=== PATIENT | female | born 1960 ===

== ENCOUNTER 2016-10-19 20:01 | Emergency (ER) | payer MEDICAID, OTHER, SELFPAY ==
[2016-10-19 20:30] VITALS: O2SAT 100
[2016-10-19] MEDS ORDERED: Lactated Ringer's 1,000 ML IVB ONE (20:49)
[2016-10-19] MEDS ORDERED: Sodium Chloride 0.9% 1,000 ML ONE (21:08)
[2016-10-19 21:10] LABS: BASO % 0.6 % (0.0-2.0); EOS # 0.3 K/uL (0.0-0.7); EOS % 4.1 % (0.0-4.0); HEMOGLOBIN 12.7 g/dL (11.0-16.0); LYMPH # 2.4 K/uL (1.0-4.3); LYMPH % 33.2 % (20.0-40.0); MEAN CELL VOLUME 88.1 fL (81.0-99.0); MEAN CORPUSCULAR HEMOGLOBIN 29.6 pg (27.0-31.0); MEAN CORPUSCULAR HGB CONC 33.6 g/dL (33.0-37.0); MEAN PLATELET VOLUME 8.1 fL (7.2-11.7); MONO # 0.5 K/uL (0.0-0.8); MONO % 6.9 % (0.0-10.0); NEUT % 55.2 % (50.0-75.0); RBC 4.3 Mil/uL (3.80-5.20); RED CELL DISTRIBUTION WIDTH 13.2 % (11.5-14.5); WHITE BLOOD COUNT 7.3 K/uL (4.8-10.8)
[2016-10-19] MEDS ORDERED: Lactated Ringer's 1,000 ML ONE (21:14)
[2016-10-19 21:29] LABS: ALBUMIN 3.9 g/dL (3.5-5.0)
[2016-10-19 21:31] LABS: GFR AFRICAN-AMERICAN > 60; GFR NON-AFRICAN AMERICAN > 60
[2016-10-19 21:32] LABS: ALB/GLOB RATIO 1.1 (1.0-2.1); ALT/SGPT 27 U/L (9-52); AST/SGOT 36 U/L (14-36); BLOOD UREA NITROGEN 17 mg/dL (7-17); CALCIUM 9.1 mg/dl (8.6-10.4)
--- NOTE | 2016-10-19 22:19 | C.PDOC ---
History Of Present Illness Pt c/o diarrhea. Time Seen by Provider: 10/19/16 20:41 Chief Complaint (Nursing): GI Problem History Per: Patient Onset/Duration Of Symptoms: Days (2) Current Symptoms Are (Timing): Still Present Severity: Moderate Quality Of Discomfort: Unable To Describe Associated Symptoms: Diarrhea (watery) Alleviating Factors: None Last Bowel Movement: Today Recent travel outside of the [place]: No Additional History Per: Prior Records Past Medical History Reviewed: Historical Data, Nursing Documentation, Vital Signs Vital Signs: Last Vital Signs Temp 98.2 F 10/19/16 20:25 Pulse 84 10/19/16 20:25 Resp 20 10/19/16 20:25 BP 129/81 10/19/16 20:25 Pulse Ox 100 10/19/16 20:25 - Medical History PMH: Depression, Diabetes, HTN, Hypercholesterolemia, Hyperlipidemia, Schizophrenia Surgical History: - [facility] Procedures OTHER SKIN & SUBQ I D (07/30/13) Family History: States: Unknown Family Hx - Social History Hx Tobacco Use: No Hx Alcohol Use: No Hx Substance Use: No - Immunization History Hx Tetanus Toxoid Vaccination: No Hx Influenza Vaccination: Yes Hx Pneumococcal Vaccination: Yes Review Of Systems Except As Marked, All Systems Reviewed And Found Negative. Constitutional: Negative for: Fever, Weakness Cardiovascular: Negative for: Chest Pain Respiratory: Negative for: Shortness of Breath Gastrointestinal: Positive for: Diarrhea. Negative for: Vomiting, Abdominal Pain, Melena, Hematochezia, Hematemesis Musculoskeletal: Negative for: Neck Pain, Back Pain Skin: Negative for: Rash Neurological: Negative for: Weakness, Numbness, Headache, Dizziness Physical Exam - Physical Exam Appears: Non-toxic, No Acute Distress Skin: Normal Color, Warm, Dry, No Rash Head: Atraumatic, Normacephalic Eye(s): bilateral: Normal Inspection, PERRL, EOMI Oral Mucosa: Moist Neck: Normal ROM, Supple Cardiovascular: Rhythm Regular Respiratory: Normal Breath Sounds, No Accessory Muscle Use Gastrointestinal/Abdominal: Soft, No Tenderness, No Distention, No Guarding, No Rebound Back: No CVA Tenderness Extremity: Normal ROM Neurological/Psych: Oriented x3, Normal Motor, Normal Sensation ED Course And Treatment - Laboratory Results Result Diagrams: 10/19/16 21:06 10/19/16 21:06 Lab Interpretation: No Acute Changes O2 Sat by Pulse Oximetry: 100 Pulse Ox Interpretation: Normal Progress - Interventions Interventions:: Observation, Intravenous fluid - Data Reviewed Data Reviewed: Lab, Old records - Patient Status Patient status: Mostly improved - Continuity of Care Discussed patient case with:: Patient, ED Nurse - Patient Plan Patient Plan: Discharge, F/U with PCP, Continue present meds Disposition Counseled Patient/Family Regarding: Studies Performed, Diagnosis, Need For Followup, Rx Given - Disposition Referrals: [facility] [Outside] Disposition: HOME/ ROUTINE Disposition Time: 22:25 Condition: IMPROVED Additional Instructions: Drink plenty of fluids. Follow up in the clinic. Return to the ER if you develop fever, vomiting, abdominal pain, bloody stools, worsening of symptoms or if you have any other concerns. Prescriptions: Bismuth Subsalicylate [Pepto Bismol] 2 tab PO Q1 PRN #16 ctb PRN Reason: Diarrhea Instructions: Acute Diarrhea (ED) Print Language: HEBREW - Clinical Impression Clinical Impression: Acute diarrhea
[2016-10-19] MEDS ORDERED: Bismuth Subsalicylate 262 mg Chew Tab PO STA (22:28)
[2016-10-19 22:39] VITALS: BP 124/68; PULSE 76; RESP 18; TEMP 97.3
== END 2016-10-19 22:55 | disposition home or self-care (01) ==
LOC: C.ER 20:01
DX: R19.7 Diarrhea, unspecified (principal)
CPT/HCPCS: 80053; 85025; 99284; J7120

== ENCOUNTER 2016-11-15 21:10 | Emergency (ER) | payer OTHER ==
[2016-11-15 21:19] VITALS: BP 168/88; PULSE 88; RESP 16; TEMP 98; O2SAT 100
--- NOTE | 2016-11-15 21:50 | C.PDOC ---
History Of Present Illness Pt is here requesting a refill of her psych meds. 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 denies: Suicidal Thoughts, Suicidal Plan Additional History Per: Prior Records Past Medical History Reviewed: Historical Data, Nursing Documentation, Vital Signs Vital Signs: Last Vital Signs Temp 98 F 11/15/16 21:16 Pulse 88 11/15/16 21:16 Resp 16 11/15/16 21:16 BP 168/88 H 11/15/16 21:16 Pulse Ox 100 11/15/16 21:57 - Medical History PMH: Depression, Diabetes, HTN, Hypercholesterolemia, Hyperlipidemia, Schizophrenia Surgical History: - [facility] Procedures OTHER SKIN & SUBQ I D (07/30/13) Family History: States: Unknown Family Hx - Social History Hx Tobacco Use: No Hx Alcohol Use: No Hx Substance Use: No - Immunization History Hx Tetanus Toxoid Vaccination: No Hx Influenza Vaccination: Yes Hx Pneumococcal Vaccination: Yes Review Of Systems Except As Marked, All Systems Reviewed And Found Negative. Constitutional: Negative for: Fever, Weakness Cardiovascular: Negative for: Chest Pain Respiratory: Negative for: Shortness of Breath Gastrointestinal: Negative for: Vomiting, Abdominal Pain Musculoskeletal: Negative for: Neck Pain Skin: Negative for: Rash Neurological: Negative for: Weakness, Numbness Psych: Negative for: Psychosis Physical Exam - Physical Exam Appears: Non-toxic, No Acute Distress Skin: Normal Color, Warm, Dry, No Rash Head: Atraumatic, Normacephalic Eye(s): bilateral: Normal Inspection, PERRL, EOMI Neck: Normal ROM, Supple Cardiovascular: Rhythm Regular Respiratory: Normal Breath Sounds, No Accessory Muscle Use Gastrointestinal/Abdominal: Soft, No Tenderness Back: No CVA Tenderness Extremity: Normal ROM Neurological/Psych: Oriented x3, Normal Motor, Normal Sensation ED Course And Treatment O2 Sat by Pulse Oximetry: 100 Pulse Ox Interpretation: Normal Medical Decision Making Medical Decision Making: Pt's glucose is elevated, however she is asymptomatic and state that she forgot to take her Metformin today, but she has it. Disposition Counseled Patient/Family Regarding: Diagnosis, Need For Followup, Rx Given - Disposition Referrals: Samia Vaughn MD [Staff Provider] - Isis Roberson MD [Staff Provider] - Disposition: HOME/ ROUTINE Disposition Time: 21:50 Condition: STABLE Additional Instructions: Follow up with your primary doctor and your psychiatrist for further evaluation and treatment. Return to the ER if you develop suicidal or homicidal thoughts, worsening of symptoms or if you have any other concerns. Prescriptions: Divalproex [Depakote DR] 3 tab PO HS #30 tcp risperiDONE [RisperDAL Tab] 2 mg PO BID #30 tab Sertraline [Zoloft] 100 mg PO HS #30 tab Instructions: Medicine Refill (ED) Forms: [employer] (Occitan) Print Language: VATICAN CITIZEN - Clinical Impression Clinical Impression: Encounter for medication refill
== END 2016-11-15 22:14 | disposition home or self-care (01) ==
LOC: C.ER 21:10
DX: Z76.0 Encounter for issue of repeat prescription (principal); F20.9 Schizophrenia, unspecified

== ENCOUNTER 2017-06-20 15:07 | Emergency (ER) | payer OTHER ==
[2017-06-20 15:07] VITALS: BMI 28.8
[2017-06-20 15:22] VITALS: TEMP 98.1
--- NOTE | 2017-06-20 15:51 | C.PDOC ---
History Of Present Illness 57-year-old female, presents to the emergency department with multiple complaints. States she has a Hx of diabetes which is "always high" and she ran out of her medication. Last dose was this morning, and patient is requesting a prescription. Secondary complaint is pain in her right shoulder, ongoing intermittently for the past two months. Patient states she has a Hx of bipolar disorder (on Depakote), and feels very sad because her children moved away two weeks ago. Patient denies any changes in appetite, behavior, nausea/vomiting, SI /HI, chest pain, numbness/weakness, shortness of breath, dizziness, or any other associated symptoms. No other complaints at this time. Time Seen by Provider: 06/20/17 15:27 Chief Complaint (Nursing): High Blood Pressure History Per: Patient History/Exam Limitations: no limitations Onset/Duration Of Symptoms: Days Current Symptoms Are (Timing): Still Present Severity: Moderate Past Medical History Reviewed: Historical Data, Nursing Documentation, Vital Signs Vital Signs: Last Vital Signs Temp 98.1 F 06/20/17 15:17 Pulse 70 06/20/17 15:17 Resp 18 06/20/17 15:17 BP 147/85 06/20/17 15:17 Pulse Ox 100 06/20/17 18:13 - Medical History PMH: Depression, Diabetes, HTN, Hypercholesterolemia, Hyperlipidemia, Schizophrenia Denies: Diverticulitis, Chronic Kidney Disease Surgical History: - [facility] Procedures OTHER SKIN & SUBQ I D (07/30/13) Family History: States: No Known Family Hx - Social History Hx Tobacco Use: No Hx Alcohol Use: No Hx Substance Use: No - Immunization History Hx Tetanus Toxoid Vaccination: No Hx Influenza Vaccination: Yes Hx Pneumococcal Vaccination: Yes Review Of Systems Constitutional: Negative for: Fever Cardiovascular: Negative for: Chest Pain, Palpitations, Edema Respiratory: Negative for: Shortness of Breath Gastrointestinal: Negative for: Nausea, Vomiting Musculoskeletal: Negative for: Neck Pain, Back Pain Neurological: Negative for: Weakness, Numbness, Headache, Dizziness Physical Exam - Physical Exam Appears: Well, Non-toxic, No Acute Distress Skin: Normal Color, Warm, Dry, No Rash Head: Atraumatic, Normacephalic Eye(s): bilateral: PERRL Nose: Normal Oral Mucosa: Moist Lips: Normal Appearing Neck: Normal ROM Chest: Symmetrical Cardiovascular: Rhythm Regular, No Murmur Respiratory: Normal Breath Sounds, No Accessory Muscle Use Gastrointestinal/Abdominal: Soft, No Tenderness, No Guarding, No Rebound Extremity: Normal ROM, No Tenderness, No Deformity, No Swelling Neurological/Psych: Oriented x3, Normal Speech, Other (Calm, cooperative. No active psychosis. ) ED Course And Treatment - Laboratory Results Result Diagrams: 06/20/17 16:14 06/20/17 16:14 O2 Sat by Pulse Oximetry: 100 (RA) Pulse Ox Interpretation: Normal Progress - Re-Evaluation Re-evaluation Note: 06/20/17 15:51 D/W CRISIS WILL EVAL IN ER 06/20/17 16:22 SP EVAL CRISIS, CLEARED FOR OUTPT FU. - Data Reviewed Data Reviewed: Lab Disposition Counseled Patient/Family Regarding: Studies Performed, Diagnosis - Disposition Disposition Time: 19:00 Condition: STABLE Forms: [employer] (Nepali) - Clinical Impression Clinical Impression: Hyperglycemia due to type 2 diabetes mellitus, Schizophrenia, Bipolar 1 disorder - Scribe Statement The provider has reviewed the documentation as recorded by the Scribe (Joanne Palmer) All medical record entries made by the Scribe were at my direction and personally dictated by me. I have reviewed the chart and agree that the record accurately reflects my personal performance of the history, physical exam, medical decision making, and the department course for this patient. I have also personally directed, reviewed, and agree with the discharge instructions and disposition. Physician Patient Turnover Patient Signed Over To: Charlie Landaverde Handoff Comments: FU REPEAT LACTATE, FS, DISPO
[2017-06-20 16:20] LABS: EOS # 0.1 K/uL (0.0-0.7); EOS % 2.1 % (0.0-4.0); HEMOGLOBIN 13.3 g/dL (11.0-16.0); LYMPH # 1.2 K/uL (1.0-4.3); LYMPH % 22.8 % (20.0-40.0); MEAN CORPUSCULAR HEMOGLOBIN 30.2 pg (27.0-31.0); MEAN CORPUSCULAR HGB CONC 34.8 g/dL (33.0-37.0); MEAN PLATELET VOLUME 9.4 fL (7.2-11.7); MONO # 0.2 K/uL (0.0-0.8); MONO % 4.3 % (0.0-10.0); NEUT # 3.6 K/uL (1.8-7.0); NEUT % 69.8 % (50.0-75.0); RBC 4.41 Mil/uL (3.80-5.20); RED CELL DISTRIBUTION WIDTH 12.5 % (11.5-14.5); WHITE BLOOD COUNT 5.1 K/uL (4.8-10.8)
[2017-06-20 16:37] LABS: VENOUS BLOOD GAS BASE EXCESS -0.2 mmol/L (0.0-2.0); VENOUS BLOOD GAS PCO2 50 mmHg (40-60); VENOUS BLOOD GAS PO2 26 mm/Hg (30-55); VENOUS BLOOD PH 7.33 (7.32-7.43)
[2017-06-20 16:40] LABS: ALB/GLOB RATIO 1.1 (1.0-2.1); ALT/SGPT 20 U/L (9-52); AST/SGOT 19 U/L (14-36); BLOOD UREA NITROGEN 16 mg/dL (7-17); GFR AFRICAN-AMERICAN > 60; GFR NON-AFRICAN AMERICAN > 60
[2017-06-20] MEDS ORDERED: (Novolin R) Insulin Human Regular 100 units/ml vial IV STA (16:47)
[2017-06-20] MEDS ORDERED: Sodium Chloride 0.9% 1,000 ML IV ONE (16:47)
[2017-06-20] MEDS ORDERED: Sodium Chloride 0.9% 1,000 ML ONE (17:00)
[2017-06-20] MEDS ORDERED: (Novolin R) Insulin Human Regular 100 units/ml vial ONE (17:00)
[2017-06-20 19:05] LABS: VENOUS BLOOD GAS BASE EXCESS 2.7 mmol/L (0.0-2.0); VENOUS BLOOD GAS PCO2 50 mmHg (40-60); VENOUS BLOOD GAS PO2 30 mm/Hg (30-55); VENOUS BLOOD PH 7.37 (7.32-7.43)
[2017-06-20 19:36] VITALS: BP 139/82; PULSE 89; RESP 20; O2SAT 99
== END 2017-06-20 19:31 | disposition home or self-care (01) ==
LOC: C.ER 15:07
DX: E11.65 Type 2 diabetes mellitus with hyperglycemia (principal); F20.9 Schizophrenia, unspecified; F31.9 Bipolar disorder, unspecified; E78.00 Pure hypercholesterolemia, unspecified; I10 Essential (primary) hypertension
CPT/HCPCS: 80053; 80164; 82009; 82803; 82948; 85025; 96360; 99285; J7040

== ENCOUNTER 2017-09-08 11:02 | Inpatient (IN) | payer OTHER ==
[2017-09-08 11:17] VITALS: BMI 26.5
[2017-09-08] MEDS ORDERED: DiphenhydrAMINE 50 mg/ml Inj IVP STA (11:25)
[2017-09-08] MEDS ORDERED: Sodium Chloride 0.9% 1,000 ML IV ONE ×2 (11:25→12:17)
[2017-09-08] MEDS ORDERED: Sodium Chloride 0.9% 1,000 ML ONE (11:39)
[2017-09-08 11:42] LABS: BASO # 0.1 K/uL (0.0-0.2); BASO % 0.5 % (0.0-2.0); LYMPH # 0.8 K/uL (1.0-4.3); LYMPH % 6.3 % (20.0-40.0); MEAN CORPUSCULAR HGB CONC 33.7 g/dL (33.0-37.0); MEAN PLATELET VOLUME 8.6 fL (7.2-11.7); MONO # 0.6 K/uL (0.0-0.8); MONO % 4.9 % (0.0-10.0); NEUT # 11.1 K/uL (1.8-7.0); NEUT % 88.3 % (50.0-75.0); NRBC % 0.1 % (0.0-2.0); RBC 4.18 Mil/uL (3.80-5.20)
[2017-09-08 11:43] LABS: VENOUS BLOOD GAS BASE EXCESS -21.8 mmol/L (0.0-2.0); VENOUS BLOOD GAS PCO2 22 mmHg (40-60); VENOUS BLOOD GAS PO2 29 mm/Hg (30-55); VENOUS BLOOD PH 7.08 (7.32-7.43)
[2017-09-08] MEDS ORDERED: DiphenhydrAMINE 50 mg/ml Inj ONE (11:43)
[2017-09-08 11:47] LABS: WHITE BLOOD COUNT 12.6 K/uL (4.8-10.8)
[2017-09-08 11:48] LABS: PLATELET COUNT 314 K/uL (130-400)
--- NOTE | 2017-09-08 11:59 | C.PDOC ---
History Of Present Illness 57 y/o female with history of DM presents to ED with complaints of poor appetite associated with weakness, nausea and vomiting for 15 days. Patient also complaints of right shoulder pain and urinary frequency. Patietn denies diarrhea, fever, numbness or any other complaints at this time. Time Seen by Provider: 09/08/17 11:17 Chief Complaint (Nursing): Dizziness/Lightheaded History Per: Patient History/Exam Limitations: no limitations Onset/Duration Of Symptoms: Days Current Symptoms Are (Timing): Still Present Past Medical History Reviewed: Historical Data, Nursing Documentation, Vital Signs Vital Signs: Last Vital Signs Temp 97.4 F L 09/08/17 11:10 Pulse 110 H 09/08/17 11:34 Resp 20 09/08/17 11:34 BP 159/93 H 09/08/17 11:34 Pulse Ox 100 09/08/17 12:30 - Medical History PMH: Depression, Diabetes, HTN, Hypercholesterolemia, Hyperlipidemia, Schizophrenia Surgical History: - [facility] Procedures OTHER SKIN & SUBQ I D (07/30/13) Family History: States: No Known Family Hx - Social History Hx Tobacco Use: No Hx Alcohol Use: No Hx Substance Use: No - Immunization History Hx Tetanus Toxoid Vaccination: No Hx Influenza Vaccination: Yes Hx Pneumococcal Vaccination: Yes Review Of Systems Except As Marked, All Systems Reviewed And Found Negative. Gastrointestinal: Positive for: Nausea, Vomiting Genitourinary: Positive for: Frequency Musculoskeletal: Positive for: Shoulder Pain Physical Exam - Physical Exam Appears: Non-toxic, No Acute Distress Skin: Warm, Dry, No Rash Head: Atraumatic, Normacephalic Eye(s): bilateral: Normal Inspection Oral Mucosa: Moist Neck: Normal ROM, Supple Cardiovascular: Rhythm Regular, Other (Tachycardic) Respiratory: Normal Breath Sounds, No Rales, No Rhonchi, No Wheezing Gastrointestinal/Abdominal: Soft, No Tenderness, No Guarding, No Rebound Extremity: Tenderness (Right anterior shoulder), Capillary Refill (<2 seconds), No Deformity Extremity: Bilateral: Normal ROM Neurological/Psych: Oriented x3, Normal Speech, Normal Cognition ED Course And Treatment - Laboratory Results Result Diagrams: 09/08/17 11:37 09/08/17 11:37 ECG: Interpreted By Me, Viewed By Me ECG Rhythm: Sinus Tachycardia Rate From EC (BPM) O2 Sat by Pulse Oximetry: 100 (RA) Pulse Ox Interpretation: Normal Critical Care Time - Critical Care Note Total Time (in mins): 75 Documented critical care: time excludes all time spent performing seperately billable procedures. Medical Decision Making Medical Decision Making: Assessment: DKA Plan: Benadryl, Reglan, Iv fluids administered. Blood work, ECG, UA ordered Progress: 1229pm: Spoke to Hospitalist will admit patient for DKA 1234pm: Dr. Fred cope on consult for critical care Disposition Discussed With Dr.: Yossi Cope Doctor Will See Patient In The: ED Counseled Patient/Family Regarding: Studies Performed, Diagnosis - Disposition Disposition: HOSPITALIZED Disposition Time: 12:29 Condition: FAIR Forms: [facility] (Argentine) - Clinical Impression Clinical Impression: DKA (diabetic ketoacidoses)
[2017-09-08] MEDS ORDERED: Insulin Human Regular 100 UNIT in Sodium Chloride 0.9% 99 ML IV SCH ×2 (12:00→13:55)
[2017-09-08 12:18] LABS: BANDS 2 % (0-2); NEUTROPHIL 86 % (50-75); TOTAL CELLS COUNTED 100
[2017-09-08 12:19] LABS: LYMPHOCYTE 9 % (20-40); MONOCYTE 3 % (0-10); PLATELET ESTIMATE NORMAL (NORMAL)
[2017-09-08 12:29] LABS: ALB/GLOB RATIO 0.9 (1.0-2.1); ALBUMIN 4.1 g/dL (3.5-5.0); ALT/SGPT 13 U/L (9-52); AST/SGOT 14 U/L (14-36); BLOOD UREA NITROGEN 20 mg/dL (7-17); CALCIUM 9.7 mg/dl (8.6-10.4); GFR AFRICAN-AMERICAN 51; GFR NON-AFRICAN AMERICAN 42
[2017-09-08] MEDS ORDERED: Sodium Chloride 0.9% 1,000 ML IV SCH ×2 (12:30→16:56)
--- NOTE | 2017-09-08 12:31 | RAD ---
PROCEDURE: CHEST RADIOGRAPH, 1 VIEW HISTORY: SOB COMPARISON: 09/25/2015. FINDINGS: LUNGS: The lungs are well inflated and clear. PLEURA: No pneumothorax or pleural fluid seen. CARDIOVASCULAR: Normal. OSSEOUS STRUCTURES: No significant abnormalities. VISUALIZED UPPER ABDOMEN: Normal. OTHER FINDINGS: None. IMPRESSION: No active pulmonary disease.
--- NOTE | 2017-09-08 12:54 | CP.PCM.CON ---
History of Present Illness - History of Present Illness History of Present Illness: 57 y/o female with pmx of DM x 15 yrs presents to [facility] with c/o frequent urination, nausea/vomitting and abdominal pain. Patient denies any fevers, denies any chest pain, denies any dizziness. Patient takes metformin from her primary. Patient does not check her Blood glucose at home. ROS: n/v/abdominal pain all otherneg SH: denies any smoking denies any abdominal pain fh: parents with diabetes Review of Systems - Review of Systems Review of Systems: as per HPI Past Patient History - Infectious Disease Hx of Infectious Diseases: None - Past Medical History & Family History Past Medical History?: Yes - Past Social History Smoking Status: Never Smoked - CARDIAC Hx Hypercholesterolemia: Yes Hx Hypertension: Yes - PULMONARY Hx Respiratory Disorders: No - NEUROLOGICAL Hx Neurological Disorder: No - HEENT Hx HEENT Problems: No Other/Comment: to see far away uses glasse - RENAL Hx Chronic Kidney Disease: No - ENDOCRINE/METABOLIC Hx Endocrine Disorders: Yes Hx Diabetes Mellitus Type 2: Yes - HEMATOLOGICAL/ONCOLOGICAL Hx Blood Disorders: No - INTEGUMENTARY Hx Dermatological Problems: No - MUSCULOSKELETAL/RHEUMATOLOGICAL Hx Musculoskeletal Disorders: No Hx Falls: No - GASTROINTESTINAL Hx Diverticulitis: No - GENITOURINARY/GYNECOLOGICAL Hx Genitourinary Disorders: Yes Hx Urinary Tract Infection: Yes - PSYCHIATRIC Hx Depression: Yes Hx Schizophrenia: Yes Hx Substance Use: No - SURGICAL HISTORY Hx Surgeries: Yes Hx Tubal Ligation: Yes Other/Comment: ;fibroids removed - ANESTHESIA Hx Anesthesia: Yes Hx Anesthesia Reactions: No Meds Allergies/Adverse Reactions: Allergies Allergy/AdvReac Type Severity Reaction Status Date / Time No Known Allergies Allergy Verified 09/08/17 11:16 - Medications Medications: Current Medications Insulin Human Regular 100 unit (/ Sodium Chloride) 100 mls @ 6.46 mls/hr IV .[id number] JOSE LUIS; 0.1 UNIT/KG/HR PRN Reason: Protocol Last Admin: 09/08/17 12:44 Dose: 0.1 unit/kg/hr, 6.46 mls/hr Sodium Chloride (Sodium Chloride 0.9%) 1,000 mls @ 150 mls/hr IV .Q6H40M JOSE LUIS Sodium Chloride (Sodium Chloride 0.9%) 1,000 mls @ 1,000 mls/hr IV .Q1H ONE Stop: 09/08/17 13:16 Last Admin: 09/08/17 12:20 Dose: 1,000 mls/hr Physical Exam - Head Exam Head Exam: ATRAUMATIC, NORMAL INSPECTION, NORMOCEPHALIC - Eye Exam Eye Exam: EOMI, Normal appearance Pupil Exam: NORMAL ACCOMODATION - ENT Exam ENT Exam: Mucous Membranes Moist - Neck Exam Neck exam: Positive for: Normal Inspection - Respiratory Exam Respiratory Exam: Clear to Auscultation Bilateral, NORMAL BREATHING PATTERN - Cardiovascular Exam Cardiovascular Exam: Tachycardia, REGULAR RHYTHM, +S1, +S2 - GI/Abdominal Exam GI & Abdominal Exam: Normal Bowel Sounds, Soft. absent: Distended, Guarding - Extremities Exam Extremities exam: Positive for: normal inspection Results - Vital Signs Recent Vital Signs: Last Vital Signs Temp 97.4 F L 09/08/17 11:10 Pulse 110 H 09/08/17 11:34 Resp 20 09/08/17 11:34 BP 159/93 H 09/08/17 11:34 Pulse Ox 100 09/08/17 12:34 - Labs Result Diagrams: 09/08/17 11:37 09/08/17 11:37 Labs: Laboratory Results - last 24 hr 09/08/17 09/08/17 09/08/17 11:12 11:37 11:37 WBC 12.6 H D RBC 4.18 Hgb 13.0 Hct 38.5 MCV 92.0 D MCH 31.0 MCHC 33.7 RDW 13.0 Plt Count 314 D MPV 8.6 Neut % (Auto) 88.3 H Lymph % (Auto) 6.3 L Jenkins % (Auto) 4.9 Eos % (Auto) 0.0 Baso % (Auto) 0.5 Neut # (Auto) 11.1 H Lymph # (Auto) 0.8 L Jenkins # (Auto) 0.6 Eos # (Auto) 0.0 Baso # (Auto) 0.1 Neutrophils % (Manual) 86 H Band Neutrophils % 2 Lymphocytes % (Manual) 9 L Monocytes % (Manual) 3 Platelet Estimate Normal pO2 VBG pH VBG pCO2 VBG HCO3 VBG Total CO2 VBG O2 Sat (Calc) VBG Base Excess VBG Potassium Glucose Lactate Crit Value Called To Crit Value Called By Crit Value Read Back Blood Gas Notified Time Sodium 132 Potassium 5.0 Chloride 95 L Carbon Dioxide 6 L* D Anion Gap 37 H BUN 20 H Creatinine 1.3 H Est GFR ( Amer) 51 Est GFR (Non-Af Amer) 42 POC Glucose (mg/dL) > 500 H* Random Glucose 576 H* D Calcium 9.7 Magnesium 2.0 Total Bilirubin 1.0 AST 14 D ALT 13 Alkaline Phosphatase 187 H D Troponin I < 0.0120 Total Protein 8.7 H Albumin 4.1 Albumin/Globulin Ratio 0.9 L TSH 3rd Generation 2.11 Venous Blood Potassium 09/08/17 09/08/17 11:39 12:13 WBC RBC Hgb Hct MCV MCH MCHC RDW Plt Count MPV Neut % (Auto) Lymph % (Auto) Jenkins % (Auto) Eos % (Auto) Baso % (Auto) Neut # (Auto) Lymph # (Auto) Jenkins # (Auto) Eos # (Auto) Baso # (Auto) Neutrophils % (Manual) Band Neutrophils % Lymphocytes % (Manual) Monocytes % (Manual) Platelet Estimate pO2 29 L VBG pH 7.08 L* VBG pCO2 22 L VBG HCO3 6.1 VBG Total CO2 7.2 L VBG O2 Sat (Calc) 54.9 VBG Base Excess -21.8 L VBG Potassium 4.8 Glucose 569 H* D Lactate 2.0 Crit Value Called To Er, Crit Value Called By Rivas dasilva,magdy Crit Value Read Back Y Blood Gas Notified Time 1150 Sodium 130.0 L Potassium Chloride 90.0 L Carbon Dioxide Anion Gap BUN Creatinine Est GFR ( Amer) Est GFR (Non-Af Amer) POC Glucose (mg/dL) > 500 H* Random Glucose Calcium Magnesium Total Bilirubin AST ALT Alkaline Phosphatase Troponin I Total Protein Albumin Albumin/Globulin Ratio TSH 3rd Generation Venous Blood Potassium 4.8 Assessment & Plan - Assessment and Plan (Free Text) Assessment: Anion GAp metabolic acidosis 2nd DKA: start IVF ns at 150 ml/hr, start insuln at 0.1 units/kg/hr, BGM q1hrs -bgm/mag/phos/bhb q6hrs -change to d51/2NS when BGM <250 -dvt ppx lovenox -pud ppx not indicated -leukocytossis suspect stress related, hold abx unless, febrile, gore culture -Patient remains hemodynamically stable. -TRISTON: avoid nephrotix drugs, monitor urine output -at risk of cad: will benefit from asa + statin -dvt pp lovenox -pud ppx not indicated - Date & Time Date: 09/08/17 Time: 12:56
[2017-09-08 13:22] LABS: SQUAMOUS EPITHIAL 7 /hpf (0-5); URINE BILIRUBIN NEGATIVE (NEGATIVE); URINE BLOOD 2+ (NEGATIVE); URINE CLARITY Clear (Clear); URINE COLOR Straw (YELLOW); URINE GLUCOSE (UA) 3+ mg/dL (Normal); URINE LEUKOCYTE ESTERASE NEG Leu/uL (Negative); URINE PROTEIN 1+ mg/dL (NEGATIVE); URINE UROBILINOGEN NORMAL mg/dL (0.2-1.0)
--- NOTE | 2017-09-08 14:45 | CP.PCM.HP ---
<SilasRubia SGuy - Last Filed: 09/08/17 16:43> History of Present Illness - History of Present Illness History of Present Illness: Code status: DNR/DNI (discussed with patient on 09/08/17 at 14:00) Advanced directives: denies Healthcare proxy: - Ricardo Dallas ([phone]) CC: nausea/vomiting, dizziness, urinary frequency HPI: 57-year-old female with past medical history of DM, HTN, HLD, schizophrenia presents to the ED for evaluation of dizziness, cloudy vision, nausea and vomiting. She states she arrived to the ER via taxi. Patient states she has had a poor appetite for the past 15 days. She states she has been eating yogurt and fruits. She also reports urinary frequency and stress incontinence. She denies taking insulin and reports regularly taking Metformin 500mg BID. She reports improvement of nausea and blurry vision since arrival to hospital. She denies headache, chest pain, shortness of breath, palpitations, diarrhea, constipation or dysuria. She reports previous episodes of hyperglycemia which she had an ER visit in June 2017. She does not recall her last visit to her PMD. Per clinic chart her last visit to the [facility] for Diabetes was on 03/25/[address] Paulino who prescribed her Lantus 20 units BID however patient stated she does not take insulin at home. PMD: Dr. 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 absent: Chills, Fever, Headache - EENT Eyes: Blurred Vision - Cardiovascular Cardiovascular: absent: Chest Pain, Dyspnea, Leg Edema, Palpitations - Respiratory Respiratory: absent: Dyspnea - Gastrointestinal Gastrointestinal: Nausea, Vomiting. absent: Abdominal Pain - Genitourinary Genitourinary: Urinary Frequency, Urinary Urgency. absent: Dysuria, Hematuria - Neurological Neurological: Dizziness - Endocrine Endocrine: Polydipsia, Polyuria Past Patient History - Infectious Disease Hx of Infectious Diseases: None - Past Medical History & Family History Past Medical History?: Yes - Past Social History Smoking Status: Never Smoked - CARDIAC Hx Hypercholesterolemia: Yes Hx Hypertension: Yes - PULMONARY Hx Respiratory Disorders: No - NEUROLOGICAL Hx Neurological Disorder: No - HEENT Hx HEENT Problems: No Other/Comment: to see far away uses glasse - RENAL Hx Chronic Kidney Disease: No - ENDOCRINE/METABOLIC Hx Endocrine Disorders: Yes Hx Diabetes Mellitus Type 2: Yes - HEMATOLOGICAL/ONCOLOGICAL Hx Blood Disorders: No - INTEGUMENTARY Hx Dermatological Problems: No - MUSCULOSKELETAL/RHEUMATOLOGICAL Hx Musculoskeletal Disorders: No Hx Falls: No - GASTROINTESTINAL Hx Diverticulitis: No - GENITOURINARY/GYNECOLOGICAL Hx Genitourinary Disorders: Yes Hx Urinary Tract Infection: Yes - PSYCHIATRIC Hx Depression: Yes Hx Schizophrenia: Yes Hx Substance Use: No - SURGICAL HISTORY Hx Surgeries: Yes Hx Tubal Ligation: Yes Other/Comment: ;fibroids removed - ANESTHESIA Hx Anesthesia: Yes Hx Anesthesia Reactions: No Meds Allergies/Adverse Reactions: Allergies Allergy/AdvReac Type Severity Reaction Status Date / Time No Known Allergies Allergy Verified 09/08/17 11:16 Physical Exam - Constitutional Appears: No Acute Distress - Head Exam Head Exam: ATRAUMATIC, NORMAL INSPECTION - Eye Exam Eye Exam: EOMI, Normal appearance, PERRL. absent: Scleral icterus Pupil Exam: NORMAL ACCOMODATION - ENT Exam ENT Exam: Mucous Membranes Dry - Respiratory Exam Respiratory Exam: Clear to Auscultation Bilateral, NORMAL BREATHING PATTERN. absent: Rales, Rhonchi, Wheezes - Cardiovascular Exam Cardiovascular Exam: Tachycardia, REGULAR RHYTHM, +S1, +S2. absent: JVD - GI/Abdominal Exam GI & Abdominal Exam: Normal Bowel Sounds, Soft. absent: Tenderness - Extremities Exam Extremities exam: Positive for: normal capillary refill, normal inspection, pedal pulses present. Negative for: pedal edema, tenderness - Neurological Exam Neurological exam: Alert, CN II-XII Intact, Oriented x3 - Expanded Neurological Exam Expanded Patient oriented to: person, place, time Cranial nerves: EOM's Intact: Normal Sensory exam: Lower Extremity Light Touch: Normal, Upper Extremity Light Touch: Normal Neuro motor strength exam: Left Upper Extremity: 5, Right Upper Extremity: 5, Left Lower Extremity: 5, Right Lower Extremity: 5 Coma Scale Eye Opening: SPONTANEOUS Coma Scale Motor Response: OBEYS COMMANDS Coma Scale Verbal: Oriented Coma Scale Total: 15 - Psychiatric Exam Psychiatric exam: Depressed, Normal Affect - Skin Skin Exam: Normal Color Results - Vital Signs Recent Vital Signs: Last Vital Signs Temp 98.5 F 09/08/17 13:00 Pulse 111 H 09/08/17 14:10 Resp 27 H 09/08/17 14:10 BP 153/70 H 09/08/17 14:00 Pulse Ox 100 09/08/17 14:10 - Labs Result Diagrams: 09/08/17 11:37 09/08/17 11:37 Labs: Laboratory Results - last 24 hr 09/08/17 09/08/17 09/08/17 11:12 11:37 11:37 WBC 12.6 H D RBC 4.18 Hgb 13.0 Hct 38.5 MCV 92.0 D MCH 31.0 MCHC 33.7 RDW 13.0 Plt Count 314 D MPV 8.6 Neut % (Auto) 88.3 H Lymph % (Auto) 6.3 L Hernando % (Auto) 4.9 Eos % (Auto) 0.0 Baso % (Auto) 0.5 Neut # (Auto) 11.1 H Lymph # (Auto) 0.8 L Hernando # (Auto) 0.6 Eos # (Auto) 0.0 Baso # (Auto) 0.1 Neutrophils % (Manual) 86 H Band Neutrophils % 2 Lymphocytes % (Manual) 9 L Monocytes % (Manual) 3 Platelet Estimate Normal pO2 VBG pH VBG pCO2 VBG HCO3 VBG Total CO2 VBG O2 Sat (Calc) VBG Base Excess VBG Potassium Glucose Lactate Crit Value Called To Crit Value Called By Crit Value Read Back Blood Gas Notified Time Sodium 132 Potassium 5.0 Chloride 95 L Carbon Dioxide 6 L* D Anion Gap 37 H BUN 20 H Creatinine 1.3 H Est GFR ( Amer) 51 Est GFR (Non-Af Amer) 42 POC Glucose (mg/dL) > 500 H* Random Glucose 576 H* D Calcium 9.7 Phosphorus Magnesium 2.0 Total Bilirubin 1.0 AST 14 D ALT 13 Alkaline Phosphatase 187 H D Troponin I < 0.0120 Total Protein 8.7 H Albumin 4.1 Globulin 4.6 H Albumin/Globulin Ratio 0.9 L TSH 3rd Generation 2.11 Venous Blood Potassium Urine Color Urine Clarity Urine pH Ur Specific [place] Urine Protein Urine Glucose (UA) Urine Ketones Urine Blood Urine Nitrate Urine Bilirubin Urine Urobilinogen Ur Leukocyte Esterase Urine WBC (Auto) Urine RBC (Auto) Ur Squamous Epith Cells B-Hydroxybutyrate 09/08/17 09/08/17 09/08/17 11:39 12:13 12:18 WBC RBC Hgb Hct MCV MCH MCHC RDW Plt Count MPV Neut % (Auto) Lymph % (Auto) Hernando % (Auto) Eos % (Auto) Baso % (Auto) Neut # (Auto) Lymph # (Auto) Hernando # (Auto) Eos # (Auto) Baso # (Auto) Neutrophils % (Manual) Band Neutrophils % Lymphocytes % (Manual) Monocytes % (Manual) Platelet Estimate pO2 29 L VBG pH 7.08 L* VBG pCO2 22 L VBG HCO3 6.1 VBG Total CO2 7.2 L VBG O2 Sat (Calc) 54.9 VBG Base Excess -21.8 L VBG Potassium 4.8 Glucose 569 H* D Lactate 2.0 Crit Value Called To md Ron Crit Value Called By Rivas dasilva rrt Crit Value Read Back Y Blood Gas Notified Time 1150 Sodium 130.0 L Potassium Chloride 90.0 L Carbon Dioxide Anion Gap BUN Creatinine Est GFR ( Amer) Est GFR (Non-Af Amer) POC Glucose (mg/dL) > 500 H* Random Glucose Calcium Phosphorus 5.1 H Magnesium Total Bilirubin AST ALT Alkaline Phosphatase Troponin I Total Protein Albumin Globulin Albumin/Globulin Ratio TSH 3rd Generation Venous Blood Potassium 4.8 Urine Color Urine Clarity Urine pH Ur Specific [place] Urine Protein Urine Glucose (UA) Urine Ketones Urine Blood Urine Nitrate Urine Bilirubin Urine Urobilinogen Ur Leukocyte Esterase Urine WBC (Auto) Urine RBC (Auto) Ur Squamous Epith Cells B-Hydroxybutyrate 9.68 H 09/08/17 09/08/17 13:09 14:04 WBC RBC Hgb Hct MCV MCH MCHC RDW Plt Count MPV Neut % (Auto) Lymph % (Auto) Hernando % (Auto) Eos % (Auto) Baso % (Auto) Neut # (Auto) Lymph # (Auto) Hernando # (Auto) Eos # (Auto) Baso # (Auto) Neutrophils % (Manual) Band Neutrophils % Lymphocytes % (Manual) Monocytes % (Manual) Platelet Estimate pO2 VBG pH VBG pCO2 VBG HCO3 VBG Total CO2 VBG O2 Sat (Calc) VBG Base Excess VBG Potassium Glucose Lactate Crit Value Called To Crit Value Called By Crit Value Read Back Blood Gas Notified Time Sodium Potassium Chloride Carbon Dioxide Anion Gap BUN Creatinine Est GFR ( Amer) Est GFR (Non-Af Amer) POC Glucose (mg/dL) 497 H* Random Glucose Calcium Phosphorus Magnesium Total Bilirubin AST ALT Alkaline Phosphatase Troponin I Total Protein Albumin Globulin Albumin/Globulin Ratio TSH 3rd Generation Venous Blood Potassium Urine Color Straw Urine Clarity Clear Urine pH 5.0 Ur Specific [place] 1.011 Urine Protein 1+ H Urine Glucose (UA) 3+ H Urine Ketones 2+ H Urine Blood 2+ H Urine Nitrate Negative Urine Bilirubin Negative Urine Urobilinogen Normal Ur Leukocyte Esterase Neg Urine WBC (Auto) 1 Urine RBC (Auto) < 1 Ur Squamous Epith Cells 7 H B-Hydroxybutyrate Assessment & Plan - Assessment and Plan (Free Text) Assessment: DKA - Patient admitted to ICU - Type II Diabetes - Anion Gap 31 - Glucose on admission 446 --> 576 - B-Hydroxybutyrate: 9.68 - Chest Xray: No active pulmonary disease - EKG: NSR at 135bpm - UA: +glucose; ketones and blood - Medications: * Insulin Drip (will transition to SC insulin when anion gap is resolved and bicarb is >18) * Zofran 4mg IV q6 prn for nausea * NS @150cc/hr Metabolic Acidosis with Anion Gap - Secondary to DKA - Anion Gap 31 - VBG: pH 7.08; HCO3 6.1 Leukocytosis - Possibly secondary to Inflammatory Reaction due to DKA vs. Infection - WBC 12.6 with Left shift - UA Negative - f/u blood culture; urine culture History of Uncontrolled Diabetes Type II - Endocrinology consult: Dr. Gonzales --> help appreciated - hA1c (03/25/17): 13.9 - Please see DKA assessment - Per patient she was only taking Metformin 500mg bid at home - Patient is a [facility] patient and from her last visit for Diabetes on 03/25/17 Dr. Paulino prescribed her Lantus 20 units BID however patient stated she does not take insulin at home either due to aversion to insulin or due to monetary means. - After DKA resolves will start Novolog 70/30 - After DKA resolves will order a microalbumin urine/Creatinine ratio Microhematuria - UA: blood; RBC <1 - Will repeat UA after DKA resolves; if microhematuria persists will order a renal/bladder scan History of HTN - Restarted Home Medications: * Losartan Potassium 100mg daily - TSH (09/08/17): 2.11 - ECHO (09/26/15): EF 58%; normal biventricular function; insignificant trace of mitral and aortic regurgitation; no pericardial effusion History of HLD - Home Medication: Simvastatin 10mg HS * Replaced in house with Crestor 5mg HS - Lipid Panel (03/25/17): Triglycerices 314; Total Cholesterol 192; LDL 106; HDL 45 - f/u Lipid Panel History of Schizophrenia/questionable depression - Restarted Home Medications: * Depakote DR 500mg daily * Risperidone 1mg HS * Sertraline 100mg HS - f/u valproic acid level Prophylaxis - Lovenox 30mg SC Daily (DVT risk of 1) - SCDs - Protonix 40mg IV daily Case discussed with Dr. Yossi Rosen PGY-1 <Yossi Moore J - Last Filed: 09/09/17 17:30> Results - Vital Signs Recent Vital Signs: Last Vital Signs Temp 98.2 F 09/09/17 16:00 Pulse 97 H 09/09/17 17:00 Resp 15 09/09/17 17:00 BP 151/53 H 09/09/17 16:44 Pulse Ox 100 09/09/17 17:00 - Labs Result Diagrams: 09/09/17 06:23 09/09/17 14:27 Labs: Laboratory Results - last 24 hr 09/08/17 09/08/17 09/08/17 18:02 18:56 20:01 WBC RBC Hgb Hct MCV MCH MCHC RDW Plt Count MPV Neut % (Auto) Lymph % (Auto) Hernando % (Auto) Eos % (Auto) Baso % (Auto) Neut # (Auto) Lymph # (Auto) Hernando # (Auto) Eos # (Auto) Baso # (Auto) Puncture Site pCO2 pO2 HCO3 ABG pH ABG Total CO2 ABG O2 Saturation ABG Base Excess ABG Hemoglobin ABG Carboxyhemoglobin POC ABG HHb (Measured) ABG Methemoglobin Fredi Test VBG pH VBG pCO2 VBG HCO3 VBG Total CO2 VBG O2 Sat (Calc) VBG Base Excess VBG Potassium A-a O2 Difference Respiratory Index Hgb O2 Saturation Sodium Chloride Glucose Lactate FiO2 Potassium Carbon Dioxide Anion Gap BUN Creatinine Est GFR ( Amer) Est GFR (Non-Af Amer) POC Glucose (mg/dL) 325 H 277 H 231 H Random Glucose Calcium Phosphorus Magnesium Total Bilirubin AST ALT Alkaline Phosphatase Total Protein Albumin Globulin Albumin/Globulin Ratio Venous Blood Potassium Urine Opiates Screen Urine Methadone Screen Ur Barbiturates Screen Ur Phencyclidine Scrn Ur Amphetamines Screen U Benzodiazepines Scrn U Oth Cocaine Metabols U Cannabinoids Screen B-Hydroxybutyrate 09/08/17 09/08/17 09/08/17 21:07 22:00 22:14 WBC RBC Hgb Hct MCV MCH MCHC RDW Plt Count MPV Neut % (Auto) Lymph % (Auto) Hernando % (Auto) Eos % (Auto) Baso % (Auto) Neut # (Auto) Lymph # (Auto) Hernando # (Auto) Eos # (Auto) Baso # (Auto) Puncture Site pCO2 pO2 33 HCO3 ABG pH ABG Total CO2 ABG O2 Saturation ABG Base Excess ABG Hemoglobin ABG Carboxyhemoglobin POC ABG HHb (Measured) ABG Methemoglobin Fredi Test VBG pH 7.28 L VBG pCO2 33 L VBG HCO3 15.8 VBG Total CO2 16.5 L VBG O2 Sat (Calc) 70.3 H VBG Base Excess -10.2 L VBG Potassium 3.5 L A-a O2 Difference Respiratory Index Hgb O2 Saturation Sodium 138.0 Chloride 111.0 H Glucose 199 H Lactate 1.3 FiO2 Potassium Carbon Dioxide Anion Gap BUN Creatinine Est GFR ( Amer) Est GFR (Non-Af Amer) POC Glucose (mg/dL) 216 H 214 H Random Glucose Calcium Phosphorus Magnesium Total Bilirubin AST ALT Alkaline Phosphatase Total Protein Albumin Globulin Albumin/Globulin Ratio Venous Blood Potassium 3.5 L Urine Opiates Screen Urine Methadone Screen Ur Barbiturates Screen Ur Phencyclidine Scrn Ur Amphetamines Screen U Benzodiazepines Scrn U Oth Cocaine Metabols U Cannabinoids Screen B-Hydroxybutyrate 09/08/17 09/08/17 09/09/17 22:29 23:03 06:23 WBC RBC Hgb Hct MCV MCH MCHC RDW Plt Count MPV Neut % (Auto) Lymph % (Auto) Hernando % (Auto) Eos % (Auto) Baso % (Auto) Neut # (Auto) Lymph # (Auto) Hernando # (Auto) Eos # (Auto) Baso # (Auto) Puncture Site pCO2 pO2 HCO3 ABG pH ABG Total CO2 ABG O2 Saturation ABG Base Excess ABG Hemoglobin ABG Carboxyhemoglobin POC ABG HHb (Measured) ABG Methemoglobin Fredi Test VBG pH VBG pCO2 VBG HCO3 VBG Total CO2 VBG O2 Sat (Calc) VBG Base Excess VBG Potassium A-a O2 Difference Respiratory Index Hgb O2 Saturation Sodium 137 135 Chloride 110 H 109 H Glucose Lactate FiO2 Potassium 4.0 4.1 Carbon Dioxide 17 L 12 L Anion Gap 14 18 BUN 13 15 Creatinine 0.8 1.0 Est GFR ( Amer) > 60 > 60 Est GFR (Non-Af Amer) > 60 57 POC Glucose (mg/dL) 205 H Random Glucose 203 H 461 H* D Calcium 8.1 L 8.0 L Phosphorus 1.4 L 2.4 L Magnesium 1.7 1.8 Total Bilirubin 0.6 0.6 AST 27 18 ALT 16 19 Alkaline Phosphatase 139 H 138 H Total Protein 6.7 6.1 L Albumin 3.0 L 2.6 L Globulin 3.7 3.4 Albumin/Globulin Ratio 0.8 L 0.8 L Venous Blood Potassium Urine Opiates Screen Urine Methadone Screen Ur Barbiturates Screen Ur Phencyclidine Scrn Ur Amphetamines Screen U Benzodiazepines Scrn U Oth Cocaine Metabols U Cannabinoids Screen B-Hydroxybutyrate 3.17 H 09/09/17 09/09/17 09/09/17 06:23 06:30 08:04 WBC 5.0 D RBC 3.18 L Hgb 9.9 L D Hct 28.4 L MCV 89.4 D MCH 31.0 MCHC 34.7 RDW 12.8 Plt Count 171 D MPV 8.4 Neut % (Auto) 80.1 H Lymph % (Auto) 10.3 L Hernando % (Auto) 8.8 Eos % (Auto) 0.5 Baso % (Auto) 0.3 Neut # (Auto) 4.0 Lymph # (Auto) 0.5 L Hernando # (Auto) 0.4 Eos # (Auto) 0.0 Baso # (Auto) 0.0 Puncture Site pCO2 pO2 HCO3 ABG pH ABG Total CO2 ABG O2 Saturation ABG Base Excess ABG Hemoglobin ABG Carboxyhemoglobin POC ABG HHb (Measured) ABG Methemoglobin Fredi Test VBG pH VBG pCO2 VBG HCO3 VBG Total CO2 VBG O2 Sat (Calc) VBG Base Excess VBG Potassium A-a O2 Difference Respiratory Index Hgb O2 Saturation Sodium Chloride Glucose Lactate FiO2 Potassium Carbon Dioxide Anion Gap BUN Creatinine Est GFR ( Amer) Est GFR (Non-Af Amer) POC Glucose (mg/dL) 436 H* 417 H* Random Glucose Calcium Phosphorus Magnesium Total Bilirubin AST ALT Alkaline Phosphatase Total Protein Albumin Globulin Albumin/Globulin Ratio Venous Blood Potassium Urine Opiates Screen Urine Methadone Screen Ur Barbiturates Screen Ur Phencyclidine Scrn Ur Amphetamines Screen U Benzodiazepines Scrn U Oth Cocaine Metabols U Cannabinoids Screen B-Hydroxybutyrate 09/09/17 09/09/17 09/09/17 11:19 14:27 14:34 WBC RBC Hgb Hct MCV MCH MCHC RDW Plt Count MPV Neut % (Auto) Lymph % (Auto) Hernando % (Auto) Eos % (Auto) Baso % (Auto) Neut # (Auto) Lymph # (Auto) Hernando # (Auto) Eos # (Auto) Baso # (Auto) Puncture Site Rr pCO2 28 L pO2 91 HCO3 16.4 L ABG pH 7.31 L ABG Total CO2 15.0 L ABG O2 Saturation 99.0 H ABG Base Excess -10.9 L ABG Hemoglobin 9.7 L ABG Carboxyhemoglobin 2.0 H POC ABG HHb (Measured) 1.0 ABG Methemoglobin 1.5 Fredi Test Pos VBG pH VBG pCO2 VBG HCO3 VBG Total CO2 VBG O2 Sat (Calc) VBG Base Excess VBG Potassium A-a O2 Difference 24.0 Respiratory Index 0.3 Hgb O2 Saturation 95.5 Sodium 134 Chloride 109 H Glucose Lactate FiO2 21.0 Potassium 3.6 Carbon Dioxide 14 L Anion Gap 14 BUN 14 Creatinine 1.1 Est GFR ( Amer) > 60 Est GFR (Non-Af Amer) 51 POC Glucose (mg/dL) 448 H* Random Glucose 445 H* Calcium 8.2 L Phosphorus Magnesium Total Bilirubin AST ALT Alkaline Phosphatase Total Protein Albumin Globulin Albumin/Globulin Ratio Venous Blood Potassium Urine Opiates Screen Urine Methadone Screen Ur Barbiturates Screen Ur Phencyclidine Scrn Ur Amphetamines Screen U Benzodiazepines Scrn U Oth Cocaine Metabols U Cannabinoids Screen B-Hydroxybutyrate 09/09/17 09/09/17 14:44 16:16 WBC RBC Hgb Hct MCV MCH MCHC RDW Plt Count MPV Neut % (Auto) Lymph % (Auto) [place] % (Auto) Eos % (Auto) Baso % (Auto) Neut # (Auto) Lymph # (Auto) [place] # (Auto) Eos # (Auto) Baso # (Auto) Puncture Site pCO2 pO2 HCO3 ABG pH ABG Total CO2 ABG O2 Saturation ABG Base Excess ABG Hemoglobin ABG Carboxyhemoglobin POC ABG HHb (Measured) ABG Methemoglobin Fredi Test VBG pH VBG pCO2 VBG HCO3 VBG Total CO2 VBG O2 Sat (Calc) VBG Base Excess VBG Potassium A-a O2 Difference Respiratory Index Hgb O2 Saturation Sodium Chloride Glucose Lactate FiO2 Potassium Carbon Dioxide Anion Gap BUN Creatinine Est GFR ( Amer) Est GFR (Non-Af Amer) POC Glucose (mg/dL) 416 H* Random Glucose Calcium Phosphorus Magnesium Total Bilirubin AST ALT Alkaline Phosphatase Total Protein Albumin Globulin Albumin/Globulin Ratio Venous Blood Potassium Urine Opiates Screen Negative Urine Methadone Screen Negative Ur Barbiturates Screen Negative Ur Phencyclidine Scrn Negative Ur Amphetamines Screen Negative U Benzodiazepines Scrn Negative U Oth Cocaine Metabols Negative U Cannabinoids Screen Negative B-Hydroxybutyrate Attending/Attestation - Attestation I have personally seen and examined this patient.: Yes I have fully participated in the care of the patient.: Yes I have reviewed all pertinent clinical information: Yes Notes (Text): 09/09/17 17:29 Patient was seen and examined in the ICU on 09/08/[address] Rosen evaluated the patient. Yossi Moore D.O.
[2017-09-08 16:56] LABS: LDL CHOLESTEROL 86 mg/dL (0-129)
[2017-09-08 16:57] LABS: ALB/GLOB RATIO 0.8 (1.0-2.1); ALBUMIN 3.1 g/dL (3.5-5.0); ALT/SGPT 22 U/L (9-52); AST/SGOT 42 U/L (14-36); BLOOD UREA NITROGEN 15 mg/dL (7-17); CALCIUM 7.9 mg/dl (8.6-10.4); GFR AFRICAN-AMERICAN > 60; GFR NON-AFRICAN AMERICAN > 60; HDL CHOLESTEROL 24 mg/dL (30-70)
[2017-09-08 22:17] LABS: VENOUS BLOOD GAS BASE EXCESS -10.2 mmol/L (0.0-2.0); VENOUS BLOOD GAS PCO2 33 mmHg (40-60); VENOUS BLOOD GAS PO2 33 mm/Hg (30-55); VENOUS BLOOD PH 7.28 (7.32-7.43)
[2017-09-08 23:00] LABS: ALB/GLOB RATIO 0.8 (1.0-2.1); ALT/SGPT 16 U/L (9-52); AST/SGOT 27 U/L (14-36); BLOOD UREA NITROGEN 13 mg/dL (7-17); CALCIUM 8.1 mg/dl (8.6-10.4); GFR AFRICAN-AMERICAN > 60; GFR NON-AFRICAN AMERICAN > 60
[2017-09-08] MEDS: Dextrose 5%/0.9% NS 1,000 ML IV SCH (23:21)
[2017-09-08] MEDS ORDERED: (Lantus) Insulin Glargine, Recombinant SC STA (23:42)
--- NOTE | 2017-09-09 04:44 | CON ---
DATE: ENDOCRINOLOGY CONSULT LOCATION: Room 15, ICU HISTORY OF PRESENT ILLNESS: This is a 57-year-old female with known history of type 2 diabetes on oral hypoglycemic therapy, presenting here with generalized body weakness and supervening nausea, dyspnea, and vomiting for almost 2 weeks, in diabetic ketoacidosis and dehydration and is being referred now for diabetic management. PAST MEDICAL HISTORY: As mentioned above, history of chronic schizoaffective disorder and schizophrenia. Currently on psychotropic medications. History of type 2 diabetes, on oral hypoglycemic therapy, taking Januvia 25 mg daily and metformin at 1 gm b.i.d., history of hypertension and dyslipidemia. FAMILY HISTORY: Positive for diabetes, hypertension. SOCIAL HISTORY: The patient has a supportive family. No know substance use. REVIEW OF SYSTEMS: As per the family, she was seemed to have increasing generalized body weakness with hypersomnolence and lethargy and episodic bouts of dizziness and lightheadedness. No chest pains or palpitations or PNDs. Her oral intake has been variable with nausea, dyspepsia, intractable vomiting episodes; also admits to marked polyuria, nocturia, and polydipsia. PHYSICAL EXAMINATION: GENERAL: Average built female in no apparent distress. VITAL SIGNS: Blood pressure of 150/90, pulse of 100 beats per minute and regular, temperature 98, respirations 20. Height 5 and 1.5 inches, weight is 142 pounds. HEENT: Head is normocephalic. Eyes anicteric with pink conjunctivae. Funduscopy not possible at this time. Ears, nose, and throat, otherwise, normal. NECK: Supple. Thyroid gland is normal size. No carotid bruits or cervical adenopathy. CARDIOPULMONARY: Some adynamic precordium. S1 and S2 is rapid and regular. LUNGS: Clear to auscultation. ABDOMEN: Flat, soft with positive bowel sounds. EXTREMITIES: No peripheral edema. Pulses are +2 bilaterally. LABORATORY DATA: Chemistry showed BUN of 20, sodium 132, potassium 5, chloride 95, CO2 of 6. Glucose is 576 and creatinine 1.3. TSH is 2.11. ASSESSMENT: This is a 57-year-old female with uncontrolled and decompensated type 2 insulin requiring diabetes presenting here with marked hyperglycemic accelerations, supervening diabetic ketoacidosis, and dehydration with previous hyponatremia. PLAN OF MANAGEMENT: We will concur with the present initiation of intensive insulin drip infusion and would recommend the algorithm 1 for DKA protocol as ordered. We will initiate vigorous IV hydration and increase the normal saline to 200 mL per hour as ordered. We will obtain serial chemistries and supplement accordingly as needed. We will await for his CO2 to at least to be above 18 to discontinue the insulin drip and switch her over to basal and bolus insulin drug combination to optimize metabolic control. We will follow. Kaley Gonzales MD
[2017-09-09 06:34] LABS: BASO % 0.3 % (0.0-2.0); EOS % 0.5 % (0.0-4.0); LYMPH # 0.5 K/uL (1.0-4.3); LYMPH % 10.3 % (20.0-40.0); MEAN CELL VOLUME 89.4 fL (81.0-99.0); MEAN CORPUSCULAR HGB CONC 34.7 g/dL (33.0-37.0); MEAN PLATELET VOLUME 8.4 fL (7.2-11.7); MONO # 0.4 K/uL (0.0-0.8); MONO % 8.8 % (0.0-10.0); NEUT % 80.1 % (50.0-75.0); RBC 3.18 Mil/uL (3.80-5.20); RED CELL DISTRIBUTION WIDTH 12.8 % (11.5-14.5)
[2017-09-09] MEDS: (Novolog) Insulin Aspart, Recombinant 100 u/ml 10 ml vial SC SCH ×8 (06:35→21:29)
[2017-09-09 06:36] LABS: HEMOGLOBIN 9.9 g/dL (11.0-16.0)
[2017-09-09 06:52] LABS: ALB/GLOB RATIO 0.8 (1.0-2.1); ALBUMIN 2.6 g/dL (3.5-5.0); ALT/SGPT 19 U/L (9-52); AST/SGOT 18 U/L (14-36); BLOOD UREA NITROGEN 15 mg/dL (7-17); GFR AFRICAN-AMERICAN > 60; GFR NON-AFRICAN AMERICAN 57
[2017-09-09] MEDS: Dextrose 5%/0.9% NS 1,000 ML IV SCH (08:00)
[2017-09-09] MEDS ORDERED: Sodium Chloride 0.9% 1,000 ML IV SCH (08:45)
[2017-09-09] MEDS: Enoxaparin 30 mg Syringe SC SCH (09:21)
[2017-09-09] MEDS: Divalproex 500 mg DR Tab PO SCH (09:21)
[2017-09-09] MEDS: Cefepime IV 1 gm in Dextrose 1 GM/50 ML BAG IVPB SCH ×2 (10:15→21:29)
[2017-09-09] MEDS: Sodium Chloride 0.9% 1,000 ML IV SCH ×3 (12:17→18:11)
[2017-09-09 14:38] LABS: ABG ALLEN TEST POS; ARTERIAL BLOOD GAS HCO3 16.4 mmol/L (21-28); ARTERIAL BLOOD GAS HEMOGLOBIN 9.7 g/dL (11.7-17.4); ARTERIAL BLOOD GAS PCO2 28 mm/Hg (35-45); ARTERIAL BLOOD GAS PH 7.31 (7.35-7.45); ARTERIAL BLOOD GAS PO2 91 mm/Hg (80-100)
--- NOTE | 2017-09-09 14:45 | PN ---
DATE: ENDO FOLLOWUP NOTE LOCATION: [facility] in ICU room 15. SUBJECTIVE: This is a 57-year-old female with recent uncontrolled type 2 insulin-requiring diabetes, presenting here with diabetic ketoacidosis and dehydration and is now being followed closely for metabolic management. Hyperglycemic levels persist as noted with glucose values today still quite elevated and glucose levels ranging from 417 to 436 and 448 mg/dL. LABORATORY DATA: Her latest chemistry showed a BUN of 15, sodium 135, potassium 4.1, chloride 109, CO2 is 12, glucose is 461, and creatinine is 1. ASSESSMENT AND PLAN: So at this time, we will modify once again her basal and bolus insulin regimen and increase the Lantus to 40 units subcu at bedtime daily to start tonight. We will also increase her NovoLog to 12 units subcu t.i.d. before meals to start at lunch time today as ordered. We will titrate incrementally as indicated to optimize metabolic control. We will also increase the IV hydration to 150 mL/hour with normal saline infusion as given. We will obtain serial chemistries and supplement accordingly as needed. We will follow with you. Kaley Gonzales MD
[2017-09-09 14:47] LABS: BLOOD UREA NITROGEN 14 mg/dL (7-17); CALCIUM 8.2 mg/dl (8.6-10.4); GFR AFRICAN-AMERICAN > 60; GFR NON-AFRICAN AMERICAN 51
[2017-09-09 15:06] LABS: BARBITURATES, UR NEGATIVE (NEGATIVE); BENZODIAZEPINES, UR NEGATIVE (NEGATIVE); OPIATES, UR NEGATIVE (NEGATIVE); PHENCYCLIDINE, UR NEGATIVE (NEGATIVE)
--- NOTE | 2017-09-09 15:55 | CP.PCM.PN ---
Subjective - Date & Time of Evaluation Date of Evaluation: 09/09/17 Time of Evaluation: 15:00 - Subjective Subjective: Hospitalist Progress Note Patient was seen and examined at 3:00 PM ICU BED #15 57 year old female who was admitted to the ICU on 09/08/17 for treatment of DKA. Her Anion Gap resolved on the night of 09/08/17. She was transitioned to SC Insulin and was started on a diabetic diet. However it was noted that today 09/09/17 her Anion Gap was 14, Bicarbonate was 12 , and Blood Glucose > 400. Therefore there was a possibility that she may have gotten back into DKA. Repeat ABG did indicate a pH of 7.31 but her Anion Gap was normal at 11. Therefore her current managment was continued with Lantus increased to 40 units starting tonight. Blood culture indicated preliminary that there were Gram Negative Rods present and considering her prior history of E. coli UTI, she was therefore started on Cefepime. Upon FULL ROS NO dysphagia/odynopahgia NO soreness in throat NO cough NO sinus/nasal congestion NO fever/chills NO muscle aches/pains NO joint pain NO chest pain/palpations NO SOB NO abdominal pain NO n/v/d/c NO burning pain with urination NO SPARROW NO lightheadedness/dizziness NO paresthesias Exam: General: AAOX3, NAD HEENT: NCA, EOMI, PERRLA, NO cervical/supraclavicular/submandibular lymphadenopathy, NO pharyngeal erythema/exudate, Nasal Turbinates are nonerythematous/nonedematous, Oral Mucosa is moist Cardio: NS1 and NS2, NO M/R/G Resp: CTA B/L, NO R/R/W GI: BSx4, Soft, NT, NO HSM, NO guarding/rebound tenderness Ext: Pulses are strong and equal, Capillary Refill is 2 seconds, NO edema Neuro: CN II through XII are grossly intact 1). DKA Resolved 2). Metabolic Acidosis with Anion Gap Anion gap has resolved Continue NS@150ml/hr, Insulin Sliding Scale, Lantus, and Aspart ACMeals Treat the Gram Negative Bacteremia 3). Leukocytosis Likely Secondary to Gram Negative Bacteremia Blood culture 09/08/17 shows Gram Negative Rods: F/U sensitivities Cefepime 1 gm IV Q12H F/U Urine Culture Chest X Ray shows NO acute disease 4). Uncontrolled DM 2 HgBA1C 13.8 Current regimen is Aspart 12 Units AC Meals and Lantus 40 Units SC HS Will likely need to convert the Lantus to something more affordable for patient such as Novolog (70/30) On ARB: Cozaar On Statin: Crestor TSH normal LDL 86 F/U Urine Microalbumin and Cr ratio Endocrine Dr. Param Thompson 5). Microhematuria F/U repeat UA and if still present then obtain U/S Renal/Bladder 6). Hx HTN Cozaar 100 mg PO 1x/day 7). Hx HLD Crestor 5 mg PO HS 8). Hx Schizophrenia/Questionable Depression Depakote 500 mg PO 1x/day Risperidone 1 mg PO HS Sertraline 100 mg PO HS 9). Prophylaxis Lovenox 30 mg SC 1x/day B/L SCDs Zofran 4 mg IV Q8H PRN N/V Protonix 40 mg IV 1x/day Florastor 250 mg PO 2x/day NS @150 ml/hr Yossi Moore D.O. Objective - Vital Signs/Intake and Output Vital Signs (last 24 hours): Temp Pulse Resp BP Pulse Ox 98.1 F 83 15 158/70 H 99 09/08/17 16:00 09/09/17 15:20 09/09/17 15:20 09/09/17 15:20 09/09/17 15:20 Intake and Output: 09/09/17 09/09/17 06:59 18:59 Intake Total 2017 1450 Output Total 1300 200 Balance 718 1250 - Medications Medications: Current Medications Aspirin (Aspirin Chewable) 81 mg PO DAILY [facility] Last Admin: 09/09/17 09:21 Dose: 81 mg Divalproex Sodium (Depakote Dr) 500 mg PO DAILY [facility] Last Admin: 09/09/17 09:21 Dose: 500 mg Enoxaparin Sodium (Lovenox) 30 mg SC DAILY [facility] Last Admin: 09/09/17 09:21 Dose: 30 mg Cefepime HCl (Maxipime Iv 1 Gm Premix) 1 gm in 50 mls @ 100 mls/hr IVPB Q12H [facility] PRN Reason: Protocol Last Admin: 09/09/17 10:15 Dose: 100 mls/hr Sodium Chloride (Sodium Chloride 0.9%) 1,000 mls @ 150 mls/hr IV .Q6H40M [facility] Last Admin: 09/09/17 12:17 Dose: 150 mls/hr Insulin Aspart (Novolog) 0 unit SC ACHS [facility] Last Admin: 09/09/17 12:16 Dose: 5 unit Insulin Aspart (Novolog) 12 unit SC AC [facility] Last Admin: 09/09/17 12:16 Dose: 12 unit Insulin Glargine (Lantus) 40 unit SC HS [facility] Losartan Potassium (Cozaar) 100 mg PO DAILY [facility] Last Admin: 09/09/17 09:21 Dose: 100 mg Ondansetron HCl (Zofran Inj) 4 mg IVP Q6 PRN PRN Reason: Nausea/Vomiting Pantoprazole Sodium (Protonix Inj) 40 mg IVP DAILY [facility] Last Admin: 09/09/17 09:21 Dose: 40 mg Risperidone (Risperdal Tab) 1 mg PO [facility] Last Admin: 09/08/17 21:19 Dose: 1 mg Rosuvastatin Calcium (Crestor) 5 mg PO [facility] Last Admin: 09/08/17 21:19 Dose: 5 mg Sertraline HCl (Zoloft) 100 [address] [facility] Last Admin: 09/08/17 21:19 Dose: 100 mg - Labs Labs: 09/09/17 06:23 09/09/17 14:27
[2017-09-09] MEDS: Saccharomyces Boulardi 250 mg Cap PO SCH (18:02)
[2017-09-09] MEDS ORDERED: (Lantus) Insulin Glargine, Recombinant SC SCH ×2 (22:00)
[2017-09-10] MEDS: Sodium Chloride 0.9% 1,000 ML IV SCH ×5 (01:09→21:15)
--- NOTE | 2017-09-10 02:25 | CARD ---
APPROVED REPORT EKG Measurement Heart [id number] <Conclusion> Sinus tachycardia Otherwise normal ECG
[2017-09-10 07:09] LABS: SQUAMOUS EPITHIAL 2 /hpf (0-5); URINE BACTERIA RARE (<OCC); URINE BILIRUBIN NEGATIVE (NEGATIVE); URINE BLOOD 1+ (NEGATIVE); URINE CLARITY Hazy (Clear); URINE COLOR Straw (YELLOW); URINE GLUCOSE (UA) 3+ mg/dL (Normal); URINE LEUKOCYTE ESTERASE 2+ Leu/uL (Negative); URINE PROTEIN NEGATIVE (NEGATIVE); URINE UROBILINOGEN NORMAL mg/dL (0.2-1.0)
[2017-09-10 07:15] LABS: BASO % 0.3 % (0.0-2.0); EOS # 0.1 K/uL (0.0-0.7); EOS % 1.3 % (0.0-4.0); HEMOGLOBIN 9.2 g/dL (11.0-16.0); LYMPH # 0.6 K/uL (1.0-4.3); LYMPH % 14.9 % (20.0-40.0); MEAN CORPUSCULAR HEMOGLOBIN 30.9 pg (27.0-31.0); MEAN CORPUSCULAR HGB CONC 35.5 g/dL (33.0-37.0); MEAN PLATELET VOLUME 7.9 fL (7.2-11.7); MONO # 0.4 K/uL (0.0-0.8); MONO % 9.5 % (0.0-10.0); NEUT # 2.9 K/uL (1.8-7.0); NRBC % 0.1 % (0.0-2.0); RBC 2.97 Mil/uL (3.80-5.20); RED CELL DISTRIBUTION WIDTH 12.6 % (11.5-14.5); WHITE BLOOD COUNT 3.9 K/uL (4.8-10.8)
[2017-09-10 07:31] LABS: ALB/GLOB RATIO 0.7 (1.0-2.1); ALBUMIN 2.4 g/dL (3.5-5.0); ALT/SGPT 14 U/L (9-52); AST/SGOT 27 U/L (14-36); BLOOD UREA NITROGEN 10 mg/dL (7-17); CALCIUM 8.2 mg/dl (8.6-10.4); GFR AFRICAN-AMERICAN > 60; GFR NON-AFRICAN AMERICAN > 60
[2017-09-10] MEDS: (Novolog) Insulin Aspart, Recombinant 100 u/ml 10 ml vial SC SCH ×3 (07:52→11:57)
--- NOTE | 2017-09-10 08:05 | CP.PCM.PN ---
<Rubia Rosen - Last Filed: 09/10/17 13:52> Subjective - Date & Time of Evaluation Date of Evaluation: 09/10/17 Time of Evaluation: 07:00 - Subjective Subjective: Medicine Progress Note: Patient was seen and examined at bedside in the AM. No acute events overnight. Patient denies nausea, vomiting, chest pain, shortness of breath, abdominal pain, diarrhea or constipation. Patient states her last bowel movement was in the morning. Patient states she has never had a colonoscopy. Objective - Vital Signs/Intake and Output Vital Signs (last 24 hours): Temp Pulse Resp BP Pulse Ox 97.9 F 98 H 18 123/69 98 09/09/17 21:01 09/09/17 20:44 09/09/17 21:01 09/09/17 21:01 09/09/17 21:01 Intake and Output: 09/10/17 09/10/17 06:59 18:59 Intake Total 2590 Output Total 600 Balance 1989 - Medications Medications: Current Medications Aspirin (Aspirin Chewable) 81 mg PO DAILY [facility] Last Admin: 09/09/17 09:21 Dose: 81 mg Divalproex Sodium (Depakote Dr) 500 mg PO DAILY [facility] Last Admin: 09/09/17 09:21 Dose: 500 mg Enoxaparin Sodium (Lovenox) 30 mg SC DAILY [facility] Last Admin: 09/09/17 09:21 Dose: 30 mg Cefepime HCl (Maxipime Iv 1 Gm Premix) 1 gm in 50 mls @ 100 mls/hr IVPB Q12H [facility] PRN Reason: Protocol Last Admin: 09/09/17 21:29 Dose: 100 mls/hr Sodium Chloride (Sodium Chloride 0.9%) 1,000 mls @ 150 mls/hr IV .Q6H40M [facility] Last Admin: 09/10/17 07:58 Dose: 150 mls/hr Insulin Aspart (Novolog) 0 unit SC ACHS [facility] Last Admin: 09/10/17 07:52 Dose: Not Given Insulin Aspart (Novolog) 12 unit SC AC [facility] Last Admin: 09/10/17 07:57 Dose: 12 unit Insulin Glargine (Lantus) 40 unit SC HS [facility] Last Admin: 09/09/17 21:30 Dose: 40 units Losartan Potassium (Cozaar) 100 mg PO DAILY [facility] Last Admin: 09/09/17 09:21 Dose: 100 mg Ondansetron HCl (Zofran Inj) 4 mg IVP Q6 PRN PRN Reason: Nausea/Vomiting Pantoprazole Sodium (Protonix Inj) 40 mg IVP DAILY [facility] Last Admin: 09/09/17 09:21 Dose: 40 mg Potassium Chloride (K-Dur 20 Meq Er Tab) 20 meq PO ONCE ONE Stop: 09/10/17 08:03 Risperidone (Risperdal Tab) 1 mg PO [facility] Last Admin: 09/09/17 21:29 Dose: 1 mg Rosuvastatin Calcium (Crestor) 5 mg PO [facility] Last Admin: 09/09/17 21:29 Dose: 5 mg Saccharomyces Boulardii (Florastor) 250 mg PO BID [facility] Last Admin: 09/09/17 18:02 Dose: 250 mg Sertraline HCl (Zoloft) 100 mg PO [facility] Last Admin: 09/09/17 21:29 Dose: 100 mg - Labs Labs: 09/10/17 07:10 09/10/17 07:10 - Constitutional Appears: No Acute Distress - Head Exam Head Exam: ATRAUMATIC, NORMAL INSPECTION - Eye Exam Eye Exam: EOMI, Normal appearance - ENT Exam ENT Exam: Mucous Membranes Moist - Respiratory Exam Respiratory Exam: Clear to Ausculation Bilateral, NORMAL BREATHING PATTERN - GI/Abdominal Exam GI & Abdominal Exam: Soft, Normal Bowel Sounds. absent: Tenderness - Rectal Exam Rectal Exam: Hemorrhoids (likely internal hemorrhoids felt), NORMAL INSPECTION. absent: Black Stool, Bloody Stool Additional comments: hemacolt negative - Extremities Exam Extremities Exam: Normal Inspection. absent: Pedal Edema, Tenderness - Neurological Exam Neurological Exam: Alert, Awake, Oriented x3 - Skin Skin Exam: Normal Color Assessment and Plan - Assessment and Plan (Free Text) Assessment: History of Uncontrolled Diabetes Type II - Endocrinology consult: Dr. Gonzales --> help appreciated - hA1c (03/25/17): 13.9 - Per patient she was only taking Metformin 500mg bid at home - Patient is a [facility] patient and from her last visit for Diabetes on 03/25/17 Dr. Paulino prescribed her Lantus 20 units BID however patient stated she does not take insulin at home either due to aversion to insulin or due to monetary means. - NPH 12 units at bedtime; Novolin 30units before breakfast; Novolin 20 units before dinner - f/u microalbumin urine/Creatinine ratio DKA with anion gap - resolved - Patient was admitted to ICU - Anion Gap 31 --> 7 - Glucose on admission 446 --> 576 - B-Hydroxybutyrate: 9.68 --> 3.17 - Chest Xray: No active pulmonary disease - EKG: NSR at 135bpm - UA: +glucose; ketones and blood Metabolic Acidosis - Secondary to DKA - Anion Gap 31 --> 7 - VBG: pH 7.08; HCO3 6.1 Leukocytosis - Possibly secondary to Inflammatory Reaction due to DKA vs. Infection - WBC 12.6 with Left shift - UA Negative - f/u blood culture (preliminary): Gram Negative Kristopher - Cefepime 1gm q12h (started 09/09/17) - urine culture: Negative Anemia - secondary to dilution vs. medication side effect (Risperidone) - Hemacolt: negative - Continue to Monitor - Discussed with patient the importance to have a colonoscopy completed as an outpatient Microhematuria - secondary to DKA - UA: blood 2+; RBC <1 - UA: 1+ History of HTN - Restarted Home Medications: * Losartan Potassium 100mg daily - TSH (09/08/17): 2.11 - ECHO (09/26/15): EF 58%; normal biventricular function; insignificant trace of mitral and aortic regurgitation; no pericardial effusion History of HLD - Home Medication: Simvastatin 10mg HS * Replaced in house with Crestor 5mg HS - Lipid Panel (03/25/17): Triglycerides 314; Total Cholesterol 192; LDL 106; HDL 45 - Lipid Panel (09/08/17): Triglycerides 186; Total Cholesterol 156; LDL 86; HDL 24 History of Schizophrenia/questionable depression - Restarted Home Medications: * Depakote DR 500mg daily * Risperidone 1mg HS * Sertraline 100mg HS - Valproic acid level: 11.2 Prophylaxis - Lovenox 30mg SC Daily (DVT risk of 1) - SCDs - Florastor 250mg po bid - GI prophylaxis not indicated - PT eval and treat Case discussed with Dr. Yossi Rosen PGY-1 <Yossi Moore - Last Filed: 09/10/17 17:49> Objective - Vital Signs/Intake and Output Vital Signs (last 24 hours): Temp Pulse Resp BP Pulse Ox 97.9 F 86 20 145/74 100 09/10/17 15:00 09/10/17 15:00 09/10/17 15:00 09/10/17 15:00 09/10/17 15:00 Intake and Output: 09/10/17 09/10/17 06:59 18:59 Intake Total 2590 1380 Output Total 600 Balance 1990 1380 - Medications Medications: Current Medications Aspirin (Aspirin Chewable) 81 mg PO DAILY [facility] Last Admin: 09/10/17 09:00 Dose: 81 mg Divalproex Sodium (Depakote Dr) 500 mg PO DAILY [facility] Last Admin: 09/10/17 09:00 Dose: 500 mg Enoxaparin Sodium (Lovenox) 30 mg SC DAILY [facility] Last Admin: 09/10/17 09:00 Dose: 30 mg Cefepime HCl (Maxipime Iv 1 Gm Premix) 1 gm in 50 mls @ 100 mls/hr IVPB Q12H [facility] PRN Reason: Protocol Last Admin: 09/10/17 09:08 Dose: 100 mls/hr Sodium Chloride (Sodium Chloride 0.9%) 1,000 mls @ 150 mls/hr IV .Q6H40M [facility] Last Admin: 09/10/17 15:14 Dose: 150 mls/hr Insulin Human Isoph/Insulin Regular (Novolin 70/30 (70/30 Units/Ml) 10 Ml) 30 units SC ACB [facility] Insulin Human Isoph/Insulin Regular (Novolin 70/30 (70/30 Units/Ml) 10 Ml) 20 units SC ACD [facility] Last Admin: 09/10/17 17:20 Dose: 20 units Insulin Human NPH (Novolin N) 12 unit SC HS [facility] Losartan Potassium (Cozaar) 100 mg PO DAILY [facility] Last Admin: 09/10/17 09:00 Dose: 100 mg Ondansetron HCl (Zofran Inj) 4 mg IVP Q6 PRN PRN Reason: Nausea/Vomiting Risperidone (Risperdal Tab) 1 mg PO HS [facility] Last Admin: 09/09/17 21:29 Dose: 1 mg Rosuvastatin Calcium (Crestor) 5 mg PO HS [facility] Last Admin: 09/09/17 21:29 Dose: 5 mg Saccharomyces Boulardii (Florastor) 250 mg PO BID [facility] Last Admin: 09/10/17 17:38 Dose: 250 mg Sertraline HCl (Zoloft) 100 mg PO HS [facility] Last Admin: 09/09/17 21:29 Dose: 100 mg - Labs Labs: 09/10/17 07:10 09/10/17 07:10 Attending/Attestation - Attestation I have personally seen and examined this patient.: Yes I have fully participated in the care of the patient.: Yes I have reviewed all pertinent clinical information, including history, physical exam and plan: Yes Notes (Text): 09/10/17 17:47 Patient was seen and examined with resident Dr. Ciara Rosen at 11:15 AM. Exam, assessment and plan were gone over with the resident. Patient will have to be educated on Insulin administration and measurement by Diabetic Nurse on Tuesday09/12/17 prior to discharge. Yossi Moore D.O.
[2017-09-10] MEDS ORDERED: Potassium Chloride 20 mEq ER Tab PO ONE (08:15)
[2017-09-10] MEDS: Saccharomyces Boulardi 250 mg Cap PO SCH ×2 (09:00→17:38)
[2017-09-10] MEDS: Divalproex 500 mg DR Tab PO SCH (09:00)
[2017-09-10] MEDS: Enoxaparin 30 mg Syringe SC SCH (09:00)
[2017-09-10] MEDS: Cefepime IV 1 gm in Dextrose 1 GM/50 ML BAG IVPB SCH ×2 (09:08→21:15)
[2017-09-10] MEDS ORDERED: (Novolog) Insulin Aspart, Recombinant 100 u/ml 10 ml vial SC SCH (11:30)
--- NOTE | 2017-09-10 14:11 | PN ---
DATE: 09/10/2017 SUBJECTIVE: This is a 57-year-old female with recent uncontrolled type 2 insulin-requiring diabetes, presenting here with diabetic ketoacidosis and dehydration and has since then improved clinically and metabolically as noted thereof. Her glucose levels today have ranged from 261 to 312 mg/dL. Her latest chemistries shows a BUN of 10, sodium 139, potassium 3.5, chloride 114, CO2 18, glucose 262, and creatinine 0.9. So at this time, we will modify once again her basal and bolus insulin regimen and increase Lantus to 40 units subcu at bedtime daily as ordered. We will increase the NovoLog to 14 units subcu t.i.d. before meals as ordered. We will continue the IV hydration with normal saline because of resolving diabetic ketoacidosis as noted. We will obtain serum chemistries and supplement accordingly as needed. We will follow with you. Kaley Gonzales MD
[2017-09-10] MEDS ORDERED: (Novolin 70/30) NPH/Regular 70/30 Units/ml 10 ml vial SC SCH (16:30)
[2017-09-10] MEDS ORDERED: (Novolin N) Insulin Human Isophane (NPH) 100 u/ml 10 ml vial SC SCH ×2 (22:00→22:09)
[2017-09-10] MEDS: (Novolin R) Insulin Human Regular 100 units/ml vial SC SCH (22:38)
[2017-09-11] MEDS: Sodium Chloride 0.9% 1,000 ML IV SCH ×3 (02:45→10:22)
[2017-09-11] MEDS ORDERED: (Novolin 70/30) NPH/Regular 70/30 Units/ml 10 ml vial SC SCH (07:30)
[2017-09-11] MEDS: (Novolin R) Insulin Human Regular 100 units/ml vial SC SCH ×4 (07:43→21:51)
--- NOTE | 2017-09-11 07:45 | CP.PCM.PN ---
<Rubia Rosen - Last Filed: 09/11/17 13:35> Subjective - Date & Time of Evaluation Date of Evaluation: 09/11/17 Time of Evaluation: 07:00 - Subjective Subjective: Medicine Progress Note: Patient was seen and examined at bedside in the AM. No acute events overnight. Patient denies nausea, vomiting, chest pain, shortness of breath, abdominal pain , diarrhea or constipation. Objective - Vital Signs/Intake and Output Vital Signs (last 24 hours): Temp Pulse Resp BP Pulse Ox 97.3 F L 87 18 146/74 99 09/11/17 00:47 09/11/17 00:47 09/11/17 00:47 09/11/17 00:47 09/11/17 00:47 Intake and Output: 09/11/17 09/11/17 06:59 18:59 Intake Total 1300 1400 Balance 1300 1400 - Medications Medications: Current Medications Aspirin (Aspirin Chewable) 81 mg PO DAILY [facility] Last Admin: 09/10/17 09:00 Dose: 81 mg Divalproex Sodium (Depakote Dr) 500 mg PO DAILY [facility] Last Admin: 09/10/17 09:00 Dose: 500 mg Enoxaparin Sodium (Lovenox) 30 mg SC DAILY [facility] Last Admin: 09/10/17 09:00 Dose: 30 mg Cefepime HCl (Maxipime Iv 1 Gm Premix) 1 gm in 50 mls @ 100 mls/hr IVPB Q12H [facility] PRN Reason: Protocol Last Admin: 09/10/17 21:15 Dose: 100 mls/hr Sodium Chloride (Sodium Chloride 0.9%) 1,000 mls @ 150 mls/hr IV .Q6H40M [facility] Last Admin: 09/11/17 02:45 Dose: 150 mls/hr Insulin Human Isoph/Insulin Regular (Novolin 70/30 (70/30 Units/Ml) 10 Ml) 44 units SC ACB [facility] Insulin Human Isoph/Insulin Regular (Novolin 70/30 (70/30 Units/Ml) 10 Ml) 34 units SC ACD [facility] Insulin Human NPH (Novolin N) 20 unit SC HS [facility] Insulin Human Regular (Novolin R) 0 unit SC ACHS [facility] Last Admin: 09/10/17 22:38 Dose: 6 unit Losartan Potassium (Cozaar) 100 mg PO DAILY [facility] Last Admin: 09/10/17 09:00 Dose: 100 mg Ondansetron HCl (Zofran Inj) 4 mg IVP Q6 PRN PRN Reason: Nausea/Vomiting Risperidone (Risperdal Tab) 1 mg PO [facility] Last Admin: 09/10/17 21:16 Dose: 1 mg Rosuvastatin Calcium (Crestor) 5 mg PO [facility] Last Admin: 09/10/17 21:16 Dose: 5 mg Saccharomyces Boulardii (Florastor) 250 mg PO BID [facility] Last Admin: 09/10/17 17:38 Dose: 250 mg Sertraline HCl (Zoloft) 100 mg PO [facility] Last Admin: 09/10/17 21:16 Dose: 100 mg - Labs Labs: 09/10/17 07:10 09/10/17 07:10 - Constitutional Appears: No Acute Distress - Head Exam Head Exam: ATRAUMATIC, NORMAL INSPECTION - Eye Exam Eye Exam: EOMI, Normal appearance - ENT Exam ENT Exam: Mucous Membranes Moist - Respiratory Exam Respiratory Exam: Clear to Ausculation Bilateral, NORMAL BREATHING PATTERN - Cardiovascular Exam Cardiovascular Exam: REGULAR RHYTHM, +S1, +S2 - GI/Abdominal Exam GI & Abdominal Exam: Soft, Normal Bowel Sounds. absent: Tenderness - Extremities Exam Extremities Exam: Normal Inspection - Neurological Exam Neurological Exam: Alert, Awake, Oriented x3 - Psychiatric Exam Psychiatric exam: Normal Affect, Normal Mood - Skin Skin Exam: Normal Color Assessment and Plan - Assessment and Plan (Free Text) Assessment: History of Uncontrolled Diabetes Type II - Endocrinology consult: Dr. Gonzales --> help appreciated - hA1c (03/25/17): 13.9 - Per patient she was only taking Metformin 500mg bid at home - Patient is a [facility] patient and from her last visit for Diabetes on 03/25/17 Dr. Paulino prescribed her Lantus 20 units BID however patient stated she does not take insulin at home either due to aversion to insulin or due to monetary means. - NPH 12 units at bedtime; Novolin 30units before breakfast; Novolin 20 units before dinner - f/u microalbumin urine/Creatinine ratio DKA with anion gap - resolved - Patient was admitted to ICU - Anion Gap 31 --> 7 - Glucose on admission 446 --> 576 - B-Hydroxybutyrate: 9.68 --> 3.17 - Chest Xray: No active pulmonary disease - EKG: NSR at 135bpm - UA: +glucose; ketones and blood Metabolic Acidosis - Secondary to DKA - Anion Gap 31 --> 7 - VBG: pH 7.08; HCO3 6.1 Leukocytosis - Possibly secondary to Inflammatory Reaction due to DKA vs. Infection - WBC 12.6 with Left shift - UA Negative - urine culture: Negative - blood culture: E. Coli - Cefepime 1gm q12h (started 09/09/17) - repeat blood culture 09/12/17 if negative continue antibiotic for 7 more days Anemia - secondary to dilution vs. medication side effect (Risperidone) - Hemacolt: negative - Continue to Monitor - Discussed with patient the importance to have a colonoscopy completed as an outpatient Microhematuria - secondary to DKA - UA: blood 2+; RBC <1 - UA: 1+ History of HTN - Restarted Home Medications: * Losartan Potassium 100mg daily - TSH (09/08/17): 2.11 - ECHO (09/26/15): EF 58%; normal biventricular function; insignificant trace of mitral and aortic regurgitation; no pericardial effusion History of HLD - Home Medication: Simvastatin 10mg HS * Replaced in house with Crestor 5mg HS - Lipid Panel (03/25/17): Triglycerides 314; Total Cholesterol 192; LDL 106; HDL 45 - Lipid Panel (09/08/17): Triglycerides 186; Total Cholesterol 156; LDL 86; HDL 24 History of Schizophrenia/questionable depression - Restarted Home Medications: * Depakote DR 500mg daily * Risperidone 1mg HS * Sertraline 100mg HS - Valproic acid level: 11.2 Prophylaxis - Lovenox 30mg SC Daily (DVT risk of 1) - SCDs - Florastor 250mg po bid - GI prophylaxis not indicated - PT eval and treat Disposition: Possible discharge home tomorrow after patient meets with hospital educator due to patient's noncompliance. Case discussed with Dr. Yossi Rosen PGY-1 <Yossi Moore - Last Filed: 09/11/17 14:39> Objective - Vital Signs/Intake and Output Vital Signs (last 24 hours): Temp Pulse Resp BP Pulse Ox 98.3 F 93 H 20 147/78 97 09/11/17 08:13 09/11/17 08:13 09/11/17 08:13 09/11/17 08:13 09/11/17 08:13 Intake and Output: 09/11/17 09/11/17 06:59 18:59 Intake Total 1300 2450 Balance 1300 2450 - Medications Medications: Current Medications Aspirin (Aspirin Chewable) 81 mg PO DAILY [facility] Last Admin: 09/11/17 10:12 Dose: 81 mg Divalproex Sodium (Depakote Dr) 500 mg PO DAILY [facility] Last Admin: 09/11/17 10:12 Dose: 500 mg Enoxaparin Sodium (Lovenox) 30 mg SC DAILY [facility] Last Admin: 09/11/17 10:12 Dose: 30 mg Cefepime HCl (Maxipime Iv 1 Gm Premix) 1 gm in 50 mls @ 100 mls/hr IVPB Q12H [facility] PRN Reason: Protocol Last Admin: 09/11/17 10:12 Dose: 100 mls/hr Insulin Human Isoph/Insulin Regular (Novolin 70/30 (70/30 Units/Ml) 10 Ml) 44 units SC ACB [facility] Last Admin: 09/11/17 07:49 Dose: 44 units Insulin Human Isoph/Insulin Regular (Novolin 70/30 (70/30 Units/Ml) 10 Ml) 34 units SC ACD [facility] Insulin Human NPH (Novolin N) 20 unit SC HS [facility] Insulin Human Regular (Novolin R) 0 unit SC ACHS [facility] Last Admin: 09/11/17 11:45 Dose: Not Given Losartan Potassium (Cozaar) 100 mg PO DAILY [facility] Last Admin: 09/11/17 10:23 Dose: 100 mg Ondansetron HCl (Zofran Inj) 4 mg IVP Q6 PRN PRN Reason: Nausea/Vomiting Risperidone (Risperdal Tab) 1 mg PO HS [facility] Last Admin: 09/10/17 21:16 Dose: 1 mg Rosuvastatin Calcium (Crestor) 5 mg PO HS [facility] Last Admin: 09/10/17 21:16 Dose: 5 mg Saccharomyces Boulardii (Florastor) 250 mg PO BID [facility] Last Admin: 09/11/17 10:12 Dose: 250 mg Sertraline HCl (Zoloft) 100 mg PO HS [facility] Last Admin: 09/10/17 21:16 Dose: 100 mg - Labs Labs: 09/11/17 07:56 06/03/18 07:56 Attending/Attestation - Attestation I have personally seen and examined this patient.: Yes I have fully participated in the care of the patient.: Yes I have reviewed all pertinent clinical information, including history, physical exam and plan: Yes Notes (Text): 09/11/17 14:30 Patient was seen and examined with resident Dr. Param Rosen. Exam, assessment and plan were gone over with Dr. Rosen. Please also note that Assessment and Plan should also include the following: -E. coli Bactermia As per Blood Culture performed on 09/08/17 Cefepime 1 gm IV Q12H (09/09/17) Repeat Blood Culture ordered for 09/11/17 Plan would be to make sure of the following before discharging patient: 1). Repeat Blood Culture 09/11/17 is negative 2). Diabetic Nurse has seen patient and re-educated (she has already gone through this on prior admission but never got the insulin for home use) the patient on proper insulin use and blood glucose measurement. Yossi Moore D.O. 09/11/17 14:38
[2017-09-11] MEDS: (Novolin 70/30) NPH/Regular 70/30 Units/ml 10 ml vial SC SCH ×2 (07:49→17:44)
[2017-09-11 08:09] LABS: BASO % 0.5 % (0.0-2.0); EOS # 0.1 K/uL (0.0-0.7); EOS % 1.6 % (0.0-4.0); HEMOGLOBIN 10.4 g/dL (11.0-16.0); LYMPH # 0.8 K/uL (1.0-4.3); LYMPH % 17.4 % (20.0-40.0); MEAN CELL VOLUME 87.5 fL (81.0-99.0); MEAN CORPUSCULAR HEMOGLOBIN 31.3 pg (27.0-31.0); MEAN CORPUSCULAR HGB CONC 35.8 g/dL (33.0-37.0); MEAN PLATELET VOLUME 8.5 fL (7.2-11.7); MONO # 0.3 K/uL (0.0-0.8); MONO % 7.5 % (0.0-10.0); NEUT # 3.3 K/uL (1.8-7.0); NRBC % 0.1 % (0.0-2.0); RBC 3.31 Mil/uL (3.80-5.20); RED CELL DISTRIBUTION WIDTH 13.1 % (11.5-14.5); WHITE BLOOD COUNT 4.6 K/uL (4.8-10.8)
[2017-09-11 08:14] VITALS: RESP 20
[2017-09-11 08:40] LABS: ALB/GLOB RATIO 0.8 (1.0-2.1); ALBUMIN 2.8 g/dL (3.5-5.0); ALT/SGPT 28 U/L (9-52); AST/SGOT 58 U/L (14-36); BLOOD UREA NITROGEN 8 mg/dL (7-17); CALCIUM 8.7 mg/dl (8.6-10.4); GFR AFRICAN-AMERICAN > 60; GFR NON-AFRICAN AMERICAN > 60
[2017-09-11] MEDS: Cefepime IV 1 gm in Dextrose 1 GM/50 ML BAG IVPB SCH ×2 (10:12→22:11)
[2017-09-11] MEDS: Enoxaparin 30 mg Syringe SC SCH (10:12)
[2017-09-11] MEDS: Saccharomyces Boulardi 250 mg Cap PO SCH ×2 (10:12→17:43)
[2017-09-11] MEDS: Divalproex 500 mg DR Tab PO SCH (10:12)
--- NOTE | 2017-09-11 15:41 | PN ---
DATE: ENDO FOLLOWUP NOTE LOCATION: In room 371. SUBJECTIVE: This is a 57-year-old female with uncontrolled and decompensated type 2 insulin-requiring diabetes, now being followed closely for metabolic management. Her glucose levels have improved overnight and the glucose values have ranged from 157 to 201 mg/dL. It was still 412 to 429 at bedtime last night. LABORATORY DATA: Her chemistry showed a BUN of 8, sodium 144, potassium 3.6, chloride 114, CO2 is 20, glucose 143, and creatinine is 0.8. ASSESSMENT AND PLAN: So at this time, we will continue the same basal and premixed insulin regimen to allow for dose equilibration and keep her on the NPH given as 20 units at bedtime as ordered. We will continue the Novolin 70/30 given as 44 units before breakfast and 34 units before dinner as given. We will obtain serial chemistries and supplement accordingly as needed. We will also sign off from the diabetic care and we will continue the same regimen as ordered. Kaley Gonzales MD
[2017-09-12 07:22] LABS: BASO % 0.4 % (0.0-2.0); EOS # 0.1 K/uL (0.0-0.7); EOS % 1.6 % (0.0-4.0); HEMOGLOBIN 9.2 g/dL (11.0-16.0); LYMPH # 0.7 K/uL (1.0-4.3); LYMPH % 16.3 % (20.0-40.0); MEAN CELL VOLUME 87.1 fL (81.0-99.0); MEAN CORPUSCULAR HEMOGLOBIN 30.7 pg (27.0-31.0); MEAN CORPUSCULAR HGB CONC 35.3 g/dL (33.0-37.0); MEAN PLATELET VOLUME 8.3 fL (7.2-11.7); MONO # 0.3 K/uL (0.0-0.8); NEUT # 3.3 K/uL (1.8-7.0); NEUT % 74.7 % (50.0-75.0); RED CELL DISTRIBUTION WIDTH 12.9 % (11.5-14.5); WHITE BLOOD COUNT 4.4 K/uL (4.8-10.8)
[2017-09-12] MEDS: (Novolin R) Insulin Human Regular 100 units/ml vial SC SCH ×4 (07:41→21:13)
[2017-09-12 07:46] LABS: ALB/GLOB RATIO 0.7 (1.0-2.1); ALBUMIN 2.6 g/dL (3.5-5.0); ALT/SGPT 40 U/L (9-52); AST/SGOT 49 U/L (14-36); BLOOD UREA NITROGEN 5 mg/dL (7-17); CALCIUM 8.6 mg/dl (8.6-10.4); GFR AFRICAN-AMERICAN > 60; GFR NON-AFRICAN AMERICAN > 60
[2017-09-12] MEDS: (Novolin 70/30) NPH/Regular 70/30 Units/ml 10 ml vial SC SCH ×3 (08:11→16:58)
[2017-09-12] MEDS ORDERED: (Novolin N) Insulin Human Isophane (NPH) 100 u/ml 10 ml vial SC SCH (08:21)
--- NOTE | 2017-09-12 08:24 | CP.PCM.DIS ---
Provider - Provider Date of Admission: 09/08/17 12:28 Attending physician: Yossi Moore MD Hospital Course - Lab Results Lab Results: Micro Results 09/08/17 16:15 Blood-Venous Blood Culture - Preliminary NO GROWTH AFTER 3 DAYS 09/10/17 06:32 Naris MRSA Culture - Final MRSA NOT DETECTED 09/08/17 16:45 Blood-Venous Blood Culture - Final Escherichia Coli 09/08/17 16:45 Blood-Venous Gram Stain - Final 09/09/17 14:44 Urine,Clean Catch Urine Culture - Final No Growth (<1,000 CFU/ML) 09/08/17 14:54 Naris MRSA Culture (Admit) - Final MRSA NOT DETECTED Most Recent Lab Values WBC 4.4 K/uL (4.8-10.8) L 09/12/17 07:12 RBC 3.00 Mil/uL (3.80-5.20) L 09/12/17 07:12 Hgb 9.2 g/dL (11.0-16.0) L 09/12/17 07:12 Hct 26.1 % (34.0-47.0) L 09/12/17 07:12 MCV 87.1 fL (81.0-99.0) 09/12/17 07:12 MCH 30.7 pg (27.0-31.0) 09/12/17 07:12 MCHC 35.3 g/dL (33.0-37.0) 09/12/17 07:12 RDW 12.9 % (11.5-14.5) 09/12/17 07:12 Plt Count 194 K/uL (130-400) 09/12/17 07:12 MPV 8.3 fL (7.2-11.7) 09/12/17 07:12 Neut % (Auto) 74.7 % (50.0-75.0) 09/12/17 07:12 Lymph % (Auto) 16.3 % (20.0-40.0) L 09/12/17 07:12 Weston % (Auto) 7.0 % (0.0-10.0) 09/12/17 07:12 Eos % (Auto) 1.6 % (0.0-4.0) 09/12/17 07:12 Baso % (Auto) 0.4 % (0.0-2.0) 09/12/17 07:12 Neut # (Auto) 3.3 K/uL (1.8-7.0) 09/12/17 07:12 Lymph # (Auto) 0.7 K/uL (1.0-4.3) L 09/12/17 07:12 Weston # (Auto) 0.3 K/uL (0.0-0.8) 09/12/17 07:12 Eos # (Auto) 0.1 K/uL (0.0-0.7) 09/12/17 07:12 Baso # (Auto) 0.0 K/uL (0.0-0.2) 09/12/17 07:12 Neutrophils % (Manual) 86 % (50-75) H 09/08/17 11:37 Band Neutrophils % 2 % (0-2) 09/08/17 11:37 Lymphocytes % (Manual) 9 % (20-40) L 09/08/17 11:37 Monocytes % (Manual) 3 % (0-10) 09/08/17 11:37 Platelet Estimate Normal (NORMAL) 09/08/17 11:37 Puncture Site Rr 09/09/17 14:34 pCO2 28 mm/Hg (35-45) L 09/09/17 14:34 pO2 91 mm/Hg (80-100) 09/09/17 14:34 HCO3 16.4 mmol/L (21-28) L 09/09/17 14:34 ABG pH 7.31 (7.35-7.45) L 09/09/17 14:34 ABG Total CO2 15.0 mmol/L (22-28) L 09/09/17 14:34 ABG O2 Saturation 99.0 % (95-98) H 09/09/17 14:34 ABG Base Excess -10.9 mmol/L (-2.0-3.0) L 09/09/17 14:34 ABG Hemoglobin 9.7 g/dL (11.7-17.4) L 09/09/17 14:34 ABG Carboxyhemoglobin 2.0 % (0.5-1.5) H 09/09/17 14:34 POC ABG HHb (Measured) 1.0 % (0.0-5.0) 09/09/17 14:34 ABG Methemoglobin 1.5 % (0.0-3.0) 09/09/17 14:34 Fredi Test Pos 09/09/17 14:34 VBG pH 7.28 (7.32-7.43) L 09/08/17 22:14 VBG pCO2 33 mmHg (40-60) L 09/08/17 22:14 VBG HCO3 15.8 mmol/L 09/08/17 22:14 VBG Total CO2 16.5 mmol/L (22-28) L 09/08/17 22:14 VBG O2 Sat (Calc) 70.3 % (40-65) H 09/08/17 22:14 VBG Base Excess -10.2 mmol/L (0.0-2.0) L 09/08/17 22:14 VBG Potassium 3.5 mmol/L (3.6-5.2) L 09/08/17 22:14 A-a O2 Difference 24.0 mm/Hg 09/09/17 14:34 Respiratory Index 0.3 09/09/17 14:34 Hgb O2 Saturation 95.5 % (95.0-98.0) 09/09/17 14:34 Sodium 138.0 mmol/l (132-148) 09/08/17 22:14 Chloride 111.0 mmol/L (98-107) H 09/08/17 22:14 Glucose 199 mg/dl (65-105) H 09/08/17 22:14 Lactate 1.3 mmol/L (0.7-2.1) 09/08/17 22:14 FiO2 21.0 % 09/09/17 14:34 Crit Value Called To md Ron 09/08/17 11:39 Crit Value Called By Rivas dasilva rrt 09/08/17 11:39 Crit Value Read Back Y 09/08/17 11:39 Blood Gas Notified Time 1150 09/08/17 11:39 Sodium 144 mmol/L (132-148) 09/12/17 07:12 Potassium 3.1 mmol/L (3.6-5.2) L 09/12/17 07:12 Chloride 112 mmol/L (98-107) H 09/12/17 07:12 Carbon Dioxide 25 mmol/L (22-30) 09/12/17 07:12 Anion Gap 10 (10-20) 09/12/17 07:12 BUN 5 mg/dL (7-17) L 09/12/17 07:12 Creatinine 0.7 mg/dL (0.7-1.2) 09/12/17 07:12 Est GFR ( Amer) > 60 09/12/17 07:12 Est GFR (Non-Af Amer) > 60 09/12/17 07:12 POC Glucose (mg/dL) 74 mg/dL (65-110) 09/12/17 07:10 Random Glucose 79 mg/dL (65-105) 09/12/17 07:12 Hemoglobin A1c 13.8 % (4.2-6.5) H 09/08/17 16:23 Calcium 8.6 mg/dl (8.6-10.4) 09/12/17 07:12 Phosphorus 2.2 mg/dL (2.5-4.5) L 09/12/17 07:12 Magnesium 1.9 mg/dL (1.6-2.3) 09/12/17 07:12 Total Bilirubin 0.3 mg/dL (0.2-1.3) 09/12/17 07:12 AST 49 U/L (14-36) H 09/12/17 07:12 ALT 40 U/L (9-52) 09/12/17 07:12 Alkaline Phosphatase 224 U/L (38-126) H 09/12/17 07:12 Troponin I < 0.0120 ng/mL (0.00-0.120) 09/08/17 16:23 Total Protein 6.2 g/dL (6.3-8.3) L 09/12/17 07:12 Albumin 2.6 g/dL (3.5-5.0) L 09/12/17 07:12 Globulin 3.6 gm/dL (2.2-3.9) 09/12/17 07:12 Albumin/Globulin Ratio 0.7 (1.0-2.1) L 09/12/17 07:12 Triglycerides 186 mg/dL (0-149) H D 09/08/17 16:23 Cholesterol 156 mg/dL (0-199) 09/08/17 16:23 LDL Cholesterol Direct 86 mg/dL (0-129) 09/08/17 16:23 HDL Cholesterol 24 mg/dL (30-70) L 09/08/17 16:23 TSH 3rd Generation 2.11 mIU/L (0.46-4.68) 09/08/17 11:37 Venous Blood Potassium 3.5 mmol/L (3.6-5.2) L 09/08/17 22:14 Urine Color Straw (YELLOW) 09/10/17 06:31 Urine Clarity Hazy (Clear) 09/10/17 06:31 Urine pH 6.0 (5.0-8.0) 09/10/17 06:31 Ur Specific [place] 1.009 (1.003-1.030) 09/10/17 06:31 Urine Protein Negative mg/dL (NEGATIVE) 09/10/17 06:31 Urine Glucose (UA) 3+ mg/dL (Normal) H 09/10/17 06:31 Urine Ketones Trace mg/dL (NEGATIVE) 09/10/17 06:31 Urine Blood 1+ (NEGATIVE) H 09/10/17 06:31 Urine Nitrate Negative (NEGATIVE) 09/10/17 06:31 Urine Bilirubin Negative (NEGATIVE) 09/10/17 06:31 Urine Urobilinogen Normal mg/dL (0.2-1.0) 09/10/17 06:31 Ur Leukocyte Esterase 2+ Juan Jose/uL (Negative) H 09/10/17 06:31 Urine WBC (Auto) 28 /hpf (0-5) H 09/10/17 06:31 Urine RBC (Auto) 3 /hpf (0-3) 09/10/17 06:31 Ur Squamous Epith Cells 2 /hpf (0-5) 09/10/17 06:31 Urine Bacteria Rare (<OCC) 09/10/17 06:31 Urine Opiates Screen Negative (NEGATIVE) 09/09/17 14:44 Urine Methadone Screen Negative (NEGATIVE) 09/09/17 14:44 Ur Barbiturates Screen Negative (NEGATIVE) 09/09/17 14:44 Valproic Acid 11.2 ug/mL (50.0-100.0) L 09/08/17 16:23 Ur Phencyclidine Scrn Negative (NEGATIVE) 09/09/17 14:44 Ur Amphetamines Screen Negative (NEGATIVE) 09/09/17 14:44 U Benzodiazepines Scrn Negative (NEGATIVE) 09/09/17 14:44 U Oth Cocaine Metabols Negative (NEGATIVE) 09/09/17 14:44 U Cannabinoids Screen Negative (NEGATIVE) 09/09/17 14:44 B-Hydroxybutyrate 3.17 mM (0.02-0.27) H 09/09/17 06:23 Discharge Exam - Head Exam Head Exam: ATRAUMATIC, NORMAL INSPECTION Discharge Plan - Follow Up Plan Condition: FAIR Disposition: HOME/ ROUTINE
[2017-09-12] MEDS ORDERED: Potassium Chloride 20 mEq ER Tab PO ONE ×3 (09:00→10:45)
[2017-09-12] MEDS: Divalproex 500 mg DR Tab PO SCH (09:54)
[2017-09-12] MEDS: Saccharomyces Boulardi 250 mg Cap PO SCH ×2 (09:54→16:59)
[2017-09-12] MEDS: Enoxaparin 30 mg Syringe SC SCH (09:55)
[2017-09-12] MEDS: Cefepime IV 1 gm in Dextrose 1 GM/50 ML BAG IVPB SCH ×2 (10:00→21:41)
--- NOTE | 2017-09-12 11:22 | CP.PCM.PN ---
<Rubia Rosen - Last Filed: 09/12/17 11:19> Subjective - Date & Time of Evaluation Date of Evaluation: 09/12/17 Time of Evaluation: 07:00 - Subjective Subjective: Medicine Progress Note: Patient was seen and examined at bedside in the AM. No acute events overnight. Patient denies nausea, vomiting, chest pain, shortness of breath, abdominal pain , diarrhea or constipation. Objective - Vital Signs/Intake and Output Vital Signs (last 24 hours): Temp Pulse Resp BP Pulse Ox 98 F 70 20 116/77 96 09/12/17 08:00 09/12/17 08:00 09/12/17 08:00 09/12/17 08:00 09/12/17 08:00 Intake and Output: 09/12/17 09/12/17 06:59 18:59 Intake Total 300 200 Balance 300 200 - Medications Medications: Current Medications Aspirin (Aspirin Chewable) 81 mg PO DAILY [facility] Last Admin: 09/12/17 09:54 Dose: 81 mg Divalproex Sodium (Depakote Dr) 500 mg PO DAILY [facility] Last Admin: 09/12/17 09:54 Dose: 500 mg Enoxaparin Sodium (Lovenox) 30 mg SC DAILY [facility] Last Admin: 09/12/17 09:55 Dose: 30 mg Cefepime HCl (Maxipime Iv 1 Gm Premix) 1 gm in 50 mls @ 100 mls/hr IVPB Q12H [facility] PRN Reason: Protocol Last Admin: 09/12/17 10:00 Dose: 100 mls/hr Insulin Human Isoph/Insulin Regular (Novolin 70/30 (70/30 Units/Ml) 10 Ml) 44 units SC ACB [facility] Last Admin: 09/12/17 08:51 Dose: 44 units Insulin Human Isoph/Insulin Regular (Novolin 70/30 (70/30 Units/Ml) 10 Ml) 34 units SC ACD [facility] Last Admin: 09/11/17 17:44 Dose: 34 units Insulin Human NPH (Novolin N) 12 unit SC HS JOSE LUIS Insulin Human Regular (Novolin R) 0 unit SC ACHS [facility] Last Admin: 09/12/17 07:41 Dose: Not Given Losartan Potassium (Cozaar) 100 mg PO DAILY [facility] Last Admin: 09/12/17 09:58 Dose: 100 mg Ondansetron HCl (Zofran Inj) 4 mg IVP Q6 PRN PRN Reason: Nausea/Vomiting Risperidone (Risperdal Tab) 1 mg PO [facility] Last Admin: 09/11/17 22:13 Dose: 1 mg Rosuvastatin Calcium (Crestor) 5 mg PO [facility] Last Admin: 09/11/17 22:13 Dose: 5 mg Saccharomyces Boulardii (Florastor) 250 mg PO BID [facility] Last Admin: 09/12/17 09:54 Dose: 250 mg Sertraline HCl (Zoloft) 100 mg PO [facility] Last Admin: 09/11/17 22:12 Dose: 100 mg - Labs Labs: 09/12/17 07:12 09/12/17 07:12 - Constitutional Appears: No Acute Distress - Head Exam Head Exam: ATRAUMATIC, NORMAL INSPECTION - Eye Exam Eye Exam: EOMI, Normal appearance, PERRL Pupil Exam: NORMAL ACCOMODATION - ENT Exam ENT Exam: Mucous Membranes Moist - Respiratory Exam Respiratory Exam: Clear to Ausculation Bilateral, NORMAL BREATHING PATTERN - Cardiovascular Exam Cardiovascular Exam: REGULAR RHYTHM, +S1, +S2 - GI/Abdominal Exam GI & Abdominal Exam: Soft, Normal Bowel Sounds. absent: Tenderness - Extremities Exam Extremities Exam: Normal Inspection - Neurological Exam Neurological Exam: Alert, Awake, Oriented x3 - Psychiatric Exam Psychiatric exam: Normal Affect, Normal Mood - Skin Skin Exam: Dry, Intact, Normal Color Assessment and Plan - Assessment and Plan (Free Text) Assessment: History of Uncontrolled Diabetes Type II - Endocrinology consult: Dr. Gonzales --> help appreciated - hA1c (03/25/17): 13.9 - Per patient she was only taking Metformin 500mg bid at home - Patient is a [facility] patient and from her last visit for Diabetes on 03/25/17 Dr. Paulino prescribed her Lantus 20 units BID however patient stated she does not take insulin at home either due to aversion to insulin or due to monetary means. - NPH 12 units at bedtime; Novolin 30units before breakfast; Novolin 20 units before dinner - f/u microalbumin urine/Creatinine ratio DKA with anion gap - resolved - Patient was admitted to ICU - Anion Gap 31 --> 7 - Glucose on admission 446 --> 576 - B-Hydroxybutyrate: 9.68 --> 3.17 - Chest Xray: No active pulmonary disease - EKG: NSR at 135bpm - UA: +glucose; ketones and blood Metabolic Acidosis - Secondary to DKA - Anion Gap 31 --> 7 - VBG: pH 7.08; HCO3 6.1 Leukocytosis - Possibly secondary to Inflammatory Reaction due to DKA vs. Infection - WBC 12.6 with Left shift - UA Negative - urine culture: Negative - blood culture: E. Coli - Cefepime 1gm q12h (started 09/09/17) - repeat blood culture 09/12/17 if negative continue antibiotic for 7 more days - f/u ECHO Anemia - secondary to dilution vs. medication side effect (Risperidone) - Hemacolt: negative - Continue to Monitor - Discussed with patient the importance to have a colonoscopy completed as an outpatient Microhematuria - secondary to DKA - UA: blood 2+; RBC <1 - UA: 1+ Hypokalemia - K: 3.1 - Repleated History of HTN - Restarted Home Medications: * Losartan Potassium 100mg daily - TSH (09/08/17): 2.11 - ECHO (09/26/15): EF 58%; normal biventricular function; insignificant trace of mitral and aortic regurgitation; no pericardial effusion History of HLD - Home Medication: Simvastatin 10mg HS * Replaced in house with Crestor 5mg HS - Lipid Panel (03/25/17): Triglycerides 314; Total Cholesterol 192; LDL 106; HDL 45 - Lipid Panel (09/08/17): Triglycerides 186; Total Cholesterol 156; LDL 86; HDL 24 History of Schizophrenia/questionable depression - Restarted Home Medications: * Depakote DR 500mg daily * Risperidone 1mg HS * Sertraline 100mg HS - Valproic acid level: 11.2 Prophylaxis - Lovenox 30mg SC Daily (DVT risk of 1) - SCDs - Florastor 250mg po bid - GI prophylaxis not indicated - PT eval and treat - Refined Syrup Operator/French Tutor Case discussed with Dr. Ian Rosen PGY-1 <Abril Sosa V - Last Filed: 09/12/17 12:17> Objective - Vital Signs/Intake and Output Vital Signs (last 24 hours): Temp Pulse Resp BP Pulse Ox 98 F 70 20 116/77 96 09/12/17 08:00 09/12/17 08:00 09/12/17 08:00 09/12/17 08:00 09/12/17 08:00 Intake and Output: 09/12/17 09/12/17 06:59 18:59 Intake Total 300 200 Balance 300 200 - Medications Medications: Current Medications Aspirin (Aspirin Chewable) 81 mg PO DAILY [facility] Last Admin: 09/12/17 09:54 Dose: 81 mg Divalproex Sodium (Depakote Dr) 500 mg PO DAILY [facility] Last Admin: 09/12/17 09:54 Dose: 500 mg Enoxaparin Sodium (Lovenox) 30 mg SC DAILY [facility] Last Admin: 09/12/17 09:55 Dose: 30 mg Cefepime HCl (Maxipime Iv 1 Gm Premix) 1 gm in 50 mls @ 100 mls/hr IVPB Q12H [facility] PRN Reason: Protocol Last Admin: 09/12/17 10:00 Dose: 100 mls/hr Insulin Human Isoph/Insulin Regular (Novolin 70/30 (70/30 Units/Ml) 10 Ml) 44 units SC ACB [facility] Last Admin: 09/12/17 08:51 Dose: 44 units Insulin Human Isoph/Insulin Regular (Novolin 70/30 (70/30 Units/Ml) 10 Ml) 34 units SC ACD [facility] Last Admin: 09/11/17 17:44 Dose: 34 units Insulin Human NPH (Novolin N) 12 unit SC HS [facility] Insulin Human Regular (Novolin R) 0 unit SC ACHS [facility] Last Admin: 09/12/17 07:41 Dose: Not Given Losartan Potassium (Cozaar) 100 mg PO DAILY [facility] Last Admin: 09/12/17 09:58 Dose: 100 mg Ondansetron HCl (Zofran Inj) 4 mg IVP Q6 PRN PRN Reason: Nausea/Vomiting Risperidone (Risperdal Tab) 1 mg PO HS [facility] Last Admin: 09/11/17 22:13 Dose: 1 mg Rosuvastatin Calcium (Crestor) 5 mg PO HS [facility] Last Admin: 09/11/17 22:13 Dose: 5 mg Saccharomyces Boulardii (Florastor) 250 mg PO BID [facility] Last Admin: 09/12/17 09:54 Dose: 250 mg Sertraline HCl (Zoloft) 100 mg PO HS [facility] Last Admin: 09/11/17 22:12 Dose: 100 mg - Labs Labs: 09/12/17 07:12 09/12/17 07:12 Attending/Attestation - Attestation I have personally seen and examined this patient.: Yes I have fully participated in the care of the patient.: Yes I have reviewed all pertinent clinical information, including history, physical exam and plan: Yes Notes (Text): Patient seen, examined and case discussed with day-time resident. Patient seen this morning. Patient reports she is feeling good. Patient denies headache, denies chest pain, denies shortness of breathe, denies cough, denies abdominal pain, denies nausea, denies vomitting, and denies dysuria. Patient instructed by Belarusian speaking resident the importance of taking her insulin in light of her diabetes. Resident has spoken with Dr. Gonzales, adjustments made to her insulin this morning. We are awaiting the repeat blood cultures to be negative for at least 48 hours. We ordering echocardiogram to r/o vegetations. Patient does not appear clinically symptomatic of endocarditis nor spiking fevers. Patient to meet with staff development educator, amplifier mechanic to reinforce diabetes education, and discharge planning for Tuesday pending echo and repeat blood cultures. Resident note amended and updated in my note below: Assessment/Plan 1) DKA-->Stabilized History of Uncontrolled Diabetes Type II-->chronic * patient was admitted to ICU, stablized and transferred out from the unit * B-Hydroxybutyrate: 9.68 --> 3.17 * Chest Xray: No active pulmonary disease * EKG: NSR at 135bpm * UA: +glucose; ketones and blood * Endocrinology consult: Dr. Gonzales --> help appreciated * hA1c (09/08/17): 13.8 * Insulin regiment: * Increased to Novolin 70/30 44 units subqACB * Novolin 70/30 34 units ACD * Decreased to Novolin N 12 unit sub HS * Patient is a [facility] patient and from her last visit for Diabetes on 03/25/[address]ident PGY-2 Dr. Paulino prescribed her Lantus 20 units BID however patient stated she does not take insulin at home either due to aversion to insulin or due to monetary means. * Aspirin 81mg PO daily * Cozaar 100mg PO daily * Crestor 5mg POqHS 2) E. Coli Bacteremia Leukocytosis * Possibly secondary to Inflammatory Reaction due to DKA vs. Infection * On admission WBC 12.6 with Left shift-->normalized * UA Negative * Urine culture (09/09/17): Negative * Blood culture (09/08/17: E. Coli (one out for 2 bottles) * Blood culture (09/11/17): pending * c/w Cefepime 1gm q12h (started 09/09/17) * f/u ECHO 3) Anemia * secondary to dilution vs. medication side effect (Risperidone) * Hemacolt: negative * Continue to Monitor * Discussed with patient the importance to have a colonoscopy completed as an outpatient * Will order for reticulocyte count, iron studies, ferritin, b12, folate 4) Hypokalemia * Monitor and replete * insulin adjusted today 5) Hypertension * Losartan 100mg PO daily * TSH (09/08/17): 2.11 * ECHO (09/26/15): EF 58%; normal biventricular function; insignificant trace of mitral and aortic regurgitation; no pericardial effusion * repeat echocardiogram ordered in light of bacteremia 6) Lipid Disorder * Home Medication: Simvastatin 10mg HS (not available on hospital formulary switched to Crestor 5mg POqHS * Lipid Panel (03/25/17): Triglycerides 314; Total Cholesterol 192; LDL 106; HDL 45 * Lipid Panel (09/08/17): Triglycerides 186; Total Cholesterol 156; LDL 86; HDL 24 7) History of Schizophrenia/questionable depression * Restarted Home Medications: * Depakote DR 500mg daily * Risperidone 1mg HS * Sertraline 100mg HS * Valproic acid level: 11.2 8) Prophylaxis * Lovenox 30mg SC Daily (DVT risk of 1) * SCDs * Florastor 250mg po bid * GI prophylaxis not indicated * PT eval and treat * Refined Syrup Operator/French Tutor Disposition: pending repeat blood cultures from 09/11/17 to be negative for 48 hours; pending repeat echocardiogram
[2017-09-12 14:21] LABS: IRON 18 ug/dL (37-170)
[2017-09-12 14:31] LABS: % IRON SATURATION 8 (20-55); TOTAL IRON BINDING CAPACITY 219 ug/dL (250-450)
--- NOTE | 2017-09-12 22:11 | CARD ---
APPROVED REPORT EXAM: Two-dimensional and M-mode echocardiogram with Doppler and color Doppler. Other Information Quality : [employer] : INDICATION Infection:Rule out subacute bacterial endocarditis 2D DIMENSIONS IVSd1.3 (0.7-1.1cm)LVDd3.8 (3.9-5.9cm) PWd1.2 (0.7-1.1cm)LVDs2.6 (2.5-4.0cm) FS (%) 32.5 %LVEF (%)61.5 (>50%) M-Mode DIMENSIONS Left Atrium (MM)3.28 (2.5-4.0cm)Aortic Root2.86 (2.2-3.7cm) Aortic Cusp Exc.1.42 (1.5-2.0cm) Mitral Valve MV E Nhtkcaax70.9cm/sMV A Qjqwiikf450.3cm/sE/A ratio0.8 TDI E/Lateral E'0.0E/Medial E'0.0 Tricuspid Valve TR Peak [id number]/sTR Peak [id number] LEFT VENTRICLE The left ventricle is normal size. There is mild concentric left ventricular hypertrophy. Left ventricle systolic function is normal. The Ejection Fraction is 60-65%. There is normal LV segmental wall motion. Transmitral Doppler flow pattern is Grade I-abnormal relaxation pattern. There is no ventricular septal defect visualized. RIGHT VENTRICLE The right ventricle is normal size. The right ventricular systolic function is normal. ATRIA The left atrium is mildly dilated. The right atrium size is normal. AORTIC VALVE The aortic valve is mildly thickened. The aortic valve is tri-cuspid. There is trace aortic regurgitation. There is no aortic valvular stenosis. Cannot exclude aortic valvular vegetation. MITRAL VALVE The mitral valve leaflets are thickened. There is no evidence of mitral valve prolapse. There is no mitral valve regurgitation noted. TRICUSPID VALVE The tricuspid valve is not well visualized. There is trace tricuspid regurgitation. There is no pulmonary hypertension. PULMONIC VALVE The pulmonic valve is not well visualized. GREAT VESSELS The aortic root is normal in size. The ascending aorta is normal in size. The IVC is dilated. PERICARDIAL EFFUSION There is no pericardial effusion. <Conclusion> There is mild concentric left ventricular hypertrophy. Left ventricle systolic function is normal. The Ejection Fraction is 60-65%. Transmitral Doppler flow pattern is Grade I-abnormal relaxation pattern. There is trace aortic regurgitation. Cannot exclude aortic valvular vegetation. NAVARRO is more specific.
[2017-09-13 07:37] LABS: BASO % 0.2 % (0.0-2.0); EOS # 0.1 K/uL (0.0-0.7); LYMPH # 0.7 K/uL (1.0-4.3); LYMPH % 13.4 % (20.0-40.0); MEAN CELL VOLUME 87.2 fL (81.0-99.0); MEAN CORPUSCULAR HGB CONC 35.5 g/dL (33.0-37.0); MEAN PLATELET VOLUME 7.9 fL (7.2-11.7); MONO # 0.5 K/uL (0.0-0.8); MONO % 9.3 % (0.0-10.0); NEUT # 4.1 K/uL (1.8-7.0); NEUT % 76.1 % (50.0-75.0); RBC 2.91 Mil/uL (3.80-5.20); RED CELL DISTRIBUTION WIDTH 12.7 % (11.5-14.5); WHITE BLOOD COUNT 5.5 K/uL (4.8-10.8)
[2017-09-13 07:52] LABS: ALB/GLOB RATIO 0.8 (1.0-2.1); ALBUMIN 2.7 g/dL (3.5-5.0); ALT/SGPT 31 U/L (9-52); AST/SGOT 42 U/L (14-36); BLOOD UREA NITROGEN 4 mg/dL (7-17); CALCIUM 8.6 mg/dl (8.6-10.4); GFR AFRICAN-AMERICAN > 60; GFR NON-AFRICAN AMERICAN > 60
[2017-09-13 08:03] VITALS: TEMP 98.5; O2SAT 96
[2017-09-13] MEDS: (Novolin R) Insulin Human Regular 100 units/ml vial SC SCH ×2 (08:41→11:39)
[2017-09-13] MEDS: (Novolin 70/30) NPH/Regular 70/30 Units/ml 10 ml vial SC SCH ×2 (08:42→11:59)
[2017-09-13 09:18] LABS: FOLATE 10.5 ng/mL
[2017-09-13] MEDS: Enoxaparin 30 mg Syringe SC SCH (09:32)
[2017-09-13] MEDS: Saccharomyces Boulardi 250 mg Cap PO SCH (09:33)
[2017-09-13] MEDS: Divalproex 500 mg DR Tab PO SCH (09:34)
[2017-09-13] MEDS: Cefepime IV 1 gm in Dextrose 1 GM/50 ML BAG IVPB SCH (09:34)
--- NOTE | 2017-09-13 11:40 | CP.PCM.DIS ---
<Sawyer Rosenssshaheed Smart - Last Filed: 09/13/17 13:21> Provider - Provider Date of Admission: 09/08/17 12:28 Attending physician: Abril Sosa DO Time Spent in preparation of Discharge (in minutes): 40 Hospital Course - Lab Results Lab Results: Micro Results 09/11/17 20:30 Blood-Venous Blood Culture - Preliminary NO GROWTH AFTER 24 HOURS 09/11/17 19:00 Blood-Venous Blood Culture - Preliminary NO GROWTH AFTER 24 HOURS 09/08/17 16:15 Blood-Venous Blood Culture - Preliminary NO GROWTH AFTER 4 DAYS 09/10/17 06:32 Naris MRSA Culture - Final MRSA NOT DETECTED 09/08/17 16:45 Blood-Venous Blood Culture - Final Escherichia Coli 09/08/17 16:45 Blood-Venous Gram Stain - Final 09/09/17 14:44 Urine,Clean Catch Urine Culture - Final No Growth (<1,000 CFU/ML) 09/08/17 14:54 Naris MRSA Culture (Admit) - Final MRSA NOT DETECTED Most Recent Lab Values WBC 5.5 K/uL (4.8-10.8) 09/13/17 07:20 RBC 2.91 Mil/uL (3.80-5.20) L 09/13/17 07:20 Hgb 9.0 g/dL (11.0-16.0) L 09/13/17 07:20 Hct 25.4 % (34.0-47.0) L 09/13/17 07:20 MCV 87.2 fL (81.0-99.0) 09/13/17 07:20 MCH 31.0 pg (27.0-31.0) 09/13/17 07:20 MCHC 35.5 g/dL (33.0-37.0) 09/13/17 07:20 RDW 12.7 % (11.5-14.5) 09/13/17 07:20 Plt Count 210 K/uL (130-400) 09/13/17 07:20 MPV 7.9 fL (7.2-11.7) 09/13/17 07:20 Neut % (Auto) 76.1 % (50.0-75.0) H 09/13/17 07:20 Lymph % (Auto) 13.4 % (20.0-40.0) L 09/13/17 07:20 [place] % (Auto) 9.3 % (0.0-10.0) 09/13/17 07:20 Eos % (Auto) 1.0 % (0.0-4.0) 09/13/17 07:20 Baso % (Auto) 0.2 % (0.0-2.0) 09/13/17 07:20 Neut # (Auto) 4.1 K/uL (1.8-7.0) 09/13/17 07:20 Lymph # (Auto) 0.7 K/uL (1.0-4.3) L 09/13/17 07:20 [place] # (Auto) 0.5 K/uL (0.0-0.8) 09/13/17 07:20 Eos # (Auto) 0.1 K/uL (0.0-0.7) 09/13/17 07:20 Baso # (Auto) 0.0 K/uL (0.0-0.2) 09/13/17 07:20 Neutrophils % (Manual) 86 % (50-75) H 09/08/17 11:37 Band Neutrophils % 2 % (0-2) 09/08/17 11:37 Lymphocytes % (Manual) 9 % (20-40) L 09/08/17 11:37 Monocytes % (Manual) 3 % (0-10) 09/08/17 11:37 Platelet Estimate Normal (NORMAL) 09/08/17 11:37 Retic Count 2.5 % (0.5-1.5) H 09/13/17 07:20 Puncture Site Rr 09/09/17 14:34 pCO2 28 mm/Hg (35-45) L 09/09/17 14:34 pO2 91 mm/Hg (80-100) 09/09/17 14:34 HCO3 16.4 mmol/L (21-28) L 09/09/17 14:34 ABG pH 7.31 (7.35-7.45) L 09/09/17 14:34 ABG Total CO2 15.0 mmol/L (22-28) L 09/09/17 14:34 ABG O2 Saturation 99.0 % (95-98) H 09/09/17 14:34 ABG Base Excess -10.9 mmol/L (-2.0-3.0) L 09/09/17 14:34 ABG Hemoglobin 9.7 g/dL (11.7-17.4) L 09/09/17 14:34 ABG Carboxyhemoglobin 2.0 % (0.5-1.5) H 09/09/17 14:34 POC ABG HHb (Measured) 1.0 % (0.0-5.0) 09/09/17 14:34 ABG Methemoglobin 1.5 % (0.0-3.0) 09/09/17 14:34 Fredi Test Pos 09/09/17 14:34 VBG pH 7.28 (7.32-7.43) L 09/08/17 22:14 VBG pCO2 33 mmHg (40-60) L 09/08/17 22:14 VBG HCO3 15.8 mmol/L 09/08/17 22:14 VBG Total CO2 16.5 mmol/L (22-28) L 09/08/17 22:14 VBG O2 Sat (Calc) 70.3 % (40-65) H 09/08/17 22:14 VBG Base Excess -10.2 mmol/L (0.0-2.0) L 09/08/17 22:14 VBG Potassium 3.5 mmol/L (3.6-5.2) L 09/08/17 22:14 A-a O2 Difference 24.0 mm/Hg 09/09/17 14:34 Respiratory Index 0.3 09/09/17 14:34 Hgb O2 Saturation 95.5 % (95.0-98.0) 09/09/17 14:34 Sodium 138.0 mmol/l (132-148) 09/08/17 22:14 Chloride 111.0 mmol/L (98-107) H 09/08/17 22:14 Glucose 199 mg/dl (65-105) H 09/08/17 22:14 Lactate 1.3 mmol/L (0.7-2.1) 09/08/17 22:14 FiO2 21.0 % 09/09/17 14:34 Crit Value Called To md Ron 09/08/17 11:39 Crit Value Called By Rivas dasilva rrt 09/08/17 11:39 Crit Value Read Back Y 09/08/17 11:39 Blood Gas Notified Time 1150 09/08/17 11:39 Sodium 142 mmol/L (132-148) 09/13/17 07:20 Potassium 3.8 mmol/L (3.6-5.2) 09/13/17 07:20 Chloride 105 mmol/L (98-107) 09/13/17 07:20 Carbon Dioxide 28 mmol/L (22-30) 09/13/17 07:20 Anion Gap 13 (10-20) 09/13/17 07:20 BUN 4 mg/dL (7-17) L 09/13/17 07:20 Creatinine 0.8 mg/dL (0.7-1.2) 09/13/17 07:20 Est GFR ( Amer) > 60 09/13/17 07:20 Est GFR (Non-Af Amer) > 60 09/13/17 07:20 POC Glucose (mg/dL) 249 mg/dL (65-110) H 09/13/17 11:13 Random Glucose 104 mg/dL (65-105) 09/13/17 07:20 Hemoglobin A1c 13.8 % (4.2-6.5) H 09/08/17 16:23 Calcium 8.6 mg/dl (8.6-10.4) 09/13/17 07:20 Phosphorus 2.3 mg/dL (2.5-4.5) L 09/13/17 07:20 Magnesium 2.0 mg/dL (1.6-2.3) 09/13/17 07:20 Iron 18 ug/dL (37-170) L 09/12/17 13:56 TIBC 219 ug/dL (250-450) L 09/12/17 13:56 % Saturation 8 (20-55) L 09/13/17 07:20 Ferritin 237.0 ng/mL 09/13/17 07:20 Total Bilirubin < 0.1 mg/dL (0.2-1.3) L 09/13/17 07:20 AST 42 U/L (14-36) H 09/13/17 07:20 ALT 31 U/L (9-52) 09/13/17 07:20 Alkaline Phosphatase 249 U/L (38-126) H 09/13/17 07:20 Troponin I < 0.0120 ng/mL (0.00-0.120) 09/08/17 16:23 Total Protein 6.1 g/dL (6.3-8.3) L 09/13/17 07:20 Albumin 2.7 g/dL (3.5-5.0) L 09/13/17 07:20 Globulin 3.5 gm/dL (2.2-3.9) 09/13/17 07:20 Albumin/Globulin Ratio 0.8 (1.0-2.1) L 09/13/17 07:20 Triglycerides 186 mg/dL (0-149) H D 09/08/17 16:23 Cholesterol 156 mg/dL (0-199) 09/08/17 16:23 LDL Cholesterol Direct 86 mg/dL (0-129) 09/08/17 16:23 HDL Cholesterol 24 mg/dL (30-70) L 09/08/17 16:23 Vitamin B12 > 1000 pg/mL (239-931) H 09/13/17 07:20 Folate 10.5 ng/mL 09/13/17 07:20 TSH 3rd Generation 2.11 mIU/L (0.46-4.68) 09/08/17 11:37 Venous Blood Potassium 3.5 mmol/L (3.6-5.2) L 09/08/17 22:14 Urine Color Straw (YELLOW) 09/10/17 06:31 Urine Clarity Hazy (Clear) 09/10/17 06:31 Urine pH 6.0 (5.0-8.0) 09/10/17 06:31 Ur Specific [place] 1.009 (1.003-1.030) 09/10/17 06:31 Urine Protein Negative mg/dL (NEGATIVE) 09/10/17 06:31 Urine Glucose (UA) 3+ mg/dL (Normal) H 09/10/17 06:31 Urine Ketones Trace mg/dL (NEGATIVE) 09/10/17 06:31 Urine Blood 1+ (NEGATIVE) H 09/10/17 06:31 Urine Nitrate Negative (NEGATIVE) 09/10/17 06:31 Urine Bilirubin Negative (NEGATIVE) 09/10/17 06:31 Urine Urobilinogen Normal mg/dL (0.2-1.0) 09/10/17 06:31 Ur Leukocyte Esterase 2+ Juan Jose/uL (Negative) H 09/10/17 06:31 Urine WBC (Auto) 28 /hpf (0-5) H 09/10/17 06:31 Urine RBC (Auto) 3 /hpf (0-3) 09/10/17 06:31 Ur Squamous Epith Cells 2 /hpf (0-5) 09/10/17 06:31 Urine Bacteria Rare (<OCC) 09/10/17 06:31 Urine Opiates Screen Negative (NEGATIVE) 09/09/17 14:44 Urine Methadone Screen Negative (NEGATIVE) 09/09/17 14:44 Ur Barbiturates Screen Negative (NEGATIVE) 09/09/17 14:44 Valproic Acid 11.2 ug/mL (50.0-100.0) L 09/08/17 16:23 Ur Phencyclidine Scrn Negative (NEGATIVE) 09/09/17 14:44 Ur Amphetamines Screen Negative (NEGATIVE) 09/09/17 14:44 U Benzodiazepines Scrn Negative (NEGATIVE) 09/09/17 14:44 U Oth Cocaine Metabols Negative (NEGATIVE) 09/09/17 14:44 U Cannabinoids Screen Negative (NEGATIVE) 09/09/17 14:44 B-Hydroxybutyrate 3.17 mM (0.02-0.27) H 09/09/17 06:23 - Hospital Course Hospital Course: CC: nausea/vomiting, dizziness, urinary frequency HPI: 57-year-old female with past medical history of DM, HTN, HLD, schizophrenia presents to the ED for evaluation of dizziness, cloudy vision, nausea and vomiting. She states she arrived to the ER via taxi. Patient states she has had a poor appetite for the past 15 days. She states she has been eating yogurt and fruits. She also reports urinary frequency and stress incontinence. She denies taking insulin and reports regularly taking Metformin 500mg BID. She reports improvement of nausea and blurry vision since arrival to hospital. She denies headache, chest pain, shortness of breath, palpitations, diarrhea, constipation or dysuria. She reports previous episodes of hyperglycemia which she had an ER visit in June 2017. She does not recall her last visit to her PMD. Per clinic chart her last visit to the [facility] for Diabetes was on 03/25/[address] Paulino who prescribed her Lantus 20 units BID however patient stated she does not take insulin at home. PMD: Dr. 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 Patient is a [facility] patient and from her last visit for Diabetes on 03/25/17 Dr. Paulino prescribed her Lantus 20 units BID however patient stated she does not take insulin at home either due to aversion to insulin. Patient was started on an Insulin drip in the ICU and then placed on a SC insulin once her anion gap closed. After her anion gap closed patient was transferred to the telemetry floor. Endocrinolgist Dr. Gonzales was consulted and she placed the patient on Novolin 70/30 44 units with breakfast; Novolin 34 units with dinner and NPH 12 units at bedtime. Patient was also found to have leukocytosis on admission secondary to DKA and blood cultures positive to E.Coli. Patient was started on September 09 on cefepime 1g q12h and discharged with Augmentin for 5 more days. During hospitalization patient was found to have anemia which was found to be secondary to iron deficiency anemia. Patient was started on Ferrous Sulfate daily. Patient was also found to have asymptomatic microhematuria which was secondary to DKA and improved after DKA resolved. Home medications for prior history of hypertension, hyperlipidemia, Schizophrenia and questionable depression were restarted Patient was seen and examined at bedside. No acute events overnight. Patient denies nausea, vomiting, chest pain, shortness of breath, abdominal pain, diarrhea or constipation. Patient left against medical advice. Patient was advised to stay in the hospital for another night for IV antibiotics due to positive blood cultures. Patient stated she wanted to go home and did not want to wait. Patient was given the following medications listed below. Pharmacy was able to provide the patient with free insulin medications. Patient has a scheduled Clinic Appointment in [place] on September 29 at 10:30am and patient is aware and stated she will go. Prescriptions for the following medications were given to the patient and written out in Greek. 1.) Insulin 70/30: 44 unidades con desayuno 2.) Depakote 500mg lora tableta con desyauno 3.) Losartan 100mg lora tableta con desayuno 4.) Augmentin 875/125mg lora tableta con desyauno y con millicent por 5 mandel 5.) Insulin 70/30: 34 unidades con vessel traffic officer 6.) Simvastatin 10mg lora tableta con vessel traffic officer 7.) Insulin NPH: 12 unidades la hora de acostarse 8.) Risperidone 1mg la hora de acostarse 9.) Sertraline 100mg la hora de acostarse This is a summary of the patient's hospital course. Refer to full EMR for a complete record. Discharge Exam - Head Exam Head Exam: ATRAUMATIC, NORMAL INSPECTION - Eye Exam Eye Exam: EOMI, Normal appearance, PERRL. absent: Scleral icterus Pupil Exam: NORMAL ACCOMODATION - ENT Exam ENT Exam: Mucous Membranes Moist - Respiratory Exam Respiratory Exam: Clear to PA & Lateral, NORMAL BREATHING PATTERN - Cardiovascular Exam Cardiovascular Exam: REGULAR RHYTHM, +S1, +S2 - Extremities Exam Extremities exam: normal capillary refill, normal inspection, pedal pulses present - Neurological Exam Neurological exam: Alert, Oriented x3 - Psychiatric Exam Psychiatric exam: Normal Affect, Normal Mood - Skin Skin Exam: Normal Color Discharge Plan - Discharge Medications Prescriptions: Amoxicillin/Clavulanate [Augmentin 875 MG-125 MG] 1 tab PO BID #10 tab RX: Aspirin [Aspirin Chewable] 81 mg PO DAILY #30 chew RX: Divalproex [Depakote DR] 500 mg PO DAILY #30 tcp RX: Ferrous Sulfate [Feosol] 325 mg PO DAILY #30 tab RX: Insulin Human (NPH)/Regular [Novolin 70/30 (70/30 units/ml) 10 ml] 44 units SC ACB #30 unit RX: Insulin Human (NPH)/Regular [Novolin 70/30 (70/30 units/ml) 10 ml] 34 units SC ACD #30 unit RX: Insulin Human Isophane (NPH) [Novolin N] 12 unit SC HS #30 unit RX: Losartan [Cozaar] 100 mg PO DAILY #30 tab RX: risperiDONE [RisperDAL Tab] 1 mg PO HS #30 tab RX: Sertraline [Zoloft] 100 mg PO HS #30 tab RX: Simvastatin 10 mg PO HS #30 tablet - Follow Up Plan Condition: FAIR Disposition: AGAINST MEDICAL ADVICE <Abril Sosa V - Last Filed: 09/13/17 15:11> Provider - Provider Date of Admission: 09/08/17 12:28 Attending physician: Abril Sosa, Hospital Course - Lab Results Lab Results: Micro Results 09/11/17 20:30 Blood-Venous Blood Culture - Preliminary NO GROWTH AFTER 24 HOURS 09/11/17 19:00 Blood-Venous Blood Culture - Preliminary NO GROWTH AFTER 24 HOURS 09/08/17 16:15 Blood-Venous Blood Culture - Preliminary NO GROWTH AFTER 4 DAYS 09/10/17 06:32 Naris MRSA Culture - Final MRSA NOT DETECTED 09/08/17 16:45 Blood-Venous Blood Culture - Final Escherichia Coli 09/08/17 16:45 Blood-Venous Gram Stain - Final 09/09/17 14:44 Urine,Clean Catch Urine Culture - Final No Growth (<1,000 CFU/ML) 09/08/17 14:54 Naris MRSA Culture (Admit) - Final MRSA NOT DETECTED Most Recent Lab Values WBC 5.5 K/uL (4.8-10.8) 09/13/17 07:20 RBC 2.91 Mil/uL (3.80-5.20) L 09/13/17 07:20 Hgb 9.0 g/dL (11.0-16.0) L 09/13/17 07:20 Hct 25.4 % (34.0-47.0) L 09/13/17 07:20 MCV 87.2 fL (81.0-99.0) 09/13/17 07:20 MCH 31.0 pg (27.0-31.0) 09/13/17 07:20 MCHC 35.5 g/dL (33.0-37.0) 09/13/17 07:20 RDW 12.7 % (11.5-14.5) 09/13/17 07:20 Plt Count 210 K/uL (130-400) 09/13/17 07:20 MPV 7.9 fL (7.2-11.7) 09/13/17 07:20 Neut % (Auto) 76.1 % (50.0-75.0) H 09/13/17 07:20 Lymph % (Auto) 13.4 % (20.0-40.0) L 09/13/17 07:20 [place] % (Auto) 9.3 % (0.0-10.0) 09/13/17 07:20 Eos % (Auto) 1.0 % (0.0-4.0) 09/13/17 07:20 Baso % (Auto) 0.2 % (0.0-2.0) 09/13/17 07:20 Neut # (Auto) 4.1 K/uL (1.8-7.0) 09/13/17 07:20 Lymph # (Auto) 0.7 K/uL (1.0-4.3) L 09/13/17 07:20 [place] # (Auto) 0.5 K/uL (0.0-0.8) 09/13/17 07:20 Eos # (Auto) 0.1 K/uL (0.0-0.7) 09/13/17 07:20 Baso # (Auto) 0.0 K/uL (0.0-0.2) 09/13/17 07:20 Neutrophils % (Manual) 86 % (50-75) H 09/08/17 11:37 Band Neutrophils % 2 % (0-2) 09/08/17 11:37 Lymphocytes % (Manual) 9 % (20-40) L 09/08/17 11:37 Monocytes % (Manual) 3 % (0-10) 09/08/17 11:37 Platelet Estimate Normal (NORMAL) 09/08/17 11:37 Retic Count 2.5 % (0.5-1.5) H 09/13/17 07:20 Puncture Site Rr 09/09/17 14:34 pCO2 28 mm/Hg (35-45) L 09/09/17 14:34 pO2 91 mm/Hg (80-100) 09/09/17 14:34 HCO3 16.4 mmol/L (21-28) L 09/09/17 14:34 ABG pH 7.31 (7.35-7.45) L 09/09/17 14:34 ABG Total CO2 15.0 mmol/L (22-28) L 09/09/17 14:34 ABG O2 Saturation 99.0 % (95-98) H 09/09/17 14:34 ABG Base Excess -10.9 mmol/L (-2.0-3.0) L 09/09/17 14:34 ABG Hemoglobin 9.7 g/dL (11.7-17.4) L 09/09/17 14:34 ABG Carboxyhemoglobin 2.0 % (0.5-1.5) H 09/09/17 14:34 POC ABG HHb (Measured) 1.0 % (0.0-5.0) 09/09/17 14:34 ABG Methemoglobin 1.5 % (0.0-3.0) 09/09/17 14:34 Fredi Test Pos 09/09/17 14:34 VBG pH 7.28 (7.32-7.43) L 09/08/17 22:14 VBG pCO2 33 mmHg (40-60) L 09/08/17 22:14 VBG HCO3 15.8 mmol/L 09/08/17 22:14 VBG Total CO2 16.5 mmol/L (22-28) L 09/08/17 22:14 VBG O2 Sat (Calc) 70.3 % (40-65) H 09/08/17 22:14 VBG Base Excess -10.2 mmol/L (0.0-2.0) L 09/08/17 22:14 VBG Potassium 3.5 mmol/L (3.6-5.2) L 09/08/17 22:14 A-a O2 Difference 24.0 mm/Hg 09/09/17 14:34 Respiratory Index 0.3 09/09/17 14:34 Hgb O2 Saturation 95.5 % (95.0-98.0) 09/09/17 14:34 Sodium 138.0 mmol/l (132-148) 09/08/17 22:14 Chloride 111.0 mmol/L (98-107) H 09/08/17 22:14 Glucose 199 mg/dl (65-105) H 09/08/17 22:14 Lactate 1.3 mmol/L (0.7-2.1) 09/08/17 22:14 FiO2 21.0 % 09/09/17 14:34 Crit Value Called To md Ron 09/08/17 11:39 Crit Value Called By Rivas dasilva rrt 09/08/17 11:39 Crit Value Read Back Y 09/08/17 11:39 Blood Gas Notified Time 1150 09/08/17 11:39 Sodium 142 mmol/L (132-148) 09/13/17 07:20 Potassium 3.8 mmol/L (3.6-5.2) 09/13/17 07:20 Chloride 105 mmol/L (98-107) 09/13/17 07:20 Carbon Dioxide 28 mmol/L (22-30) 09/13/17 07:20 Anion Gap 13 (10-20) 09/13/17 07:20 BUN 4 mg/dL (7-17) L 09/13/17 07:20 Creatinine 0.8 mg/dL (0.7-1.2) 09/13/17 07:20 Est GFR ( Amer) > 60 09/13/17 07:20 Est GFR (Non-Af Amer) > 60 09/13/17 07:20 POC Glucose (mg/dL) 249 mg/dL (65-110) H 09/13/17 11:13 Random Glucose 104 mg/dL (65-105) 09/13/17 07:20 Hemoglobin A1c 13.8 % (4.2-6.5) H 09/08/17 16:23 Calcium 8.6 mg/dl (8.6-10.4) 09/13/17 07:20 Phosphorus 2.3 mg/dL (2.5-4.5) L 09/13/17 07:20 Magnesium 2.0 mg/dL (1.6-2.3) 09/13/17 07:20 Iron 18 ug/dL (37-170) L 09/12/17 13:56 TIBC 219 ug/dL (250-450) L 09/12/17 13:56 % Saturation 8 (20-55) L 09/13/17 07:20 Ferritin 237.0 ng/mL 09/13/17 07:20 Total Bilirubin < 0.1 mg/dL (0.2-1.3) L 09/13/17 07:20 AST 42 U/L (14-36) H 09/13/17 07:20 ALT 31 U/L (9-52) 09/13/17 07:20 Alkaline Phosphatase 249 U/L (38-126) H 09/13/17 07:20 Troponin I < 0.0120 ng/mL (0.00-0.120) 09/08/17 16:23 Total Protein 6.1 g/dL (6.3-8.3) L 09/13/17 07:20 Albumin 2.7 g/dL (3.5-5.0) L 09/13/17 07:20 Globulin 3.5 gm/dL (2.2-3.9) 09/13/17 07:20 Albumin/Globulin Ratio 0.8 (1.0-2.1) L 09/13/17 07:20 Triglycerides 186 mg/dL (0-149) H D 09/08/17 16:23 Cholesterol 156 mg/dL (0-199) 09/08/17 16:23 LDL Cholesterol Direct 86 mg/dL (0-129) 09/08/17 16:23 HDL Cholesterol 24 mg/dL (30-70) L 09/08/17 16:23 Vitamin B12 > 1000 pg/mL (239-931) H 09/13/17 07:20 Folate 10.5 ng/mL 09/13/17 07:20 TSH 3rd Generation 2.11 mIU/L (0.46-4.68) 09/08/17 11:37 Venous Blood Potassium 3.5 mmol/L (3.6-5.2) L 09/08/17 22:14 Urine Color Straw (YELLOW) 09/10/17 06:31 Urine Clarity Hazy (Clear) 09/10/17 06:31 Urine pH 6.0 (5.0-8.0) 09/10/17 06:31 Ur Specific [place] 1.009 (1.003-1.030) 09/10/17 06:31 Urine Protein Negative mg/dL (NEGATIVE) 09/10/17 06:31 Urine Glucose (UA) 3+ mg/dL (Normal) H 09/10/17 06:31 Urine Ketones Trace mg/dL (NEGATIVE) 09/10/17 06:31 Urine Blood 1+ (NEGATIVE) H 09/10/17 06:31 Urine Nitrate Negative (NEGATIVE) 09/10/17 06:31 Urine Bilirubin Negative (NEGATIVE) 09/10/17 06:31 Urine Urobilinogen Normal mg/dL (0.2-1.0) 09/10/17 06:31 Ur Leukocyte Esterase 2+ Juan Jose/uL (Negative) H 09/10/17 06:31 Urine WBC (Auto) 28 /hpf (0-5) H 09/10/17 06:31 Urine RBC (Auto) 3 /hpf (0-3) 09/10/17 06:31 Ur Squamous Epith Cells 2 /hpf (0-5) 09/10/17 06:31 Urine Bacteria Rare (<OCC) 09/10/17 06:31 Urine Opiates Screen Negative (NEGATIVE) 09/09/17 14:44 Urine Methadone Screen Negative (NEGATIVE) 09/09/17 14:44 Ur Barbiturates Screen Negative (NEGATIVE) 09/09/17 14:44 Valproic Acid 11.2 ug/mL (50.0-100.0) L 09/08/17 16:23 Ur Phencyclidine Scrn Negative (NEGATIVE) 09/09/17 14:44 Ur Amphetamines Screen Negative (NEGATIVE) 09/09/17 14:44 U Benzodiazepines Scrn Negative (NEGATIVE) 09/09/17 14:44 U Oth Cocaine Metabols Negative (NEGATIVE) 09/09/17 14:44 U Cannabinoids Screen Negative (NEGATIVE) 09/09/17 14:44 B-Hydroxybutyrate 3.17 mM (0.02-0.27) H 09/09/17 06:23 Attending/Attestation - Attestation I have personally seen and examined this patient.: Yes I have fully participated in the care of the patient.: Yes I have reviewed all pertinent clinical information, including history, physical exam and plan: Yes Notes (Text): Patient seen, examined and case discussed with day-time resident. Patient seen this morning. Patient reports she is feeling good. Patient denies headache, denies chest pain, denies shortness of breathe, denies cough, denies abdominal pain, denies nausea, denies vomitting, and denies dysuria. Patient reports she is very eager to go home. We have spoken to her at length explaining that we are waiting on the blood cultures since she is on IV abx. Patient does not want to wait to make sure her blood cultures are negative. Risks of leaving against medical advice was explained by both myself and my resident, Dr Rosen. We have provided patient her scripts for her insulin, antibiotic, and her home medications. Patient is aware she needs insulin given her diabetes. We attempted to try insulin foundation for her but will take time and she does not want to wait. Resident has made a clinic appointment at [facility] to follow-up. Patient has a scheduled Clinic Appointment in [place] on September 29 at 10:30am and patient is aware and stated she will go. Pharmacy was able to provide the patient with free insulin medications using the voucher form. We have worked with the case/social work to ensure that patient is provided her insulin in light of her diabetes. Prescriptions for the following medications were given to the patient and written out in Greek. 1.) Insulin 70/30: 44 units w breakfast 2.) Depakote 500mg one tab w breakfast 3.) Losartan 100mg one tab w breakfast 4.) Augmentin 875/125mg one tab w breakfast and with dinner for 5 days 5.) Insulin 70/30: 34 units at dinner 6.) Simvastatin 10mg at diner 7.) Insulin NPH: 12 units once a day 8.) Risperidone 1mg once a day 9.) Sertraline 100mg once a day This is a summary of patient's hospitalization. Please see EMR for further details. Assessment/Plan 1) Left Against Medical Advice * Resident Silas and myself have explained to the risks of leaving prematurely from hospitalization as she is recovering from bacteremia as we wait on repeat blood cultures as well as try to securing an affordable option for her insulin she will need for her diabetes. * Social and case management aware will work to see if we can get medications for patient in light of her diabetes. 2) DKA-->Stabilized History of Uncontrolled Diabetes Type II-->chronic * patient was admitted to ICU, stablized and transferred out from the unit * B-Hydroxybutyrate: 9.68 --> 3.17 * Chest Xray: No active pulmonary disease * EKG: NSR at 135bpm * UA: +glucose; ketones and blood * Endocrinology consult: Dr. Gonzales --> help appreciated * hA1c (09/08/17): 13.8 * Insulin regiment: * Increased to Novolin 70/30 44 units subqACB * Novolin 70/30 34 units ACD * Decreased to Novolin N 12 unit sub HS * Patient is a [facility] patient and from her last visit for Diabetes on 03/25/17 [address]ident PGY-2 Dr. Paulino prescribed her Lantus 20 units BID however patient stated she does not take insulin at home either due to aversion to insulin or due to monetary means. * Aspirin 81mg PO daily * Cozaar 100mg PO daily * Crestor 5mg POqHS 3) E. Coli Bacteremia Leukocytosis * Possibly secondary to Inflammatory Reaction due to DKA vs. Infection * On admission WBC 12.6 with Left shift-->normalized * UA Negative * Urine culture (09/09/17): Negative * Blood culture (09/08/17: E. Coli (one out for 2 bottles) * Blood culture (09/11/17): negative for 24 hours * c/w Cefepime 1gm q12h (started 09/09/17) * patient is resistant to Cipro; will try Augmentin (sensitive to Ampicillin) * Echo (09/13/17): mild concentric left ventricular hypertrophy. left ventricule systolic function is normal. ejection fraction is 60-65%. Trace aortic regurgitation. 4) Anemia * secondary to dilution vs. medication side effect (Risperidone) * Hemacolt: negative * Continue to Monitor * Discussed with patient the importance to have a colonoscopy completed as an outpatient * Will order for reticulocyte count, iron studies, ferritin, b12, folate 5) Hypokalemia * Monitor and replete * insulin adjusted today 6) Hypertension * Losartan 100mg PO daily * TSH (09/08/17): 2.11 * ECHO (09/26/15): EF 58%; normal biventricular function; insignificant trace of mitral and aortic regurgitation; no pericardial effusion * Echo (09/13/17): mild concentric left ventricular hypertrophy. left ventricule systolic function is normal. ejection fraction is 60-65%. Trace aortic regurgitation. 7) Lipid Disorder * Home Medication: Simvastatin 10mg HS (not available on hospital formulary switched to Crestor 5mg POqHS * Lipid Panel (03/25/17): Triglycerides 314; Total Cholesterol 192; LDL 106; HDL 45 * Lipid Panel (09/08/17): Triglycerides 186; Total Cholesterol 156; LDL 86; HDL 24 8) History of Schizophrenia/questionable depression * Restarted Home Medications: * Depakote DR 500mg daily * Risperidone 1mg HS * Sertraline 100mg HS * Valproic acid level: 11.2 9) Prophylaxis * Lovenox 30mg SC Daily (DVT risk of 1) * SCDs * Florastor 250mg po bid * GI prophylaxis not indicated * PT eval and treat * Lifter [employer]ist
[2017-09-13 11:42] VITALS: BP 164/90; PULSE 88
== END 2017-09-13 14:00 | disposition left against medical advice (07) | DRG 566 ==
LOC: C.ER 11:02 → C.9I 12:28 → C.3T 09-10 00:20
PROVIDERS: ADMIT Hospitalist; ATTEND Hospitalist
DX: E11.10 Type 2 diabetes mellitus with ketoacidosis without coma (principal); N17.9 Acute kidney failure, unspecified; R65.11 Systemic inflammatory response syndrome (SIRS) of non-infectious origin with acute organ dysfunction; R78.81 Bacteremia; F25.8 Other schizoaffective disorders; E86.0 Dehydration; E87.6 Hypokalemia; E87.2 Acidosis; Z79.4 Long term (current) use of insulin; I10 Essential (primary) hypertension; E78.5 Hyperlipidemia, unspecified; R31.29 Other microscopic hematuria; B96.20 Unspecified Escherichia coli [E. coli] as the cause of diseases classified elsewhere; Z66 Do not resuscitate; D50.9 Iron deficiency anemia, unspecified; F32.9 Major depressive disorder, single episode, unspecified

== ENCOUNTER 2017-10-07 18:08 | Inpatient (IN) | payer SELFPAY ==
[2017-10-07 18:08] VITALS: BMI 26.5
[2017-10-07] MEDS ORDERED: Sodium Chloride 0.9% 1,000 ML IV ONE ×2 (18:59→19:00)
--- NOTE | 2017-10-07 19:01 | C.PDOC ---
History Of Present Illness 57-year-old female, presents to the emergency department with complaints of abdominal pain x4-5 days. Pain is generalized but wore in lower quadrants. She notes associated diarrhea, intermittent fever and foul smelling urine. Patient denies any nausea/vomiting, back pain, or any other associated symptoms. No other complaints at this time. Chief Complaint (Nursing): Abdominal Pain History Per: Patient History/Exam Limitations: no limitations Current Symptoms Are (Timing): Still Present Severity: Moderate Location Of Pain/Discomfort: Diffuse Past Medical History Reviewed: Historical Data, Nursing Documentation, Vital Signs Vital Signs: Last Vital Signs Temp 99.6 F 10/07/17 18:24 Pulse 102 H 10/07/17 18:24 Resp 20 10/07/17 18:24 BP 143/82 10/07/17 18:24 Pulse Ox 98 10/07/17 23:56 - Medical History PMH: Arthritis (L SH), Depression, Diabetes, HTN, Hypercholesterolemia, Hyperlipidemia, Schizophrenia Surgical History: - [facility] Procedures OTHER SKIN & SUBQ I D (07/30/13) Family History: States: No Known Family Hx - Social History Hx Tobacco Use: No Hx Alcohol Use: No Hx Substance Use: No - Immunization History Hx Tetanus Toxoid Vaccination: Yes Hx Influenza Vaccination: Yes Hx Pneumococcal Vaccination: Yes Review Of Systems Constitutional: Positive for: Fever. Negative for: Chills Cardiovascular: Negative for: Chest Pain, Palpitations Respiratory: Negative for: Shortness of Breath Gastrointestinal: Positive for: Abdominal Pain, Diarrhea. Negative for: Nausea , Vomiting Genitourinary: Positive for: Other (foul smelling urine). Negative for: Dysuria , Vaginal Discharge, Vaginal Bleeding Musculoskeletal: Negative for: Back Pain Skin: Negative for: Rash Neurological: Negative for: Weakness Physical Exam - Physical Exam Appears: Non-toxic, No Acute Distress Skin: Normal Color, Warm, Dry Head: Atraumatic, Normacephalic Eye(s): bilateral: Normal Inspection, PERRL, EOMI Nose: Normal Oral Mucosa: Moist Lips: Normal Appearing Neck: Normal ROM Cardiovascular: Rhythm Regular, No Murmur Respiratory: Normal Breath Sounds, No Accessory Muscle Use Gastrointestinal/Abdominal: Soft, Tenderness (Diffuse, LLQ>RLQ), No Guarding, No Rebound Back: Normal Inspection Extremity: Normal ROM, No Deformity, No Swelling Neurological/Psych: Oriented x3, Normal Speech ED Course And Treatment - Laboratory Results Result Diagrams: 10/07/17 22:18 10/07/17 22:18 O2 Sat by Pulse Oximetry: 98 (RA) Pulse Ox Interpretation: Normal Disposition Discussed With DrGuy: Yossi Moore Doctor Will See Patient In The: Hospital Counseled Patient/Family Regarding: Diagnosis - Disposition Referrals: Cedrick Moore MD [Staff Provider] - Disposition: HOSPITALIZED Disposition Time: 00:22 Condition: STABLE Forms: [facility] (Slovenian) - POA Present On Arrival: None - Clinical Impression Clinical Impression: Pyelonephritis, Diabetic acetonemia, Uncontrolled diabetes mellitus - Scribe Statement The provider has reviewed the documentation as recorded by the Scribe (Joanne Robert) All medical record entries made by the Scribe were at my direction and personally dictated by me. I have reviewed the chart and agree that the record accurately reflects my personal performance of the history, physical exam, medical decision making, and the department course for this patient. I have also personally directed, reviewed, and agree with the discharge instructions and disposition.
--- NOTE | 2017-10-07 19:01 | C.PDOC ---
Chief Complaint (Nursing): Abdominal Pain Past Medical History Vital Signs: Last Vital Signs Temp 99.6 F 10/07/17 18:24 Pulse 102 H 10/07/17 18:24 Resp 20 10/07/17 18:24 BP 143/82 10/07/17 18:24 Pulse Ox 98 10/07/17 18:24 - Medical History PMH: Arthritis (L SH), Depression, Diabetes, HTN, Hypercholesterolemia, Hyperlipidemia, Schizophrenia Denies: Diverticulitis, Chronic Kidney Disease Surgical History: - [facility] Procedures OTHER SKIN & SUBQ I D (07/30/13) Family History: States: Unknown Family Hx - Social History Hx Tobacco Use: No Hx Alcohol Use: No Hx Substance Use: No - Immunization History Hx Tetanus Toxoid Vaccination: Yes Hx Influenza Vaccination: Yes Hx Pneumococcal Vaccination: Yes ED Course And Treatment O2 Sat by Pulse Oximetry: 98 Disposition - Disposition
[2017-10-07] MEDS ORDERED: Iohexol 240 (50 ml) PO ONE (19:02)
[2017-10-07 19:12] LABS: BASO % 0.3 % (0.0-2.0); EOS % 0.1 % (0.0-4.0); HEMOGLOBIN 10.1 g/dL (11.0-16.0); LYMPH # 0.5 K/uL (1.0-4.3); LYMPH % 3.1 % (20.0-40.0); MEAN CELL VOLUME 89.3 fL (81.0-99.0); MEAN CORPUSCULAR HEMOGLOBIN 28.9 pg (27.0-31.0); MEAN CORPUSCULAR HGB CONC 32.3 g/dL (33.0-37.0); MEAN PLATELET VOLUME 8.8 fL (7.2-11.7); MONO # 0.5 K/uL (0.0-0.8); NEUT # 16.3 K/uL (1.8-7.0); NEUT % 93.5 % (50.0-75.0); PLATELET COUNT 390 K/uL (130-400); RED CELL DISTRIBUTION WIDTH 14.2 % (11.5-14.5); WHITE BLOOD COUNT 17.4 K/uL (4.8-10.8)
[2017-10-07] MEDS ORDERED: Sodium Chloride 0.9% 2,000 ML ONE (19:13)
[2017-10-07] MEDS ORDERED: Iohexol 240 (50 ml) ONE (19:13)
[2017-10-07] MEDS ORDERED: (Novolin R) Insulin Human Regular 100 units/ml vial IV STA (19:18)
[2017-10-07 19:19] LABS: SQUAMOUS EPITHIAL 27 /hpf (0-5); URINE BACTERIA MOD (<OCC); URINE BILIRUBIN NEGATIVE (NEGATIVE); URINE BLOOD 2+ (NEGATIVE); URINE CLARITY Hazy (Clear); URINE COLOR Yellow (YELLOW); URINE GLUCOSE (UA) 3+ mg/dL (Normal); URINE LEUKOCYTE ESTERASE 3+ Leu/uL (Negative); URINE PROTEIN 1+ mg/dL (NEGATIVE)
[2017-10-07] MEDS ORDERED: (Novolin R) Insulin Human Regular 100 units/ml vial ONE ×2 (19:25→23:09)
[2017-10-07 19:32] LABS: ALB/GLOB RATIO 0.8 (1.0-2.1); ALBUMIN 3.8 g/dL (3.5-5.0); CALCIUM 9.2 mg/dl (8.6-10.4)
[2017-10-07] MEDS ORDERED: cefTRIAXone IV 1 gm in Dextros 50 ML IVPB ONE ×2 (19:58→20:08)
[2017-10-07 20:14] LABS: BANDS 4 % (0-2); LYMPHOCYTE 2 % (20-40); MONOCYTE 3 % (0-10); NEUTROPHIL 91 % (50-75); PLATELET ESTIMATE NORMAL (NORMAL); TOTAL CELLS COUNTED 100
[2017-10-07 20:15] LABS: HYPOCHROMIC SLIGHT; POLYCHROMIC SLIGHT
[2017-10-07 20:28] LABS: ABG ALLEN TEST POS; ARTERIAL BLOOD GAS HCO3 20.4 mmol/L (21-28); ARTERIAL BLOOD GAS PCO2 31 mm/Hg (35-45); ARTERIAL BLOOD GAS PH 7.38 (7.35-7.45); ARTERIAL BLOOD GAS PO2 69 mm/Hg (80-100); ARTERIAL BLOOD GAS TCO2 19.3 mmol/L (22-28)
[2017-10-07] MEDS ORDERED: Sodium Chloride 0.45% 500ml 1,000 ML IV ONE (20:29)
[2017-10-07 22:24] LABS: BASO % 0.2 % (0.0-2.0); EOS # 0.1 K/uL (0.0-0.7); EOS % 0.4 % (0.0-4.0); HEMOGLOBIN 8.7 g/dL (11.0-16.0); LYMPH # 0.5 K/uL (1.0-4.3); LYMPH % 3.1 % (20.0-40.0); MEAN CELL VOLUME 88.6 fL (81.0-99.0); MEAN CORPUSCULAR HEMOGLOBIN 28.5 pg (27.0-31.0); MEAN CORPUSCULAR HGB CONC 32.1 g/dL (33.0-37.0); MEAN PLATELET VOLUME 8.5 fL (7.2-11.7); MONO # 0.7 K/uL (0.0-0.8); MONO % 4.9 % (0.0-10.0); NEUT # 13.2 K/uL (1.8-7.0); NEUT % 91.4 % (50.0-75.0); RBC 3.05 Mil/uL (3.80-5.20); RED CELL DISTRIBUTION WIDTH 13.9 % (11.5-14.5); WHITE BLOOD COUNT 14.5 K/uL (4.8-10.8)
[2017-10-07 22:58] LABS: BLOOD UREA NITROGEN 23 mg/dL (7-17); CALCIUM 8.1 mg/dl (8.6-10.4); GFR AFRICAN-AMERICAN > 60; GFR NON-AFRICAN AMERICAN 57
[2017-10-07] MEDS: Insulin Human Regular 100 UNIT in Sodium Chloride 0.9% 99 ML IV SCH (23:13)
--- NOTE | 2017-10-08 00:16 | CP.PCM.CON ---
History of Present Illness - History of Present Illness History of Present Illness: 57 y/o female with pmx of DM presents to [facility] with c/o abdominal pain. Patient has history of UTI with kidney stone (+)subjective fevers, chills , polyuria, polydipsia denies any chest pain, denies any dizziness. Pmx: HTN, HLD, DM, schizophrenia Psurg hx: tubal ligation, colonoscopy Medications:patient does not remember Allergies: NKDA SH: denies illicit drug use Review of Systems - Review of Systems Review of Systems: as per HPI Past Patient History - Infectious Disease Hx of Infectious Diseases: None - Past Medical History & Family History Past Medical History?: Yes - Past Social History Smoking Status: Never Smoked - CARDIAC Hx Hypercholesterolemia: Yes Hx Hypertension: Yes - PULMONARY Hx Respiratory Disorders: No - NEUROLOGICAL Hx Neurological Disorder: No - HEENT Hx HEENT Problems: No - RENAL Hx Chronic Kidney Disease: No - ENDOCRINE/METABOLIC Hx Diabetes Mellitus Type 2: Yes - HEMATOLOGICAL/ONCOLOGICAL Hx Blood Disorders: No - INTEGUMENTARY Hx Dermatological Problems: No - MUSCULOSKELETAL/RHEUMATOLOGICAL Hx Arthritis: Yes (L SH) - GASTROINTESTINAL Hx Diverticulitis: No - GENITOURINARY/GYNECOLOGICAL Hx Genitourinary Disorders: Yes Hx Urinary Tract Infection: Yes - PSYCHIATRIC Hx Depression: Yes Hx Schizophrenia: Yes Hx Substance Use: No - SURGICAL HISTORY Hx Surgeries: Yes Hx Tubal Ligation: Yes Other/Comment: ;fibroids removed - ANESTHESIA Hx Anesthesia: Yes Hx Anesthesia Reactions: No Meds Allergies/Adverse Reactions: Allergies Allergy/AdvReac Type Severity Reaction Status Date / Time No Known Allergies Allergy Verified 10/07/17 18:29 - Medications Medications: Current Medications Sodium Chloride (Sodium Chloride 0.9%) 1,000 mls @ 100 mls/hr IV .Q10H ONE Stop: 10/08/17 04:59 Last Admin: 10/07/17 19:14 Dose: 100 mls/hr Insulin Human Regular 100 unit (/ Sodium Chloride) 100 mls @ 6 mls/hr IV .[id number] [facility] Last Admin: 10/07/17 23:13 Dose: Not Given Physical Exam - Head Exam Head Exam: ATRAUMATIC, NORMAL INSPECTION, NORMOCEPHALIC - Eye Exam Pupil Exam: PERRL - ENT Exam ENT Exam: Mucous Membranes Moist - Neck Exam Neck exam: Positive for: Normal Inspection - Respiratory Exam Respiratory Exam: NORMAL BREATHING PATTERN - Cardiovascular Exam Cardiovascular Exam: REGULAR RHYTHM, +S1, +S2 - GI/Abdominal Exam GI & Abdominal Exam: Normal Bowel Sounds, Soft, Tenderness Additional comments: left sided flank pain - Extremities Exam Extremities exam: Positive for: normal inspection - Back Exam Back exam: CVA tenderness (L) - Neurological Exam Neurological exam: Alert, Oriented x3 Results - Vital Signs Recent Vital Signs: Last Vital Signs Temp 99.6 F 10/07/17 18:24 Pulse 102 H 10/07/17 18:24 Resp 20 10/07/17 18:24 BP 143/82 10/07/17 18:24 Pulse Ox 98 10/07/17 23:56 - Labs Result Diagrams: 10/07/17 22:18 10/07/17 22:18 Labs: Laboratory Results - last 24 hr 10/07/17 10/07/17 10/07/17 19:08 19:08 19:08 WBC 17.4 H D RBC 3.50 L Hgb 10.1 L Hct 31.2 L MCV 89.3 D MCH 28.9 MCHC 32.3 L RDW 14.2 Plt Count 390 D MPV 8.8 Neut % (Auto) 93.5 H Lymph % (Auto) 3.1 L Sunflower % (Auto) 3.0 Eos % (Auto) 0.1 Baso % (Auto) 0.3 Neut # (Auto) 16.3 H Lymph # (Auto) 0.5 L Sunflower # (Auto) 0.5 Eos # (Auto) 0.0 Baso # (Auto) 0.0 Neutrophils % (Manual) 91 H Band Neutrophils % 4 H Lymphocytes % (Manual) 2 L Monocytes % (Manual) 3 Platelet Estimate Normal Polychromasia Slight Hypochromasia (manual) Slight Puncture Site pCO2 pO2 HCO3 ABG pH ABG Total CO2 ABG O2 Saturation ABG Base Excess ABG Hemoglobin ABG Carboxyhemoglobin POC ABG HHb (Measured) ABG Methemoglobin Fredi Test A-a O2 Difference Respiratory Index Hgb O2 Saturation FiO2 Sodium 123 L Potassium 5.3 H Chloride 84 L Carbon Dioxide 19 L Anion Gap 26 H BUN 26 H Creatinine 1.2 Est GFR ( Amer) 56 Est GFR (Non-Af Amer) 46 POC Glucose (mg/dL) > 500 H* Random Glucose 611 H* D Calcium 9.2 Total Bilirubin 1.4 H AST 30 ALT 15 Alkaline Phosphatase 377 H D Total Protein 8.6 H Albumin 3.8 Globulin 4.8 H Albumin/Globulin Ratio 0.8 L Lipase 736 H Urine Color Urine Clarity Urine pH Ur Specific [place] Urine Protein Urine Glucose (UA) Urine Ketones Urine Blood Urine Nitrate Urine Bilirubin Urine Urobilinogen Ur Leukocyte Esterase Urine WBC (Auto) Urine RBC (Auto) Ur Squamous Epith Cells Urine Bacteria B-Hydroxybutyrate 4.30 H 10/07/17 10/07/17 10/07/17 19:09 19:09 19:57 WBC RBC Hgb Hct MCV MCH MCHC RDW Plt Count MPV Neut % (Auto) Lymph % (Auto) Sunflower % (Auto) Eos % (Auto) Baso % (Auto) Neut # (Auto) Lymph # (Auto) Sunflower # (Auto) Eos # (Auto) Baso # (Auto) Neutrophils % (Manual) Band Neutrophils % Lymphocytes % (Manual) Monocytes % (Manual) Platelet Estimate Polychromasia Hypochromasia (manual) Puncture Site pCO2 pO2 HCO3 ABG pH ABG Total CO2 ABG O2 Saturation ABG Base Excess ABG Hemoglobin ABG Carboxyhemoglobin POC ABG HHb (Measured) ABG Methemoglobin Fredi Test A-a O2 Difference Respiratory Index Hgb O2 Saturation FiO2 Sodium Potassium Chloride Carbon Dioxide Anion Gap BUN Creatinine Est GFR ( Amer) Est GFR (Non-Af Amer) POC Glucose (mg/dL) > 500 H* 477 H* Random Glucose Calcium Total Bilirubin AST ALT Alkaline Phosphatase Total Protein Albumin Globulin Albumin/Globulin Ratio Lipase Urine Color Yellow Urine Clarity Hazy Urine pH 5.0 Ur Specific [place] 1.018 Urine Protein 1+ H Urine Glucose (UA) 3+ H Urine Ketones 1+ H Urine Blood 2+ H Urine Nitrate Negative Urine Bilirubin Negative Urine Urobilinogen 2.0 H Ur Leukocyte Esterase 3+ H Urine WBC (Auto) 456 H Urine RBC (Auto) 125 H Ur Squamous Epith Cells 27 H Urine Bacteria Mod H B-Hydroxybutyrate 10/07/17 10/07/17 10/07/17 19:59 20:22 22:18 WBC 14.5 H RBC 3.05 L Hgb 8.7 L Hct 27.0 L MCV 88.6 MCH 28.5 MCHC 32.1 L RDW 13.9 Plt Count 294 MPV 8.5 Neut % (Auto) 91.4 H Lymph % (Auto) 3.1 L Sunflower % (Auto) 4.9 Eos % (Auto) 0.4 Baso % (Auto) 0.2 Neut # (Auto) 13.2 H Lymph # (Auto) 0.5 L Sunflower # (Auto) 0.7 Eos # (Auto) 0.1 Baso # (Auto) 0.0 Neutrophils % (Manual) Band Neutrophils % Lymphocytes % (Manual) Monocytes % (Manual) Platelet Estimate Polychromasia Hypochromasia (manual) Puncture Site Lra pCO2 31 L pO2 69 L HCO3 20.4 L ABG pH 7.38 ABG Total CO2 19.3 L ABG O2 Saturation 96.0 ABG Base Excess -5.6 L ABG Hemoglobin 15.0 ABG Carboxyhemoglobin 2.5 H POC ABG HHb (Measured) 3.9 ABG Methemoglobin 1.2 Fredi Test Pos A-a O2 Difference 42.0 Respiratory Index 0.6 Hgb O2 Saturation 92.4 L FiO2 21.0 Sodium Potassium Chloride Carbon Dioxide Anion Gap BUN Creatinine Est GFR ( Amer) Est GFR (Non-Af Amer) POC Glucose (mg/dL) > 500 H* Random Glucose Calcium Total Bilirubin AST ALT Alkaline Phosphatase Total Protein Albumin Globulin Albumin/Globulin Ratio Lipase Urine Color Urine Clarity Urine pH Ur Specific [place] Urine Protein Urine Glucose (UA) Urine Ketones Urine Blood Urine Nitrate Urine Bilirubin Urine Urobilinogen Ur Leukocyte Esterase Urine WBC (Auto) Urine RBC (Auto) Ur Squamous Epith Cells Urine Bacteria B-Hydroxybutyrate 10/07/17 10/07/17 22:18 23:56 WBC RBC Hgb Hct MCV MCH MCHC RDW Plt Count MPV Neut % (Auto) Lymph % (Auto) Sunflower % (Auto) Eos % (Auto) Baso % (Auto) Neut # (Auto) Lymph # (Auto) Sunflower # (Auto) Eos # (Auto) Baso # (Auto) Neutrophils % (Manual) Band Neutrophils % Lymphocytes % (Manual) Monocytes % (Manual) Platelet Estimate Polychromasia Hypochromasia (manual) Puncture Site pCO2 pO2 HCO3 ABG pH ABG Total CO2 ABG O2 Saturation ABG Base Excess ABG Hemoglobin ABG Carboxyhemoglobin POC ABG HHb (Measured) ABG Methemoglobin Fredi Test A-a O2 Difference Respiratory Index Hgb O2 Saturation FiO2 Sodium 124 L Potassium 5.1 Chloride 90 L Carbon Dioxide 17 L Anion Gap 22 H BUN 23 H Creatinine 1.0 Est GFR ( Amer) > 60 Est GFR (Non-Af Amer) 57 POC Glucose (mg/dL) 472 H* Random Glucose 528 H* Calcium 8.1 L Total Bilirubin AST ALT Alkaline Phosphatase Total Protein Albumin Globulin Albumin/Globulin Ratio Lipase Urine Color Urine Clarity Urine pH Ur Specific [place] Urine Protein Urine Glucose (UA) Urine Ketones Urine Blood Urine Nitrate Urine Bilirubin Urine Urobilinogen Ur Leukocyte Esterase Urine WBC (Auto) Urine RBC (Auto) Ur Squamous Epith Cells Urine Bacteria B-Hydroxybutyrate Assessment & Plan - Assessment and Plan (Free Text) Assessment: DKA (2nd pylonephritis/complex UTI): continue IVF NS at 100 ml/hr with 0.1 units /kg/hr of insulin as per DKA protocol, cmp/mag/phos/BHB q6hrs, accuheck q1hrs, check ans replace all electrolytes, if BGM <250 switch from NS to 1/2NS+D5 at 100 ml/hr -pylopehiritis with kidney stone/sepsis: suspect GNR, continue IV zosyn, de- escalate as per culutres, oral flomax to hlep relieve kidney stone, serial lactic q4hrs -at riskof CAD: start asa/statin when no procedure anticipated -NPO -dvt ppx heparin SQ -PUd ppx pepcid -continue all other home medications Patient will benefit from ICu level care until DKA resolves. - Date & Time Date: 10/08/17 Time: 05:38
[2017-10-08] MEDS ORDERED: Sodium Chloride 0.9% 1,000 ML IV ONE (00:19)
[2017-10-08] MEDS ORDERED: Piperacillin/Tazobact 3.375 GM in Sodium Chloride 100 ML IVPB SCH (00:30)
[2017-10-08] MEDS: Insulin Human Regular 100 UNIT in Sodium Chloride 0.9% 99 ML IV SCH (00:55)
[2017-10-08] MEDS ORDERED: (Novolin R) Insulin Human Regular 100 units/ml vial IV STA (01:02)
[2017-10-08 01:12] LABS: B-TYPE NATRIURETIC PEPTIDE 59.9 pg/mL (0-900)
[2017-10-08 01:17] LABS: TOTAL IRON BINDING CAPACITY 391 ug/dL (250-450)
[2017-10-08 01:30] LABS: IRON 61 ug/dL (37-170)
[2017-10-08 01:38] LABS: FERRITIN 9.6 ng/mL
--- NOTE | 2017-10-08 01:56 | CP.PCM.HP ---
<Iliana Wilder E - Last Filed: 10/08/17 03:28> History of Present Illness - History of Present Illness History of Present Illness: CC: Abdominal Pain HPI: Patient is a 57 year old female with past medical history of HTN, HLD, DM, schizophrenia, who presents to the clinic with complaints of diffuse abdominal pain that started 2-3 days ago. Patient reports associated symptoms of diarrhea , nausea, subjective fever, chills, polydipsia, polyuria. Patient denies chest pain, palpitations, SOB, dizziness, headache, blurry vision, numbness and tingling. Patient's last admission was 09/08/17 for diabetic ketoacidosis and metabolic acidosis with an anion gap of 31 and was also found to be bacteremic. However, patient left against medical advice on day 5 of admission without finishing antibiotic course. Code Status: Full code Person of contact: Ricardo Dallas, PMD: Dr. Roberson Past medical history: HTN, HLD, DM, schizophrenia Past surgical history: tubal ligation, colonoscopy Medications: Depakote 250mg PO BID, Metformin 500mg BID; Sertraline 100mg HS; Risperidone 1mg HS; Losartan Potassium 100mg daily; Simvastatin 10mg HS, Ferrous sulfate 325mg PO daily, Glimepiride 4mg PO daily, Insulin 70/30 44 units SC daily with breakfast, Insulin 70/30 34 units SC daily with dinner Allergies: NKDA Family history: denies family history of cardiac disease; family history of DM ( sister, brother); history of cancer (father- "back", mother- colon, sister- breast) Social history: denies tobacco/alcohol/drug use; 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 absent: Headache, Increased Appetite - EENT Eyes: absent: Blurred Vision, Change in Vision Ears: absent: Dizziness Nose/Mouth/Throat: absent: Nasal Congestion - Cardiovascular Cardiovascular: absent: Chest Pain, Diaphoresis, Dyspnea, Lightheadedness, Palpitations - Respiratory Respiratory: absent: Dyspnea - Gastrointestinal Gastrointestinal: Abdominal Pain, Diarrhea, Nausea. absent: Constipation, Vomiting - Genitourinary Genitourinary: Urinary Frequency. absent: Dysuria, Hematuria, Urinary Incontinence - Musculoskeletal Musculoskeletal: absent: Back Pain, Joint Swelling, Limited Range of Motion - Neurological Neurological: absent: Abnormal Gait, Confusion, Dizziness, Headaches, Lack of Coordination, Paresthesias, Weakness - Endocrine Endocrine: Fatigue, Polydipsia, Polyuria. absent: Palpitations, Polyphagia Past Patient History - Infectious Disease Hx of Infectious Diseases: None - Past Medical History & Family History Past Medical History?: Yes - Past Social History Smoking Status: Never Smoked - CARDIAC Hx Hypercholesterolemia: Yes Hx Hypertension: Yes - PULMONARY Hx Respiratory Disorders: No - NEUROLOGICAL Hx Neurological Disorder: No - HEENT Hx HEENT Problems: No - RENAL Hx Chronic Kidney Disease: No - ENDOCRINE/METABOLIC Hx Diabetes Mellitus Type 2: Yes - HEMATOLOGICAL/ONCOLOGICAL Hx Blood Disorders: No - INTEGUMENTARY Hx Dermatological Problems: No - MUSCULOSKELETAL/RHEUMATOLOGICAL Hx Arthritis: Yes (L SH) - GASTROINTESTINAL Hx Diverticulitis: No - GENITOURINARY/GYNECOLOGICAL Hx Genitourinary Disorders: Yes Hx Urinary Tract Infection: Yes - PSYCHIATRIC Hx Depression: Yes Hx Schizophrenia: Yes Hx Substance Use: No - SURGICAL HISTORY Hx Surgeries: Yes Hx Tubal Ligation: Yes Other/Comment: ;fibroids removed - ANESTHESIA Hx Anesthesia: Yes Hx Anesthesia Reactions: No Meds Allergies/Adverse Reactions: Allergies Allergy/AdvReac Type Severity Reaction Status Date / Time No Known Allergies Allergy Verified 10/07/17 18:29 Physical Exam - Constitutional Appears: No Acute Distress - Head Exam Head Exam: ATRAUMATIC, NORMAL INSPECTION - Eye Exam Eye Exam: EOMI, Normal appearance - ENT Exam ENT Exam: Mucous Membranes Moist - Respiratory Exam Respiratory Exam: Clear to Auscultation Bilateral, NORMAL BREATHING PATTERN. absent: Prolonged Expiratory Phase, Rales, Rhonchi, Wheezes, Respiratory Distress - Cardiovascular Exam Cardiovascular Exam: REGULAR RHYTHM, +S1, +S2 - GI/Abdominal Exam GI & Abdominal Exam: Normal Bowel Sounds, Soft, Tenderness. absent: Bruit, Diminished Bowel Sounds, Distended, Firm, Guarding, Hernia - Extremities Exam Extremities exam: Positive for: normal inspection, pedal pulses present. Negative for: calf tenderness, pedal edema - Back Exam Back exam: CVA tenderness (L). absent: CVA tenderness (R) - Neurological Exam Neurological exam: Alert, Normal Gait, Oriented x3 - Psychiatric Exam Psychiatric exam: Normal Affect - Skin Skin Exam: Normal Color Results - Vital Signs Recent Vital Signs: Last Vital Signs Temp 99.1 F 10/08/17 01:20 Pulse 101 H 10/08/17 01:20 Resp 20 10/08/17 01:20 BP 163/78 H 10/08/17 01:20 Pulse Ox 97 10/08/17 01:20 - Labs Result Diagrams: 10/07/17 22:18 10/07/17 22:18 Labs: Laboratory Results - last 24 hr 10/07/17 10/07/17 10/07/17 19:08 19:08 19:08 WBC 17.4 H D RBC 3.50 L Hgb 10.1 L Hct 31.2 L MCV 89.3 D MCH 28.9 MCHC 32.3 L RDW 14.2 Plt Count 390 D MPV 8.8 Neut % (Auto) 93.5 H Lymph % (Auto) 3.1 L [place] % (Auto) 3.0 Eos % (Auto) 0.1 Baso % (Auto) 0.3 Neut # (Auto) 16.3 H Lymph # (Auto) 0.5 L [place] # (Auto) 0.5 Eos # (Auto) 0.0 Baso # (Auto) 0.0 Neutrophils % (Manual) 91 H Band Neutrophils % 4 H Lymphocytes % (Manual) 2 L Monocytes % (Manual) 3 Platelet Estimate Normal Polychromasia Slight Hypochromasia (manual) Slight Puncture Site pCO2 pO2 HCO3 ABG pH ABG Total CO2 ABG O2 Saturation ABG Base Excess ABG Hemoglobin ABG Carboxyhemoglobin POC ABG HHb (Measured) ABG Methemoglobin Fredi Test A-a O2 Difference Respiratory Index Hgb O2 Saturation FiO2 Sodium 123 L Potassium 5.3 H Chloride 84 L Carbon Dioxide 19 L Anion Gap 26 H BUN 26 H Creatinine 1.2 Est GFR ( Amer) 56 Est GFR (Non-Af Amer) 46 POC Glucose (mg/dL) > 500 H* Random Glucose 611 H* D Calcium 9.2 Iron TIBC Total Bilirubin 1.4 H AST 30 ALT 15 Alkaline Phosphatase 377 H D NT-Pro-B Natriuret Pep Total Protein 8.6 H Albumin 3.8 Globulin 4.8 H Albumin/Globulin Ratio 0.8 L Lipase 736 H Urine Color Urine Clarity Urine pH Ur Specific [place] Urine Protein Urine Glucose (UA) Urine Ketones Urine Blood Urine Nitrate Urine Bilirubin Urine Urobilinogen Ur Leukocyte Esterase Urine WBC (Auto) Urine RBC (Auto) Ur Squamous Epith Cells Urine Bacteria B-Hydroxybutyrate 4.30 H 10/07/17 10/07/17 10/07/17 19:09 19:09 19:57 WBC RBC Hgb Hct MCV MCH MCHC RDW Plt Count MPV Neut % (Auto) Lymph % (Auto) [place] % (Auto) Eos % (Auto) Baso % (Auto) Neut # (Auto) Lymph # (Auto) [place] # (Auto) Eos # (Auto) Baso # (Auto) Neutrophils % (Manual) Band Neutrophils % Lymphocytes % (Manual) Monocytes % (Manual) Platelet Estimate Polychromasia Hypochromasia (manual) Puncture Site pCO2 pO2 HCO3 ABG pH ABG Total CO2 ABG O2 Saturation ABG Base Excess ABG Hemoglobin ABG Carboxyhemoglobin POC ABG HHb (Measured) ABG Methemoglobin Fredi Test A-a O2 Difference Respiratory Index Hgb O2 Saturation FiO2 Sodium Potassium Chloride Carbon Dioxide Anion Gap BUN Creatinine Est GFR ( Amer) Est GFR (Non-Af Amer) POC Glucose (mg/dL) > 500 H* 477 H* Random Glucose Calcium Iron TIBC Total Bilirubin AST ALT Alkaline Phosphatase NT-Pro-B Natriuret Pep Total Protein Albumin Globulin Albumin/Globulin Ratio Lipase Urine Color Yellow Urine Clarity Hazy Urine pH 5.0 Ur Specific [place] 1.018 Urine Protein 1+ H Urine Glucose (UA) 3+ H Urine Ketones 1+ H Urine Blood 2+ H Urine Nitrate Negative Urine Bilirubin Negative Urine Urobilinogen 2.0 H Ur Leukocyte Esterase 3+ H Urine WBC (Auto) 456 H Urine RBC (Auto) 125 H Ur Squamous Epith Cells 27 H Urine Bacteria Mod H B-Hydroxybutyrate 10/07/17 10/07/17 10/07/17 19:59 20:22 22:18 WBC 14.5 H RBC 3.05 L Hgb 8.7 L Hct 27.0 L MCV 88.6 MCH 28.5 MCHC 32.1 L RDW 13.9 Plt Count 294 MPV 8.5 Neut % (Auto) 91.4 H Lymph % (Auto) 3.1 L [place] % (Auto) 4.9 Eos % (Auto) 0.4 Baso % (Auto) 0.2 Neut # (Auto) 13.2 H Lymph # (Auto) 0.5 L [place] # (Auto) 0.7 Eos # (Auto) 0.1 Baso # (Auto) 0.0 Neutrophils % (Manual) Band Neutrophils % Lymphocytes % (Manual) Monocytes % (Manual) Platelet Estimate Polychromasia Hypochromasia (manual) Puncture Site Lra pCO2 31 L pO2 69 L HCO3 20.4 L ABG pH 7.38 ABG Total CO2 19.3 L ABG O2 Saturation 96.0 ABG Base Excess -5.6 L ABG Hemoglobin 15.0 ABG Carboxyhemoglobin 2.5 H POC ABG HHb (Measured) 3.9 ABG Methemoglobin 1.2 Fredi Test Pos A-a O2 Difference 42.0 Respiratory Index 0.6 Hgb O2 Saturation 92.4 L FiO2 21.0 Sodium Potassium Chloride Carbon Dioxide Anion Gap BUN Creatinine Est GFR ( Amer) Est GFR (Non-Af Amer) POC Glucose (mg/dL) > 500 H* Random Glucose Calcium Iron TIBC Total Bilirubin AST ALT Alkaline Phosphatase NT-Pro-B Natriuret Pep Total Protein Albumin Globulin Albumin/Globulin Ratio Lipase Urine Color Urine Clarity Urine pH Ur Specific [place] Urine Protein Urine Glucose (UA) Urine Ketones Urine Blood Urine Nitrate Urine Bilirubin Urine Urobilinogen Ur Leukocyte Esterase Urine WBC (Auto) Urine RBC (Auto) Ur Squamous Epith Cells Urine Bacteria B-Hydroxybutyrate 10/07/17 10/07/17 10/08/17 22:18 23:56 00:44 WBC RBC Hgb Hct MCV MCH MCHC RDW Plt Count MPV Neut % (Auto) Lymph % (Auto) [place] % (Auto) Eos % (Auto) Baso % (Auto) Neut # (Auto) Lymph # (Auto) [place] # (Auto) Eos # (Auto) Baso # (Auto) Neutrophils % (Manual) Band Neutrophils % Lymphocytes % (Manual) Monocytes % (Manual) Platelet Estimate Polychromasia Hypochromasia (manual) Puncture Site pCO2 pO2 HCO3 ABG pH ABG Total CO2 ABG O2 Saturation ABG Base Excess ABG Hemoglobin ABG Carboxyhemoglobin POC ABG HHb (Measured) ABG Methemoglobin Fredi Test A-a O2 Difference Respiratory Index Hgb O2 Saturation FiO2 Sodium 124 L Potassium 5.1 Chloride 90 L Carbon Dioxide 17 L Anion Gap 22 H BUN 23 H Creatinine 1.0 Est GFR ( Amer) > 60 Est GFR (Non-Af Amer) 57 POC Glucose (mg/dL) 472 H* Random Glucose 528 H* Calcium 8.1 L Iron 61 TIBC 391 Total Bilirubin AST ALT Alkaline Phosphatase NT-Pro-B Natriuret Pep Total Protein Albumin Globulin Albumin/Globulin Ratio Lipase Urine Color Urine Clarity Urine pH Ur Specific [place] Urine Protein Urine Glucose (UA) Urine Ketones Urine Blood Urine Nitrate Urine Bilirubin Urine Urobilinogen Ur Leukocyte Esterase Urine WBC (Auto) Urine RBC (Auto) Ur Squamous Epith Cells Urine Bacteria B-Hydroxybutyrate 10/08/17 00:44 WBC RBC Hgb Hct MCV MCH MCHC RDW Plt Count MPV Neut % (Auto) Lymph % (Auto) [place] % (Auto) Eos % (Auto) Baso % (Auto) Neut # (Auto) Lymph # (Auto) [place] # (Auto) Eos # (Auto) Baso # (Auto) Neutrophils % (Manual) Band Neutrophils % Lymphocytes % (Manual) Monocytes % (Manual) Platelet Estimate Polychromasia Hypochromasia (manual) Puncture Site pCO2 pO2 HCO3 ABG pH ABG Total CO2 ABG O2 Saturation ABG Base Excess ABG Hemoglobin ABG Carboxyhemoglobin POC ABG HHb (Measured) ABG Methemoglobin Fredi Test A-a O2 Difference Respiratory Index Hgb O2 Saturation FiO2 Sodium Potassium Chloride Carbon Dioxide Anion Gap BUN Creatinine Est GFR ( Amer) Est GFR (Non-Af Amer) POC Glucose (mg/dL) Random Glucose Calcium Iron TIBC Total Bilirubin AST ALT Alkaline Phosphatase NT-Pro-B Natriuret Pep 59.9 Total Protein Albumin Globulin Albumin/Globulin Ratio Lipase Urine Color Urine Clarity Urine pH Ur Specific [place] Urine Protein Urine Glucose (UA) Urine Ketones Urine Blood Urine Nitrate Urine Bilirubin Urine Urobilinogen Ur Leukocyte Esterase Urine WBC (Auto) Urine RBC (Auto) Ur Squamous Epith Cells Urine Bacteria B-Hydroxybutyrate Assessment & Plan (1) DKA (diabetic ketoacidoses) Assessment and Plan: Secondary to uncontrolled diabetes ICU consult----> Help appreciated BS and B-Hydroxybutyrate on admission: >500 and 4:30, respectively HgbA1C (09/08/17): 13.8, F/U repeat HgbA1c Management: 4 liters of fluid in 8 hours * 2 liters bolus given in the ED * 1/2NS with 20meq @ 250mls/hr, will change to D51/2NS @ 200MLS/hr once BS is between 250-200 * Insulin drip * Accuchecks Q1H * Vital signs Q2H * BMP, Mg and Phosphorus Q8H Status: Acute (2) Uncontrolled diabetes mellitus Assessment and Plan: HgbA1C (09/08/17): 13.8, F/U repeat HgbA1c * Currently on insulin drip for DKA management * Accuchecks Q1H Status: Acute (3) Metabolic acidosis Assessment and Plan: Treat DKA Status: Acute (4) Leukocytosis Assessment and Plan: 2/2 L Pyleonephritis Consult, Dr. Tani Junior---> Help appreciated * Management as per recommendation Imaging: Abdomen/pelvis CT: Prelim report: Obstructing distal left ureteral stone measuring 6mm with mild proximal urinary tract dilation an edematous appearance of the left kidney. Recommend urology consultation. For complete report, please refer to the EMR Medication/Management: * F/u BC and UC * Flomax 0.4mg PO daily * Meropenem 1gm IV q8h ( Based on last admission culture and sensitivity) * Florastor 250mg PO BID Status: Acute (5) Elevated lipase Assessment and Plan: with elevate alkaline phos and T. Bilirubin * Likely 2/2 to DKA, No evidence of acute pancreatitis or cholecytitis noted on imaging Status: Acute (6) History of hypertension Assessment and Plan: Continue home medication: * Cozaar 100mg PO QD * Continue to monitor with vital signs Q2H Status: Acute (7) History of hyperlipidemia Assessment and Plan: Lipid Panel (09/08/17): * TGL: 186, Cholesterol: 156, LDL: 86 and HDL: 24 Crestor 2.5mg PO HS = Home dose of simavastatin 10mg PO HS Status: Acute (8) History of schizophrenia Status: Acute (9) History of psychiatric disorder Assessment and Plan: Schizophrenia and depression Continue home medications: * Risperidone 1mg PO HS * Depakote 500mg PO QD * Zoloft 100mg HS -Valporic acid level Status: Acute (10) History of anemia Assessment and Plan: H/H stable Continue home medication: * Ferrous sulfate 325mg PO QD Status: Acute (11) Prophylactic measure Assessment and Plan: GI: Protonix 20mg PO daily DVT: SCDs, score of 1 NPO except for meds All plans and management discussed with Stewart Moore Status: Acute <Yossi Moore - Last Filed: 10/08/17 06:40> Results - Vital Signs Recent Vital Signs: Last Vital Signs Temp 99 F 10/08/17 06:00 Pulse 98 H 10/08/17 06:27 Resp 19 10/08/17 06:27 BP 133/60 10/08/17 06:27 Pulse Ox 97 10/08/17 06:27 - Labs Result Diagrams: 10/07/17 22:18 10/07/17 22:18 Labs: Laboratory Results - last 24 hr 10/07/17 10/07/17 10/07/17 19:08 19:08 19:08 WBC 17.4 H D RBC 3.50 L Hgb 10.1 L Hct 31.2 L MCV 89.3 D MCH 28.9 MCHC 32.3 L RDW 14.2 Plt Count 390 D MPV 8.8 Neut % (Auto) 93.5 H Lymph % (Auto) 3.1 L [place] % (Auto) 3.0 Eos % (Auto) 0.1 Baso % (Auto) 0.3 Neut # (Auto) 16.3 H Lymph # (Auto) 0.5 L [place] # (Auto) 0.5 Eos # (Auto) 0.0 Baso # (Auto) 0.0 Neutrophils % (Manual) 91 H Band Neutrophils % 4 H Lymphocytes % (Manual) 2 L Monocytes % (Manual) 3 Platelet Estimate Normal Polychromasia Slight Hypochromasia (manual) Slight Puncture Site pCO2 pO2 HCO3 ABG pH ABG Total CO2 ABG O2 Saturation ABG Base Excess ABG Hemoglobin ABG Carboxyhemoglobin POC ABG HHb (Measured) ABG Methemoglobin Fredi Test A-a O2 Difference Respiratory Index Hgb O2 Saturation FiO2 Sodium 123 L Potassium 5.3 H Chloride 84 L Carbon Dioxide 19 L Anion Gap 26 H BUN 26 H Creatinine 1.2 Est GFR ( Amer) 56 Est GFR (Non-Af Amer) 46 POC Glucose (mg/dL) > 500 H* Random Glucose 611 H* D Lactic Acid Calcium 9.2 Iron TIBC Ferritin Total Bilirubin 1.4 H AST 30 ALT 15 Alkaline Phosphatase 377 H D NT-Pro-B Natriuret Pep Total Protein 8.6 H Albumin 3.8 Globulin 4.8 H Albumin/Globulin Ratio 0.8 L Lipase 736 H Urine Color Urine Clarity Urine pH Ur Specific [place] Urine Protein Urine Glucose (UA) Urine Ketones Urine Blood Urine Nitrate Urine Bilirubin Urine Urobilinogen Ur Leukocyte Esterase Urine WBC (Auto) Urine RBC (Auto) Ur Squamous Epith Cells Urine Bacteria Valproic Acid B-Hydroxybutyrate 4.30 H 10/07/17 10/07/17 10/07/17 19:09 19:09 19:57 WBC RBC Hgb Hct MCV MCH MCHC RDW Plt Count MPV Neut % (Auto) Lymph % (Auto) [place] % (Auto) Eos % (Auto) Baso % (Auto) Neut # (Auto) Lymph # (Auto) [place] # (Auto) Eos # (Auto) Baso # (Auto) Neutrophils % (Manual) Band Neutrophils % Lymphocytes % (Manual) Monocytes % (Manual) Platelet Estimate Polychromasia Hypochromasia (manual) Puncture Site pCO2 pO2 HCO3 ABG pH ABG Total CO2 ABG O2 Saturation ABG Base Excess ABG Hemoglobin ABG Carboxyhemoglobin POC ABG HHb (Measured) ABG Methemoglobin Fredi Test A-a O2 Difference Respiratory Index Hgb O2 Saturation FiO2 Sodium Potassium Chloride Carbon Dioxide Anion Gap BUN Creatinine Est GFR ( Amer) Est GFR (Non-Af Amer) POC Glucose (mg/dL) > 500 H* 477 H* Random Glucose Lactic Acid Calcium Iron TIBC Ferritin Total Bilirubin AST ALT Alkaline Phosphatase NT-Pro-B Natriuret Pep Total Protein Albumin Globulin Albumin/Globulin Ratio Lipase Urine Color Yellow Urine Clarity Hazy Urine pH 5.0 Ur Specific [place] 1.018 Urine Protein 1+ H Urine Glucose (UA) 3+ H Urine Ketones 1+ H Urine Blood 2+ H Urine Nitrate Negative Urine Bilirubin Negative Urine Urobilinogen 2.0 H Ur Leukocyte Esterase 3+ H Urine WBC (Auto) 456 H Urine RBC (Auto) 125 H Ur Squamous Epith Cells 27 H Urine Bacteria Mod H Valproic Acid B-Hydroxybutyrate 10/07/17 10/07/17 10/07/17 19:59 20:22 22:18 WBC 14.5 H RBC 3.05 L Hgb 8.7 L Hct 27.0 L MCV 88.6 MCH 28.5 MCHC 32.1 L RDW 13.9 Plt Count 294 MPV 8.5 Neut % (Auto) 91.4 H Lymph % (Auto) 3.1 L [place] % (Auto) 4.9 Eos % (Auto) 0.4 Baso % (Auto) 0.2 Neut # (Auto) 13.2 H Lymph # (Auto) 0.5 L [place] # (Auto) 0.7 Eos # (Auto) 0.1 Baso # (Auto) 0.0 Neutrophils % (Manual) Band Neutrophils % Lymphocytes % (Manual) Monocytes % (Manual) Platelet Estimate Polychromasia Hypochromasia (manual) Puncture Site Lra pCO2 31 L pO2 69 L HCO3 20.4 L ABG pH 7.38 ABG Total CO2 19.3 L ABG O2 Saturation 96.0 ABG Base Excess -5.6 L ABG Hemoglobin 15.0 ABG Carboxyhemoglobin 2.5 H POC ABG HHb (Measured) 3.9 ABG Methemoglobin 1.2 Fredi Test Pos A-a O2 Difference 42.0 Respiratory Index 0.6 Hgb O2 Saturation 92.4 L FiO2 21.0 Sodium Potassium Chloride Carbon Dioxide Anion Gap BUN Creatinine Est GFR ( Amer) Est GFR (Non-Af Amer) POC Glucose (mg/dL) > 500 H* Random Glucose Lactic Acid Calcium Iron TIBC Ferritin Total Bilirubin AST ALT Alkaline Phosphatase NT-Pro-B Natriuret Pep Total Protein Albumin Globulin Albumin/Globulin Ratio Lipase Urine Color Urine Clarity Urine pH Ur Specific [place] Urine Protein Urine Glucose (UA) Urine Ketones Urine Blood Urine Nitrate Urine Bilirubin Urine Urobilinogen Ur Leukocyte Esterase Urine WBC (Auto) Urine RBC (Auto) Ur Squamous Epith Cells Urine Bacteria Valproic Acid B-Hydroxybutyrate 10/07/17 10/07/17 10/08/17 22:18 23:56 00:44 WBC RBC Hgb Hct MCV MCH MCHC RDW Plt Count MPV Neut % (Auto) Lymph % (Auto) [place] % (Auto) Eos % (Auto) Baso % (Auto) Neut # (Auto) Lymph # (Auto) [place] # (Auto) Eos # (Auto) Baso # (Auto) Neutrophils % (Manual) Band Neutrophils % Lymphocytes % (Manual) Monocytes % (Manual) Platelet Estimate Polychromasia Hypochromasia (manual) Puncture Site pCO2 pO2 HCO3 ABG pH ABG Total CO2 ABG O2 Saturation ABG Base Excess ABG Hemoglobin ABG Carboxyhemoglobin POC ABG HHb (Measured) ABG Methemoglobin Fredi Test A-a O2 Difference Respiratory Index Hgb O2 Saturation FiO2 Sodium 124 L Potassium 5.1 Chloride 90 L Carbon Dioxide 17 L Anion Gap 22 H BUN 23 H Creatinine 1.0 Est GFR ( Amer) > 60 Est GFR (Non-Af Amer) 57 POC Glucose (mg/dL) 472 H* Random Glucose 528 H* Lactic Acid Calcium 8.1 L Iron 61 TIBC 391 Ferritin Total Bilirubin AST ALT Alkaline Phosphatase NT-Pro-B Natriuret Pep Total Protein Albumin Globulin Albumin/Globulin Ratio Lipase Urine Color Urine Clarity Urine pH Ur Specific [place] Urine Protein Urine Glucose (UA) Urine Ketones Urine Blood Urine Nitrate Urine Bilirubin Urine Urobilinogen Ur Leukocyte Esterase Urine WBC (Auto) Urine RBC (Auto) Ur Squamous Epith Cells Urine Bacteria Valproic Acid B-Hydroxybutyrate 10/08/17 10/08/17 10/08/17 00:44 01:49 03:09 WBC RBC Hgb Hct MCV MCH MCHC RDW Plt Count MPV Neut % (Auto) Lymph % (Auto) [place] % (Auto) Eos % (Auto) Baso % (Auto) Neut # (Auto) Lymph # (Auto) [place] # (Auto) Eos # (Auto) Baso # (Auto) Neutrophils % (Manual) Band Neutrophils % Lymphocytes % (Manual) Monocytes % (Manual) Platelet Estimate Polychromasia Hypochromasia (manual) Puncture Site pCO2 pO2 HCO3 ABG pH ABG Total CO2 ABG O2 Saturation ABG Base Excess ABG Hemoglobin ABG Carboxyhemoglobin POC ABG HHb (Measured) ABG Methemoglobin Fredi Test A-a O2 Difference Respiratory Index Hgb O2 Saturation FiO2 Sodium Potassium Chloride Carbon Dioxide Anion Gap BUN Creatinine Est GFR ( Amer) Est GFR (Non-Af Amer) POC Glucose (mg/dL) 442 H* 396 H Random Glucose Lactic Acid Calcium Iron TIBC Ferritin 9.6 Total Bilirubin AST ALT Alkaline Phosphatase NT-Pro-B Natriuret Pep 59.9 Total Protein Albumin Globulin Albumin/Globulin Ratio Lipase Urine Color Urine Clarity Urine pH Ur Specific [place] Urine Protein Urine Glucose (UA) Urine Ketones Urine Blood Urine Nitrate Urine Bilirubin Urine Urobilinogen Ur Leukocyte Esterase Urine WBC (Auto) Urine RBC (Auto) Ur Squamous Epith Cells Urine Bacteria Valproic Acid B-Hydroxybutyrate 10/08/17 10/08/17 10/08/17 04:29 04:31 04:31 WBC RBC Hgb Hct MCV MCH MCHC RDW Plt Count MPV Neut % (Auto) Lymph % (Auto) [place] % (Auto) Eos % (Auto) Baso % (Auto) Neut # (Auto) Lymph # (Auto) [place] # (Auto) Eos # (Auto) Baso # (Auto) Neutrophils % (Manual) Band Neutrophils % Lymphocytes % (Manual) Monocytes % (Manual) Platelet Estimate Polychromasia Hypochromasia (manual) Puncture Site pCO2 pO2 HCO3 ABG pH ABG Total CO2 ABG O2 Saturation ABG Base Excess ABG Hemoglobin ABG Carboxyhemoglobin POC ABG HHb (Measured) ABG Methemoglobin Fredi Test A-a O2 Difference Respiratory Index Hgb O2 Saturation FiO2 Sodium Potassium Chloride Carbon Dioxide Anion Gap BUN Creatinine Est GFR ( Amer) Est GFR (Non-Af Amer) POC Glucose (mg/dL) 398 H Random Glucose Lactic Acid 2.1 Calcium Iron TIBC Ferritin Total Bilirubin AST ALT Alkaline Phosphatase NT-Pro-B Natriuret Pep Total Protein Albumin Globulin Albumin/Globulin Ratio Lipase Urine Color Urine Clarity Urine pH Ur Specific [place] Urine Protein Urine Glucose (UA) Urine Ketones Urine Blood Urine Nitrate Urine Bilirubin Urine Urobilinogen Ur Leukocyte Esterase Urine WBC (Auto) Urine RBC (Auto) Ur Squamous Epith Cells Urine Bacteria Valproic Acid B-Hydroxybutyrate 1.19 H 10/08/17 10/08/17 10/08/17 04:31 05:22 06:24 WBC RBC Hgb Hct MCV MCH MCHC RDW Plt Count MPV Neut % (Auto) Lymph % (Auto) [place] % (Auto) Eos % (Auto) Baso % (Auto) Neut # (Auto) Lymph # (Auto) [place] # (Auto) Eos # (Auto) Baso # (Auto) Neutrophils % (Manual) Band Neutrophils % Lymphocytes % (Manual) Monocytes % (Manual) Platelet Estimate Polychromasia Hypochromasia (manual) Puncture Site pCO2 pO2 HCO3 ABG pH ABG Total CO2 ABG O2 Saturation ABG Base Excess ABG Hemoglobin ABG Carboxyhemoglobin POC ABG HHb (Measured) ABG Methemoglobin Frdei Test A-a O2 Difference Respiratory Index Hgb O2 Saturation FiO2 Sodium Potassium Chloride Carbon Dioxide Anion Gap BUN Creatinine Est GFR ( Amer) Est GFR (Non-Af Amer) POC Glucose (mg/dL) 320 H 286 H Random Glucose Lactic Acid Calcium Iron TIBC Ferritin Total Bilirubin AST ALT Alkaline Phosphatase NT-Pro-B Natriuret Pep Total Protein Albumin Globulin Albumin/Globulin Ratio Lipase Urine Color Urine Clarity Urine pH Ur Specific [place] Urine Protein Urine Glucose (UA) Urine Ketones Urine Blood Urine Nitrate Urine Bilirubin Urine Urobilinogen Ur Leukocyte Esterase Urine WBC (Auto) Urine RBC (Auto) Ur Squamous Epith Cells Urine Bacteria Valproic Acid < 10.0 L B-Hydroxybutyrate Attending/Attestation - Attestation I have personally seen and examined this patient.: Yes I have fully participated in the care of the patient.: Yes I have reviewed all pertinent clinical information: Yes Notes (Text): 10/08/17 06:39 Patient was see and examined in the ER with resident Dr. Wilder. History, Exam, Assessment and Plan were gone over with the resident. Yossi Moore D.O.
[2017-10-08] MEDS ORDERED: Potassium Chloride 20 MEQ in Sodium Chloride 0.45% 1,000 ML IV SCH (02:00)
[2017-10-08] MEDS: Sodium Chloride 0.9% 1,000 ML IV SCH ×3 (03:49→23:40)
[2017-10-08] MEDS ORDERED: Insulin Human Regular 100 UNIT in Sodium Chloride 0.9% 99 ML IV SCH (05:00)
[2017-10-08] MEDS ORDERED: Insulin Human Regular 100 UNIT in Sodium Chloride 0.9% 99 ML IV PRN ×2 (05:30→05:41)
--- NOTE | 2017-10-08 05:45 | PCM.SEPTIC ---
Sepsis Progress Note - Reassessment Type Reassessment Type: Non-invasive reassessment - Non Invasive Reassessment Were the most recent vital sign reviewed: Yes Vital Sign (Latest): Temp Pulse Resp BP Pulse Ox 99.1 F 91 H 24 178/80 H 99 10/08/17 03:50 10/08/17 04:00 10/08/17 04:00 10/08/17 03:27 10/08/17 04:00 Cardiovascular: Yes: Regular Rate, Rhythm Respiratory: Yes: Normal Breath Sounds Capillary Refill: Normal (Less than 2 sec) Skin: Normal Color - Invasive Reassessment (complete 2 of 4) Was a Central Venous Pressure Measurement obtained within 6 Hours after the presentation of septic shock: No Was a central venous oxygen measurement obtained within 6 hours after the presentation of septic shock: No Was a passive leg raise performed or was a fluid challenge performed within 6 hrs of the initial fluid bolus: No Fluid Challenge performed: Yes
[2017-10-08] MEDS ORDERED: Meropenem 1 GM in Sodium Chloride 0.9% 100 ML IVPB SCH (06:00)
[2017-10-08] MEDS: Piperacillin/Tazobact 3.375 GM in Sodium Chloride 100 ML IVPB SCH ×2 (06:26→13:53)
[2017-10-08 07:52] LABS: BLOOD UREA NITROGEN 21 mg/dL (7-17); CALCIUM 7.9 mg/dl (8.6-10.4); GFR AFRICAN-AMERICAN > 60; GFR NON-AFRICAN AMERICAN 57
[2017-10-08 07:53] LABS: ALB/GLOB RATIO 0.7 (1.0-2.1); ALBUMIN 2.9 g/dL (3.5-5.0); AST/SGOT 22 U/L (14-36)
[2017-10-08 07:54] LABS: ALT/SGPT 17 U/L (9-52)
--- NOTE | 2017-10-08 09:26 | CP.PCM.PN ---
Subjective - Date & Time of Evaluation Date of Evaluation: 10/08/17 Time of Evaluation: 09:26 - Subjective Subjective: seen and examined by me c/o thirsty,denies abdominal pain,denies back pain,c/p tired Objective - Vital Signs/Intake and Output Vital Signs (last 24 hours): Temp Pulse Resp BP Pulse Ox 99 F 92 H 19 135/64 97 10/08/17 06:00 10/08/17 07:27 10/08/17 07:27 10/08/17 07:27 10/08/17 07:27 Intake and Output: 10/08/17 10/08/17 06:59 18:59 Intake Total 319 106 Output Total 0 0 Balance 319 106 - Medications Medications: Current Medications Divalproex Sodium (Depakote Dr) 500 mg PO DAILY [facility] Famotidine (Pepcid) 20 mg PO DAILY [facility] Ferrous Sulfate (Feosol) 325 mg PO DAILY [facility] Sodium Chloride (Sodium Chloride 0.9%) 1,000 mls @ 100 mls/hr IV .Q10H [facility] Last Admin: 10/08/17 03:49 Dose: 100 mls/hr Insulin Human Regular 100 unit (/ Sodium Chloride) 100 mls @ 8 mls/hr IV .[id number] PRN; Protocol PRN Reason: DKA Last Admin: 10/08/17 06:25 Dose: 6 u/hr, 6 mls/hr Piperacillin Sod/Tazobactam (Sod 3.375 gm/ Sodium Chloride) 100 mls @ 200 mls/ hr IVPB Q6H [facility] PRN Reason: Protocol Last Admin: 10/08/17 06:26 Dose: 200 mls/hr Insulin Human Isoph/Insulin Regular (Novolin 70/30 (70/30 Units/Ml) 10 Ml) 44 units SC ACB [facility] Insulin Human Isoph/Insulin Regular (Novolin 70/30 (70/30 Units/Ml) 10 Ml) 34 units SC ACD [facility] Losartan Potassium (Cozaar) 100 mg PO DAILY [facility] Risperidone (Risperdal Tab) 1 mg PO HS [facility] Rosuvastatin Calcium (Crestor) 2.5 mg PO HS [facility] Saccharomyces Boulardii (Florastor) 250 mg PO Q12H [facility] Sertraline HCl (Zoloft) 100 mg PO HS [facility] Tamsulosin HCl (Flomax) 0.4 mg PO DAILY [facility] - Labs Labs: 10/07/17 22:18 10/08/17 04:31 - Constitutional Appears: Non-toxic - Head Exam Head Exam: NORMAL INSPECTION - Eye Exam Eye Exam: Normal appearance - ENT Exam ENT Exam: Mucous Membranes Moist - Neck Exam Neck Exam: Full ROM - Respiratory Exam Respiratory Exam: Clear to Ausculation Bilateral, NORMAL BREATHING PATTERN - Cardiovascular Exam Cardiovascular Exam: REGULAR RHYTHM - GI/Abdominal Exam GI & Abdominal Exam: Soft, Normal Bowel Sounds. absent: Distended, Guarding, Tenderness - Extremities Exam Extremities Exam: Full ROM - Back Exam Back Exam: NORMAL INSPECTION - Neurological Exam Neurological Exam: Awake, Oriented x3 - Psychiatric Exam Psychiatric exam: Normal Mood - Skin Skin Exam: Dry, Normal Color Assessment and Plan - Assessment and Plan (Free Text) Plan: 1. DKA-resolving Patient last cmp with normal anion gap Resume home insulin continue hydration,follow blood sugar and repeat electrolytes start diet 2.Uncontrolleed DM Last Ha1c 13 Discuss about diet,insulin,blood sugar monitor and clinic follow up 3.UTI CT abd pelvis preliminary report Abdomen/pelvis CT: Obstructing distal left ureteral stone measuring 6mm with mild proximal urinary tract dilation an edematous appearance of the left kidney. Recommend urology consultation. For complete report continue zosyn and follow cultures continue flomax and follow Dr España's recommendation 4.HTN-home meds 5.Schizophrenia-homew meds 6.DVT and GI prophylaxis Just got blood culture positive / gram negative rods. Change back to Merrem.ID consult Dr Wild continue fluids and monitor sugar. d/w RN tolerating diet
[2017-10-08] MEDS: Saccharomyces Boulardi 250 mg Cap PO SCH ×2 (10:11→20:18)
[2017-10-08] MEDS: Divalproex 500 mg DR Tab PO SCH (10:12)
[2017-10-08] MEDS: (Novolin 70/30) NPH/Regular 70/30 Units/ml 10 ml vial SC SCH ×2 (10:12→17:25)
--- NOTE | 2017-10-08 11:21 | RAD ---
HISTORY: DKA and RLL Rhonchi on exam COMPARISON: No prior. TECHNIQUE: Chest PA and lateral FINDINGS: LUNGS: Poor inspiration with low lung volumes, crowded bronchovascular markings and bibasilar atelectasis. Interstitial markings are also increased possibly due to low lung volumes as well. . PLEURA: Questionable tiny right-sided effusion. No pneumothorax apparent. CARDIOVASCULAR: Normal. OSSEOUS STRUCTURES: No significant abnormalities. VISUALIZED UPPER ABDOMEN: Normal. OTHER FINDINGS: None. IMPRESSION: Poor inspiration with low lung volumes, crowded bronchovascular markings and bibasilar atelectasis. Interstitial markings are also increased possibly due to low lung volumes as well. Questionable tiny right-sided effusion.
--- NOTE | 2017-10-08 11:26 | US ---
HISTORY: Right upper quadrant ultrasound COMPARISON: Comparison made with prior study 05/20/[address] scan of the abdomen and pelvis 10/07/2017. TECHNIQUE: Sonographic evaluation of the right upper quadrant of the abdomen. FINDINGS: LIVER: Liver is mildly enlarged measuring 18.1 cm in CC dimension. Liver demonstrates smooth contour though increased echotexture suggesting fatty infiltration ; other infiltrative hepatocellular disease process not excluded. No obvious hepatic mass collection or calcification seen on images presented. No intrahepatic bile duct dilatation. GALLBLADDER: No intraluminal calculi however intraluminal gallbladder sludge noted. No sonographic Dave sign reported. . There does appear to be a small amount of pericholecystic fluid COMMON BILE DUCT: Measures 3.5 mm. No stones. No dilatation. . PANCREAS: Unremarkable as visualized. No mass. No ductal dilatation. . RIGHT KIDNEY: Measures 10.2 x 4.4 x 4.4 cm in length. Normal echogenicity. No calculus, mass, or hydronephrosis. LEFT KIDNEY: Left kidney is enlarged measuring approximately 14.9 x 6.4 x 5.9 cm in length. Normal echogenicity. No calculus, mass, or hydronephrosis. AORTA: No aneurysmal dilatation. IVC: Unremarkable. OTHER FINDINGS: Minimal free fluid right upper quadrant of the abdomen -Morison's pouch. . IMPRESSION: Mild hepatomegaly. Liver exhibits increased echotexture likely secondary to fatty infiltration however other infiltrative hepatocellular disease process not excluded. . Intraluminal gallbladder sludge with suspected minimal pericholecystic fluid. Small amount of free fluid right upper quadrant of the abdomen -Morison's pouch. Enlarged left kidney.
[2017-10-08] MEDS: (Novolin R) Insulin Human Regular 100 units/ml vial SC SCH ×3 (11:53→22:43)
[2017-10-08 15:11] LABS: ALB/GLOB RATIO 0.7 (1.0-2.1); ALBUMIN 2.8 g/dL (3.5-5.0); ALT/SGPT 34 U/L (9-52); AST/SGOT 169 U/L (14-36); BLOOD UREA NITROGEN 18 mg/dL (7-17); CALCIUM 8.1 mg/dl (8.6-10.4); GFR AFRICAN-AMERICAN > 60; GFR NON-AFRICAN AMERICAN 57
--- NOTE | 2017-10-08 17:21 | CT ---
PROCEDURE: CT Abdomen and Pelvis with Oral contrast. HISTORY: Lower abd pain COMPARISON: Comparison made with CT scan abdomen pelvis 09/26/2015. TECHNIQUE: Contiguous helical/transaxial images of the abdomen and pelvis. Oral contrast was administered. No IV contrast given. Coronal and Sagittal reformats generated. This CT exam was performed using one or more of the following dose reduction techniques: Automated exposure control, adjustment of the mA and/or kV according to patient size, and/or use of iterative reconstruction technique. Total exam DLP = 466.26 mGy-cm. FINDINGS: LOWER THORAX: Heart size normal. Small pericardial effusion. Small hiatal hernia with wall thickening of distal esophagus likely due to protrusion of gastric mucosa. Esophagitis not excluded. Suspect minimal left basilar effusion and minimal atelectasis. Mild right basilar atelectasis with questionable trace right-sided effusion. LIVER: . Liver exhibits normal size and attenuation pattern. Trace amount of perihepatic fluid. GALLBLADDER AND BILE DUCTS: There appears to be layering sludge or gravel within the gallbladder lumen mild passive/dependent PANCREAS: Unremarkable. No mass. No ductal dilatation. SPLEEN: Spleen upper limits of normal in size measuring 12.6 cm. No splenic mass collection or calcification. ADRENALS: Mildly enlarged left adrenal gland. KIDNEYS AND URETERS: There is a small 3.5 mm obstructing calculus mid to lower left ureter with [id number] hydronephrosis. Perinephric fluid and infiltration changes. BLADDER: Urinary bladder is physiologically distended. Minimal wall thickening. Correlation with urinalysis recommended. REPRODUCTIVE: Uterus is lobulated and heterogeneous in appearance. Findings could consistent with uterine fibroids. Please refer to prior transvaginal ultrasound report dated 10/23/2013. APPENDIX: Unremarkable. BOWEL: Evaluation of the bowel is somewhat limited due to incomplete opacification. . There are several on mildly distended proximal loops of small bowel possibly representing an ileus. PERITONEUM: Unremarkable. No fluid collection. No free air. Trace perihepatic fluid and small amount of free fluid seen in the pelvis the sac as well LYMPH NODES: Unremarkable. No enlarged lymph nodes. VASCULATURE: Unremarkable. No aortic aneurysm. BONES: Mild multilevel degenerative spondylosis of the lower thoracic and lumbar spine. OTHER FINDINGS: None. IMPRESSION: Small pericardial effusion. Trace amount of perihepatic fluid. Small approximately 3.5 mm obstructing calculus mid distal left ureter. Borderline splenomegaly. Layering sludge or gravel within the gallbladder. Uterine fibroids. There is a small amount of free fluid in the cul de sac. Minimal wall thickening ; correlation with urinalysis to exclude cystitis.
[2017-10-08] MEDS: Meropenem 1 GM in Sodium Chloride 0.9% 100 ML IVPB SCH (22:02)
[2017-10-08] MEDS: Rosuvastatin Calcium 2.5 mg Tab PO SCH (22:03)
[2017-10-08] MEDS: (Novolin N) Insulin Human Isophane (NPH) 100 u/ml 10 ml vial SC SCH (22:04)
[2017-10-09] MEDS: Meropenem 1 GM in Sodium Chloride 0.9% 100 ML IVPB SCH ×3 (05:45→21:36)
[2017-10-09] MEDS: (Novolin 70/30) NPH/Regular 70/30 Units/ml 10 ml vial SC SCH ×2 (08:30→17:43)
[2017-10-09] MEDS: (Novolin R) Insulin Human Regular 100 units/ml vial SC SCH ×4 (08:32→22:50)
[2017-10-09] MEDS: Saccharomyces Boulardi 250 mg Cap PO SCH ×2 (08:33→21:34)
[2017-10-09] MEDS: Sodium Chloride 0.9% 1,000 ML IV SCH ×3 (08:33→21:37)
[2017-10-09 08:42] VITALS: RESP 20
[2017-10-09 08:43] LABS: ALB/GLOB RATIO 0.7 (1.0-2.1); ALT/SGPT 36 U/L (9-52); AST/SGOT 99 U/L (14-36); BLOOD UREA NITROGEN 14 mg/dL (7-17); CALCIUM 8.3 mg/dl (8.6-10.4); GFR AFRICAN-AMERICAN > 60; GFR NON-AFRICAN AMERICAN 51
[2017-10-09] MEDS: Divalproex 500 mg DR Tab PO SCH (09:55)
[2017-10-09 11:22] LABS: BASO % 0.2 % (0.0-2.0); EOS # 0.1 K/uL (0.0-0.7); EOS % 0.9 % (0.0-4.0); HEMOGLOBIN 8.2 g/dL (11.0-16.0); LYMPH # 0.8 K/uL (1.0-4.3); LYMPH % 6.4 % (20.0-40.0); MEAN CELL VOLUME 86.9 fL (81.0-99.0); MEAN CORPUSCULAR HEMOGLOBIN 28.9 pg (27.0-31.0); MEAN CORPUSCULAR HGB CONC 33.3 g/dL (33.0-37.0); MEAN PLATELET VOLUME 8.4 fL (7.2-11.7); MONO # 0.5 K/uL (0.0-0.8); NEUT # 10.4 K/uL (1.8-7.0); NEUT % 88.5 % (50.0-75.0); PLATELET COUNT 300 K/uL (130-400); RBC 2.84 Mil/uL (3.80-5.20); RED CELL DISTRIBUTION WIDTH 14.1 % (11.5-14.5); WHITE BLOOD COUNT 11.8 K/uL (4.8-10.8)
--- NOTE | 2017-10-09 11:55 | CP.PCM.PN ---
<Simona Kyle DO - Last Filed: 10/09/17 11:28> Subjective - Date & Time of Evaluation Date of Evaluation: 10/09/17 Time of Evaluation: 10:30 - Subjective Subjective: Medicine progress note for Dr. Sosa's service: Patient seen and examined. Patient resting in bed comfortably. Patient denies dysuria, fever, or chills. Patient noted to have Tmax 100.7 overnight but patient currently asymptomatic, currently afebrile. Per nursing, patient is not eating well. Patient denies nausea, vomiting, diarrhea, constipation. Objective - Vital Signs/Intake and Output Vital Signs (last 24 hours): Temp Pulse Resp BP Pulse Ox 99.3 F 95 H 20 161/75 H 96 10/09/17 08:00 10/09/17 08:00 10/09/17 08:00 10/09/17 08:00 10/09/17 08:00 Intake and Output: 10/09/17 10/09/17 06:59 18:59 Intake Total 2200 Balance 2200 - Medications Medications: Current Medications Acetaminophen (Tylenol 325mg Tab) 650 mg PO Q6H PRN PRN Reason: Fever >100.4 F Divalproex Sodium (Depakote Dr) 500 mg PO DAILY [facility] Last Admin: 10/09/17 09:55 Dose: 500 mg Famotidine (Pepcid) 20 mg PO DAILY [facility] Last Admin: 10/09/17 09:54 Dose: 20 mg Ferrous Sulfate (Feosol) 325 mg PO DAILY [facility] Last Admin: 10/09/17 09:52 Dose: 325 mg Heparin Sodium (Porcine) (Heparin) 5,000 units SC Q8 [facility] Last Admin: 10/09/17 05:32 Dose: 5,000 units Sodium Chloride (Sodium Chloride 0.9%) 1,000 mls @ 100 mls/hr IV .Q10H [facility] Last Admin: 10/09/17 09:23 Dose: Not Given Insulin Human Regular 100 unit (/ Sodium Chloride) 100 mls @ 8 mls/hr IV .[id number] PRN; Protocol PRN Reason: DKA Last Admin: 10/08/17 06:25 Dose: 6 u/hr, 6 mls/hr Meropenem 1 gm/ Sodium (Chloride) 100 mls @ 100 mls/hr IVPB Q8 [facility] PRN Reason: Protocol Last Admin: 10/09/17 05:45 Dose: 100 mls/hr Insulin Human Isoph/Insulin Regular (Novolin 70/30 (70/30 Units/Ml) 10 Ml) 44 units SC ACB [facility] Last Admin: 10/09/17 08:30 Dose: 44 units Insulin Human Isoph/Insulin Regular (Novolin 70/30 (70/30 Units/Ml) 10 Ml) 34 units SC ACD [facility] Last Admin: 10/08/17 17:25 Dose: 34 units Insulin Human NPH (Novolin N) 12 unit SC HS [facility] Last Admin: 10/08/17 22:04 Dose: 12 u Insulin Human Regular (Novolin R) 0 unit SC ACHS [facility] PRN Reason: Protocol Last Admin: 10/09/17 08:32 Dose: 2 u Losartan Potassium (Cozaar) 100 mg PO DAILY [facility] Last Admin: 10/09/17 09:52 Dose: 100 mg Risperidone (Risperdal Tab) 1 mg PO [facility] Last Admin: 10/08/17 23:48 Dose: 1 mg Rosuvastatin Calcium (Crestor) 2.5 mg PO [facility] Last Admin: 10/08/17 22:03 Dose: 2.5 mg Saccharomyces Boulardii (Florastor) 250 mg PO Q12H [facility] Last Admin: 10/09/17 08:33 Dose: 250 mg Sertraline HCl (Zoloft) 100 mg PO [facility] Last Admin: 10/08/17 23:55 Dose: 100 mg Tamsulosin HCl (Flomax) 0.4 mg PO DAILY [facility] Last Admin: 10/09/17 09:54 Dose: 0.4 mg - Labs Labs: 10/09/17 11:16 10/09/17 07:59 - Constitutional Appears: Non-toxic, No Acute Distress - Head Exam Head Exam: ATRAUMATIC, NORMOCEPHALIC - Eye Exam Eye Exam: EOMI - ENT Exam ENT Exam: Mucous Membranes Moist - Respiratory Exam Respiratory Exam: Clear to Ausculation Bilateral - Cardiovascular Exam Cardiovascular Exam: +S1, +S2 - GI/Abdominal Exam GI & Abdominal Exam: Soft, Normal Bowel Sounds. absent: Tenderness - Extremities Exam Extremities Exam: Normal Inspection. absent: Pedal Edema - Back Exam Back Exam: absent: CVA tenderness (L), CVA tenderness (R) - Neurological Exam Neurological Exam: Alert, Awake - Skin Skin Exam: Warm Assessment and Plan - Assessment and Plan (Free Text) Assessment: 1. Uncontrolled DM Patient admitted with DKA anion gap currently 13 (with consideration of lower albumin) Hba1c 13.8 09/08/17 Discuss about diet,insulin,blood sugar monitor and clinic follow up Insulin NPH 44 units SC ACB Insulin NPH 34 units SC ACD Novolin N 12 units SC HS ISS 2. Bacteremia Tmax 100.7 overnight, afebrile currently will continue to monitor blood culture with GNR, will follow for final report urine culture with E. coli sensitive to meropenem will repeat culture tomorrow 3.UTI change antibiotics to Meropenem on 10/08 Urine culture positive for E. coli (not ESBL) repeat urine culture tomorrow 4. Obstructing ureteral stone Abdomen/pelvis CT: Obstructing distal left ureteral stone measuring 6mm with mild proximal urinary tract dilation an edematous appearance of the left kidney. Recommend urology consultation. (see complete report) continue flomax 0.4mg PO daily Dr. Mode Junior consulted, help appreciated 5.HTN losartan 100mg PO daily 6. Anemia continue feosol 325mg PO daily 7.Schizophrenia depakote 500mg PO daily risperidone 1mg PO HS zoloft 100mg PO HS 8. Hyperlipidemia Lipid Panel (09/08/17): * TGL: 186, Cholesterol: 156, LDL: 86 and HDL: 24 Crestor 2.5mg PO HS = Home dose of simavastatin 10mg PO HS 9. Prophylactic measure sc heparin 5000u q8h pepcid 20mg PO daily <Abril Sosa V - Last Filed: 10/09/17 17:10> Objective - Vital Signs/Intake and Output Vital Signs (last 24 hours): Temp Pulse Resp BP Pulse Ox 99.0 F 90 20 161/77 H 98 10/09/17 16:00 10/09/17 16:00 10/09/17 16:00 10/09/17 16:00 10/09/17 16:00 Intake and Output: 10/09/17 10/09/17 06:59 18:59 Intake Total 2200 Balance 2200 - Medications Medications: Current Medications Acetaminophen (Tylenol 325mg Tab) 650 mg PO Q6H PRN PRN Reason: Fever >100.4 F Divalproex Sodium (Depakote Dr) 500 mg PO DAILY [facility] Last Admin: 10/09/17 09:55 Dose: 500 mg Famotidine (Pepcid) 20 mg PO DAILY [facility] Last Admin: 10/09/17 09:54 Dose: 20 mg Ferrous Sulfate (Feosol) 325 mg PO DAILY [facility] Last Admin: 10/09/17 09:52 Dose: 325 mg Heparin Sodium (Porcine) (Heparin) 5,000 units SC Q8 [facility] Last Admin: 10/09/17 13:58 Dose: 5,000 units Sodium Chloride (Sodium Chloride 0.9%) 1,000 mls @ 100 mls/hr IV .Q10H [facility] Last Admin: 10/09/17 09:23 Dose: Not Given Insulin Human Regular 100 unit (/ Sodium Chloride) 100 mls @ 8 mls/hr IV .[id number] PRN; Protocol PRN Reason: DKA Last Admin: 10/08/17 06:25 Dose: 6 u/hr, 6 mls/hr Meropenem 1 gm/ Sodium (Chloride) 100 mls @ 100 mls/hr IVPB Q8 [facility] PRN Reason: Protocol Last Admin: 10/09/17 13:57 Dose: 100 mls/hr Insulin Human Isoph/Insulin Regular (Novolin 70/30 (70/30 Units/Ml) 10 Ml) 44 units SC ACB [facility] Last Admin: 10/09/17 08:30 Dose: 44 units Insulin Human Isoph/Insulin Regular (Novolin 70/30 (70/30 Units/Ml) 10 Ml) 34 units SC ACD [facility] Last Admin: 10/08/17 17:25 Dose: 34 units Insulin Human NPH (Novolin N) 12 unit SC HS [facility] Last Admin: 10/08/17 22:04 Dose: 12 u Insulin Human Regular (Novolin R) 0 unit SC ACHS [facility] PRN Reason: Protocol Last Admin: 10/09/17 12:31 Dose: Not Given Losartan Potassium (Cozaar) 100 mg PO DAILY [facility] Last Admin: 10/09/17 09:52 Dose: 100 mg Risperidone (Risperdal Tab) 1 mg PO HS [facility] Last Admin: 10/08/17 23:48 Dose: 1 mg Rosuvastatin Calcium (Crestor) 2.5 mg PO HS [facility] Last Admin: 10/08/17 22:03 Dose: 2.5 mg Saccharomyces Boulardii (Florastor) 250 mg PO Q12H [facility] Last Admin: 10/09/17 08:33 Dose: 250 mg Sertraline HCl (Zoloft) 100 mg PO HS [facility] Last Admin: 10/08/17 23:55 Dose: 100 mg Tamsulosin HCl (Flomax) 0.4 mg PO DAILY [facility] Last Admin: 10/09/17 09:54 Dose: 0.4 mg - Labs Labs: 10/09/17 11:16 10/09/17 07:59 Attending/Attestation - Attestation I have personally seen and examined this patient.: Yes I have fully participated in the care of the patient.: Yes I have reviewed all pertinent clinical information, including history, physical exam and plan: Yes Notes (Text): Patient seen, examined and case discussed with nurses medical assistants phlebotomists. Patient is known to me from last hospitalization wherein she left against medical advice. Patient at time of AMA was discharged with insulin since she could not afford it. Patient admitted to the ICU, and transferred out on 10/08/17. Patient is on IV abx for UTI, bacteremia; will order echo r/o vegetations. We will need to f/u with urology given obstructing left renal calculi noted on CT scan in light of positive UTI. Will repeat cultures tomorrow given white count is improving. We will need case and social work assistance since patient is running low on insulin at home and was only able to receive it when she left AMA last visit. Assessment/plan (1) DKA (diabetic ketoacidoses) Uncontrolled diabetes type insulin dependent Assessment and Plan: * Admitted and stabilized from the ICU on 10/08/17 * Novolin 70/30 44 units subqACB * Novolin 70/30 34 units subqACD * Novolin N 12 unit subqHS * Regular insulin subq sliding scale * Accuchecks QAC and HS * Cozaar 100mg PO daily * Crestor 2.5mg PO qHS Status: Acute (2) Uncontrolled diabetes mellitus Assessment and Plan: * HgbA1C (09/08/17): 13.8-->will repeat a1c; unclear how accurate 10/08/17 value is * Accuchecks QAC and HS Status: Acute (3) Metabolic acidosis Assessment and Plan: * Resolved; see #1 Status: Acute (4) Pyleonephritis Bacteremia Obstructing Left Renal Calculi Assessment and Plan: * Infectious Disease (Dr. Wild) on case-->help appreciated * Urology (Dr. Lex Junior) on the case-->help appreciated * Pending evaluation * NS 100cc/hr * Flomax 0.4mg PO daily * Urine (10/07/17): E. coli * Blood cultures (10/08/17): gram negative yash X2 * Abdomen/pelvis CT (10/08/17): small pericardial effusion. Trace amount of perihepatic fluid. Small approximately 3.5mm obstructing calculus mid distal left ureter. Borderline splenomegaly. Layering sludge or gravel within the gallbladder. Uterine fibroids. Small amount of free fluid in cul de sac. Minimal wall thickening Obstructing distal left ureteral stone measuring 6mm with mild proximal urinary tract dilation an edematous appearance of the left kidney. * Abdominal/Bladder US (10/08/17): mild hepatomegaly. liver exhibits increased echotexture likely secondary to fatty infiltration and intraluminal gallbladder sludge with suspected minimal pericholecystic fluid. Small amount of free fluid right upper quadrant of the abdomen. Enlarged left kidney. Medication/Management: * Meropenem 1gm IV q8h (active since 10/08/17) * Florastor 250mg PO BID Status: Acute (5) History of hypertension Assessment and Plan: Continue home medication: * Cozaar 100mg PO QD Status: Acute (6) History of hyperlipidemia Assessment and Plan: Lipid Panel (09/08/17): * TGL: 186, Cholesterol: 156, LDL: 86 and HDL: 24 Crestor 2.5mg PO HS = Home dose of simavastatin 10mg PO HS Status: Acute (7) History of schizophrenia Status: Acute (8) History of psychiatric disorder Assessment and Plan: Schizophrenia and depression Continue home medications: * Risperidone 1mg PO HS * Depakote 500mg PO QD * Zoloft 100mg HS Status: Acute (9) History of anemia Assessment and Plan: * Downtrending; unclear if dilutional or not * Check iron studies, reti count, b12, folate, haptoglobin * Ferrous sulfate 325mg PO QD Status: Acute (10) Prophylactic measure Assessment and Plan: * GI: Protonix 20mg PO daily * DVT: SCDs, score of 1 * NS 100cc/hr
[2017-10-09 12:16] LABS: BANDS 4 % (0-2); EOSINOPHIL 1 % (0-4); LYMPHOCYTE 8 % (20-40); MONOCYTE 5 % (0-10); NEUTROPHIL 82 % (50-75); TOTAL CELLS COUNTED 100
[2017-10-09 12:17] LABS: PLATELET ESTIMATE NORMAL (NORMAL)
[2017-10-09 12:20] LABS: ANISOCYTOSIS SLIGHT
[2017-10-09 12:21] LABS: HYPOCHROMIC SLIGHT; LARGE PLATELETS PRESENT
[2017-10-09 12:22] LABS: POLYCHROMIC SLIGHT
--- NOTE | 2017-10-09 13:59 | CP.PCM.CON ---
History of Present Illness - History of Present Illness History of Present Illness: 57 year old female presents to the clinic with complaints of diffuse abdominal pain that started 2-3 days ago. Patient reports associated symptoms of diarrhea , nausea, subjective fever, chills, polydipsia, polyuria. Patient's last admission was 09/08/17 for diabetic ketoacidosis and metabolic acidosis with an anion gap of 31 and was also found to be bacteremic. However, patient left against medical advice on day 5 of admission without finishing antibiotic course. ID CONSULTED FOR ANTIBIOTIC MANAGEMENT Past medical history: HTN, HLD, DM, schizophrenia Past surgical history: tubal ligation, colonoscopy Medications: Depakote 250mg PO BID, Metformin 500mg BID; Sertraline 100mg HS; Risperidone 1mg HS; Losartan Potassium 100mg daily; Simvastatin 10mg HS, Ferrous sulfate 325mg PO daily, Glimepiride 4mg PO daily, Insulin 70/30 44 units SC daily with breakfast, Insulin 70/30 34 units SC daily with dinner Allergies: NKDA Family history: denies family history of cardiac disease; family history of DM ( sister, brother); history of cancer (father- "back", mother- colon, sister- breast) Social history: denies tobacco/alcohol/drug use; 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 absent: Headache, Increased Appetite - EENT Eyes: absent: Blurred Vision, Change in Vision Ears: absent: Dizziness Nose/Mouth/Throat: absent: Nasal Congestion - Cardiovascular Cardiovascular: absent: Chest Pain, Diaphoresis, Dyspnea, Lightheadedness, Palpitations - Respiratory Respiratory: absent: Dyspnea - Gastrointestinal Gastrointestinal: Abdominal Pain, Diarrhea, Nausea. absent: Constipation, Vomiting - Genitourinary Genitourinary: Urinary Frequency. absent: Dysuria, Hematuria, Urinary Incontinence - Musculoskeletal Musculoskeletal: absent: Back Pain, Joint Swelling, Limited Range of Motion - Neurological Neurological: absent: Abnormal Gait, Confusion, Dizziness, Headaches, Lack of Coordination, Paresthesias, Weakness - Endocrine Endocrine: Fatigue, Polydipsia, Polyuria. absent: Palpitations, Polyphagia Past Patient History - Infectious Disease Hx of Infectious Diseases: None - Past Medical History & Family History Past Medical History?: Yes - Past Social History Smoking Status: Never Smoked - CARDIAC Hx Hypercholesterolemia: Yes Hx Hypertension: Yes - PULMONARY Hx Respiratory Disorders: No - NEUROLOGICAL Hx Neurological Disorder: No - HEENT Hx HEENT Problems: No - RENAL Hx Chronic Kidney Disease: No - ENDOCRINE/METABOLIC Hx Diabetes Mellitus Type 2: Yes - HEMATOLOGICAL/ONCOLOGICAL Hx Blood Disorders: No - INTEGUMENTARY Hx Dermatological Problems: No - MUSCULOSKELETAL/RHEUMATOLOGICAL Hx Arthritis: Yes (L SH) - GASTROINTESTINAL Hx Diverticulitis: No - GENITOURINARY/GYNECOLOGICAL Hx Genitourinary Disorders: Yes Hx Urinary Tract Infection: Yes - PSYCHIATRIC Hx Depression: Yes Hx Schizophrenia: Yes Hx Substance Use: No - SURGICAL HISTORY Hx Surgeries: Yes Hx Tubal Ligation: Yes Other/Comment: ;fibroids removed - ANESTHESIA Hx Anesthesia: Yes Hx Anesthesia Reactions: No Meds Allergies/Adverse Reactions: Allergies Allergy/AdvReac Type Severity Reaction Status Date / Time No Known Allergies Allergy Verified 10/07/17 18:29 - Medications Medications: Current Medications Acetaminophen (Tylenol 325mg Tab) 650 mg PO Q6H PRN PRN Reason: Fever >100.4 F Divalproex Sodium (Depakote Dr) 500 mg PO DAILY [facility] Last Admin: 10/09/17 09:55 Dose: 500 mg Famotidine (Pepcid) 20 mg PO DAILY [facility] Last Admin: 10/09/17 09:54 Dose: 20 mg Ferrous Sulfate (Feosol) 325 mg PO DAILY [facility] Last Admin: 10/09/17 09:52 Dose: 325 mg Heparin Sodium (Porcine) (Heparin) 5,000 units SC Q8 [facility] Last Admin: 10/09/17 05:32 Dose: 5,000 units Sodium Chloride (Sodium Chloride 0.9%) 1,000 mls @ 100 mls/hr IV .Q10H [facility] Last Admin: 10/09/17 09:23 Dose: Not Given Insulin Human Regular 100 unit (/ Sodium Chloride) 100 mls @ 8 mls/hr IV .[id number] PRN; Protocol PRN Reason: DKA Last Admin: 10/08/17 06:25 Dose: 6 u/hr, 6 mls/hr Meropenem 1 gm/ Sodium (Chloride) 100 mls @ 100 mls/hr IVPB Q8 [facility] PRN Reason: Protocol Last Admin: 10/09/17 05:45 Dose: 100 mls/hr Insulin Human Isoph/Insulin Regular (Novolin 70/30 (70/30 Units/Ml) 10 Ml) 44 units SC ACB [facility] Last Admin: 10/09/17 08:30 Dose: 44 units Insulin Human Isoph/Insulin Regular (Novolin 70/30 (70/30 Units/Ml) 10 Ml) 34 units SC ACD [facility] Last Admin: 10/08/17 17:25 Dose: 34 units Insulin Human NPH (Novolin N) 12 unit SC HS [facility] Last Admin: 10/08/17 22:04 Dose: 12 u Insulin Human Regular (Novolin R) 0 unit SC ACHS [facility] PRN Reason: Protocol Last Admin: 10/09/17 12:31 Dose: Not Given Losartan Potassium (Cozaar) 100 mg PO DAILY [facility] Last Admin: 10/09/17 09:52 Dose: 100 mg Risperidone (Risperdal Tab) [address] [facility] Last Admin: 10/08/17 23:48 Dose: 1 mg Rosuvastatin Calcium (Crestor) 2.[address] [facility] Last Admin: 10/08/17 22:03 Dose: 2.5 mg Saccharomyces Boulardii (Florastor) 250 mg PO Q12H [facility] Last Admin: 10/09/17 08:33 Dose: 250 mg Sertraline HCl (Zoloft) [address] [facility] Last Admin: 10/08/17 23:55 Dose: 100 mg Tamsulosin HCl (Flomax) 0.4 mg PO DAILY [facility] Last Admin: 10/09/17 09:54 Dose: 0.4 mg Physical Exam - Constitutional Appears: No Acute Distress, Chronically Ill - Head Exam Head Exam: ATRAUMATIC, NORMOCEPHALIC - Eye Exam Eye Exam: absent: Scleral icterus - ENT Exam ENT Exam: Mucous Membranes Dry, Normal External Ear Exam - Neck Exam Neck exam: Negative for: Lymphadenopathy - Respiratory Exam Respiratory Exam: Decreased Breath Sounds, Clear to Auscultation Bilateral - Cardiovascular Exam Cardiovascular Exam: REGULAR RHYTHM, +S1, +S2 - GI/Abdominal Exam GI & Abdominal Exam: Diminished Bowel Sounds, Distended, Soft. absent: Guarding , Rebound, Rigid, Tenderness - Rectal Exam Rectal Exam: Deferred - Exam Exam: NORMAL INSPECTION - Extremities Exam Extremities exam: Positive for: pedal pulses present. Negative for: calf tenderness, pedal edema, tenderness - Back Exam Back exam: absent: CVA tenderness (L), CVA tenderness (R), paraspinal tenderness - Neurological Exam Neurological exam: Alert, CN II-XII Intact, Oriented x3, Reflexes Normal - Psychiatric Exam Psychiatric exam: Normal Mood - Skin Skin Exam: Dry, Intact Results - Vital Signs Recent Vital Signs: Last Vital Signs Temp 99.3 F 10/09/17 08:00 Pulse 95 H 10/09/17 08:00 Resp 20 10/09/17 08:00 BP 161/75 H 10/09/17 08:00 Pulse Ox 96 10/09/17 08:00 - Labs Result Diagrams: 10/09/17 11:16 10/09/17 07:59 Labs: Laboratory Results - last 24 hr 10/08/17 10/08/17 10/08/17 00:44 14:39 16:22 WBC RBC Hgb Hct MCV MCH MCHC RDW Plt Count MPV Neut % (Auto) Lymph % (Auto) [place] % (Auto) Eos % (Auto) Baso % (Auto) Neut # (Auto) Lymph # (Auto) [place] # (Auto) Eos # (Auto) Baso # (Auto) Neutrophils % (Manual) Band Neutrophils % Lymphocytes % (Manual) Monocytes % (Manual) Eosinophils % (Manual) Platelet Estimate Large Platelets Polychromasia Hypochromasia (manual) Anisocytosis (manual) Sodium 130 L Potassium 4.0 Chloride 98 Carbon Dioxide 22 Anion Gap 13 BUN 18 H Creatinine 1.0 Est GFR ( Amer) > 60 Est GFR (Non-Af Amer) 57 POC Glucose (mg/dL) 250 H Random Glucose 193 H Hemoglobin A1c 5.7 Calcium 8.1 L Phosphorus 1.7 L Magnesium 1.9 Iron Ferritin Total Bilirubin 0.8 AST 169 H D ALT 34 Alkaline Phosphatase 407 H D Total Protein 6.8 Albumin 2.8 L Globulin 4.0 H Albumin/Globulin Ratio 0.7 L 10/08/17 10/09/17 10/09/17 21:37 06:58 07:59 WBC RBC Hgb Hct MCV MCH MCHC RDW Plt Count MPV Neut % (Auto) Lymph % (Auto) [place] % (Auto) Eos % (Auto) Baso % (Auto) Neut # (Auto) Lymph # (Auto) [place] # (Auto) Eos # (Auto) Baso # (Auto) Neutrophils % (Manual) Band Neutrophils % Lymphocytes % (Manual) Monocytes % (Manual) Eosinophils % (Manual) Platelet Estimate Large Platelets Polychromasia Hypochromasia (manual) Anisocytosis (manual) Sodium 133 Potassium 4.2 Chloride 100 Carbon Dioxide 23 Anion Gap 15 BUN 14 Creatinine 1.1 Est GFR ( Amer) > 60 Est GFR (Non-Af Amer) 51 POC Glucose (mg/dL) 146 H 181 H Random Glucose 212 H Hemoglobin A1c Calcium 8.3 L Phosphorus Magnesium 2.1 Iron Ferritin 727.0 Total Bilirubin 1.0 AST 99 H D ALT 36 Alkaline Phosphatase 450 H Total Protein 7.3 Albumin 3.0 L Globulin 4.4 H Albumin/Globulin Ratio 0.7 L 10/09/17 10/09/17 10/09/17 07:59 11:16 11:34 WBC 11.8 H RBC 2.84 L Hgb 8.2 L Hct 24.7 L MCV 86.9 MCH 28.9 MCHC 33.3 RDW 14.1 Plt Count 300 MPV 8.4 Neut % (Auto) 88.5 H Lymph % (Auto) 6.4 L [place] % (Auto) 4.0 Eos % (Auto) 0.9 Baso % (Auto) 0.2 Neut # (Auto) 10.4 H Lymph # (Auto) 0.8 L [place] # (Auto) 0.5 Eos # (Auto) 0.1 Baso # (Auto) 0.0 Neutrophils % (Manual) 82 H Band Neutrophils % 4 H Lymphocytes % (Manual) 8 L Monocytes % (Manual) 5 Eosinophils % (Manual) 1 Platelet Estimate Normal Large Platelets Present Polychromasia Slight Hypochromasia (manual) Slight Anisocytosis (manual) Slight Sodium Potassium Chloride Carbon Dioxide Anion Gap BUN Creatinine Est GFR ( Amer) Est GFR (Non-Af Amer) POC Glucose (mg/dL) 199 H Random Glucose Hemoglobin A1c Calcium Phosphorus Magnesium Iron 18 L Ferritin Total Bilirubin AST ALT Alkaline Phosphatase Total Protein Albumin Globulin Albumin/Globulin Ratio Assessment & Plan (1) Diabetic acetonemia Status: Acute (2) History of schizophrenia Status: Acute (3) Leukocytosis Status: Acute (4) Metabolic acidosis Status: Acute (5) Pyelonephritis Status: Acute Priority: High (6) Uncontrolled diabetes mellitus Status: Acute - Assessment and Plan (Free Text) Assessment: CONT RX FOR PYELONEPHRITIS FOR MIN 14 DAYS CONSIDER SWITHCH TO ROCEPHIN 2 G IV DAILY NEEDS EVAL FOR STONE MANAGEMENT
[2017-10-09 20:28] LABS: IRON < 10 ug/dL (37-170)
[2017-10-09 20:39] LABS: TOTAL IRON BINDING CAPACITY 187 ug/dL (250-450)
[2017-10-09 20:52] LABS: % IRON SATURATION 5.3 (20-55)
[2017-10-09 21:30] LABS: FOLATE 8.8 ng/mL
[2017-10-09] MEDS: Rosuvastatin Calcium 2.5 mg Tab PO SCH (21:34)
[2017-10-09] MEDS: (Novolin N) Insulin Human Isophane (NPH) 100 u/ml 10 ml vial SC SCH (21:35)
[2017-10-10] MEDS: Sodium Chloride 0.9% 1,000 ML IV SCH ×2 (02:38→16:30)
[2017-10-10] MEDS: Meropenem 1 GM in Sodium Chloride 0.9% 100 ML IVPB SCH ×3 (05:20→21:18)
[2017-10-10] MEDS: (Novolin R) Insulin Human Regular 100 units/ml vial SC SCH ×4 (07:31→21:17)
[2017-10-10 08:07] LABS: BASO # 0.1 K/uL (0.0-0.2); BASO % 0.5 % (0.0-2.0); EOS # 0.1 K/uL (0.0-0.7); HEMOGLOBIN 7.9 g/dL (11.0-16.0); LYMPH # 0.7 K/uL (1.0-4.3); LYMPH % 7.5 % (20.0-40.0); MEAN CELL VOLUME 86.9 fL (81.0-99.0); MEAN CORPUSCULAR HGB CONC 34.5 g/dL (33.0-37.0); MEAN PLATELET VOLUME 8.5 fL (7.2-11.7); MONO # 0.4 K/uL (0.0-0.8); MONO % 4.2 % (0.0-10.0); NEUT % 86.8 % (50.0-75.0); PLATELET COUNT 296 K/uL (130-400); RBC 2.63 Mil/uL (3.80-5.20); RED CELL DISTRIBUTION WIDTH 14.4 % (11.5-14.5); WHITE BLOOD COUNT 9.2 K/uL (4.8-10.8)
[2017-10-10] MEDS: Saccharomyces Boulardi 250 mg Cap PO SCH ×2 (08:08→21:17)
[2017-10-10 08:21] LABS: ALB/GLOB RATIO 0.7 (1.0-2.1); ALBUMIN 2.7 g/dL (3.5-5.0); ALT/SGPT 29 U/L (9-52); AST/SGOT 40 U/L (14-36); BLOOD UREA NITROGEN 10 mg/dL (7-17); CALCIUM 7.9 mg/dl (8.6-10.4); GFR AFRICAN-AMERICAN > 60; GFR NON-AFRICAN AMERICAN > 60
[2017-10-10] MEDS: (Novolin 70/30) NPH/Regular 70/30 Units/ml 10 ml vial SC SCH ×2 (09:37→17:37)
[2017-10-10] MEDS: Divalproex 500 mg DR Tab PO SCH (10:01)
[2017-10-10 10:20] LABS: BANDS 8 % (0-2); BASOPHIL 1 % (0-2); EOSINOPHIL 1 % (0-4); LYMPHOCYTE 7 % (20-40); MONOCYTE 4 % (0-10); NEUTROPHIL 79 % (50-75); PLATELET ESTIMATE NORMAL (NORMAL); TOTAL CELLS COUNTED 100
[2017-10-10 10:21] LABS: HYPOCHROMIC SLIGHT
--- NOTE | 2017-10-10 11:50 | CP.PCM.PN ---
Subjective - Date & Time of Evaluation Date of Evaluation: 10/10/17 Time of Evaluation: 10:00 - Subjective Subjective: no fever or abd pain Objective - Vital Signs/Intake and Output Vital Signs (last 24 hours): Temp Pulse Resp BP Pulse Ox 98.6 F 87 20 166/83 H 97 10/10/17 08:00 10/10/17 11:32 10/10/17 11:32 10/10/17 11:32 10/10/17 11:32 Intake and Output: 10/10/17 10/10/17 06:59 18:59 Intake Total 1280 1050 Balance 1280 1050 - Medications Medications: Current Medications Acetaminophen (Tylenol 325mg Tab) 650 mg PO Q6H PRN PRN Reason: Fever >100.4 F Divalproex Sodium (Depakote Dr) 500 mg PO DAILY [facility] Last Admin: 10/10/17 10:01 Dose: 500 mg Famotidine (Pepcid) 20 mg PO DAILY [facility] Last Admin: 10/10/17 09:30 Dose: 20 mg Ferrous Sulfate (Feosol) 325 mg PO DAILY [facility] Last Admin: 10/10/17 09:30 Dose: 325 mg Heparin Sodium (Porcine) (Heparin) 5,000 units SC Q8 [facility] Last Admin: 10/10/17 05:32 Dose: 5,000 units Sodium Chloride (Sodium Chloride 0.9%) 1,000 mls @ 100 mls/hr IV .Q10H [facility] Last Admin: 10/10/17 02:38 Dose: 100 mls/hr Meropenem 1 gm/ Sodium (Chloride) 100 mls @ 100 mls/hr IVPB Q8 [facility] PRN Reason: Protocol Last Admin: 10/10/17 05:20 Dose: 100 mls/hr Insulin Human Isoph/Insulin Regular (Novolin 70/30 (70/30 Units/Ml) 10 Ml) 44 units SC ACB [facility] Last Admin: 10/10/17 09:37 Dose: Not Given Insulin Human Isoph/Insulin Regular (Novolin 70/30 (70/30 Units/Ml) 10 Ml) 34 units SC ACD [facility] Last Admin: 10/09/17 17:43 Dose: 34 units Insulin Human NPH (Novolin N) 12 unit SC HS [facility] Last Admin: 10/09/17 21:35 Dose: 12 u Insulin Human Regular (Novolin R) 0 unit SC ACHS [facility] PRN Reason: Protocol Last Admin: 10/10/17 07:31 Dose: 2 unit Losartan Potassium (Cozaar) 100 mg PO DAILY [facility] Last Admin: 10/10/17 08:50 Dose: 100 mg Risperidone (Risperdal Tab) 1 mg PO [facility] Last Admin: 10/09/17 21:34 Dose: 1 mg Rosuvastatin Calcium (Crestor) 2.5 mg PO HS [facility] Last Admin: 10/09/17 21:34 Dose: 2.5 mg Saccharomyces Boulardii (Florastor) 250 mg PO Q12H [facility] Last Admin: 10/10/17 08:08 Dose: 250 mg Sertraline HCl (Zoloft) 100 mg PO [facility] Last Admin: 10/09/17 21:34 Dose: 100 mg Tamsulosin HCl (Flomax) 0.4 mg PO DAILY [facility] Last Admin: 10/10/17 09:30 Dose: 0.4 mg - Labs Labs: 10/10/17 07:57 10/10/17 07:57 - Constitutional Appears: Non-toxic, Chronically Ill - Head Exam Head Exam: NORMOCEPHALIC - Eye Exam Eye Exam: PERRL - ENT Exam ENT Exam: Mucous Membranes Dry - Neck Exam Neck Exam: absent: Lymphadenopathy - Respiratory Exam Respiratory Exam: Decreased Breath Sounds - Cardiovascular Exam Cardiovascular Exam: REGULAR RHYTHM, +S1, +S2 - GI/Abdominal Exam GI & Abdominal Exam: Distended - Rectal Exam Rectal Exam: Deferred - Exam Exam: NORMAL INSPECTION - Extremities Exam Extremities Exam: absent: Pedal Edema - Back Exam Back Exam: absent: CVA tenderness (L), CVA tenderness (R) Assessment and Plan (1) Diabetic acetonemia Status: Acute (2) History of schizophrenia Status: Acute (3) Leukocytosis Status: Acute (4) Metabolic acidosis Status: Acute (5) Pyelonephritis Status: Acute (6) Uncontrolled diabetes mellitus Status: Acute - Assessment and Plan (Free Text) Assessment: cont iv then po antibiotics - consider IV rocephin 2 g daily may benefit from gu eval
--- NOTE | 2017-10-10 16:41 | PCM.URO ---
Urology Progress Note - Objective Lab Studies: Reviewed (please order a renal ultrasound and kub if pt still has hydronephrosis or a stone she needs a stent) Lab Results Last 24 Hours: Laboratory Results - last 24 hr 10/09/17 10/09/17 10/09/17 19:47 19:47 19:47 WBC RBC Hgb Hct MCV MCH MCHC RDW Plt Count MPV Neut % (Auto) Lymph % (Auto) [place] % (Auto) Eos % (Auto) Baso % (Auto) Neut # (Auto) Lymph # (Auto) [place] # (Auto) Eos # (Auto) Baso # (Auto) Neutrophils % (Manual) Band Neutrophils % Lymphocytes % (Manual) Monocytes % (Manual) Eosinophils % (Manual) Basophils % (Manual) Platelet Estimate Hypochromasia (manual) Retic Count 0.8 D Haptoglobin Sodium Potassium Chloride Carbon Dioxide Anion Gap BUN Creatinine Est GFR ( Amer) Est GFR (Non-Af Amer) POC Glucose (mg/dL) Random Glucose Calcium Phosphorus Magnesium Iron < 10 L TIBC 187 L % Saturation 5.3 L Ferritin 589.0 Total Bilirubin AST ALT Alkaline Phosphatase Total Protein Albumin Globulin Albumin/Globulin Ratio Vitamin B12 > 1000 H Folate 8.8 10/09/17 10/09/17 10/10/17 19:47 21:11 02:19 WBC RBC Hgb Hct MCV MCH MCHC RDW Plt Count MPV Neut % (Auto) Lymph % (Auto) [place] % (Auto) Eos % (Auto) Baso % (Auto) Neut # (Auto) Lymph # (Auto) [place] # (Auto) Eos # (Auto) Baso # (Auto) Neutrophils % (Manual) Band Neutrophils % Lymphocytes % (Manual) Monocytes % (Manual) Eosinophils % (Manual) Basophils % (Manual) Platelet Estimate Hypochromasia (manual) Retic Count Haptoglobin 476.2 H Sodium Potassium Chloride Carbon Dioxide Anion Gap BUN Creatinine Est GFR ( Amer) Est GFR (Non-Af Amer) POC Glucose (mg/dL) 132 H 120 H Random Glucose Calcium Phosphorus Magnesium Iron TIBC % Saturation Ferritin Total Bilirubin AST ALT Alkaline Phosphatase Total Protein Albumin Globulin Albumin/Globulin Ratio Vitamin B12 Folate 10/10/17 10/10/17 10/10/17 07:03 07:57 07:57 WBC 9.2 RBC 2.63 L Hgb 7.9 L Hct 22.9 L MCV 86.9 MCH 30.0 MCHC 34.5 RDW 14.4 Plt Count 296 MPV 8.5 Neut % (Auto) 86.8 H Lymph % (Auto) 7.5 L [place] % (Auto) 4.2 Eos % (Auto) 1.0 Baso % (Auto) 0.5 Neut # (Auto) 8.0 H Lymph # (Auto) 0.7 L [place] # (Auto) 0.4 Eos # (Auto) 0.1 Baso # (Auto) 0.1 Neutrophils % (Manual) 79 H Band Neutrophils % 8 H Lymphocytes % (Manual) 7 L Monocytes % (Manual) 4 Eosinophils % (Manual) 1 Basophils % (Manual) 1 Platelet Estimate Normal Hypochromasia (manual) Slight Retic Count Haptoglobin Sodium 132 Potassium 4.1 Chloride 102 Carbon Dioxide 23 Anion Gap 12 BUN 10 Creatinine 0.8 Est GFR ( Amer) > 60 Est GFR (Non-Af Amer) > 60 POC Glucose (mg/dL) 187 H Random Glucose 190 H Calcium 7.9 L Phosphorus 3.1 Magnesium 2.0 Iron TIBC % Saturation Ferritin Total Bilirubin 0.6 AST 40 H D ALT 29 Alkaline Phosphatase 401 H Total Protein 6.9 Albumin 2.7 L Globulin 4.2 H Albumin/Globulin Ratio 0.7 L Vitamin B12 Folate 10/10/17 10/10/17 07:57 11:03 WBC RBC Hgb Hct MCV MCH MCHC RDW Plt Count MPV Neut % (Auto) Lymph % (Auto) [place] % (Auto) Eos % (Auto) Baso % (Auto) Neut # (Auto) Lymph # (Auto) [place] # (Auto) Eos # (Auto) Baso # (Auto) Neutrophils % (Manual) Band Neutrophils % Lymphocytes % (Manual) Monocytes % (Manual) Eosinophils % (Manual) Basophils % (Manual) Platelet Estimate Hypochromasia (manual) Retic Count Haptoglobin Sodium Potassium Chloride Carbon Dioxide Anion Gap BUN Creatinine Est GFR ( Amer) Est GFR (Non-Af Amer) POC Glucose (mg/dL) 230 H Random Glucose Calcium Phosphorus Magnesium Iron TIBC % Saturation 9 L Ferritin Total Bilirubin AST ALT Alkaline Phosphatase Total Protein Albumin Globulin Albumin/Globulin Ratio Vitamin B12 Folate Intake & Output: Intake & Output 10/09/17 10/10/17 10/10/17 18:59 06:59 18:59 Intake Total 1280 2150 Balance 1280 2150 Intake: Intake, IV Amount 800 1600 Right Wrist 800 1600 Oral 480 550 Other: # Voids Urine, Voided 2 1 # Bowel Movements 0 Vital Signs: Vital Signs - 24 hr 10/10/17 10/10/17 10/10/17 00:00 08:00 11:32 Temperature 99.2 F 98.6 F Pulse Rate 93 H 89 87 Respiratory 20 20 20 Rate Blood Pressure 159/74 H 184/91 H 166/83 H O2 Sat by Pulse 94 L 97 97 Oximetry
--- NOTE | 2017-10-10 20:15 | CP.PCM.PN ---
<Jada Bauman P - Last Filed: 10/11/17 00:27> Subjective - Date & Time of Evaluation Date of Evaluation: 10/10/17 Time of Evaluation: 12:30 - Subjective Subjective: Pt seen and examined at bedside. Pt states she feels much better and has no complaints at this time. Denies fever, chills, abdominal pain, urinary frequency , hematuria, nausea, vomiting. Objective - Vital Signs/Intake and Output Vital Signs (last 24 hours): Temp Pulse Resp BP Pulse Ox 98.3 F 85 20 152/73 H 97 10/10/17 16:00 10/10/17 16:00 10/10/17 16:00 10/10/17 16:00 10/10/17 16:00 Intake and Output: 10/10/17 10/11/17 18:59 06:59 Intake Total 2150 Balance 2150 - Medications Medications: Current Medications Acetaminophen (Tylenol 325mg Tab) 650 mg PO Q6H PRN PRN Reason: Fever >100.4 F Divalproex Sodium (Depakote Dr) 500 mg PO DAILY [facility] Last Admin: 10/10/17 10:01 Dose: 500 mg Famotidine (Pepcid) 20 mg PO DAILY [facility] Last Admin: 10/10/17 09:30 Dose: 20 mg Ferrous Sulfate (Feosol) 325 mg PO BID [facility] Heparin Sodium (Porcine) (Heparin) 5,000 units SC Q8 [facility] Last Admin: 10/10/17 14:10 Dose: 5,000 units Meropenem 1 gm/ Sodium (Chloride) 100 mls @ 100 mls/hr IVPB Q8 [facility] PRN Reason: Protocol Last Admin: 10/10/17 14:10 Dose: 100 mls/hr Sodium Chloride (Sodium Chloride 0.9%) 1,000 mls @ 50 mls/hr IV .Q20H [facility] Last Admin: 10/10/17 16:30 Dose: 50 mls/hr Insulin Human Isoph/Insulin Regular (Novolin 70/30 (70/30 Units/Ml) 10 Ml) 44 units SC ACB [facility] Last Admin: 10/10/17 09:37 Dose: Not Given Insulin Human Isoph/Insulin Regular (Novolin 70/30 (70/30 Units/Ml) 10 Ml) 34 units SC ACD [facility] Last Admin: 10/10/17 17:37 Dose: 34 units Insulin Human NPH (Novolin N) 12 unit SC HS [facility] Last Admin: 10/09/17 21:35 Dose: 12 u Insulin Human Regular (Novolin R) 0 unit SC [facility] PRN Reason: Protocol Last Admin: 10/10/17 17:38 Dose: 3 unit Losartan Potassium (Cozaar) 100 mg PO DAILY [facility] Last Admin: 10/10/17 08:50 Dose: 100 mg Risperidone (Risperdal Tab) 1 mg PO [facility] Last Admin: 10/09/17 21:34 Dose: 1 mg Rosuvastatin Calcium (Crestor) 2.5 mg PO HS [facility] Last Admin: 10/09/17 21:34 Dose: 2.5 mg Saccharomyces Boulardii (Florastor) 250 mg PO Q12H [facility] Last Admin: 10/10/17 08:08 Dose: 250 mg Sertraline HCl (Zoloft) 100 mg PO [facility] Last Admin: 10/09/17 21:34 Dose: 100 mg Tamsulosin HCl (Flomax) 0.4 mg PO DAILY [facility] Last Admin: 10/10/17 09:30 Dose: 0.4 mg - Labs Labs: 10/10/17 07:57 10/10/17 07:57 - Constitutional Appears: No Acute Distress - Head Exam Head Exam: ATRAUMATIC, NORMOCEPHALIC - Respiratory Exam Respiratory Exam: Clear to Ausculation Bilateral - Cardiovascular Exam Cardiovascular Exam: RRR, +S1, +S2. absent: Murmur - GI/Abdominal Exam GI & Abdominal Exam: Soft, Normal Bowel Sounds. absent: Tenderness Additional comments: No CVA tenderness. - Extremities Exam Extremities Exam: absent: Pedal Edema Assessment and Plan - Assessment and Plan (Free Text) Assessment: 57 yo F with PMHx of HTN, HLD, Schizophrenia, DM, anemia and depression presents with abdominal pain, fever, chills and urinary frequency. Plan: 1. Uncontrolled DM Patient admitted with DKA anion gap currently 12 (with consideration of lower albumin) Hba1c 13.8 09/08/17 Discuss about diet,insulin,blood sugar monitor and clinic follow up Insulin NPH 44 units SC ACB Insulin NPH 34 units SC ACD Novolin N 12 units SC HS ISS 2. Bacteremia afebrile 10/10 will continue to monitor blood culture with GNR, will follow for final report urine culture with E. coli sensitive to meropenem will repeat culture tomorrow F/u echo to rule out vegetations causing bacteremia 3.UTI change antibiotics to Meropenem on 10/08 Urine culture positive for E. coli (not ESBL) repeat urine culture tomorrow 4. Obstructing ureteral stone Abdomen/pelvis CT: Obstructing distal left ureteral stone measuring 6mm with mild proximal urinary tract dilation an edematous appearance of the left kidney. Recommend urology consultation. (see complete report) continue flomax 0.4mg PO daily Dr. Mode Junior consulted, help appreciated -10/10: ordered renal U.S. and KUB, pt will need stent if studies show hydronephrosis. 5.HTN losartan 100mg PO daily 6. Anemia Down trending Hbg- 7.9 on 10/10 continue feosol increased to 325 mg BID 7.Schizophrenia depakote 500mg PO daily risperidone 1mg PO HS zoloft 100mg PO HS 8. Hyperlipidemia Lipid Panel (09/08/17): * TGL: 186, Cholesterol: 156, LDL: 86 and HDL: 24 Crestor 2.5mg PO HS = Home dose of simavastatin 10mg PO HS 9. Prophylactic measure sc heparin 5000u q8h pepcid 20mg PO daily <Abril Sosa V - Last Filed: 10/11/17 07:38> Objective - Vital Signs/Intake and Output Vital Signs (last 24 hours): Temp Pulse Resp BP Pulse Ox 98.8 F 91 H 20 157/78 H 98 10/10/17 23:57 10/10/17 23:57 10/10/17 23:57 10/10/17 23:57 10/10/17 23:57 Intake and Output: 10/11/17 10/11/17 06:59 18:59 Intake Total 1950 Balance 1950 - Medications Medications: Current Medications Acetaminophen (Tylenol 325mg Tab) 650 mg PO Q6H PRN PRN Reason: Fever >100.4 F Divalproex Sodium (Depakote Dr) 500 mg PO DAILY [facility] Last Admin: 10/10/17 10:01 Dose: 500 mg Famotidine (Pepcid) 20 mg PO DAILY [facility] Last Admin: 10/10/17 09:30 Dose: 20 mg Ferrous Sulfate (Feosol) 325 mg PO BID [facility] Heparin Sodium (Porcine) (Heparin) 5,000 units SC Q8 [facility] Last Admin: 10/11/17 05:20 Dose: 5,000 units Meropenem 1 gm/ Sodium (Chloride) 100 mls @ 100 mls/hr IVPB Q8 [facility] PRN Reason: Protocol Last Admin: 10/11/17 05:20 Dose: 100 mls/hr Sodium Chloride (Sodium Chloride 0.9%) 1,000 mls @ 50 mls/hr IV .Q20H [facility] Last Admin: 10/10/17 16:30 Dose: 50 mls/hr Insulin Human Isoph/Insulin Regular (Novolin 70/30 (70/30 Units/Ml) 10 Ml) 44 units SC ACB [facility] Last Admin: 10/10/17 09:37 Dose: Not Given Insulin Human Isoph/Insulin Regular (Novolin 70/30 (70/30 Units/Ml) 10 Ml) 34 units SC ACD [facility] Last Admin: 10/10/17 17:37 Dose: 34 units Insulin Human NPH (Novolin N) 12 unit SC HS [facility] Last Admin: 10/10/17 21:16 Dose: 12 u Insulin Human Regular (Novolin R) 0 unit SC ACHS [facility] PRN Reason: Protocol Last Admin: 10/10/17 21:17 Dose: Not Given Losartan Potassium (Cozaar) 100 mg PO DAILY [facility] Last Admin: 10/10/17 08:50 Dose: 100 mg Risperidone (Risperdal Tab) 1 mg PO [facility] Last Admin: 10/10/17 21:17 Dose: 1 mg Rosuvastatin Calcium (Crestor) 2.5 mg PO HS [facility] Last Admin: 10/10/17 21:17 Dose: 2.5 mg Saccharomyces Boulardii (Florastor) 250 mg PO Q12H [facility] Last Admin: 10/10/17 21:17 Dose: 250 mg Sertraline HCl (Zoloft) 100 mg PO HS [facility] Last Admin: 10/10/17 21:16 Dose: 100 mg Tamsulosin HCl (Flomax) 0.4 mg PO DAILY [facility] Last Admin: 10/10/17 09:30 Dose: 0.4 mg - Labs Labs: 10/10/17 07:57 10/10/17 07:57 Attending/Attestation - Attestation I have personally seen and examined this patient.: Yes I have fully participated in the care of the patient.: Yes I have reviewed all pertinent clinical information, including history, physical exam and plan: Yes Notes (Text): This is a late computer entry for 10/10/2017. Patient seen, examined, and case discussed with medical record librarians teacher. Patient seen this morning. Patient ate about 25% of her breakfast. Patient reports she just does not feel like eating and her food is cold. Patient reemphasize at bedside that she is a diabetic who comes her certain times to set this facility. Spoke with patient's nurse Elyssa morning dose of insulin was held given the patient did not eat sufficiently and I agree. Patient reports she is feeling better. We are awaiting repeat cultures to see if bacteremia and urinary tract infection are clearing. Patient is pending for an echocardiogram. Patient will continue IV antibiotic. In terms of physical exam there is no flank pain there is no abdominal pain she reports she is urinating. Case discussed with urology, recommends for KUB and renal ultrasound to see if hydronephrosis is persistent. Patient may need stent pending results. Patient's blood pressure was uncontrolled this morning we gave the dose of Cozaar. And we have ordered IV fluids 100 mL per hour to 50 mL per hour. We'll continue to monitor blood pressure and to see if she will need a second agent. Patient's anemia appears to be chronic we will increase iron supplementation to twice a day. Though likely anemia chronic disease at this standpoint because she is fighting off both bacteremia and urinary tract infection. Assessment/plan (1) DKA (diabetic ketoacidoses)-->stable Uncontrolled diabetes type insulin dependent Assessment and Plan: * Admitted and stabilized from the ICU on 10/08/17 * Novolin 70/30 44 units subqACB * Novolin 70/30 34 units subqACD * Novolin N 12 unit subqHS * Regular insulin subq sliding scale * Accuchecks QAC and HS * Cozaar 100mg PO daily * Crestor 2.5mg PO qHS Status: Acute (2) Uncontrolled diabetes mellitus Assessment and Plan: * HgbA1C (09/08/17): 13.8-->will repeat a1c; unclear how accurate 10/08/17 value is * Accuchecks QAC and HS Status: Acute (3) Metabolic acidosis Assessment and Plan: * Resolved; see #1 Status: Acute (4) Pyleonephritis Bacteremia Obstructing Left Renal Calculi Assessment and Plan: * Infectious Disease (Dr. Wild) on case-->help appreciated * Urology (Dr. Lex Junior) on the case-->help appreciated * Recommend for KUB and renal ultrasound to evaluate for further persistent hydronephrosis. * NS 50cc/hr * Flomax 0.4mg PO daily * Urine (10/07/17): E. coli * Blood cultures (10/08/17): Escherichia coli 2 * Awaiting repeat cultures * Abdomen/pelvis CT (10/08/17): small pericardial effusion. Trace amount of perihepatic fluid. Small approximately 3.5mm obstructing calculus mid distal left ureter. Borderline splenomegaly. Layering sludge or gravel within the gallbladder. Uterine fibroids. Small amount of free fluid in cul de sac. Minimal wall thickening Obstructing distal left ureteral stone measuring 6mm with mild proximal urinary tract dilation an edematous appearance of the left kidney. * Abdominal/Bladder US (10/08/17): mild hepatomegaly. liver exhibits increased echotexture likely secondary to fatty infiltration and intraluminal gallbladder sludge with suspected minimal pericholecystic fluid. Small amount of free fluid right upper quadrant of the abdomen. Enlarged left kidney. Medication/Management: * Meropenem 1gm IV q8h (active since 10/08/17) * Florastor 250mg PO BID Status: Acute (5) History of hypertension Assessment and Plan: Continue home medication: * Cozaar 100mg PO QD Status: Acute (6) History of hyperlipidemia Assessment and Plan: Lipid Panel (09/08/17): * TGL: 186, Cholesterol: 156, LDL: 86 and HDL: 24 Crestor 2.5mg PO HS = Home dose of simavastatin 10mg PO HS Status: Acute (7) History of schizophrenia Status: Acute (8) History of psychiatric disorder Assessment and Plan: Schizophrenia and depression Continue home medications: * Risperidone 1mg PO HS * Depakote 500mg PO QD * Zoloft 100mg HS Status: Acute (9) History of anemia Assessment and Plan: * Downtrending; unclear if dilutional or not * Ferrous sulfate 325mg PO QBID * Likely anemia chronic disease given the right now patient is ready of both bacteremia and pyelonephritis. * She'll likely need outpatient workup when she is without infection Status: Acute (10) Prophylactic measure Assessment and Plan: * GI: Protonix 20mg PO daily * DVT: SCDs, score of 1 * NS 50cc/hr * We'll start DVT prophylaxis.
[2017-10-10] MEDS: (Novolin N) Insulin Human Isophane (NPH) 100 u/ml 10 ml vial SC SCH (21:16)
[2017-10-10] MEDS: Rosuvastatin Calcium 2.5 mg Tab PO SCH (21:17)
--- NOTE | 2017-10-10 23:40 | CARD ---
APPROVED REPORT EKG Measurement Heart [id number] <Conclusion> Normal sinus rhythm Normal ECG
[2017-10-11] MEDS: Meropenem 1 GM in Sodium Chloride 0.9% 100 ML IVPB SCH ×3 (05:20→21:20)
--- NOTE | 2017-10-11 07:14 | CP.PCM.PN ---
<Abril Sosa V - Last Filed: 10/11/17 20:35> Objective - Vital Signs/Intake and Output Vital Signs (last 24 hours): Temp Pulse Resp BP Pulse Ox 98.7 F 78 20 155/79 H 99 10/11/17 17:43 10/11/17 17:43 10/11/17 17:43 10/11/17 17:43 10/11/17 17:43 Intake and Output: 10/11/17 10/12/17 18:59 06:59 Intake Total 600 Balance 600 - Medications Medications: Current Medications Acetaminophen (Tylenol 325mg Tab) 650 mg PO Q6H PRN PRN Reason: Fever >100.4 F Divalproex Sodium (Depakote Dr) 500 mg PO DAILY [facility] Last Admin: 10/11/17 09:59 Dose: 500 mg Famotidine (Pepcid) 20 mg PO DAILY [facility] Last Admin: 10/11/17 09:59 Dose: 20 mg Ferrous Sulfate (Feosol) 325 mg PO BID [facility] Last Admin: 10/11/17 17:30 Dose: 325 mg Heparin Sodium (Porcine) (Heparin) 5,000 units SC Q8 [facility] Last Admin: 10/11/17 14:02 Dose: 5,000 units Meropenem 1 gm/ Sodium (Chloride) 100 mls @ 100 mls/hr IVPB Q8 [facility] PRN Reason: Protocol Last Admin: 10/11/17 14:55 Dose: 100 mls/hr Sodium Chloride (Sodium Chloride 0.9%) 1,000 mls @ 50 mls/hr IV .Q20H [facility] Last Admin: 10/11/17 14:58 Dose: Not Given Insulin Human Isoph/Insulin Regular (Novolin 70/30 (70/30 Units/Ml) 10 Ml) 44 units SC ACB [facility] Last Admin: 10/11/17 08:09 Dose: Not Given Insulin Human Isoph/Insulin Regular (Novolin 70/30 (70/30 Units/Ml) 10 Ml) 34 units SC ACD [facility] Last Admin: 10/11/17 17:56 Dose: Not Given Insulin Human NPH (Novolin N) 12 unit SC HS [facility] Last Admin: 10/10/17 21:16 Dose: 12 u Insulin Human Regular (Novolin R) 0 unit SC ACHS [facility] PRN Reason: Protocol Last Admin: 10/11/17 17:57 Dose: Not Given Losartan Potassium (Cozaar) 100 mg PO DAILY [facility] Last Admin: 10/11/17 09:59 Dose: 100 mg Risperidone (Risperdal Tab) [address] [facility] Last Admin: 10/10/17 21:17 Dose: 1 mg Rosuvastatin Calcium (Crestor) 2.5 mg PO HS [facility] Last Admin: 10/10/17 21:17 Dose: 2.5 mg Saccharomyces Boulardii (Florastor) 250 mg PO Q12H [facility] Last Admin: 10/11/17 19:39 Dose: 250 mg Sertraline HCl (Zoloft) [address] [facility] Last Admin: 10/10/17 21:16 Dose: 100 mg Tamsulosin HCl (Flomax) 0.4 mg PO DAILY [facility] Last Admin: 10/11/17 09:59 Dose: 0.4 mg - Labs Labs: 10/11/17 10:45 10/11/17 10:45 Attending/Attestation - Attestation I have personally seen and examined this patient.: Yes I have fully participated in the care of the patient.: Yes I have reviewed all pertinent clinical information, including history, physical exam and plan: Yes Notes (Text): patient seen, examined, and case discussed with day-time resident. Patient seen this afternoon. Patient reports she is feeling better. Patient reports she ate small portion of her meals. Case discussed with urology, he spoke with the patient provided her his cell number, will f/u outpatient. Patient's renal US does not show hydronephrosis. Patient has small renal calcul noted on abdominal xray. patient has completed limited echo to r/o vegetations. ID recommends total of 14 days therapy we will f/u with him in regard what PO option. patient is for possible discharge tomorrow. Assessment/plan (1) DKA (diabetic ketoacidoses)-->stable Uncontrolled diabetes type insulin dependent Assessment and Plan: * Admitted and stabilized from the ICU on 10/08/17 * Novolin 70/30 44 units subqACB * Novolin 70/30 34 units subqACD * Novolin N 12 unit subqHS * Regular insulin subq sliding scale * Accuchecks QAC and HS * Cozaar 100mg PO daily * Crestor 2.5mg PO qHS Status: Acute (2) Uncontrolled diabetes mellitus Assessment and Plan: * HgbA1C (09/08/17): 13.8-->will repeat a1c; unclear how accurate 10/08/17 value is * Accuchecks QAC and HS Status: Acute (3) Metabolic acidosis Assessment and Plan: * Resolved; see #1 Status: Acute (4) Pyleonephritis Bacteremia Obstructing Left Renal Calculi Assessment and Plan: * Infectious Disease (Dr. Wild) on case-->help appreciated * 14 days total of therapy * Urology (Dr. Lex Junior) on the case-->help appreciated * Renal US (10/11/17): unremarkable * Abdominal Xray (10/11/17): 6mm calcification inferior to the left L4 transverse process. Possible ureteral calculus. No other significant abnormality. * Flomax 0.4mg PO daily * Urine (10/07/17): E. coli * Blood cultures (10/08/17): Escherichia coli 2 * Blood cultures (: no growth after 24hours X2 * Urine culture (10/10/17); no growth * Abdomen/pelvis CT (10/08/17): small pericardial effusion. Trace amount of perihepatic fluid. Small approximately 3.5mm obstructing calculus mid distal left ureter. Borderline splenomegaly. Layering sludge or gravel within the gallbladder. Uterine fibroids. Small amount of free fluid in cul de sac. Minimal wall thickening Obstructing distal left ureteral stone measuring 6mm with mild proximal urinary tract dilation an edematous appearance of the left kidney. * Abdominal/Bladder US (10/08/17): mild hepatomegaly. liver exhibits increased echotexture likely secondary to fatty infiltration and intraluminal gallbladder sludge with suspected minimal pericholecystic fluid. Small amount of free fluid right upper quadrant of the abdomen. Enlarged left kidney. Medication/Management: * Meropenem 1gm IV q8h (active since 10/08/17) * Florastor 250mg PO BID Status: Acute (5) History of hypertension Assessment and Plan: Continue home medication: * Cozaar 100mg PO QD * d/c iv fluids Status: Acute (6) History of hyperlipidemia Assessment and Plan: Lipid Panel (09/08/17): * TGL: 186, Cholesterol: 156, LDL: 86 and HDL: 24 Crestor 2.5mg PO HS = Home dose of simavastatin 10mg PO HS Status: Acute (7) History of schizophrenia Status: Chronic (8) History of psychiatric disorder Assessment and Plan: Schizophrenia and depression Continue home medications: * Risperidone 1mg PO HS * Depakote 500mg PO QD * Zoloft 100mg HS Status: Acute (9) History of anemia Assessment and Plan: * Downtrending; unclear if dilutional or not * Ferrous sulfate 325mg PO QBID * Likely anemia chronic disease given the right now patient is ready of both bacteremia and pyelonephritis. * She'll likely need outpatient workup when she is without infection Status: Acute (10) Prophylactic measure Assessment and Plan: * GI: Protonix 20mg PO daily * DVT: SCDs, score of 1 * Heparin 5000 units subq8H. <Jada Bauman - Last Filed: 10/12/17 00:53> Subjective - Date & Time of Evaluation Date of Evaluation: 10/11/17 Time of Evaluation: 06:15 - Subjective Subjective: PGY-[address] Sosa. Patient was seen and evaluated at bedside. Patient has no complaints at time time. Denies chest pain, abdominal pain, flank pain, dysuria, feve and chills. Patient encouraged to eat full meals. States she eats half and saves other half for later. Objective - Vital Signs/Intake and Output Vital Signs (last 24 hours): Temp Pulse Resp BP Pulse Ox 98.8 F 91 H 20 157/78 H 98 10/10/17 23:57 10/10/17 23:57 10/10/17 23:57 10/10/17 23:57 10/10/17 23:57 Intake and Output: 10/11/17 10/11/17 06:59 18:59 Intake Total 1950 Balance 1950 - Medications Medications: Current Medications Acetaminophen (Tylenol 325mg Tab) 650 mg PO Q6H PRN PRN Reason: Fever >100.4 F Divalproex Sodium (Depakote Dr) 500 mg PO DAILY [facility] Last Admin: 10/10/17 10:01 Dose: 500 mg Famotidine (Pepcid) 20 mg PO DAILY [facility] Last Admin: 10/10/17 09:30 Dose: 20 mg Ferrous Sulfate (Feosol) 325 mg PO BID [facility] Heparin Sodium (Porcine) (Heparin) 5,000 units SC Q8 [facility] Last Admin: 10/11/17 05:20 Dose: 5,000 units Meropenem 1 gm/ Sodium (Chloride) 100 mls @ 100 mls/hr IVPB Q8 [facility] PRN Reason: Protocol Last Admin: 10/11/17 05:20 Dose: 100 mls/hr Sodium Chloride (Sodium Chloride 0.9%) 1,000 mls @ 50 mls/hr IV .Q20H [facility] Last Admin: 10/10/17 16:30 Dose: 50 mls/hr Insulin Human Isoph/Insulin Regular (Novolin 70/30 (70/30 Units/Ml) 10 Ml) 44 units SC ACB [facility] Last Admin: 10/10/17 09:37 Dose: Not Given Insulin Human Isoph/Insulin Regular (Novolin 70/30 (70/30 Units/Ml) 10 Ml) 34 units SC ACD [facility] Last Admin: 10/10/17 17:37 Dose: 34 units Insulin Human NPH (Novolin N) 12 unit SC HS [facility] Last Admin: 10/10/17 21:16 Dose: 12 u Insulin Human Regular (Novolin R) 0 unit SC ACHS [facility] PRN Reason: Protocol Last Admin: 10/10/17 21:17 Dose: Not Given Losartan Potassium (Cozaar) 100 mg PO DAILY [facility] Last Admin: 10/10/17 08:50 Dose: 100 mg Risperidone (Risperdal Tab) [address] [facility] Last Admin: 10/10/17 21:17 Dose: 1 mg Rosuvastatin Calcium (Crestor) 2.5 mg PO HS [facility] Last Admin: 10/10/17 21:17 Dose: 2.5 mg Saccharomyces Boulardii (Florastor) 250 mg PO Q12H [facility] Last Admin: 10/10/17 21:17 Dose: 250 mg Sertraline HCl (Zoloft) 100 mg PO HS [facility] Last Admin: 10/10/17 21:16 Dose: 100 mg Tamsulosin HCl (Flomax) 0.4 mg PO DAILY [facility] Last Admin: 10/10/17 09:30 Dose: 0.4 mg - Labs Labs: 10/10/17 07:57 10/10/17 07:57 - Constitutional Appears: No Acute Distress - Head Exam Head Exam: ATRAUMATIC, NORMOCEPHALIC - Eye Exam Eye Exam: EOMI - ENT Exam ENT Exam: Mucous Membranes Moist - Respiratory Exam Respiratory Exam: Clear to Ausculation Bilateral. absent: Rales, Rhonchi, Wheezes - Cardiovascular Exam Cardiovascular Exam: REGULAR RHYTHM, +S1, +S2. absent: Murmur - GI/Abdominal Exam GI & Abdominal Exam: Soft, Normal Bowel Sounds. absent: Tenderness Additional comments: no CVA tenderness. - Extremities Exam Extremities Exam: absent: Pedal Edema - Neurological Exam Neurological Exam: Alert, Awake, Oriented x3 - Psychiatric Exam Psychiatric exam: Normal Mood - Skin Skin Exam: Dry, Intact, Warm Assessment and Plan - Assessment and Plan (Free Text) Assessment: 57 yo F with PMHx of HTN, HLD, Schizophrenia, DM, anemia and depression presents with abdominal pain, fever, chills and urinary frequency. Plan: 1. Uncontrolled DM Patient admitted with DKA anion gap currently 12 (with consideration of lower albumin) Hba1c 13.8 09/08/17 Discuss about diet,insulin,blood sugar monitor and clinic follow up Insulin NPH 44 units SC ACB Insulin NPH 34 units SC ACD Novolin N 12 units SC HS ISS 2. Bacteremia afebrile will continue to monitor blood culture with GNR, will follow for final report urine culture with E. coli sensitive to meropenem F/u 10/10 blood culture -preliminary: No growth 24 hours F/u echo to rule out vegetations causing bacteremia 3.UTI change antibiotics to Meropenem on 10/08 Urine culture positive for E. coli (not ESBL) F/u repeat urine culture -10/11 preliminary: no growth Dr. Wild, MITESH consulted, help appreciated -recommends patient on Keflex TID for 14 additional days following discharge (pending cultures) 4. Obstructing ureteral stone Abdomen/pelvis CT: Obstructing distal left ureteral stone measuring 6mm with mild proximal urinary tract dilation an edematous appearance of the left kidney. Recommend urology consultation. (see complete report) continue flomax 0.4mg PO daily Dr. Mode Junior consulted, help appreciated -10/10: recommends renal U.S. and KUB, pt will need stent if studies show hydronephrosis. 10/11 Renal US: No hydronephrosis 10/11 KUB: 6mm calcification inferior to L L4 transverse process. Possible ureteral calculus. 10/11 Dr. España recommends outpatient followup. 5.HTN losartan 100mg PO daily 6. Anemia Down trending Hbg- 7.9 on 10/10 feosol increased to 325 mg BID -10/11 Hb.3 7.Schizophrenia depakote 500mg PO daily risperidone 1mg PO HS zoloft 100mg PO HS 8. Hyperlipidemia Lipid Panel (09/08/17): * TGL: 186, Cholesterol: 156, LDL: 86 and HDL: 24 Crestor 2.5mg PO HS = Home dose of simavastatin 10mg PO HS 9. Prophylactic measure sc heparin 5000u q8h pepcid 20mg PO daily
[2017-10-11] MEDS: (Novolin 70/30) NPH/Regular 70/30 Units/ml 10 ml vial SC SCH ×2 (08:09→17:56)
[2017-10-11] MEDS: (Novolin R) Insulin Human Regular 100 units/ml vial SC SCH ×4 (08:09→22:21)
[2017-10-11] MEDS: Saccharomyces Boulardi 250 mg Cap PO SCH ×2 (08:15→19:39)
[2017-10-11] MEDS: Divalproex 500 mg DR Tab PO SCH (09:59)
--- NOTE | 2017-10-11 10:33 | US ---
PROCEDURE: Ultrasound of the Kidneys HISTORY: monitor for hydronephrosis COMPARISON: CT scan of the abdomen and pelvis dated 10/07/2017. TECHNIQUE: Sonogram of the kidneys. FINDINGS: RIGHT KIDNEY: Measures: 10.3 x 4.6 x 4.6 cm. Normal in size, contour and echogenicity. No stone, solid mass lesion or hydronephrosis visualized. LEFT KIDNEY: Measures: 14.2 x 6.2 x 5.7 cm. Normal in size, contour and echogenicity. No stone, solid mass lesion or hydronephrosis visualized. OTHER FINDINGS: Trace free fluid adjacent to the urinary bladder. IMPRESSION: Unremarkable renal sonogram.
[2017-10-11 10:55] LABS: BASO % 0.5 % (0.0-2.0); EOS # 0.2 K/uL (0.0-0.7); EOS % 2.2 % (0.0-4.0); HEMOGLOBIN 8.3 g/dL (11.0-16.0); LYMPH # 0.7 K/uL (1.0-4.3); LYMPH % 8.7 % (20.0-40.0); MEAN CELL VOLUME 87.3 fL (81.0-99.0); MEAN CORPUSCULAR HEMOGLOBIN 28.6 pg (27.0-31.0); MEAN CORPUSCULAR HGB CONC 32.8 g/dL (33.0-37.0); MONO # 0.5 K/uL (0.0-0.8); NEUT # 6.8 K/uL (1.8-7.0); NEUT % 82.6 % (50.0-75.0); PLATELET COUNT 365 K/uL (130-400); RED CELL DISTRIBUTION WIDTH 14.6 % (11.5-14.5); WHITE BLOOD COUNT 8.3 K/uL (4.8-10.8)
[2017-10-11 11:17] LABS: ALB/GLOB RATIO 0.7 (1.0-2.1); ALBUMIN 2.9 g/dL (3.5-5.0); ALT/SGPT 24 U/L (9-52); AST/SGOT 43 U/L (14-36); BLOOD UREA NITROGEN 7 mg/dL (7-17); GFR AFRICAN-AMERICAN > 60; GFR NON-AFRICAN AMERICAN > 60
--- NOTE | 2017-10-11 11:36 | RAD ---
HISTORY: check for urethral stone COMPARISON: No prior. FINDINGS: BOWEL: Next normal bowel gas pattern. Mild retained feces. There is a 6 mm rounded calcifications seen just inferior to the left L4 vertebral transverse process. This may be ureteral in location. Is not well visualized on the oblique views and this is uncertain. There is no other significant calcification identified concerning for a urinary tract calcification. BONES: Normal. OTHER FINDINGS: None. IMPRESSION: 6 mm calcification inferior to the left L4 transverse process. Possible ureteral calculus. No other significant abnormality.
[2017-10-11 12:07] LABS: BANDS 1 % (0-2); EOSINOPHIL 4 % (0-4); HYPOCHROMIC SLIGHT; LYMPHOCYTE 6 % (20-40); MONOCYTE 3 % (0-10); NEUTROPHIL 86 % (50-75); PLATELET ESTIMATE NORMAL (NORMAL); POLYCHROMIC SLIGHT; TOTAL CELLS COUNTED 100
--- NOTE | 2017-10-11 13:06 | CP.PCM.PN ---
Subjective - Date & Time of Evaluation Date of Evaluation: 10/11/17 Time of Evaluation: 08:00 - Subjective Subjective: seen by may need stent placement cont iv then po antibiotics min 14 days Objective - Vital Signs/Intake and Output Vital Signs (last 24 hours): Temp Pulse Resp BP Pulse Ox 98.0 F 93 H 20 129/75 97 10/11/17 07:00 10/11/17 07:00 10/11/17 07:00 10/11/17 07:00 10/11/17 07:00 Intake and Output: 10/11/17 10/11/17 06:59 18:59 Intake Total 1950 Balance 1950 - Medications Medications: Current Medications Acetaminophen (Tylenol 325mg Tab) 650 mg PO Q6H PRN PRN Reason: Fever >100.4 F Divalproex Sodium (Depakote Dr) 500 mg PO DAILY [facility] Last Admin: 10/11/17 09:59 Dose: 500 mg Famotidine (Pepcid) 20 mg PO DAILY [facility] Last Admin: 10/11/17 09:59 Dose: 20 mg Ferrous Sulfate (Feosol) 325 mg PO BID [facility] Last Admin: 10/11/17 10:00 Dose: 325 mg Heparin Sodium (Porcine) (Heparin) 5,000 units SC Q8 [facility] Last Admin: 10/11/17 05:20 Dose: 5,000 units Meropenem 1 gm/ Sodium (Chloride) 100 mls @ 100 mls/hr IVPB Q8 [facility] PRN Reason: Protocol Last Admin: 10/11/17 05:20 Dose: 100 mls/hr Sodium Chloride (Sodium Chloride 0.9%) 1,000 mls @ 50 mls/hr IV .Q20H [facility] Last Admin: 10/10/17 16:30 Dose: 50 mls/hr Insulin Human Isoph/Insulin Regular (Novolin 70/30 (70/30 Units/Ml) 10 Ml) 44 units SC ACB [facility] Last Admin: 10/11/17 08:09 Dose: Not Given Insulin Human Isoph/Insulin Regular (Novolin 70/30 (70/30 Units/Ml) 10 Ml) 34 units SC ACD [facility] Last Admin: 10/10/17 17:37 Dose: 34 units Insulin Human NPH (Novolin N) 12 unit SC HS [facility] Last Admin: 10/10/17 21:16 Dose: 12 u Insulin Human Regular (Novolin R) 0 unit SC [facility] PRN Reason: Protocol Last Admin: 10/11/17 12:05 Dose: 2 unit Losartan Potassium (Cozaar) 100 mg PO DAILY [facility] Last Admin: 10/11/17 09:59 Dose: 100 mg Risperidone (Risperdal Tab) 1 mg PO [facility] Last Admin: 10/10/17 21:17 Dose: 1 mg Rosuvastatin Calcium (Crestor) 2.5 mg PO [facility] Last Admin: 10/10/17 21:17 Dose: 2.5 mg Saccharomyces Boulardii (Florastor) 250 mg PO Q12H [facility] Last Admin: 10/11/17 08:15 Dose: 250 mg Sertraline HCl (Zoloft) 100 mg PO [facility] Last Admin: 10/10/17 21:16 Dose: 100 mg Tamsulosin HCl (Flomax) 0.4 mg PO DAILY [facility] Last Admin: 10/11/17 09:59 Dose: 0.4 mg - Labs Labs: 10/11/17 10:45 10/11/17 10:45 - Constitutional Appears: Well - Head Exam Head Exam: ATRAUMATIC, NORMAL INSPECTION, NORMOCEPHALIC - Eye Exam Eye Exam: EOMI, Normal appearance, PERRL Pupil Exam: NORMAL ACCOMODATION, PERRL - ENT Exam ENT Exam: Mucous Membranes Moist, Normal Exam - Neck Exam Neck Exam: Full ROM, Normal Inspection. absent: Lymphadenopathy - Respiratory Exam Respiratory Exam: Clear to Ausculation Bilateral, NORMAL BREATHING PATTERN - Cardiovascular Exam Cardiovascular Exam: REGULAR RHYTHM, +S1, +S2. absent: Murmur - GI/Abdominal Exam GI & Abdominal Exam: Soft, Normal Bowel Sounds. absent: Tenderness - Rectal Exam Rectal Exam: NORMAL INSPECTION - Exam Exam: NORMAL INSPECTION - Extremities Exam Extremities Exam: Full ROM, Normal Capillary Refill, Normal Inspection. absent : Joint Swelling, Pedal Edema - Back Exam Back Exam: NORMAL INSPECTION - Neurological Exam Neurological Exam: Alert, Awake, CN II-XII Intact, Normal Gait, Oriented x3 - Psychiatric Exam Psychiatric exam: Normal Affect, Normal Mood - Skin Skin Exam: Dry, Intact, Normal Color, Warm Assessment and Plan (1) Diabetic acetonemia Status: Acute (2) History of schizophrenia Status: Acute (3) Leukocytosis Status: Acute (4) Metabolic acidosis Status: Acute (5) Pyelonephritis Status: Acute (6) Uncontrolled diabetes mellitus Status: Acute - Assessment and Plan (Free Text) Assessment: seen by may need stent placement cont iv then po antibiotics min 14 days
[2017-10-11] MEDS: Sodium Chloride 0.9% 1,000 ML IV SCH (14:58)
[2017-10-11] MEDS: Rosuvastatin Calcium 2.5 mg Tab PO SCH (21:21)
[2017-10-11] MEDS: (Novolin N) Insulin Human Isophane (NPH) 100 u/ml 10 ml vial SC SCH (22:20)
[2017-10-12] MEDS: Meropenem 1 GM in Sodium Chloride 0.9% 100 ML IVPB SCH ×2 (05:33→14:35)
[2017-10-12] MEDS: (Novolin R) Insulin Human Regular 100 units/ml vial SC SCH ×3 (07:55→16:53)
[2017-10-12] MEDS: (Novolin 70/30) NPH/Regular 70/30 Units/ml 10 ml vial SC SCH ×4 (08:30→16:53)
[2017-10-12] MEDS: Saccharomyces Boulardi 250 mg Cap PO SCH (08:46)
--- NOTE | 2017-10-12 09:05 | CP.PCM.DIS ---
Provider - Provider Date of Admission: 10/08/17 00:24 Attending physician: Abril Sosa DO Time Spent in preparation of Discharge (in minutes): 60 Diagnosis - Discharge Diagnosis (1) Renal calculus, left Status: Acute Hospital Course - Lab Results Lab Results: Micro Results 10/10/17 07:57 Blood-Venous Blood Culture - Preliminary NO GROWTH AFTER 48 HOURS 10/10/17 22:11 Urine Urine Culture - Preliminary No growth. 10/10/17 12:10 Blood-Venous Blood Culture - Preliminary NO GROWTH AFTER 24 HOURS 10/08/17 08:03 Blood Blood Culture - Final Escherichia Coli 10/08/17 08:03 Blood Gram Stain - Final 10/08/17 08:03 Blood Blood Culture - Final Escherichia Coli 10/08/17 08:03 Blood Gram Stain - Final 10/08/17 06:00 Nose MRSA Culture - Final MRSA NOT DETECTED 10/08/17 06:37 Nose MRSA Culture (Admit) - Final MRSA NOT DETECTED 10/07/17 19:09 Urine Urine Culture - Final Escherichia Coli Most Recent Lab Values WBC 8.3 K/uL (4.8-10.8) 10/11/17 10:45 RBC 2.90 Mil/uL (3.80-5.20) L 10/11/17 10:45 Hgb 8.3 g/dL (11.0-16.0) L 10/11/17 10:45 Hct 25.3 % (34.0-47.0) L 10/11/17 10:45 MCV 87.3 fL (81.0-99.0) 10/11/17 10:45 MCH 28.6 pg (27.0-31.0) 10/11/17 10:45 MCHC 32.8 g/dL (33.0-37.0) L 10/11/17 10:45 RDW 14.6 % (11.5-14.5) H 10/11/17 10:45 Plt Count 365 K/uL (130-400) 10/11/17 10:45 MPV 8.0 fL (7.2-11.7) 10/11/17 10:45 Neut % (Auto) 82.6 % (50.0-75.0) H 10/11/17 10:45 Lymph % (Auto) 8.7 % (20.0-40.0) L 10/11/17 10:45 [place] % (Auto) 6.0 % (0.0-10.0) 10/11/17 10:45 Eos % (Auto) 2.2 % (0.0-4.0) 10/11/17 10:45 Baso % (Auto) 0.5 % (0.0-2.0) 10/11/17 10:45 Neut # (Auto) 6.8 K/uL (1.8-7.0) 10/11/17 10:45 Lymph # (Auto) 0.7 K/uL (1.0-4.3) L 10/11/17 10:45 [place] # (Auto) 0.5 K/uL (0.0-0.8) 10/11/17 10:45 Eos # (Auto) 0.2 K/uL (0.0-0.7) 10/11/17 10:45 Baso # (Auto) 0.0 K/uL (0.0-0.2) 10/11/17 10:45 Neutrophils % (Manual) 86 % (50-75) H 10/11/17 10:45 Band Neutrophils % 1 % (0-2) 10/11/17 10:45 Lymphocytes % (Manual) 6 % (20-40) L 10/11/17 10:45 Monocytes % (Manual) 3 % (0-10) 10/11/17 10:45 Eosinophils % (Manual) 4 % (0-4) 10/11/17 10:45 Basophils % (Manual) 1 % (0-2) 10/10/17 07:57 Platelet Estimate Normal (NORMAL) 10/11/17 10:45 Large Platelets Present 10/09/17 11:16 Polychromasia Slight 10/11/17 10:45 Hypochromasia (manual) Slight 10/11/17 10:45 Anisocytosis (manual) Slight 10/09/17 11:16 Retic Count 0.8 % (0.5-1.5) D 10/09/17 19:47 Haptoglobin 476.2 mg/dL (30.0-200.0) H 10/09/17 19:47 Puncture Site Lra 10/07/17 20:22 pCO2 31 mm/Hg (35-45) L 10/07/17 20:22 pO2 69 mm/Hg (80-100) L 10/07/17 20:22 HCO3 20.4 mmol/L (21-28) L 10/07/17 20:22 ABG pH 7.38 (7.35-7.45) 10/07/17 20:22 ABG Total CO2 19.3 mmol/L (22-28) L 10/07/17 20:22 ABG O2 Saturation 96.0 % (95-98) 10/07/17 20:22 ABG Base Excess -5.6 mmol/L (-2.0-3.0) L 10/07/17 20:22 ABG Hemoglobin 15.0 g/dL (11.7-17.4) 10/07/17 20: ABG Carboxyhemoglobin 2.5 % (0.5-1.5) H 10/07/17 20:22 POC ABG HHb (Measured) 3.9 % (0.0-5.0) 10/07/17 20: ABG Methemoglobin 1.2 % (0.0-3.0) 10/07/17 20:22 Fredi Test Pos 10/07/17 20:22 A-a O2 Difference 42.0 mm/Hg 10/07/17 20:22 Respiratory Index 0.6 10/07/17 20:22 Hgb O2 Saturation 92.4 % (95.0-98.0) L 10/07/17 20: FiO2 21.0 % 10/07/17 20:22 Sodium 134 mmol/L (132-148) 10/11/17 10:45 Potassium 4.1 mmol/L (3.6-5.2) 10/11/17 10:45 Chloride 100 mmol/L (98-107) 10/11/17 10:45 Carbon Dioxide 26 mmol/L (22-30) 10/11/17 10:45 Anion Gap 12 (10-20) 10/11/17 10:45 BUN 7 mg/dL (7-17) 10/11/17 10:45 Creatinine 0.9 mg/dL (0.7-1.2) 10/11/17 10:45 Est GFR ( Amer) > 60 10/11/17 10:45 Est GFR (Non-Af Amer) > 60 10/11/17 10:45 POC Glucose (mg/dL) 285 mg/dL (65-110) H 10/12/17 06:55 Random Glucose 162 mg/dL (65-105) H 10/11/17 10:45 Hemoglobin A1c 5.7 % (4.2-6.5) 10/08/17 00:44 Lactic Acid 2.1 mmol/L (0.7-2.1) 10/08/17 04:31 Calcium 8.0 mg/dl (8.6-10.4) L 10/11/17 10:45 Phosphorus 3.2 mg/dL (2.5-4.5) 10/11/17 10:45 Magnesium 1.9 mg/dL (1.6-2.3) 10/11/17 10:45 Iron < 10 ug/dL (37-170) L 10/09/17 19:47 TIBC 187 ug/dL (250-450) L 10/09/17 19:47 % Saturation 9 (20-55) L 10/10/17 07:57 Ferritin 589.0 ng/mL 10/09/17 19:47 Total Bilirubin 0.6 mg/dL (0.2-1.3) 10/11/17 10:45 AST 43 U/L (14-36) H 10/11/17 10:45 ALT 24 U/L (9-52) 10/11/17 10:45 Alkaline Phosphatase 430 U/L (38-126) H 10/11/17 10:45 NT-Pro-B Natriuret Pep 59.9 pg/mL (0-900) 10/08/17 00:44 Total Protein 7.1 g/dL (6.3-8.3) 10/11/17 10:45 Albumin 2.9 g/dL (3.5-5.0) L 10/11/17 10:45 Globulin 4.3 gm/dL (2.2-3.9) H 10/11/17 10:45 Albumin/Globulin Ratio 0.7 (1.0-2.1) L 10/11/17 10:45 Lipase 736 U/L (23-300) H 10/07/17 19:08 Vitamin B12 > 1000 pg/mL (239-931) H 10/09/17 19:47 Folate 8.8 ng/mL 10/09/17 19:47 Urine Color Yellow (YELLOW) 10/07/17 19:09 Urine Clarity Hazy (Clear) 10/07/17 19:09 Urine pH 5.0 (5.0-8.0) 10/07/17 19:09 Ur Specific [place] 1.018 (1.003-1.030) 10/07/17 19:09 Urine Protein 1+ mg/dL (NEGATIVE) H 10/07/17 19:09 Urine Glucose (UA) 3+ mg/dL (Normal) H 10/07/17 19:09 Urine Ketones 1+ mg/dL (NEGATIVE) H 10/07/17 19:09 Urine Blood 2+ (NEGATIVE) H 10/07/17 19:09 Urine Nitrate Negative (NEGATIVE) 10/07/17 19:09 Urine Bilirubin Negative (NEGATIVE) 10/07/17 19:09 Urine Urobilinogen 2.0 mg/dL (0.2-1.0) H 10/07/17 19:09 Ur Leukocyte Esterase 3+ [place]/uL (Negative) H 10/07/17 19:09 Urine WBC (Auto) 456 /hpf (0-5) H 10/07/17 19:09 Urine RBC (Auto) 125 /hpf (0-3) H 10/07/17 19:09 Ur Squamous Epith Cells 27 /hpf (0-5) H 10/07/17 19:09 Urine Bacteria Mod (<OCC) H 10/07/17 19:09 Valproic Acid < 10.0 ug/mL (50.0-100.0) L 10/08/17 04:31 B-Hydroxybutyrate 1.19 mM (0.02-0.27) H 10/08/17 03:51 - Hospital Course Hospital Course: Patient is a 57 year old female with past medical history of HTN, HLD, DM, schizophrenia, who presents to the clinic with complaints of diffuse abdominal pain that started 2-3 days ago. Patient reports associated symptoms of diarrhea , nausea, subjective fever, chills, polydipsia, polyuria. Patient denies chest pain, palpitations, SOB, dizziness, headache, blurry vision, numbness and tingling. Patient's last admission was 09/08/17 for diabetic ketoacidosis and metabolic acidosis with an anion gap of 31 and was also found to be bacteremic. However, patient left against medical advice on day 5 of admission without finishing antibiotic course. Patient came to the hospital complaining of abdominal pain. Abdominal and Pelvic CT showed a small pericardial effusion, trace amounts of perihepatic fluid, and a small obstructing kidney stone in the mid distal left ureter. There was also borderline splenomegaly, uterine fibroids with free fluid surrounding, and minimal wall thickening of the bladder. Abdominal and Bladder US showed mild hepatomegaly and an enlarged left kidney. The pyelonephritis was treated with Meropenem, fluids, and Florastor until being changed to Keflex upon discharge. Patient was also found to be in DKA and was stabilized in the ICU before being transferred to med/surg. Hb A1c is 12.1 on 10/12, indicating very poor hyperglycemic control. Patient was encouraged to eat regular meals and drink lots of fluids. Her history of HTN, HLD, schizophrenia, depression, and anemia to monitored and treated by continuing her home medications. Her anemia is downtrending, likely anemia chronic disease given the current infections. Patient is stable for discharge home as per Drs. Sosa and Torri. Patient should resume all home medications, except amoxicillin/clavulanate. A new antibiotic has been prescribed for the current issue. Patient should take the medication below as prescribed. Norvasc 5mg by mouth daily Cephalexin 500mg by mouth 3 times a day Bacid 1 cap by mouth daily Tamsulosin 0.4mg by mouth daily Patient [facility] within the next week. Patient should return to ED immediately if symptoms return of worsen. Instructions discussed with patient who understood and agreed. This is a summary of the hospital course. Please refer to the EMR for a more detailed account. - Date & Time of H&P Date of H&P: 10/12/17 Time of H&P: 16:46 Discharge Exam - Head Exam Head Exam: ATRAUMATIC, NORMOCEPHALIC - Eye Exam Eye Exam: EOMI, Normal appearance, PERRL - ENT Exam ENT Exam: Mucous Membranes Moist, Normal Exam - Respiratory Exam Respiratory Exam: Clear to PA & Lateral, NORMAL BREATHING PATTERN. absent: Rales, Rhonchi, Wheezes, Respiratory Distress, Stridor - Cardiovascular Exam Cardiovascular Exam: REGULAR RHYTHM, +S1, +S2. absent: Gallop, Rubs - GI/Abdominal Exam GI & Abdominal Exam: Normal Bowel Sounds, Soft. absent: Guarding, Tenderness - Exam Exam: absent: Uretheral Discharge External exam: NORMAL EXTERNAL EXAM Bimanual exam: absent: Uterine Tenderness Additional comments: no tenderness to palpation in suprapubic region - Extremities Exam Extremities exam: normal capillary refill, normal inspection, pedal pulses present - Neurological Exam Neurological exam: Alert, CN II-XII Intact, Normal Gait, Oriented x3, Reflexes Normal - Psychiatric Exam Psychiatric exam: Normal Affect, Normal Mood - Skin Skin Exam: Dry, Intact, Normal Color, Warm Discharge Plan - Discharge Medications Prescriptions: amLODIPine [Norvasc] 5 mg PO DAILY #30 tab Cephalexin [cephalexin] 500 mg PO TID #42 cap Lactobacillus Acidophilus [Bacid Acidophilus] 1 cap PO DAILY #30 cap Tamsulosin [Flomax] 0.4 mg PO DAILY #30 cap - Follow Up Plan Condition: STABLE Disposition: HOME/ ROUTINE Instructions: Diabetic Ketoacidosis (DC), Diabetic Ketoacidosis (GEN) Additional Instructions: Patient is stable for discharge home as per Dr. Sosa. Patient should resume all home medications, except amoxicillin/clavulanate. A new antibiotic has been prescribed for the current issue. Patient should take the medication below as prescribed. Norvasc 5mg by mouth daily Cephalexin 500mg by mouth 3 times a day Bacid 1 cap by mouth daily Tamsulosin 0.4mg by mouth daily Patient [facility] within the next week. Patient should return to ED immediately if symptoms return of worsen. Instructions discussed with patient who understood and agreed. Referrals: Cedrick Moore MD [Staff Provider] -
[2017-10-12 09:13] LABS: BASO % 0.4 % (0.0-2.0); EOS # 0.1 K/uL (0.0-0.7); EOS % 1.3 % (0.0-4.0); HEMOGLOBIN 8.5 g/dL (11.0-16.0); LYMPH # 0.7 K/uL (1.0-4.3); LYMPH % 9.7 % (20.0-40.0); MEAN CELL VOLUME 87.8 fL (81.0-99.0); MEAN CORPUSCULAR HEMOGLOBIN 29.9 pg (27.0-31.0); MEAN PLATELET VOLUME 8.1 fL (7.2-11.7); MONO # 0.4 K/uL (0.0-0.8); MONO % 5.6 % (0.0-10.0); PLATELET COUNT 385 K/uL (130-400); RBC 2.84 Mil/uL (3.80-5.20); RED CELL DISTRIBUTION WIDTH 14.4 % (11.5-14.5); WHITE BLOOD COUNT 7.2 K/uL (4.8-10.8)
[2017-10-12 09:31] LABS: ALB/GLOB RATIO 0.7 (1.0-2.1); ALBUMIN 2.7 g/dL (3.5-5.0); ALT/SGPT 26 U/L (9-52); AST/SGOT 21 U/L (14-36); BLOOD UREA NITROGEN 7 mg/dL (7-17); GFR AFRICAN-AMERICAN > 60; GFR NON-AFRICAN AMERICAN > 60
[2017-10-12] MEDS: Divalproex 500 mg DR Tab PO SCH (10:03)
[2017-10-12 11:08] LABS: ANISOCYTOSIS SLIGHT; BANDS 2 % (0-2); EOSINOPHIL 3 % (0-4); LYMPHOCYTE 6 % (20-40); MONOCYTE 4 % (0-10); NEUTROPHIL 85 % (50-75); PLATELET ESTIMATE NORMAL (NORMAL); TOTAL CELLS COUNTED 100
[2017-10-12 11:09] LABS: HYPOCHROMIC SLIGHT; POLYCHROMIC SLIGHT; TOXIC GRANULATION PRESENT
[2017-10-12 16:08] VITALS: BP 126/76; PULSE 81; TEMP 99.3; O2SAT 96
--- NOTE | 2017-10-12 18:15 | CARD ---
APPROVED REPORT EXAM: LIMITED Two-dimensional and M-mode echocardiogram with Doppler and color Doppler. Other Information Quality : GoodRhythm : INDICATION Infection:Rule out subacute bacterial endocarditis Mitral Valve E/A ratio0.0 TDI E/Lateral E'0.0E/Medial E'0.0 LEFT VENTRICLE The left ventricle is normal size. Proximal septal thickening is noted. Left ventricle systolic function is normal. The Ejection Fraction is 60-65%. There is normal LV segmental wall motion. RIGHT VENTRICLE The right ventricle is normal size. There is normal right ventricular wall thickness. The right ventricular systolic function is normal. ATRIA The left atrium is mildly dilated. The right atrium size is normal. The interatrial septum is intact with no evidence for an atrial septal defect. AORTIC VALVE The aortic valve is mildly thickened. The aortic valve is mildly calcified. No aortic regurgitation is present. There is no aortic valvular stenosis. Cannot exclude aortic valvular vegetation. MITRAL VALVE The mitral valve is normal in structure. There is no evidence of mitral valve prolapse. There is no mitral valve stenosis. Mitral regurgitation is mild. TRICUSPID VALVE The tricuspid valve is normal in structure. There is mild tricuspid regurgitation. PULMONIC VALVE The pulmonic valve is not well visualized. There is trace pulmonic valvular regurgitation. GREAT VESSELS The aortic root is normal in size. PERICARDIAL EFFUSION There is no significant pericardial effusion. <Conclusion> Left ventricle systolic function is normal. The Ejection Fraction is 60-65%. No aortic regurgitation is present. The aortic valve is mildly thickened. Cannot exclude aortic valvular vegetation. Mitral regurgitation is mild. There is mild tricuspid regurgitation. There is trace pulmonic valvular regurgitation.
== END 2017-10-12 18:32 | disposition home or self-care (01) | DRG 566 ==
LOC: C.ER 18:08 → C.9E 10-08 00:24 → C.9I 10-08 03:05 → C.3T 10-08 14:45
PROVIDERS: ADMIT Hospitalist; ATTEND Hospitalist
DX: E11.10 Type 2 diabetes mellitus with ketoacidosis without coma (principal); R78.81 Bacteremia; N13.6 Pyonephrosis; F20.9 Schizophrenia, unspecified; N20.2 Calculus of kidney with calculus of ureter; I10 Essential (primary) hypertension; B96.20 Unspecified Escherichia coli [E. coli] as the cause of diseases classified elsewhere; K76.0 Fatty (change of) liver, not elsewhere classified; E78.00 Pure hypercholesterolemia, unspecified; D63.8 Anemia in other chronic diseases classified elsewhere; D25.9 Leiomyoma of uterus, unspecified; F32.9 Major depressive disorder, single episode, unspecified; E78.5 Hyperlipidemia, unspecified; M19.90 Unspecified osteoarthritis, unspecified site; Z79.4 Long term (current) use of insulin; Z98.51 Tubal ligation status

== ENCOUNTER 2017-11-18 20:45 | Emergency (ER) | payer SELFPAY ==
[2017-11-18 20:45] VITALS: BMI 26.5
[2017-11-18 21:32] VITALS: O2SAT 100
--- NOTE | 2017-11-18 23:18 | C.PDOC ---
History Of Present Illness 57 year old female presents to the emergency department with complaints of a fever, right arm pain, and abdominal pain for one week. Patient states that she is not feeling well overall. She states that she is able to tolerate food and drink PO, but denies taking any OTC medications for her symptoms. Time Seen by Provider: 11/18/17 23:17 Chief Complaint (Nursing): Fever History Per: Patient History/Exam Limitations: no limitations Onset/Duration Of Symptoms: Other (one week) Current Symptoms Are (Timing): Still Present Severity: Moderate Pain Scale Rating Of: 4 Location: Right Arm, Abdomen Quality: Pain Past Medical History Reviewed: Historical Data, Nursing Documentation, Vital Signs Vital Signs: Last Vital Signs Temp 98.4 F 11/19/17 03:11 Pulse 86 11/19/17 03:11 Resp 16 11/19/17 03:11 BP 152/70 H 11/19/17 03:11 Pulse Ox 100 11/19/17 03:11 - Medical History PMH: Arthritis (L SH), Depression, Diabetes, HTN, Hypercholesterolemia, Hyperlipidemia, Schizophrenia Denies: Diverticulitis, Chronic Kidney Disease Surgical History: - [facility] Procedures OTHER SKIN & SUBQ I D (07/30/13) Family History: States: No Known Family Hx - Social History Hx Tobacco Use: No Hx Alcohol Use: No Hx Substance Use: No - Immunization History Hx Tetanus Toxoid Vaccination: Yes Hx Influenza Vaccination: Yes Hx Pneumococcal Vaccination: Yes Review Of Systems Constitutional: Positive for: Fever Gastrointestinal: Positive for: Abdominal Pain Musculoskeletal: Positive for: Arm Pain (right arm) Physical Exam - Physical Exam Appears: Non-toxic, No Acute Distress Skin: Warm, Dry Head: Normacephalic Eye(s): bilateral: Normal Inspection Ear(s): Bilateral: Normal Oral Mucosa: Moist Throat: No Erythema, No Exudate, Other (oropharynx clear) Neck: Trachea Midline, Supple Chest: Symmetrical, No Tenderness Cardiovascular: Rhythm Regular, No Murmur Respiratory: No Rales, No Rhonchi, No Wheezing Gastrointestinal/Abdominal: Soft, No Tenderness, No Distention, No Guarding, No Rebound Neurological/Psych: Oriented x3 ED Course And Treatment - Laboratory Results Result Diagrams: 11/19/17 00:18 11/19/17 00:18 O2 Sat by Pulse Oximetry: 100 (RA) Pulse Ox Interpretation: Normal - Radiology CXR: Interpreted by Me, Viewed By Me CXR Interpretation: No: Infiltrates, Fracture, Pnemothorax Progress Note: Plan: Venous Blood Gas. CMP. CBC. CXR Two Views. Urinalysis Reevaluation Time: 03:24 Reassessment Condition: Improved Medical Decision Making Medical Decision Making: Upon provider reevaluation patient is feeling better, is medically stable, and requires no further treatment in the ED at this time. Patient will be discharged home with Rx for macrobid. Counseling was provided and all questions were answered regarding diagnosis and need for follow up with the referred clinic. There is agreement to discharge plan. Return if symptoms persist or worsen. Disposition Counseled Patient/Family Regarding: Studies Performed, Diagnosis, Need For Followup, Rx Given - Disposition Referrals: [facility] [Outside] [facility] [Outside] Disposition: HOME/ ROUTINE Disposition Time: 23:18 Condition: FAIR Additional Instructions: Please return if symptoms recur Prescriptions: Nitrofurantoin Macrocrystals [Macrobid] 1 cap PO BID #14 cap Instructions: Urinary Tract Infection, Adult (DC) Forms: [facility] (Djiboutian) - Clinical Impression Clinical Impression: UTI (urinary tract infection) - Scribe Statement The provider has reviewed the documentation as recorded by the Scribe (Deandre Han) Provider Attestation: All medical record entries made by the Scribe were at my direction and personally dictated by me. I have reviewed the chart and agree that the record accurately reflects my personal performance of the history, physical exam, medical decision making, and the department course for this patient. I have also personally directed, reviewed, and agree with the discharge instructions and disposition.
[2017-11-19 00:22] LABS: BASO % 0.7 % (0.0-2.0); EOS # 0.2 K/uL (0.0-0.7); HEMOGLOBIN 8.9 g/dL (11.0-16.0); LYMPH # 1.4 K/uL (1.0-4.3); LYMPH % 24.2 % (20.0-40.0); MEAN CELL VOLUME 80.5 fL (81.0-99.0); MEAN CORPUSCULAR HEMOGLOBIN 27.9 pg (27.0-31.0); MEAN CORPUSCULAR HGB CONC 34.6 g/dL (33.0-37.0); MONO # 0.4 K/uL (0.0-0.8); MONO % 6.2 % (0.0-10.0); NEUT # 3.9 K/uL (1.8-7.0); NEUT % 65.9 % (50.0-75.0); RBC 3.2 Mil/uL (3.80-5.20); RED CELL DISTRIBUTION WIDTH 14.3 % (11.5-14.5); WHITE BLOOD COUNT 5.9 K/uL (4.8-10.8)
[2017-11-19 00:25] LABS: VENOUS BLOOD GAS BASE EXCESS -0.4 mmol/L (0.0-2.0); VENOUS BLOOD GAS PCO2 45 mmHg (40-60); VENOUS BLOOD GAS PO2 18 mm/Hg (30-55); VENOUS BLOOD PH 7.36 (7.32-7.43)
[2017-11-19 00:49] LABS: ALB/GLOB RATIO 0.7 (1.0-2.1); ALBUMIN 3.8 g/dL (3.5-5.0); CALCIUM 9.2 mg/dl (8.6-10.4)
[2017-11-19] MEDS ORDERED: Sodium Chloride 0.9% 1,000 ML IV ONE (01:33)
[2017-11-19 03:05] LABS: SQUAMOUS EPITHIAL 1 /hpf (0-5); URINE BACTERIA RARE (<OCC); URINE BILIRUBIN NEGATIVE (NEGATIVE); URINE CLARITY Hazy (Clear); URINE COLOR Yellow (YELLOW); URINE GLUCOSE (UA) 2+ mg/dL (Normal); URINE LEUKOCYTE ESTERASE 3+ Leu/uL (Negative); URINE PROTEIN 1+ mg/dL (NEGATIVE); URINE UROBILINOGEN NORMAL mg/dL (0.2-1.0)
[2017-11-19 03:21] LABS: URINE BLOOD TRACE (NEGATIVE)
[2017-11-19] MEDS ORDERED: cefTRIAXone IV 1 gm in Dextros 50 ML IVPB ONE (03:23)
[2017-11-19 04:57] VITALS: BP 169/81; PULSE 87; RESP 20; TEMP 98.3
--- NOTE | 2017-11-19 21:10 | RAD ---
Date of service: 11/19/2017 HISTORY: SOB COMPARISON: Comparison is made with 10/08/2017 TECHNIQUE: Chest PA and lateral FINDINGS: LUNGS: No active pulmonary disease. PLEURA: No significant pleural effusion identified. No pneumothorax apparent. CARDIOVASCULAR: Normal. OSSEOUS STRUCTURES: No significant abnormalities. VISUALIZED UPPER ABDOMEN: Normal. OTHER FINDINGS: None. IMPRESSION: No active disease.
== END 2017-11-19 04:58 | disposition home or self-care (01) ==
LOC: C.ER 20:45
DX: N39.0 Urinary tract infection, site not specified (principal); I10 Essential (primary) hypertension; F20.9 Schizophrenia, unspecified; E11.9 Type 2 diabetes mellitus without complications; E78.00 Pure hypercholesterolemia, unspecified; E78.5 Hyperlipidemia, unspecified
CPT/HCPCS: 71046; 80053; 81001; 82803; 85025; 96361; 96374; 99285; J0696; J7030

== ENCOUNTER 2018-04-13 03:17 | Inpatient (IN) | payer MEDICAID, SELFPAY ==
[2018-03-28 11:27] VITALS: BMI 26.5
[2018-04-13] MEDS ORDERED: Sodium Chloride 0.9% 1,000 ML IV ONE (04:02)
--- NOTE | 2018-04-13 04:03 | C.PDOC ---
History Of Present Illness 58 year old female presents to the ER with a complaint of upper quadrant abdominal pain for the past 4 days associated with vomiting. Denies diarrhea or dysuria. Chief Complaint (Nursing): Abdominal Pain History Per: Patient History/Exam Limitations: no limitations Onset/Duration Of Symptoms: Days (4) Current Symptoms Are (Timing): Still Present Location Of Pain/Discomfort: Other (Upper quadrants) Radiation Of Pain To:: None Quality Of Discomfort: Unable To Describe Associated Symptoms: Vomiting. denies: Diarrhea, Other (Dysuria) Exacerbating Factors: None Alleviating Factors: None Recent travel outside of the [place]: No Abnormal Vaginal Bleeding: No Past Medical History Reviewed: Historical Data, Nursing Documentation, Vital Signs Vital Signs: Last Vital Signs Temp 98.5 F 04/13/18 03:37 Pulse 100 H 04/13/18 03:37 Resp 20 04/13/18 03:37 BP 193/93 H 04/13/18 03:37 Pulse Ox 99 04/13/18 03:37 - Medical History PMH: Arthritis (L SH), Depression, Diabetes, HTN, Hypercholesterolemia, Hyperlipidemia, Schizophrenia Denies: Diverticulitis, Chronic Kidney Disease Surgical History: - [facility] Procedures OTHER SKIN & SUBQ I D (07/30/13) Family History: States: Unknown Family Hx - Social History Hx Tobacco Use: No Hx Alcohol Use: No Hx Substance Use: No - Immunization History Hx Tetanus Toxoid Vaccination: Yes Hx Influenza Vaccination: Yes Hx Pneumococcal Vaccination: Yes Review Of Systems Constitutional: Negative for: Fever, Chills Cardiovascular: Negative for: Chest Pain, Palpitations Respiratory: Negative for: Cough, Shortness of Breath Gastrointestinal: Positive for: Vomiting, Abdominal Pain. Negative for: Diarrhea Genitourinary: Negative for: Dysuria Neurological: Negative for: Weakness, Numbness Physical Exam - Physical Exam Appears: Non-toxic, No Acute Distress Skin: Normal Color, Warm, Dry Head: Atraumatic, Normacephalic Eye(s): bilateral: Normal Inspection Oral Mucosa: Moist Neck: Normal, Supple Chest: Symmetrical, No Tenderness Cardiovascular: Rhythm Regular Respiratory: Normal Breath Sounds, No Rales, No Rhonchi, No Wheezing Gastrointestinal/Abdominal: Soft, Tenderness (Epigastric, Bilateral upper quadrants), No Guarding, No Rebound Back: No CVA Tenderness Neurological/Psych: Oriented x3, Normal Speech ED Course And Treatment - Laboratory Results Result Diagrams: 04/13/18 04:48 04/13/18 04:48 ECG: Interpreted By Me, Viewed By Me ECG Rhythm: Sinus Rhythm ECG Interpretation: Normal, No Acute Changes Interpretation Of ECG: NSR, normal trcings. Rate From EC O2 Sat by Pulse Oximetry: 99 (Room air) Pulse Ox Interpretation: Normal Progress Note: CT abd/pel, blood work, and urinalysis ordered. IV fluids and zofran administered. Disposition Discussed With Dr.: Quentin Tong Doctor Will See Patient In The: Hospital Counseled Patient/Family Regarding: Diagnosis - Disposition Disposition: HOSPITALIZED Disposition Time: 06:47 Condition: STABLE Forms: [facility] (Bulgarian) - POA Present On Arrival: None - Clinical Impression Clinical Impression: Abdominal pain, Pleural effusion, Pulmonary edema, Abdominal pain, Renal insufficiency - Scribe Statement The provider has reviewed the documentation as recorded by the Scribe Vin Delacruz All medical record entries made by the Scribe were at my direction and personally dictated by me. I have reviewed the chart and agree that the record accurately reflects my personal performance of the history, physical exam, medical decision making, and the department course for this patient. I have also personally directed, reviewed, and agree with the discharge instructions and disposition.
[2018-04-13 04:20] LABS: SQUAMOUS EPITHIAL < 1 /hpf (0-5); URINE BACTERIA OCC (<OCC); URINE BILIRUBIN NEGATIVE (NEGATIVE); URINE BLOOD 1+ (NEGATIVE); URINE CLARITY Clear (Clear); URINE COLOR Straw (YELLOW); URINE GLUCOSE (UA) NORMAL (Normal); URINE LEUKOCYTE ESTERASE 2+ Leu/uL (Negative); URINE PROTEIN 2+ mg/dL (NEGATIVE); URINE UROBILINOGEN NORMAL mg/dL (0.2-1.0)
[2018-04-13] MEDS ORDERED: Sodium Chloride 0.9% 1,000 ML ONE (04:35)
[2018-04-13 04:53] LABS: EOS # 0.2 K/uL (0.0-0.7); NRBC % 0.1 % (0.0-2.0); WHITE BLOOD COUNT 6.4 K/uL (4.8-10.8)
[2018-04-13 05:03] LABS: ALB/GLOB RATIO 0.9 (1.0-2.1); ALBUMIN 4.5 g/dL (3.5-5.0)
[2018-04-13 05:07] LABS: BASO % 0.5 % (0.0-2.0); EOS % 3.7 % (0.0-4.0); HEMOGLOBIN 10.2 g/dL (11.0-16.0); LYMPH # 1.1 K/uL (1.0-4.3); LYMPH % 17.6 % (20.0-40.0); MEAN CELL VOLUME 86.6 fL (81.0-99.0); MEAN CORPUSCULAR HEMOGLOBIN 28.8 pg (27.0-31.0); MEAN CORPUSCULAR HGB CONC 33.2 g/dL (33.0-37.0); MEAN PLATELET VOLUME 7.4 fL (7.2-11.7); MONO # 0.4 K/uL (0.0-0.8); MONO % 6.3 % (0.0-10.0); NEUT # 4.6 K/uL (1.8-7.0); NEUT % 71.9 % (50.0-75.0); RBC 3.53 Mil/uL (3.80-5.20); RED CELL DISTRIBUTION WIDTH 15.7 % (11.5-14.5)
[2018-04-13] MEDS ORDERED: Labetalol 25mg/5ml Syringe IVP STA (06:32)
[2018-04-13] MEDS ORDERED: Labetalol 5mg/ml (4ml) ONE (06:35)
[2018-04-13] MEDS ORDERED: Glucagon Recombinant 1 mg Inj IM PRN (07:26)
[2018-04-13] MEDS ORDERED: Dextrose 50% SYRINGE Inj (50 ml) IVP PRN (07:26)
[2018-04-13 09:42] LABS: INR 1.2; PROTHROMBIN TIME 13.3 SECONDS (9.7-12.2)
--- NOTE | 2018-04-13 09:43 | CP.PCM.HP ---
<Amandeep Barajas - Last Filed: 04/13/18 17:20> History of Present Illness - History of Present Illness History of Present Illness: PGY-[address] Sosa Service cc: abdominal pain HPI: Patient is a 58 year old female with pmhx of IDDMII, HTN, HLD, Arthritis, nephrolithiasis, schizophrenia, depression, that came to ED today for epigastric pain that started 4 days ago. Patient states the epigastric pain feels like a burning pain, non radiating, associated with 3 episodes of yellow vomit and black diarrhea that happened in the last 4 days. Diarrhea and vomit happened at the same time period. Patient admits to have taking pepto bismuth and lemon for the abdominal pain, but it did not help. Patient admits to associated headaches, dizziness, as well as mucus tainted with blood, but no active bleeding from nose. Patient states she has not eaten since her symptoms started. Admits to mild wheezing at night times, and to chills, but no subjective fevers. denies NSAID use, recent illnesses or sick contacts. had recent travel to [place] to visit grandchildren. Denies diaphoresis, chest pain, cough, sore throat, skin changes, leg pain, urinary symptoms like burning, painful urination or blood in the urine. denies bright red blood in the stool. PMD: clinic All: NKDA Pmhx: IDDMII, HTN, HLD, Arthritis, nephrolithiasis, schizophrenia, depression Shx: C section, tubal ligation (25 years ago) Meds: risperidone 1mg PO HS, Simvastatin 10mg Po HS, Zoloft 100 mg PO QD, losartan 100 mg PO QD, Novolin 15 U-20 U Qdaily, Depakote 250 mg PO BID ASA 81 mg PO Daily Fmhx: CA liver (mother) CA in back (father), breast CA (sister), DM ( 2 brothers) Schx: denies smoking, alcohol or illicit drug use, patient is unemployed and lives with a domestic partner Present on Admission - Present on Admission Any Indicators Present on Admission: No Review of Systems - Review of Systems All systems: reviewed and no additional remarkable complaints except Review of Systems: as stated in HPI Past Patient History - Infectious Disease Hx of Infectious Diseases: None - Past Medical History & Family History Past Medical History?: Yes - Past Social History Smoking Status: Never Smoked - CARDIAC Hx Hypercholesterolemia: Yes Hx Hypertension: Yes - PULMONARY Hx Respiratory Disorders: No - NEUROLOGICAL Hx Neurological Disorder: Yes Other/Comment: schizophrenia - HEENT Hx HEENT Problems: No - RENAL Hx Chronic Kidney Disease: No - ENDOCRINE/METABOLIC Hx Diabetes Mellitus Type 2: Yes - HEMATOLOGICAL/ONCOLOGICAL Hx Blood Disorders: No - INTEGUMENTARY Hx Dermatological Problems: No - MUSCULOSKELETAL/RHEUMATOLOGICAL Hx Falls: No - GASTROINTESTINAL Hx Diverticulitis: No - GENITOURINARY/GYNECOLOGICAL Hx Genitourinary Disorders: Yes Hx Urinary Tract Infection: Yes - PSYCHIATRIC Hx Depression: Yes Hx Schizophrenia: Yes Hx Substance Use: No - SURGICAL HISTORY Hx Surgeries: Yes Hx Tubal Ligation: Yes Other/Comment: ;fibroids removed - ANESTHESIA Hx Anesthesia: Yes Hx Anesthesia Reactions: No Meds Allergies/Adverse Reactions: Allergies Allergy/AdvReac Type Severity Reaction Status Date / Time No Known Allergies Allergy Verified 10/07/17 18:29 Physical Exam - Constitutional Appears: Non-toxic, No Acute Distress - Head Exam Head Exam: ATRAUMATIC, NORMAL INSPECTION, NORMOCEPHALIC - Eye Exam Eye Exam: EOMI, Normal appearance Pupil Exam: PERRL - ENT Exam ENT Exam: Mucous Membranes Moist, Normal Exam - Neck Exam Neck exam: Positive for: Normal Inspection - Respiratory Exam Respiratory Exam: Decreased Breath Sounds, Clear to Auscultation Bilateral, NORMAL BREATHING PATTERN. absent: Accessory Muscle Use, Rales, Rhonchi, Wheezes, Respiratory Distress Additional comments: lower lobe/lung bases decreased breath sounds b/l - Cardiovascular Exam Cardiovascular Exam: REGULAR RHYTHM, +S1, +S2 - GI/Abdominal Exam GI & Abdominal Exam: Normal Bowel Sounds, Soft, Tenderness. absent: Distended, Guarding, Rebound, Rigid Additional comments: epigastric area tenderness on deep palpation negative oviedo sign - Rectal Exam Rectal Exam: NORMAL INSPECTION. absent: Bloody Stool, Hemorrhoids, Fecal Impaction - Extremities Exam Extremities exam: Positive for: normal inspection, pedal pulses present. Negative for: full ROM, pedal edema, tenderness - Back Exam Back exam: FULL ROM, NORMAL INSPECTION. absent: CVA tenderness (L), CVA tenderness (R), paraspinal tenderness, rash noted, tenderness, vertebral tenderness - Neurological Exam Neurological exam: Alert, CN II-XII Intact, Oriented x3 - Psychiatric Exam Psychiatric exam: Normal Affect, Normal Mood - Skin Skin Exam: Dry, Intact, Normal Color, Warm Results - Vital Signs Recent Vital Signs: Last Vital Signs Temp 98.9 F 04/13/18 08:00 Pulse 83 04/13/18 08:00 Resp 20 04/13/18 08:00 BP 171/75 H 04/13/18 08:00 Pulse Ox 98 04/13/18 08:00 - Labs Result Diagrams: 04/13/18 04:48 04/13/18 10:03 Labs: Laboratory Results - last 24 hr 04/13/18 04/13/18 04/13/18 04:11 04:48 04:48 WBC 6.4 RBC 3.53 L Hgb 10.2 L Hct 30.6 L MCV 86.6 MCH 28.8 MCHC 33.2 RDW 15.7 H Plt Count 254 MPV 7.4 Neut % (Auto) 71.9 Lymph % (Auto) 17.6 L [place] % (Auto) 6.3 Eos % (Auto) 3.7 Baso % (Auto) 0.5 Neut # (Auto) 4.6 Lymph # (Auto) 1.1 [place] # (Auto) 0.4 Eos # (Auto) 0.2 Baso # (Auto) 0.0 PT INR Sodium 134 Potassium 5.3 H Chloride 103 Carbon Dioxide 20 L Anion Gap 16 BUN 37 H Creatinine 2.2 H Est GFR ( Amer) 28 Est GFR (Non-Af Amer) 23 POC Glucose (mg/dL) Random Glucose 135 H D Calcium 9.0 Total Bilirubin 0.6 AST 26 ALT 21 Alkaline Phosphatase 122 Total Protein 9.5 H Albumin 4.5 Globulin 4.9 H Albumin/Globulin Ratio 0.9 L Lipase 152 Urine Color Straw Urine Clarity Clear Urine pH 7.0 Ur Specific [place] 1.008 Urine Protein 2+ H Urine Glucose (UA) Normal Urine Ketones Negative Urine Blood 1+ H Urine Nitrate Negative Urine Bilirubin Negative Urine Urobilinogen Normal Ur Leukocyte Esterase 2+ H Urine WBC (Auto) 54 H Urine RBC (Auto) 14 H Ur Squamous Epith Cells < 1 Urine Bacteria Occ H 04/13/18 04/13/18 08:15 09:24 WBC RBC Hgb Hct MCV MCH MCHC RDW Plt Count MPV Neut % (Auto) Lymph % (Auto) [place] % (Auto) Eos % (Auto) Baso % (Auto) Neut # (Auto) Lymph # (Auto) [place] # (Auto) Eos # (Auto) Baso # (Auto) PT 13.3 H INR 1.2 Sodium Potassium Chloride Carbon Dioxide Anion Gap BUN Creatinine Est GFR ( Amer) Est GFR (Non-Af Amer) POC Glucose (mg/dL) 117 H Random Glucose Calcium Total Bilirubin AST ALT Alkaline Phosphatase Total Protein Albumin Globulin Albumin/Globulin Ratio Lipase Urine Color Urine Clarity Urine pH Ur Specific [place] Urine Protein Urine Glucose (UA) Urine Ketones Urine Blood Urine Nitrate Urine Bilirubin Urine Urobilinogen Ur Leukocyte Esterase Urine WBC (Auto) Urine RBC (Auto) Ur Squamous Epith Cells Urine Bacteria Assessment & Plan - Assessment and Plan (Free Text) Assessment: Patient is a 58 year old Female with pmhx DMII, HTN, arthritis, nephrolithiasis, HLD, schizophrenia admitted for evaluation of epigastric pain associated with vomiting/diarrhea, with dark stool, admits to taking Pepto bismuth, CT shows bilateral pleural effusion, pending CT abd/pelvis w/o contrast. Hypertensive emergency in ER, labetalol and lasix, blood pressure downtrending at this time. Plan: Epigastric pain - burning pain as per patient - Lipase normal - CT abd/pelvbvis without IV or PO contrast - diverticulosis noted, pending official results - STAT CT abd/pelvis WITH PO CONTRAST - F/U - zofran 4mg IV Q6H PRN nausea - Protonix 40 mg IV Qdaily - GI consult - DR Bryant - recnikita is appreciated - eval for epigastric pain and diarrhea Diarrhea - dark stools reported - pt has taken Pepto bismuth before dark stools. - Occult blood x 2 - f/u results - Stool ova and parasite, stool culture, fecal leukocytes - CT abdomen/pelvis with PO contrast Pleural effusion - Prior echo (September 2017) - mild LVH, systolic function is normal - repeat echo - f/u - check pro BNP - Pulmonology consult - Dr Mcmahon - help is appreciated Hypertensive urgency - worsened by nausea/vomiting/diarrhea - labetalol IV at ER , lasix 20mg PO x 1 dose at ED - improved bp - re-start norvasc 5mg PO Qd - was taking in the past, but does not take at home currently Anemia - ret count - Iron panel - iron serum, TIBC, ferritin, B12, folate - occult blood Acute on chronic renal insufficiency - etiology - diarrhea, nausea, hx of nephrolithiasis ( no stone on current CT test, previous 3.5 mm obstructing mid distal left ureter) - renal and bladder U/S Hyperkalemia - 5.3 on admission - hold coozar due to s/e of hyperkalemia - repeat BMP hx of Nephrolithiasis - Flomax 0.4 mg PO x 1 daily - U/A: pyruira, hematuria - patient did not follow with urologist for nephrolithiasis in last CT scan - current CT no stone - Urology consult - help is appeciated hx of insulin dependent DMII - HbA1C, lipid panel f/u - accuchecks Q6h - clear diabetic diet - resume Insulin regimen - novolin R 15 U ACB - patient took insulin this morning psych hx - schizophrenia - risperidone 1mg PO HS - Depakote 500mg PO Daily - Zoloft 100mg PO qHS Prophylactic measure - SCDs B/L - protonix 40mg IV Q daily - hold anticoagulation due to "black stools" reported by patient - no fluids at this time - follow up am labs - clear diet - diabetic moderated CHO Plan discussed with Dr Ian Barajas, PGY-1 - Date & Time Date: 04/13/18 Time: 07:15 <Abril Sosa V - Last Filed: 04/15/18 18:00> Results - Vital Signs Recent Vital Signs: Last Vital Signs Temp 98.1 F 04/15/18 15:48 Pulse 85 04/15/18 15:48 Resp 20 04/15/18 15:48 BP 132/74 04/15/18 15:48 Pulse Ox 96 04/15/18 15:48 - Labs Result Diagrams: 04/15/18 11:09 04/15/18 07:02 Labs: Laboratory Results - last 24 hr 04/14/18 04/15/18 04/15/18 21:31 06:35 07:02 WBC 4.4 L RBC 2.63 L Hgb 7.7 L Hct 23.0 L MCV 87.4 MCH 29.4 MCHC 33.7 RDW 15.4 H Plt Count 182 MPV 7.4 Neut % (Auto) 58.9 Lymph % (Auto) 26.3 [place] % (Auto) 9.0 Eos % (Auto) 5.1 H Baso % (Auto) 0.7 Neut # (Auto) 2.6 Lymph # (Auto) 1.2 [place] # (Auto) 0.4 Eos # (Auto) 0.2 Baso # (Auto) 0.0 Sodium Potassium Chloride Carbon Dioxide Anion Gap BUN Creatinine Est GFR ( Amer) Est GFR (Non-Af Amer) POC Glucose (mg/dL) 215 H 168 H Random Glucose Calcium Phosphorus Magnesium Total Bilirubin AST ALT Alkaline Phosphatase Total Protein Albumin Globulin Albumin/Globulin Ratio Urine Color Urine Clarity Urine pH Ur Specific [place] Urine Protein Urine Glucose (UA) Urine Ketones Urine Blood Urine Nitrate Urine Bilirubin Urine Urobilinogen Ur Leukocyte Esterase Urine WBC (Auto) Urine RBC (Auto) Ur Squamous Epith Cells Stool Leukocytes, Qual 04/15/18 04/15/18 04/15/18 07:02 11:09 11:13 WBC 4.6 L RBC 3.00 L Hgb 8.9 L Hct 26.4 L MCV 88.0 MCH 29.7 MCHC 33.8 RDW 15.1 H Plt Count 217 MPV 7.4 Neut % (Auto) Lymph % (Auto) [place] % (Auto) Eos % (Auto) Baso % (Auto) Neut # (Auto) Lymph # (Auto) [place] # (Auto) Eos # (Auto) Baso # (Auto) Sodium 136 Potassium 5.1 Chloride 107 Carbon Dioxide 20 L Anion Gap 14 BUN 32 H Creatinine 2.3 H Est GFR ( Amer) 26 Est GFR (Non-Af Amer) 22 POC Glucose (mg/dL) 98 Random Glucose 161 H D Calcium 8.2 L Phosphorus 5.1 H Magnesium 1.9 Total Bilirubin 0.2 AST 28 ALT 22 Alkaline Phosphatase 91 Total Protein 7.2 Albumin 3.4 L Globulin 3.8 Albumin/Globulin Ratio 0.9 L Urine Color Urine Clarity Urine pH Ur Specific [place] Urine Protein Urine Glucose (UA) Urine Ketones Urine Blood Urine Nitrate Urine Bilirubin Urine Urobilinogen Ur Leukocyte Esterase Urine WBC (Auto) Urine RBC (Auto) Ur Squamous Epith Cells Stool Leukocytes, Qual 04/15/18 04/15/18 11:40 13:41 WBC RBC Hgb Hct MCV MCH MCHC RDW Plt Count MPV Neut % (Auto) Lymph % (Auto) [place] % (Auto) Eos % (Auto) Baso % (Auto) Neut # (Auto) Lymph # (Auto) [place] # (Auto) Eos # (Auto) Baso # (Auto) Sodium Potassium Chloride Carbon Dioxide Anion Gap BUN Creatinine Est GFR ( Amer) Est GFR (Non-Af Amer) POC Glucose (mg/dL) Random Glucose Calcium Phosphorus Magnesium Total Bilirubin AST ALT Alkaline Phosphatase Total Protein Albumin Globulin Albumin/Globulin Ratio Urine Color Straw Urine Clarity Clear Urine pH 6.0 Ur Specific [place] 1.005 Urine Protein 2+ H Urine Glucose (UA) Normal Urine Ketones Negative Urine Blood 1+ H Urine Nitrate Negative Urine Bilirubin Negative Urine Urobilinogen Normal Ur Leukocyte Esterase 2+ H Urine WBC (Auto) 21 H Urine RBC (Auto) 10 H Ur Squamous Epith Cells 1 Stool Leukocytes, Qual Negative
[2018-04-13 10:14] LABS: CALCIUM 9.2 mg/dl (8.6-10.4)
[2018-04-13 10:21] LABS: IRON 40 ug/dL (37-170)
[2018-04-13 10:33] LABS: % IRON SATURATION 13 (20-55); TOTAL IRON BINDING CAPACITY 319 ug/dL (250-450)
--- NOTE | 2018-04-13 10:55 | CP.PCM.CON ---
History of Present Illness - History of Present Illness History of Present Illness: HPI: Patient is a 57 year old female with past medical history of HTN, HLD, DM, schizophrenia, who presents to the clinic with complaints of diffuse abdominal pain that started 2-3 days ago. Patient reports associated symptoms of diarrhea, nausea, subjective fever. Patient denies chest pain, palpitations, SOB, dizziness, headache, blurry vision, numbness and tingling. Noted to have normal renal function 10/26; worsened in 11/26; now rising. PMD: Dr. Roberson Past medical history: HTN, HLD, DM, schizophrenia Past surgical history: tubal ligation, colonoscopy Medications: Depakote 250mg PO BID, Metformin 500mg BID; Sertraline 100mg HS; Risperidone 1mg HS; Losartan Potassium 100mg daily; Simvastatin 10mg HS, Ferrous sulfate 325mg PO daily, Glimepiride 4mg PO daily, Insulin 70/30 44 units SC daily with breakfast, Insulin 70/30 34 units SC daily with dinner Allergies: NKDA Family history: denies family history of cardiac disease; family history of DM (sister, brother); history of cancer (father- "back", mother- colon, sister- breast); CKD - negative Social history: denies tobacco/alcohol/drug use; 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 absent: Fever - EENT Ears: absent: As Per HPI, Decreased Hearing, Ear Discharge, Ear Pain, Tinnitus, Abnormal Hearing, Disequilibrium, Dizziness, Other Nose/Mouth/Throat: absent: As Per HPI, Epistaxis, Nasal Congestion, Nasal Discharge, Nasal Obstruction, Nasal Trauma, Nose Pain, Post Nasal Drip, Sinus Pain, Sinus Pressure, Bleeding Gums, Change in Voice, Dental Pain, Dry Mouth, Dysphagia, Halitosis, Hoarsness, Lip Swelling, Mouth Lesions, Mouth Pain, Odynophagia, Sore Throat, Throat Swelling, Tongue Swelling, Facial Pain, Neck Pain, Neck Mass, Other - Cardiovascular Cardiovascular: absent: As Per HPI, Acrocyanosis, Chest Pain, Chest Pain at Rest, Chest Pain with Activity, Claudication, Diaphoresis, Dyspnea, Dyspnea on Exertion, Edema, Irregular Heart Rhythm, Pain Radiating to Arm/Neck/Jaw, Leg Edema, Leg Ulcers, Lightheadedness, Orthopnea, Palpitations, Paroxysmal Nocturnal Dyspnea, Pedal Edema, Radiating Pain, Rapid Heart Rate, Slow Heart Rate, Syncope, Other - Respiratory Respiratory: absent: As Per HPI, Cough, Dyspnea, Hemoptysis, Dyspnea on Exertion, Wheezing, Snoring, Stridor, Pain on Inspiration, Chest Congestion, Excessive Mucous Production, Change in Mucous Color, Pain with Coughing, Other - Genitourinary Genitourinary: Voiding Freq/Small Amts - Musculoskeletal Musculoskeletal: Muscle Cramps, Muscle Weakness, Myalgias Past Patient History - Infectious Disease Hx of Infectious Diseases: None - Past Medical History & Family History Past Medical History?: Yes Past Family History: Reviewed and not pertinent - Past Social History Smoking Status: Never Smoked Chewing Tobacco Use: No Cigar Use: No Alcohol: None Drugs: Denies Home Situation {Lives}: With Family - CARDIAC Hx Hypercholesterolemia: Yes Hx Hypertension: Yes - PULMONARY Hx Respiratory Disorders: No - NEUROLOGICAL Hx Neurological Disorder: Yes Other/Comment: schizophrenia - HEENT Hx HEENT Problems: No - RENAL Hx Chronic Kidney Disease: No - ENDOCRINE/METABOLIC Hx Diabetes Mellitus Type 2: Yes - HEMATOLOGICAL/ONCOLOGICAL Hx Blood Disorders: No - INTEGUMENTARY Hx Dermatological Problems: No - MUSCULOSKELETAL/RHEUMATOLOGICAL Hx Falls: No - GASTROINTESTINAL Hx Diverticulitis: No - GENITOURINARY/GYNECOLOGICAL Hx Genitourinary Disorders: Yes Hx Urinary Tract Infection: Yes - PSYCHIATRIC Hx Depression: Yes Hx Schizophrenia: Yes Hx Substance Use: No - SURGICAL HISTORY Hx Surgeries: Yes Hx Tubal Ligation: Yes Other/Comment: ;fibroids removed - ANESTHESIA Hx Anesthesia: Yes Hx Anesthesia Reactions: No Meds Allergies/Adverse Reactions: Allergies Allergy/AdvReac Type Severity Reaction Status Date / Time No Known Allergies Allergy Verified 10/07/17 18:29 - Medications Medications: Current Medications Amlodipine Besylate (Norvasc) 5 mg PO DAILY JOSE LUIS Dextrose (Dextrose 50% Inj) 0 ml IVP .STAT PRN; Protocol PRN Reason: Hypoglycemia Protocol Dextrose (Glutose 15) 0 gm PO .ONCE PRN; Protocol PRN Reason: Hypoglycemia Protocol Divalproex Sodium (Depakote Dr) 500 mg PO DAILY JOSE LUIS Glucagon (Glucagen Diagnostic Kit) 0 mg IM .STAT PRN; Protocol PRN Reason: Hypoglycemia Protocol Dextrose (Dextrose 5% In Water 1000 Ml) 1,000 mls @ 0 mls/hr IV .Q0M PRN; Protocol PRN Reason: Hypoglycemia Protocol Insulin Human Regular (Novolin R) 15 unit SC ACB JOSE LUIS Ondansetron HCl (Zofran Inj) 4 mg IVP Q6 PRN PRN Reason: Nausea/Vomiting Pantoprazole Sodium (Protonix Inj) 40 mg IVP Q24H JOSE LUIS Risperidone (Risperdal Tab) 1 mg PO HS JOSE LUIS Rosuvastatin Calcium (Crestor) 2.5 mg PO HS JOSE LUIS Sertraline HCl (Zoloft) 100 mg PO HS JOSE LUIS Tamsulosin HCl (Flomax) 0.4 mg PO DAILY JOSE LUIS Physical Exam - Constitutional Appears: No Acute Distress, Chronically Ill - Head Exam Head Exam: ATRAUMATIC, NORMAL INSPECTION - Eye Exam Eye Exam: EOMI, Normal appearance - Neck Exam Neck exam: Positive for: Normal Inspection. Negative for: Tenderness - Respiratory Exam Respiratory Exam: Clear to Auscultation Bilateral, NORMAL BREATHING PATTERN - Cardiovascular Exam Cardiovascular Exam: REGULAR RHYTHM, +S1 - GI/Abdominal Exam GI & Abdominal Exam: Soft. absent: Tenderness - Extremities Exam Extremities exam: Positive for: normal inspection. Negative for: tenderness - Neurological Exam Neurological exam: Alert, CN II-XII Intact - Skin Skin Exam: Dry, Warm Results - Vital Signs Recent Vital Signs: Last Vital Signs Temp 98.9 F 04/13/18 08:00 Pulse 83 04/13/18 08:00 Resp 20 04/13/18 08:00 BP 171/75 H 04/13/18 08:00 Pulse Ox 98 04/13/18 08:00 - Labs Result Diagrams: 04/13/18 04:48 04/13/18 10:03 Labs: Laboratory Results - last 24 hr 04/13/18 04/13/18 04/13/18 04:11 04:48 04:48 WBC 6.4 RBC 3.53 L Hgb 10.2 L Hct 30.6 L MCV 86.6 MCH 28.8 MCHC 33.2 RDW 15.7 H Plt Count 254 MPV 7.4 Neut % (Auto) 71.9 Lymph % (Auto) 17.6 L [place] % (Auto) 6.3 Eos % (Auto) 3.7 Baso % (Auto) 0.5 Neut # (Auto) 4.6 Lymph # (Auto) 1.1 [place] # (Auto) 0.4 Eos # (Auto) 0.2 Baso # (Auto) 0.0 Retic Count PT INR Sodium 134 Potassium 5.3 H Chloride 103 Carbon Dioxide 20 L Anion Gap 16 BUN 37 H Creatinine 2.2 H Est GFR ( Amer) 28 Est GFR (Non-Af Amer) 23 POC Glucose (mg/dL) Random Glucose 135 H D Calcium 9.0 Iron TIBC % Saturation Ferritin Total Bilirubin 0.6 AST 26 ALT 21 Alkaline Phosphatase 122 Total Protein 9.5 H Albumin 4.5 Globulin 4.9 H Albumin/Globulin Ratio 0.9 L Lipase 152 Urine Color Straw Urine Clarity Clear Urine pH 7.0 Ur Specific [place] 1.008 Urine Protein 2+ H Urine Glucose (UA) Normal Urine Ketones Negative Urine Blood 1+ H Urine Nitrate Negative Urine Bilirubin Negative Urine Urobilinogen Normal Ur Leukocyte Esterase 2+ H Urine WBC (Auto) 54 H Urine RBC (Auto) 14 H Ur Squamous Epith Cells < 1 Urine Bacteria Occ H 04/13/18 04/13/18 04/13/18 08:15 09:24 10:03 WBC RBC Hgb Hct MCV MCH MCHC RDW Plt Count MPV Neut % (Auto) Lymph % (Auto) [place] % (Auto) Eos % (Auto) Baso % (Auto) Neut # (Auto) Lymph # (Auto) [place] # (Auto) Eos # (Auto) Baso # (Auto) Retic Count PT 13.3 H INR 1.2 Sodium 133 Potassium 5.3 H Chloride 103 Carbon Dioxide 18 L Anion Gap 17 BUN 38 H Creatinine 2.3 H Est GFR ( Amer) 26 Est GFR (Non-Af Amer) 22 POC Glucose (mg/dL) 117 H Random Glucose 133 H Calcium 9.2 Iron TIBC % Saturation Ferritin 162.0 Total Bilirubin AST ALT Alkaline Phosphatase Total Protein Albumin Globulin Albumin/Globulin Ratio Lipase Urine Color Urine Clarity Urine pH Ur Specific [place] Urine Protein Urine Glucose (UA) Urine Ketones Urine Blood Urine Nitrate Urine Bilirubin Urine Urobilinogen Ur Leukocyte Esterase Urine WBC (Auto) Urine RBC (Auto) Ur Squamous Epith Cells Urine Bacteria 04/13/18 04/13/18 04/13/18 10:03 10:03 10:03 WBC RBC Hgb Hct MCV MCH MCHC RDW Plt Count MPV Neut % (Auto) Lymph % (Auto) [place] % (Auto) Eos % (Auto) Baso % (Auto) Neut # (Auto) Lymph # (Auto) [place] # (Auto) Eos # (Auto) Baso # (Auto) Retic Count 2.4 H D PT INR Sodium Potassium Chloride Carbon Dioxide Anion Gap BUN Creatinine Est GFR ( Amer) Est GFR (Non-Af Amer) POC Glucose (mg/dL) Random Glucose Calcium Iron 40 TIBC 319 % Saturation 13 L 13 L Ferritin Total Bilirubin AST ALT Alkaline Phosphatase Total Protein Albumin Globulin Albumin/Globulin Ratio Lipase Urine Color Urine Clarity Urine pH Ur Specific [place] Urine Protein Urine Glucose (UA) Urine Ketones Urine Blood Urine Nitrate Urine Bilirubin Urine Urobilinogen Ur Leukocyte Esterase Urine WBC (Auto) Urine RBC (Auto) Ur Squamous Epith Cells Urine Bacteria Assessment & Plan (1) TRISTON (acute kidney injury) Status: Acute (2) Gastroparesis Status: Acute (3) Proteinuria Status: Acute (4) Hyperlipidemia Status: Acute (5) Hyperlipidemia Status: Chronic - Assessment and Plan (Free Text) Plan: Stop ARB- likely exacerbated TRISTON IV fluids protein excretion rate renal US
--- NOTE | 2018-04-13 12:08 | CT ---
Date of service: 04/13/2018 CT chest without IV contrast Indication: pleural effusion Technique: Contiguous axial images were obtained through the chest without intravenous contrast enhancement. Sagittal and coronal reconstructions were generated and reviewed. This CT exam was performed using 1 or more of the following dose reduction techniques: Automated exposure control, adjustment of the MAA and/or kV according to patient size, and/or use of iterative reconstruction technique. Radiation dose (DLP): 447.81 MGy-cm. Comparison: Chest x-ray performed 11/19/17 Findings: Visualized portions of the inferior thyroid gland appear unremarkable. The unenhanced mediastinal and hilar vascular structures appear grossly unremarkable. Subcentimeter mediastinal lymph nodes, nonspecific. Cardiomegaly. Small pericardial effusion. Atherosclerotic calcifications. Moderate bilateral pleural effusions and associated consolidations. Mild pulmonary venous congestion. Limited visualization of the noncontrast upper abdomen: 13 mm left retro peritoneal lymph node. Degenerative changes of the spine. Impression: Cardiomegaly. Small pericardial effusion. Mild pulmonary venous congestion. Moderate bilateral pleural effusions and associated consolidations. Additional findings as above. Preliminary impression was provided by [employer].
[2018-04-13] MEDS: Divalproex 500 mg DR Tab PO SCH (12:24)
[2018-04-13 12:34] VITALS: RESP 20
[2018-04-13] MEDS: Sodium Chloride 0.9% 1,000 ML IV SCH (12:47)
--- NOTE | 2018-04-13 13:37 | CP.PCM.CON ---
<Roosevelt Le - Last Filed: 04/13/18 13:30> History of Present Illness - History of Present Illness History of Present Illness: GI Fellow PGY4, consult note Florencia Wiggins is a 58F presenting with abdominal pain, vomiting, diarrhea. She has history of DM, HTN, schizophrenia, kidney stones. The abdominal pain and vomiting start 3 days ago. The abdominal pain was epigastric, non-radiating, moderate in severity, and burning. There were no exacerbating or alleviating factors despite pepto-bismol. On admission, her labs were unremarkable except likely TRISTON. CT showed pleural effusion, possible b/l pyelonephritis otherwise no acute findings. Today, she is feeling much better. No Nausea. She is hungry and has no abdominal pain. PMHx - as above PSHx - none FmHx - Denies GI related cancers. SocHx - Denies smoking or alcohol use. 12pt ROS completed and negative except for above. Past Patient History - Infectious Disease Hx of Infectious Diseases: None - Past Medical History & Family History Past Medical History?: Yes - Past Social History Smoking Status: Never Smoked - CARDIAC Hx Hypercholesterolemia: Yes Hx Hypertension: Yes - PULMONARY Hx Respiratory Disorders: No - NEUROLOGICAL Hx Neurological Disorder: Yes Other/Comment: schizophrenia - HEENT Hx HEENT Problems: No - RENAL Hx Chronic Kidney Disease: No - ENDOCRINE/METABOLIC Hx Diabetes Mellitus Type 2: Yes - HEMATOLOGICAL/ONCOLOGICAL Hx Blood Disorders: No - INTEGUMENTARY Hx Dermatological Problems: No - MUSCULOSKELETAL/RHEUMATOLOGICAL Hx Falls: No - GASTROINTESTINAL Hx Diverticulitis: No - GENITOURINARY/GYNECOLOGICAL Hx Genitourinary Disorders: Yes Hx Urinary Tract Infection: Yes - PSYCHIATRIC Hx Depression: Yes Hx Schizophrenia: Yes Hx Substance Use: No - SURGICAL HISTORY Hx Surgeries: Yes Hx Tubal Ligation: Yes Other/Comment: ;fibroids removed - ANESTHESIA Hx Anesthesia: Yes Hx Anesthesia Reactions: No Meds Allergies/Adverse Reactions: Allergies Allergy/AdvReac Type Severity Reaction Status Date / Time No Known Allergies Allergy Verified 10/07/17 18:29 - Medications Medications: Current Medications Amlodipine Besylate (Norvasc) 5 mg PO DAILY [facility] Last Admin: 04/13/18 12:24 Dose: 5 mg Dextrose (Dextrose 50% Inj) 0 ml IVP .STAT PRN; Protocol PRN Reason: Hypoglycemia Protocol Dextrose (Glutose 15) 0 gm PO .ONCE PRN; Protocol PRN Reason: Hypoglycemia Protocol Divalproex Sodium (Depakote Dr) 500 mg PO DAILY [facility] Last Admin: 04/13/18 12:24 Dose: 500 mg Glucagon (Glucagen Diagnostic Kit) 0 mg IM .STAT PRN; Protocol PRN Reason: Hypoglycemia Protocol Dextrose (Dextrose 5% In Water 1000 Ml) 1,000 mls @ 0 mls/hr IV .Q0M PRN; Protocol PRN Reason: Hypoglycemia Protocol Sodium Chloride (Sodium Chloride 0.9%) 1,000 mls @ 100 mls/hr IV .Q10H [facility] Last Admin: 04/13/18 12:47 Dose: 100 mls/hr Insulin Human Regular (Novolin R) 15 unit SC ACB [facility] Ondansetron HCl (Zofran Inj) 4 mg IVP Q6 PRN PRN Reason: Nausea/Vomiting Pantoprazole Sodium (Protonix Inj) 40 mg IVP Q24H [facility] Last Admin: 04/13/18 12:25 Dose: 40 mg Risperidone (Risperdal Tab) 1 mg PO HS [facility] Rosuvastatin Calcium (Crestor) 2.5 mg PO HS [facility] Sertraline HCl (Zoloft) 100 mg PO HS [facility] Tamsulosin HCl (Flomax) 0.4 mg PO DAILY [facility] Last Admin: 04/13/18 12:24 Dose: 0.4 mg Physical Exam - Constitutional Appears: Well, Non-toxic - Head Exam Head Exam: ATRAUMATIC, NORMAL INSPECTION - Eye Exam Eye Exam: EOMI, Normal appearance - ENT Exam ENT Exam: Mucous Membranes Moist, Normal Exam - Respiratory Exam Respiratory Exam: Clear to Auscultation Bilateral, NORMAL BREATHING PATTERN - Cardiovascular Exam Cardiovascular Exam: REGULAR RHYTHM, +S1, +S2 - GI/Abdominal Exam GI & Abdominal Exam: Normal Bowel Sounds, Soft. absent: Organomegaly, Tenderness - Extremities Exam Extremities exam: Positive for: normal inspection. Negative for: tenderness - Neurological Exam Neurological exam: Alert, CN II-XII Intact, Oriented x3 - Psychiatric Exam Psychiatric exam: Normal Affect, Normal Mood - Skin Skin Exam: Normal Color, Warm Results - Vital Signs Recent Vital Signs: Last Vital Signs Temp 98.9 F 04/13/18 08:00 Pulse 83 04/13/18 08:00 Resp 20 04/13/18 08:00 BP 171/75 H 04/13/18 08:00 Pulse Ox 98 04/13/18 08:00 - Labs Result Diagrams: 04/13/18 04:48 04/13/18 10:03 Labs: Laboratory Results - last 24 hr 04/13/18 04/13/18 04/13/18 04:11 04:48 04:48 WBC 6.4 RBC 3.53 L Hgb 10.2 L Hct 30.6 L MCV 86.6 MCH 28.8 MCHC 33.2 RDW 15.7 H Plt Count 254 MPV 7.4 Neut % (Auto) 71.9 Lymph % (Auto) 17.6 L Dickens % (Auto) 6.3 Eos % (Auto) 3.7 Baso % (Auto) 0.5 Neut # (Auto) 4.6 Lymph # (Auto) 1.1 Dickens # (Auto) 0.4 Eos # (Auto) 0.2 Baso # (Auto) 0.0 Retic Count PT INR Sodium 134 Potassium 5.3 H Chloride 103 Carbon Dioxide 20 L Anion Gap 16 BUN 37 H Creatinine 2.2 H Est GFR ( Amer) 28 Est GFR (Non-Af Amer) 23 POC Glucose (mg/dL) Random Glucose 135 H D Hemoglobin A1c Calcium 9.0 Iron TIBC % Saturation Ferritin Total Bilirubin 0.6 AST 26 ALT 21 Alkaline Phosphatase 122 Total Protein 9.5 H Albumin 4.5 Globulin 4.9 H Albumin/Globulin Ratio 0.9 L Lipase 152 Procalcitonin Urine Color Straw Urine Clarity Clear Urine pH 7.0 Ur Specific [place] 1.008 Urine Protein 2+ H Urine Glucose (UA) Normal Urine Ketones Negative Urine Blood 1+ H Urine Nitrate Negative Urine Bilirubin Negative Urine Urobilinogen Normal Ur Leukocyte Esterase 2+ H Urine WBC (Auto) 54 H Urine RBC (Auto) 14 H Ur Squamous Epith Cells < 1 Urine Bacteria Occ H Stool Occult Blood Stool Occult Blood #2 04/13/18 04/13/18 04/13/18 08:15 09:24 09:24 WBC RBC Hgb Hct MCV MCH MCHC RDW Plt Count MPV Neut % (Auto) Lymph % (Auto) Dickens % (Auto) Eos % (Auto) Baso % (Auto) Neut # (Auto) Lymph # (Auto) Dickens # (Auto) Eos # (Auto) Baso # (Auto) Retic Count PT 13.3 H INR 1.2 Sodium Potassium Chloride Carbon Dioxide Anion Gap BUN Creatinine Est GFR ( Amer) Est GFR (Non-Af Amer) POC Glucose (mg/dL) 117 H Random Glucose Hemoglobin A1c Calcium Iron TIBC % Saturation Ferritin Total Bilirubin AST ALT Alkaline Phosphatase Total Protein Albumin Globulin Albumin/Globulin Ratio Lipase Procalcitonin < 0.05 L Urine Color Urine Clarity Urine pH Ur Specific [place] Urine Protein Urine Glucose (UA) Urine Ketones Urine Blood Urine Nitrate Urine Bilirubin Urine Urobilinogen Ur Leukocyte Esterase Urine WBC (Auto) Urine RBC (Auto) Ur Squamous Epith Cells Urine Bacteria Stool Occult Blood Stool Occult Blood #2 04/13/18 04/13/18 04/13/18 10:03 10:03 10:03 WBC RBC Hgb Hct MCV MCH MCHC RDW Plt Count MPV Neut % (Auto) Lymph % (Auto) Dickens % (Auto) Eos % (Auto) Baso % (Auto) Neut # (Auto) Lymph # (Auto) Dickens # (Auto) Eos # (Auto) Baso # (Auto) Retic Count PT INR Sodium 133 Potassium 5.3 H Chloride 103 Carbon Dioxide 18 L Anion Gap 17 BUN 38 H Creatinine 2.3 H Est GFR ( Amer) 26 Est GFR (Non-Af Amer) 22 POC Glucose (mg/dL) Random Glucose 133 H Hemoglobin A1c 5.2 Calcium 9.2 Iron 40 TIBC 319 % Saturation 13 L Ferritin 162.0 Total Bilirubin AST ALT Alkaline Phosphatase Total Protein Albumin Globulin Albumin/Globulin Ratio Lipase Procalcitonin Urine Color Urine Clarity Urine pH Ur Specific [place] Urine Protein Urine Glucose (UA) Urine Ketones Urine Blood Urine Nitrate Urine Bilirubin Urine Urobilinogen Ur Leukocyte Esterase Urine WBC (Auto) Urine RBC (Auto) Ur Squamous Epith Cells Urine Bacteria Stool Occult Blood Stool Occult Blood #2 04/13/18 04/13/18 04/13/18 10:03 10:03 12:12 WBC RBC Hgb Hct MCV MCH MCHC RDW Plt Count MPV Neut % (Auto) Lymph % (Auto) Dickens % (Auto) Eos % (Auto) Baso % (Auto) Neut # (Auto) Lymph # (Auto) Dickens # (Auto) Eos # (Auto) Baso # (Auto) Retic Count 2.4 H D PT INR Sodium Potassium Chloride Carbon Dioxide Anion Gap BUN Creatinine Est GFR ( Amer) Est GFR (Non-Af Amer) POC Glucose (mg/dL) Random Glucose Hemoglobin A1c Calcium Iron TIBC % Saturation 13 L Ferritin Total Bilirubin AST ALT Alkaline Phosphatase Total Protein Albumin Globulin Albumin/Globulin Ratio Lipase Procalcitonin Urine Color Urine Clarity Urine pH Ur Specific [place] Urine Protein Urine Glucose (UA) Urine Ketones Urine Blood Urine Nitrate Urine Bilirubin Urine Urobilinogen Ur Leukocyte Esterase Urine WBC (Auto) Urine RBC (Auto) Ur Squamous Epith Cells Urine Bacteria Stool Occult Blood Negative Stool Occult Blood #2 Negative Assessment & Plan - Assessment and Plan (Free Text) Assessment: #Abdominal pain #Vomiting #DM #TRISTON #Schizophrenia #Chronic anemia PLAN: -CT reviewed, ?pyelonephritis, pleaural effusions, otherwise no acute findings. -Symptoms are improving with zofran, iv fluids, PPI -Follow up nephrology recommendations -Advance to full liquid diet, monitor. Advance as tolerated. -No endoscopic procedures planned. -Routine screening colonoscopy as an outpatient advised. Discussed with Dr. Bryant, see attestation. - Date & Time Date: 04/13/18 Time: 13:39 <Rhett Bryant Y - Last Filed: 04/13/18 14:25> Meds - Medications Medications: Current Medications Amlodipine Besylate (Norvasc) 5 mg PO DAILY [facility] Last Admin: 04/13/18 12:24 Dose: 5 mg Dextrose (Dextrose 50% Inj) 0 ml IVP .STAT PRN; Protocol PRN Reason: Hypoglycemia Protocol Dextrose (Glutose 15) 0 gm PO .ONCE PRN; Protocol PRN Reason: Hypoglycemia Protocol Divalproex Sodium (Depakote Dr) 500 mg PO DAILY [facility] Last Admin: 04/13/18 12:24 Dose: 500 mg Glucagon (Glucagen Diagnostic Kit) 0 mg IM .STAT PRN; Protocol PRN Reason: Hypoglycemia Protocol Dextrose (Dextrose 5% In Water 1000 Ml) 1,000 mls @ 0 mls/hr IV .Q0M PRN; Protocol PRN Reason: Hypoglycemia Protocol Sodium Chloride (Sodium Chloride 0.9%) 1,000 mls @ 100 mls/hr IV .Q10H [facility] Last Admin: 04/13/18 12:47 Dose: 100 mls/hr Insulin Human Regular (Novolin R) 15 unit SC ACB [facility] Ondansetron HCl (Zofran Inj) 4 mg IVP Q6 PRN PRN Reason: Nausea/Vomiting Pantoprazole Sodium (Protonix Inj) 40 mg IVP Q24H [facility] Last Admin: 04/13/18 12:25 Dose: 40 mg Risperidone (Risperdal Tab) 1 mg PO HS [facility] Rosuvastatin Calcium (Crestor) 2.5 mg PO HS [facility] Sertraline HCl (Zoloft) 100 mg PO HS [facility] Tamsulosin HCl (Flomax) 0.4 mg PO DAILY [facility] Last Admin: 04/13/18 12:24 Dose: 0.4 mg Results - Vital Signs Recent Vital Signs: Last Vital Signs Temp 98.9 F 04/13/18 08:00 Pulse 83 04/13/18 08:00 Resp 20 04/13/18 08:00 BP 171/75 H 04/13/18 08:00 Pulse Ox 98 04/13/18 08:00 - Labs Result Diagrams: 04/13/18 04:48 04/13/18 10:03 Labs: Laboratory Results - last 24 hr 04/13/18 04/13/18 04/13/18 04:11 04:48 04:48 WBC 6.4 RBC 3.53 L Hgb 10.2 L Hct 30.6 L MCV 86.6 MCH 28.8 MCHC 33.2 RDW 15.7 H Plt Count 254 MPV 7.4 Neut % (Auto) 71.9 Lymph % (Auto) 17.6 L Dickens % (Auto) 6.3 Eos % (Auto) 3.7 Baso % (Auto) 0.5 Neut # (Auto) 4.6 Lymph # (Auto) 1.1 Dickens # (Auto) 0.4 Eos # (Auto) 0.2 Baso # (Auto) 0.0 Retic Count PT INR Sodium 134 Potassium 5.3 H Chloride 103 Carbon Dioxide 20 L Anion Gap 16 BUN 37 H Creatinine 2.2 H Est GFR ( Amer) 28 Est GFR (Non-Af Amer) 23 POC Glucose (mg/dL) Random Glucose 135 H D Hemoglobin A1c Calcium 9.0 Iron TIBC % Saturation Ferritin Total Bilirubin 0.6 AST 26 ALT 21 Alkaline Phosphatase 122 Total Protein 9.5 H Albumin 4.5 Globulin 4.9 H Albumin/Globulin Ratio 0.9 L Lipase 152 Procalcitonin Urine Color Straw Urine Clarity Clear Urine pH 7.0 Ur Specific [place] 1.008 Urine Protein 2+ H Urine Glucose (UA) Normal Urine Ketones Negative Urine Blood 1+ H Urine Nitrate Negative Urine Bilirubin Negative Urine Urobilinogen Normal Ur Leukocyte Esterase 2+ H Urine WBC (Auto) 54 H Urine RBC (Auto) 14 H Ur Squamous Epith Cells < 1 Urine Bacteria Occ H Stool Occult Blood Stool Occult Blood #2 04/13/18 04/13/18 04/13/18 08:15 09:24 09:24 WBC RBC Hgb Hct MCV MCH MCHC RDW Plt Count MPV Neut % (Auto) Lymph % (Auto) Dickens % (Auto) Eos % (Auto) Baso % (Auto) Neut # (Auto) Lymph # (Auto) Dickens # (Auto) Eos # (Auto) Baso # (Auto) Retic Count PT 13.3 H INR 1.2 Sodium Potassium Chloride Carbon Dioxide Anion Gap BUN Creatinine Est GFR ( Amer) Est GFR (Non-Af Amer) POC Glucose (mg/dL) 117 H Random Glucose Hemoglobin A1c Calcium Iron TIBC % Saturation Ferritin Total Bilirubin AST ALT Alkaline Phosphatase Total Protein Albumin Globulin Albumin/Globulin Ratio Lipase Procalcitonin < 0.05 L Urine Color Urine Clarity Urine pH Ur Specific [place] Urine Protein Urine Glucose (UA) Urine Ketones Urine Blood Urine Nitrate Urine Bilirubin Urine Urobilinogen Ur Leukocyte Esterase Urine WBC (Auto) Urine RBC (Auto) Ur Squamous Epith Cells Urine Bacteria Stool Occult Blood Stool Occult Blood #2 04/13/18 04/13/18 04/13/18 10:03 10:03 10:03 WBC RBC Hgb Hct MCV MCH MCHC RDW Plt Count MPV Neut % (Auto) Lymph % (Auto) Dickens % (Auto) Eos % (Auto) Baso % (Auto) Neut # (Auto) Lymph # (Auto) Dickens # (Auto) Eos # (Auto) Baso # (Auto) Retic Count PT INR Sodium 133 Potassium 5.3 H Chloride 103 Carbon Dioxide 18 L Anion Gap 17 BUN 38 H Creatinine 2.3 H Est GFR ( Amer) 26 Est GFR (Non-Af Amer) 22 POC Glucose (mg/dL) Random Glucose 133 H Hemoglobin A1c 5.2 Calcium 9.2 Iron 40 TIBC 319 % Saturation 13 L Ferritin 162.0 Total Bilirubin AST ALT Alkaline Phosphatase Total Protein Albumin Globulin Albumin/Globulin Ratio Lipase Procalcitonin Urine Color Urine Clarity Urine pH Ur Specific [place] Urine Protein Urine Glucose (UA) Urine Ketones Urine Blood Urine Nitrate Urine Bilirubin Urine Urobilinogen Ur Leukocyte Esterase Urine WBC (Auto) Urine RBC (Auto) Ur Squamous Epith Cells Urine Bacteria Stool Occult Blood Stool Occult Blood #2 04/13/18 04/13/18 04/13/18 10:03 10:03 12:12 WBC RBC Hgb Hct MCV MCH MCHC RDW Plt Count MPV Neut % (Auto) Lymph % (Auto) Dickens % (Auto) Eos % (Auto) Baso % (Auto) Neut # (Auto) Lymph # (Auto) Dickens # (Auto) Eos # (Auto) Baso # (Auto) Retic Count 2.4 H D PT INR Sodium Potassium Chloride Carbon Dioxide Anion Gap BUN Creatinine Est GFR ( Amer) Est GFR (Non-Af Amer) POC Glucose (mg/dL) Random Glucose Hemoglobin A1c Calcium Iron TIBC % Saturation 13 L Ferritin Total Bilirubin AST ALT Alkaline Phosphatase Total Protein Albumin Globulin Albumin/Globulin Ratio Lipase Procalcitonin Urine Color Urine Clarity Urine pH Ur Specific [place] Urine Protein Urine Glucose (UA) Urine Ketones Urine Blood Urine Nitrate Urine Bilirubin Urine Urobilinogen Ur Leukocyte Esterase Urine WBC (Auto) Urine RBC (Auto) Ur Squamous Epith Cells Urine Bacteria Stool Occult Blood Negative Stool Occult Blood #2 Negative Attending/Attestation - Attestation I have personally seen and examined this patient.: Yes I have fully participated in the care of the patient.: Yes I have reviewed all pertinent clinical information: Yes Notes (Text): 04/13/18 14:20 I have seen and examined patient with GI fellow. Agree with above documentation with the following additions. In brief, this is a 58 year old female with history of DM, HTN, schizophrenia who presents to hospital with complaint of abdominal pain, nausea, vomiting. She describes symptom onset 3 days ago with epigastric burning sensation and episodes of non-bloody emesis yesterday. She took pepto bismol without adequate relief. She denies recent travel, sick contacts, antibiotic use, or unusual food consumption. Currently she is being treated for pyelonephritis and acute renal insufficiency. During time of examination her abdominal pain and vomiting had resolved, she is asking for her diet to be advanced. DM / HTN Schizophrenia Abdominal pain, vomiting - resolved Acute renal insufficiency, ?pyelonephritis - Advance diet slowly as tolerated - Continue with IVF hydration, supportive care - Anti-emetic therapy PRN - Follow up renal recommendations - Continue with PPI therapy - No planned GI intervention at this time, will sign off case. Please reconsult as necessary, thank you.
[2018-04-13] MEDS ORDERED: Iohexol 240 (50 ml) PO ONE (14:00)
--- NOTE | 2018-04-13 14:22 | CT ---
Date of service: 04/13/2018 PROCEDURE: CT Abdomen and Pelvis without intravenous contrast HISTORY: upper abd pain COMPARISON: Abdomen pelvis CT without contrast 10/07/2017. TECHNIQUE: Helical CT of the abdomen and pelvis was performed without oral or intravenous contrast as per referring physician request. Coronal and sagittal reformats were generated. Contrast dose: None Radiation dose: Total exam DLP = 685.41 mGy-cm. This CT exam was performed using one or more of the following dose reduction techniques: Automated exposure control, adjustment of the mA and/or kV according to patient size, and/or use of iterative reconstruction technique. FINDINGS: LOWER THORAX: Images through the lung bases reveal interseptal thickening throughout the below bilateral lung bases as well as mild pleural effusions bilaterally as well. Further, engorgement of the pulmonary veins are identified well larger than they were accompanying airways compatible with pulmonary edema. The cardiac size is upper limits normal. Mild pericardial effusion identified. Limited compression atelectasis is seen at the left greater than right lower lobes. LIVER: Unremarkable. No gross lesion or ductal dilatation. GALLBLADDER AND BILE DUCTS: Unremarkable. PANCREAS: Unremarkable. No gross lesion or ductal dilatation. SPLEEN: Unremarkable. ADRENALS: Unremarkable. No mass. KIDNEYS AND URETERS: Perinephric margins at the left kidney are poorly defined with trace para renal reaction once again. The left ureter does not appear dilated but there is mild left hydronephrosis which is either recurrent or chronic. No right hydronephrosis. No radiodense urolithiasis bilaterally. Small calcifications seen lateral to the mid to distal left ureter overlying the psoas muscle and there is a phlebolith posterior to the urinary bladder well lateral to the left ureterovesical junction. Consider possible distal left ureteral limited stricture or lucent calculus potentially. Consider follow-up ultrasonography for added characterization or contrast CT. VASCULATURE: Nonaneurysmal abdominal aortic calcific atherosclerotic changes are identified. BOWEL: Bowel is not appear obstructed. There is moderate fecal loading in the proximal to mid large-bowel and minimal residual throughout the remainder. Multiple segments of the left hemicolon are collapsed and poorly evaluated as result. Limited mural thickening is difficult to exclude at the splenic flexure as well as distal transverse and proximal descending colon. No pericolic reaction is appreciated to define colitis further but clinical correlation is nevertheless recommended. Lack oral contrast limits evaluation. Rare diverticular seen at the left hemicolon including the sigmoid segment. APPENDIX: No CT pattern of appendicitis. PERITONEUM: Unremarkable. No free fluid. No free air. LYMPH NODES: Unremarkable. No enlarged lymph nodes. BLADDER: Unremarkable. REPRODUCTIVE: Lobular changes related to the uterus likely reflect underlying uterine fibroids once again. BONES: No acute fracture. OTHER FINDINGS: Prior subcutaneous gas at the left infraumbilical subcutaneous fat has resolved. IMPRESSION: 1. Recurrent or chronic limited left hydronephrosis without hydroureter. Consider potential proximal left ureter stricture or lucent calculus. Consider follow-up ultrasound or contrast abdomen and pelvis CT. 2. Questionable mild left sided colitis without abscess, local pericolic reaction or free air. This is a subtle finding and could be a function of collapsed colon. Clinically correlate further. 3. Incidental note is made of pulmonary edema. Please see discussion above at beginning of report. Discrepant with [facility] preliminary discussion 04/13/2018 6:18 a.m. including etiology of left eva nephric reaction, the presence of right perinephric reaction in the lack of mention of pulmonary edema.
--- NOTE | 2018-04-13 14:49 | CARD ---
APPROVED REPORT Date of service: 04/13/2018 EKG Measurement Heart [id number] <Conclusion> Normal sinus rhythm Normal ECG
[2018-04-13 14:54] LABS: FOLATE 15.2 ng/mL
--- NOTE | 2018-04-13 16:55 | US ---
Date of service: 04/13/2018 PROCEDURE: Ultrasound of the Kidneys HISTORY: acute on renal insuffiency COMPARISON: None available. TECHNIQUE: Sonogram of the kidneys. FINDINGS: RIGHT KIDNEY: Measures: 9.9 x 4.2 x 4.5 cm. Normal in size, contour and with generalized increased echogenicity perceived.. No stone, solid mass lesion or hydronephrosis visualized. LEFT KIDNEY: Measures: 11.8 x 4.7 x 5.0 cm. Normal in size, contour and with generalized increased echogenicity perceived. No stone, solid mass lesion or hydronephrosis visualized. OTHER FINDINGS: Bladder prevoid urine volume 173 mL. No postvoid residual seen. Right and left ureteral jets noted. Bladder wall thickening is bleed present at approximately 4 to 5 mm this appears diffuse. Within the lower uterine segment a linear like calcification is also seen. This may be calcification within uterine fibroid. IMPRESSION: Bilateral diffuse renal increased cortical echogenicity medical renal disease is a consideration. No hydronephrosis or gross renal mass seen. Diffuse mild bladder wall thickening suggested. No intraluminal masses. A nonspecific inflammatory or hyperplastic process is a consideration. Mild diffuse bladder infection is not excluded. Correlate clinically. No postvoid residual urine volume. Bilateral ureteral jets noted as above. Incidentally noted is heterogeneity in the lower uterine segment calcified uterine fibroids probable.
--- NOTE | 2018-04-13 17:19 | CT ---
PROCEDURE: CT Abdomen and Pelvis without IV contrast. HISTORY: epigastric tenderness, diarrhea, r/o bowel pathology COMPARISON: CT abdomen and pelvis without oral or IV contrast performed 04/13/18 TECHNIQUE: Contiguous axial images of the abdomen and pelvis. Oral contrast was administered. No IV contrast given. Coronal and Sagittal reformats generated and reviewed. Radiation dose: Total exam DLP = 403.66 mGy-cm. This CT exam was performed using one or more of the following dose reduction techniques: Automated exposure control, adjustment of the mA and/or kV according to patient size, and/or use of iterative reconstruction technique. FINDINGS: There is limited evaluation of the solid organs without the administration of IV contrast. LOWER THORAX: Moderate bilateral pleural effusions and bibasilar atelectasis/infiltrates. No visible pneumothorax. Trace pericardial effusion. Partially imaged cardiomegaly. LIVER: Unremarkable unenhanced appearance. GALLBLADDER AND BILE DUCTS: Unremarkable unenhanced appearance. PANCREAS: Unremarkable unenhanced appearance. SPLEEN: Unremarkable unenhanced appearance. ADRENALS: Unremarkable unenhanced appearance. KIDNEYS AND URETERS: Mild fullness of the left renal collecting system and proximal left ureter. No obstructing calculus identified. No right-sided hydronephrosis. BLADDER: Urinary bladder wall thickening; recommend correlation with urinalysis. REPRODUCTIVE: Lobulated uterus including probable fundal fibroid. APPENDIX: The appendix appears within normal limits of caliber. No secondary signs of acute appendicitis. BOWEL: The stomach is nondistended. The bowel loops appear within normal limits of caliber without evidence of intestinal obstruction. Moderate constipation. Diverticulosis without CT evidence of acute diverticulitis. PERITONEUM: No significant free fluid. No definite free air. LYMPH NODES: No bulky lymphadenopathy identified. VASCULATURE: No aortic aneurysm. Atherosclerotic calcifications of the aorta. BONES: Degenerative changes. OTHER FINDINGS: Tiny fat containing umbilical hernia. IMPRESSION: Moderate bilateral pleural effusions and bibasilar atelectasis/infiltrates. No visible pneumothorax. Trace pericardial effusion. Partially imaged cardiomegaly. Mild fullness of the left renal collecting system and proximal left ureter. No obstructing calculus identified. No right-sided hydronephrosis. Diverticulosis without CT evidence of acute diverticulitis. Evidence of fibroid uterus. Mildly thick-walled urinary bladder. Recommend correlation with urinalysis. Additional incidental findings as above.
[2018-04-13 18:06] LABS: CALCIUM 8.8 mg/dl (8.6-10.4)
[2018-04-13] MEDS: Rosuvastatin Calcium 2.5 mg Tab PO SCH (22:01)
--- NOTE | 2018-04-13 22:24 | CARD ---
APPROVED REPORT Date of service: 04/13/2018 EXAM: Two-dimensional and M-mode echocardiogram with Doppler and color Doppler. Other Information Quality : GoodRhythm : INDICATION Pleural Effusion 2D DIMENSIONS IVSd1.1 (0.7-1.1cm)LVDd4.7 (3.9-5.9cm) LVOT Diameter1.9 (1.8-2.4cm)PWd1.3 (0.7-1.1cm) LA Rncuuk24 (18-58mL)LVDs3.3 (2.5-4.0cm) FS (%) 28.5 %LVEF (%)55.0 (>50%) LVEF (Diggs's)48.08 %IVC0.00 cm M-Mode DIMENSIONS RVDd1.27 (2.1-3.2cm)Left Atrium (MM)4.15 (2.5-4.0cm) IVSd1.20 (0.7-1.1cm)Aortic Root2.51 (2.2-3.7cm) LVDd5.14 (4.0-5.6cm)Aortic Cusp Exc.1.66 (1.5-2.0cm) PWd1.17 (0.7-1.1cm)FS (%) 26 % LVDs3.81 (2.0-3.8cm)LVEF (%)51 (>50%) Aortic Valve AoV Peak Gzqfnoxa181.8cm/Estela Peak GR.14mmHgAI P 1/2 [id number] Mitral Valve MV E Niuanzsk118.8cm/sMV A Fkcqdaef091.9cm/sE/A ratio1.1 LKMZ726.89 cm/s TDI Lateral E' Peak V8.16cm/sMedial E' Peak V5.13cm/sE/Lateral E'17.9 E/Medial E'28.4 Tricuspid Valve TR Peak Inuphovy908gc/sTR Peak Gr.81zsReISKZ84tmNb LEFT VENTRICLE The left ventricle is normal size. There is mild concentric left ventricular hypertrophy. Left ventricle systolic function is normal. The Ejection Fraction is 55-60%. There is normal LV segmental wall motion. Transmitral Doppler flow pattern is Grade I-abnormal relaxation pattern. There is no ventricular septal defect visualized. RIGHT VENTRICLE The right ventricle is normal size. The right ventricular systolic function is normal. ATRIA The left atrium is mildly dilated. The right atrium size is normal. AORTIC VALVE The aortic valve is moderately sclerotic. The aortic valve is tri-cuspid. There is mild to moderate aortic regurgitation. There is no aortic valvular stenosis. MITRAL VALVE Mitral annular calcification is mild. There is no evidence of mitral valve prolapse. Mitral regurgitation is moderate to severe.MR radius 0.8 cm TRICUSPID VALVE The tricuspid valve is normal in structure. There is mild to moderate tricuspid regurgitation. Right ventricular systolic pressure is estimated at 30-40 mmHg. There is mild pulmonary hypertension. PULMONIC VALVE The pulmonic valve is not well visualized. There is trace pulmonic valvular regurgitation. GREAT VESSELS The aortic root is normal in size. The ascending aorta is normal in size. The IVC is normal in size and collapses >50% with inspiration. PERICARDIAL EFFUSION There is a small circumferential pericardial effusion. There is moderate left pleural effusion. <Conclusion> There is mild concentric left ventricular hypertrophy. Left ventricle systolic function is normal. The Ejection Fraction is 55-60%. Transmitral Doppler flow pattern is Grade I-abnormal relaxation pattern. There is mild to moderate aortic regurgitation. Mitral regurgitation is moderate to severe.MR radius 0.8 cm There is mild pulmonary hypertension. There is a small circumferential pericardial effusion. There is moderate left pleural effusion.
[2018-04-14] MEDS: Sodium Chloride 0.9% 1,000 ML IV SCH ×3 (01:12→13:36)
[2018-04-14 07:17] LABS: BASO % 0.8 % (0.0-2.0); EOS # 0.2 K/uL (0.0-0.7); EOS % 3.9 % (0.0-4.0); LYMPH # 0.7 K/uL (1.0-4.3); MEAN CORPUSCULAR HGB CONC 34.3 g/dL (33.0-37.0); MONO # 0.3 K/uL (0.0-0.8)
[2018-04-14 07:22] LABS: LYMPH % 16.8 % (20.0-40.0); MEAN CELL VOLUME 87.2 fL (81.0-99.0); MEAN CORPUSCULAR HEMOGLOBIN 29.9 pg (27.0-31.0); MEAN PLATELET VOLUME 7.4 fL (7.2-11.7); MONO % 6.9 % (0.0-10.0); NEUT # 3.1 K/uL (1.8-7.0); NEUT % 71.6 % (50.0-75.0); RBC 2.59 Mil/uL (3.80-5.20); RED CELL DISTRIBUTION WIDTH 14.8 % (11.5-14.5); WHITE BLOOD COUNT 4.3 K/uL (4.8-10.8)
[2018-04-14 07:31] LABS: HEMOGLOBIN 7.8 g/dL (11.0-16.0)
[2018-04-14 07:47] LABS: ALB/GLOB RATIO 0.9 (1.0-2.1); ALBUMIN 3.4 g/dL (3.5-5.0); CALCIUM 8.2 mg/dl (8.6-10.4)
[2018-04-14] MEDS: (Novolin R) Insulin Human Regular 100 units/ml vial SC SCH (09:05)
[2018-04-14] MEDS: Divalproex 500 mg DR Tab PO SCH (10:16)
[2018-04-14 12:01] LABS: BASO % 0.6 % (0.0-2.0); EOS # 0.1 K/uL (0.0-0.7); EOS % 3.2 % (0.0-4.0); HEMOGLOBIN 8.5 g/dL (11.0-16.0); LYMPH % 21.3 % (20.0-40.0); MEAN CELL VOLUME 86.8 fL (81.0-99.0); MEAN CORPUSCULAR HGB CONC 34.6 g/dL (33.0-37.0); MEAN PLATELET VOLUME 7.4 fL (7.2-11.7); MONO # 0.4 K/uL (0.0-0.8); MONO % 9.2 % (0.0-10.0); NEUT # 3.1 K/uL (1.8-7.0); NEUT % 65.7 % (50.0-75.0); RBC 2.85 Mil/uL (3.80-5.20); RED CELL DISTRIBUTION WIDTH 15.5 % (11.5-14.5); WHITE BLOOD COUNT 4.6 K/uL (4.8-10.8)
[2018-04-14] MEDS: cefTRIAXone IV 1 gm in Dextros 50 ML IVPB SCH (13:38)
--- NOTE | 2018-04-14 15:22 | CP.PCM.PN ---
Subjective - Date & Time of Evaluation Date of Evaluation: 04/14/18 Time of Evaluation: 15:19 - Subjective Subjective: feels better no more n, v, diarrhea No dyspnea, CPs HTN increased Creat sl better at 2.3 Urine protein 1860mg Objective - Vital Signs/Intake and Output Vital Signs (last 24 hours): Temp Pulse Resp BP Pulse Ox 98.7 F 93 H 20 176/81 H 97 04/14/18 07:43 04/14/18 10:14 04/14/18 07:43 04/14/18 10:14 04/14/18 07:43 Intake and Output: 04/14/18 04/14/18 06:59 18:59 Intake Total 920 Balance 920 - Medications Medications: Current Medications Amlodipine Besylate (Norvasc) 10 mg PO DAILY [facility] Last Admin: 04/14/18 10:16 Dose: 10 mg Dextrose (Dextrose 50% Inj) 0 ml IVP .STAT PRN; Protocol PRN Reason: Hypoglycemia Protocol Dextrose (Glutose 15) 0 gm PO .ONCE PRN; Protocol PRN Reason: Hypoglycemia Protocol Divalproex Sodium (Depakote Dr) 500 mg PO DAILY [facility] Last Admin: 04/14/18 10:16 Dose: 500 mg Glucagon (Glucagen Diagnostic Kit) 0 mg IM .STAT PRN; Protocol PRN Reason: Hypoglycemia Protocol Dextrose (Dextrose 5% In Water 1000 Ml) 1,000 mls @ 0 mls/hr IV .Q0M PRN; Protocol PRN Reason: Hypoglycemia Protocol Sodium Chloride (Sodium Chloride 0.9%) 1,000 mls @ 100 mls/hr IV .Q10H [facility] Last Admin: 04/14/18 13:36 Dose: 100 mls/hr Ceftriaxone Sodium (Rocephin Iv 1 Gm Duplex) 50 mls @ 50 mls/30 min IVPB Q24H [facility]; Protocol Last Admin: 04/14/18 13:38 Dose: 50 mls/30 min Insulin Human Regular (Novolin R) 15 unit SC ACB [facility] Last Admin: 04/14/18 09:05 Dose: 15 unit Ondansetron HCl (Zofran Inj) 4 mg IVP Q6 PRN PRN Reason: Nausea/Vomiting Last Admin: 04/13/18 19:49 Dose: 4 mg Pantoprazole Sodium (Protonix Inj) 40 mg IVP Q24H [facility] Last Admin: 04/14/18 10:16 Dose: 40 mg Risperidone (Risperdal Tab) 1 mg PO [facility] Last Admin: 04/13/18 22:01 Dose: 1 mg Rosuvastatin Calcium (Crestor) 2.5 mg PO [facility] Last Admin: 04/13/18 22:01 Dose: 2.5 mg Sertraline HCl (Zoloft) 100 mg PO [facility] Last Admin: 04/13/18 22:01 Dose: 100 mg Tamsulosin HCl (Flomax) 0.4 mg PO DAILY [facility] Last Admin: 04/14/18 10:16 Dose: 0.4 mg - Labs Labs: 04/14/18 11:53 04/14/18 07:07 PT 13.3 SECONDS (9.7-12.2) H 04/13/18 09:24 INR 1.2 04/13/18 09:24 - Constitutional Appears: No Acute Distress, Chronically Ill - Head Exam Head Exam: ATRAUMATIC, NORMAL INSPECTION - Eye Exam Eye Exam: EOMI, Normal appearance - Neck Exam Neck Exam: Normal Inspection. absent: Tenderness - Respiratory Exam Respiratory Exam: Clear to Ausculation Bilateral, NORMAL BREATHING PATTERN - Cardiovascular Exam Cardiovascular Exam: REGULAR RHYTHM, +S1 - GI/Abdominal Exam GI & Abdominal Exam: Soft. absent: Tenderness - Extremities Exam Extremities Exam: Normal Inspection. absent: Tenderness - Neurological Exam Neurological Exam: Awake, CN II-XII Intact - Skin Skin Exam: Dry, Warm Assessment and Plan (1) TRISTON (acute kidney injury) Status: Acute (2) Gastroparesis Status: Acute (3) Proteinuria Status: Acute (4) Hyperlipidemia Status: Chronic - Assessment and Plan (Free Text) Plan: Continue IV fluids Repeat chemistries Adjust BP meds Eventually resume ERENDIRA I when renal function stabilizes
--- NOTE | 2018-04-14 16:28 | CP.PCM.PN ---
Subjective - Date & Time of Evaluation Date of Evaluation: 04/14/18 Time of Evaluation: 09:00 - Subjective Subjective: PGY-[address] Sosa Service Patient is seen and examined at bedside. Patient states feeling well today, reports no abdominal pain this morning, denies nausea, vomiting, diarrhea. Patient has not had a bowel movement since day of admission. Patient is tolerating clear liquid diet and is ambulating, denies any urinary symptoms such as burning, pain urinating or blood in urine. Patient denies any bleeding. no fever, chills, dizziness, weakness, lightheadedness, chest pain shortness of breath, lower extremity swelling or pain, or back pain. Objective - Vital Signs/Intake and Output Vital Signs (last 24 hours): Temp Pulse Resp BP Pulse Ox 97.8 F 87 20 158/78 H 99 04/14/18 15:52 04/14/18 15:52 04/14/18 15:52 04/14/18 15:52 04/14/18 15:52 Intake and Output: 04/14/18 04/14/18 06:59 18:59 Intake Total 920 700 Balance 920 700 - Medications Medications: Current Medications Amlodipine Besylate (Norvasc) 10 mg PO DAILY [facility] Last Admin: 04/14/18 10:16 Dose: 10 mg Carvedilol (Coreg) 3.125 mg PO BID [facility] Dextrose (Dextrose 50% Inj) 0 ml IVP .STAT PRN; Protocol PRN Reason: Hypoglycemia Protocol Dextrose (Glutose 15) 0 gm PO .ONCE PRN; Protocol PRN Reason: Hypoglycemia Protocol Divalproex Sodium (Fortino Ding) 500 mg PO DAILY [facility] Last Admin: 04/14/18 10:16 Dose: 500 mg Glucagon (Glucagen Diagnostic Kit) 0 mg IM .STAT PRN; Protocol PRN Reason: Hypoglycemia Protocol Dextrose (Dextrose 5% In Water 1000 Ml) 1,000 mls @ 0 mls/hr IV .Q0M PRN; Protocol PRN Reason: Hypoglycemia Protocol Sodium Chloride (Sodium Chloride 0.9%) 1,000 mls @ 100 mls/hr IV .Q10H [facility] Last Admin: 04/14/18 13:36 Dose: 100 mls/hr Ceftriaxone Sodium (Rocephin Iv 1 Gm Duplex) 50 mls @ 50 mls/30 min IVPB Q24H [facility]; Protocol Last Admin: 04/14/18 13:38 Dose: 50 mls/30 min Insulin Human Regular (Novolin R) 15 unit SC ACB [facility] Last Admin: 04/14/18 09:05 Dose: 15 unit Ondansetron HCl (Zofran Inj) 4 mg IVP Q6 PRN PRN Reason: Nausea/Vomiting Last Admin: 04/13/18 19:49 Dose: 4 mg Pantoprazole Sodium (Protonix Inj) 40 mg IVP Q24H [facility] Last Admin: 04/14/18 10:16 Dose: 40 mg Risperidone (Risperdal Tab) 1 mg PO [facility] Last Admin: 04/13/18 22:01 Dose: 1 mg Rosuvastatin Calcium (Crestor) 2.5 mg PO [facility] Last Admin: 04/13/18 22:01 Dose: 2.5 mg Sertraline HCl (Zoloft) 100 mg PO [facility] Last Admin: 04/13/18 22:01 Dose: 100 mg Tamsulosin HCl (Flomax) 0.4 mg PO DAILY [facility] Last Admin: 04/14/18 10:16 Dose: 0.4 mg - Labs Labs: 04/14/18 11:53 04/14/18 07:07 PT 13.3 SECONDS (9.7-12.2) H 04/13/18 09:24 INR 1.2 04/13/18 09:24 - Constitutional Appears: Well, Non-toxic, No Acute Distress - Head Exam Head Exam: ATRAUMATIC, NORMAL INSPECTION, NORMOCEPHALIC - Eye Exam Eye Exam: EOMI, Normal appearance - ENT Exam ENT Exam: Mucous Membranes Moist, Normal Exam - Neck Exam Neck Exam: Full ROM, Normal Inspection - Respiratory Exam Respiratory Exam: Clear to Ausculation Bilateral, NORMAL BREATHING PATTERN. absent: Rales, Rhonchi, Wheezes - Cardiovascular Exam Cardiovascular Exam: REGULAR RHYTHM, +S1, +S2 - GI/Abdominal Exam GI & Abdominal Exam: Soft, Normal Bowel Sounds. absent: Distended, Tenderness - Extremities Exam Extremities Exam: Full ROM, Normal Inspection. absent: Pedal Edema, Tenderness - Back Exam Back Exam: NORMAL INSPECTION. absent: rash noted, tenderness - Neurological Exam Neurological Exam: Alert, Awake, CN II-XII Intact, Normal Gait, Oriented x3 - Psychiatric Exam Psychiatric exam: Normal Affect, Normal Mood - Skin Skin Exam: Dry, Intact, Normal Color, Warm Assessment and Plan - Assessment and Plan (Free Text) Assessment: Patient is a 58 year old Female with pmhx DMII, HTN, arthritis, nephrolithiasis, HLD, schizophrenia admitted for evaluation of epigastric pain associated with vomiting/diarrhea, improving symptoms. CT shows b/l pleural effusions bibasilar atelectatic inflitrates, bladder u/s showing diffuse mild bladder wall thickening, b/l diffuse renal increased cortical echogenecity. U rine culture + for gram negative rods, asymptomatic/no urinary symptoms. Plan: Epigastric pain - resolved pain today - Lipase normal - CT abd/pelvbvis without IV or PO contrast - diverticulosis noted, pending official results - STAT CT abd/pelvis WITH PO CONTRAST - no diverticulitis noted - zofran 4mg IV Q6H PRN nausea - Protonix 40 mg IV Qdaily - GI consult - DR Manny gill is appreciated - Advance diet slowly as tolerated Continue with IVF hydration, supportive care Anti-emetic therapy PRN Follow up renal recommendations Continue with PPI therapy No planned GI intervention at this time, will sign off case. Please reconsult as necessary, thank you. - Advance diet as tolerated - now HHD - continue monitoring UTI - urine cx gram - rods - f/u sensitivity - patient started on rocephin 1gm PO QD - asymptomatic at this time Hypertensive urgency, improving - this morning bp 145/68, elevated at 160s SBP last night - improved bp - cont norvasc 5mg PO Qd - Added by Nephro Dr Bey -Coreg 3.125 PO BID - will continue to monitor vitals Anemia - Hb dropped from 10.3 yesterday to 7.8 - side reaction from fluid administration - blood work taken from same arm as IV fluid administration is given - repeat CBC in the pm - Hb now is 8.5 - will continue to follow - Iron panel - iron serum, TIBC, ferritin, B12, folate - 40/319/162/519/15 - occult blood - negative x 2 Diarrhea - no new episodes reported - Occult blood x 2 - negative - Stool ova and parasite, stool culture, fecal leukocytes - f/u - CT abdomen/pelvis with PO contrast - divericulosis without diverticulitis, no other significant findings Pleural effusion - CT abdomen and pelvis -Modified b/l pleural effusion bibasilar atelectasis inflitrates. - Prior echo (September 2017) - mild LVH, systolic function is normal - Repeat echo 04/13 - mild concentric left bentricular hypertrophy, left ventricular systolic function normal , EF 55-60%, mild to moderate aortic regurgitation. mild pulm hypertension, small circumferential pericardial effusion, moderate left pleural effusion. - check pro BNP - Pulmonology consult - Dr Mcmahon - patient does not need thoracentesis. will continue to follow Dr Mcmahon's recs Acute on chronic renal insufficiency - etiology - diarrhea, nausea, hx of nephrolithiasis ( no stone on current CT test, previous 3.5 mm obstructing mid distal left ureter) - renal and bladder U/S - b/l diffuse renal increased cortical echogenicity, possible medical renal disease, diffuse mild bladder wall thickening - BUN/Cr - slightly improving - Nephro Dr Bey - will continue recs Continue IV fluids Repeat chemistries Adjust BP meds Eventually resume ERENDIRA I when renal function stabilizes Hyperkalemia - resolved now - 4.6 - hold coozar due to s/e of hyperkalemia - continue to monitor hx of Nephrolithiasis - Flomax 0.4 mg PO daily - U/A: pyruira, hematuria - patient did not follow with urologist for nephrolithiasis in last CT scan - current CT no stone - U/S - no stones or hydronephrosis noted - Urology consult - Dr Price - continue to follow up hx of insulin dependent DMII - HbA1C, lipid panel f/u - accuchecks Q6h - clear diabetic diet - resume Insulin regimen - novolin R 15 U ACB - patient took insulin this morning psych hx - schizophrenia - risperidone 1mg PO HS - Depakote 500mg PO Daily - Zoloft 100mg PO qHS Prophylactic measure - SCDs B/L - protonix 40mg IV Q daily - hold anticoagulation due to "black stools" reported by patient - Ns @ 100 cc/hr - follow up am labs - Heart healthy diet - monitor for tolerance DISPO: official Urine culture report and Sensitivity report pending. Adjust abx as per sensitivity report. continue to monitor BP for am, as well as Hb levels. Monitor toleration of diet, now on HHD. if patient stable and am labs within normal limits as well as pending lab results, patient can potentially be discharge home tomorrow 04/15 with PO antibiotics. Plan discussed with Dr Ian Barajas, PGY-1
[2018-04-14] MEDS ORDERED: cefTRIAXone IV 1 gm in Dextros 1 GM in Dextrose 5% In Water 50 ML IVPB SCH (21:16)
[2018-04-14] MEDS: Rosuvastatin Calcium 2.5 mg Tab PO SCH (21:44)
[2018-04-15] MEDS: Sodium Chloride 0.9% 1,000 ML IV SCH ×3 (01:25→14:00)
[2018-04-15 07:11] LABS: BASO % 0.7 % (0.0-2.0); EOS # 0.2 K/uL (0.0-0.7); EOS % 5.1 % (0.0-4.0); HEMOGLOBIN 7.7 g/dL (11.0-16.0); LYMPH # 1.2 K/uL (1.0-4.3); LYMPH % 26.3 % (20.0-40.0); MEAN CELL VOLUME 87.4 fL (81.0-99.0); MEAN CORPUSCULAR HEMOGLOBIN 29.4 pg (27.0-31.0); MEAN CORPUSCULAR HGB CONC 33.7 g/dL (33.0-37.0); MEAN PLATELET VOLUME 7.4 fL (7.2-11.7); MONO # 0.4 K/uL (0.0-0.8); NEUT # 2.6 K/uL (1.8-7.0); NEUT % 58.9 % (50.0-75.0); RBC 2.63 Mil/uL (3.80-5.20); RED CELL DISTRIBUTION WIDTH 15.4 % (11.5-14.5); WHITE BLOOD COUNT 4.4 K/uL (4.8-10.8)
[2018-04-15 07:43] LABS: ALB/GLOB RATIO 0.9 (1.0-2.1); ALBUMIN 3.4 g/dL (3.5-5.0); CALCIUM 8.2 mg/dl (8.6-10.4)
[2018-04-15 08:03] VITALS: O2SAT 96
[2018-04-15] MEDS: (Novolin R) Insulin Human Regular 100 units/ml vial SC SCH (08:49)
--- NOTE | 2018-04-15 09:25 | CP.PCM.PN ---
Subjective - Date & Time of Evaluation Date of Evaluation: 04/15/18 Time of Evaluation: 09:23 - Subjective Subjective: Notes reviewed Patient comfortable, sitting up i n bed Eating breakfast No n/v/d or abdominal pain overnight Feels well, reports no complaints at this time No cp or palp No urinary complaints No shaikh or vision changes 10 point ros negative other than stated above Objective - Vital Signs/Intake and Output Vital Signs (last 24 hours): Temp Pulse Resp BP Pulse Ox 97.9 F 69 20 155/89 H 96 04/15/18 08:00 04/15/18 08:00 04/15/18 08:00 04/15/18 08:00 04/15/18 08:00 Intake and Output: 04/15/18 04/15/18 06:59 18:59 Intake Total 920 Balance 920 - Medications Medications: Current Medications Amlodipine Besylate (Norvasc) 10 mg PO DAILY [facility] Last Admin: 04/14/18 10:16 Dose: 10 mg Carvedilol (Coreg) 3.125 mg PO BID [facility] Last Admin: 04/14/18 17:25 Dose: 3.125 mg Dextrose (Dextrose 50% Inj) 0 ml IVP .STAT PRN; Protocol PRN Reason: Hypoglycemia Protocol Dextrose (Glutose 15) 0 gm PO .ONCE PRN; Protocol PRN Reason: Hypoglycemia Protocol Divalproex Sodium (Depakote Dr) 500 mg PO DAILY [facility] Last Admin: 04/14/18 10:16 Dose: 500 mg Glucagon (Glucagen Diagnostic Kit) 0 mg IM .STAT PRN; Protocol PRN Reason: Hypoglycemia Protocol Dextrose (Dextrose 5% In Water 1000 Ml) 1,000 mls @ 0 mls/hr IV .Q0M PRN; Protocol PRN Reason: Hypoglycemia Protocol Sodium Chloride (Sodium Chloride 0.9%) 1,000 mls @ 100 mls/hr IV .Q10H [facility] Last Admin: 04/15/18 01:25 Dose: 100 mls/hr Ceftriaxone Sodium (Rocephin Iv 1 Gm Duplex) 50 mls @ 50 mls/30 min IVPB Q24H [facility]; Protocol Last Admin: 04/14/18 13:38 Dose: 50 mls/30 min Insulin Human Regular (Novolin R) 15 unit SC ACB [facility] Last Admin: 04/15/18 08:49 Dose: 15 unit Ondansetron HCl (Zofran Inj) 4 mg IVP Q6 PRN PRN Reason: Nausea/Vomiting Last Admin: 04/13/18 19:49 Dose: 4 mg Pantoprazole Sodium (Protonix Inj) 40 mg IVP Q24H [facility] Last Admin: 04/14/18 10:16 Dose: 40 mg Risperidone (Risperdal Tab) 1 mg PO HS [facility] Last Admin: 04/14/18 21:23 Dose: 1 mg Rosuvastatin Calcium (Crestor) 2.5 mg PO HS [facility] Last Admin: 04/14/18 21:44 Dose: Not Given Sertraline HCl (Zoloft) 100 mg PO HS [facility] Last Admin: 04/14/18 21:23 Dose: 100 mg Tamsulosin HCl (Flomax) 0.4 mg PO DAILY [facility] Last Admin: 04/14/18 10:16 Dose: 0.4 mg - Labs Labs: 04/15/18 07:02 04/15/18 07:02 PT 13.3 SECONDS (9.7-12.2) H 04/13/18 09:24 INR 1.2 04/13/18 09:24 - Constitutional Appears: Well, Non-toxic - Head Exam Head Exam: ATRAUMATIC, NORMOCEPHALIC - Eye Exam Eye Exam: EOMI, Normal appearance - ENT Exam ENT Exam: Mucous Membranes Moist, Normal Oropharynx - Respiratory Exam Respiratory Exam: Clear to Ausculation Bilateral, NORMAL BREATHING PATTERN. absent: Rales, Rhonchi, Wheezes - Cardiovascular Exam Cardiovascular Exam: +S1, +S2. absent: JVD, Murmur - GI/Abdominal Exam GI & Abdominal Exam: Soft, Normal Bowel Sounds - Extremities Exam Extremities Exam: absent: Pedal Edema, Tenderness - Neurological Exam Neurological Exam: Alert, Awake - Skin Skin Exam: Dry, Intact Assessment and Plan (1) CKD (chronic kidney disease) Status: Acute (2) TRISTON (acute kidney injury) Status: Acute (3) Proteinuria Status: Acute (4) Diabetes mellitus Status: Chronic (5) HTN (hypertension) Status: Chronic (6) Schizophrenia Status: Chronic - Assessment and Plan (Free Text) Assessment: TRISTON on CKD stable Hypertension uncontrolled, coreg added Consider adding vasodilator to control bp as hr low this am Electrolytes acceptable Continue to hold acei/arb at this point Continue current care
[2018-04-15] MEDS: Divalproex 500 mg DR Tab PO SCH (10:08)
[2018-04-15 11:17] LABS: HEMOGLOBIN 8.9 g/dL (11.0-16.0); MEAN CORPUSCULAR HEMOGLOBIN 29.7 pg (27.0-31.0); MEAN CORPUSCULAR HGB CONC 33.8 g/dL (33.0-37.0); MEAN PLATELET VOLUME 7.4 fL (7.2-11.7); RED CELL DISTRIBUTION WIDTH 15.1 % (11.5-14.5); WHITE BLOOD COUNT 4.6 K/uL (4.8-10.8)
[2018-04-15 12:03] LABS: SQUAMOUS EPITHIAL 1 /hpf (0-5); URINE BILIRUBIN NEGATIVE (NEGATIVE); URINE BLOOD 1+ (NEGATIVE); URINE CLARITY Clear (Clear); URINE COLOR Straw (YELLOW); URINE GLUCOSE (UA) NORMAL (Normal); URINE LEUKOCYTE ESTERASE 2+ Leu/uL (Negative); URINE PROTEIN 2+ mg/dL (NEGATIVE); URINE UROBILINOGEN NORMAL mg/dL (0.2-1.0)
--- NOTE | 2018-04-15 14:04 | CP.PCM.DIS ---
<MeraAbril olivier V - Last Filed: 04/15/18 17:45> Provider - Provider Date of Admission: 04/13/18 06:49 Attending physician: Quentin Tong MD Consults: 04/13/18 09:40 Nephrology Consult Routine Comment: Consulting Provider: Odette Luna Consulting Physician: Odette Luna Reason for Consult: acute on chronic renal insuffiency, hx of dm/htn 04/13/18 10:00 Pulmonology Consult Routine Comment: Consulting Provider: Dennys Mcmahon Consulting Physician: Dennys Mcmahon Reason for Consult: pleural effusion Hospital Course - Lab Results Lab Results: Micro Results 04/13/18 11:51 Blood Blood Culture - Preliminary NO GROWTH AFTER 48 HOURS 04/13/18 09:24 Blood Blood Culture - Preliminary NO GROWTH AFTER 48 HOURS 04/13/18 05:01 Urine,Clean Catch Urine Culture - Final Escherichia Coli Most Recent Lab Values WBC 4.6 K/uL (4.8-10.8) L 04/15/18 11:09 RBC 3.00 Mil/uL (3.80-5.20) L 04/15/18 11:09 Hgb 8.9 g/dL (11.0-16.0) L 04/15/18 11:09 Hct 26.4 % (34.0-47.0) L 04/15/18 11:09 MCV 88.0 fL (81.0-99.0) 04/15/18 11:09 MCH 29.7 pg (27.0-31.0) 04/15/18 11:09 MCHC 33.8 g/dL (33.0-37.0) 04/15/18 11:09 RDW 15.1 % (11.5-14.5) H 04/15/18 11:09 Plt Count 217 K/uL (130-400) 04/15/18 11:09 MPV 7.4 fL (7.2-11.7) 04/15/18 11:09 Neut % (Auto) 58.9 % (50.0-75.0) 04/15/18 07:02 Lymph % (Auto) 26.3 % (20.0-40.0) 04/15/18 07:02 Long % (Auto) 9.0 % (0.0-10.0) 04/15/18 07:02 Eos % (Auto) 5.1 % (0.0-4.0) H 04/15/18 07:02 Baso % (Auto) 0.7 % (0.0-2.0) 04/15/18 07:02 Neut # (Auto) 2.6 K/uL (1.8-7.0) 04/15/18 07:02 Lymph # (Auto) 1.2 K/uL (1.0-4.3) 04/15/18 07:02 Long # (Auto) 0.4 K/uL (0.0-0.8) 04/15/18 07:02 Eos # (Auto) 0.2 K/uL (0.0-0.7) 04/15/18 07:02 Baso # (Auto) 0.0 K/uL (0.0-0.2) 04/15/18 07:02 Retic Count 2.4 % (0.5-1.5) H D 04/13/18 10:03 Haptoglobin 136.3 mg/dL (30.0-200.0) 04/14/18 08:15 PT 13.3 SECONDS (9.7-12.2) H 04/13/18 09:24 INR 1.2 04/13/18 09:24 Sodium 136 mmol/L (132-148) 04/15/18 07:02 Potassium 5.1 mmol/L (3.6-5.2) 04/15/18 07:02 Chloride 107 mmol/L (98-107) 04/15/18 07:02 Carbon Dioxide 20 mmol/L (22-30) L 04/15/18 07:02 Anion Gap 14 (10-20) 04/15/18 07:02 BUN 32 mg/dL (7-17) H 04/15/18 07:02 Creatinine 2.3 mg/dL (0.7-1.2) H 04/15/18 07:02 Est GFR ( Amer) 26 04/15/18 07:02 Est GFR (Non-Af Amer) 22 04/15/18 07:02 POC Glucose (mg/dL) 98 mg/dL (65-110) 04/15/18 11:13 Random Glucose 161 mg/dL (65-105) H D 04/15/18 07:02 Hemoglobin A1c 5.2 % (4.2-6.5) 04/13/18 10:03 Calcium 8.2 mg/dl (8.6-10.4) L 04/15/18 07:02 Phosphorus 5.1 mg/dL (2.5-4.5) H 04/15/18 07:02 Magnesium 1.9 mg/dL (1.6-2.3) 04/15/18 07:02 Iron 40 ug/dL (37-170) 04/13/18 10:03 TIBC 319 ug/dL (250-450) 04/13/18 10:03 % Saturation 13 (20-55) L 04/13/18 10:03 Ferritin 162.0 ng/mL 04/13/18 10:03 Total Bilirubin 0.2 mg/dL (0.2-1.3) 04/15/18 07:02 AST 28 U/L (14-36) 04/15/18 07:02 ALT 22 U/L (9-52) 04/15/18 07:02 Alkaline Phosphatase 91 U/L (38-126) 04/15/18 07:02 Lactate Dehydrogenase 339 U/L (313-618) 04/14/18 07:07 Total Protein 7.2 g/dL (6.3-8.3) 04/15/18 07:02 Albumin 3.4 g/dL (3.5-5.0) L 04/15/18 07:02 Globulin 3.8 gm/dL (2.2-3.9) 04/15/18 07:02 Albumin/Globulin Ratio 0.9 (1.0-2.1) L 04/15/18 07:02 Triglycerides 86 mg/dL (0-149) 04/14/18 07:07 Cholesterol 130 mg/dL (0-199) 04/14/18 07:07 LDL Cholesterol Direct 67 mg/dL (0-129) 04/14/18 07:07 HDL Cholesterol 40 mg/dL (30-70) 04/14/18 07:07 Lipase 152 U/L (23-300) 04/13/18 04:48 Vitamin B12 519 pg/mL (239-931) 04/13/18 04:48 Folate 15.2 ng/mL 04/13/18 04:48 Procalcitonin < 0.05 NG/ML (0.19-0.49) L 04/13/18 09:24 Urine Color Straw (YELLOW) 04/15/18 11:40 Urine Clarity Clear (Clear) 04/15/18 11:40 Urine pH 6.0 (5.0-8.0) 04/15/18 11:40 Ur Specific Flushing 1.005 (1.003-1.030) 04/15/18 11:40 Urine Protein 2+ mg/dL (NEGATIVE) H 04/15/18 11:40 Urine Glucose (UA) Normal mg/dL (Normal) 04/15/18 11:40 Urine Ketones Negative mg/dL (NEGATIVE) 04/15/18 11:40 Urine Blood 1+ (NEGATIVE) H 04/15/18 11:40 Urine Nitrate Negative (NEGATIVE) 04/15/18 11:40 Urine Bilirubin Negative (NEGATIVE) 04/15/18 11:40 Urine Urobilinogen Normal mg/dL (0.2-1.0) 04/15/18 11:40 Ur Leukocyte Esterase 2+ Juan Jose/uL (Negative) H 04/15/18 11:40 Urine WBC (Auto) 21 /hpf (0-5) H 04/15/18 11:40 Urine RBC (Auto) 10 /hpf (0-3) H 04/15/18 11:40 Ur Squamous Epith Cells 1 /hpf (0-5) 04/15/18 11:40 Urine Bacteria Occ (<OCC) H 04/13/18 04:11 Urine Collection Time 24 HRS 04/14/18 14:28 Urine Total Volume 2000 mL 04/14/18 14:28 Ur Protein 24 Hr Calc 1860.0 mg/24hr (42-225) H 04/14/18 14:28 Stool Occult Blood Negative (NEGATIVE) 04/13/18 12:12 Stool Occult Blood #2 Negative (NEGATIVE) 04/13/18 12:12 Stool Leukocytes, Qual Negative (NEGATIVE) 04/15/18 13:41 Blood Type A POSITIVE 04/14/18 09:10 Antibody Screen Negative 04/14/18 09:10 Discharge Plan - Discharge Medications Prescriptions: amLODIPine [Norvasc] 10 mg PO DAILY #30 tab Carvedilol [Coreg] 3.125 mg PO BID #60 tab Sulfamethoxazole/Trimethoprim [Bactrim DS 800 mg-160 mg] 1 tab PO BID #8 tab - Follow Up Plan Condition: STABLE Disposition: HOME/ ROUTINE Instructions: Urinary Tract Infection, Adult (DC), Acute Kidney Failure (DC), Pleural Effusion (DC), Amlodipine, Carvedilol, Sulfamethoxazole and Trimethoprim Additional Instructions: Follow up on April [address] [facility], appointment is already set for the clinic. Follow up appointment for blood pressure check up on new medication: refill on medication and to check BMP on discharge. Recommending to receive referral to nephrology when you follow up in the clinic for further monitoring of your kidney function. Cozaar on hold given your renal function. Do not eat bananas, kiwi, guava to prevent high potassium. Make a blood pressure diary and bring it on your appointment on the . Jefry un seguimiento el 15 de enero en la [facility], la ronda ya est establecida para la clnica. Ronda de seguimiento para el chequeo de la presin arterial en un nuevo medicamento: rellene el medicamento y verifique el BMP al momento del meño Recomienda recibir lora derivacin a nefrologa cuando realice un seguimiento en la clnica para realizar un seguimiento adicional de la funcin renal. Cozaar en espera aarti monroe funcin renal. No coma pltanos, kiwi, guayaba para evitar el alto potasio. Jefry un diario de presin arterial y llvelo a monroe ronda el da 15. Referrals: [facility] at [facility] [place] [Outside] Odette Luna MD [Staff Provider] - Attending/Attestation - Attestation I have personally seen and examined this patient.: Yes I have fully participated in the care of the patient.: Yes I have reviewed all pertinent clinical information, including history, physical exam and plan: Yes <Jada Bauman - Last Filed: 04/15/18 22:39> Provider - Provider Date of Admission: 04/13/18 06:49 Attending physician: Quentin Tong MD Consults: 04/13/18 09:40 Nephrology Consult Routine Comment: Consulting Provider: Odette Luna Consulting Physician: Odette Luna Reason for Consult: acute on chronic renal insuffiency, hx of dm/htn 04/13/18 10:00 Pulmonology Consult Routine Comment: Consulting Provider: Denyns Mcmahon Consulting Physician: Dennys Mcmahon Reason for Consult: pleural effusion Time Spent in preparation of Discharge (in minutes): 35 Hospital Course - Lab Results Lab Results: Micro Results 04/13/18 11:51 Blood Blood Culture - Preliminary NO GROWTH AFTER 48 HOURS 04/13/18 09:24 Blood Blood Culture - Preliminary NO GROWTH AFTER 48 HOURS 04/13/18 05:01 Urine,Clean Catch Urine Culture - Final Escherichia Coli Most Recent Lab Values WBC 4.6 K/uL (4.8-10.8) L 04/15/18 11:09 RBC 3.00 Mil/uL (3.80-5.20) L 04/15/18 11:09 Hgb 8.9 g/dL (11.0-16.0) L 04/15/18 11:09 Hct 26.4 % (34.0-47.0) L 04/15/18 11:09 MCV 88.0 fL (81.0-99.0) 04/15/18 11:09 MCH 29.7 pg (27.0-31.0) 04/15/18 11:09 MCHC 33.8 g/dL (33.0-37.0) 04/15/18 11:09 RDW 15.1 % (11.5-14.5) H 04/15/18 11:09 Plt Count 217 K/uL (130-400) 04/15/18 11:09 MPV 7.4 fL (7.2-11.7) 04/15/18 11:09 Neut % (Auto) 58.9 % (50.0-75.0) 04/15/18 07:02 Lymph % (Auto) 26.3 % (20.0-40.0) 04/15/18 07:02 Long % (Auto) 9.0 % (0.0-10.0) 04/15/18 07:02 Eos % (Auto) 5.1 % (0.0-4.0) H 04/15/18 07:02 Baso % (Auto) 0.7 % (0.0-2.0) 04/15/18 07:02 Neut # (Auto) 2.6 K/uL (1.8-7.0) 04/15/18 07:02 Lymph # (Auto) 1.2 K/uL (1.0-4.3) 04/15/18 07:02 Long # (Auto) 0.4 K/uL (0.0-0.8) 04/15/18 07:02 Eos # (Auto) 0.2 K/uL (0.0-0.7) 04/15/18 07:02 Baso # (Auto) 0.0 K/uL (0.0-0.2) 04/15/18 07:02 Retic Count 2.4 % (0.5-1.5) H D 04/13/18 10:03 Haptoglobin 136.3 mg/dL (30.0-200.0) 04/14/18 08:15 PT 13.3 SECONDS (9.7-12.2) H 04/13/18 09:24 INR 1.2 04/13/18 09:24 Sodium 136 mmol/L (132-148) 04/15/18 07:02 Potassium 5.1 mmol/L (3.6-5.2) 04/15/18 07:02 Chloride 107 mmol/L (98-107) 04/15/18 07:02 Carbon Dioxide 20 mmol/L (22-30) L 04/15/18 07:02 Anion Gap 14 (10-20) 04/15/18 07:02 BUN 32 mg/dL (7-17) H 04/15/18 07:02 Creatinine 2.3 mg/dL (0.7-1.2) H 04/15/18 07:02 Est GFR ( Amer) 26 04/15/18 07:02 Est GFR (Non-Af Amer) 04/15/18 07:02 POC Glucose (mg/dL) 98 mg/dL (65-110) 04/15/18 11:13 Random Glucose 161 mg/dL (65-105) H D 04/15/18 07:02 Hemoglobin A1c 5.2 % (4.2-6.5) 04/13/18 10:03 Calcium 8.2 mg/dl (8.6-10.4) L 04/15/18 07:02 Phosphorus 5.1 mg/dL (2.5-4.5) H 04/15/18 07:02 Magnesium 1.9 mg/dL (1.6-2.3) 04/15/18 07:02 Iron 40 ug/dL (37-170) 04/13/18 10:03 TIBC 319 ug/dL (250-450) 04/13/18 10:03 % Saturation 13 (20-55) L 04/13/18 10:03 Ferritin 162.0 ng/mL 04/13/18 10:03 Total Bilirubin 0.2 mg/dL (0.2-1.3) 04/15/18 07:02 AST 28 U/L (14-36) 04/15/18 07:02 ALT 22 U/L (9-52) 04/15/18 07:02 Alkaline Phosphatase 91 U/L (38-126) 04/15/18 07:02 Lactate Dehydrogenase 339 U/L (313-618) 04/14/18 07:07 Total Protein 7.2 g/dL (6.3-8.3) 04/15/18 07:02 Albumin 3.4 g/dL (3.5-5.0) L 04/15/18 07:02 Globulin 3.8 gm/dL (2.2-3.9) 04/15/18 07:02 Albumin/Globulin Ratio 0.9 (1.0-2.1) L 04/15/18 07:02 Triglycerides 86 mg/dL (0-149) 04/14/18 07:07 Cholesterol 130 mg/dL (0-199) 04/14/18 07:07 LDL Cholesterol Direct 67 mg/dL (0-129) 04/14/18 07:07 HDL Cholesterol 40 mg/dL (30-70) 04/14/18 07:07 Lipase 152 U/L (23-300) 04/13/18 04:48 Vitamin B12 519 pg/mL (239-931) 04/13/18 04:48 Folate 15.2 ng/mL 04/13/18 04:48 Procalcitonin < 0.05 NG/ML (0.19-0.49) L 04/13/18 09:24 Urine Color Straw (YELLOW) 04/15/18 11:40 Urine Clarity Clear (Clear) 04/15/18 11:40 Urine pH 6.0 (5.0-8.0) 04/15/18 11:40 Ur Specific Flushing 1.005 (1.003-1.030) 04/15/18 11:40 Urine Protein 2+ mg/dL (NEGATIVE) H 04/15/18 11:40 Urine Glucose (UA) Normal mg/dL (Normal) 04/15/18 11:40 Urine Ketones Negative mg/dL (NEGATIVE) 04/15/18 11:40 Urine Blood 1+ (NEGATIVE) H 04/15/18 11:40 Urine Nitrate Negative (NEGATIVE) 04/15/18 11:40 Urine Bilirubin Negative (NEGATIVE) 04/15/18 11:40 Urine Urobilinogen Normal mg/dL (0.2-1.0) 04/15/18 11:40 Ur Leukocyte Esterase 2+ Juan Jose/uL (Negative) H 04/15/18 11:40 Urine WBC (Auto) 21 /hpf (0-5) H 04/15/18 11:40 Urine RBC (Auto) 10 /hpf (0-3) H 04/15/18 11:40 Ur Squamous Epith Cells 1 /hpf (0-5) 04/15/18 11:40 Urine Bacteria Occ (<OCC) H 04/13/18 04:11 Urine Collection Time 24 HRS 04/14/18 14:28 Urine Total Volume 2000 mL 04/14/18 14:28 Ur Protein 24 Hr Calc 1860.0 mg/24hr (42-225) H 04/14/18 14:28 Stool Occult Blood Negative (NEGATIVE) 04/13/18 12:12 Stool Occult Blood #2 Negative (NEGATIVE) 04/13/18 12:12 Blood Type A POSITIVE 04/14/18 09:10 Antibody Screen Negative 04/14/18 09:10 - Hospital Course Hospital Course: On admission: Patient is a 58 year old female with pmhx of IDDMII, HTN, HLD, Arthritis, nephrolithiasis, schizophrenia, depression, that came to ED today for epigastric pain that started 4 days ago. Patient states the epigastric pain feels like a burning pain, non radiating, associated with 3 episodes of yellow vomit and black diarrhea that happened in the last 4 days. Diarrhea and vomit happened at the same time period. Patient admits to have taking pepto bismuth and lemon for the abdominal pain, but it did not help. Patient admits to associated headaches, dizziness, as well as mucus tainted with blood, but no active bleeding from nose. Patient states she has not eaten since her symptoms started. Admits to mild wheezing at night times, and to chills, but no subjective fevers. denies NSAID use, recent illnesses or sick contacts. had recent travel to [place] to visit grandchildren. Denies diaphoresis, chest pain, cough, sore throat, skin changes, leg pain, urinary symptoms like burning, painful urination or blood in the urine. denies bright red blood in the stool. Hospital Course: Patient was evaluated for epigastric pain. CT abd/pelvbvis without contrast showed diverticulosis without diverticulitis. Lipase was normal. GI, Dr. Bryant was consulted and was determined that no immediate intervention was needed. CT also showed bladder wall thickening. Urine culture grew gram neg rods and patient was treated with Rocepin. Sensitives returned and patient was sent home with PO Bactrim. Patient was found to be in hypertensive urgency and treated with Norvasc and later Coreg was added to regimen. CT abdomen and pelvis also demonstrated modified b/l pleural effusion bibasilar atelectasis inflitrates. Prior echo (September 2017) showed mild LVH, systolic function is normal. An echo e was repeated on 04/13: mild concentric left bentricular hypertrophy, left ventricular systolic function normal , EF 55-60%, mild to moderate aortic regurgitation. mild pulm hypertension, small circumferential pericardial effusion, moderate left pleural effusion. Pulmonology, Dr Mcmahon, was consulted and it was determined that patient did not need thoracentesis. Patient was also evaluated for acute on chronic renal insufficiency. Patient had a renal and bladder U/S which showed b/l diffuse renal increased cortical echogenicity, possible medical renal disease, diffuse mild bladder wall thickening. Nephrology, Dr. Bey, was consulted and followed patient throughout stay. Patient's cozar was held due to hyperkalemia. Patient's chronic conditions of DM2 and schizophrenia were also managed. Patient improved throughout hospital stay and is stable for discharge home. Discharge instructions: patient is medically stable for discharge. Patient has a follow-up appointment at the [facility] on April 25. Patient's home medication: cozaar to be discontinued on discharge. Patient will receive 3 new prescriptions: 1) Norvasc 10mg tab once a day 2) Coreg 3.125mg tab twice a day 3) Bactrim 1 tab tab twice a day for four days to start tomorrow 04/16/18. Patient has an appointment on 04/25/18. Make sure to follow up on blood pressure check on new medication; refill on medications and to check BMP on discharge. patient recommended to receive referral to nephrology when she followups in the clinic for further monitoring of her kidney function. Patient's cozaar on hold given her renal function. Patient advised to not eat bananas, kiwi, guava to prevent high potassium. patient advised to make blood pressure diary and to bring to her appointment on the . Discharge Exam - Additional Findings Additional findings: - Constitutional Appears: Well, Non-toxic, No Acute Distress - Head Exam Head Exam: ATRAUMATIC, NORMAL INSPECTION, NORMOCEPHALIC - Eye Exam Eye Exam: EOMI, Normal appearance - ENT Exam ENT Exam: Mucous Membranes Moist, Normal Exam - Neck Exam Neck Exam: Full ROM, Normal Inspection - Respiratory Exam Respiratory Exam: Clear to Ausculation Bilateral, NORMAL BREATHING PATTERN. absent: Rales, Rhonchi, Wheezes - Cardiovascular Exam Cardiovascular Exam: REGULAR RHYTHM, +S1, +S2 - GI/Abdominal Exam GI & Abdominal Exam: Soft, Normal Bowel Sounds. absent: Distended, Tenderness - Extremities Exam Extremities Exam: Full ROM, Normal Inspection. absent: Pedal Edema, Tenderness - Neurological Exam Neurological Exam: Alert, Awake, Oriented x3 - Psychiatric Exam Psychiatric exam: Normal Affect, Normal Mood - Skin Skin Exam: Dry, Intact, Normal Color, Warm
[2018-04-15] MEDS: cefTRIAXone IV 1 gm in Dextros 50 ML IVPB SCH (14:29)
[2018-04-15 15:49] VITALS: BP 132/74; PULSE 85; TEMP 98.1
== END 2018-04-15 16:19 | disposition home or self-care (01) | DRG 469 ==
LOC: C.ER 03:17 → C.9E 06:49 → C.5S 07:17
PROVIDERS: ADMIT Family Medicine; ATTEND Family Medicine
DX: N17.9 Acute kidney failure, unspecified (principal); N12 Tubulo-interstitial nephritis, not specified as acute or chronic; J90 Pleural effusion, not elsewhere classified; K31.84 Gastroparesis; I31.3 Pericardial effusion (noninflammatory); E11.43 Type 2 diabetes mellitus with diabetic autonomic (poly)neuropathy; E11.22 Type 2 diabetes mellitus with diabetic chronic kidney disease; B96.20 Unspecified Escherichia coli [E. coli] as the cause of diseases classified elsewhere; N18.9 Chronic kidney disease, unspecified; E87.5 Hyperkalemia; J81.1 Chronic pulmonary edema; I16.1 Hypertensive emergency; I12.9 Hypertensive chronic kidney disease with stage 1 through stage 4 chronic kidney disease, or unspecified chronic kidney disease; I27.20 Pulmonary hypertension, unspecified; D64.9 Anemia, unspecified; J98.11 Atelectasis; F20.9 Schizophrenia, unspecified; I35.1 Nonrheumatic aortic (valve) insufficiency; K57.90 Diverticulosis of intestine, part unspecified, without perforation or abscess without bleeding; E78.5 Hyperlipidemia, unspecified; E78.00 Pure hypercholesterolemia, unspecified; Z79.4 Long term (current) use of insulin; Z87.442 Personal history of urinary calculi; Z87.440 Personal history of urinary (tract) infections; Z98.51 Tubal ligation status; Z80.3 Family history of malignant neoplasm of breast; Z83.3 Family history of diabetes mellitus

== ENCOUNTER 2018-04-18 06:45 | Observation (INO) | payer MEDICAID, SELFPAY ==
[2018-04-18 06:46] VITALS: BMI 26.5
--- NOTE | 2018-04-18 07:38 | C.PDOC ---
History Of Present Illness 58 y/o female presents to the ER complaining of shortness of breath and pleuritic chest pain which has been present for the past 3 days. Patient states that she also has non productive cough and runny nose for the past 3 days. Patient reports that she was recently admitted for pleural effusions in [facility] and she was discharged on 04/15/18. Denies having fever, chills, nausea, vomiting, abdominal pain,and diarrhea. PMhx: IDDM, HTN, hyperlipidemia, schizophrenia Time Seen by Provider: 04/18/18 07:04 Chief Complaint (Nursing): Chest Pain History Per: Patient History/Exam Limitations: no limitations Onset/Duration Of Symptoms: Days Current Symptoms Are (Timing): Still Present Severity: Moderate Past Medical History Reviewed: Historical Data, Nursing Documentation, Vital Signs Vital Signs: Last Vital Signs Temp 98.6 F 04/18/18 06:56 Pulse 100 H 04/18/18 06:56 Resp 20 04/18/18 06:56 BP 130/85 04/18/18 06:56 Pulse Ox 96 04/18/18 06:56 - Medical History PMH: Arthritis (L SH), Depression, Diabetes, HTN, Hypercholesterolemia, Hyperlipidemia, Schizophrenia Denies: Diverticulitis, Chronic Kidney Disease Surgical History: - [facility] Procedures OTHER SKIN & SUBQ I D (07/30/13) Family History: States: No Known Family Hx - Social History Hx Tobacco Use: No Hx Alcohol Use: No Hx Substance Use: No - Immunization History Hx Tetanus Toxoid Vaccination: Yes Hx Influenza Vaccination: Yes Hx Pneumococcal Vaccination: Yes Review Of Systems Except As Marked, All Systems Reviewed And Found Negative. Constitutional: Negative for: Fever, Chills ENT: Positive for: Nose Discharge Cardiovascular: Positive for: Chest Pain Respiratory: Positive for: Cough, Shortness of Breath Gastrointestinal: Negative for: Nausea, Vomiting, Abdominal Pain, Diarrhea Physical Exam - Physical Exam Appears: Non-toxic, No Acute Distress, Other (speaking in full sentences) Skin: Normal Color, Warm, Dry Head: Atraumatic, Normacephalic Eye(s): bilateral: Normal Inspection Nose: Normal Oral Mucosa: Moist Throat: Normal, No Erythema, No Exudate Neck: Supple Chest: Symmetrical Cardiovascular: Rhythm Regular Respiratory: Rales (rales at bases bilaterally), No Rhonchi, No Wheezing Gastrointestinal/Abdominal: Soft, No Tenderness, No Guarding, No Rebound Extremity: Normal ROM, Other (+2 pitting edema to bilateral lower extremities) Neurological/Psych: Oriented x3, Normal Speech ED Course And Treatment - Laboratory Results Result Diagrams: 04/18/18 07:34 04/18/18 07:34 ECG: Interpreted By Me, Viewed By Me ECG Rhythm: Sinus Rhythm ECG Interpretation: Normal Interpretation Of ECG: NSR with normal axises and no acute ST/ T wave changes Rate From EC O2 Sat by Pulse Oximetry: 96 (RA) Pulse Ox Interpretation: Normal - Other Rad CXR X-Ray: Viewed By Me, Read By Radiologist Interpretation: Date of service: 04/18/2018. PROCEDURE: CHEST RADIOGRAPH, 1 VIEW. HISTORY: SOB. COMPARISON: 11/19/2017. FINDINGS: LUNGS: Pulmonary vascular congestion. PLEURA: Bilateral pleural effusions left larger than right. CARDIOVASCULAR: No aortic atherosclerotic calcification present. OSSEOUS STRUCTURES: No significant abnormalities. VISUALIZED UPPER ABDOMEN: Normal. OTHER FINDINGS: None. IMPRESSION: Pulmonary vascular congestion/acute CHF. - CT Scan/US CT-Chest Other Rad Studies (CT/US): Read By Radiologist, Radiology Report Reviewed CT/US Interpretation: Date of service: 04/18/2018. CT chest without IV contrast. Indication: pleural effusion. Technique: Contiguous axial images were obtained through the chest without intravenous contrast enhancement. Sagittal and coronal reconstructions were generated and reviewed. This CT exam was performed using 1 or more of the following dose reduction techniques: Automated exposure control, adjustment of the MAA and/or kV according to patient size, and/or use of iterative reconstruction technique. . Radiation dose (DLP): 342.66 MGy-cm. Comparison: Chest x-ray performed 04/18/18, CT chest without contrast performed 04/13/18. Findings: Visualized portions of the inferior thyroid gland appear unremarkable. The unenhanced mediastinal and hilar vascular structures appear grossly unremarkable. Cardiomegaly. Trace pericardial effusion. Moderate to large bilateral pleural effusions associated consolidations. Pulmonary venous congestion. No pneumothorax. Limited visualization of the noncontrast upper abdomen appears grossly unremarkable. . Degenerative changes of the spine. Impression: Moderate to large bilateral pleural effusions and associated consolidations. Pulmonary venous congestion. Cardiomegaly. Trace pericardial effusion. Progress Note: Labs,EKG, and CXR ordered. Disposition - Disposition - Scribe Statement The provider has reviewed the documentation as recorded by the Scribe Yohan Cr Provider Attestation: All medical record entries made by the Scribe were at my direction and personally dictated by me. I have reviewed the chart and agree that the record accurately reflects my personal performance of the history, physical exam, medical decision making, and the department course for this patient. I have also personally directed, reviewed, and agree with the discharge instructions and disposition.
[2018-04-18 07:40] LABS: BASO % 0.9 % (0.0-2.0); EOS # 0.2 K/uL (0.0-0.7); EOS % 4.4 % (0.0-4.0); HEMOGLOBIN 8.6 g/dL (11.0-16.0); LYMPH % 22.6 % (20.0-40.0); MEAN CELL VOLUME 87.3 fL (81.0-99.0); MEAN CORPUSCULAR HGB CONC 34.3 g/dL (33.0-37.0); MEAN PLATELET VOLUME 7.2 fL (7.2-11.7); MONO # 0.3 K/uL (0.0-0.8); NEUT # 3.1 K/uL (1.8-7.0); NEUT % 66.1 % (50.0-75.0); RBC 2.88 Mil/uL (3.80-5.20); RED CELL DISTRIBUTION WIDTH 15.2 % (11.5-14.5); WHITE BLOOD COUNT 4.6 K/uL (4.8-10.8)
[2018-04-18 08:00] LABS: INR 1.3; PROTHROMBIN TIME 13.7 SECONDS (9.7-12.2)
[2018-04-18 08:06] LABS: B-TYPE NATRIURETIC PEPTIDE 2260 pg/mL (0-900); CK-MB 1.14 ng/mL (0.0-3.38)
[2018-04-18 08:12] LABS: ALBUMIN 4.1 g/dL (3.5-5.0); ALT/SGPT 21 U/L (9-52); AST/SGOT 29 U/L (14-36); BLOOD UREA NITROGEN 33 mg/dL (7-17); CALCIUM 8.5 mg/dl (8.6-10.4); GFR NON-AFRICAN AMERICAN 18
--- NOTE | 2018-04-18 11:45 | CP.PCM.HP ---
History of Present Illness - History of Present Illness History of Present Illness: Ervin Boyd PGY1 H&P for Dr. Moraes Pt is a 58yo F with PMH DM, HTN, HLD, schizophrenia, depression who presents to ED with shortness of breath and chest pain. Pt reports chest pain associated with shortness of breath for the past week, describing it as intermittent, pressure-like, and rating it 4/10. She says it is worse with deep breaths, coughing, and walking. Pt denies previous history of this symptom. She reports associated palpitations and dry cough. She also complains of some swelling in the legs which is new to her. She denies dizziness, radiation of the pain, sweating, or nausea. Pt has been drinking tea at home with mild relief. Of note, pt was recently admitted to [facility] (04/2018) for diverticulosis. Pt denies any weight loss, fever, chills, abdominal pain, nausea, vomiting, diarrhea, dysuria. SxH: tubal ligation 25 years ago FamH: liver CA (mother), back CA (father), breast CA (sister), DM (2 brothers) SocH: denies smoking, alcohol or illicit drug use, patient is unemployed and lives at home with daughter Allergies: NKDA Meds: risperidone 2mg PO HS, Simvastatin 10mg Po HS, Zoloft 100 mg PO QD, coreg 3.125mg PO BID, norvasc 5mg PO daily, Novolin 15 U ACB, Depakote 250 mg PO BID, metformin 500mg BID, feosol 325 BID, ASA 81 mg PO Daily PMD: clinic Present on Admission - Present on Admission Any Indicators Present on Admission: No Review of Systems - Constitutional Constitutional: absent: As Per HPI, Anorexia, Chills, Daytime Sleepiness, Excess fiona Sweating, Fatigue, Fever, Frequent Falls, Headache, Increased Appetite, Lethargy, Malaise, Night Sweats, Snoring, Sleep Apnea, Weight Gain, Weight Loss, Weakness, Other - Cardiovascular Cardiovascular: Chest Pain, Dyspnea, Dyspnea on Exertion, Palpitations, Pedal Edema. absent: Diaphoresis - Respiratory Respiratory: Cough, Dyspnea, Pain with Coughing. absent: Wheezing - Gastrointestinal Gastrointestinal: absent: Abdominal Pain, Diarrhea, Nausea, Vomiting - Genitourinary Genitourinary: absent: Dysuria - Integumentary Integumentary: Swelling - Neurological Neurological: absent: Dizziness - Endocrine Endocrine: Palpitations Past Patient History - Infectious Disease Hx of Infectious Diseases: None - Past Medical History & Family History Past Medical History?: Yes - Past Social History Smoking Status: Never Smoked - CARDIAC Hx Hypercholesterolemia: Yes Hx Hypertension: Yes - PULMONARY Hx Respiratory Disorders: No - NEUROLOGICAL Hx Neurological Disorder: Yes Other/Comment: schizophrenia - HEENT Hx HEENT Problems: No - RENAL Hx Chronic Kidney Disease: No - ENDOCRINE/METABOLIC Hx Diabetes Mellitus Type 2: Yes - HEMATOLOGICAL/ONCOLOGICAL Hx Blood Disorders: No - INTEGUMENTARY Hx Dermatological Problems: No - MUSCULOSKELETAL/RHEUMATOLOGICAL Hx Arthritis: Yes (L SH) - GASTROINTESTINAL Hx Diverticulitis: No - GENITOURINARY/GYNECOLOGICAL Hx Genitourinary Disorders: Yes Hx Urinary Tract Infection: Yes - PSYCHIATRIC Hx Depression: Yes Hx Schizophrenia: Yes Hx Substance Use: No - SURGICAL HISTORY Hx Surgeries: Yes Hx Tubal Ligation: Yes Other/Comment: ;fibroids removed - ANESTHESIA Hx Anesthesia: Yes Hx Anesthesia Reactions: No Meds Allergies/Adverse Reactions: Allergies Allergy/AdvReac Type Severity Reaction Status Date / Time No Known Allergies Allergy Verified 04/18/18 08:27 Physical Exam - Constitutional Appears: Well, No Acute Distress - Head Exam Head Exam: ATRAUMATIC, NORMOCEPHALIC - Eye Exam Eye Exam: EOMI, PERRL Pupil Exam: NORMAL ACCOMODATION - ENT Exam ENT Exam: Mucous Membranes Moist - Neck Exam Neck exam: Positive for: Full Rom. Negative for: Lymphadenopathy, Tenderness - Respiratory Exam Respiratory Exam: Rales. absent: Rhonchi, Wheezes, Respiratory Distress Additional comments: rales in b/l lower lung finley - Cardiovascular Exam Cardiovascular Exam: REGULAR RHYTHM, +S1, +S2. absent: Gallop, Rubs, Systolic Murmur - GI/Abdominal Exam GI & Abdominal Exam: Normal Bowel Sounds, Soft. absent: Distended, Firm, Tenderness - Extremities Exam Extremities exam: Positive for: pedal edema - Neurological Exam Neurological exam: Alert, CN II-XII Intact, Oriented x3 - Psychiatric Exam Psychiatric exam: Normal Affect, Normal Mood - Skin Skin Exam: Normal Color Results - Vital Signs Recent Vital Signs: Last Vital Signs Temp 98.6 F 04/18/18 06:56 Pulse 94 H 04/18/18 09:31 Resp 19 04/18/18 09:31 BP 176/84 H 04/18/18 09:31 Pulse Ox 96 04/18/18 09:34 - Labs Result Diagrams: 04/18/18 07:34 04/18/18 07:34 Labs: Laboratory Results - last 24 hr 04/18/18 04/18/18 04/18/18 07:34 07:34 07:34 WBC 4.6 L RBC 2.88 L Hgb 8.6 L Hct 25.1 L MCV 87.3 MCH 30.0 MCHC 34.3 RDW 15.2 H Plt Count 209 MPV 7.2 Neut % (Auto) 66.1 Lymph % (Auto) 22.6 Josephine % (Auto) 6.0 Eos % (Auto) 4.4 H Baso % (Auto) 0.9 Neut # (Auto) 3.1 Lymph # (Auto) 1.0 Josephine # (Auto) 0.3 Eos # (Auto) 0.2 Baso # (Auto) 0.0 PT 13.7 H INR 1.3 APTT 31 Sodium 134 Potassium 5.0 Chloride 105 Carbon Dioxide 19 L Anion Gap 15 BUN 33 H Creatinine 2.7 H Est GFR ( Amer) 22 Est GFR (Non-Af Amer) 18 Random Glucose 96 D Calcium 8.5 L Total Bilirubin 0.3 AST 29 ALT 21 Alkaline Phosphatase 113 Total Creatine Kinase 21 L CK-MB (Mass) 1.14 Troponin I < 0.0120 NT-Pro-B Natriuret Pep 2260 H Total Protein 8.2 Albumin 4.1 Globulin 4.1 H Albumin/Globulin Ratio 1.0 Influenza Typ A,B (EIA) 04/18/18 07:41 WBC RBC Hgb Hct MCV MCH MCHC RDW Plt Count MPV Neut % (Auto) Lymph % (Auto) Josephine % (Auto) Eos % (Auto) Baso % (Auto) Neut # (Auto) Lymph # (Auto) Josephine # (Auto) Eos # (Auto) Baso # (Auto) PT INR APTT Sodium Potassium Chloride Carbon Dioxide Anion Gap BUN Creatinine Est GFR ( Amer) Est GFR (Non-Af Amer) Random Glucose Calcium Total Bilirubin AST ALT Alkaline Phosphatase Total Creatine Kinase CK-MB (Mass) Troponin I NT-Pro-B Natriuret Pep Total Protein Albumin Globulin Albumin/Globulin Ratio Influenza Typ A,B (EIA) Negative for flu a/b Assessment & Plan - Assessment and Plan (Free Text) Assessment: 58yo F with PMH DM, HTN, HLD, schizophrenia, depression who presents to ED with shortness of breath and chest pain, admitted for further evaluation and treatment of b/l pleural effusions. Plan: Chest Pain - likely secondary to pleural effusions - r/o ACS - troponin negative, f/u remaining - CKMB negative - EKG: NSR - f/u remaining EKGs - ASA 325mg given - continue home ASA 81mg PO daily - crestor 2.5mg PO HS - ECHO (04/29): LVH, EF 55-60%, mild AR, mild pulm HTN, small pericardial effusion, moderate L pleural effusion - Cardiology consulted, Dr. Fraser - f/u recs Pleural Effusions - CT chest: cardiomegaly. trace pericardial effusion. moderate to large b/l pleural effusions. consolidations. pulmonary venous congestion. - CXR: pulmonary vascular congestion. - pt with shortness of breath - BNP 2260, likely elevated from renal failure - given lasix 40 in ED, reports improvement - ECHO (04/29): LVH, EF 55-60%, mild AR, mild pulm HTN, small pericardial effusion, moderate L pleural effusion - lasix 40mg IVP daily - Pulm Consulted, Dr. Mmcahon - f/u recs - IR consulted, Dr. Negron - f/u recs for thoracentesis CAP - CT chest: cardiomegaly. trace pericardial effusion. moderate to large b/l pleural effusions. consolidations - afebrile, no leukocytosis - Azithromycin 500mg IV daily - Ceftriaxone 1g IV daily - f/u BCx x2 r/o PE - pt with shortness of breath - f/u V/Q scan - f/u LE doppler Acute on Chronic Renal Failure - BUN/Cr 33/2.7 - pt taking bactrim from d/c on prior admission - pt with peripheral edema - avoid nephrotoxic agents - Nephrology consulted, Dr. Bey Anemia - H/H 8.6/25.1 - Fe studies on previous admission showing low %sat - continue home feosol 325mg PO BID DM2 - HbA1c 5.2 - sliding scale - novolin 15u ACB - hypoglycemia protocol - accuchecks ACHS HTN - continue home norvasc 5mg PO daily - continue home coreg 3.125mg PO BID HLD - Crestor 2.5mg PO HS - lipid panel wnl on prior admission Depression, Schizophrenia - continue home meds: zoloft 100mg PO HS risperdal 2mg PO HS Depakote 250mg PO BID PPX GI: Pepcid 20 DVT: Heparin 5000u sc q8h Diabetic Diet Case reviewed with Dr. Moraes
--- NOTE | 2018-04-18 11:48 | RAD ---
Date of service: 04/18/2018 PROCEDURE: CHEST RADIOGRAPH, 1 VIEW HISTORY: SOB COMPARISON: 11/19/2017 FINDINGS: LUNGS: Pulmonary vascular congestion. PLEURA: Bilateral pleural effusions left larger than right. CARDIOVASCULAR: No aortic atherosclerotic calcification present. OSSEOUS STRUCTURES: No significant abnormalities. VISUALIZED UPPER ABDOMEN: Normal. OTHER FINDINGS: None. IMPRESSION: Pulmonary vascular congestion/acute CHF.
--- NOTE | 2018-04-18 12:12 | CT ---
Date of service: 04/18/2018 CT chest without IV contrast Indication: pleural effusion Technique: Contiguous axial images were obtained through the chest without intravenous contrast enhancement. Sagittal and coronal reconstructions were generated and reviewed. This CT exam was performed using 1 or more of the following dose reduction techniques: Automated exposure control, adjustment of the MAA and/or kV according to patient size, and/or use of iterative reconstruction technique. Radiation dose (DLP): 342.66 MGy-cm. Comparison: Chest x-ray performed 04/18/18, CT chest without contrast performed 04/13/18 Findings: Visualized portions of the inferior thyroid gland appear unremarkable. The unenhanced mediastinal and hilar vascular structures appear grossly unremarkable. Cardiomegaly. Trace pericardial effusion. Moderate to large bilateral pleural effusions associated consolidations. Pulmonary venous congestion. No pneumothorax. Limited visualization of the noncontrast upper abdomen appears grossly unremarkable. Degenerative changes of the spine. Impression: Moderate to large bilateral pleural effusions and associated consolidations. Pulmonary venous congestion. Cardiomegaly. Trace pericardial effusion.
--- NOTE | 2018-04-18 15:18 | NM ---
Date of service: 04/18/2018 COMPARISON: April 18, 2018 TECHNIQUE: 6.9 mCi technetium 99-m Xe-133 Gas. 3.4 mCI technetium 99-m MAA administered intravenously. FINDINGS: VENTILATION COMPONENT: Heterogeneous ventilation. Findings consistent with chest x-ray. PERFUSION COMPONENT: Heterogeneous distribution of radionuclide. No geographic, segmental, lobar abnormalities apparent on the present examination. IMPRESSION: Low probability ventilation perfusion scan for pulmonary embolism.
--- NOTE | 2018-04-18 15:39 | CP.PCM.CON ---
History of Present Illness - History of Present Illness History of Present Illness: Consultation for evaluation of chest pain and new onset CHF HPI: 58-year-old female with past medical history significant for hypertension diabetes hyperlipidemia schizophrenia depression who was recently admitted to [facility] for an episode of shortness of breath was subsequently discharged home on the and now is presenting with a similar episode of pleuritic chest pain accompanied with shortness of breath ongoing for 2 weeks prior to presentation symptoms started with URI runny nose and subsequently progressively gotten worse. Of note patient was admitted on April for diverticulosis. Denies any associated cough palpitations does complain of some heaviness in her legs. Past medical history as stated above significant for schizophrenia dyslipidemia hypertension diabetes mellitus past surgical history significant for tubal ligation 25 years ago family history significant for mother had hepatocellular CA father had a back cancer sustainable C and 2 brothers have diabetes mellitus only social history denies history of smoking alcohol or illicit drug use allergies no known drug allergies Home medications include risperidone simvastatin as well as Coreg Narvox Novolin insulin Depakote Metformin and Feosol. Review of Systems - Review of Systems Systems not reviewed;Unavailable: Acuity of Condition - Constitutional Constitutional: As Per HPI - EENT Eyes: As Per HPI Ears: As Per HPI Nose/Mouth/Throat: As Per HPI - Breasts Breasts: As Per HPI - Cardiovascular Cardiovascular: As Per HPI - Respiratory Respiratory: As Per HPI - Gastrointestinal Gastrointestinal: As Per HPI - Genitourinary Genitourinary: As Per HPI - Reproductive: Female Reproductive:Female: As Per HPI - Menstruation Menstruation: As Per HPI - Musculoskeletal Musculoskeletal: As Per HPI - Integumentary Integumentary: As Per HPI - Neurological Neurological: As Per HPI - Psychiatric Psychiatric: As Per HPI - Endocrine Endocrine: As Per HPI - Hematologic/Lymphatic Hematologic: As Per HPI Past Patient History - Infectious Disease Hx of Infectious Diseases: None - Past Medical History & Family History Past Medical History?: Yes - Past Social History Smoking Status: Never Smoked - CARDIAC Hx Hypercholesterolemia: Yes Hx Hypertension: Yes - PULMONARY Hx Respiratory Disorders: No - NEUROLOGICAL Hx Neurological Disorder: Yes Other/Comment: schizophrenia - HEENT Hx HEENT Problems: No - RENAL Hx Chronic Kidney Disease: No - ENDOCRINE/METABOLIC Hx Diabetes Mellitus Type 2: Yes - HEMATOLOGICAL/ONCOLOGICAL Hx Blood Disorders: No - INTEGUMENTARY Hx Dermatological Problems: No - MUSCULOSKELETAL/RHEUMATOLOGICAL Hx Arthritis: Yes (L SH) - GASTROINTESTINAL Hx Diverticulitis: No - GENITOURINARY/GYNECOLOGICAL Hx Genitourinary Disorders: Yes Hx Urinary Tract Infection: Yes - PSYCHIATRIC Hx Depression: Yes Hx Schizophrenia: Yes Hx Substance Use: No - SURGICAL HISTORY Hx Surgeries: Yes Hx Tubal Ligation: Yes Other/Comment: ;fibroids removed - ANESTHESIA Hx Anesthesia: Yes Hx Anesthesia Reactions: No Meds Allergies/Adverse Reactions: Allergies Allergy/AdvReac Type Severity Reaction Status Date / Time No Known Allergies Allergy Verified 04/18/18 08:27 - Medications Medications: Current Medications Amlodipine Besylate (Norvasc) 5 mg PO DAILY [facility] Last Admin: 04/18/18 15:10 Dose: 5 mg Aspirin (Aspirin Chewable) 81 mg PO DAILY [facility] Divalproex Sodium (Depakote Dr) 250 mg PO BID [facility] Famotidine (Pepcid) 20 mg PO DAILY [facility] Last Admin: 04/18/18 12:55 Dose: 20 mg Ferrous Sulfate (Feosol) 325 mg PO BID [facility] Furosemide (Lasix) 40 mg IVP DAILY [facility] Heparin Sodium (Porcine) (Heparin) 5,000 units SC Q8 [facility] Last Admin: 04/18/18 15:11 Dose: 5,000 units Azithromycin 500 mg/ Sodium (Chloride) 250 mls @ 250 mls/hr IVPB DAILY@1500 [facility] LUIS; Protocol Ceftriaxone Sodium 1 gm/ (Sodium Chloride) 100 mls @ 100 mls/hr IVPB DAILY [facility]; Protocol Last Admin: 04/18/18 15:10 Dose: 100 mls/hr Insulin Human Regular (Novolin R) 15 unit SC ACB [facility] Insulin Human Regular (Novolin R) 0 unit SC ACHS [facility]; Protocol Risperidone (Risperdal Tab) 2 mg PO HS [facility] Rosuvastatin Calcium (Crestor) 2.5 mg PO HS [facility] Sertraline HCl (Zoloft) 100 mg PO HS [facility] Physical Exam - Constitutional Appears: Well - Head Exam Head Exam: ATRAUMATIC, NORMAL INSPECTION, NORMOCEPHALIC - Eye Exam Eye Exam: EOMI, Normal appearance, PERRL Pupil Exam: NORMAL ACCOMODATION, PERRL - ENT Exam ENT Exam: Mucous Membranes Moist, Normal Exam - Neck Exam Neck exam: Positive for: Normal Inspection - Respiratory Exam Respiratory Exam: Clear to Auscultation Bilateral, NORMAL BREATHING PATTERN - Cardiovascular Exam Cardiovascular Exam: REGULAR RHYTHM - GI/Abdominal Exam GI & Abdominal Exam: Normal Bowel Sounds, Soft. absent: Tenderness - Extremities Exam Extremities exam: Positive for: normal inspection - Back Exam Back exam: NORMAL INSPECTION - Neurological Exam Neurological exam: Alert, CN II-XII Intact, Normal Gait, Oriented x3, Reflexes Normal - Psychiatric Exam Psychiatric exam: Normal Affect, Normal Mood - Skin Skin Exam: Dry, Intact, Normal Color, Warm Results - Vital Signs Recent Vital Signs: Last Vital Signs Temp 98.6 F 04/18/18 06:56 Pulse 112 H 04/18/18 15:11 Resp 24 04/18/18 15:11 BP 197/95 H 04/18/18 15:11 Pulse Ox 99 04/18/18 15:11 - Labs Result Diagrams: 04/18/18 07:34 04/18/18 07:34 Labs: Laboratory Results - last 24 hr 04/18/18 04/18/18 04/18/18 07:34 07:34 07:34 WBC 4.6 L RBC 2.88 L Hgb 8.6 L Hct 25.1 L MCV 87.3 MCH 30.0 MCHC 34.3 RDW 15.2 H Plt Count 209 MPV 7.2 Neut % (Auto) 66.1 Lymph % (Auto) 22.6 Lee % (Auto) 6.0 Eos % (Auto) 4.4 H Baso % (Auto) 0.9 Neut # (Auto) 3.1 Lymph # (Auto) 1.0 Lee # (Auto) 0.3 Eos # (Auto) 0.2 Baso # (Auto) 0.0 PT 13.7 H INR 1.3 APTT 31 Sodium 134 Potassium 5.0 Chloride 105 Carbon Dioxide 19 L Anion Gap 15 BUN 33 H Creatinine 2.7 H Est GFR ( Amer) 22 Est GFR (Non-Af Amer) 18 Random Glucose 96 D Calcium 8.5 L Total Bilirubin 0.3 AST 29 ALT 21 Alkaline Phosphatase 113 Total Creatine Kinase 21 L CK-MB (Mass) 1.14 Troponin I < 0.0120 NT-Pro-B Natriuret Pep 2260 H Total Protein 8.2 Albumin 4.1 Globulin 4.1 H Albumin/Globulin Ratio 1.0 Influenza Typ A,B (EIA) 04/18/18 07:41 WBC RBC Hgb Hct MCV MCH MCHC RDW Plt Count MPV Neut % (Auto) Lymph % (Auto) Lee % (Auto) Eos % (Auto) Baso % (Auto) Neut # (Auto) Lymph # (Auto) Lee # (Auto) Eos # (Auto) Baso # (Auto) PT INR APTT Sodium Potassium Chloride Carbon Dioxide Anion Gap BUN Creatinine Est GFR ( Amer) Est GFR (Non-Af Amer) Random Glucose Calcium Total Bilirubin AST ALT Alkaline Phosphatase Total Creatine Kinase CK-MB (Mass) Troponin I NT-Pro-B Natriuret Pep Total Protein Albumin Globulin Albumin/Globulin Ratio Influenza Typ A,B (EIA) Negative for flu a/b Assessment & Plan (1) CHF (congestive heart failure) Assessment and Plan: diastolic 2' to renal insufficiency echo reviewed shows severe MR ? immune mediated pleural inflammation / small vessel vasculiits check esr/crp may need NAVARRO for further characterization of her MR Status: Acute (2) Chest pain Assessment and Plan: pleuritic check CRP/ESR Status: Acute (3) History of hypertension Assessment and Plan: on norvasc, lasix no acei 2' to renal insufficiency Status: Acute (4) Hyperlipidemia Status: Acute (5) Pleural effusion Status: Acute (6) Renal insufficiency Assessment and Plan: etiology ? vascuitis will need renal biopsy ? steroids immune workup Status: Acute
[2018-04-18] MEDS: (Novolin R) Insulin Human Regular 100 units/ml vial SC SCH (17:00)
[2018-04-18] MEDS ORDERED: (Novolin R) Insulin Human Regular 100 units/ml vial ONE (18:05)
[2018-04-18] MEDS ORDERED: Divalproex 250 mg DR Tab PO ONE (18:13)
[2018-04-18] MEDS: Divalproex 250 mg DR Tab PO SCH (18:28)
[2018-04-18] MEDS ORDERED: Azithromycin 500mg/250ML NS 500 MG/250 ML BAG IVPB ONE (18:38)
[2018-04-18] MEDS: Azithromycin 500 MG in Sodium Chloride 0.9% 250 ML IVPB SCH (18:53)
[2018-04-18] MEDS ORDERED: Rosuvastatin Calcium 2.5 mg Tab PO SCH (22:00)
[2018-04-19 01:29] VITALS: RESP 20
[2018-04-19 07:35] LABS: ALBUMIN 3.8 g/dL (3.5-5.0); BASO % 0.9 % (0.0-2.0); CALCIUM 8.6 mg/dl (8.6-10.4); EOS # 0.2 K/uL (0.0-0.7); EOS % 6.4 % (0.0-4.0); HEMOGLOBIN 8.4 g/dL (11.0-16.0); LYMPH # 0.9 K/uL (1.0-4.3); LYMPH % 22.5 % (20.0-40.0); MEAN CORPUSCULAR HEMOGLOBIN 29.7 pg (27.0-31.0); MEAN CORPUSCULAR HGB CONC 34.1 g/dL (33.0-37.0); MEAN PLATELET VOLUME 7.3 fL (7.2-11.7); MONO # 0.3 K/uL (0.0-0.8); MONO % 7.1 % (0.0-10.0); NEUT # 2.4 K/uL (1.8-7.0); NEUT % 63.1 % (50.0-75.0); RBC 2.84 Mil/uL (3.80-5.20); RED CELL DISTRIBUTION WIDTH 15.5 % (11.5-14.5); WHITE BLOOD COUNT 3.9 K/uL (4.8-10.8)
[2018-04-19] MEDS: (Novolin R) Insulin Human Regular 100 units/ml vial SC SCH ×6 (08:03→22:13)
[2018-04-19] MEDS: Divalproex 250 mg DR Tab PO SCH ×2 (09:47→18:59)
[2018-04-19] MEDS: Azithromycin 500 MG in Sodium Chloride 0.9% 250 ML IVPB SCH (14:15)
--- NOTE | 2018-04-19 14:55 | CP.PCM.CON ---
History of Present Illness - History of Present Illness History of Present Illness: HPI: Patient is a 57 year old female with past medical history of HTN, HLD, DM, schizophrenia, who presents to the clinic with complaints of diffuse abdominal pain that started 2-3 days ago. Patient reports associated symptoms of diarrhea, nausea, subjective fever. Patient denies chest pain, palpitations, SOB, dizziness, headache, blurry vision, numbness and tingling. Noted to have normal renal function 10/26; worsened in 11/26; now rising. Was recently discharged but then presents with CPs and dyspnea Recent renal US reveals echogenic kidneys PMD: Dr. Roberson Past medical history: HTN, HLD, DM, schizophrenia Past surgical history: tubal ligation, colonoscopy Medications: Depakote 250mg PO BID, Metformin 500mg BID; Sertraline 100mg HS; Risperidone 1mg HS; Losartan Potassium 100mg daily; Simvastatin 10mg HS, Ferrous sulfate 325mg PO daily, Glimepiride 4mg PO daily, Insulin 70/30 44 units SC daily with breakfast, Insulin 70/30 34 units SC daily with dinner Allergies: NKDA Family history: denies family history of cardiac disease; family history of DM (sister, brother); history of cancer (father- "back", mother- colon, sister- breast); CKD - denies Social history: denies tobacco/alcohol/drug use; 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; lives with Review of Systems - Constitutional Constitutional: Fatigue, Weakness - EENT Eyes: absent: As Per HPI, Blind Spots, Blurred Vision, Change in Vision, Decreased Night Vision, Diplopia, Discharge, Dry Eye, Exophthalmos, Floaters, Irritation, Itchy Eyes, Loss of Peripheral Vision, Pain, Photophobia, Requires Corrective Lenses, Sees Flashes, Spots in Vision, Tunnel Vision, Other Visual Disturbances, Loss of Vision, Other Ears: absent: As Per HPI, Decreased Hearing, Ear Discharge, Ear Pain, Tinnitus, Abnormal Hearing, Disequilibrium, Dizziness, Other Nose/Mouth/Throat: absent: As Per HPI, Epistaxis, Nasal Congestion, Nasal Discharge, Nasal Obstruction, Nasal Trauma, Nose Pain, Post Nasal Drip, Sinus Pain, Sinus Pressure, Bleeding Gums, Change in Voice, Dental Pain, Dry Mouth, Dysphagia, Halitosis, Hoarsness, Lip Swelling, Mouth Lesions, Mouth Pain, Odynophagia, Sore Throat, Throat Swelling, Tongue Swelling, Facial Pain, Neck Pain, Neck Mass, Other - Cardiovascular Cardiovascular: Dyspnea on Exertion, Orthopnea - Respiratory Respiratory: Cough, Dyspnea on Exertion - Gastrointestinal Gastrointestinal: absent: As Per HPI, Abdominal Pain, Belching, Bloating, Change in Bowel Habits, Change in Stool Character, Coffee Ground Emesis, Constipation, Cramping, Diarrhea, Dyspepsia, Dysphagia, Early Satiety, Excessive Flatus, Fecal Incontinence, Heartburn, Hematemesis, Hematochezia, Loose Stools, Melena, Nausea, Odynophagia, Temesmus, Vomiting, Other - Genitourinary Genitourinary: As Per HPI - Musculoskeletal Musculoskeletal: Muscle Weakness, Myalgias - Neurological Neurological: Weakness Past Patient History - Infectious Disease Hx of Infectious Diseases: None - Past Medical History & Family History Past Medical History?: Yes Past Family History: Reviewed and not pertinent - Past Social History Smoking Status: Never Smoked Chewing Tobacco Use: No Cigar Use: No Alcohol: None Drugs: Denies Home Situation {Lives}: With Family - CARDIAC Hx Hypercholesterolemia: Yes Hx Hypertension: Yes - PULMONARY Hx Respiratory Disorders: No - NEUROLOGICAL Hx Neurological Disorder: Yes Other/Comment: schizophrenia - HEENT Hx HEENT Problems: No - RENAL Hx Chronic Kidney Disease: No - ENDOCRINE/METABOLIC Hx Diabetes Mellitus Type 2: Yes - HEMATOLOGICAL/ONCOLOGICAL Hx Blood Disorders: No - INTEGUMENTARY Hx Dermatological Problems: No - MUSCULOSKELETAL/RHEUMATOLOGICAL Hx Arthritis: Yes (L SH) - GASTROINTESTINAL Hx Diverticulitis: No - GENITOURINARY/GYNECOLOGICAL Hx Genitourinary Disorders: Yes Hx Urinary Tract Infection: Yes - PSYCHIATRIC Hx Depression: Yes Hx Schizophrenia: Yes Hx Substance Use: No - SURGICAL HISTORY Hx Surgeries: Yes Hx Tubal Ligation: Yes Other/Comment: ;fibroids removed - ANESTHESIA Hx Anesthesia: Yes Hx Anesthesia Reactions: No Meds Allergies/Adverse Reactions: Allergies Allergy/AdvReac Type Severity Reaction Status Date / Time No Known Allergies Allergy Verified 04/18/18 08:27 - Medications Medications: Current Medications Amlodipine Besylate (Norvasc) 5 mg PO DAILY [facility] Last Admin: 04/19/18 09:47 Dose: 5 mg Aspirin (Aspirin Chewable) 81 mg PO DAILY [facility] Last Admin: 04/19/18 09:47 Dose: 81 mg Divalproex Sodium (Depakote Dr) 250 mg PO BID [facility] Last Admin: 04/19/18 09:47 Dose: 250 mg Famotidine (Pepcid) 20 mg PO DAILY [facility] Last Admin: 04/19/18 09:47 Dose: 20 mg Ferrous Sulfate (Feosol) 325 mg PO BID [facility] Last Admin: 04/19/18 11:00 Dose: 325 mg Furosemide (Lasix) 40 mg IVP DAILY [facility] Last Admin: 04/19/18 09:47 Dose: 40 mg Heparin Sodium (Porcine) (Heparin) 5,000 units SC Q8 [facility] Last Admin: 04/19/18 14:16 Dose: 5,000 units Hydralazine HCl (Apresoline) 25 mg PO QID [facility] Last Admin: 04/19/18 14:16 Dose: 25 mg Azithromycin 500 mg/ Sodium (Chloride) 250 mls @ 250 mls/hr IVPB DAILY@1500 [facility]; Protocol Last Admin: 04/19/18 14:15 Dose: 250 mls/hr Ceftriaxone Sodium 1 gm/ (Sodium Chloride) 100 mls @ 100 mls/hr IVPB DAILY [facility]; Protocol Last Admin: 04/19/18 09:46 Dose: 100 mls/hr Insulin Human Regular (Novolin R) 15 unit SC ACB [facility] Last Admin: 04/19/18 08:03 Dose: Not Given Insulin Human Regular (Novolin R) 0 unit SC ACHS [facility]; Protocol Last Admin: 04/19/18 12:32 Dose: 1 unit Risperidone (Risperdal Tab) 2 mg PO HS [facility] Rosuvastatin Calcium (Crestor) 2.5 mg PO HS JO[facility] LUIS Sertraline HCl (Zoloft) 100 mg PO HS [facility] Physical Exam - Constitutional Appears: No Acute Distress, Chronically Ill - Head Exam Head Exam: ATRAUMATIC, NORMAL INSPECTION - Eye Exam Eye Exam: EOMI, Normal appearance - Neck Exam Neck exam: Positive for: Normal Inspection. Negative for: Tenderness - Respiratory Exam Respiratory Exam: Clear to Auscultation Bilateral, NORMAL BREATHING PATTERN - Cardiovascular Exam Cardiovascular Exam: REGULAR RHYTHM, +S1 - GI/Abdominal Exam GI & Abdominal Exam: Soft. absent: Tenderness - Extremities Exam Extremities exam: Positive for: normal inspection. Negative for: tenderness - Neurological Exam Neurological exam: Alert, CN II-XII Intact - Skin Skin Exam: Dry, Warm Results - Vital Signs Recent Vital Signs: Last Vital Signs Temp 98.5 F 04/19/18 08:26 Pulse 97 H 04/19/18 13:11 Resp 20 04/19/18 08:26 BP 150/72 04/19/18 09:47 Pulse Ox 95 04/19/18 12:00 - Labs Result Diagrams: 04/19/18 07:09 04/19/18 07:09 Labs: Laboratory Results - last 24 hr 04/18/18 04/18/18 04/18/18 17:56 19:21 21:26 WBC RBC Hgb Hct MCV MCH MCHC RDW Plt Count MPV Neut % (Auto) Lymph % (Auto) [place] % (Auto) Eos % (Auto) Baso % (Auto) Neut # (Auto) Lymph # (Auto) [place] # (Auto) Eos # (Auto) Baso # (Auto) Sodium Potassium Chloride Carbon Dioxide Anion Gap BUN Creatinine Est GFR ( Amer) Est GFR (Non-Af Amer) POC Glucose (mg/dL) 229 H 163 H Random Glucose Calcium Total Bilirubin AST ALT Alkaline Phosphatase Troponin I < 0.0120 Total Protein Albumin Globulin Albumin/Globulin Ratio 04/19/18 04/19/18 04/19/18 06:35 07:09 07:09 WBC 3.9 L RBC 2.84 L Hgb 8.4 L Hct 24.7 L MCV 87.0 MCH 29.7 MCHC 34.1 RDW 15.5 H Plt Count 230 MPV 7.3 Neut % (Auto) 63.1 Lymph % (Auto) 22.5 [place] % (Auto) 7.1 Eos % (Auto) 6.4 H Baso % (Auto) 0.9 Neut # (Auto) 2.4 Lymph # (Auto) 0.9 L [place] # (Auto) 0.3 Eos # (Auto) 0.2 Baso # (Auto) 0.0 Sodium 134 Potassium 5.4 H Chloride 104 Carbon Dioxide 22 Anion Gap 14 BUN 32 H Creatinine 3.0 H Est GFR ( Amer) 19 Est GFR (Non-Af Amer) 16 POC Glucose (mg/dL) 103 Random Glucose 110 H Calcium 8.6 Total Bilirubin 0.3 AST 20 ALT 25 Alkaline Phosphatase 107 Troponin I Total Protein 7.8 Albumin 3.8 Globulin 4.0 H Albumin/Globulin Ratio 1.0 04/19/18 11:55 WBC RBC Hgb Hct MCV MCH MCHC RDW Plt Count MPV Neut % (Auto) Lymph % (Auto) [place] % (Auto) Eos % (Auto) Baso % (Auto) Neut # (Auto) Lymph # (Auto) [place] # (Auto) Eos # (Auto) Baso # (Auto) Sodium Potassium Chloride Carbon Dioxide Anion Gap BUN Creatinine Est GFR ( Amer) Est GFR (Non-Af Amer) POC Glucose (mg/dL) 185 H Random Glucose Calcium Total Bilirubin AST ALT Alkaline Phosphatase Troponin I Total Protein Albumin Globulin Albumin/Globulin Ratio Assessment & Plan (1) Cardiorenal syndrome Status: Acute (2) CKD stage 4 due to type 2 diabetes mellitus Status: Acute (3) CHF (congestive heart failure) Status: Acute (4) History of schizophrenia Status: Acute - Assessment and Plan (Free Text) Plan: iv lasix repeat protein excretion rate serial chemistries
[2018-04-19] MEDS ORDERED: oxyCODONE 5 mg Immediate Release Tab PO PRN (15:32)
--- NOTE | 2018-04-19 16:13 | CP.PCM.PN ---
Subjective - Date & Time of Evaluation Date of Evaluation: 04/19/18 Time of Evaluation: 16:13 - Subjective Subjective: PGY-[address] Soto Patient seen and examined at bedside. No acute events overnight. Patient not complaining of any chest pain or shortness of breath at this time, stating her symptoms have resolved. Patient denies palpitations, dizziness, dyspnea, headache, n/v/d. Objective - Vital Signs/Intake and Output Vital Signs (last 24 hours): Temp Pulse Resp BP Pulse Ox 98.7 F 105 H 20 130/74 97 04/19/18 15:27 04/19/18 15:27 04/19/18 15:27 04/19/18 15:27 04/19/18 15:27 Intake and Output: 04/19/18 04/19/18 06:59 18:59 Intake Total 650 Balance 650 - Medications Medications: Current Medications Acetaminophen (Tylenol 325mg Tab) 650 mg PO Q6 PRN PRN Reason: Pain, Mild (1-3) Amlodipine Besylate (Norvasc) 5 mg PO DAILY [facility] Last Admin: 04/19/18 09:47 Dose: 5 mg Aspirin (Aspirin Chewable) 81 mg PO DAILY [facility] Last Admin: 04/19/18 09:47 Dose: 81 mg Divalproex Sodium (Depakote Dr) 250 mg PO BID [facility] Last Admin: 04/19/18 09:47 Dose: 250 mg Famotidine (Pepcid) 20 mg PO DAILY [facility] Last Admin: 04/19/18 09:47 Dose: 20 mg Ferrous Sulfate (Feosol) 325 mg PO BID [facility] Last Admin: 04/19/18 11:00 Dose: 325 mg Furosemide (Lasix) 40 mg IVP BID [facility] Heparin Sodium (Porcine) (Heparin) 5,000 units SC Q8 [facility] Last Admin: 04/19/18 14:16 Dose: 5,000 units Hydralazine HCl (Apresoline) 25 mg PO QID [facility] Last Admin: 04/19/18 14:16 Dose: 25 mg Azithromycin 500 mg/ Sodium (Chloride) 250 mls @ 250 mls/hr IVPB DAILY@1500 [facility]; Protocol Last Admin: 04/19/18 14:15 Dose: 250 mls/hr Ceftriaxone Sodium 1 gm/ (Sodium Chloride) 100 mls @ 100 mls/hr IVPB DAILY [facility]; Protocol Last Admin: 04/19/18 09:46 Dose: 100 mls/hr Insulin Human Regular (Novolin R) 15 unit SC ACB [facility] Last Admin: 04/19/18 08:03 Dose: Not Given Insulin Human Regular (Novolin R) 0 unit SC ACHS [facility]; Protocol Last Admin: 04/19/18 12:32 Dose: 1 unit Risperidone (Risperdal Tab) 2 mg PO HS [facility] Rosuvastatin Calcium (Crestor) 2.5 mg PO HS [facility] Sertraline HCl (Zoloft) 100 mg PO HS JOSE LUIS - Labs Labs: 04/19/18 07:09 04/19/18 07:09 PT 13.7 SECONDS (9.7-12.2) H 04/18/18 07:34 INR 1.3 04/18/18 07:34 APTT 31 SECONDS (21-34) 04/18/18 07:34 - Constitutional Appears: Non-toxic, No Acute Distress - Head Exam Head Exam: ATRAUMATIC, NORMOCEPHALIC - Eye Exam Eye Exam: EOMI - ENT Exam ENT Exam: Mucous Membranes Moist - Respiratory Exam Respiratory Exam: Clear to Ausculation Bilateral, NORMAL BREATHING PATTERN. absent: Rhonchi, Wheezes - Cardiovascular Exam Cardiovascular Exam: REGULAR RHYTHM, +S1, +S2 - GI/Abdominal Exam GI & Abdominal Exam: Soft, Normal Bowel Sounds. absent: Tenderness - Extremities Exam Extremities Exam: Normal Inspection. absent: Pedal Edema, Tenderness - Neurological Exam Neurological Exam: Alert, Awake, Oriented x3 - Psychiatric Exam Psychiatric exam: Normal Affect, Normal Mood - Skin Skin Exam: Dry, Intact Assessment and Plan - Assessment and Plan (Free Text) Assessment: 58yo F with PMH DM, HTN, HLD, schizophrenia, depression who presents to ED with shortness of breath and chest pain, admitted for further evaluation and treatment of b/l pleural effusions. Plan: Chest Pain - likely secondary to pleural effusions - CKMB negative, trops negative - EKG: NSR - V/Q - Low change of PE - continue home ASA 81mg PO daily - crestor 2.5mg PO HS - ECHO (04/29): LVH, EF 55-60%, mild AR, mild pulm HTN, small pericardial effusion, moderate L pleural effusion - Cardiology consulted, Dr. Fraser - --Severe MR on echo, suspect possible autoimmune etiology of patient symptoms. F/u ESR/CRP. Pleural Effusions - CT chest: cardiomegaly. trace pericardial effusion. moderate to large b/l pleural effusions. consolidations. pulmonary venous congestion. - CXR: pulmonary vascular congestion. - pt with shortness of breath - BNP 2260, likely elevated from renal failure - given lasix 40 in ED, reports improvement - ECHO (04/29): LVH, EF 55-60%, mild AR, mild pulm HTN, small pericardial effusion, moderate L pleural effusion - lasix 40mg IVP daily - Pulm Consulted, Dr. Mcmahon - f/u recs - IR consulted, Dr. Negron - f/u recs for thoracentesis CAP - CT chest: cardiomegaly. trace pericardial effusion. moderate to large b/l pleural effusions. consolidations - afebrile, no leukocytosis - Azithromycin 500mg IV daily - Ceftriaxone 1g IV daily - f/u BCx x2 - f/u Hyperkalemia - K 5.4 - Kayexalate given once Acute on Chronic Renal Failure - BUN/Cr 33/2.7 - pt taking bactrim from d/c on prior admission - pt with peripheral edema - avoid nephrotoxic agents - Nephrology consulted, Dr. Bey Anemia - H/H 8.6/25.1 - Fe studies on previous admission showing low %sat - continue home feosol 325mg PO BID DM2 - HbA1c 5.2 - sliding scale - novolin 15u ACB - hypoglycemia protocol - accuchecks ACHS HTN - continue home norvasc 5mg PO daily - continue home coreg 3.125mg PO BID HLD - Crestor 2.5mg PO HS - lipid panel wnl on prior admission Depression, Schizophrenia - continue home meds: zoloft 100mg PO HS risperdal 2mg PO HS Depakote 250mg PO BID PPX GI: Pepcid 20 DVT: Heparin 5000u sc q8h Diabetic Diet Case reviewed with Dr. Aleisha Denney, PGY-1
--- NOTE | 2018-04-19 18:28 | CP.PCM.CON ---
<Dennys Mcmahon - Last Filed: 04/19/18 18:41> Meds Allergies/Adverse Reactions: Allergies Allergy/AdvReac Type Severity Reaction Status Date / Time No Known Allergies Allergy Verified 04/18/18 08:27 - Medications Medications: Current Medications Acetaminophen (Tylenol 325mg Tab) 650 mg PO Q6 PRN PRN Reason: Pain, Mild (1-3) Amlodipine Besylate (Norvasc) 5 mg PO DAILY [facility] Last Admin: 04/19/18 09:47 Dose: 5 mg Aspirin (Aspirin Chewable) 81 mg PO DAILY [facility] Last Admin: 04/19/18 09:47 Dose: 81 mg Divalproex Sodium (Depakote Dr) 250 mg PO BID [facility] Last Admin: 04/19/18 09:47 Dose: 250 mg Famotidine (Pepcid) 20 mg PO DAILY [facility] Last Admin: 04/19/18 09:47 Dose: 20 mg Ferrous Sulfate (Feosol) 325 mg PO BID [facility] Last Admin: 04/19/18 11:00 Dose: 325 mg Furosemide (Lasix) 40 mg IVP BID [facility] Heparin Sodium (Porcine) (Heparin) 5,000 units SC Q8 [facility] Last Admin: 04/19/18 14:16 Dose: 5,000 units Hydralazine HCl (Apresoline) 25 mg PO QID [facility] Last Admin: 04/19/18 14:16 Dose: 25 mg Azithromycin 500 mg/ Sodium (Chloride) 250 mls @ 250 mls/hr IVPB DAILY@1500 [facility]; Protocol Last Admin: 04/19/18 14:15 Dose: 250 mls/hr Ceftriaxone Sodium 1 gm/ (Sodium Chloride) 100 mls @ 100 mls/hr IVPB DAILY [facility]; Protocol Last Admin: 04/19/18 09:46 Dose: 100 mls/hr Insulin Human Regular (Novolin R) 15 unit SC ACB [facility] Last Admin: 04/19/18 08:03 Dose: Not Given Insulin Human Regular (Novolin R) 0 unit SC ACHS [facility]; Protocol Last Admin: 04/19/18 12:32 Dose: 1 unit Risperidone (Risperdal Tab) 2 mg PO HS [facility] Rosuvastatin Calcium (Crestor) 2.5 mg PO HS [facility] Sertraline HCl (Zoloft) 100 mg PO HS [facility] Results - Vital Signs Recent Vital Signs: Last Vital Signs Temp 98.7 F 01/09/19 15:27 Pulse 103 H 04/19/18 16:00 Resp 20 04/19/18 15:27 BP 130/74 04/19/18 15:27 Pulse Ox 96 04/19/18 16:00 - Labs Result Diagrams: 04/19/18 07:09 04/19/18 07:09 Labs: Laboratory Results - last 24 hr 04/18/18 04/18/18 04/19/18 19:21 21:26 06:35 WBC RBC Hgb Hct MCV MCH MCHC RDW Plt Count MPV Neut % (Auto) Lymph % (Auto) Cache % (Auto) Eos % (Auto) Baso % (Auto) Neut # (Auto) Lymph # (Auto) Cache # (Auto) Eos # (Auto) Baso # (Auto) Sodium Potassium Chloride Carbon Dioxide Anion Gap BUN Creatinine Est GFR ( Amer) Est GFR (Non-Af Amer) POC Glucose (mg/dL) 163 H 103 Random Glucose Calcium Total Bilirubin AST ALT Alkaline Phosphatase Troponin I < 0.0120 Total Protein Albumin Globulin Albumin/Globulin Ratio 04/19/18 04/19/18 04/19/18 07:09 07:09 11:55 WBC 3.9 L RBC 2.84 L Hgb 8.4 L Hct 24.7 L MCV 87.0 MCH 29.7 MCHC 34.1 RDW 15.5 H Plt Count 230 MPV 7.3 Neut % (Auto) 63.1 Lymph % (Auto) 22.5 Cache % (Auto) 7.1 Eos % (Auto) 6.4 H Baso % (Auto) 0.9 Neut # (Auto) 2.4 Lymph # (Auto) 0.9 L Cache # (Auto) 0.3 Eos # (Auto) 0.2 Baso # (Auto) 0.0 Sodium 134 Potassium 5.4 H Chloride 104 Carbon Dioxide 22 Anion Gap 14 BUN 32 H Creatinine 3.0 H Est GFR ( Amer) 19 Est GFR (Non-Af Amer) 16 POC Glucose (mg/dL) 185 H Random Glucose 110 H Calcium 8.6 Total Bilirubin 0.3 AST 20 ALT 25 Alkaline Phosphatase 107 Troponin I Total Protein 7.8 Albumin 3.8 Globulin 4.0 H Albumin/Globulin Ratio 1.0 04/19/18 16:47 WBC RBC Hgb Hct MCV MCH MCHC RDW Plt Count MPV Neut % (Auto) Lymph % (Auto) Cache % (Auto) Eos % (Auto) Baso % (Auto) Neut # (Auto) Lymph # (Auto) Cache # (Auto) Eos # (Auto) Baso # (Auto) Sodium Potassium Chloride Carbon Dioxide Anion Gap BUN Creatinine Est GFR ( Amer) Est GFR (Non-Af Amer) POC Glucose (mg/dL) 187 H Random Glucose Calcium Total Bilirubin AST ALT Alkaline Phosphatase Troponin I Total Protein Albumin Globulin Albumin/Globulin Ratio Attending/Attestation - Attestation I have personally seen and examined this patient.: Yes I have fully participated in the care of the patient.: Yes I have reviewed all pertinent clinical information: Yes Notes (Text): 04/19/18 18:40 Patient seen and examined Continue present treatment Thoracentesis by IR Bilateral pleural effusion secondary to renal insufficiency <Jam Castro - Last Filed: 04/19/18 19:03> History of Present Illness - History of Present Illness History of Present Illness: Pulmonary Consult Note for Dr. Mcmahon Reason for Donsult - Pleural effusion, known to physician Patient is a 58 year old female with a past medical history of HTN, HLD, chronic renal failure, IDDM, schizophrenia, depression, and recent hospital admission with pleural effusion presented to ED yesterday with SOB and CP. Pain was pleuritic, 4/10, and occured for last 3 days. SOB, cough, and rhinorrhea also occurred for the last 3 days. Patient also states that she has had some swelling in her legs for the past 2 weeks. Patient was afebrile, hypertensive (197/95), tachypnic (18-24), and tachycardic (112) in the ED. At time of exam patient denied fever, chills, SOB, cough, hemoptysis, CP, rhinorrhea, abdominal pain, nausea, and vomiting, and stated her leg swelling had greatly improved. No orthopnea, no dyspnea on exertion. Denied difficulty with stairs or walking multiple blocks. PMH -HTN, HLD, chronic renal failure, IDDM, schizophrenia, depression and known pleural effusion PSH - c/sec and tubal ligation 25 years ago Medications- ASA 81mg, amlodipine 10mg, losartan 100mg, simvastatin 10mg, metformin 500mg BID, zoloft, risperdone Allergies- NKDA Social - Denied smoking, drinking, and drug history. No home O2. Review of Systems - Review of Systems All systems: reviewed and no additional remarkable complaints except (as per HPI) Past Patient History - Infectious Disease Hx of Infectious Diseases: None - Past Medical History & Family History Past Medical History?: Yes Past Family History: Reviewed and not pertinent - Past Social History Smoking Status: Never Smoked Chewing Tobacco Use: No Cigar Use: No Alcohol: None Drugs: Denies Home Situation {Lives}: With Family - CARDIAC Hx Hypercholesterolemia: Yes Hx Hypertension: Yes - PULMONARY Hx Respiratory Disorders: No - NEUROLOGICAL Hx Neurological Disorder: Yes Other/Comment: schizophrenia - HEENT Hx HEENT Problems: No - RENAL Hx Chronic Kidney Disease: No - ENDOCRINE/METABOLIC Hx Diabetes Mellitus Type 2: Yes - HEMATOLOGICAL/ONCOLOGICAL Hx Blood Disorders: No - INTEGUMENTARY Hx Dermatological Problems: No - MUSCULOSKELETAL/RHEUMATOLOGICAL Hx Arthritis: Yes (L SH) - GASTROINTESTINAL Hx Diverticulitis: No - GENITOURINARY/GYNECOLOGICAL Hx Genitourinary Disorders: Yes Hx Urinary Tract Infection: Yes - PSYCHIATRIC Hx Depression: Yes Hx Schizophrenia: Yes Hx Substance Use: No - SURGICAL HISTORY Hx Surgeries: Yes Hx Tubal Ligation: Yes Other/Comment: ;fibroids removed - ANESTHESIA Hx Anesthesia: Yes Hx Anesthesia Reactions: No Meds - Medications Medications: Current Medications Acetaminophen (Tylenol 325mg Tab) 650 mg PO Q6 PRN PRN Reason: Pain, Mild (1-3) Amlodipine Besylate (Norvasc) 5 mg PO DAILY [facility] Last Admin: 04/19/18 09:47 Dose: 5 mg Aspirin (Aspirin Chewable) 81 mg PO DAILY [facility] Last Admin: 04/19/18 09:47 Dose: 81 mg Divalproex Sodium (Depakote Dr) 250 mg PO BID [facility] Last Admin: 04/19/18 09:47 Dose: 250 mg Famotidine (Pepcid) 20 mg PO DAILY [facility] Last Admin: 04/19/18 09:47 Dose: 20 mg Ferrous Sulfate (Feosol) 325 mg PO BID [facility] Last Admin: 04/19/18 11:00 Dose: 325 mg Furosemide (Lasix) 40 mg IVP BID [facility] Heparin Sodium (Porcine) (Heparin) 5,000 units SC Q8 [facility] Last Admin: 04/19/18 14:16 Dose: 5,000 units Hydralazine HCl (Apresoline) 25 mg PO QID [facility] Last Admin: 04/19/18 14:16 Dose: 25 mg Azithromycin 500 mg/ Sodium (Chloride) 250 mls @ 250 mls/hr IVPB DAILY@1500 [facility]; Protocol Last Admin: 04/19/18 14:15 Dose: 250 mls/hr Ceftriaxone Sodium 1 gm/ (Sodium Chloride) 100 mls @ 100 mls/hr IVPB DAILY [facility]; Protocol Last Admin: 04/19/18 09:46 Dose: 100 mls/hr Insulin Human Regular (Novolin R) 15 unit SC ACB [facility] Last Admin: 04/19/18 08:03 Dose: Not Given Insulin Human Regular (Novolin R) 0 unit SC ACHS [facility]; Protocol Last Admin: 04/19/18 12:32 Dose: 1 unit Risperidone (Risperdal Tab) 2 mg PO HS [facility] Rosuvastatin Calcium (Crestor) 2.5 mg PO HS [facility] Sertraline HCl (Zoloft) 100 mg PO HS [facility] Physical Exam - Constitutional Appears: Non-toxic, No Acute Distress - Head Exam Head Exam: ATRAUMATIC, NORMOCEPHALIC - Eye Exam Eye Exam: Normal appearance - ENT Exam ENT Exam: Mucous Membranes Moist - Respiratory Exam Respiratory Exam: Decreased Breath Sounds, Rales (b/l bases), NORMAL BREATHING PATTERN. absent: Accessory Muscle Use, Rhonchi, Wheezes, Respiratory Distress - Cardiovascular Exam Cardiovascular Exam: REGULAR RHYTHM, +S1, +S2 - GI/Abdominal Exam GI & Abdominal Exam: Soft. absent: Distended, Firm, Guarding, Rigid, Tenderness - Extremities Exam Extremities exam: Negative for: calf tenderness, pedal edema - Neurological Exam Neurological exam: Alert, Oriented x3 - Psychiatric Exam Psychiatric exam: Normal Affect, Normal Mood - Skin Skin Exam: Dry, Warm Results - Vital Signs Recent Vital Signs: Last Vital Signs Temp 98.7 F 04/19/18 15:27 Pulse 103 H 04/19/18 16:00 Resp 20 04/19/18 15:27 BP 130/74 04/19/18 15:27 Pulse Ox 96 04/19/18 16:00 - Labs Result Diagrams: 04/19/18 07:09 04/19/18 07:09 Labs: Laboratory Results - last 24 hr 04/18/18 04/18/18 04/19/18 19:21 21:26 06:35 WBC RBC Hgb Hct MCV MCH MCHC RDW Plt Count MPV Neut % (Auto) Lymph % (Auto) Cache % (Auto) Eos % (Auto) Baso % (Auto) Neut # (Auto) Lymph # (Auto) Cache # (Auto) Eos # (Auto) Baso # (Auto) Sodium Potassium Chloride Carbon Dioxide Anion Gap BUN Creatinine Est GFR ( Amer) Est GFR (Non-Af Amer) POC Glucose (mg/dL) 163 H 103 Random Glucose Calcium Total Bilirubin AST ALT Alkaline Phosphatase Troponin I < 0.0120 Total Protein Albumin Globulin Albumin/Globulin Ratio 04/19/18 04/19/18 04/19/18 07:09 07:09 11:55 WBC 3.9 L RBC 2.84 L Hgb 8.4 L Hct 24.7 L MCV 87.0 MCH 29.7 MCHC 34.1 RDW 15.5 H Plt Count 230 MPV 7.3 Neut % (Auto) 63.1 Lymph % (Auto) 22.5 Cache % (Auto) 7.1 Eos % (Auto) 6.4 H Baso % (Auto) 0.9 Neut # (Auto) 2.4 Lymph # (Auto) 0.9 L Cache # (Auto) 0.3 Eos # (Auto) 0.2 Baso # (Auto) 0.0 Sodium 134 Potassium 5.4 H Chloride 104 Carbon Dioxide 22 Anion Gap 14 BUN 32 H Creatinine 3.0 H Est GFR ( Amer) 19 Est GFR (Non-Af Amer) 16 POC Glucose (mg/dL) 185 H Random Glucose 110 H Calcium 8.6 Total Bilirubin 0.3 AST 20 ALT 25 Alkaline Phosphatase 107 Troponin I Total Protein 7.8 Albumin 3.8 Globulin 4.0 H Albumin/Globulin Ratio 1.0 04/19/18 16:47 WBC RBC Hgb Hct MCV MCH MCHC RDW Plt Count MPV Neut % (Auto) Lymph % (Auto) Cache % (Auto) Eos % (Auto) Baso % (Auto) Neut # (Auto) Lymph # (Auto) Cache # (Auto) Eos # (Auto) Baso # (Auto) Sodium Potassium Chloride Carbon Dioxide Anion Gap BUN Creatinine Est GFR ( Amer) Est GFR (Non-Af Amer) POC Glucose (mg/dL) 187 H Random Glucose Calcium Total Bilirubin AST ALT Alkaline Phosphatase Troponin I Total Protein Albumin Globulin Albumin/Globulin Ratio Assessment & Plan (1) Pleural effusion Assessment and Plan: b/l pleural effusion from previous admission Thoracentesis by IR Bilateral pleural effusion secondary to renal insufficiency Status: Acute (2) CHF (congestive heart failure) Status: Acute (3) CKD stage 4 due to type 2 diabetes mellitus Status: Acute
--- NOTE | 2018-04-19 19:28 | CP.PCM.PN ---
Subjective - Date & Time of Evaluation Date of Evaluation: 04/19/18 Time of Evaluation: 19:27 - Subjective Subjective: sob improving Objective - Vital Signs/Intake and Output Vital Signs (last 24 hours): Temp Pulse Resp BP Pulse Ox 98.7 F 103 H 20 134/76 96 04/19/18 15:27 04/19/18 16:00 04/19/18 15:27 04/19/18 18:59 04/19/18 16:00 Intake and Output: 04/19/18 04/20/18 18:59 06:59 Intake Total 650 Balance 650 - Medications Medications: Current Medications Acetaminophen (Tylenol 325mg Tab) 650 mg PO Q6 PRN PRN Reason: Pain, Mild (1-3) Amlodipine Besylate (Norvasc) 5 mg PO DAILY [facility] Last Admin: 04/19/18 09:47 Dose: 5 mg Aspirin (Aspirin Chewable) 81 mg PO DAILY [facility] Last Admin: 04/19/18 09:47 Dose: 81 mg Divalproex Sodium (Depakote Dr) 250 mg PO BID [facility] Last Admin: 04/19/18 18:59 Dose: 250 mg Famotidine (Pepcid) 20 mg PO DAILY [facility] Last Admin: 04/19/18 09:47 Dose: 20 mg Ferrous Sulfate (Feosol) 325 mg PO BID [facility] Last Admin: 04/19/18 18:59 Dose: 325 mg Furosemide (Lasix) 40 mg IVP BID [facility] Last Admin: 04/19/18 18:59 Dose: 40 mg Heparin Sodium (Porcine) (Heparin) 5,000 units SC Q8 [facility] Last Admin: 04/19/18 14:16 Dose: 5,000 units Hydralazine HCl (Apresoline) 25 mg PO QID [facility] Last Admin: 04/19/18 18:59 Dose: 25 mg Azithromycin 500 mg/ Sodium (Chloride) 250 mls @ 250 mls/hr IVPB DAILY@1500 [facility]; Protocol Last Admin: 04/19/18 14:15 Dose: 250 mls/hr Ceftriaxone Sodium 1 gm/ (Sodium Chloride) 100 mls @ 100 mls/hr IVPB DAILY [facility]; Protocol Last Admin: 04/19/18 09:46 Dose: 100 mls/hr Insulin Human Regular (Novolin R) 15 unit SC ACB [facility] Last Admin: 04/19/18 08:03 Dose: Not Given Insulin Human Regular (Novolin R) 0 unit SC ACHS [facility]; Protocol Last Admin: 04/19/18 17:08 Dose: 1 unit Risperidone (Risperdal Tab) 2 mg PO HS [facility] Rosuvastatin Calcium (Crestor) 2.5 mg PO HS [facility] Sertraline HCl (Zoloft) 100 mg PO HS [facility] - Labs Labs: 04/19/18 07:09 04/19/18 07:09 PT 13.7 SECONDS (9.7-12.2) H 04/18/18 07:34 INR 1.3 04/18/18 07:34 APTT 31 SECONDS (21-34) 04/18/18 07:34 - Constitutional Appears: Well - Head Exam Head Exam: ATRAUMATIC, NORMAL INSPECTION, NORMOCEPHALIC - Eye Exam Eye Exam: EOMI, Normal appearance, PERRL Pupil Exam: NORMAL ACCOMODATION, PERRL - ENT Exam ENT Exam: Mucous Membranes Moist, Normal Exam - Neck Exam Neck Exam: Full ROM, Normal Inspection. absent: Lymphadenopathy - Respiratory Exam Respiratory Exam: Clear to Ausculation Bilateral, Rales, NORMAL BREATHING PATTERN - Cardiovascular Exam Cardiovascular Exam: REGULAR RHYTHM, +S1, +S2, Murmur - GI/Abdominal Exam GI & Abdominal Exam: Soft, Normal Bowel Sounds. absent: Tenderness - Extremities Exam Extremities Exam: Full ROM, Normal Capillary Refill, Normal Inspection. absent: Joint Swelling, Pedal Edema - Back Exam Back Exam: NORMAL INSPECTION - Neurological Exam Neurological Exam: Alert, Awake, CN II-XII Intact, Normal Gait, Oriented x3 - Psychiatric Exam Psychiatric exam: Normal Affect, Normal Mood - Skin Skin Exam: Dry, Intact, Normal Color, Warm Assessment and Plan (1) CHF (congestive heart failure) Status: Acute (2) Chest pain Status: Acute (3) History of hypertension Status: Acute (4) Hyperlipidemia Status: Acute (5) Pleural effusion Status: Acute (6) Renal insufficiency Status: Acute
--- NOTE | 2018-04-20 07:19 | CP.PCM.PN ---
Objective - Vital Signs/Intake and Output Vital Signs (last 24 hours): Temp Pulse Resp BP Pulse Ox 98.3 F 85 20 154/88 H 96 04/19/18 23:30 04/20/18 03:49 04/19/18 23:30 04/19/18 23:30 04/19/18 23:30 - Medications Medications: Current Medications Acetaminophen (Tylenol 325mg Tab) 650 mg PO Q6 PRN PRN Reason: Pain, Mild (1-3) Amlodipine Besylate (Norvasc) 5 mg PO DAILY [facility] Last Admin: 04/19/18 09:47 Dose: 5 mg Aspirin (Aspirin Chewable) 81 mg PO DAILY [facility] Last Admin: 04/19/18 09:47 Dose: 81 mg Divalproex Sodium (Depakote Dr) 250 mg PO BID [facility] Last Admin: 04/19/18 18:59 Dose: 250 mg Famotidine (Pepcid) 20 mg PO DAILY [facility] Last Admin: 04/19/18 09:47 Dose: 20 mg Ferrous Sulfate (Feosol) 325 mg PO BID [facility] Last Admin: 04/19/18 18:59 Dose: 325 mg Furosemide (Lasix) 40 mg IVP BID [facility] Last Admin: 04/19/18 18:59 Dose: 40 mg Heparin Sodium (Porcine) (Heparin) 5,000 units SC Q8 [facility] Last Admin: 04/20/18 05:50 Dose: 5,000 units Hydralazine HCl (Apresoline) 25 mg PO QID [facility] Last Admin: 04/19/18 22:49 Dose: 25 mg Azithromycin 500 mg/ Sodium (Chloride) 250 mls @ 250 mls/hr IVPB DAILY@1500 [facility]; Protocol Last Admin: 04/19/18 14:15 Dose: 250 mls/hr Ceftriaxone Sodium 1 gm/ (Sodium Chloride) 100 mls @ 100 mls/hr IVPB DAILY [facility]; Protocol Last Admin: 04/19/18 09:46 Dose: 100 mls/hr Insulin Human Regular (Novolin R) 15 unit SC ACB [facility] Last Admin: 04/19/18 08:03 Dose: Not Given Insulin Human Regular (Novolin R) 0 unit SC ACHS [facility]; Protocol Last Admin: 04/19/18 22:13 Dose: Not Given Risperidone (Risperdal Tab) 2 mg PO HS [facility] Last Admin: 04/19/18 22:49 Dose: 2 mg Rosuvastatin Calcium (Crestor) 2.5 mg PO HS [facility] Last Admin: 04/19/18 22:49 Dose: 2.5 mg Sertraline HCl (Zoloft) 100 mg PO HS [facility] Last Admin: 04/19/18 22:49 Dose: 100 mg - Labs Labs: 04/19/18 07:09 04/19/18 07:09 PT 13.7 SECONDS (9.7-12.2) H 04/18/18 07:34 INR 1.3 04/18/18 07:34 APTT 31 SECONDS (21-34) 04/18/18 07:34 Assessment and Plan - Assessment and Plan (Free Text) Assessment: Diastolic CHF 2/2 Acute on Chronic Renal Failure, with Pleural Effusion Severe Mitral Regurgitation
[2018-04-20] MEDS: (Novolin R) Insulin Human Regular 100 units/ml vial SC SCH ×3 (07:23→14:01)
[2018-04-20 07:45] LABS: HEMOGLOBIN 8.3 g/dL (11.0-16.0); MEAN CELL VOLUME 86.6 fL (81.0-99.0); MEAN CORPUSCULAR HEMOGLOBIN 29.5 pg (27.0-31.0); MEAN CORPUSCULAR HGB CONC 34.1 g/dL (33.0-37.0); MEAN PLATELET VOLUME 7.4 fL (7.2-11.7); RBC 2.8 Mil/uL (3.80-5.20); RED CELL DISTRIBUTION WIDTH 14.9 % (11.5-14.5); WHITE BLOOD COUNT 3.4 K/uL (4.8-10.8)
[2018-04-20 08:32] LABS: ALB/GLOB RATIO 0.9 (1.0-2.1); ALBUMIN 3.8 g/dL (3.5-5.0); CALCIUM 8.6 mg/dl (8.6-10.4)
[2018-04-20] MEDS: Divalproex 250 mg DR Tab PO SCH (10:08)
--- NOTE | 2018-04-20 10:08 | CP.PCM.PN ---
Subjective - Date & Time of Evaluation Date of Evaluation: 04/20/18 Time of Evaluation: 10:06 - Subjective Subjective: feels same creat increased again protein excretion rate being done has normal size, echogenic kidneys Still anemic, Fe stores low Objective - Vital Signs/Intake and Output Vital Signs (last 24 hours): Temp Pulse Resp BP Pulse Ox 98.2 F 89 20 159/82 H 98 04/20/18 07:00 04/20/18 07:23 04/20/18 07:00 04/20/18 07:00 04/20/18 07:00 - Medications Medications: Current Medications Acetaminophen (Tylenol 325mg Tab) 650 mg PO Q6 PRN PRN Reason: Pain, Mild (1-3) Amlodipine Besylate (Norvasc) 5 mg PO DAILY [facility] Last Admin: 04/19/18 09:47 Dose: 5 mg Aspirin (Aspirin Chewable) 81 mg PO DAILY [facility] Last Admin: 04/19/18 09:47 Dose: 81 mg Divalproex Sodium (Depakote Dr) 250 mg PO BID [facility] Last Admin: 04/19/18 18:59 Dose: 250 mg Famotidine (Pepcid) 20 mg PO DAILY [facility] Last Admin: 04/19/18 09:47 Dose: 20 mg Ferrous Sulfate (Feosol) 325 mg PO BID [facility] Last Admin: 04/19/18 18:59 Dose: 325 mg Furosemide (Lasix) 40 mg IVP BID [facility] Last Admin: 04/19/18 18:59 Dose: 40 mg Heparin Sodium (Porcine) (Heparin) 5,000 units SC Q8 [facility] Last Admin: 04/20/18 05:50 Dose: 5,000 units Hydralazine HCl (Apresoline) 25 mg PO QID [facility] Last Admin: 04/19/18 22:49 Dose: 25 mg Azithromycin 500 mg/ Sodium (Chloride) 250 mls @ 250 mls/hr IVPB DAILY@1500 [facility]; Protocol Last Admin: 04/19/18 14:15 Dose: 250 mls/hr Ceftriaxone Sodium 1 gm/ (Sodium Chloride) 100 mls @ 100 mls/hr IVPB DAILY [facility]; Protocol Last Admin: 04/19/18 09:46 Dose: 100 mls/hr Insulin Human Regular (Novolin R) 15 unit SC ACB [facility] Last Admin: 04/20/18 07:23 Dose: Not Given Insulin Human Regular (Novolin R) 0 unit SC ACHS [facility]; Protocol Last Admin: 04/20/18 07:23 Dose: Not Given Risperidone (Risperdal Tab) 2 mg PO [facility] Last Admin: 04/19/18 22:49 Dose: 2 mg Rosuvastatin Calcium (Crestor) 2.5 mg PO [facility] Last Admin: 04/19/18 22:49 Dose: 2.5 mg Sertraline HCl (Zoloft) 100 mg PO [facility] Last Admin: 04/19/18 22:49 Dose: 100 mg - Labs Labs: 04/20/18 07:21 04/20/18 07:21 PT 13.7 SECONDS (9.7-12.2) H 04/18/18 07:34 INR 1.3 04/18/18 07:34 APTT 31 SECONDS (21-34) 04/18/18 07:34 - Constitutional Appears: No Acute Distress, Chronically Ill - Head Exam Head Exam: ATRAUMATIC, NORMAL INSPECTION - Eye Exam Eye Exam: EOMI, Normal appearance - Neck Exam Neck Exam: Normal Inspection. absent: Tenderness - Respiratory Exam Respiratory Exam: Clear to Ausculation Bilateral, NORMAL BREATHING PATTERN - Cardiovascular Exam Cardiovascular Exam: REGULAR RHYTHM, +S1 - GI/Abdominal Exam GI & Abdominal Exam: Soft. absent: Tenderness - Extremities Exam Extremities Exam: Normal Inspection. absent: Tenderness - Neurological Exam Neurological Exam: Alert, CN II-XII Intact - Psychiatric Exam Psychiatric exam: Normal Affect - Skin Skin Exam: Dry, Warm Assessment and Plan (1) Cardiorenal syndrome Status: Acute (2) CKD stage 4 due to type 2 diabetes mellitus Status: Acute (3) CHF (congestive heart failure) Status: Acute (4) History of schizophrenia Status: Acute - Assessment and Plan (Free Text) Plan: tx CHF repeat chemistries check proteinuria can consider renal bx if renal function worse
[2018-04-20] MEDS ORDERED: Ferric Sodium Gluconat Complex 62.5 mg/5 ml Vial IVPB SCH (10:15)
[2018-04-20] MEDS ORDERED: Ferric Sodium Gluconat Complex 125 MG in Sodium Chloride 0.9% 100 ML IVPB SCH (11:00)
[2018-04-20] MEDS ORDERED: Lidocaine Hydrochloride 10 ML INJ ONE (11:51)
--- NOTE | 2018-04-20 12:06 | PCM.SURG1 ---
Surgeon's Initial Post Op Note - Surgeon's Notes Surgeon: Nawaf Negron MD [employer] Chief: NONE Type of Anesthesia: Local Pre-Operative Diagnosis: Bilateral pleural effusion Operative Findings: US showed small left and small right effusion; left > right Post-Operative Diagnosis: Bilateral pleural effusion Operation Performed: US guided left thoracentesis Specimen/Specimens Removed: 500 cc of straw colored fluid Estimated Blood Loss: EBL {In ML}: 0 Blood Products Given: N/A Drains Used: No Drains Post-Op Condition: Fair Date of Surgery/Procedure: 04/20/18 Time of Surgery/Procedure: 12:00
--- NOTE | 2018-04-20 13:28 | VASCLAB ---
Date of service: 04/18/2018 PROCEDURE: Lower Extremity Venous Duplex Exam. HISTORY: pt with shortness of breath PRIORS: None. TECHNIQUE: Bilateral common femoral, femoral, popliteal and posterior tibial, peroneal and great saphenous veins were evaluated. Flow was assessed with color Doppler, compressibility, assessment of phasic flow and augmentation response. Report prepared by Vin Garrett, HETAL, RVT FINDINGS: RIGHT: 1. Common Femoral Vein: 1.1. Compressibility - Fully compressible: Thrombus - None : Flow - Phasic: Augmentation -Normal: Reflux - None. 2. Femoral Vein: 2.1. Compressibility - Fully compressible: Thrombus - None : Flow - Phasic: Augmentation -Normal: Reflux - None. 3. Popliteal Vein: 3.1. Compressibility - Fully compressible: Thrombus - None : Flow - Phasic: Augmentation -Normal: Reflux - None. 4. Posterior Tibial Vein: 4.1. Compressibility - Fully compressible: Thrombus - None: Flow - Phasic: Augmentation -Normal: Reflux - None. 5. Peroneal Vein: 5.1. Compressibility - Fully compressible: Thrombus - None: Flow - Phasic: Augmentation -Normal: Reflux - None. 6. Great Saphenous Vein: 6.1. Compressibility - Fully compressible: Thrombus - None: Flow - Phasic: Augmentation - Normal: Reflux - None. LEFT: 1. Common Femoral Vein: 1.1. Compressibility - Fully compressible: Thrombus - None: Flow - Phasic: Augmentation -Normal: Reflux - None. 2. Femoral Vein: 2.1. Compressibility - Fully compressible: Thrombus - None: Flow - Phasic: Augmentation -Normal: Reflux - None. 3. Popliteal Vein: 3.1. Compressibility - Fully compressible: Thrombus - None : Flow - Phasic: Augmentation -Normal: Reflux - None. 4. Posterior Tibial Vein: 4.1. Compressibility - Fully compressible: Thrombus - None: Flow - Phasic: Augmentation -Normal: Reflux - None. 5. Peroneal Vein: 5.1. Compressibility - Fully compressible: Thrombus - None: Flow - Phasic: Augmentation -Normal: Reflux - None. 6. Great Saphenous Vein: 6.1. Compressibility - Fully compressible: Thrombus - None: Flow - Phasic: Augmentation - Normal: Reflux - None. OTHER FINDINGS: Right: None significant. Left: None significant. IMPRESSION: Right: No evidence of deep or superficial vein thrombosis of the right lower extremity. Normal valve function noted of the right side. Left: No evidence of deep or superficial vein thrombosis of the left lower extremity. Normal valve function noted of the left side.
--- NOTE | 2018-04-20 14:09 | US ---
PROCEDURE: Date of procedure: 04/20/2018 Procedure: 1. Ultrasound-guided left thoracentesis, CPT 23058 Medications: 6cc 1% Lidocaine HISTORY: Left pleural effusion, shortness of breath TECHNIQUE: Following informed consent ,the Patients' left chest was marked. Procedure time-out was called, and the patient was placed in the sitting position and limited ultrasound showed a small left effusion. The patient's left back was prepped and draped in the usual sterile fashion. After the skin was anesthetized with lidocaine, a drainage catheter was advanced under ultrasound guidance into the pleural space. Ultrasound-guided thoracentesis was performed. A total of 500 cubic centimeters of straw-colored fluid removed without complication. A Xeroform dressing was applied. US also showed a small right pleural effusion. IMPRESSION: Ultrasound guided left thoracentesis. There were no immediate complications.
[2018-04-20] MEDS: Azithromycin 500 MG in Sodium Chloride 0.9% 250 ML IVPB SCH (14:32)
[2018-04-20 14:55] LABS: BODY FLUID TYPE PLEURAL/THORACENTESI
--- NOTE | 2018-04-20 15:01 | CP.PCM.DIS ---
Provider - Provider Date of Admission: 04/18/18 10:03 Attending physician: Kenny Soto MD Consults: 04/18/18 13:33 Nephrology Consult Routine Comment: Consulting Provider: Evan Bey Consulting Physician: Evan Bey Reason for Consult: pt with renal failure, known to you Physician Consult Routine Comment: Consulting Provider: Nawaf Negron Consulting Physician: Nawaf Negron Reason for Consult: pt with b/l pleural effusions please eval for t horacentesis Pulmonology Consult Routine Comment: Consulting Provider: Dennys Mcmahon Consulting Physician: Dennys Mcmahon Reason for Consult: pt with b/l pleural effusions, known to you 04/18/18 13:37 Cardiology Consult Routine Comment: Consulting Provider: Julian Fraser Consulting Physician: Julian Fraser Reason for Consult: pt with chest pain, CT w/ pericardial effusion Time Spent in preparation of Discharge (in minutes): 45 Diagnosis - Discharge Diagnosis (1) Pleural effusion Status: Acute (2) TRISTON (acute kidney injury) Status: Acute (3) Congestive heart failure Status: Acute (4) Mitral regurgitation Status: Acute Hospital Course - Lab Results Lab Results: Most Recent Lab Values WBC 3.4 K/uL (4.8-10.8) L 04/20/18 07:21 RBC 2.80 Mil/uL (3.80-5.20) L 04/20/18 07:21 Hgb 8.3 g/dL (11.0-16.0) L 04/20/18 07:21 Hct 24.3 % (34.0-47.0) L 04/20/18 07:21 MCV 86.6 fL (81.0-99.0) 04/20/18 07:21 MCH 29.5 pg (27.0-31.0) 04/20/18 07:21 MCHC 34.1 g/dL (33.0-37.0) 04/20/18 07:21 RDW 14.9 % (11.5-14.5) H 04/20/18 07:21 Plt Count 214 K/uL (130-400) 04/20/18 07:21 MPV 7.4 fL (7.2-11.7) 04/20/18 07:21 Neut % (Auto) 63.1 % (50.0-75.0) 04/19/18 07:09 Lymph % (Auto) 22.5 % (20.0-40.0) 04/19/18 07:09 [place] % (Auto) 7.1 % (0.0-10.0) 04/19/18 07:09 Eos % (Auto) 6.4 % (0.0-4.0) H 04/19/18 07:09 Baso % (Auto) 0.9 % (0.0-2.0) 04/19/18 07:09 Neut # (Auto) 2.4 K/uL (1.8-7.0) 04/19/18 07:09 Lymph # (Auto) 0.9 K/uL (1.0-4.3) L 04/19/18 07:09 [place] # (Auto) 0.3 K/uL (0.0-0.8) 04/19/18 07:09 Eos # (Auto) 0.2 K/uL (0.0-0.7) 04/19/18 07:09 Baso # (Auto) 0.0 K/uL (0.0-0.2) 04/19/18 07:09 ESR 128 mm/hr (0-20) H 04/20/18 07:21 PT 13.7 SECONDS (9.7-12.2) H 04/18/18 07:34 INR 1.3 04/18/18 07:34 APTT 31 SECONDS (21-34) 04/18/18 07:34 Sodium 134 mmol/L (132-148) 04/20/18 07:21 Potassium 4.9 mmol/L (3.6-5.2) 04/20/18 07:21 Chloride 100 mmol/L (98-107) 04/20/18 07:21 Carbon Dioxide 27 mmol/L (22-30) 04/20/18 07:21 Anion Gap 12 (10-20) 04/20/18 07:21 BUN 39 mg/dL (7-17) H 04/20/18 07:21 Creatinine 3.3 mg/dL (0.7-1.2) H 04/20/18 07:21 Est GFR ( Amer) 17 04/20/18 07:21 Est GFR (Non-Af Amer) 14 04/20/18 07:21 POC Glucose (mg/dL) 105 mg/dL (65-110) 04/20/18 06:35 Random Glucose 114 mg/dL (65-105) H 04/20/18 07:21 Calcium 8.6 mg/dl (8.6-10.4) 04/20/18 07:21 Phosphorus 6.2 mg/dL (2.5-4.5) H 04/20/18 07:21 Magnesium 2.1 mg/dL (1.6-2.3) 04/20/18 07:21 % Saturation 15 (20-55) L 04/20/18 07:21 Ferritin 123.0 ng/mL 04/20/18 07:21 Total Bilirubin 0.4 mg/dL (0.2-1.3) 04/20/18 07:21 AST 21 U/L (14-36) 04/20/18 07:21 ALT 20 U/L (9-52) 04/20/18 07:21 Alkaline Phosphatase 98 U/L (38-126) 04/20/18 07:21 Total Creatine Kinase 21 U/L (30-135) L 04/18/18 07:34 CK-MB (Mass) 1.14 ng/mL (0.0-3.38) 04/18/18 07:34 Troponin I < 0.0120 ng/mL (0.00-0.120) 04/18/18 19:21 C-Reactive Protein 7.80 mg/L (0.0-9.9) 04/20/18 07:21 NT-Pro-B Natriuret Pep 2260 pg/mL (0-900) H 04/18/18 07:34 Total Protein 7.8 g/dL (6.3-8.3) 04/20/18 07:21 Albumin 3.8 g/dL (3.5-5.0) 04/20/18 07:21 Globulin 4.0 gm/dL (2.2-3.9) H 04/20/18 07:21 Albumin/Globulin Ratio 0.9 (1.0-2.1) L 04/20/18 07:21 Fluid Source Pleural/thoracentesi 04/20/18 14:51 Influenza Typ A,B (EIA) Negative for flu a/b (NEGATIVE) 04/18/18 07:41 - Hospital Course Hospital Course: HPI: Pt is a 58yo F with PMH DM, HTN, HLD, schizophrenia, depression who presents to ED with shortness of breath and chest pain. Pt reports chest pain associated with shortness of breath for the past week, describing it as intermittent, pressure-like, and rating it 4/10. She says it is worse with deep breaths, coughing, and walking. Pt denies previous history of this symptom. She reports associated palpitations and dry cough. She also complains of some swelling in the legs which is new to her. She denies dizziness, radiation of the pain, sweating, or nausea. Pt has been drinking tea at home with mild relief. Of note, pt was recently admitted to [facility] (04/2018) for diverticulosis. Pt denies any weight loss, fever, chills, abdominal pain, nausea, vomiting, diarrhea, dysuria. Hospitalization: Patient was hospitalized with chest pain, which was suspected due to pleural effusions after EKG/trops negative, VQ negative, and patient found to be in acute on chronic renal failure. Cardio, pulm, nephro were consulted. Patient was diuresed with lasix and given breathing treatments. Shortness of breath improved over course of hospitalization. Regarding consult recommendations, per cardio, Dr. Fraser suggested to order ESR/CRP for potential autoimmune cause. He recommended possible NAVARRO for evaluation of severe MR. IR was consulted and performed thoracentesis of pleural fluid, pleural fluid studies pending. Nephrology saw patient and per nephro, patient may require HD in the future, and will need to follow up. Upon discharge, shortness of breath and chest pain had improved and patient was not complaining of any symptoms Imaging: - ECHO (04/29): LVH, EF 55-60%, mild AR, mild pulm HTN, small pericardial effusion, moderate L pleural effusion - CT chest 04/18: cardiomegaly. trace pericardial effusion. moderate to large b/l pleural effusions. consolidations. pulmonary venous congestion. - CXR 04/18: pulmonary vascular congestion. -V/Q Scan 04/18 - Low suspicion for PE Discharge Exam - Head Exam Head Exam: ATRAUMATIC, NORMAL INSPECTION - Eye Exam Eye Exam: EOMI, Normal appearance - Respiratory Exam Respiratory Exam: Clear to PA & Lateral, UNREMARKABLE. absent: Rhonchi, Wheezes - Cardiovascular Exam Cardiovascular Exam: REGULAR RHYTHM, +S1, +S2 - GI/Abdominal Exam GI & Abdominal Exam: Normal Bowel Sounds, Soft. absent: Tenderness - Extremities Exam Extremities exam: normal inspection - Neurological Exam Neurological exam: Alert, CN II-XII Intact, Oriented x3 - Psychiatric Exam Psychiatric exam: Normal Affect, Normal Mood - Skin Skin Exam: Dry, Intact Discharge Plan - Discharge Medications Prescriptions: amLODIPine [Norvasc] 5 mg PO DAILY #30 tab Carvedilol [Coreg] 3.125 mg PO DAILY #30 tab Divalproex Sodium 250 mg PO BID #60 tablet. Ferrous Sulfate [Feosol] 325 mg PO BID #60 tab Furosemide [Lasix] 40 mg PO DAILY #30 tab - Follow Up Plan Condition: GOOD Disposition: HOME/ ROUTINE Instructions: Heart Healthy Diet, Diabetes Exchange Diet, Heart Failure, Adult (DC), Diabetes Diet , Pleural Effusion (DC), Thoracentesis (DC) Additional Instructions: Patient is cleared for discharge per Dr. Soto Please continue to take all meds at prescribed. Prescriptions for some of your medications have been provided. Aspirin 81 mg one tab by mouth daily Depakote 500 mcg one tab by mouth daily Zoloft 100 mg one tab by mouth before bed Simvastatin 10 mg by mouth before bed Norvasc 5 mg one tab by mouth daily Metformin 500 mg one tab by mouth twice a day Losartan 100 mg one tab by mouth daily Risperdal 2mg one tab by mouth at bedtime Fesol 325 mg one tab by mouth twice a day Coreg 3.125 mg one tab by mouth daily Lasix 40 mg one tab by mouth daily Please follow up in the clinic within 7 days. Referals will be provided to see the following specialists. Please make sure to follow with your integrity manager, Dr. Fraser. Please make sure to follow up with Pulmonology, Dr. Mcmahon. Please make sure to follow with your integrity manager, Dr. Fraser. Please make sure to follow up with your psychiatrist who you follow with as outpatient. Please return to ER if symptoms recur or worsen. Referrals: [facility] at [facility] [Outside] Dennys Mcmahon MD [Staff Provider] - Julian Fraser MD [Staff Provider] -
[2018-04-20 15:49] VITALS: BP 137/78; TEMP 97.8; O2SAT 100
[2018-04-20 15:59] LABS: BF GROSS APPEARANCE SL CLOUDY (CLEAR)
[2018-04-20 16:01] LABS: BODY FLUID TOTAL COUNT 100 (0-0)
--- NOTE | 2018-04-20 18:00 | CP.PCM.PN ---
Subjective - Date & Time of Evaluation Date of Evaluation: 04/20/18 Time of Evaluation: 11:00 - Subjective Subjective: Patient was seen and examined at bedside today. She states she slept well overnight. She does not have any shortness of breath overnight. She denies chest pain, fevers, n/v. Physical Exam Gen: No acute Distress, AAOx3 Cardio: RRR, no rubs, murmurs, or gallops Pulm: CTA b/L, no wheezing, rales or rhonci A and P 1. Pleural Effusion - Continue to monitor Patients vitals Thoracentesis performed 04/20 - 500 cc of straw colored fluid removed 2. CHF 3. CKD Stage 4 due to Type 2 diabetes mellitus - continue lasiks - consult nephrology for CKD management Objective - Vital Signs/Intake and Output Vital Signs (last 24 hours): Temp Pulse Resp BP Pulse Ox 97.8 F 96 H 20 137/78 100 04/20/18 15:00 04/20/18 15:00 04/20/18 15:00 04/20/18 15:00 04/20/18 15:00 Intake and Output: 04/20/18 04/20/18 06:59 18:59 Intake Total 650 Balance 650 - Labs Labs: 04/20/18 07:21 04/20/18 07:21 PT 13.7 SECONDS (9.7-12.2) H 04/18/18 07:34 INR 1.3 04/18/18 07:34 APTT 31 SECONDS (21-34) 04/18/18 07:34
[2018-04-20 19:44] VITALS: PULSE 88
== END 2018-04-20 17:20 | disposition home or self-care (01) ==
LOC: C.ER 06:45 → C.9E 10:03 → C.6T 22:58
PROVIDERS: ADMIT Internal Medicine; ATTEND Internal Medicine
DX: J90 Pleural effusion, not elsewhere classified (principal); I13.0 Hypertensive heart and chronic kidney disease with heart failure and stage 1 through stage 4 chronic kidney disease, or unspecified chronic kidney disease; I27.20 Pulmonary hypertension, unspecified; I31.3 Pericardial effusion (noninflammatory); D64.9 Anemia, unspecified; E11.22 Type 2 diabetes mellitus with diabetic chronic kidney disease; N18.4 Chronic kidney disease, stage 4 (severe); E78.00 Pure hypercholesterolemia, unspecified; E78.5 Hyperlipidemia, unspecified; F20.9 Schizophrenia, unspecified; I34.0 Nonrheumatic mitral (valve) insufficiency; I50.9 Heart failure, unspecified; K57.90 Diverticulosis of intestine, part unspecified, without perforation or abscess without bleeding; N17.9 Acute kidney failure, unspecified; Z79.4 Long term (current) use of insulin; Z80.0 Family history of malignant neoplasm of digestive organs; Z80.3 Family history of malignant neoplasm of breast; Z83.3 Family history of diabetes mellitus; Z87.440 Personal history of urinary (tract) infections
CPT/HCPCS: 32555; 36415; 71045; 71250; 78582; 80053; 82550; 82553; 82728; 82945; 82948; 83615; 83735; 83880; 83970; 83986; 84100; 84156; 84157; 84484; 85025; 85027; 85610; 85651; 85730; 86140; 87070; 87075; 87101; 87804; 89051; 93005; 93970; 96365; 96372; 96374; 99285; A9540; A9558; G0378; J0456; J0696; J1644; J1940; J2916; J7050

== ENCOUNTER 2018-05-10 16:23 | Outpatient (CLI) | payer SELFPAY | END 2018-05-10 16:24 | disposition home or self-care (01) | LOC: C.RADH 16:23 ==

== ENCOUNTER 2018-05-20 11:59 | Emergency (ER) | payer SELFPAY ==
[2018-05-20 12:00] VITALS: BMI 26.5
[2018-05-20 13:44] LABS: BASO % 0.7 % (0.0-2.0); EOS # 0.2 K/uL (0.0-0.7); EOS % 3.4 % (0.0-4.0); HEMOGLOBIN 10.1 g/dL (11.0-16.0); LYMPH % 21.6 % (20.0-40.0); MEAN CORPUSCULAR HEMOGLOBIN 29.9 pg (27.0-31.0); MONO # 0.2 K/uL (0.0-0.8); MONO % 4.9 % (0.0-10.0); NEUT # 3.3 K/uL (1.8-7.0); NEUT % 69.4 % (50.0-75.0); RBC 3.37 Mil/uL (3.80-5.20); RED CELL DISTRIBUTION WIDTH 13.2 % (11.5-14.5); WHITE BLOOD COUNT 4.7 K/uL (4.8-10.8)
[2018-05-20 13:51] LABS: SQUAMOUS EPITHIAL 1 /hpf (0-5); URINE BACTERIA RARE (<OCC); URINE BILIRUBIN NEGATIVE (NEGATIVE); URINE BLOOD 1+ (NEGATIVE); URINE CLARITY Clear (Clear); URINE COLOR Straw (YELLOW); URINE GLUCOSE (UA) 1+ mg/dL (Normal); URINE LEUKOCYTE ESTERASE 2+ Leu/uL (Negative); URINE PROTEIN 2+ mg/dL (NEGATIVE); URINE UROBILINOGEN NORMAL mg/dL (0.2-1.0)
[2018-05-20 14:07] LABS: ALBUMIN 4.4 g/dL (3.5-5.0); CALCIUM 9.4 mg/dl (8.6-10.4)
[2018-05-20 15:05] VITALS: RESP 19; O2SAT 100
--- NOTE | 2018-05-20 15:53 | US ---
Date of service: 05/20/2018 HISTORY: RUQ pain, r/o primitivo COMPARISON: None. TECHNIQUE: Sonographic evaluation of the right upper quadrant of the abdomen. FINDINGS: LIVER: Measures 14.1 cm in length. Normal echogenicity of the liver parenchyma. No mass. No intrahepatic bile duct dilatation. GALLBLADDER: Unremarkable. No gallstones. COMMON BILE DUCT: Measures 3.0 mm. No stones. No dilatation. PANCREAS: Unremarkable as visualized. No mass. No ductal dilatation. RIGHT KIDNEY: Measures 9.6 cm in length. Renal parenchyma is mildly inhomogeneous and may reflect intrinsic medical renal disease or possible nephritis of indeterminate etiology. No obstructive uropathy, solid mass, cysts or perinephric fluid collection. AORTA: No aneurysmal dilatation. IVC: Unremarkable. OTHER FINDINGS: None . IMPRESSION: Potential intrinsic medical renal disease or nephritis of indeterminate origin. No obstructive uropathy right kidney. Liver, gallbladder and biliary tree unremarkable.
--- NOTE | 2018-05-20 16:08 | C.PDOC ---
History Of Present Illness 58 year old female presents to the emergency department with complaints of RUQ and right flank pain for one week. Patient denies vomiting, nausea, and fever. Patient states that the pain is dull and intermittent. Patient has a history of renal insufficiency, secondary to diabetes. Time Seen by Provider: 05/20/18 12:32 Chief Complaint (Nursing): Abdominal Pain History Per: Patient History/Exam Limitations: no limitations Onset/Duration Of Symptoms: Other (one week) Current Symptoms Are (Timing): Still Present Location Of Pain/Discomfort: RUQ, Other (right flank) Quality Of Discomfort: Dull, "Pain" Associated Symptoms: denies: Fever, Chills, Nausea, Vomiting Past Medical History Reviewed: Historical Data, Nursing Documentation, Vital Signs Vital Signs: Last Vital Signs Temp 98.3 F 05/20/18 12:04 Pulse 80 05/20/18 15:04 Resp 19 05/20/18 15:04 BP 183/80 H 05/20/18 15:04 Pulse Ox 100 05/20/18 15:04 - Medical History PMH: Arthritis (L SH), Depression, Diabetes, HTN, Hypercholesterolemia, Hyperlipidemia, Schizophrenia Denies: Diverticulitis, Chronic Kidney Disease Surgical History: - [facility] Procedures OTHER SKIN & SUBQ I D (07/30/13) Family History: States: Unknown Family Hx - Social History Hx Tobacco Use: No Hx Alcohol Use: No Hx Substance Use: No - Immunization History Hx Tetanus Toxoid Vaccination: Yes Hx Influenza Vaccination: Yes Hx Pneumococcal Vaccination: Yes Review Of Systems Except As Marked, All Systems Reviewed And Found Negative. Constitutional: Negative for: Fever, Chills Gastrointestinal: Positive for: Abdominal Pain. Negative for: Nausea, Vomiting, Diarrhea Physical Exam - Physical Exam Appears: Non-toxic, No Acute Distress Skin: Normal Color, Warm, Dry Head: Atraumatic, Normacephalic Eye(s): bilateral: Normal Inspection, PERRL, EOMI Nose: Normal Oral Mucosa: Moist Neck: Normal, Supple Chest: Symmetrical, No Tenderness Cardiovascular: Rhythm Regular, No Murmur Respiratory: Normal Breath Sounds, No Rales, No Rhonchi, No Wheezing Gastrointestinal/Abdominal: Soft, Tenderness (Diffuse RUQ tenderness), No Guarding, No Rebound Extremity: Normal ROM Neurological/Psych: Oriented x3, Normal Speech, Normal Cognition ED Course And Treatment - Laboratory Results Result Diagrams: 05/20/18 13:29 05/20/18 13:29 Lab Results: Total Bilirubin 0.4 mg/dL (0.2-1.3) 05/20/18 13:29 AST 22 U/L (14-36) 05/20/18 13:29 ALT 10 U/L (9-52) 05/20/18 13:29 Alkaline Phosphatase 90 U/L (38-126) 05/20/18 13:29 Total Protein 8.7 g/dL (6.3-8.3) H 05/20/18 13:29 Albumin 4.4 g/dL (3.5-5.0) 05/20/18 13:29 Globulin 4.3 gm/dL (2.2-3.9) H 05/20/18 13:29 Albumin/Globulin Ratio 1.0 (1.0-2.1) 05/20/18 13:29 Lipase 146 U/L (23-300) 05/20/18 13:29 Urine Color Straw (YELLOW) 05/20/18 13:29 Urine Clarity Clear (Clear) 05/20/18 13:29 Urine pH 6.0 (5.0-8.0) 05/20/18 13:29 Ur Specific [place] 1.011 (1.003-1.030) 05/20/18 13:29 Urine Protein 2+ mg/dL (NEGATIVE) H 05/20/18 13:29 Urine Glucose (UA) 1+ mg/dL (Normal) 05/20/18 13:29 Urine Ketones Negative mg/dL (NEGATIVE) 05/20/18 13:29 Urine Blood 1+ (NEGATIVE) H 05/20/18 13:29 Urine Nitrate Negative (NEGATIVE) 05/20/18 13:29 Urine Bilirubin Negative (NEGATIVE) 05/20/18 13:29 Urine Urobilinogen Normal mg/dL (0.2-1.0) 05/20/18 13:29 Ur Leukocyte Esterase 2+ Juan Jose/uL (Negative) H 05/20/18 13:29 Urine WBC (Auto) 37 /hpf (0-5) H 05/20/18 13:29 Urine RBC (Auto) 9 /hpf (0-3) H 05/20/18 13:29 Ur Squamous Epith Cells 1 /hpf (0-5) 05/20/18 13:29 Urine Bacteria Rare (<OCC) 05/20/18 13:29 O2 Sat by Pulse Oximetry: 100 (RA) Pulse Ox Interpretation: Normal - CT Scan/US US Abdomen Other Rad Studies (CT/US): Read By Radiologist, Radiology Report Reviewed CT/US Interpretation: IMPRESSION: Potential intrinsic medical renal disease or nephritis of indeterminate origin. No obstructive uropathy right kidney. Liver, gallbladder and biliary tree unremarkable. Medical Decision Making Medical Decision Making: Plan: Chemistry Bloodwork Catapres 0.1mg PO Urine Culture Urinalysis US Abdomen Patient is cleared for discharge home, will f/u with nephrology. Disposition Counseled Patient/Family Regarding: Studies Performed, Diagnosis, Need For Followup - Disposition Referrals: Isis Roberson MD [Staff Provider] - Disposition: HOME/ ROUTINE Disposition Time: 16:05 Condition: STABLE Instructions: Chronic Kidney Disease, High Blood Pressure Emergencies Forms: [facility] (Bhutanese), Gen Discharge Inst Frisian - Clinical Impression Clinical Impression: Renal insufficiency, Hypertension, Flank pain - Scribe Statement The provider has reviewed the documentation as recorded by the Scribe (Deandre Han) Provider Attestation: All medical record entries made by the Scribe were at my direction and personally dictated by me. I have reviewed the chart and agree that the record accurately reflects my personal performance of the history, physical exam, medical decision making, and the department course for this patient. I have also personally directed, reviewed, and agree with the discharge instructions and disposition.
[2018-05-20 16:26] VITALS: BP 190/90; PULSE 88; TEMP 98.2
== END 2018-05-20 16:27 | disposition home or self-care (01) ==
LOC: C.ER 11:59
DX: N28.9 Disorder of kidney and ureter, unspecified (principal); I10 Essential (primary) hypertension; R10.11 Right upper quadrant pain

== ENCOUNTER 2018-05-22 11:48 | Emergency (ER) | payer SELFPAY ==
[2018-05-22 12:14] VITALS: O2SAT 100
[2018-05-22 12:25] VITALS: BMI 27.1
[2018-05-22] MEDS ORDERED: Sodium Chloride 0.9% 1,000 ML IV ONE (13:30)
[2018-05-22 13:51] LABS: BASO % 0.5 % (0.0-2.0); EOS # 0.1 K/uL (0.0-0.7); EOS % 2.3 % (0.0-4.0); HEMOGLOBIN 11.2 g/dL (11.0-16.0); LYMPH % 21.3 % (20.0-40.0); MEAN CELL VOLUME 87.2 fL (81.0-99.0); MEAN CORPUSCULAR HEMOGLOBIN 30.7 pg (27.0-31.0); MEAN CORPUSCULAR HGB CONC 35.2 g/dL (33.0-37.0); MEAN PLATELET VOLUME 7.9 fL (7.2-11.7); MONO # 0.2 K/uL (0.0-0.8); MONO % 4.6 % (0.0-10.0); NEUT # 3.5 K/uL (1.8-7.0); NEUT % 71.3 % (50.0-75.0); RBC 3.65 Mil/uL (3.80-5.20); RED CELL DISTRIBUTION WIDTH 13.2 % (11.5-14.5); WHITE BLOOD COUNT 4.9 K/uL (4.8-10.8)
[2018-05-22 13:57] LABS: SQUAMOUS EPITHIAL < 1 /hpf (0-5); URINE BACTERIA OCC (<OCC); URINE BILIRUBIN NEGATIVE (NEGATIVE); URINE BLOOD 1+ (NEGATIVE); URINE CLARITY Hazy (Clear); URINE COLOR Colorless (YELLOW); URINE GLUCOSE (UA) NORMAL (Normal); URINE LEUKOCYTE ESTERASE 3+ Leu/uL (Negative); URINE PROTEIN 2+ mg/dL (NEGATIVE); URINE UROBILINOGEN NORMAL mg/dL (0.2-1.0)
[2018-05-22 14:12] LABS: ALBUMIN 4.6 g/dL (3.5-5.0); ALT/SGPT < 6 U/L (9-52); AST/SGOT 23 U/L (14-36); BLOOD UREA NITROGEN 53 mg/dL (7-17); CALCIUM 9.4 mg/dl (8.6-10.4); GFR NON-AFRICAN AMERICAN 18; LIPASE 191 U/L (23-300)
--- NOTE | 2018-05-22 14:32 | C.PDOC ---
History Of Present Illness 58 year old female presents to ED with complaints of abdominal pain in the right flank of the epigastric region. Patient states that the pain is constant, but worsens right before she vomits. She has a history of hypertension. Patient does not recall what medication she is taking and has no allergies. Patient denies diarrhea, constipation, chest pain, SOB, palpitations, fever, and dysuria. Time Seen by Provider: 05/22/18 13:24 Chief Complaint (Nursing): Back Pain History Per: Patient History/Exam Limitations: no limitations Onset/Duration Of Symptoms: Days (7), Persistent Current Symptoms Are (Timing): Still Present Quality Of Discomfort: "Pain" Exacerbating Factor(s): Other (pain prior to vomiting). denies: Movement Past Medical History Reviewed: Historical Data, Nursing Documentation, Vital Signs Vital Signs: Last Vital Signs Temp 98.6 F 05/22/18 12:12 Pulse 83 05/22/18 12:12 Resp 18 05/22/18 12:12 BP 170/72 H 05/22/18 12:12 Pulse Ox 100 05/22/18 12:12 - Medical History PMH: Arthritis (L SH), Depression, Diabetes, HTN, Hypercholesterolemia, Hyperlipidemia, Schizophrenia Denies: Diverticulitis, Chronic Kidney Disease Surgical History: - [facility] Procedures OTHER SKIN & SUBQ I D (07/30/13) Family History: States: Unknown Family Hx - Social History Hx Tobacco Use: No Hx Alcohol Use: No Hx Substance Use: No - Immunization History Hx Tetanus Toxoid Vaccination: Yes Hx Influenza Vaccination: Yes Hx Pneumococcal Vaccination: Yes Review Of Systems Constitutional: Negative for: Fever, Chills, Weakness Cardiovascular: Negative for: Chest Pain, Palpitations Respiratory: Negative for: Cough, Shortness of Breath Gastrointestinal: Positive for: Vomiting, Abdominal Pain (right flank of the epigastric region). Negative for: Diarrhea, Constipation Genitourinary: Negative for: Dysuria, Hematuria Neurological: Negative for: Weakness, Numbness, Dizziness Physical Exam - Physical Exam Appears: Well, Non-toxic, No Acute Distress Skin: Normal Color, Warm, Dry Head: Atraumatic, Normacephalic Neck: Normal ROM, Supple Chest: Symmetrical, No Deformity Cardiovascular: Rhythm Regular, No Murmur Respiratory: No Accessory Muscle Use, No Rales, No Rhonchi, No Wheezing Gastrointestinal/Abdominal: Tenderness (mild tenderness of RUQ of epigastric region) Back: No CVA Tenderness Extremity: Capillary Refill (< 2 seconds) Extremity: Bilateral: Atraumatic, Normal Color And Temperature Pulses: Left Radial: Normal (strong pulses), Right Radial: Normal Neurological/Psych: Oriented x3, Normal Speech, Normal Cognition ED Course And Treatment - Laboratory Results Result Diagrams: 05/22/18 13:47 05/22/18 13:47 Lab Results: Total Bilirubin 0.4 mg/dL (0.2-1.3) 05/22/18 13:47 AST 23 U/L (14-36) 05/22/18 13:47 ALT < 6 U/L (9-52) L D 05/22/18 13:47 Alkaline Phosphatase 99 U/L (38-126) 05/22/18 13:47 Total Protein 9.3 g/dL (6.3-8.3) H 05/22/18 13:47 Albumin 4.6 g/dL (3.5-5.0) 05/22/18 13:47 Globulin 4.7 gm/dL (2.2-3.9) H 05/22/18 13:47 Albumin/Globulin Ratio 1.0 (1.0-2.1) 05/22/18 13:47 Lipase 191 U/L (23-300) 05/22/18 13:47 Urine Color Colorless (YELLOW) 05/22/18 13:47 Urine Clarity Hazy (Clear) 05/22/18 13:47 Urine pH 6.0 (5.0-8.0) 05/22/18 13:47 Ur Specific [place] 1.010 (1.003-1.030) 05/22/18 13:47 Urine Protein 2+ mg/dL (NEGATIVE) H 05/22/18 13:47 Urine Glucose (UA) Normal mg/dL (Normal) 05/22/18 13:47 Urine Ketones Negative mg/dL (NEGATIVE) 05/22/18 13:47 Urine Blood 1+ (NEGATIVE) H 05/22/18 13:47 Urine Nitrate Negative (NEGATIVE) 05/22/18 13:47 Urine Bilirubin Negative (NEGATIVE) 05/22/18 13:47 Urine Urobilinogen Normal mg/dL (0.2-1.0) 02/11/19 13:47 Ur Leukocyte Esterase 3+ Juan Jose/uL (Negative) H 05/22/18 13:47 Urine WBC (Auto) < 1 /hpf (0-5) 05/22/18 13:47 Ur Squamous Epith Cells < 1 /hpf (0-5) 05/22/18 13:47 Urine Bacteria Occ (<OCC) H 05/22/18 13:47 O2 Sat by Pulse Oximetry: 100 (RA) Progress Note: Labs ordered with UA for patient. Patient given morphine IVP, NaCl IV, Tylenol PO, and Zofran IVP. Disposition Counseled Patient/Family Regarding: Diagnosis, Need For Followup, Rx Given - Disposition Referrals: [facility] at [facility] [Outside] Disposition: HOME/ ROUTINE Disposition Time: 16:00 Condition: STABLE Additional Instructions: FOLLOW UP WITH DR REYES IN THE OFFICE WITHIN 1 WEEK USE MEDICATIONS DIRECTED/NEEDED DRINK PLENTY OF WATER RETURN TO EMERGENCY ROOM IF SYMPTOMS WORSEN SEGUIRSE CON EL DR REYES EN LA OFICINA DENTRO DE 1 SEMANA UTILICE MEDICAMENTOS SEGN DIRIGIDO / NECESARIO BEBER ABUNDANTE AGUA VUELVA A LA YEVGENIY DE EMERGENCIA SI LOS SNTOMAS SE SPENCE PROBLEMAS Prescriptions: Ciprofloxacin [Cipro] 1 tab PO BID #14 tab traMADol [Ultram] 50 mg PO BID PRN #15 tab PRN Reason: pain Instructions: Urinary Tract Infection, Adult (DC) Forms: [facility] (Kinyarwanda) Print Language: CITIZEN OF [place] - Clinical Impression Clinical Impression: UTI (urinary tract infection), Renal insufficiency - Scribe Statement The provider has reviewed the documentation as recorded by the Scribe (Dayanna London) All medical record entries made by the Scribe were at my direction and personally dictated by me. I have reviewed the chart and agree that the record accurately reflects my personal performance of the history, physical exam, medi kurt decision making, and the department course for this patient. I have also personally directed, reviewed, and agree with the discharge instructions and disposition.
[2018-05-22 14:45] VITALS: TEMP 98.5
[2018-05-22 16:06] VITALS: BP 169/69; PULSE 77; RESP 20
== END 2018-05-22 16:20 | disposition home or self-care (01) ==
LOC: C.ER 11:48
DX: N39.0 Urinary tract infection, site not specified (principal); N28.9 Disorder of kidney and ureter, unspecified
CPT/HCPCS: 80053; 81001; 83690; 85025; 87086; 96361; 96374; 96375; 99285; J2270; J2405; J7030

== ENCOUNTER 2018-05-28 23:14 | Emergency (ER) | payer SELFPAY ==
[2018-05-28 23:15] VITALS: BMI 27.1
[2018-05-29] MEDS ORDERED: Morphine 4 MG/ML VIAL IV ONE (00:14)
--- NOTE | 2018-05-29 00:29 | C.PDOC ---
History Of Present Illness Patient reports two week history of right flank and RUQ/epigastric pain. States that she has been seen here recently for similar symptoms, and that she was told she had "kidney inflammation". Previous records indicate that she had labs and RUQ u/s done during prior visits, was diagnosed with UTI and given abx which patient states did not help. Patient denies fever, nausea, vomiting, diarrhea. States that she has some mild dysuria. No hematuria. <Reena Pham - Last Filed: 05/29/18 00:25> History Per: Patient <JazzminemoniquevivienneReena nolan - Last Filed: 05/29/18 00:25> <Florencia Willis - Last Filed: 05/29/18 02:17> Time Seen by Provider: 05/28/18 23:33 Chief Complaint (Nursing): Abdominal Pain Past Medical History Reviewed: Historical Data, Nursing Documentation, Vital Signs Vital Signs: Last Vital Signs Temp 99 F 05/28/18 23:22 Pulse 92 H 05/28/18 23:22 Resp 20 05/28/18 23:22 BP 194/92 H 05/28/18 23:22 Pulse Ox 100 05/28/18 23:22 - Medical History PMH: Arthritis (L SH), Depression, Diabetes, HTN, Hypercholesterolemia, Hyperlipidemia, Chronic Kidney Disease, Schizophrenia Denies: Diverticulitis Surgical History: - [facility] Procedures OTHER SKIN & SUBQ I D (07/30/13) Family History: States: Unknown Family Hx - Social History Hx Tobacco Use: No Hx Alcohol Use: No Hx Substance Use: No - Immunization History Hx Tetanus Toxoid Vaccination: Yes Hx Influenza Vaccination: Yes Hx Pneumococcal Vaccination: Yes <JazzminemoniquevivienneReena nolan - Last Filed: 05/29/18 00:25> Vital Signs: Last Vital Signs Temp 99 F 05/28/18 23:22 Pulse 92 H 05/28/18 23:22 Resp 20 05/28/18 23:22 BP 194/92 H 05/28/18 23:22 Pulse Ox 100 05/29/18 00:36 - [facility] Procedures OTHER SKIN & SUBQ I D (07/30/13) <Florencia Willis - Last Filed: 05/29/18 02:17> Review Of Systems Except As Marked, All Systems Reviewed And Found Negative. Constitutional: Negative for: Fever, Chills Cardiovascular: Negative for: Chest Pain Respiratory: Negative for: Cough, Shortness of Breath Gastrointestinal: Positive for: Abdominal Pain. Negative for: Nausea, Vomiting, Diarrhea Genitourinary: Positive for: Dysuria. Negative for: Hematuria Skin: Negative for: Rash Neurological: Negative for: Altered Mental Status <Reena Pham - Last Filed: 05/29/18 00:25> Physical Exam - Physical Exam Appears: Well, Non-toxic, No Acute Distress Skin: Normal Color, Warm, Dry Head: Atraumatic Eye(s): bilateral: Normal Inspection Oral Mucosa: Moist Cardiovascular: Rhythm Regular Respiratory: Normal Breath Sounds Gastrointestinal/Abdominal: Normal Exam Extremity: No Deformity Neurological/Psych: Oriented x3, Normal Speech <Reena Phma Last Filed: 05/29/18 00:25> ED Course And Treatment O2 Sat by Pulse Oximetry: 100 <Reena Pham [facility] Filed: 05/29/18 00:25> - Laboratory Results Result Diagrams: 05/29/18 01:34 Lab Results: Urine Color Yellow (YELLOW) 05/29/18 01:34 Urine Clarity Hazy (Clear) 05/29/18 01:34 Urine pH 6.0 (5.0-8.0) 05/29/18 01:34 Ur Specific [place] 1.012 (1.003-1.030) 05/29/18 01:34 Urine Protein 2+ mg/dL (NEGATIVE) H 05/29/18 01:34 Urine Glucose (UA) Normal mg/dL (Normal) 05/29/18 01:34 Urine Ketones Negative mg/dL (NEGATIVE) 05/29/18 01:34 Urine Blood 1+ (NEGATIVE) H 05/29/18 01:34 Urine Nitrate Negative (NEGATIVE) 05/29/18 01:34 Urine Bilirubin Negative (NEGATIVE) 05/29/18 01:34 Urine Urobilinogen Normal mg/dL (0.2-1.0) 05/29/18 01:34 Ur Leukocyte Esterase 3+ Juan Jose/uL (Negative) H 05/29/18 01:34 Urine WBC (Auto) 191 /hpf (0-5) H 05/29/18 01:34 Urine RBC (Auto) 16 /hpf (0-3) H 05/29/18 01:34 Ur Squamous Epith Cells 1 /hpf (0-5) 05/29/18 01:34 Urine Bacteria Mod (<OCC) H 05/29/18 01:34 <Florencia Willis - Last Filed: 05/29/18 02:17> Progress - Re-Evaluation Re-evaluation Note: 05/29/18 02:15 UCX 05/22/18 +E COLI. PT DC W CIPRO FROM PRIOR ER EVAL BUT C&S RESISTANT. - Data Reviewed Data Reviewed: Lab, Old records <Florencia Willis - Last Filed: 05/29/18 02:17> Disposition <JazzminemoniqueelsaReena - Last Filed: 05/29/18 00:25> Counseled Patient/Family Regarding: Studies Performed, Diagnosis, Need For Followup, Rx Given - Disposition Disposition Time: 02:16 <Florencia Willis - Last Filed: 05/29/18 02:17> - Disposition Referrals: [employer] [employer] [Outside] [facility] [Outside] Disposition: HOME/ ROUTINE Condition: IMPROVED Prescriptions: Ibuprofen [Motrin] 600 mg PO Q6 #30 tab Nitrofurantoin Macrocrystals [Macrobid] 1 cap PO BID #14 cap Phenazopyridine HCl [Pyridium] 200 mg PO BID #6 tablet Instructions: Urinary Tract Infection, Adult (DC) Forms: [employer] (Belarusian) Print Language: BOLIVIAN - Clinical Impression Clinical Impression: UTI (urinary tract infection)
[2018-05-29] MEDS ORDERED: Morphine 4 MG/ML VIAL ONE (01:31)
[2018-05-29 01:56] LABS: BASO % 0.4 % (0.0-2.0); EOS # 0.1 K/uL (0.0-0.7); EOS % 2.6 % (0.0-4.0); HEMOGLOBIN 10.2 g/dL (11.0-16.0); LYMPH # 1.2 K/uL (1.0-4.3); LYMPH % 23.1 % (20.0-40.0); MEAN CELL VOLUME 87.8 fL (81.0-99.0); MEAN CORPUSCULAR HEMOGLOBIN 28.9 pg (27.0-31.0); MEAN PLATELET VOLUME 7.3 fL (7.2-11.7); MONO # 0.3 K/uL (0.0-0.8); MONO % 6.5 % (0.0-10.0); NEUT # 3.6 K/uL (1.8-7.0); NEUT % 67.4 % (50.0-75.0); RBC 3.54 Mil/uL (3.80-5.20); RED CELL DISTRIBUTION WIDTH 13.6 % (11.5-14.5); WHITE BLOOD COUNT 5.3 K/uL (4.8-10.8)
[2018-05-29 02:09] LABS: SQUAMOUS EPITHIAL 1 /hpf (0-5); URINE BACTERIA MOD (<OCC); URINE BILIRUBIN NEGATIVE (NEGATIVE); URINE BLOOD 1+ (NEGATIVE); URINE CLARITY Hazy (Clear); URINE COLOR Yellow (YELLOW); URINE GLUCOSE (UA) NORMAL (Normal); URINE LEUKOCYTE ESTERASE 3+ Leu/uL (Negative); URINE PROTEIN 2+ mg/dL (NEGATIVE); URINE UROBILINOGEN NORMAL mg/dL (0.2-1.0)
[2018-05-29 02:19] LABS: ALBUMIN 4.3 g/dL (3.5-5.0)
[2018-05-29 05:25] VITALS: BP 152/74; PULSE 74; RESP 22; TEMP 98.1; O2SAT 96
== END 2018-05-29 05:20 | disposition home or self-care (01) ==
LOC: C.ER 23:14
DX: N39.0 Urinary tract infection, site not specified (principal)
CPT/HCPCS: 80053; 81001; 85025; 96365; 96375; 99285; J0696; J1885; J2270

== ENCOUNTER 2018-06-09 15:54 | Inpatient (IN) | payer MEDICAID, SELFPAY ==
[2018-06-09 15:55] VITALS: BMI 27.1
--- NOTE | 2018-06-09 16:19 | C.PDOC ---
Time Seen by Provider: 06/09/18 16:13 Chief Complaint (Nursing): Back Pain Past Medical History Vital Signs: Last Vital Signs Temp 98.3 F 06/09/18 15:58 Pulse 89 06/09/18 15:58 Resp 20 06/09/18 15:58 BP 195/82 H 06/09/18 15:58 Pulse Ox 100 06/09/18 15:58 - Medical History PMH: Arthritis (L SH), Depression, Diabetes, HTN, Hypercholesterolemia, Hyperlipidemia, Chronic Kidney Disease, Schizophrenia Denies: Diverticulitis Surgical History: - [facility] Procedures OTHER SKIN & SUBQ I D (07/30/13) Family History: States: Unknown Family Hx - Social History Hx Tobacco Use: No Hx Alcohol Use: No Hx Substance Use: No - Immunization History Hx Tetanus Toxoid Vaccination: Yes Hx Influenza Vaccination: Yes Hx Pneumococcal Vaccination: Yes ED Course And Treatment O2 Sat by Pulse Oximetry: 100 Disposition - Disposition
--- NOTE | 2018-06-09 17:33 | C.PDOC ---
History Of Present Illness Patient is a 58 year old female, with a PMHx of diabetes, HTN, and renal insufficiency secondary to diabetes, who presents to the ED c/o bilateral shoulder upper back pain for the past week. Patient states that her pain is worse on the right side and is now radiating to the front chest. SHe also reports feeling SOB with exertion and is concerned that she may have fluid in lungs. She admits to not taking her blood pressure medications today. Patient denies any fever, cough, dizziness, or weakness. <HoSheyla L - Last Filed: 06/09/18 18:59> History Per: Patient History/Exam Limitations: no limitations Onset/Duration Of Symptoms: Days (1 week) Current Symptoms Are (Timing): Still Present Recent travel outside of the [place]: No Additional History Per: Patient <TeagueElSheyla L - Last Filed: 06/09/18 18:59> <Nawaf Madrigal - Last Filed: 06/09/18 21:14> Time Seen by Provider: 06/09/18 16:13 Chief Complaint (Nursing): Back Pain Past Medical History Reviewed: Historical Data, Nursing Documentation, Vital Signs Vital Signs: Last Vital Signs Temp 98.7 F 06/09/18 17:14 Pulse 82 06/09/18 17:14 Resp 20 06/09/18 17:14 BP 191/103 H 06/09/18 17:14 Pulse Ox 100 06/09/18 17:15 - Medical History PMH: Arthritis (L SH), Depression, Diabetes, HTN, Hypercholesterolemia, Hyperlipidemia, Chronic Kidney Disease, Schizophrenia Denies: Diverticulitis Surgical History: - [facility] Procedures OTHER SKIN & SUBQ I D (07/30/13) Family History: States: Unknown Family Hx - Social History Hx Tobacco Use: No Hx Alcohol Use: No Hx Substance Use: No - Immunization History Hx Tetanus Toxoid Vaccination: Yes Hx Influenza Vaccination: Yes Hx Pneumococcal Vaccination: Yes <HoSheyla L - Last Filed: 06/09/18 18:59> Vital Signs: Last Vital Signs Temp 98.7 F 06/09/18 17:14 Pulse 69 06/09/18 18:44 Resp 14 06/09/18 18:44 BP 172/75 H 06/09/18 18:44 Pulse Ox 100 06/09/18 19:00 - [facility] Procedures OTHER SKIN & SUBQ I D (07/30/13) <Nawaf Madrigal - Last Filed: 06/09/18 21:14> Review Of Systems Constitutional: Negative for: Fever, Weakness Respiratory: Positive for: Shortness of Breath (with exertion ). Negative for: Cough Musculoskeletal: Positive for: Back Pain (bilateral shoulder upper back pain radiating to front chest ) Neurological: Negative for: Dizziness <TeagueElSheyla L - Last Filed: 06/09/18 18:59> Physical Exam - Physical Exam Appears: Well, Non-toxic, No Acute Distress Skin: Warm, Dry, No Pale, No Rash Head: Atraumatic, Normacephalic Eye(s): bilateral: Normal Inspection, EOMI Oral Mucosa: Moist Neck: Normal ROM Chest: Symmetrical, No Tenderness Cardiovascular: Rhythm Regular, No Murmur Respiratory: Decreased Breath Sounds (at bases), No Rales, No Stridor, No Wheezing, No Plerual Rub Gastrointestinal/Abdominal: Soft (parathoracic muscle tenderness ), No Tenderness Back: Paraspinal Tenderness Extremity: Normal ROM, No Pedal Edema Neurological/Psych: Oriented x3, Normal Speech Gait: Steady <Sheyla Teague - Last Filed: 06/09/18 18:59> ED Course And Treatment - Laboratory Results Result Diagrams: 06/09/18 17:52 06/09/18 17:52 Lab Interpretation: Abnormal ECG: Interpreted By Me, Viewed By Me ECG Rhythm: Sinus Rhythm ECG Interpretation: No Acute Changes Rate From EC O2 Sat by Pulse Oximetry: 100 (on RA) Pulse Ox Interpretation: Normal - Radiology CXR: Interpreted by Me, Viewed By Me, Read By Radiologist CXR Interpretation: Yes: Other (Small right pleural effusion. Mild right basilar atelectasis. Left basilar atelectasis/infiltrate. ) <TeagueSheyla Last Filed: 06/09/18 18:59> - Laboratory Results Result Diagrams: 06/09/18 17:52 06/09/18 17:52 Lab Results: PT 13.1 SECONDS (9.7-12.2) H 06/09/18 17:52 INR 1.2 06/09/18 17:52 APTT 29 SECONDS (21-34) 06/09/18 17:52 Troponin I 0.0130 ng/mL (0.00-0.120) 06/09/18 17:52 NT-Pro-B Natriuret Pep 5240 pg/mL (0-900) H 06/09/18 17:52 Total Bilirubin 0.4 mg/dL (0.2-1.3) 06/09/18 17:52 AST 31 U/L (14-36) 06/09/18 17:52 ALT 18 U/L (9-52) 06/09/18 17:52 Alkaline Phosphatase 86 U/L (38-126) 06/09/18 17:52 Total Protein 9.0 g/dL (6.3-8.3) H 06/09/18 17:52 Albumin 4.7 g/dL (3.5-5.0) 06/09/18 17:52 Globulin 4.3 gm/dL (2.2-3.9) H 06/09/18 17:52 Albumin/Globulin Ratio 1.1 (1.0-2.1) 06/09/18 17:52 Urine Color Straw (YELLOW) 06/09/18 18:34 Urine Clarity Clear (Clear) 06/09/18 18:34 Urine pH 6.0 (5.0-8.0) 06/09/18 18:34 Ur Specific [place] 1.006 (1.003-1.030) 06/09/18 18:34 Urine Protein 2+ mg/dL (NEGATIVE) H 06/09/18 18:34 Urine Glucose (UA) Normal mg/dL (Normal) 06/09/18 18:34 Urine Ketones Negative mg/dL (NEGATIVE) 06/09/18 18:34 Urine Blood 1+ (NEGATIVE) H 06/09/18 18:34 Urine Nitrate Negative (NEGATIVE) 06/09/18 18:34 Urine Bilirubin Negative (NEGATIVE) 06/09/18 18:34 Urine Urobilinogen Normal mg/dL (0.2-1.0) 06/09/18 18:34 Ur Leukocyte Esterase 1+ Juan Jose/uL (Negative) H 06/09/18 18:34 Urine WBC (Auto) 10 /hpf (0-5) H 06/09/18 18:34 Urine RBC (Auto) 6 /hpf (0-3) H 06/09/18 18:34 Ur Squamous Epith Cells 2 /hpf (0-5) 06/09/18 18:34 Urine Bacteria Occ (<OCC) H 06/09/18 18:34 - Other Rad CXR X-Ray: Viewed By Me, Read By Radiologist Interpretation: IMPRESSION: Cardiomegaly. Small right pleural effusion. Mild right basilar atelectasis. Left basilar atelectasis/infiltrate. <Nawaf Madrigal - Last Filed: 06/09/18 21:14> Medical Decision Making Medical Decision Making: Impression: HTN, Dyspnea Plan: --EKG --Labs --CXR --Urinalysis --Coreg 6.25mg --Lasix 40mg IVP progress: Labs reviewed CBC wNL. CMP shows borderline elevated potassium, Renal insufficiency unchanged from prior visit. neg troponin. BNP elevated >5000. CXR viewed by me and read by radiologist Dr Matthew, shows Small right pleural effusion. Mild right basilar atelectasis. Left basilar atelectasis/infiltrate. No visible pneumothorax. Blood pressure improved mildly with antihypertensives. Patient remained in no respiratory distress. Discussed results and plan for obs admission. 1821 Page hospitalist for admission 1840 second page hospitalist 1900 case signed out to Dr Madrigal pending callback from hospitalist for admission Dx Pleural effusion, Renal insufficiency, HTN <Sheyla Teague - Last Filed: 06/09/18 18:59> Disposition Counseled Patient/Family Regarding: Diagnosis - Disposition Disposition Time: 18:59 - POA Present On Arrival: None <Sheyla Teague - Last Filed: 06/09/18 18:59> <Nawaf Madrigal - Last Filed: 06/09/18 21:14> - Disposition Disposition: HOSPITALIZED Condition: STABLE - Clinical Impression Clinical Impression: Pleural effusion, HTN (hypertension), Renal insufficiency - PA / FLOW NURSE / Resident Statement MD/DO has examined the patient and agrees with the treatment plan. - Scribe Statement The provider has reviewed the documentation as recorded by the Chloé Urban All medical record entries made by the Scribe were at my direction and personally dictated by me. I have reviewed the chart and agree that the record accurately reflects my personal performance of the history, physical exam, medical decision making, and the department course for this patient. I have also personally directed, reviewed, and agree with the discharge instructions and disposition. <Sheyla Teague - Last Filed: 06/09/18 18:59> Physician Patient Turnover Patient Signed Over To: Nawaf Madrigal Handoff Comments: Pending callback from hospitalist for medical admission <Sheyla Teague - Last Filed: 06/09/18 18:59> Addendum Addendum: 06/09/18 19:36 58 year old female with a history of right-sided pleural effusion and shortness of breath, found to have elevated BNP and right-sided pleural effusion, pending hospitalist admission. Hospitalist Dr. Tong accepted the patient to his service. 06/09/18 21:14 <Nawaf Madrigal - Last Filed: 06/09/18 21:14>
[2018-06-09 17:56] LABS: BASO % 0.6 % (0.0-2.0); EOS # 0.1 K/uL (0.0-0.7); EOS % 2.7 % (0.0-4.0); HEMOGLOBIN 9.7 g/dL (11.0-16.0); LYMPH # 1.4 K/uL (1.0-4.3); LYMPH % 26.6 % (20.0-40.0); MEAN CELL VOLUME 88.5 fL (81.0-99.0); MEAN CORPUSCULAR HEMOGLOBIN 29.5 pg (27.0-31.0); MEAN CORPUSCULAR HGB CONC 33.3 g/dL (33.0-37.0); MONO # 0.3 K/uL (0.0-0.8); MONO % 5.9 % (0.0-10.0); NEUT # 3.3 K/uL (1.8-7.0); NEUT % 64.2 % (50.0-75.0); RBC 3.28 Mil/uL (3.80-5.20); RED CELL DISTRIBUTION WIDTH 13.5 % (11.5-14.5); WHITE BLOOD COUNT 5.2 K/uL (4.8-10.8)
[2018-06-09 18:04] LABS: INR 1.2; PROTHROMBIN TIME 13.1 SECONDS (9.7-12.2)
[2018-06-09] MEDS ORDERED: Labetalol 25mg/5ml Syringe IV STA (18:17)
[2018-06-09 18:20] LABS: ALB/GLOB RATIO 1.1 (1.0-2.1); ALBUMIN 4.7 g/dL (3.5-5.0); CALCIUM 9.2 mg/dl (8.6-10.4)
[2018-06-09 18:21] LABS: CK-MB 0.71 ng/mL (0.0-3.38); TROPONIN I 0.013 ng/mL (0.00-0.120)
[2018-06-09] MEDS ORDERED: Labetalol 5mg/ml (4ml) ONE (18:22)
--- NOTE | 2018-06-09 18:35 | RAD ---
HISTORY: back pain COMPARISON: Chest x-ray performed 05/10/18 TECHNIQUE: Chest PA and lateral FINDINGS: LUNGS: Small right pleural effusion. Mild right basilar atelectasis. Left basilar atelectasis/infiltrate. No visible pneumothorax. Please note that chest x-ray has limited sensitivity for the detection of pulmonary masses. CARDIOVASCULAR: Cardiomegaly. Atherosclerotic calcification of the aorta. OSSEOUS STRUCTURES: Degenerative changes. VISUALIZED UPPER ABDOMEN: Unremarkable. OTHER FINDINGS: None. IMPRESSION: Cardiomegaly. Small right pleural effusion. Mild right basilar atelectasis. Left basilar atelectasis/infiltrate.
[2018-06-09 18:48] LABS: SQUAMOUS EPITHIAL 2 /hpf (0-5); URINE BACTERIA OCC (<OCC); URINE BILIRUBIN NEGATIVE (NEGATIVE); URINE BLOOD 1+ (NEGATIVE); URINE CLARITY Clear (Clear); URINE COLOR Straw (YELLOW); URINE GLUCOSE (UA) NORMAL (Normal); URINE LEUKOCYTE ESTERASE 1+ Leu/uL (Negative); URINE PROTEIN 2+ mg/dL (NEGATIVE); URINE UROBILINOGEN NORMAL mg/dL (0.2-1.0)
[2018-06-09] MEDS ORDERED: Sod Polystyrene Sulf 15 gm/60 ml Susp ONE (18:54)
--- NOTE | 2018-06-09 19:45 | CP.PCM.HP ---
<LissettAlireza shelton - Last Filed: 06/09/18 20:32> History of Present Illness - History of Present Illness History of Present Illness: PGY1 H and P for Dr. Tong Pt is a 58yo F with PMH HFpEF, IDDM2, HTN, HLD, schizophrenia, depression who presents to ED with a 1 week history of worsening back pain and chest pain. Back pain is described as her entire back having a pressure, denies ripping quality, or sharp pain. She also states that she has had a chest pain during this time described as a chest pressure, midsternal, nonradiating. She has had nausea as well, but no vomiting. She endorses feeling some chills yesterday but denies fever. Denies trauma, numbness or tingling, shortness of breath, dyspnea on exertion, palpitations, abdominal pain, n/v/d, hematochezia, melena, dysuria, urinary frequency or urinary urgency, dizziness, lightheadedness, changes in vision, leg pain or swelling, recent cold symptoms, falls, difficulty with ambulation. She denies SI, HI, auditory of visual hallucinations at this time. She reports a headache, frontal, non radiating earlier today, which has resolved. Currently, she states that she feels better after receiving medications in the ED. She reports that she did not take all of her BP medications today. BP elevated in the ED. She recently had a UTI which she completed antibiotics treatment for, but cannot recall details about the medication she took. She reports having a small nose bleed earlier this week, which went away on its own. She states that she sometimes gets nose bleeds. PMD: clinic Pulm: Lisandro Cardio: Evelio Nephro: Sotero PMH: HFpEF, IDDM2, HTN, HLD, schizophrenia, depression PSH: tubal ligation 25 years ago Meds: risperidone 2mg PO HS, Simvastatin 10mg Po HS, Zoloft 100 mg PO QHS, coreg 3.125mg PO QD, norvasc 5mg PO daily, Novolin 15 U ACB, Depakote 250 mg PO BID, metformin 500mg BID, feosol 325 BID, ASA 81 mg PO Daily, ferrous sulfate 325 mg PO BID, Lasix 40 mg PO daily. Allergies: NKDA FHx: liver CA (mother), back CA (father), breast CA (sister), DM (2 brothers) SHx: denies smoking, alcohol or illicit drug use, patient is unemployed and lives at home with daughter Present on Admission - Present on Admission Any Indicators Present on Admission: Yes History of Uncontrolled Diabetes: No Review of Systems - Review of Systems All systems: reviewed and no additional remarkable complaints except (as per HPI) Past Patient History - Infectious Disease Hx of Infectious Diseases: None - Past Medical History & Family History Past Medical History?: Yes - Past Social History Smoking Status: Never Smoked - CARDIAC Hx Hypercholesterolemia: Yes Hx Hypertension: Yes - PULMONARY Hx Respiratory Disorders: No - NEUROLOGICAL Hx Neurological Disorder: Yes Other/Comment: schizophrenia - HEENT Hx HEENT Problems: No - RENAL Hx Chronic Kidney Disease: Yes - ENDOCRINE/METABOLIC Hx Diabetes Mellitus Type 2: Yes - HEMATOLOGICAL/ONCOLOGICAL Hx Blood Disorders: No - INTEGUMENTARY Hx Dermatological Problems: No - MUSCULOSKELETAL/RHEUMATOLOGICAL Hx Arthritis: Yes (L SH) - GASTROINTESTINAL Hx Diverticulitis: No - GENITOURINARY/GYNECOLOGICAL Hx Genitourinary Disorders: Yes Hx Urinary Tract Infection: Yes - PSYCHIATRIC Hx Depression: Yes Hx Schizophrenia: Yes Hx Substance Use: No - SURGICAL HISTORY Hx Surgeries: Yes Hx Tubal Ligation: Yes Other/Comment: ;fibroids removed - ANESTHESIA Hx Anesthesia: Yes Hx Anesthesia Reactions: No Hx Malignant Hyperthermia: No Meds Allergies/Adverse Reactions: Allergies Allergy/AdvReac Type Severity Reaction Status Date / Time No Known Allergies Allergy Verified 06/09/18 15:59 Physical Exam - Constitutional Appears: Non-toxic, No Acute Distress - Head Exam Head Exam: ATRAUMATIC, NORMAL INSPECTION - Eye Exam Eye Exam: EOMI, Normal appearance, PERRL - ENT Exam ENT Exam: Mucous Membranes Moist Additional comments: no dried blood or active bleeding in the nares - Respiratory Exam Respiratory Exam: Decreased Breath Sounds (at the bases), Rales (from the mid lungs down to the bases). absent: Rhonchi, Wheezes, Respiratory Distress, Stridor - Cardiovascular Exam Cardiovascular Exam: REGULAR RHYTHM, +S1, +S2 - GI/Abdominal Exam GI & Abdominal Exam: Normal Bowel Sounds, Soft. absent: Firm, Hernia, Rebound, Rigid, Tenderness Additional comments: no suprapubic tenderness - Extremities Exam Extremities exam: Positive for: normal inspection, pedal pulses present. Negative for: calf tenderness, pedal edema - Back Exam Back exam: NORMAL INSPECTION. absent: CVA tenderness (L), CVA tenderness (R) - Neurological Exam Neurological exam: Alert, CN II-XII Intact, Oriented x3 Additional comments: 5/5 strength in bilateral upper and lower extremities - Psychiatric Exam Psychiatric exam: Normal Affect, Normal Mood Additional comments: Denies SI, HI, visual or auditory hallucinations at this time - Skin Skin Exam: Dry, Intact, Normal Color, Warm Results - Vital Signs Recent Vital Signs: Last Vital Signs Temp 98.7 F 06/09/18 17:14 Pulse 72 06/09/18 19:26 Resp 14 06/09/18 18:44 BP 179/79 H 06/09/18 19:26 Pulse Ox 100 06/09/18 19:00 - Labs Result Diagrams: 06/09/18 17:52 06/09/18 17:52 Labs: Laboratory Results - last 24 hr 06/09/18 06/09/18 06/09/18 17:52 17:52 17:52 WBC 5.2 RBC 3.28 L Hgb 9.7 L Hct 29.0 L MCV 88.5 MCH 29.5 MCHC 33.3 RDW 13.5 Plt Count 175 MPV 7.0 L Neut % (Auto) 64.2 Lymph % (Auto) 26.6 [place] % (Auto) 5.9 Eos % (Auto) 2.7 Baso % (Auto) 0.6 Neut # (Auto) 3.3 Lymph # (Auto) 1.4 [place] # (Auto) 0.3 Eos # (Auto) 0.1 Baso # (Auto) 0.0 PT 13.1 H INR 1.2 APTT 29 Sodium 134 Potassium 5.3 H Chloride 100 Carbon Dioxide 22 Anion Gap 17 BUN 35 H Creatinine 2.3 H Est GFR ( Amer) 26 Est GFR (Non-Af Amer) 22 Random Glucose 115 H D Calcium 9.2 Total Bilirubin 0.4 AST 31 ALT 18 Alkaline Phosphatase 86 CK-MB (Mass) 0.71 Troponin I 0.0130 NT-Pro-B Natriuret Pep 5240 H Total Protein 9.0 H Albumin 4.7 Globulin 4.3 H Albumin/Globulin Ratio 1.1 Urine Color Urine Clarity Urine pH Ur Specific [place] Urine Protein Urine Glucose (UA) Urine Ketones Urine Blood Urine Nitrate Urine Bilirubin Urine Urobilinogen Ur Leukocyte Esterase Urine WBC (Auto) Urine RBC (Auto) Ur Squamous Epith Cells Urine Bacteria 06/09/18 18:34 WBC RBC Hgb Hct MCV MCH MCHC RDW Plt Count MPV Neut % (Auto) Lymph % (Auto) [place] % (Auto) Eos % (Auto) Baso % (Auto) Neut # (Auto) Lymph # (Auto) [place] # (Auto) Eos # (Auto) Baso # (Auto) PT INR APTT Sodium Potassium Chloride Carbon Dioxide Anion Gap BUN Creatinine Est GFR ( Amer) Est GFR (Non-Af Amer) Random Glucose Calcium Total Bilirubin AST ALT Alkaline Phosphatase CK-MB (Mass) Troponin I NT-Pro-B Natriuret Pep Total Protein Albumin Globulin Albumin/Globulin Ratio Urine Color Straw Urine Clarity Clear Urine pH 6.0 Ur Specific [place] 1.006 Urine Protein 2+ H Urine Glucose (UA) Normal Urine Ketones Negative Urine Blood 1+ H Urine Nitrate Negative Urine Bilirubin Negative Urine Urobilinogen Normal Ur Leukocyte Esterase 1+ H Urine WBC (Auto) 10 H Urine RBC (Auto) 6 H Ur Squamous Epith Cells 2 Urine Bacteria Occ H Assessment & Plan - Assessment and Plan (Free Text) Assessment: Pt is a 58yo F with PMH HFpEF, IDDM2, HTN, HLD, schizophrenia, depression who presents to ED with a 1 week history of worsening back pain and chest pain. Plan: Chest pain R/o ACS CXR shows small right plueral effusion. Mild right basilar atelectasis. Left basilar atelectasis/infiltrate. Troponin x1 is 0.0130, EKG shows NSR 80 bpm, with no STTW changes, criteria for LVH, peaked t waves v3-v5. Will trend JOSE x2 with EKGs q6h proBNP is 5240 Given Lasix 40 mg IVP in the am Pleural effusion Likely secondary to Hx of HFpEF and Renal insufficiency CXR shows small right pleural effusion Pt has had thoracentesis during last admission in late April F/u CXR in the am Hypertensive urgency BP elevated in the ED, 180s/80s Given Coreg 6.25 mg PO, Labetalol 20 mg IVP, Lasix 40 mg IVP Continue home amlodipine 5 mg PO QD, Losartan 100 mg PO daily Will give Hydralazine 25 mg PO Placed on Tele monitor Hyperkalemia Potassium is 5.3 EKG shows peaked t waves in v3-v5 Given Kayexalate 15 gm in the ED Will give calcium gluconate 4.65 meq IV Will monitor for BMs, F/u EKGs ordered F/u CMP in am Hx of CHF, diastolic secondary to renal insufficiency Echo 04/2018 shows LVH, 55-60% EF, Mild AR, Mild pulmonary hypertension, mild to moderate AR, Grade I abnormal relaxation pattern. Lasix 40 mg IVP daily Continue home Coreg 3.125 mg PO daily, ASA 81 mg PO daily No ACEi/ARB at this time due to CKD BNP is 5240 on admission, f/u tomorrow morning BNP Cardiology, Dr. Fraser, consulted for the morning. Recommendations appreciated. CKD stage 4 BUN/Cr is 2.3 GFR is 22, similar to prior GFRs in the past Nephrology, Dr. Bey, consulted for the morning. Recs appreciated Hx of IDDM2 Hgb A1C is 5.2 in 04/2018 Hold home metformin RISS low Accucheck ACHS Hx of dyslipidemia TG/LDL/CHL/HDL on 04/14/18 is 86/130/67/40 Simvastatin 10 mg PO QHS is not on formulary Crestor 5 mg PO QHS Hx of schizophrenia, depression Continue home Risperdal 2 mg PO QHS, Sertraline 100 mg PO QHS, Depakote 250 mg PO BID Hx of iron deficiency anemia H/H on admission is 9.7/29.0 Hgb ranges from 8-10 in the past, no signs of acute bleeding on admission Continue home Ferrous sulfate 325 mg PO BID Ppx: No GI ppx at this time Heparin 5000u SC q12, SCDs HHD, CCD, Renal nondialysis diet, 1.5L restriction Dispo: admit to Telemetry Obs Case discussed with Dr. Tong <Quentin Tong - Last Filed: 06/10/18 06:26> Results - Vital Signs Recent Vital Signs: Last Vital Signs Temp 98 F 06/10/18 04:44 Pulse 71 06/10/18 04:44 Resp 20 06/10/18 04:44 BP 136/69 06/10/18 04:44 Pulse Ox 97 06/10/18 04:44 - Labs Result Diagrams: 06/09/18 17:52 06/09/18 17:52 Labs: Laboratory Results - last 24 hr 06/09/18 06/09/18 06/09/18 17:52 17:52 17:52 WBC 5.2 RBC 3.28 L Hgb 9.7 L Hct 29.0 L MCV 88.5 MCH 29.5 MCHC 33.3 RDW 13.5 Plt Count 175 MPV 7.0 L Neut % (Auto) 64.2 Lymph % (Auto) 26.6 [place] % (Auto) 5.9 Eos % (Auto) 2.7 Baso % (Auto) 0.6 Neut # (Auto) 3.3 Lymph # (Auto) 1.4 [place] # (Auto) 0.3 Eos # (Auto) 0.1 Baso # (Auto) 0.0 PT 13.1 H INR 1.2 APTT 29 Sodium 134 Potassium 5.3 H Chloride 100 Carbon Dioxide 22 Anion Gap 17 BUN 35 H Creatinine 2.3 H Est GFR ( Amer) 26 Est GFR (Non-Af Amer) 22 POC Glucose (mg/dL) Random Glucose 115 H D Calcium 9.2 Total Bilirubin 0.4 AST 31 ALT 18 Alkaline Phosphatase 86 Total Creatine Kinase CK-MB (Mass) 0.71 Troponin I 0.0130 NT-Pro-B Natriuret Pep 5240 H Total Protein 9.0 H Albumin 4.7 Globulin 4.3 H Albumin/Globulin Ratio 1.1 Urine Color Urine Clarity Urine pH Ur Specific [place] Urine Protein Urine Glucose (UA) Urine Ketones Urine Blood Urine Nitrate Urine Bilirubin Urine Urobilinogen Ur Leukocyte Esterase Urine WBC (Auto) Urine RBC (Auto) Ur Squamous Epith Cells Urine Bacteria 06/09/18 06/09/18 06/10/18 18:34 21:51 00:22 WBC RBC Hgb Hct MCV MCH MCHC RDW Plt Count MPV Neut % (Auto) Lymph % (Auto) [place] % (Auto) Eos % (Auto) Baso % (Auto) Neut # (Auto) Lymph # (Auto) [place] # (Auto) Eos # (Auto) Baso # (Auto) PT INR APTT Sodium Potassium Chloride Carbon Dioxide Anion Gap BUN Creatinine Est GFR ( Amer) Est GFR (Non-Af Amer) POC Glucose (mg/dL) 184 H Random Glucose Calcium Total Bilirubin AST ALT Alkaline Phosphatase Total Creatine Kinase 31 CK-MB (Mass) 0.67 Troponin I < 0.0120 NT-Pro-B Natriuret Pep Total Protein Albumin Globulin Albumin/Globulin Ratio Urine Color Straw Urine Clarity Clear Urine pH 6.0 Ur Specific [place] 1.006 Urine Protein 2+ H Urine Glucose (UA) Normal Urine Ketones Negative Urine Blood 1+ H Urine Nitrate Negative Urine Bilirubin Negative Urine Urobilinogen Normal Ur Leukocyte Esterase 1+ H Urine WBC (Auto) 10 H Urine RBC (Auto) 6 H Ur Squamous Epith Cells 2 Urine Bacteria Occ H Assessment & Plan - Date & Time Date: 06/10/18 (I have seen and examined the patient. I agree with the findings and plan of care as documented by Dr. Delgado. Patient with chest pain. Hypertensive urgency. ROMIx3 with EKg. Aspirin. Statin. Coreg and Lasix given in ED. Hydralazine prn. Continue home meds. Hyperkalemia. Kayexylate. Nebs. Calcium gluconate. Recheck in AM. Pleural effusion. Thoracocentesis done on prior admission. Consider repeat if necessary. History of CKD. Consult to Nephro to discuss need for eventual dialysis. Monitor for acute changes.) Time: 06:23 Attending/Attestation - Attestation I have personally seen and examined this patient.: Yes I have fully participated in the care of the patient.: Yes I have reviewed all pertinent clinical information: Yes
[2018-06-09] MEDS ORDERED: Dextrose 50% SYRINGE Inj (50 ml) IV PRN (20:14)
[2018-06-09] MEDS ORDERED: Glucagon Recombinant 1 mg Inj IM PRN (20:14)
[2018-06-09] MEDS: Divalproex 250 mg DR Tab PO SCH (21:05)
[2018-06-09] MEDS: (Novolin R) Insulin Human Regular 100 units/ml vial SC SCH (22:01)
[2018-06-10 01:29] LABS: CK-MB 0.67 ng/mL (0.0-3.38)
[2018-06-10 07:42] LABS: BASO % 0.8 % (0.0-2.0); EOS # 0.2 K/uL (0.0-0.7); EOS % 3.8 % (0.0-4.0); LYMPH # 1.5 K/uL (1.0-4.3); LYMPH % 34.7 % (20.0-40.0); MEAN CELL VOLUME 88.5 fL (81.0-99.0); MEAN CORPUSCULAR HEMOGLOBIN 30.5 pg (27.0-31.0); MEAN CORPUSCULAR HGB CONC 34.4 g/dL (33.0-37.0); MEAN PLATELET VOLUME 7.7 fL (7.2-11.7); MONO # 0.3 K/uL (0.0-0.8); MONO % 7.2 % (0.0-10.0); NEUT # 2.4 K/uL (1.8-7.0); NEUT % 53.5 % (50.0-75.0); RBC 2.96 Mil/uL (3.80-5.20); RED CELL DISTRIBUTION WIDTH 13.3 % (11.5-14.5); WHITE BLOOD COUNT 4.5 K/uL (4.8-10.8)
[2018-06-10] MEDS: (Novolin R) Insulin Human Regular 100 units/ml vial SC SCH ×4 (07:44→21:19)
[2018-06-10 08:11] LABS: B-TYPE NATRIURETIC PEPTIDE 5940 pg/mL (0-900); CK-MB 0.55 ng/mL (0.0-3.38)
[2018-06-10 08:12] LABS: ALB/GLOB RATIO 1.2 (1.0-2.1); ALBUMIN 3.9 g/dL (3.5-5.0); ALT/SGPT 12 U/L (9-52); AST/SGOT 21 U/L (14-36); BLOOD UREA NITROGEN 40 mg/dL (7-17); CALCIUM 8.6 mg/dl (8.6-10.4); GFR NON-AFRICAN AMERICAN 20
--- NOTE | 2018-06-10 09:36 | RAD ---
Date of service: 06/10/2018 HISTORY: effusion COMPARISON: No prior. TECHNIQUE: Chest PA and lateral FINDINGS: LUNGS: Elliptical shaped opacity in the right medial lung base probably represents atelectasis and/or possibly infiltrate.. Minimal linear atelectasis left lower lung field suspect small bilateral effusions PLEURA: As above. No pneumothorax apparent. CARDIOVASCULAR: No aortic atherosclerotic calcification present. Normal cardiac size. No pulmonary vascular congestion. OSSEOUS STRUCTURES: No significant abnormalities. VISUALIZED UPPER ABDOMEN: Normal. OTHER FINDINGS: None. IMPRESSION: Elliptical shaped opacity in the right medial lung base probably represents atelectasis and/or possibly infiltrate.. Minimal linear atelectasis left lower lung field suspect small bilateral effusions
[2018-06-10] MEDS: Divalproex 250 mg DR Tab PO SCH ×2 (10:07→17:06)
--- NOTE | 2018-06-10 10:56 | CP.PCM.CON ---
History of Present Illness - History of Present Illness History of Present Illness: Pt is a 58yo F with PMH HFpEF, IDDM2, HTN, HLD, schizophrenia, depression who presents to ED with a 1 week history of worsening back pain and chest pain. Back pain is described as her entire back having a pressure, denies ripping quality, or sharp pain. She also states that she has had a chest pain during this time described as a chest pressure, midsternal, nonradiating. She has had nausea as well, but no vomiting. She endorses feeling some chills yesterday but denies fever. Denies trauma, numbness or tingling, shortness of breath, dyspnea on exertion, palpitations, abdominal pain, n/v/d, hematochezia, melena, dysuria, urinary frequency or urinary urgency, dizziness, lightheadedness, changes in vision, leg pain or swelling, recent cold symptoms, falls, difficulty with ambulation. She denies SI, HI, auditory of visual hallucinations at this time. She reports a headache, frontal, non radiating earlier today, which has resolved. Known CKD , proteinuria secondary to DM Currently, she states that she feels better after receiving medications in the ED. She reports that she did not take all of her BP medications today. BP elevated in the ED. She recently had a UTI which she completed antibiotics treatment for, but cannot recall details about the medication she took. She reports having a small nose bleed earlier this week, which went away on its own. She states that she sometimes gets nose bleeds. PMD: clinic Pulm: Lisandro Cardio: Evelio Nephro: Sotero PMH: HFpEF, IDDM2, HTN, HLD, schizophrenia, depression PSH: tubal ligation 25 years ago Meds: risperidone 2mg PO HS, Simvastatin 10mg Po HS, Zoloft 100 mg PO QHS, coreg 3.125mg PO QD, norvasc 5mg PO daily, Novolin 15 U ACB, Depakote 250 mg PO BID, metformin 500mg BID, feosol 325 BID, ASA 81 mg PO Daily, ferrous sulfate 325 mg PO BID, Lasix 40 mg PO daily. Allergies: NKDA FHx: liver CA (mother), back CA (father), breast CA (sister), DM (2 brothers) no CKD SHx: denies smoking, alcohol or illicit drug use, patient is unemployed and lives at home with daughter Review of Systems - Review of Systems All systems: reviewed and no additional remarkable complaints except - Musculoskeletal Musculoskeletal: Muscle Cramps, Muscle Weakness, Myalgias Past Patient History - Infectious Disease Hx of Infectious Diseases: None - Past Medical History & Family History Past Medical History?: Yes - Past Social History Smoking Status: Never Smoked Chewing Tobacco Use: No Cigar Use: No Alcohol: None Drugs: Denies - CARDIAC Hx Hypercholesterolemia: Yes Hx Hypertension: Yes - PULMONARY Hx Respiratory Disorders: No - NEUROLOGICAL Hx Neurological Disorder: Yes Other/Comment: schizophrenia - HEENT Hx HEENT Problems: No - RENAL Hx Chronic Kidney Disease: Yes - ENDOCRINE/METABOLIC Hx Diabetes Mellitus Type 2: Yes - HEMATOLOGICAL/ONCOLOGICAL Hx Blood Disorders: No - INTEGUMENTARY Hx Dermatological Problems: No - MUSCULOSKELETAL/RHEUMATOLOGICAL Hx Arthritis: Yes (L SH) - GASTROINTESTINAL Hx Diverticulitis: No - GENITOURINARY/GYNECOLOGICAL Hx Genitourinary Disorders: Yes Hx Urinary Tract Infection: Yes - PSYCHIATRIC Hx Depression: Yes Hx Schizophrenia: Yes Hx Substance Use: No - SURGICAL HISTORY Hx Surgeries: Yes Hx Tubal Ligation: Yes Other/Comment: ;fibroids removed - ANESTHESIA Hx Anesthesia: Yes Hx Anesthesia Reactions: No Hx Malignant Hyperthermia: No Meds Allergies/Adverse Reactions: Allergies Allergy/AdvReac Type Severity Reaction Status Date / Time No Known Allergies Allergy Verified 06/09/18 15:59 - Medications Medications: Current Medications Amlodipine Besylate (Norvasc) 5 mg PO DAILY [facility] Last Admin: 06/10/18 10:07 Dose: 5 mg Aspirin (Aspirin Chewable) 81 mg PO DAILY [facility] Last Admin: 06/10/18 10:07 Dose: 81 mg Carvedilol (Coreg) 3.125 mg PO DAILY [facility] Last Admin: 06/10/18 10:06 Dose: 3.125 mg Dextrose (Dextrose 50% Inj) 0 ml IV STAT PRN; Protocol PRN Reason: Hypoglycemia Protocol Dextrose (Glutose 15) 0 gm PO ONCE PRN; Protocol PRN Reason: Hypoglycemia Protocol Divalproex Sodium (Depakote Dr) 250 mg PO BID [facility] Last Admin: 06/10/18 10:07 Dose: 250 mg Ferrous Sulfate (Feosol) 325 mg PO BID [facility] Last Admin: 06/10/18 10:07 Dose: 325 mg Furosemide (Lasix) 40 mg IVP DAILY [facility] Last Admin: 06/10/18 10:06 Dose: 40 mg Glucagon (Glucagen Diagnostic Kit) 0 mg IM STAT PRN; Protocol PRN Reason: Hypoglycemia Protocol Heparin Sodium (Porcine) (Heparin) 5,000 units SC Q12 [facility] Last Admin: 06/10/18 10:07 Dose: 5,000 units Dextrose (Dextrose 5% In Water 1000 Ml) 1,000 mls @ 0 mls/hr IV .Q0M PRN; Protocol PRN Reason: Hypoglycemia Protocol Insulin Human Regular (Novolin R) 0 unit SC ACHS [facility]; Protocol Last Admin: 06/10/18 07:44 Dose: Not Given Losartan Potassium (Cozaar) 100 mg PO DAILY [facility] Risperidone (Risperdal Tab) 2 mg PO HS [facility] Last Admin: 06/09/18 21:58 Dose: 2 mg Rosuvastatin Calcium (Crestor) 5 mg PO HS [facility] Last Admin: 06/09/18 21:57 Dose: 5 mg Sertraline HCl (Zoloft) 100 mg PO [facility] Last Admin: 06/09/18 21:57 Dose: 100 mg Physical Exam - Constitutional Appears: No Acute Distress, Chronically Ill - Head Exam Head Exam: ATRAUMATIC, NORMAL INSPECTION - Eye Exam Eye Exam: EOMI, Normal appearance - Neck Exam Neck exam: Positive for: Normal Inspection. Negative for: Tenderness - Cardiovascular Exam Cardiovascular Exam: REGULAR RHYTHM, +S1 - GI/Abdominal Exam GI & Abdominal Exam: Soft. absent: Tenderness - Neurological Exam Neurological exam: Alert, CN II-XII Intact - Skin Skin Exam: Dry, Warm Results - Vital Signs Recent Vital Signs: Last Vital Signs Temp 98.5 F 06/10/18 07:00 Pulse 83 06/10/18 07:00 Resp 20 06/10/18 07:00 BP 175/80 H 06/10/18 10:06 Pulse Ox 100 06/10/18 07:00 - Labs Result Diagrams: 06/10/18 07:27 06/10/18 07:27 Labs: Laboratory Results - last 24 hr 06/09/18 06/09/18 06/09/18 17:52 17:52 17:52 WBC 5.2 RBC 3.28 L Hgb 9.7 L Hct 29.0 L MCV 88.5 MCH 29.5 MCHC 33.3 RDW 13.5 Plt Count 175 MPV 7.0 L Neut % (Auto) 64.2 Lymph % (Auto) 26.6 [place] % (Auto) 5.9 Eos % (Auto) 2.7 Baso % (Auto) 0.6 Neut # (Auto) 3.3 Lymph # (Auto) 1.4 [place] # (Auto) 0.3 Eos # (Auto) 0.1 Baso # (Auto) 0.0 PT 13.1 H INR 1.2 APTT 29 Sodium 134 Potassium 5.3 H Chloride 100 Carbon Dioxide 22 Anion Gap 17 BUN 35 H Creatinine 2.3 H Est GFR ( Amer) 26 Est GFR (Non-Af Amer) 22 POC Glucose (mg/dL) Random Glucose 115 H D Calcium 9.2 Phosphorus Magnesium Total Bilirubin 0.4 AST 31 ALT 18 Alkaline Phosphatase 86 Total Creatine Kinase CK-MB (Mass) 0.71 Troponin I 0.0130 NT-Pro-B Natriuret Pep 5240 H Total Protein 9.0 H Albumin 4.7 Globulin 4.3 H Albumin/Globulin Ratio 1.1 Urine Color Urine Clarity Urine pH Ur Specific [place] Urine Protein Urine Glucose (UA) Urine Ketones Urine Blood Urine Nitrate Urine Bilirubin Urine Urobilinogen Ur Leukocyte Esterase Urine WBC (Auto) Urine RBC (Auto) Ur Squamous Epith Cells Urine Bacteria 06/09/18 06/09/18 06/10/18 18:34 21:51 00:22 WBC RBC Hgb Hct MCV MCH MCHC RDW Plt Count MPV Neut % (Auto) Lymph % (Auto) [place] % (Auto) Eos % (Auto) Baso % (Auto) Neut # (Auto) Lymph # (Auto) [place] # (Auto) Eos # (Auto) Baso # (Auto) PT INR APTT Sodium Potassium Chloride Carbon Dioxide Anion Gap BUN Creatinine Est GFR ( Amer) Est GFR (Non-Af Amer) POC Glucose (mg/dL) 184 H Random Glucose Calcium Phosphorus Magnesium Total Bilirubin AST ALT Alkaline Phosphatase Total Creatine Kinase 31 CK-MB (Mass) 0.67 Troponin I < 0.0120 NT-Pro-B Natriuret Pep Total Protein Albumin Globulin Albumin/Globulin Ratio Urine Color Straw Urine Clarity Clear Urine pH 6.0 Ur Specific [place] 1.006 Urine Protein 2+ H Urine Glucose (UA) Normal Urine Ketones Negative Urine Blood 1+ H Urine Nitrate Negative Urine Bilirubin Negative Urine Urobilinogen Normal Ur Leukocyte Esterase 1+ H Urine WBC (Auto) 10 H Urine RBC (Auto) 6 H Ur Squamous Epith Cells 2 Urine Bacteria Occ H 06/10/18 06/10/18 06/10/18 06:20 07:27 07:27 WBC 4.5 L RBC 2.96 L Hgb 9.0 L Hct 26.2 L MCV 88.5 MCH 30.5 MCHC 34.4 RDW 13.3 Plt Count 178 MPV 7.7 Neut % (Auto) 53.5 Lymph % (Auto) 34.7 [place] % (Auto) 7.2 Eos % (Auto) 3.8 Baso % (Auto) 0.8 Neut # (Auto) 2.4 Lymph # (Auto) 1.5 [place] # (Auto) 0.3 Eos # (Auto) 0.2 Baso # (Auto) 0.0 PT INR APTT Sodium 135 Potassium 4.2 Chloride 101 Carbon Dioxide 27 Anion Gap 12 BUN 40 H Creatinine 2.5 H Est GFR ( Amer) 24 Est GFR (Non-Af Amer) 20 POC Glucose (mg/dL) 89 Random Glucose 98 Calcium 8.6 Phosphorus 6.2 H Magnesium 1.9 Total Bilirubin 0.2 AST 21 ALT 12 Alkaline Phosphatase 73 Total Creatine Kinase < 20 L CK-MB (Mass) 0.55 Troponin I < 0.0120 NT-Pro-B Natriuret Pep 5940 H Total Protein 7.2 Albumin 3.9 Globulin 3.3 Albumin/Globulin Ratio 1.2 Urine Color Urine Clarity Urine pH Ur Specific [place] Urine Protein Urine Glucose (UA) Urine Ketones Urine Blood Urine Nitrate Urine Bilirubin Urine Urobilinogen Ur Leukocyte Esterase Urine WBC (Auto) Urine RBC (Auto) Ur Squamous Epith Cells Urine Bacteria Assessment & Plan (1) Fluid overload Status: Acute (2) CKD stage 4 due to type 2 diabetes mellitus Status: Acute (3) Proteinuria Status: Acute (4) Chronic anemia Status: Acute (5) Schizophrenia Status: Chronic - Assessment and Plan (Free Text) Plan: check protein excretion rate repeat chemistries check iron stores agree with meds
--- NOTE | 2018-06-10 15:52 | CP.PCM.PN ---
<Ervin Boyd - Last Filed: 06/10/18 15:52> Subjective - Date & Time of Evaluation Date of Evaluation: 06/10/18 Time of Evaluation: 15:50 - Subjective Subjective: Ervin Boyd PGY1 Progress Note for Dr. Darby Pt was examined at bedside this morning. She reports feeling that her breathing is much improved. She denies chest pain, dizziness, fever, chills, abdominal pain, nausea, vomiting. Objective - Vital Signs/Intake and Output Vital Signs (last 24 hours): Temp Pulse Resp BP Pulse Ox 98.5 F 83 20 175/80 H 100 06/10/18 07:00 06/10/18 07:00 06/10/18 07:00 06/10/18 10:06 06/10/18 07:00 - Medications Medications: Current Medications Amlodipine Besylate (Norvasc) 10 mg PO DAILY [facility] Aspirin (Aspirin Chewable) 81 mg PO DAILY [facility] Last Admin: 06/10/18 10:07 Dose: 81 mg Carvedilol (Coreg) 3.125 mg PO DAILY [facility] Last Admin: 06/10/18 10:06 Dose: 3.125 mg Dextrose (Dextrose 50% Inj) 0 ml IV STAT PRN; Protocol PRN Reason: Hypoglycemia Protocol Dextrose (Glutose 15) 0 gm PO ONCE PRN; Protocol PRN Reason: Hypoglycemia Protocol Divalproex Sodium (Depakote Dr) 250 mg PO BID [facility] Last Admin: 06/10/18 10:07 Dose: 250 mg Ferrous Sulfate (Feosol) 325 mg PO BID [facility] Last Admin: 06/10/18 10:07 Dose: 325 mg Furosemide (Lasix) 40 mg IVP DAILY [facility] Last Admin: 06/10/18 10:06 Dose: 40 mg Glucagon (Glucagen Diagnostic Kit) 0 mg IM STAT PRN; Protocol PRN Reason: Hypoglycemia Protocol Heparin Sodium (Porcine) (Heparin) 5,000 units SC Q12 [facility] Last Admin: 06/10/18 10:07 Dose: 5,000 units Dextrose (Dextrose 5% In Water 1000 Ml) 1,000 mls @ 0 mls/hr IV .Q0M PRN; Protocol PRN Reason: Hypoglycemia Protocol Insulin Human Regular (Novolin R) 0 unit SC ACHS [facility]; Protocol Last Admin: 06/10/18 12:26 Dose: 1 u Losartan Potassium (Cozaar) 100 mg PO DAILY [facility] Risperidone (Risperdal Tab) 2 mg PO HS [facility] Last Admin: 06/09/18 21:58 Dose: 2 mg Rosuvastatin Calcium (Crestor) 5 mg PO HS [facility] Last Admin: 06/09/18 21:57 Dose: 5 mg Sertraline HCl (Zoloft) 100 mg PO HS [facility] Last Admin: 06/09/18 21:57 Dose: 100 mg - Labs Labs: 06/10/18 07:27 06/10/18 07:27 PT 13.1 SECONDS (9.7-12.2) H 06/09/18 17:52 INR 1.2 06/09/18 17:52 APTT 29 SECONDS (21-34) 06/09/18 17:52 - Constitutional Appears: Well, No Acute Distress - Head Exam Head Exam: ATRAUMATIC, NORMOCEPHALIC - Eye Exam Eye Exam: EOMI, Normal appearance, PERRL Pupil Exam: NORMAL ACCOMODATION - ENT Exam ENT Exam: Mucous Membranes Moist - Respiratory Exam Respiratory Exam: Clear to Ausculation Bilateral, NORMAL BREATHING PATTERN. absent: Rales, Rhonchi, Wheezes - Cardiovascular Exam Cardiovascular Exam: REGULAR RHYTHM, +S1, +S2. absent: Gallop, Rubs, Murmur - GI/Abdominal Exam GI & Abdominal Exam: Soft, Normal Bowel Sounds. absent: Distended, Tenderness - Extremities Exam Extremities Exam: absent: Pedal Edema - Back Exam Back Exam: absent: CVA tenderness (L), CVA tenderness (R) - Neurological Exam Neurological Exam: Alert, Awake, Oriented x3 - Psychiatric Exam Psychiatric exam: Normal Affect, Normal Mood - Skin Skin Exam: Normal Color Assessment and Plan - Assessment and Plan (Free Text) Assessment: Pt is a 58yo F with PMH HFpEF, IDDM2, HTN, HLD, schizophrenia, depression who presents to ED with a 1 week history of worsening back pain and chest pain. Plan: Chest pain R/o ACS CXR shows small right plueral effusion. Mild right basilar atelectasis. Left basilar atelectasis/infiltrate. Troponin x3 negative. EKG shows NSR 80 bpm, with no STTW changes, criteria for LVH, peaked t waves v3-v5. proBNP is 5240 Given Lasix 40 mg IVP in the am Pleural effusion Likely secondary to Hx of HFpEF and Renal insufficiency Pt has had thoracentesis during last admission in late April CXR 06/10: elliptical shaped opacity in R medial lung base representing atelectasis and/or infiltrate. minimal linear atelectasis LLL field suspect small b/l effusions. Hypertensive urgency, improved BP elevated in the ED, 180s/80s no 170s Continue home amlodipine 5 mg PO QD, Losartan 100 mg PO daily Hydralazine 25 mg PO Placed on Tele monitor Hyperkalemia, resolved Potassium is 4.2 today Given Kayexalate 15 gm in the ED, calcium gluconate 4.65 meq IV Hx of CHF, diastolic secondary to renal insufficiency Echo 04/2018 shows LVH, 55-60% EF, Mild AR, Mild pulmonary hypertension, mild to moderate AR, Grade I abnormal relaxation pattern. Lasix 40 mg IVP daily Continue home Coreg 3.125 mg PO daily, ASA 81 mg PO daily, Losartan 100 mg PO daily BNP is 5940 today Cardiology, Dr. Fraser, consulted - f/u recs CKD stage 4 BUN/Cr is 2.5/40 GFR is 22, similar to prior GFRs in the past Nephrology, Dr. Bey, consulted for the morning. Recs appreciated f/u protein excretion Hx of IDDM2 Hgb A1C is 5.2 in 04/2018 Hold home metformin RISS low Accucheck ACHS Hx of dyslipidemia TG/LDL/CHL/HDL on 04/14/18 is 86/130/67/40 Crestor 5 mg PO QHS Hx of schizophrenia, depression Continue home Risperdal 2 mg PO QHS, Sertraline 100 mg PO QHS, Depakote 250 mg PO BID Hx of iron deficiency anemia H/H 01/04.2 Hgb ranges from 8-10 in the past, no signs of acute bleeding on admission Continue home Ferrous sulfate 325 mg PO BID Ppx: No GI ppx at this time Heparin 5000u SC q12, SCDs HHD, CCD, Renal nondialysis diet, 1.5L restriction Dispo: Awaiting cardiology recs. Case reviewed with Dr. Darby <Richar Dabry - Last Filed: 06/13/18 17:03> Objective - Vital Signs/Intake and Output Vital Signs (last 24 hours): Temp Pulse Resp BP Pulse Ox 98.1 F 80 20 149/77 100 06/13/18 15:00 06/13/18 15:00 06/13/18 15:00 06/13/18 15:00 06/13/18 15:00 Intake and Output: 06/13/18 06/13/18 06:59 18:59 Intake Total 120 Balance 120 - Medications Medications: Current Medications Amlodipine Besylate (Norvasc) 10 mg PO DAILY [facility] Last Admin: 06/13/18 09:20 Dose: 10 mg Aspirin (Aspirin Chewable) 81 mg PO DAILY [facility] Last Admin: 06/13/18 09:20 Dose: 81 mg Carvedilol (Coreg) 6.25 mg PO BID [facility] Last Admin: 06/13/18 09:20 Dose: 6.25 mg Dextrose (Dextrose 50% Inj) 0 ml IV STAT PRN; Protocol PRN Reason: Hypoglycemia Protocol Dextrose (Glutose 15) 0 gm PO ONCE PRN; Protocol PRN Reason: Hypoglycemia Protocol Divalproex Sodium (Depakote Dr) 250 mg PO BID [facility] Last Admin: 06/13/18 09:20 Dose: 250 mg Ferrous Sulfate (Feosol) 325 mg PO BID [facility] Last Admin: 06/13/18 09:20 Dose: 325 mg Furosemide (Lasix) 40 mg PO DAILY [facility] Last Admin: 06/13/18 09:20 Dose: 40 mg Glucagon (Glucagen Diagnostic Kit) 0 mg IM STAT PRN; Protocol PRN Reason: Hypoglycemia Protocol Heparin Sodium (Porcine) (Heparin) 5,000 units SC Q12 [facility] Last Admin: 06/13/18 09:20 Dose: 5,000 units Hydralazine HCl (Apresoline) 50 mg PO BID [facility] Last Admin: 06/13/18 09:20 Dose: 50 mg Dextrose (Dextrose 5% In Water 1000 Ml) 1,000 mls @ 0 mls/hr IV .Q0M PRN; Protocol PRN Reason: Hypoglycemia Protocol Insulin Human Regular (Novolin R) 0 unit SC ACHS [facility]; Protocol Last Admin: 06/13/18 12:23 Dose: 3 unit Losartan Potassium (Cozaar) 100 mg PO DAILY [facility] Last Admin: 06/13/18 09:20 Dose: 100 mg Risperidone (Risperdal Tab) 2 mg PO HS [facility] Last Admin: 06/12/18 21:21 Dose: 2 mg Rosuvastatin Calcium (Crestor) 5 mg PO HS [facility] Last Admin: 06/12/18 21:20 Dose: 5 mg Sertraline HCl (Zoloft) 100 mg PO [facility] Last Admin: 06/12/18 21:21 Dose: 100 mg - Labs Labs: 06/13/18 07:04 06/13/18 07:04 PT 13.1 SECONDS (9.7-12.2) H 06/09/18 17:52 INR 1.2 06/09/18 17:52 APTT 29 SECONDS (21-34) 06/09/18 17:52 Attending/Attestation - Attestation I have personally seen and examined this patient.: Yes I have fully participated in the care of the patient.: Yes I have reviewed all pertinent clinical information, including history, physical exam and plan: Yes Notes (Text): seen and examined by me. 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
--- NOTE | 2018-06-10 20:00 | CP.PCM.CON ---
History of Present Illness - History of Present Illness History of Present Illness: Consultation for evaluation of CHF exacerbation / known hx of HFpEF , severe MR HPI: Review of Systems - Review of Systems Systems not reviewed;Unavailable: Acuity of Condition - Constitutional Constitutional: As Per HPI - EENT Eyes: As Per HPI Ears: As Per HPI Nose/Mouth/Throat: As Per HPI - Breasts Breasts: As Per HPI - Cardiovascular Cardiovascular: As Per HPI - Respiratory Respiratory: As Per HPI - Gastrointestinal Gastrointestinal: As Per HPI - Genitourinary Genitourinary: As Per HPI - Reproductive: Female Reproductive:Female: As Per HPI - Menstruation Menstruation: As Per HPI - Musculoskeletal Musculoskeletal: As Per HPI - Integumentary Integumentary: As Per HPI - Neurological Neurological: As Per HPI - Psychiatric Psychiatric: As Per HPI - Endocrine Endocrine: As Per HPI - Hematologic/Lymphatic Hematologic: As Per HPI Past Patient History - Infectious Disease Hx of Infectious Diseases: None - Past Medical History & Family History Past Medical History?: Yes - Past Social History Smoking Status: Never Smoked Chewing Tobacco Use: No Cigar Use: No Alcohol: None Drugs: Denies - CARDIAC Hx Hypercholesterolemia: Yes Hx Hypertension: Yes - PULMONARY Hx Respiratory Disorders: No - NEUROLOGICAL Hx Neurological Disorder: Yes Other/Comment: schizophrenia - HEENT Hx HEENT Problems: No - RENAL Hx Chronic Kidney Disease: Yes - ENDOCRINE/METABOLIC Hx Diabetes Mellitus Type 2: Yes - HEMATOLOGICAL/ONCOLOGICAL Hx Blood Disorders: No - INTEGUMENTARY Hx Dermatological Problems: No - MUSCULOSKELETAL/RHEUMATOLOGICAL Hx Arthritis: Yes (L SH) - GASTROINTESTINAL Hx Diverticulitis: No - GENITOURINARY/GYNECOLOGICAL Hx Genitourinary Disorders: Yes Hx Urinary Tract Infection: Yes - PSYCHIATRIC Hx Depression: Yes Hx Schizophrenia: Yes Hx Substance Use: No - SURGICAL HISTORY Hx Surgeries: Yes Hx Tubal Ligation: Yes Other/Comment: ;fibroids removed - ANESTHESIA Hx Anesthesia: Yes Hx Anesthesia Reactions: No Hx Malignant Hyperthermia: No Meds Allergies/Adverse Reactions: Allergies Allergy/AdvReac Type Severity Reaction Status Date / Time No Known Allergies Allergy Verified 06/09/18 15:59 - Medications Medications: Current Medications Amlodipine Besylate (Norvasc) 10 mg PO DAILY [facility] Aspirin (Aspirin Chewable) 81 mg PO DAILY [facility] Last Admin: 06/10/18 10:07 Dose: 81 mg Carvedilol (Coreg) 3.125 mg PO DAILY [facility] Last Admin: 06/10/18 10:06 Dose: 3.125 mg Dextrose (Dextrose 50% Inj) 0 ml IV STAT PRN; Protocol PRN Reason: Hypoglycemia Protocol Dextrose (Glutose 15) 0 gm PO ONCE PRN; Protocol PRN Reason: Hypoglycemia Protocol Divalproex Sodium (Depakote Dr) 250 mg PO BID [facility] Last Admin: 06/10/18 17:06 Dose: 250 mg Ferrous Sulfate (Feosol) 325 mg PO BID [facility] Last Admin: 06/10/18 17:06 Dose: 325 mg Furosemide (Lasix) 40 mg IVP DAILY [facility] Last Admin: 06/10/18 10:06 Dose: 40 mg Glucagon (Glucagen Diagnostic Kit) 0 mg IM STAT PRN; Protocol PRN Reason: Hypoglycemia Protocol Heparin Sodium (Porcine) (Heparin) 5,000 units SC Q12 [facility] Last Admin: 06/10/18 10:07 Dose: 5,000 units Dextrose (Dextrose 5% In Water 1000 Ml) 1,000 mls @ 0 mls/hr IV .Q0M PRN; Protocol PRN Reason: Hypoglycemia Protocol Insulin Human Regular (Novolin R) 0 unit SC ACHS [facility]; Protocol Last Admin: 06/10/18 17:05 Dose: 1 units Losartan Potassium (Cozaar) 100 mg PO DAILY [facility] Risperidone (Risperdal Tab) 2 mg PO [facility] Last Admin: 06/09/18 21:58 Dose: 2 mg Rosuvastatin Calcium (Crestor) 5 mg PO [facility] Last Admin: 06/09/18 21:57 Dose: 5 mg Sertraline HCl (Zoloft) 100 mg PO [facility] Last Admin: 06/09/18 21:57 Dose: 100 mg Physical Exam - Constitutional Appears: Well - Head Exam Head Exam: ATRAUMATIC, NORMAL INSPECTION, NORMOCEPHALIC - Eye Exam Eye Exam: EOMI, Normal appearance, PERRL Pupil Exam: NORMAL ACCOMODATION, PERRL - ENT Exam ENT Exam: Mucous Membranes Moist, Normal Exam - Neck Exam Neck exam: Positive for: Normal Inspection - Respiratory Exam Respiratory Exam: Clear to Auscultation Bilateral, NORMAL BREATHING PATTERN - Cardiovascular Exam Cardiovascular Exam: REGULAR RHYTHM, +S1, +S2, Systolic Murmur - GI/Abdominal Exam GI & Abdominal Exam: Normal Bowel Sounds, Soft. absent: Tenderness - Extremities Exam Extremities exam: Positive for: normal inspection - Back Exam Back exam: NORMAL INSPECTION - Neurological Exam Neurological exam: Alert, CN II-XII Intact, Normal Gait, Oriented x3, Reflexes Normal - Psychiatric Exam Psychiatric exam: Normal Affect, Normal Mood - Skin Skin Exam: Dry, Intact, Normal Color, Warm Results - Vital Signs Recent Vital Signs: Last Vital Signs Temp 98.5 F 06/10/18 07:00 Pulse 89 06/10/18 16:00 Resp 20 06/10/18 07:00 BP 175/80 H 06/10/18 10:06 Pulse Ox 100 06/10/18 07:00 - Labs Result Diagrams: 06/10/18 07:27 06/10/18 07:27 Labs: Laboratory Results - last 24 hr 06/09/18 06/10/18 06/10/18 21:51 00:22 06:20 WBC RBC Hgb Hct MCV MCH MCHC RDW Plt Count MPV Neut % (Auto) Lymph % (Auto) Hanson % (Auto) Eos % (Auto) Baso % (Auto) Neut # (Auto) Lymph # (Auto) Hanson # (Auto) Eos # (Auto) Baso # (Auto) Sodium Potassium Chloride Carbon Dioxide Anion Gap BUN Creatinine Est GFR ( Amer) Est GFR (Non-Af Amer) POC Glucose (mg/dL) 184 H 89 Random Glucose Calcium Phosphorus Magnesium Total Bilirubin AST ALT Alkaline Phosphatase Total Creatine Kinase 31 CK-MB (Mass) 0.67 Troponin I < 0.0120 NT-Pro-B Natriuret Pep Total Protein Albumin Globulin Albumin/Globulin Ratio 06/10/18 06/10/18 06/10/18 07:27 07:27 11:22 WBC 4.5 L RBC 2.96 L Hgb 9.0 L Hct 26.2 L MCV 88.5 MCH 30.5 MCHC 34.4 RDW 13.3 Plt Count 178 MPV 7.7 Neut % (Auto) 53.5 Lymph % (Auto) 34.7 Hanson % (Auto) 7.2 Eos % (Auto) 3.8 Baso % (Auto) 0.8 Neut # (Auto) 2.4 Lymph # (Auto) 1.5 Hanson # (Auto) 0.3 Eos # (Auto) 0.2 Baso # (Auto) 0.0 Sodium 135 Potassium 4.2 Chloride 101 Carbon Dioxide 27 Anion Gap 12 BUN 40 H Creatinine 2.5 H Est GFR ( Amer) 24 Est GFR (Non-Af Amer) 20 POC Glucose (mg/dL) 181 H Random Glucose 98 Calcium 8.6 Phosphorus 6.2 H Magnesium 1.9 Total Bilirubin 0.2 AST 21 ALT 12 Alkaline Phosphatase 73 Total Creatine Kinase < 20 L CK-MB (Mass) 0.55 Troponin I < 0.0120 NT-Pro-B Natriuret Pep 5940 H Total Protein 7.2 Albumin 3.9 Globulin 3.3 Albumin/Globulin Ratio 1.2 06/10/18 16:31 WBC RBC Hgb Hct MCV MCH MCHC RDW Plt Count MPV Neut % (Auto) Lymph % (Auto) Hanson % (Auto) Eos % (Auto) Baso % (Auto) Neut # (Auto) Lymph # (Auto) Hanson # (Auto) Eos # (Auto) Baso # (Auto) Sodium Potassium Chloride Carbon Dioxide Anion Gap BUN Creatinine Est GFR ( Amer) Est GFR (Non-Af Amer) POC Glucose (mg/dL) 196 H Random Glucose Calcium Phosphorus Magnesium Total Bilirubin AST ALT Alkaline Phosphatase Total Creatine Kinase CK-MB (Mass) Troponin I NT-Pro-B Natriuret Pep Total Protein Albumin Globulin Albumin/Globulin Ratio Assessment & Plan (1) CHF (congestive heart failure) Assessment and Plan: cont IV lasix cont bb, arb will need ischemic evaluation Status: Acute (2) Chronic anemia Status: Acute (3) Pleural effusion Status: Acute (4) HTN (hypertension) Status: Chronic (5) TRISTON (acute kidney injury) Status: Acute
[2018-06-11] MEDS: (Novolin R) Insulin Human Regular 100 units/ml vial SC SCH ×4 (08:30→21:31)
[2018-06-11 09:26] LABS: BASO % 0.5 % (0.0-2.0); EOS # 0.1 K/uL (0.0-0.7); EOS % 2.5 % (0.0-4.0); HEMOGLOBIN 9.7 g/dL (11.0-16.0); LYMPH # 1.1 K/uL (1.0-4.3); LYMPH % 17.8 % (20.0-40.0); MEAN CELL VOLUME 88.3 fL (81.0-99.0); MEAN CORPUSCULAR HEMOGLOBIN 29.9 pg (27.0-31.0); MEAN CORPUSCULAR HGB CONC 33.9 g/dL (33.0-37.0); MEAN PLATELET VOLUME 7.6 fL (7.2-11.7); MONO # 0.3 K/uL (0.0-0.8); NEUT # 4.5 K/uL (1.8-7.0); NEUT % 74.2 % (50.0-75.0); RBC 3.25 Mil/uL (3.80-5.20); RED CELL DISTRIBUTION WIDTH 13.4 % (11.5-14.5)
[2018-06-11 09:48] LABS: ALB/GLOB RATIO 1.1 (1.0-2.1); ALBUMIN 4.3 g/dL (3.5-5.0); CALCIUM 8.8 mg/dl (8.6-10.4)
[2018-06-11] MEDS: Divalproex 250 mg DR Tab PO SCH ×2 (10:55→16:59)
[2018-06-11 13:27] LABS: URINE 24 HOUR TOTAL PROTEIN 3396.3 mg/24hr (42-225)
--- NOTE | 2018-06-11 15:15 | CP.PCM.PN ---
<Ervin Boyd - Last Filed: 06/11/18 15:17> Subjective - Date & Time of Evaluation Date of Evaluation: 06/11/18 Time of Evaluation: 15:14 - Subjective Subjective: Ervin Boyd PGY1 Progress Note for Dr. Darby Pt was examined at bedside this morning. She reports improvement in her breathing. She denies chest pain, shortness of breath, abdominal pain, nausea, vomiting, dizziness. Objective - Vital Signs/Intake and Output Vital Signs (last 24 hours): Temp Pulse Resp BP Pulse Ox 98.1 F 94 H 20 157/80 H 100 06/11/18 08:00 06/11/18 12:14 06/11/18 08:00 06/11/18 10:55 06/11/18 12:14 - Medications Medications: Current Medications Amlodipine Besylate (Norvasc) 10 mg PO DAILY [facility] Last Admin: 06/11/18 10:55 Dose: 10 mg Aspirin (Aspirin Chewable) 81 mg PO DAILY [facility] Last Admin: 06/11/18 10:55 Dose: 81 mg Carvedilol (Coreg) 3.125 mg PO DAILY [facility] Last Admin: 06/11/18 10:55 Dose: 3.125 mg Dextrose (Dextrose 50% Inj) 0 ml IV STAT PRN; Protocol PRN Reason: Hypoglycemia Protocol Dextrose (Glutose 15) 0 gm PO ONCE PRN; Protocol PRN Reason: Hypoglycemia Protocol Divalproex Sodium (Depakote Dr) 250 mg PO BID [facility] Last Admin: 06/10/18 17:06 Dose: 250 mg Ferrous Sulfate (Feosol) 325 mg PO BID [facility] Last Admin: 06/11/18 10:55 Dose: 325 mg Furosemide (Lasix) 40 mg IVP DAILY [facility] Last Admin: 06/11/18 10:55 Dose: 40 mg Glucagon (Glucagen Diagnostic Kit) 0 mg IM STAT PRN; Protocol PRN Reason: Hypoglycemia Protocol Heparin Sodium (Porcine) (Heparin) 5,000 units SC Q12 [facility] Last Admin: 06/11/18 10:55 Dose: 5,000 units Dextrose (Dextrose 5% In Water 1000 Ml) 1,000 mls @ 0 mls/hr IV .Q0M PRN; Protocol PRN Reason: Hypoglycemia Protocol Insulin Human Regular (Novolin R) 0 unit SC ACHS [facility]; Protocol Last Admin: 06/11/18 08:30 Dose: Not Given Losartan Potassium (Cozaar) 100 mg PO DAILY [facility] Last Admin: 06/11/18 10:55 Dose: 100 mg Risperidone (Risperdal Tab) 2 mg PO [facility] Last Admin: 06/10/18 21:53 Dose: 2 mg Rosuvastatin Calcium (Crestor) 5 mg PO HS [facility] Last Admin: 06/10/18 21:53 Dose: 5 mg Sertraline HCl (Zoloft) 100 mg PO [facility] Last Admin: 06/10/18 21:53 Dose: 100 mg - Labs Labs: 06/11/18 09:17 06/11/18 09:17 PT 13.1 SECONDS (9.7-12.2) H 06/09/18 17:52 INR 1.2 06/09/18 17:52 APTT 29 SECONDS (21-34) 06/09/18 17:52 - Additional Findings Additional findings: - Constitutional Appears: Well, No Acute Distress - Head Exam Head Exam: ATRAUMATIC, NORMOCEPHALIC - Eye Exam Eye Exam: EOMI, Normal appearance, PERRL Pupil Exam: NORMAL ACCOMODATION - ENT Exam ENT Exam: Mucous Membranes Moist - Respiratory Exam Respiratory Exam: Clear to Ausculation Bilateral, NORMAL BREATHING PATTERN. absent: Rales, Rhonchi, Wheezes - Cardiovascular Exam Cardiovascular Exam: REGULAR RHYTHM, +S1, +S2. absent: Gallop, Rubs, Murmur - GI/Abdominal Exam GI & Abdominal Exam: Soft, Normal Bowel Sounds. absent: Distended, Tenderness - Extremities Exam Extremities Exam: absent: Pedal Edema - Back Exam Back Exam: absent: CVA tenderness (L), CVA tenderness (R) - Neurological Exam Neurological Exam: Alert, Awake, Oriented x3 - Psychiatric Exam Psychiatric exam: Normal Affect, Normal Mood - Skin Skin Exam: Normal Color Assessment and Plan - Assessment and Plan (Free Text) Assessment: Pt is a 58yo F with PMH HFpEF, IDDM2, HTN, HLD, schizophrenia, depression who presents to ED with a 1 week history of worsening back pain and chest pain. Plan: Chest pain R/o ACS CXR shows small right plueral effusion. Mild right basilar atelectasis. Left ba silar atelectasis/infiltrate. Troponin x3 negative. EKG shows NSR 80 bpm, with no STTW changes, criteria for LVH, peaked t waves v3-v5. proBNP is 5240 Given Lasix 40 mg IVP in the am Pleural effusion Likely secondary to Hx of HFpEF and Renal insufficiency Pt has had thoracentesis during last admission in late April CXR 06/10: elliptical shaped opacity in R medial lung base representing atelectasis and/or infiltrate. minimal linear atelectasis LLL field suspect small b/l effusions. continue lasix 40mg IV daily Hypertensive urgency, improved BP elevated in the ED, 180s/80s now 130s-150s Continue home amlodipine 5 mg PO QD, Losartan 100 mg PO daily Hydralazine 25 mg PO Placed on Tele monitor Hyperkalemia, resolved Potassium is 4.2 today Given Kayexalate 15 gm in the ED, calcium gluconate 4.65 meq IV Hx of CHF, diastolic secondary to renal insufficiency Echo 04/2018 shows LVH, 55-60% EF, Mild AR, Mild pulmonary hypertension, mild to moderate AR, Grade I abnormal relaxation pattern. Lasix 40 mg IVP daily Continue home Coreg 3.125 mg PO daily, ASA 81 mg PO daily, Losartan 100 mg PO da nathaniel BNP is 5940 today Cardiology, Dr. Fraser, consulted - recs appreciated ischemic workup CKD stage 4 BUN/Cr is 2.7/45 GFR is 22, similar to prior GFRs in the past Nephrology, Dr. Bey, consulted for the morning. Recs appreciated protein excretion elevated Hx of IDDM2 Hgb A1C is 5.2 in 04/2018 Hold home metformin RISS low Accucheck ACHS Hx of dyslipidemia TG/LDL/CHL/HDL on 04/14/18 is 86/130/67/40 Crestor 5 mg PO QHS Hx of schizophrenia, depression Continue home Risperdal 2 mg PO QHS, Sertraline 100 mg PO QHS, Depakote 250 mg PO BID Hx of iron deficiency anemia H/H 9.7/28.7 Hgb ranges from 8-10 in the past, no signs of acute bleeding on admission Continue home Ferrous sulfate 325 mg PO BID Ppx: No GI ppx at this time Heparin 5000u SC q12, SCDs HHD, CCD, Renal nondialysis diet, 1.5L restriction Dispo: Awaiting further cardio testing Case reviewed with Dr. Darby <Richar Darby - Last Filed: 06/13/18 17:02> Objective - Vital Signs/Intake and Output Vital Signs (last 24 hours): Temp Pulse Resp BP Pulse Ox 98.1 F 80 20 149/77 100 06/13/18 15:00 06/13/18 15:00 06/13/18 15:00 06/13/18 15:00 06/13/18 15:00 Intake and Output: 06/13/18 06/13/18 06:59 18:59 Intake Total 120 Balance 120 - Medications Medications: Current Medications Amlodipine Besylate (Norvasc) 10 mg PO DAILY [facility] Last Admin: 06/13/18 09:20 Dose: 10 mg Aspirin (Aspirin Chewable) 81 mg PO DAILY [facility] Last Admin: 06/13/18 09:20 Dose: 81 mg Carvedilol (Coreg) 6.25 mg PO BID [facility] Last Admin: 06/13/18 09:20 Dose: 6.25 mg Dextrose (Dextrose 50% Inj) 0 ml IV STAT PRN; Protocol PRN Reason: Hypoglycemia Protocol Dextrose (Glutose 15) 0 gm PO ONCE PRN; Protocol PRN Reason: Hypoglycemia Protocol Divalproex Sodium (Depakote Dr) 250 mg PO BID [facility] Last Admin: 06/13/18 09:20 Dose: 250 mg Ferrous Sulfate (Feosol) 325 mg PO BID [facility] Last Admin: 06/13/18 09:20 Dose: 325 mg Furosemide (Lasix) 40 mg PO DAILY [facility] Last Admin: 06/13/18 09:20 Dose: 40 mg Glucagon (Glucagen Diagnostic Kit) 0 mg IM STAT PRN; Protocol PRN Reason: Hypoglycemia Protocol Heparin Sodium (Porcine) (Heparin) 5,000 units SC Q12 [facility] Last Admin: 06/13/18 09:20 Dose: 5,000 units Hydralazine HCl (Apresoline) 50 mg PO BID [facility] Last Admin: 06/13/18 09:20 Dose: 50 mg Dextrose (Dextrose 5% In Water 1000 Ml) 1,000 mls @ 0 mls/hr IV .Q0M PRN; Protocol PRN Reason: Hypoglycemia Protocol Insulin Human Regular (Novolin R) 0 unit SC ACHS [facility]; Protocol Last Admin: 06/13/18 12:23 Dose: 3 unit Losartan Potassium (Cozaar) 100 mg PO DAILY [facility] Last Admin: 06/13/18 09:20 Dose: 100 mg Risperidone (Risperdal Tab) 2 mg PO HS [facility] Last Admin: 06/12/18 21:21 Dose: 2 mg Rosuvastatin Calcium (Crestor) 5 mg PO HS [facility] Last Admin: 06/12/18 21:20 Dose: 5 mg Sertraline HCl (Zoloft) 100 mg PO HS [facility] Last Admin: 06/12/18 21:21 Dose: 100 mg - Labs Labs: 06/13/18 07:04 06/13/18 07:04 PT 13.1 SECONDS (9.7-12.2) H 06/09/18 17:52 INR 1.2 06/09/18 17:52 APTT 29 SECONDS (21-34) 06/09/18 17:52 Attending/Attestation - Attestation I have personally seen and examined this patient.: Yes I have fully participated in the care of the patient.: Yes I have reviewed all pertinent clinical information, including history, physical exam and plan: Yes Notes (Text): Seen and examined with the resident Denies chest pain continue IV lasix follow [employer] and nephrology work up D/w resident
[2018-06-11] MEDS: Magnesium Oxide 400 mg Tab UD PO SCH ×2 (16:53→21:28)
[2018-06-12 02:00] VITALS: RESP 20
--- NOTE | 2018-06-12 07:20 | CP.PCM.PN ---
<Lobito Lopez - Last Filed: 06/12/18 14:32> Subjective - Date & Time of Evaluation Date of Evaluation: 06/12/18 Time of Evaluation: 07:19 - Subjective Subjective: PGY-1 Medicine Progress Note for Dr. Phelps Patient seen and examined at bedside this AM, in no acute distress. No acute overnight events reported. Denies any chest pain, palpitations, sob, abdominal pain, n/v/d/c. 12 pt ROS reviewed and otherwise negative. Objective - Vital Signs/Intake and Output Vital Signs (last 24 hours): Temp Pulse Resp BP Pulse Ox 98 F 72 20 138/71 96 06/12/18 04:30 06/12/18 04:30 06/12/18 04:30 06/12/18 04:30 06/12/18 04:30 Intake and Output: 06/12/18 06/12/18 06:59 18:59 Intake Total 500 Balance 500 - Medications Medications: Current Medications Amlodipine Besylate (Norvasc) 10 mg PO DAILY [facility] Last Admin: 06/11/18 10:55 Dose: 10 mg Aspirin (Aspirin Chewable) 81 mg PO DAILY [facility] Last Admin: 06/11/18 10:55 Dose: 81 mg Carvedilol (Coreg) 3.125 mg PO DAILY [facility] Last Admin: 06/11/18 10:55 Dose: 3.125 mg Dextrose (Dextrose 50% Inj) 0 ml IV STAT PRN; Protocol PRN Reason: Hypoglycemia Protocol Dextrose (Glutose 15) 0 gm PO ONCE PRN; Protocol PRN Reason: Hypoglycemia Protocol Divalproex Sodium (Depakote Dr) 250 mg PO BID [facility] Last Admin: 06/11/18 16:59 Dose: 250 mg Ferrous Sulfate (Feosol) 325 mg PO BID [facility] Last Admin: 06/11/18 16:59 Dose: 325 mg Furosemide (Lasix) 40 mg IVP DAILY [facility] Last Admin: 06/11/18 10:55 Dose: 40 mg Glucagon (Glucagen Diagnostic Kit) 0 mg IM STAT PRN; Protocol PRN Reason: Hypoglycemia Protocol Heparin Sodium (Porcine) (Heparin) 5,000 units SC Q12 [facility] Last Admin: 06/11/18 21:27 Dose: 5,000 units Dextrose (Dextrose 5% In Water 1000 Ml) 1,000 mls @ 0 mls/hr IV .Q0M PRN; Protocol PRN Reason: Hypoglycemia Protocol Insulin Human Regular (Novolin R) 0 unit SC ACHS [facility]; Protocol Last Admin: 06/11/18 21:31 Dose: Not Given Losartan Potassium (Cozaar) 100 mg PO DAILY [facility] Last Admin: 06/11/18 10:55 Dose: 100 mg Risperidone (Risperdal Tab) 2 mg PO HS [facility] Last Admin: 06/11/18 21:28 Dose: 2 mg Rosuvastatin Calcium (Crestor) 5 mg PO HS [facility] Last Admin: 06/11/18 21:28 Dose: 5 mg Sertraline HCl (Zoloft) 100 mg PO HS [facility] Last Admin: 06/11/18 21:28 Dose: 100 mg - Labs Labs: 06/11/18 09:17 06/11/18 09:17 PT 13.1 SECONDS (9.7-12.2) H 06/09/18 17:52 INR 1.2 06/09/18 17:52 APTT 29 SECONDS (21-34) 06/09/18 17:52 - Constitutional Appears: Non-toxic, No Acute Distress - Head Exam Head Exam: ATRAUMATIC, NORMAL INSPECTION, NORMOCEPHALIC - Eye Exam Eye Exam: EOMI, Normal appearance Pupil Exam: NORMAL ACCOMODATION - ENT Exam ENT Exam: Mucous Membranes Moist, Normal Exam - Neck Exam Neck Exam: Full ROM, Normal Inspection - Respiratory Exam Respiratory Exam: Clear to Ausculation Bilateral, NORMAL BREATHING PATTERN. absent: Accessory Muscle Use, Rales, Rhonchi, Wheezes, Respiratory Distress, Stridor - Cardiovascular Exam Cardiovascular Exam: REGULAR RHYTHM, +S1, +S2 - GI/Abdominal Exam GI & Abdominal Exam: Soft, Normal Bowel Sounds. absent: Distended, Firm, Guarding, Rigid, Tenderness, Rebound - Extremities Exam Extremities Exam: Full ROM, Normal Capillary Refill, Normal Inspection. absent: Calf Tenderness, Pedal Edema - Back Exam Back Exam: NORMAL INSPECTION - Neurological Exam Neurological Exam: Alert, Awake, Normal Gait, Oriented x3 - Skin Skin Exam: Dry, Intact, Normal Color, Warm Assessment and Plan - Assessment and Plan (Free Text) Assessment: 58 year old F with PMH HFpEF, IDDM2, HTN, HLD, schizophrenia, depression who presents to ED with a 1 week history of worsening back pain and chest pain. Plan: CHF exacerbation Hx of HFpEF and Renal insufficiency -pt in no acute distress, chest pain subsided -serial troponins wnl -BNP 5240 on admission -EKG (06/10): NSR 82 bpm -Cardiology (Dr. Fraser) on case -will need further ischemic evaluation -f/u recs -CXR (06/10): elliptical shaped opacity in R medial lung base representing atelectasis and/or infiltrate. minimal linear atelectasis LLL field suspect small b/l effusions -Pt has had thoracentesis during last admission in late April -Echo (04/2018): LVH, 55-60% EF, Mild AR, Mild pulmonary hypertension, mild to moderate AR, Grade I abnormal relaxation pattern. -Lasix 40 IV daily -Coreg 6.25 mg PO BID -Losartan 100 mg PO daily -Norvasc 10 mg PO daily Hypertensive urgency, improved -SBP continues to run in 170s today -pt asymptomatic, continue to monitor -Losartan 100 mg PO daily -Norvasc 10 mg PO daily -Coreg increased to 6.25 mg PO BID per Nephrology (06/12) -added hydralazine 50 mg PO BID (06/12) CKD stage 4 -BUN/Cr is 41/2.7 (06/12) -GFR is 22, similar to prior GFRs in the past -total urine protein excretion elevated -Nephrology recs (Dr. Bey) appreciated Hx of IDDM2 -A1C 6.4 -ISS low -Accucheck ACHS -hypoglycemic protocol Hx of HLD -Crestor 5 mg PO QHS Hx of schizophrenia, depression -Risperdal 2 mg PO QHS -Sertraline 100 mg PO QHS -Depakote 250 mg PO BID Hx of iron deficiency anemia -H/H 9.8/28.4 (06/12) -Hgb ranges from 8-10 in the past, no signs of acute bleeding on admission -c/w ferrous sulfate 325 mg PO BID Ppx, Diet, Disposition -DVT ppx: scds, heparin -GI ppx: not indicated at this time -Diet: HHD, renal nondialysis 1.5 L restriction Dispo: Awaiting further cardio testing Case discussed with Dr. Mattie Lopez DO, PGY-1 <Sae Phelps H - Last Filed: 06/12/18 15:54> Objective - Vital Signs/Intake and Output Vital Signs (last 24 hours): Temp Pulse Resp BP Pulse Ox 98.5 F 85 20 172/85 H 100 06/12/18 08:00 06/12/18 09:48 06/12/18 09:48 06/12/18 09:49 06/12/18 09:48 Intake and Output: 06/12/18 06/12/18 06:59 18:59 Intake Total 500 Balance 500 - Medications Medications: Current Medications Amlodipine Besylate (Norvasc) 10 mg PO DAILY [facility] Last Admin: 06/12/18 09:48 Dose: 10 mg Aspirin (Aspirin Chewable) 81 mg PO DAILY [facility] Last Admin: 06/12/18 09:49 Dose: 81 mg Carvedilol (Coreg) 6.25 mg PO BID [facility] Dextrose (Dextrose 50% Inj) 0 ml IV STAT PRN; Protocol PRN Reason: Hypoglycemia Protocol Dextrose (Glutose 15) 0 gm PO ONCE PRN; Protocol PRN Reason: Hypoglycemia Protocol Divalproex Sodium (Depakote Dr) 250 mg PO BID [facility] Last Admin: 06/12/18 09:48 Dose: 250 mg Ferrous Sulfate (Feosol) 325 mg PO BID [facility] Last Admin: 06/12/18 09:48 Dose: 325 mg Furosemide (Lasix) 40 mg PO DAILY [facility] Glucagon (Glucagen Diagnostic Kit) 0 mg IM STAT PRN; Protocol PRN Reason: Hypoglycemia Protocol Heparin Sodium (Porcine) (Heparin) 5,000 units SC Q12 [facility] Last Admin: 06/12/18 09:49 Dose: 5,000 units Hydralazine HCl (Apresoline) 50 mg PO BID [facility] Dextrose (Dextrose 5% In Water 1000 Ml) 1,000 mls @ 0 mls/hr IV .Q0M PRN; P rotocol PRN Reason: Hypoglycemia Protocol Influenza Virus Vaccine (Flucelvax Quad [id number] Syr) 60 mcg IM .ONCE ONE Stop: 06/13/18 14:01 Insulin Human Regular (Novolin R) 0 unit SC ACHS [facility]; Protocol Last Admin: 06/12/18 12:14 Dose: 3 unit Losartan Potassium (Cozaar) 100 mg PO DAILY [facility] Last Admin: 06/12/18 09:48 Dose: 100 mg Pneumococcal Polyvalent Vaccine (Pneumovax 23 Vaccine) 0.5 ml IM .ONCE ONE Stop: 06/13/18 14:01 Risperidone (Risperdal Tab) 2 mg PO HS [facility] Last Admin: 06/11/18 21:28 Dose: 2 mg Rosuvastatin Calcium (Crestor) 5 mg PO HS [facility] Last Admin: 06/11/18 21:28 Dose: 5 mg Sertraline HCl (Zoloft) 100 mg PO HS [facility] Last Admin: 06/11/18 21:28 Dose: 100 mg - Labs Labs: 06/12/18 09:09 06/12/18 09:09 PT 13.1 SECONDS (9.7-12.2) H 06/09/18 17:52 INR 1.2 06/09/18 17:52 APTT 29 SECONDS (21-34) 06/09/18 17:52 Attending/Attestation - Attestation I have personally seen and examined this patient.: Yes I have fully participated in the care of the patient.: Yes I have reviewed all pertinent clinical information, including history, physical exam and plan: Yes Notes (Text): 06/12/18 15:52 Medical attending: Patient was seen and examined by me. Agree with the above note by the resident The patient was not in any acute distress when I came and saw with the medical residents The patient reported feeling much better and breathing much easier BP was still elevated and her medications were further adjusted pending cardiology evaluation at this time On exam we also walked her around in the hallway and she did ok. She denied chest pain, denied palpitations, denied shortness of breath when we walked her [place] Phelps
[2018-06-12] MEDS: (Novolin R) Insulin Human Regular 100 units/ml vial SC SCH ×4 (07:52→21:20)
--- NOTE | 2018-06-12 08:35 | CP.PCM.PN ---
Subjective - Date & Time of Evaluation Date of Evaluation: 06/12/18 Time of Evaluation: 07:00 - Subjective Subjective: Pt seen and examined this morning at bedside. Pt has no new complaints at this time. Objective - Vital Signs/Intake and Output Vital Signs (last 24 hours): Temp Pulse Resp BP Pulse Ox 98.5 F 91 H 20 178/84 H 100 06/12/18 08:00 06/12/18 08:00 06/12/18 08:00 06/12/18 08:00 06/12/18 08:00 Intake and Output: 06/12/18 06/12/18 06:59 18:59 Intake Total 500 Balance 500 - Medications Medications: Current Medications Amlodipine Besylate (Norvasc) 10 mg PO DAILY [facility] Last Admin: 06/11/18 10:55 Dose: 10 mg Aspirin (Aspirin Chewable) 81 mg PO DAILY [facility] Last Admin: 06/11/18 10:55 Dose: 81 mg Carvedilol (Coreg) 3.125 mg PO DAILY [facility] Last Admin: 06/11/18 10:55 Dose: 3.125 mg Dextrose (Dextrose 50% Inj) 0 ml IV STAT PRN; Protocol PRN Reason: Hypoglycemia Protocol Dextrose (Glutose 15) 0 gm PO ONCE PRN; Protocol PRN Reason: Hypoglycemia Protocol Divalproex Sodium (Depakote Dr) 250 mg PO BID [facility] Last Admin: 06/11/18 16:59 Dose: 250 mg Ferrous Sulfate (Feosol) 325 mg PO BID [facility] Last Admin: 06/11/18 16:59 Dose: 325 mg Furosemide (Lasix) 40 mg IVP DAILY [facility] Last Admin: 06/11/18 10:55 Dose: 40 mg Glucagon (Glucagen Diagnostic Kit) 0 mg IM STAT PRN; Protocol PRN Reason: Hypoglycemia Protocol Heparin Sodium (Porcine) (Heparin) 5,000 units SC Q12 [facility] Last Admin: 06/11/18 21:27 Dose: 5,000 units Dextrose (Dextrose 5% In Water 1000 Ml) 1,000 mls @ 0 mls/hr IV .Q0M PRN; Protocol PRN Reason: Hypoglycemia Protocol Insulin Human Regular (Novolin R) 0 unit SC ACHS [facility]; Protocol Last Admin: 06/12/18 07:52 Dose: Not Given Losartan Potassium (Cozaar) 100 mg PO DAILY [facility] Last Admin: 06/11/18 10:55 Dose: 100 mg Risperidone (Risperdal Tab) 2 mg PO HS [facility] Last Admin: 06/11/18 21:28 Dose: 2 mg Rosuvastatin Calcium (Crestor) 5 mg PO HS [facility] Last Admin: 06/11/18 21:28 Dose: 5 mg Sertraline HCl (Zoloft) 100 mg PO HS [facility] Last Admin: 06/11/18 21:28 Dose: 100 mg - Labs Labs: 06/11/18 09:17 06/11/18 09:17 PT 13.1 SECONDS (9.7-12.2) H 06/09/18 17:52 INR 1.2 06/09/18 17:52 APTT 29 SECONDS (21-34) 06/09/18 17:52 - Constitutional Appears: No Acute Distress - Head Exam Head Exam: ATRAUMATIC, NORMOCEPHALIC - Eye Exam Eye Exam: EOMI - ENT Exam ENT Exam: Mucous Membranes Moist - Neck Exam Neck Exam: Full ROM, Normal Inspection - Respiratory Exam Respiratory Exam: Clear to Ausculation Bilateral, NORMAL BREATHING PATTERN. absent: Accessory Muscle Use, Respiratory Distress - Cardiovascular Exam Cardiovascular Exam: RRR, +S1, +S2. absent: Diastolic murmur - GI/Abdominal Exam GI & Abdominal Exam: Soft, Normal Bowel Sounds - Extremities Exam Extremities Exam: Full ROM. absent: Calf Tenderness, Pedal Edema - Neurological Exam Neurological Exam: Alert, Awake, Oriented x3 - Psychiatric Exam Psychiatric exam: Normal Affect, Normal Mood - Skin Skin Exam: Dry, Normal Color, Warm Assessment and Plan - Assessment and Plan (Free Text) Assessment: (1) CHF (congestive heart failure) Status: Acute (2) Chronic anemia Status: Acute (3) Pleural effusion Status: Acute (4) HTN (hypertension) Status: Chronic (5) TRISTON (acute kidney injury) Status: Acute Plan: CHF exacerbation Chronic anemia Pleural effusion HTN TRISTON Trop 06/09 negative x3 HA1C 6.4 BNP 06/09 5240, 06/10 5940, 06/11 3700 EKG 06/[address] or T wave abnormalities Medications amlodipine ASA coreg lasix 40mg IVP daily mitchell rasheed Pt seen, examined, assessment and plan discussed with Dr Evelio Potts PGY1
[2018-06-12 09:25] LABS: BASO % 0.7 % (0.0-2.0); EOS # 0.1 K/uL (0.0-0.7); EOS % 3.1 % (0.0-4.0); HEMOGLOBIN 9.8 g/dL (11.0-16.0); LYMPH # 1.1 K/uL (1.0-4.3); LYMPH % 23.6 % (20.0-40.0); MEAN CELL VOLUME 88.2 fL (81.0-99.0); MEAN CORPUSCULAR HEMOGLOBIN 30.3 pg (27.0-31.0); MEAN CORPUSCULAR HGB CONC 34.4 g/dL (33.0-37.0); MEAN PLATELET VOLUME 7.7 fL (7.2-11.7); MONO # 0.2 K/uL (0.0-0.8); MONO % 5.4 % (0.0-10.0); NEUT # 3.1 K/uL (1.8-7.0); NEUT % 67.2 % (50.0-75.0); RBC 3.22 Mil/uL (3.80-5.20); RED CELL DISTRIBUTION WIDTH 13.5 % (11.5-14.5); WHITE BLOOD COUNT 4.6 K/uL (4.8-10.8)
[2018-06-12 09:33] LABS: ALB/GLOB RATIO 1.2 (1.0-2.1); ALBUMIN 4.5 g/dL (3.5-5.0); CALCIUM 8.9 mg/dl (8.6-10.4)
[2018-06-12] MEDS: Divalproex 250 mg DR Tab PO SCH ×2 (09:48→17:40)
--- NOTE | 2018-06-12 11:35 | CP.PCM.PN ---
Subjective - Date & Time of Evaluation Date of Evaluation: 06/12/18 Time of Evaluation: 11:33 - Subjective Subjective: alert less SOB no new complaints renal function same last few days BP elevated Objective - Vital Signs/Intake and Output Vital Signs (last 24 hours): Temp Pulse Resp BP Pulse Ox 98.5 F 85 20 172/85 H 100 06/12/18 08:00 06/12/18 09:48 06/12/18 09:48 06/12/18 09:49 06/12/18 09:48 Intake and Output: 06/12/18 06/12/18 06:59 18:59 Intake Total 500 Balance 500 - Medications Medications: Current Medications Amlodipine Besylate (Norvasc) 10 mg PO DAILY [facility] Last Admin: 06/12/18 09:48 Dose: 10 mg Aspirin (Aspirin Chewable) 81 mg PO DAILY [facility] Last Admin: 06/12/18 09:49 Dose: 81 mg Carvedilol (Coreg) 3.125 mg PO DAILY [facility] Last Admin: 06/12/18 09:48 Dose: 3.125 mg Dextrose (Dextrose 50% Inj) 0 ml IV STAT PRN; Protocol PRN Reason: Hypoglycemia Protocol Dextrose (Glutose 15) 0 gm PO ONCE PRN; Protocol PRN Reason: Hypoglycemia Protocol Divalproex Sodium (Depakote Dr) 250 mg PO BID [facility] Last Admin: 06/12/18 09:48 Dose: 250 mg Ferrous Sulfate (Feosol) 325 mg PO BID [facility] Last Admin: 06/12/18 09:48 Dose: 325 mg Furosemide (Lasix) 40 mg IVP DAILY [facility] Last Admin: 06/12/18 09:49 Dose: 40 mg Glucagon (Glucagen Diagnostic Kit) 0 mg IM STAT PRN; Protocol PRN Reason: Hypoglycemia Protocol Heparin Sodium (Porcine) (Heparin) 5,000 units SC Q12 [facility] Last Admin: 06/12/18 09:49 Dose: 5,000 units Dextrose (Dextrose 5% In Water 1000 Ml) 1,000 mls @ 0 mls/hr IV .Q0M PRN; Protocol PRN Reason: Hypoglycemia Protocol Insulin Human Regular (Novolin R) 0 unit SC ACHS [facility]; Protocol Last Admin: 06/12/18 07:52 Dose: Not Given Losartan Potassium (Cozaar) 100 mg PO DAILY [facility] Last Admin: 06/12/18 09:48 Dose: 100 mg Risperidone (Risperdal Tab) 2 mg PO HS [facility] Last Admin: 06/11/18 21:28 Dose: 2 mg Rosuvastatin Calcium (Crestor) 5 mg PO HS [facility] Last Admin: 06/11/18 21:28 Dose: 5 mg Sertraline HCl (Zoloft) 100 mg PO HS [facility] Last Admin: 06/11/18 21:28 Dose: 100 mg - Labs Labs: 06/12/18 09:09 06/12/18 09:09 PT 13.1 SECONDS (9.7-12.2) H 06/09/18 17:52 INR 1.2 06/09/18 17:52 APTT 29 SECONDS (21-34) 06/09/18 17:52 - Constitutional Appears: No Acute Distress, Chronically Ill - Head Exam Head Exam: ATRAUMATIC, NORMAL INSPECTION - Eye Exam Eye Exam: EOMI, Normal appearance - Neck Exam Neck Exam: Normal Inspection. absent: Tenderness - Cardiovascular Exam Cardiovascular Exam: REGULAR RHYTHM, +S1 - GI/Abdominal Exam GI & Abdominal Exam: Soft. absent: Tenderness - Extremities Exam Extremities Exam: Normal Inspection. absent: Tenderness - Neurological Exam Neurological Exam: Awake, CN II-XII Intact - Skin Skin Exam: Dry, Warm Assessment and Plan (1) Fluid overload Status: Acute (2) CKD stage 4 due to type 2 diabetes mellitus Status: Acute (3) Proteinuria Status: Acute (4) Chronic anemia Status: Acute (5) Schizophrenia Status: Chronic - Assessment and Plan (Free Text) Plan: increase BP meds monitor renal function would switch to po lasix soon
--- NOTE | 2018-06-12 12:46 | CARD ---
APPROVED REPORT Date of service: 06/09/2018 EKG Measurement Heart [id number] <Conclusion> Normal sinus rhythm Normal ECG
--- NOTE | 2018-06-12 14:23 | CARD ---
APPROVED REPORT Date of service: 06/10/2018 EKG Measurement Heart [id number] [id number] <Conclusion> Normal sinus rhythm Normal ECG
--- NOTE | 2018-06-12 14:25 | CARD ---
APPROVED REPORT Date of service: 06/10/2018 EKG Measurement Heart [id number] [id number] <Conclusion> Normal sinus rhythm Normal ECG
--- NOTE | 2018-06-13 07:09 | CP.PCM.DIS ---
Provider - Provider Date of Admission: 06/09/18 20:27 Attending physician: Sae Phelps DO Consults: 06/10/18 06:00 Cardiology Consult Routine Comment: Consulting Provider: Julian Fraser Consulting Physician: Julian Fraesr Reason for Consult: Hx of HFpEF, HTN, presented with CP, pleural effusion. Known to you. Nephrology Consult Routine Comment: Consulting Provider: Evan Bey Consulting Physician: Evan Bey Reason for Consult: Hx of CKD, presented with pleural effusion. Known to you. Time Spent in preparation of Discharge (in minutes): 40 Hospital Course - Lab Results Lab Results: Micro Results 06/10/18 07:06 Urine,Clean Catch Urine Culture - Final Coagulase Neg Staphylococcus Most Recent Lab Values WBC 4.6 K/uL (4.8-10.8) L 06/12/18 09:09 RBC 3.22 Mil/uL (3.80-5.20) L 06/12/18 09:09 Hgb 9.8 g/dL (11.0-16.0) L 06/12/18 09:09 Hct 28.4 % (34.0-47.0) L 06/12/18 09:09 MCV 88.2 fL (81.0-99.0) 06/12/18 09:09 MCH 30.3 pg (27.0-31.0) 06/12/18 09:09 MCHC 34.4 g/dL (33.0-37.0) 06/12/18 09:09 RDW 13.5 % (11.5-14.5) 06/12/18 09:09 Plt Count 183 K/uL (130-400) 06/12/18 09:09 MPV 7.7 fL (7.2-11.7) 06/12/18 09:09 Neut % (Auto) 67.2 % (50.0-75.0) 06/12/18 09:09 Lymph % (Auto) 23.6 % (20.0-40.0) 06/12/18 09:09 [place] % (Auto) 5.4 % (0.0-10.0) 06/12/18 09:09 Eos % (Auto) 3.1 % (0.0-4.0) 06/12/18 09:09 Baso % (Auto) 0.7 % (0.0-2.0) 06/12/18 09:09 Neut # (Auto) 3.1 K/uL (1.8-7.0) 06/12/18 09:09 Lymph # (Auto) 1.1 K/uL (1.0-4.3) 06/12/18 09:09 [place] # (Auto) 0.2 K/uL (0.0-0.8) 06/12/18 09:09 Eos # (Auto) 0.1 K/uL (0.0-0.7) 06/12/18 09:09 Baso # (Auto) 0.0 K/uL (0.0-0.2) 06/12/18 09:09 PT 13.1 SECONDS (9.7-12.2) H 06/09/18 17:52 INR 1.2 06/09/18 17:52 APTT 29 SECONDS (21-34) 06/09/18 17:52 Sodium 133 mmol/L (132-148) 06/12/18 09:09 Potassium 4.7 mmol/L (3.6-5.2) 06/12/18 09:09 Chloride 96 mmol/L (98-107) L 06/12/18 09:09 Carbon Dioxide 28 mmol/L (22-30) 06/12/18 09:09 Anion Gap 13 (10-20) 06/12/18 09:09 BUN 41 mg/dL (7-17) H 06/12/18 09:09 Creatinine 2.7 mg/dL (0.7-1.2) H 06/12/18 09:09 Est GFR ( Amer) 22 06/12/18 09:09 Est GFR (Non-Af Amer) 18 06/12/18 09:09 POC Glucose (mg/dL) 244 mg/dL (65-110) H 06/12/18 20:55 Random Glucose 187 mg/dL (65-105) H 06/12/18 09:09 Hemoglobin A1c 6.4 % (4.2-6.5) 06/12/18 09:55 Calcium 8.9 mg/dl (8.6-10.4) 06/12/18 09:09 Phosphorus 4.0 mg/dL (2.5-4.5) 06/12/18 09:09 Magnesium 2.1 mg/dL (1.6-2.3) 06/12/18 09:09 % Saturation 32 (20-55) 06/11/18 09:17 Ferritin 185.0 ng/mL 06/11/18 09:17 Total Bilirubin 0.3 mg/dL (0.2-1.3) 06/12/18 09:09 AST 23 U/L (14-36) 06/12/18 09:09 ALT 9 U/L (9-52) 06/12/18 09:09 Alkaline Phosphatase 80 U/L (38-126) 06/12/18 09:09 Total Creatine Kinase < 20 U/L (30-135) L 06/10/18 07:27 CK-MB (Mass) 0.55 ng/mL (0.0-3.38) 06/10/18 07:27 Troponin I < 0.0120 ng/mL (0.00-0.120) 06/10/18 07:27 NT-Pro-B Natriuret Pep 3700 pg/mL (0-900) H 06/11/18 09:17 Total Protein 8.2 g/dL (6.3-8.3) 06/12/18 09:09 Albumin 4.5 g/dL (3.5-5.0) 06/12/18 09:09 Globulin 3.7 gm/dL (2.2-3.9) 06/12/18 09:09 Albumin/Globulin Ratio 1.2 (1.0-2.1) 06/12/18 09:09 Urine Color Straw (YELLOW) 06/09/18 18:34 Urine Clarity Clear (Clear) 06/09/18 18:34 Urine pH 6.0 (5.0-8.0) 06/09/18 18:34 Ur Specific [place] 1.006 (1.003-1.030) 06/09/18 18:34 Urine Protein 2+ mg/dL (NEGATIVE) H 06/09/18 18:34 Urine Glucose (UA) Normal mg/dL (Normal) 06/09/18 18:34 Urine Ketones Negative mg/dL (NEGATIVE) 06/09/18 18:34 Urine Blood 1+ (NEGATIVE) H 06/09/18 18:34 Urine Nitrate Negative (NEGATIVE) 06/09/18 18:34 Urine Bilirubin Negative (NEGATIVE) 06/09/18 18:34 Urine Urobilinogen Normal mg/dL (0.2-1.0) 06/09/18 18:34 Ur Leukocyte Esterase 1+ Juan Jose/uL (Negative) H 06/09/18 18:34 Urine WBC (Auto) 10 /hpf (0-5) H 06/09/18 18:34 Urine RBC (Auto) 6 /hpf (0-3) H 06/09/18 18:34 Ur Squamous Epith Cells 2 /hpf (0-5) 06/09/18 18:34 Urine Bacteria Occ (<OCC) H 06/09/18 18:34 Urine Collection Time 24 HRS 06/11/18 13:06 Urine Total Volume 3575 mL 06/11/18 13:06 Ur Protein 24 Hr Calc 3396.3 mg/24hr (42-225) H 06/11/18 13:06 Discharge Exam - Head Exam Head Exam: ATRAUMATIC, NORMOCEPHALIC Discharge Plan - Follow Up Plan Condition: STABLE Disposition: HOME/ ROUTINE
[2018-06-13] MEDS: (Novolin R) Insulin Human Regular 100 units/ml vial SC SCH ×4 (07:22→22:07)
[2018-06-13 07:26] LABS: BASO % 0.7 % (0.0-2.0); EOS # 0.2 K/uL (0.0-0.7); EOS % 4.1 % (0.0-4.0); HEMOGLOBIN 8.8 g/dL (11.0-16.0); LYMPH # 1.4 K/uL (1.0-4.3); LYMPH % 30.2 % (20.0-40.0); MEAN CORPUSCULAR HEMOGLOBIN 30.1 pg (27.0-31.0); MEAN CORPUSCULAR HGB CONC 34.2 g/dL (33.0-37.0); MEAN PLATELET VOLUME 7.7 fL (7.2-11.7); MONO # 0.3 K/uL (0.0-0.8); MONO % 6.6 % (0.0-10.0); NEUT # 2.7 K/uL (1.8-7.0); NEUT % 58.4 % (50.0-75.0); RBC 2.91 Mil/uL (3.80-5.20); RED CELL DISTRIBUTION WIDTH 13.3 % (11.5-14.5); WHITE BLOOD COUNT 4.6 K/uL (4.8-10.8)
--- NOTE | 2018-06-13 07:32 | CP.PCM.PN ---
Subjective - Date & Time of Evaluation Date of Evaluation: 06/13/18 Time of Evaluation: 07:00 - Subjective Subjective: Pt seen and examined, no new complaints at this time. Objective - Vital Signs/Intake and Output Vital Signs (last 24 hours): Temp Pulse Resp BP Pulse Ox 98.4 F 72 20 123/62 98 06/12/18 23:15 06/13/18 04:18 06/12/18 23:15 06/12/18 23:15 06/12/18 23:15 Intake and Output: 06/13/18 06/13/18 06:59 18:59 Intake Total 120 Balance 120 - Medications Medications: Current Medications Amlodipine Besylate (Norvasc) 10 mg PO DAILY [facility] Last Admin: 06/12/18 09:48 Dose: 10 mg Aspirin (Aspirin Chewable) 81 mg PO DAILY [facility] Last Admin: 06/12/18 09:49 Dose: 81 mg Carvedilol (Coreg) 6.25 mg PO BID [facility] Last Admin: 06/12/18 17:40 Dose: 6.25 mg Dextrose (Dextrose 50% Inj) 0 ml IV STAT PRN; Protocol PRN Reason: Hypoglycemia Protocol Dextrose (Glutose 15) 0 gm PO ONCE PRN; Protocol PRN Reason: Hypoglycemia Protocol Divalproex Sodium (Depakote Dr) 250 mg PO BID [facility] Last Admin: 06/12/18 17:40 Dose: 250 mg Ferrous Sulfate (Feosol) 325 mg PO BID [facility] Last Admin: 06/12/18 17:40 Dose: 325 mg Furosemide (Lasix) 40 mg PO DAILY [facility] Glucagon (Glucagen Diagnostic Kit) 0 mg IM STAT PRN; Protocol PRN Reason: Hypoglycemia Protocol Heparin Sodium (Porcine) (Heparin) 5,000 units SC Q12 [facility] Last Admin: 06/12/18 21:20 Dose: 5,000 units Hydralazine HCl (Apresoline) 50 mg PO BID [facility] Last Admin: 06/12/18 17:40 Dose: 50 mg Dextrose (Dextrose 5% In Water 1000 Ml) 1,000 mls @ 0 mls/hr IV .Q0M PRN; Protocol PRN Reason: Hypoglycemia Protocol Influenza Virus Vaccine (Flucelvax Quad 2223-2003 Syr) 60 mcg IM .ONCE ONE Stop: 06/13/18 14:01 Insulin Human Regular (Novolin R) 0 [facility] SC [facility]; Protocol Last Admin: 06/13/18 07:22 Dose: Not Given Losartan Potassium (Cozaar) 100 mg PO DAILY [facility] Last Admin: 06/12/18 09:48 Dose: 100 mg Pneumococcal Polyvalent Vaccine (Pneumovax 23 Vaccine) 0.5 ml IM .ONCE ONE Stop: 06/13/18 14:01 Risperidone (Risperdal Tab) 2 mg PO [facility] Last Admin: 06/12/18 21:21 Dose: 2 mg Rosuvastatin Calcium (Crestor) 5 mg PO [facility] Last Admin: 06/12/18 21:20 Dose: 5 mg Sertraline HCl (Zoloft) 100 mg PO [facility] Last Admin: 06/12/18 21:21 Dose: 100 mg - Labs Labs: 06/13/18 07:04 06/12/18 09:09 PT 13.1 SECONDS (9.7-12.2) H 06/09/18 17:52 INR 1.2 06/09/18 17:52 APTT 29 SECONDS (21-34) 06/09/18 17:52 - Constitutional Appears: No Acute Distress - Head Exam Head Exam: ATRAUMATIC, NORMOCEPHALIC - Eye Exam Eye Exam: EOMI - ENT Exam ENT Exam: Mucous Membranes Moist - Neck Exam Neck Exam: Full ROM - Respiratory Exam Respiratory Exam: Clear to Ausculation Bilateral, NORMAL BREATHING PATTERN. absent: Accessory Muscle Use, Respiratory Distress - Cardiovascular Exam Cardiovascular Exam: RRR, +S1, +S2. absent: Diastolic murmur, Murmur - GI/Abdominal Exam GI & Abdominal Exam: Soft, Normal Bowel Sounds. absent: Tenderness - Extremities Exam Extremities Exam: Full ROM. absent: Calf Tenderness, Pedal Edema - Neurological Exam Neurological Exam: Alert, Awake, Oriented x3 - Psychiatric Exam Psychiatric exam: Normal Affect, Normal Mood - Skin Skin Exam: Dry, Normal Color, Warm Assessment and Plan - Assessment and Plan (Free Text) Assessment: (1) CHF (congestive heart failure) Status: Acute (2) Chronic anemia Status: Acute (3) Pleural effusion Status: Acute (4) HTN (hypertension) Status: Chronic (5) TRISTON (acute kidney injury) Status: Acute Plan: CHF exacerbation Chronic anemia Pleural effusion HTN TRISTON Trop 06/09 negative x3 HA1C 6.4 BNP 06/09 5240, 06/10 5940, 06/11 3700 EKG 06/[address] or T wave abnormalities ECHO 48%, mild/mod AR Cardiac cath tomorrow 06/14/18 Medications amlodipine ASA coreg lasix 40mg IVP daily mitchell rasheed Pt seen, examined, assessment and plan discussed with Dr Evelio Potts PGY1
[2018-06-13 07:39] LABS: ALB/GLOB RATIO 1.1 (1.0-2.1); CALCIUM 8.8 mg/dl (8.6-10.4)
[2018-06-13] MEDS: Divalproex 250 mg DR Tab PO SCH ×2 (09:20→18:58)
--- NOTE | 2018-06-13 09:26 | CP.PCM.PN ---
<Lobito Lopez - Last Filed: 06/13/18 14:10> Subjective - Date & Time of Evaluation Date of Evaluation: 06/13/18 Time of Evaluation: 09:26 - Subjective Subjective: PGY-1 Medicine Progress Note for Dr. Phelps Patient seen and examined sitting by bedside, in no acute distress. No overnight events reported. Denies any chest pain, palpitations, sob, n/v/d/c. 12 pt ROS reviewed and otherwise negative. Patient was made aware of plans for cardiac catheterization, as per Dr. Fraser. Risks and benefits were explained to her in [place], and patient was amenable to procedure. Objective - Vital Signs/Intake and Output Vital Signs (last 24 hours): Temp Pulse Resp BP Pulse Ox 98.1 F 83 20 163/79 H 95 06/13/18 07:00 06/13/18 09:21 06/13/18 09:21 06/13/18 09:20 06/13/18 09:21 Intake and Output: 06/13/18 06/13/18 06:59 18:59 Intake Total 120 Balance 120 - Medications Medications: Current Medications Amlodipine Besylate (Norvasc) 10 mg PO DAILY [facility] Last Admin: 06/13/18 09:20 Dose: 10 mg Aspirin (Aspirin Chewable) 81 mg PO DAILY [facility] Last Admin: 06/13/18 09:20 Dose: 81 mg Carvedilol (Coreg) 6.25 mg PO BID [facility] Last Admin: 06/13/18 09:20 Dose: 6.25 mg Dextrose (Dextrose 50% Inj) 0 ml IV STAT PRN; Protocol PRN Reason: Hypoglycemia Protocol Dextrose (Glutose 15) 0 gm PO ONCE PRN; Protocol PRN Reason: Hypoglycemia Protocol Divalproex Sodium (Depakote Dr) 250 mg PO BID [facility] Last Admin: 06/13/18 09:20 Dose: 250 mg Ferrous Sulfate (Feosol) 325 mg PO BID [facility] Last Admin: 06/13/18 09:20 Dose: 325 mg Furosemide (Lasix) 40 mg PO DAILY [facility] Last Admin: 06/13/18 09:20 Dose: 40 mg Glucagon (Glucagen Diagnostic Kit) 0 mg IM STAT PRN; Protocol PRN Reason: Hypoglycemia Protocol Heparin Sodium (Porcine) (Heparin) 5,000 units SC Q12 [facility] Last Admin: 06/13/18 09:20 Dose: 5,000 units Hydralazine HCl (Apresoline) 50 mg PO BID [facility] Last Admin: 06/13/18 09:20 Dose: 50 mg Dextrose (Dextrose 5% In Water 1000 Ml) 1,000 mls @ 0 mls/hr IV .Q0M PRN; Protocol PRN Reason: Hypoglycemia Protocol Influenza Virus Vaccine (Flucelvax Quad 3628-7123 Syr) 60 mcg IM .ONCE ONE Stop: 06/13/18 14:01 Insulin Human Regular (Novolin R) 0 unit SC [facility]; Protocol Last Admin: 06/13/18 07:22 Dose: Not Given Losartan Potassium (Cozaar) 100 mg PO DAILY [facility] Last Admin: 06/13/18 09:20 Dose: 100 mg Pneumococcal Polyvalent Vaccine (Pneumovax 23 Vaccine) 0.5 ml IM .ONCE ONE Stop: 06/13/18 14:01 Risperidone (Risperdal Tab) 2 mg PO [facility] Last Admin: 06/12/18 21:21 Dose: 2 mg Rosuvastatin Calcium (Crestor) 5 mg PO [facility] Last Admin: 06/12/18 21:20 Dose: 5 mg Sertraline HCl (Zoloft) 100 mg PO [facility] Last Admin: 06/12/18 21:21 Dose: 100 mg - Labs Labs: 06/13/18 07:04 06/13/18 07:04 PT 13.1 SECONDS (9.7-12.2) H 06/09/18 17:52 INR 1.2 06/09/18 17:52 APTT 29 SECONDS (21-34) 06/09/18 17:52 - Constitutional Appears: Non-toxic, No Acute Distress - Head Exam Head Exam: ATRAUMATIC, NORMAL INSPECTION, NORMOCEPHALIC - Eye Exam Eye Exam: EOMI, Normal appearance, PERRL Pupil Exam: NORMAL ACCOMODATION - ENT Exam ENT Exam: Mucous Membranes Moist, Normal Exam - Neck Exam Neck Exam: Full ROM, Normal Inspection. absent: Tenderness - Respiratory Exam Respiratory Exam: Clear to Ausculation Bilateral, NORMAL BREATHING PATTERN. absent: Accessory Muscle Use, Rales, Rhonchi, Wheezes, Respiratory Distress, Stridor - Cardiovascular Exam Cardiovascular Exam: REGULAR RHYTHM, +S1, +S2 - GI/Abdominal Exam GI & Abdominal Exam: Soft, Normal Bowel Sounds. absent: Distended, Firm, Guarding, Rigid, Tenderness, Rebound - Extremities Exam Extremities Exam: Full ROM, Normal Capillary Refill, Normal Inspection. absent: Calf Tenderness, Pedal Edema - Back Exam Back Exam: NORMAL INSPECTION - Neurological Exam Neurological Exam: Alert, Awake, Normal Gait, Oriented x3 - Skin Skin Exam: Dry, Intact, Normal Color, Warm Assessment and Plan - Assessment and Plan (Free Text) Assessment: 58 year old F with PMH HFpEF, IDDM2, HTN, HLD, schizophrenia, depression who presents to ED with a 1 week history of worsening back pain and chest pain. Plan: CHF exacerbation Hx of HFpEF and Renal insufficiency -pt in no acute distress, chest pain subsided -serial troponins wnl -BNP 5240 on admission -EKG (06/10): NSR 82 bpm -Cardiology (Dr. Fraser) on case -plans for cardiac cath tomorrow (06/14) -CXR (06/10): elliptical shaped opacity in R medial lung base representing atelectasis and/or infiltrate. minimal linear atelectasis LLL field suspect small b/l effusions -Pt has had thoracentesis during last admission in late April -Echo (04/2018): LVH, 55-60% EF, Mild AR, Mild pulmonary hypertension, mild to mo derate AR, Grade I abnormal relaxation pattern. -Lasix 40 IV daily: held for cardiac cath tomorrow given CKD -Coreg 6.25 mg PO BID -Losartan 100 mg PO daily: held for cardiac cath tomorrow given CKD -Norvasc 10 mg PO daily Hypertensive urgency, improved -SBP continues to run in 170s today -pt asymptomatic, continue to monitor -Losartan 100 mg PO daily -Norvasc 10 mg PO daily -Coreg increased to 6.25 mg PO BID per Nephrology (06/12) -added hydralazine 50 mg PO BID (06/12) CKD stage 4 -BUN/Cr is 41/2.7 (06/12) -GFR is 22, similar to prior GFRs in the past -total urine protein excretion elevated -Nephrology recs (Dr. Bey) appreciated Hx of IDDM2 -A1C 6.4 -ISS low -Accucheck ACHS -hypoglycemic protocol Hx of HLD -Crestor 5 mg PO QHS Hx of schizophrenia, depression -Risperdal 2 mg PO QHS -Sertraline 100 mg PO QHS -Depakote 250 mg PO BID Hx of iron deficiency anemia -H/H 9.8/28.4 (3/) -Hgb ranges from 8-10 in the past, no signs of acute bleeding on admission -c/w ferrous sulfate 325 mg PO BID Ppx, Diet, Disposition -DVT ppx: scds, heparin--held for cardiac cath tomorrow -GI ppx: not indicated at this time -Diet: NPO after MN Dispo: NPO after MN for cardiac cath tomorrow (06/13) as per Dr. Fraser Case discussed with Dr. Mattie Lopez DO, PGY-1 <Sae Phelps H - Last Filed: 06/13/18 15:42> Objective - Vital Signs/Intake and Output Vital Signs (last 24 hours): Temp Pulse Resp BP Pulse Ox 98.1 F 75 20 163/79 H 95 06/13/18 07:00 06/13/18 13:50 06/13/18 09:21 06/13/18 09:20 06/13/18 09:21 Intake and Output: 06/13/18 06/13/18 06:59 18:59 Intake Total 120 Balance 120 - Medications Medications: Current Medications Amlodipine Besylate (Norvasc) 10 mg PO DAILY [facility] Last Admin: 06/13/18 09:20 Dose: 10 mg Aspirin (Aspirin Chewable) 81 mg PO DAILY [facility] Last Admin: 06/13/18 09:20 Dose: 81 mg Carvedilol (Coreg) 6.25 mg PO BID [facility] Last Admin: 06/13/18 09:20 Dose: 6.25 mg Dextrose (Dextrose 50% Inj) 0 ml IV STAT PRN; Protocol PRN Reason: Hypoglycemia Protocol Dextrose (Glutose 15) 0 gm PO ONCE PRN; Protocol PRN Reason: Hypoglycemia Protocol Divalproex Sodium (Depakote Dr) 250 mg PO BID [facility] Last Admin: 06/13/18 09:20 Dose: 250 mg Ferrous Sulfate (Feosol) 325 mg PO BID [facility] Last Admin: 06/13/18 09:20 Dose: 325 mg Furosemide (Lasix) 40 mg PO DAILY [facility] Last Admin: 06/13/18 09:20 Dose: 40 mg Glucagon (Glucagen Diagnostic Kit) 0 mg IM STAT PRN; Protocol PRN Reason: Hypoglycemia Protocol Heparin Sodium (Porcine) (Heparin) 5,000 units SC Q12 [facility] Last Admin: 06/13/18 09:20 Dose: 5,000 units Hydralazine HCl (Apresoline) 50 mg PO BID [facility] Last Admin: 06/13/18 09:20 Dose: 50 mg Dextrose (Dextrose 5% In Water 1000 Ml) 1,000 mls @ 0 mls/hr IV .Q0M PRN; Protocol PRN Reason: Hypoglycemia Protocol Insulin Human Regular (Novolin R) 0 unit SC [facility]; Protocol Last Admin: 06/13/18 12:23 Dose: 3 unit Losartan Potassium (Cozaar) 100 mg PO DAILY [facility] Last Admin: 06/13/18 09:20 Dose: 100 mg Risperidone (Risperdal Tab) 2 mg PO HS [facility] Last Admin: 06/12/18 21:21 Dose: 2 mg Rosuvastatin Calcium (Crestor) 5 mg PO HS [facility] Last Admin: 06/12/18 21:20 Dose: 5 mg Sertraline HCl (Zoloft) 100 mg PO HS [facility] Last Admin: 06/12/18 21:21 Dose: 100 mg - Labs Labs: 06/13/18 07:04 06/13/18 07:04 PT 13.1 SECONDS (9.7-12.2) H 06/09/18 17:52 INR 1.2 06/09/18 17:52 APTT 29 SECONDS (21-34) 06/09/18 17:52 Attending/Attestation - Attestation I have personally seen and examined this patient.: Yes I have fully participated in the care of the patient.: Yes I have reviewed all pertinent clinical information, including history, physical exam and plan: Yes Notes (Text): 06/13/18 15:40 Medical attending: Patient was seen and examined by me. Agree with the above note by the resident The patient was not in any acute distress when I came and saw her. She reported improvement and like yesterday she is able to walk without having symptoms There is a pending cardiac catherization for tommorow, discussed with cardiology the elevated creatine/CKD history and they are aware and are planning on very minimal use of contrast Sae Phelps
--- NOTE | 2018-06-13 10:38 | CP.PCM.PN ---
Subjective - Date & Time of Evaluation Date of Evaluation: 06/13/18 Time of Evaluation: 10:35 - Subjective Subjective: afebrile bp stable renal function stable with creatinine 2.9 comfortable in chair wants to go home ROS No fever No sob or cough No cherst pain no abd pain n,v,d no dysuria no headacke Objective - Vital Signs/Intake and Output Vital Signs (last 24 hours): Temp Pulse Resp BP Pulse Ox 98.1 F 83 20 163/79 H 95 06/13/18 07:00 06/13/18 09:21 06/13/18 09:21 06/13/18 09:20 06/13/18 09:21 Intake and Output: 06/13/18 06/13/18 06:59 18:59 Intake Total 120 Balance 120 - Medications Medications: Current Medications Amlodipine Besylate (Norvasc) 10 mg PO DAILY [facility] Last Admin: 06/13/18 09:20 Dose: 10 mg Aspirin (Aspirin Chewable) 81 mg PO DAILY [facility] Last Admin: 06/13/18 09:20 Dose: 81 mg Carvedilol (Coreg) 6.25 mg PO BID [facility] Last Admin: 06/13/18 09:20 Dose: 6.25 mg Dextrose (Dextrose 50% Inj) 0 ml IV STAT PRN; Protocol PRN Reason: Hypoglycemia Protocol Dextrose (Glutose 15) 0 gm PO ONCE PRN; Protocol PRN Reason: Hypoglycemia Protocol Divalproex Sodium (Depakote Dr) 250 mg PO BID [facility] Last Admin: 06/13/18 09:20 Dose: 250 mg Ferrous Sulfate (Feosol) 325 mg PO BID [facility] Last Admin: 06/13/18 09:20 Dose: 325 mg Furosemide (Lasix) 40 mg PO DAILY [facility] Last Admin: 06/13/18 09:20 Dose: 40 mg Glucagon (Glucagen Diagnostic Kit) 0 mg IM STAT PRN; Protocol PRN Reason: Hypoglycemia Protocol Heparin Sodium (Porcine) (Heparin) 5,000 units SC Q12 [facility] Last Admin: 06/13/18 09:20 Dose: 5,000 units Hydralazine HCl (Apresoline) 50 mg PO BID [facility] Last Admin: 06/13/18 09:20 Dose: 50 mg Dextrose (Dextrose 5% In Water 1000 Ml) 1,000 mls @ 0 mls/hr IV .Q0M PRN; Protocol PRN Reason: Hypoglycemia Protocol Influenza Virus Vaccine (Flucelvax Quad [id number] Syr) 60 mcg IM .ONCE ONE Stop: 06/13/18 14:01 Insulin Human Regular (Novolin R) 0 unit SC [facility]; Protocol Last Admin: 06/13/18 07:22 Dose: Not Given Losartan Potassium (Cozaar) 100 mg PO DAILY [facility] Last Admin: 06/13/18 09:20 Dose: 100 mg Pneumococcal Polyvalent Vaccine (Pneumovax 23 Vaccine) 0.5 ml IM .ONCE ONE Stop: 06/13/18 14:01 Risperidone (Risperdal Tab) 2 mg PO HS [facility] Last Admin: 06/12/18 21:21 Dose: 2 mg Rosuvastatin Calcium (Crestor) 5 mg PO HS [facility] Last Admin: 06/12/18 21:20 Dose: 5 mg Sertraline HCl (Zoloft) 100 mg PO [facility] Last Admin: 06/12/18 21:21 Dose: 100 mg - Labs Labs: 06/13/18 07:04 06/13/18 07:04 PT 13.1 SECONDS (9.7-12.2) H 06/09/18 17:52 INR 1.2 06/09/18 17:52 APTT 29 SECONDS (21-34) 06/09/18 17:52 - Constitutional Appears: No Acute Distress - Eye Exam Eye Exam: Normal appearance - ENT Exam ENT Exam: Mucous Membranes Moist - Respiratory Exam Respiratory Exam: Clear to Ausculation Bilateral, NORMAL BREATHING PATTERN Additional comments: dimished sounds at bases - Cardiovascular Exam Cardiovascular Exam: REGULAR RHYTHM - GI/Abdominal Exam GI & Abdominal Exam: Soft. absent: Distended, Tenderness - Extremities Exam Extremities Exam: absent: Calf Tenderness, Pedal Edema - Back Exam Back Exam: absent: CVA tenderness (L), CVA tenderness (R) - Psychiatric Exam Psychiatric exam: Normal Mood - Skin Skin Exam: Dry, Warm Assessment and Plan (1) CKD stage 4 due to type 2 diabetes mellitus Status: Acute (2) Fluid overload Status: Acute (3) Pleural effusion Status: Acute (4) Cardiorenal syndrome Status: Acute - Assessment and Plan (Free Text) Plan: case discussed with medical team cardiac cath being consisdered if so need to have dangers of cath with ckd which include markell and possible dialysis if proceding with cath would hold arb and if clinically possible diuretics and use least amt dye
[2018-06-13] MEDS ORDERED: Influenza Vaccine 60 mcg/0.5 mL SYR (4YR UP) IM ONE (14:00)
[2018-06-13] MEDS ORDERED: Pneumococcal 23-Valent Vaccine IM ONE (14:00)
--- NOTE | 2018-06-14 07:24 | CP.PCM.PN ---
Subjective - Date & Time of Evaluation Date of Evaluation: 06/14/18 Time of Evaluation: 06:45 - Subjective Subjective: Pt seen and examined this morning. Pt has no new complaints at this time Objective - Vital Signs/Intake and Output Vital Signs (last 24 hours): Temp Pulse Resp BP Pulse Ox 98.1 F 68 20 134/72 97 06/13/18 23:25 06/14/18 04:02 06/13/18 23:25 06/13/18 23:25 06/13/18 23:25 - Medications Medications: Current Medications Amlodipine Besylate (Norvasc) 10 mg PO DAILY [facility] Last Admin: 06/13/18 09:20 Dose: 10 mg Aspirin (Aspirin Chewable) 81 mg PO DAILY [facility] Last Admin: 06/13/18 09:20 Dose: 81 mg Carvedilol (Coreg) 6.25 mg PO BID [facility] Last Admin: 06/13/18 18:58 Dose: 6.25 mg Dextrose (Dextrose 50% Inj) 0 ml IV STAT PRN; Protocol PRN Reason: Hypoglycemia Protocol Dextrose (Glutose 15) 0 gm PO ONCE PRN; Protocol PRN Reason: Hypoglycemia Protocol Divalproex Sodium (Depakote Dr) 250 mg PO BID [facility] Last Admin: 06/13/18 18:58 Dose: 250 mg Ferrous Sulfate (Feosol) 325 mg PO BID [facility] Last Admin: 06/13/18 18:58 Dose: 325 mg Furosemide (Lasix) 40 mg PO DAILY [facility] Last Admin: 06/13/18 09:20 Dose: 40 mg Glucagon (Glucagen Diagnostic Kit) 0 mg IM STAT PRN; Protocol PRN Reason: Hypoglycemia Protocol Heparin Sodium (Porcine) (Heparin) 5,000 units SC Q12 [facility] Last Admin: 06/13/18 09:20 Dose: 5,000 units Hydralazine HCl (Apresoline) 50 mg PO BID [facility] Last Admin: 06/13/18 18:57 Dose: 50 mg Dextrose (Dextrose 5% In Water 1000 Ml) 1,000 mls @ 0 mls/hr IV .Q0M PRN; Protocol PRN Reason: Hypoglycemia Protocol Insulin Human Regular (Novolin R) 0 unit SC ACHS [facility]; Protocol Last Admin: 06/13/18 22:07 Dose: Not Given Losartan Potassium (Cozaar) 100 mg PO DAILY [facility] Last Admin: 06/13/18 09:20 Dose: 100 mg Risperidone (Risperdal Tab) 2 mg PO [facility] Last Admin: 06/13/18 22:05 Dose: 2 mg Rosuvastatin Calcium (Crestor) 5 mg PO [facility] Last Admin: 06/13/18 22:05 Dose: 5 mg Sertraline HCl (Zoloft) 100 mg PO [facility] Last Admin: 06/13/18 22:05 Dose: 100 mg - Labs Labs: 06/13/18 07:04 06/13/18 07:04 PT 13.1 SECONDS (9.7-12.2) H 06/09/18 17:52 INR 1.2 06/09/18 17:52 APTT 29 SECONDS (21-34) 06/09/18 17:52 - Constitutional Appears: No Acute Distress - Head Exam Head Exam: ATRAUMATIC, NORMOCEPHALIC - Eye Exam Eye Exam: EOMI - ENT Exam ENT Exam: Mucous Membranes Moist - Neck Exam Neck Exam: Full ROM - Respiratory Exam Respiratory Exam: Clear to Ausculation Bilateral, NORMAL BREATHING PATTERN. absent: Accessory Muscle Use, Respiratory Distress - Cardiovascular Exam Cardiovascular Exam: RRR, +S1, +S2. absent: Diastolic murmur, Murmur - GI/Abdominal Exam GI & Abdominal Exam: Soft, Normal Bowel Sounds. absent: Tenderness - Extremities Exam Extremities Exam: Full ROM. absent: Pedal Edema - Neurological Exam Neurological Exam: Alert, Awake, Oriented x3 - Psychiatric Exam Psychiatric exam: Normal Affect, Normal Mood - Skin Skin Exam: Dry, Normal Color, Warm Assessment and Plan - Assessment and Plan (Free Text) Assessment: (1) CHF (congestive heart failure) Status: Acute (2) Chronic anemia Status: Acute (3) Pleural effusion Status: Acute (4) HTN (hypertension) Status: Chronic (5) TRISTON (acute kidney injury) Status: Acute Plan: CHF exacerbation Chronic anemia Pleural effusion HTN TRISTON Trop 06/09 negative x3 HA1C 6.4 BNP 06/09 5240, 06/10 5940, 06/11 3700 EKG 06/[address] or T wave abnormalities ECHO 48%, mild/mod AR Cardiac cath 06/14/18: lesions found in LAD, RCA, Circ and OM. Pt scheduled at [facility] for intervention, Tuesday06/16/18. lasix and cozaar were held for procedure Medications amlodipine ASA coreg hydralazine crestor Pt seen, examined, assessment and plan discussed with Dr Evelio Potts PGY1
--- NOTE | 2018-06-14 07:37 | CP.PCM.PN ---
<Lobito Lopez - Last Filed: 06/14/18 15:54> Subjective - Date & Time of Evaluation Date of Evaluation: 06/14/18 Time of Evaluation: 07:37 - Subjective Subjective: PGY-1 Medicine Progress Note for Dr. Phelps Patient seen and examined at bedside, in no acute distress. No acute overnight events reported. Patient is scheduled for cardiac cath procedure this AM, patient aware of plans. Objective - Vital Signs/Intake and Output Vital Signs (last 24 hours): Temp Pulse Resp BP Pulse Ox 98.1 F 68 20 134/72 97 06/13/18 23:25 06/14/18 04:02 06/13/18 23:25 06/13/18 23:25 06/13/18 23:25 - Medications Medications: Current Medications Amlodipine Besylate (Norvasc) 10 mg PO DAILY [facility] Last Admin: 06/13/18 09:20 Dose: 10 mg Aspirin (Aspirin Chewable) 81 mg PO DAILY [facility] Last Admin: 06/13/18 09:20 Dose: 81 mg Carvedilol (Coreg) 6.25 mg PO BID [facility] Last Admin: 06/13/18 18:58 Dose: 6.25 mg Dextrose (Dextrose 50% Inj) 0 ml IV STAT PRN; Protocol PRN Reason: Hypoglycemia Protocol Dextrose (Glutose 15) 0 gm PO ONCE PRN; Protocol PRN Reason: Hypoglycemia Protocol Divalproex Sodium (Depakote Dr) 250 mg PO BID [facility] Last Admin: 06/13/18 18:58 Dose: 250 mg Ferrous Sulfate (Feosol) 325 mg PO BID [facility] Last Admin: 06/13/18 18:58 Dose: 325 mg Furosemide (Lasix) 40 mg PO DAILY [facility] Last Admin: 06/13/18 09:20 Dose: 40 mg Glucagon (Glucagen Diagnostic Kit) 0 mg IM STAT PRN; Protocol PRN Reason: Hypoglycemia Protocol Heparin Sodium (Porcine) (Heparin) 5,000 units SC Q12 [facility] Last Admin: 06/13/18 09:20 Dose: 5,000 units Hydralazine HCl (Apresoline) 50 mg PO BID [facility] Last Admin: 06/13/18 18:57 Dose: 50 mg Dextrose (Dextrose 5% In Water 1000 Ml) 1,000 mls @ 0 mls/hr IV .Q0M PRN; Protocol PRN Reason: Hypoglycemia Protocol Insulin Human Regular (Novolin R) 0 unit SC [facility]; Protocol Last Admin: 06/13/18 22:07 Dose: Not Given Losartan Potassium (Cozaar) 100 mg PO DAILY [facility] Last Admin: 06/13/18 09:20 Dose: 100 mg Risperidone (Risperdal Tab) 2 mg PO [facility] Last Admin: 06/13/18 22:05 Dose: 2 mg Rosuvastatin Calcium (Crestor) 5 mg PO [facility] Last Admin: 06/13/18 22:05 Dose: 5 mg Sertraline HCl (Zoloft) 100 mg PO [facility] Last Admin: 06/13/18 22:05 Dose: 100 mg - Labs Labs: 06/13/18 07:04 06/13/18 07:04 PT 13.1 SECONDS (9.7-12.2) H 06/09/18 17:52 INR 1.2 06/09/18 17:52 APTT 29 SECONDS (21-34) 06/09/18 17:52 - Constitutional Appears: Non-toxic, No Acute Distress - Head Exam Head Exam: ATRAUMATIC, NORMAL INSPECTION, NORMOCEPHALIC - Eye Exam Eye Exam: EOMI, Normal appearance, PERRL Pupil Exam: NORMAL ACCOMODATION - ENT Exam ENT Exam: Mucous Membranes Moist, Normal Exam - Neck Exam Neck Exam: Full ROM, Normal Inspection. absent: Tenderness - Respiratory Exam Respiratory Exam: Clear to Ausculation Bilateral, NORMAL BREATHING PATTERN. absent: Accessory Muscle Use, Rales, Rhonchi, Wheezes, Respiratory Distress, Stridor - Cardiovascular Exam Cardiovascular Exam: REGULAR RHYTHM, +S1, +S2 - GI/Abdominal Exam GI & Abdominal Exam: Soft, Normal Bowel Sounds. absent: Distended, Firm, Guarding, Rigid, Tenderness, Rebound - Extremities Exam Extremities Exam: Full ROM, Normal Capillary Refill, Normal Inspection. absent: Calf Tenderness, Pedal Edema - Back Exam Back Exam: NORMAL INSPECTION - Neurological Exam Neurological Exam: Alert, Awake, Normal Gait, Oriented x3 - Skin Skin Exam: Dry, Intact, Normal Color, Warm Assessment and Plan - Assessment and Plan (Free Text) Assessment: 58 year old F with PMH HFpEF, IDDM2, HTN, HLD, schizophrenia, depression who presents to ED with a 1 week history of worsening back pain and chest pain. Plan: CHF exacerbation Hx of HFpEF and Renal insufficiency -pt in no acute distress, chest pain subsided -serial troponins wnl -BNP 5240 on admission -EKG (06/10): NSR 82 bpm -Cardiology (Dr. Fraser) on case -cardiac cath performed today: lesions found in LAD, RCA, Circ and OM -f/u official cath report -PCI scheduled at [facility] for Friday 06/16 -CXR (06/10): elliptical shaped opacity in R medial lung base representing atelectasis and/or infiltrate. minimal linear atelectasis LLL field suspect small b/l effusions -Pt has had thoracentesis during last admission in late April -Echo (04/2018): LVH, 55-60% EF, Mild AR, Mild pulmonary hypertension, mild to moderate AR, Grade I abnormal relaxation pattern. -Lasix 40 IV daily: held -Coreg 6.25 mg PO BID -Losartan 100 mg PO daily -Norvasc 10 mg PO daily Hypertensive urgency, improved -pt asymptomatic, continue to monitor -Losartan 100 mg PO daily held -Norvasc 10 mg PO daily -Coreg 6.25 mg PO BID -Hydralazine 50 mg PO BID CKD stage 4 -Cr 2.9, continue to monitor -total urine protein excretion elevated -Nephrology recs (Dr. Bey) appreciated -lasix held for PCI as pt is at risk for contrast nephropathy Hx of IDDM2 -A1C 6.4 -ISS low -Accucheck ACHS -hypoglycemic protocol Hx of HLD -Crestor 5 mg PO QHS Hx of schizophrenia, depression -Risperdal 2 mg PO QHS -Sertraline 100 mg PO QHS -Depakote 250 mg PO BID Hx of iron deficiency anemia -Hgb ranges from 8-10 in the past, no signs of acute bleeding on admission -c/w ferrous sulfate 325 mg PO BID Ppx, Diet, Disposition -DVT ppx: scds, heparin--held for cardiac cath tomorrow -GI ppx: not indicated at this time -Diet: regular diet Dispo: pt scheduled for PCI at [facility] Friday 06/16. Lasix, Losartan held as patient is at risk for contrast nephropathy Case discussed with Dr. Mattie Lopez DO, PGY-1 <Sae Phelps - Last Filed: 06/14/18 17:23> Objective - Vital Signs/Intake and Output Vital Signs (last 24 hours): Temp Pulse Resp BP Pulse Ox 98.4 F 77 20 167/79 H 99 06/14/18 15:15 06/14/18 15:15 06/14/18 15:15 06/14/18 15:15 06/14/18 15:15 Intake and Output: 06/14/18 06/14/18 06:59 18:59 Intake Total 2084 Output Total 300 Balance 1784 - Medications Medications: Current Medications Amlodipine Besylate (Norvasc) 10 mg PO DAILY [facility] Last Admin: 06/14/18 13:12 Dose: 10 mg Aspirin (Aspirin Chewable) 81 mg PO DAILY [facility] Last Admin: 06/14/18 13:11 Dose: 81 mg Carvedilol (Coreg) 6.25 mg PO BID [facility] Last Admin: 06/14/18 10:00 Dose: Not Given Dextrose (Dextrose 50% Inj) 0 ml IV STAT PRN; Protocol PRN Reason: Hypoglycemia Protocol Dextrose (Glutose 15) 0 gm PO ONCE PRN; Protocol PRN Reason: Hypoglycemia Protocol Divalproex Sodium (Depakote Dr) 250 mg PO BID [facility] Last Admin: 06/14/18 10:00 Dose: Not Given Ferrous Sulfate (Feosol) 325 mg PO BID [facility] Last Admin: 06/14/18 10:00 Dose: Not Given Furosemide (Lasix) 40 mg PO DAILY [facility] Last Admin: 06/13/18 09:20 Dose: 40 mg Glucagon (Glucagen Diagnostic Kit) 0 mg IM STAT PRN; Protocol PRN Reason: Hypoglycemia Protocol Heparin Sodium (Porcine) (Heparin) 5,000 units SC Q12 [facility] Last Admin: 06/13/18 09:20 Dose: 5,000 units Hydralazine HCl (Apresoline) 50 mg PO BID [facility] Last Admin: 06/14/18 10:00 Dose: Not Given Dextrose (Dextrose 5% In Water 1000 Ml) 1,000 mls @ 0 mls/hr IV .Q0M PRN; Protocol PRN Reason: Hypoglycemia Protocol Sodium Chloride (Sodium Chloride 0.9%) 1,000 mls @ 100 mls/hr IV .Q10H [facility] Last Admin: 06/14/18 13:12 Dose: 100 mls/hr Insulin Human Regular (Novolin R) 0 unit SC ACHS [facility]; Protocol Last Admin: 06/14/18 16:51 Dose: Not Given Losartan Potassium (Cozaar) 100 mg PO DAILY [facility] Last Admin: 06/13/18 09:20 Dose: 100 mg Risperidone (Risperdal Tab) 2 mg PO HS [facility] Last Admin: 06/13/18 22:05 Dose: 2 mg Rosuvastatin Calcium (Crestor) 5 mg PO HS [facility] Last Admin: 06/13/18 22:05 Dose: 5 mg Sertraline HCl (Zoloft) 100 mg PO HS [facility] Last Admin: 06/13/18 22:05 Dose: 100 mg - Labs Labs: 06/14/18 07:20 06/14/18 07:20 PT 13.1 SECONDS (9.7-12.2) H 06/09/18 17:52 INR 1.2 06/09/18 17:52 APTT 29 SECONDS (21-34) 06/09/18 17:52 Attending/Attestation - Attestation I have personally seen and examined this patient.: Yes I have fully participated in the care of the patient.: Yes I have reviewed all pertinent clinical information, including history, physical exam and plan: Yes Notes (Text): 06/14/18 17:21 Medical attending: Patient was seen and examined by me. Agree with the above note by the resident The patient was not in any acute distress when we came and saw this morning and she shortly thereafter went to have cardiac catherization done There were signifigant findings and she is pending going to [facility] to have stenting done. For the time being we will continue to hold off on the lasix and losartan Sae Phelps
[2018-06-14 07:47] LABS: BASO % 0.5 % (0.0-2.0); EOS # 0.2 K/uL (0.0-0.7); EOS % 2.6 % (0.0-4.0); HEMOGLOBIN 9.3 g/dL (11.0-16.0); LYMPH # 0.9 K/uL (1.0-4.3); LYMPH % 15.1 % (20.0-40.0); MEAN CELL VOLUME 89.1 fL (81.0-99.0); MEAN CORPUSCULAR HEMOGLOBIN 30.1 pg (27.0-31.0); MEAN CORPUSCULAR HGB CONC 33.8 g/dL (33.0-37.0); MEAN PLATELET VOLUME 7.8 fL (7.2-11.7); MONO # 0.3 K/uL (0.0-0.8); MONO % 5.2 % (0.0-10.0); NEUT # 4.7 K/uL (1.8-7.0); NEUT % 76.6 % (50.0-75.0); NRBC % 0.1 % (0.0-2.0); RBC 3.11 Mil/uL (3.80-5.20); RED CELL DISTRIBUTION WIDTH 13.4 % (11.5-14.5); WHITE BLOOD COUNT 6.2 K/uL (4.8-10.8)
[2018-06-14 08:03] LABS: ALB/GLOB RATIO 1.2 (1.0-2.1); ALBUMIN 4.3 g/dL (3.5-5.0); ALT/SGPT < 6 U/L (9-52); AST/SGOT 19 U/L (14-36); BLOOD UREA NITROGEN 49 mg/dL (7-17); CALCIUM 9.1 mg/dl (8.6-10.4); GFR NON-AFRICAN AMERICAN 17
[2018-06-14] MEDS: (Novolin R) Insulin Human Regular 100 units/ml vial SC SCH ×4 (08:19→21:44)
[2018-06-14] MEDS: Divalproex 250 mg DR Tab PO SCH ×2 (10:00→18:36)
[2018-06-14] MEDS ORDERED: Iodixanol 320 MG/ML 200 ML BOTTLE IV ONE (10:11)
[2018-06-14] MEDS ORDERED: Midazolam 2 MG/2 ML VIAL ONE (10:11)
[2018-06-14] MEDS ORDERED: Lidocaine 2% MPF (5 ml) Inj ONE (10:19)
[2018-06-14 10:48] LABS: ARTERIAL BLOOD GAS HEMOGLOBIN 9.9 g/dL (11.7-17.4); ARTERIAL BLOOD GAS O2 SAT 96.2 % (95-98); ARTERIAL BLOOD GAS PCO2 51 mm/Hg (35-45); ARTERIAL BLOOD GAS PH 7.36 (7.35-7.45); ARTERIAL BLOOD GAS PO2 70 mm/Hg (80-100); ARTERIAL BLOOD GAS TCO2 30.4 mmol/L (22-28)
[2018-06-14 10:54] LABS: VENOUS BLOOD GAS BASE EXCESS 0.8 mmol/L (0.0-2.0); VENOUS BLOOD GAS PCO2 49 mmHg (40-60); VENOUS BLOOD GAS PO2 53 mm/Hg (30-55); VENOUS BLOOD PH 7.35 (7.32-7.43)
[2018-06-14] MEDS: Sodium Chloride 0.9% 1,000 ML IV SCH (13:12)
--- NOTE | 2018-06-14 14:44 | CP.PCM.PN ---
Subjective - Date & Time of Evaluation Date of Evaluation: 06/14/18 Time of Evaluation: 14:42 - Subjective Subjective: s/p cardiac cath will need PCI for CAD creat about same HTN controlled has nephrotic range proteinuria Objective - Vital Signs/Intake and Output Vital Signs (last 24 hours): Temp Pulse Resp BP Pulse Ox 97.4 F L 77 20 153/83 H 100 06/14/18 12:48 06/14/18 13:00 06/14/18 07:05 06/14/18 12:48 06/14/18 07:05 - Medications Medications: Current Medications Amlodipine Besylate (Norvasc) 10 mg PO DAILY [facility] Last Admin: 06/14/18 13:12 Dose: 10 mg Aspirin (Aspirin Chewable) 81 mg PO DAILY [facility] Last Admin: 06/14/18 13:11 Dose: 81 mg Carvedilol (Coreg) 6.25 mg PO BID [facility] Last Admin: 06/14/18 10:00 Dose: Not Given Dextrose (Dextrose 50% Inj) 0 ml IV STAT PRN; Protocol PRN Reason: Hypoglycemia Protocol Dextrose (Glutose 15) 0 gm PO ONCE PRN; Protocol PRN Reason: Hypoglycemia Protocol Divalproex Sodium (Depakote Dr) 250 mg PO BID [facility] Last Admin: 06/14/18 10:00 Dose: Not Given Ferrous Sulfate (Feosol) 325 mg PO BID [facility] Last Admin: 06/14/18 10:00 Dose: Not Given Furosemide (Lasix) 40 mg PO DAILY [facility] Last Admin: 06/13/18 09:20 Dose: 40 mg Glucagon (Glucagen Diagnostic Kit) 0 mg IM STAT PRN; Protocol PRN Reason: Hypoglycemia Protocol Heparin Sodium (Porcine) (Heparin) 5,000 units SC Q12 [facility] Last Admin: 06/13/18 09:20 Dose: 5,000 units Hydralazine HCl (Apresoline) 50 mg PO BID [facility] Last Admin: 06/14/18 10:00 Dose: Not Given Dextrose (Dextrose 5% In Water 1000 Ml) 1,000 mls @ 0 mls/hr IV .Q0M PRN; Protocol PRN Reason: Hypoglycemia Protocol Sodium Chloride (Sodium Chloride 0.9%) 1,000 mls @ 100 mls/hr IV .Q10H [facility] Last Admin: 06/14/18 13:12 Dose: 100 mls/hr Insulin Human Regular (Novolin R) 0 unit SC ACHS [facility]; Protocol Last Admin: 06/14/18 12:53 Dose: Not Given Losartan Potassium (Cozaar) 100 mg PO DAILY [facility] Last Admin: 06/13/18 09:20 Dose: 100 mg Risperidone (Risperdal Tab) 2 mg PO [facility] Last Admin: 06/13/18 22:05 Dose: 2 mg Rosuvastatin Calcium (Crestor) 5 mg PO [facility] Last Admin: 06/13/18 22:05 Dose: 5 mg Sertraline HCl (Zoloft) 100 mg PO [facility] Last Admin: 06/13/18 22:05 Dose: 100 mg - Labs Labs: 06/14/18 07:20 06/14/18 07:20 PT 13.1 SECONDS (9.7-12.2) H 06/09/18 17:52 INR 1.2 06/09/18 17:52 APTT 29 SECONDS (21-34) 06/09/18 17:52 - Constitutional Appears: No Acute Distress, Chronically Ill - Head Exam Head Exam: ATRAUMATIC, NORMAL INSPECTION - Eye Exam Eye Exam: EOMI, Normal appearance - Neck Exam Neck Exam: Normal Inspection. absent: Tenderness - Respiratory Exam Respiratory Exam: Clear to Ausculation Bilateral, NORMAL BREATHING PATTERN - Cardiovascular Exam Cardiovascular Exam: REGULAR RHYTHM, +S1 - GI/Abdominal Exam GI & Abdominal Exam: Soft. absent: Tenderness - Extremities Exam Extremities Exam: Normal Inspection. absent: Tenderness - Neurological Exam Neurological Exam: Awake, CN II-XII Intact - Skin Skin Exam: Dry, Warm Assessment and Plan (1) Fluid overload Status: Acute (2) CKD stage 4 due to type 2 diabetes mellitus Status: Acute (3) Proteinuria Status: Acute (4) Chronic anemia Status: Acute (5) Schizophrenia Status: Chronic - Assessment and Plan (Free Text) Assessment: hold ERENDIRA I for PCI patient at risk for contrast nephropathy will need to monitor
--- NOTE | 2018-06-14 18:46 | CARDCATH ---
PROCEDURE DATE: 06/14/2018 INDICATIONS: Florencia Wiggins is a 58-year-old female who presented to [facility] with complaints of chest pain and shortness of breath. She underwent echocardiogram showing mild LV systolic dysfunction. Etiology of her decompensation was unclear and therefore she was [facility] for evaluation of anginal-equivalent symptoms along with new onset of mild CHF. PROCEDURE PERFORMED: Left heart catheterization with selective left and right coronary angiogram, right heart catheterization with hemodynamics and saturations, HEMODYNAMIC FINDINGS AND RIGHT HEART CATHETERIZATION FINDINGS: Pulmonary capillary wedge pressure 34/36/27 of mean. PA pressure was 56/33 with mean of 42. RV pressure of 56/60 with RVEDP of 20. RA pressure of 24/20 with a mean of 19. LV pressure is 173/16 with ADP of 26. LEFT CORONARY SYSTEM: The left main was with a bifurcation to the left anterior descending and left circumflex coronary artery. LAD has a mid high-grade 85-90% stenosis at the bifurcation of the diagonal gives off small size diagonal branches, left circumflex is a large-sized vessel that runs in the AV groove free of any obstructive disease. RCA is a large-sided vessel with right-dominant circulation free of any obstructive disease. Left ventricular ejection fraction is 40-45%. IMPRESSION: Severe mid-left anterior descending artery high-grade stenosis. Mild left ventricular systolic dysfunction. Mild pulmonary hypertension. Mildly elevated systolic pressure. RECOMMENDATIONS: The patient is to undergo a staged intervention of the mid-LAD. Keep the patient on guideline-directed therapy for CHF and CAD. Increase diuretic therapy and dual-antiplatelet therapy as per note in the patient with Plavix 600 mg. Julian Fraser MD
[2018-06-15] MEDS: Sodium Chloride 0.9% 1,000 ML IV SCH ×3 (00:07→23:03)
[2018-06-15 07:14] LABS: BASO % 0.7 % (0.0-2.0); EOS # 0.2 K/uL (0.0-0.7); EOS % 3.5 % (0.0-4.0); HEMOGLOBIN 8.5 g/dL (11.0-16.0); LYMPH # 1.1 K/uL (1.0-4.3); LYMPH % 22.7 % (20.0-40.0); MEAN CELL VOLUME 89.2 fL (81.0-99.0); MEAN CORPUSCULAR HEMOGLOBIN 30.1 pg (27.0-31.0); MEAN CORPUSCULAR HGB CONC 33.7 g/dL (33.0-37.0); MEAN PLATELET VOLUME 7.6 fL (7.2-11.7); MONO # 0.3 K/uL (0.0-0.8); MONO % 6.3 % (0.0-10.0); NEUT # 3.4 K/uL (1.8-7.0); NEUT % 66.8 % (50.0-75.0); RBC 2.82 Mil/uL (3.80-5.20); RED CELL DISTRIBUTION WIDTH 13.5 % (11.5-14.5)
--- NOTE | 2018-06-15 07:16 | CP.PCM.PN ---
<Lobito Lopez - Last Filed: 06/15/18 13:03> Subjective - Date & Time of Evaluation Date of Evaluation: 06/15/18 Time of Evaluation: 07:16 - Subjective Subjective: PGY-1 Medicine Progress Note for Dr. Phelps Patient seen and examined at bedside, resting comfortably. No acute overnight events, no somatic complaints. No bleeding from catheter site, no chest pain, no palpitations, no sob. PCI scheduled for tomorrow, patient aware of procedure and plans. Objective - Vital Signs/Intake and Output Vital Signs (last 24 hours): Temp Pulse Resp BP Pulse Ox 97.7 F 80 20 136/71 95 06/15/18 04:15 06/15/18 04:15 06/15/18 04:15 06/15/18 04:15 06/15/18 04:15 Intake and Output: 06/15/18 06/15/18 06:59 18:59 Intake Total 1120 Output Total 450 Balance 670 - Medications Medications: Current Medications Amlodipine Besylate (Norvasc) 10 mg PO DAILY [facility] Last Admin: 06/14/18 13:12 Dose: 10 mg Aspirin (Aspirin Chewable) 81 mg PO DAILY [facility] Last Admin: 06/14/18 13:11 Dose: 81 mg Carvedilol (Coreg) 6.25 mg PO BID [facility] Last Admin: 06/14/18 18:36 Dose: 6.25 mg Dextrose (Dextrose 50% Inj) 0 ml IV STAT PRN; Protocol PRN Reason: Hypoglycemia Protocol Dextrose (Glutose 15) 0 gm PO ONCE PRN; Protocol PRN Reason: Hypoglycemia Protocol Divalproex Sodium (Depakote Dr) 250 mg PO BID [facility] Last Admin: 06/14/18 18:36 Dose: 250 mg Ferrous Sulfate (Feosol) 325 mg PO BID [facility] Last Admin: 06/14/18 18:36 Dose: 325 mg Furosemide (Lasix) 40 mg PO DAILY [facility] Last Admin: 06/13/18 09:20 Dose: 40 mg Glucagon (Glucagen Diagnostic Kit) 0 mg IM STAT PRN; Protocol PRN Reason: Hypoglycemia Protocol Heparin Sodium (Porcine) (Heparin) 5,000 units SC Q12 [facility] Last Admin: 06/13/18 09:20 Dose: 5,000 units Hydralazine HCl (Apresoline) 50 mg PO BID [facility] Last Admin: 06/14/18 18:36 Dose: 50 mg Dextrose (Dextrose 5% In Water 1000 Ml) 1,000 mls @ 0 mls/hr IV .Q0M PRN; Protocol PRN Reason: Hypoglycemia Protocol Sodium Chloride (Sodium Chloride 0.9%) 1,000 mls @ 100 mls/hr IV .Q10H [facility] Last Admin: 06/15/18 00:07 Dose: 100 mls/hr Insulin Human Regular (Novolin R) 0 unit SC ACHS [facility]; Protocol Last Admin: 06/14/18 21:44 Dose: Not Given Losartan Potassium (Cozaar) 100 mg PO DAILY [facility] Last Admin: 06/13/18 09:20 Dose: 100 mg Risperidone (Risperdal Tab) 2 mg PO [facility] Last Admin: 06/14/18 21:06 Dose: 2 mg Rosuvastatin Calcium (Crestor) 5 mg PO HS [facility] Last Admin: 06/14/18 21:06 Dose: 5 mg Sertraline HCl (Zoloft) 100 mg PO [facility] Last Admin: 06/14/18 21:06 Dose: 100 mg - Labs Labs: 06/14/18 07:20 06/14/18 07:20 PT 13.1 SECONDS (9.7-12.2) H 06/09/18 17:52 INR 1.2 06/09/18 17:52 APTT 29 SECONDS (21-34) 06/09/18 17:52 - Constitutional Appears: Non-toxic, No Acute Distress - Head Exam Head Exam: ATRAUMATIC, NORMAL INSPECTION, NORMOCEPHALIC - Eye Exam Eye Exam: EOMI, Normal appearance Pupil Exam: NORMAL ACCOMODATION - ENT Exam ENT Exam: Mucous Membranes Moist, Normal Exam - Neck Exam Neck Exam: Full ROM, Normal Inspection - Respiratory Exam Respiratory Exam: Clear to Ausculation Bilateral, NORMAL BREATHING PATTERN. absent: Accessory Muscle Use, Rales, Rhonchi, Wheezes, Respiratory Distress, Stridor - Cardiovascular Exam Cardiovascular Exam: Tachycardia, +S1, +S2 - GI/Abdominal Exam GI & Abdominal Exam: Soft, Normal Bowel Sounds. absent: Distended, Firm, Guarding, Rigid, Tenderness, Rebound - Extremities Exam Extremities Exam: Full ROM, Normal Capillary Refill, Normal Inspection. absent: Calf Tenderness, Pedal Edema - Back Exam Back Exam: NORMAL INSPECTION - Neurological Exam Neurological Exam: Alert, Awake, Normal Gait, Oriented x3 - Skin Skin Exam: Dry, Intact, Normal Color, Warm Assessment and Plan - Assessment and Plan (Free Text) Assessment: 58 year old F with PMH HFpEF, IDDM2, HTN, HLD, schizophrenia, depression who presents to ED with a 1 week history of worsening back pain and chest pain. Plan: CHF exacerbation Hx of HFpEF and Renal insufficiency -pt in no acute distress, chest pain subsided -serial troponins wnl -BNP 5240 on admission -EKG (06/10): NSR 82 bpm -Cardiology (Dr. Fraser) on case -LAD has a mid high-grade 85-90% stenosis at the bifurcation of the diagonal -LVEF 40-45% -PCI of mid-LAD scheduled [facility] [place], 06/16 -CXR (06/10): elliptical shaped opacity in R medial lung base representing atelectasis and/or infiltrate. minimal linear atelectasis LLL field suspect small b/l effusions -Pt has had thoracentesis during last admission in late April -Echo (04/2018): LVH, 55-60% EF, Mild AR, Mild pulmonary hypertension, mild to moderate AR, Grade I abnormal relaxation pattern. -Lasix 40 IV daily: held -Coreg 6.25 mg PO BID -Losartan 100 mg PO daily -Norvasc 10 mg PO daily Hypertensive urgency, improved -pt asymptomatic, continue to monitor -Losartan 100 mg PO daily held -Norvasc 10 mg PO daily -Coreg 6.25 mg PO BID -Hydralazine 50 mg PO BID CKD stage 4 -Cr 2.6 (06/15), continue to monitor -total urine protein excretion elevated -Nephrology recs (Dr. Bey) appreciated -lasix held for PCI as pt is at risk for contrast nephropathy -IVF pre-PCI started by cardio -Hg worsening, EPO added per Nephro Hx of IDDM2 -A1C 6.4 -ISS low -Accucheck ACHS -hypoglycemic protocol Hx of HLD -Crestor 5 mg PO QHS Hx of schizophrenia, depression -Risperdal 2 mg PO QHS -Sertraline 100 mg PO QHS -Depakote 250 mg PO BID Hx of iron deficiency anemia -Hgb ranges from 8-10 in the past, no signs of acute bleeding on admission -c/w ferrous sulfate 325 mg PO BID Ppx, Diet, Disposition -DVT ppx: scds, heparin -GI ppx: not indicated at this time -Diet: regular diet Dispo: pt scheduled for PCI at [facility] tomorrow, 06/16. Lasix, Losartan held as patient is at risk for contrast nephropathy Case discussed with Dr. Mattie Lopez DO, PGY-1 <Sae Phelps H - Last Filed: 06/15/18 13:24> Objective - Vital Signs/Intake and Output Vital Signs (last 24 hours): Temp Pulse Resp BP Pulse Ox 98.5 F 89 20 150/74 99 06/15/18 08:00 06/15/18 08:00 06/15/18 08:00 06/15/18 08:00 06/15/18 08:00 Intake and Output: 06/15/18 06/15/18 06:59 18:59 Intake Total 2020 Output Total 450 Balance 1570 - Medications Medications: Current Medications Amlodipine Besylate (Norvasc) 10 mg PO DAILY [facility] Last Admin: 06/15/18 10:12 Dose: 10 mg Aspirin (Aspirin Chewable) 81 mg PO DAILY [facility] Last Admin: 06/15/18 10:12 Dose: 81 mg Carvedilol (Coreg) 6.25 mg PO BID [facility] Last Admin: 06/15/18 10:11 Dose: 6.25 mg Dextrose (Dextrose 50% Inj) 0 ml IV STAT PRN; Protocol PRN Reason: Hypoglycemia Protocol Dextrose (Glutose 15) 0 gm PO ONCE PRN; Protocol PRN Reason: Hypoglycemia Protocol Divalproex Sodium (Depakote Dr) 250 mg PO BID [facility] Last Admin: 06/15/18 10:12 Dose: 250 mg Epoetin Donald (Procrit) 10,000 unit SC TTS [facility] Last Admin: 06/15/18 10:30 Dose: Not Given Ferrous Sulfate (Feosol) 325 mg PO BID [facility] Last Admin: 06/15/18 10:12 Dose: 325 mg Furosemide (Lasix) 40 mg PO DAILY [facility] Last Admin: 06/13/18 09:20 Dose: 40 mg Glucagon (Glucagen Diagnostic Kit) 0 mg IM STAT PRN; Protocol PRN Reason: Hypoglycemia Protocol Heparin Sodium (Porcine) (Heparin) 5,000 units SC Q12 [facility] Last Admin: 06/13/18 09:20 Dose: 5,000 units Hydralazine HCl (Apresoline) 50 mg PO BID [facility] Last Admin: 06/15/18 10:12 Dose: 50 mg Dextrose (Dextrose 5% In Water 1000 Ml) 1,000 mls @ 0 mls/hr IV .Q0M PRN; Protocol PRN Reason: Hypoglycemia Protocol Sodium Chloride (Sodium Chloride 0.9%) 1,000 mls @ 100 mls/hr IV .Q10H [facility] Last Admin: 06/15/18 10:28 Dose: 100 mls/hr Insulin Human Regular (Novolin R) 0 unit SC ACHS [facility]; Protocol Last Admin: 06/15/18 12:30 Dose: 3 unit Losartan Potassium (Cozaar) 100 mg PO DAILY [facility] Last Admin: 06/13/18 09:20 Dose: 100 mg Risperidone (Risperdal Tab) 2 mg PO HS [facility] Last Admin: 06/14/18 21:06 Dose: 2 mg Rosuvastatin Calcium (Crestor) 5 mg PO HS [facility] Last Admin: 06/14/18 21:06 Dose: 5 mg Sertraline HCl (Zoloft) 100 mg PO HS [facility] Last Admin: 06/14/18 21:06 Dose: 100 mg - Labs Labs: 06/15/18 07:04 06/15/18 07:04 PT 13.1 SECONDS (9.7-12.2) H 06/09/18 17:52 INR 1.2 06/09/18 17:52 APTT 29 SECONDS (21-34) 06/09/18 17:52 Attending/Attestation - Attestation I have personally seen and examined this patient.: Yes I have fully participated in the care of the patient.: Yes I have reviewed all pertinent clinical information, including history, physical exam and plan: Yes Notes (Text): Medical attending: Patient was seen and examined by me. Agree with the above note by the resident, the patient was not in any acute distress She is pending going to [facility] for stenting. As mentioned previously her Lasix and ARB are on temporary hold at this time Sae Phelps
[2018-06-15] MEDS: (Novolin R) Insulin Human Regular 100 units/ml vial SC SCH ×4 (07:44→23:03)
--- NOTE | 2018-06-15 08:01 | CP.PCM.PN ---
Subjective - Date & Time of Evaluation Date of Evaluation: 06/15/18 Time of Evaluation: 07:00 - Subjective Subjective: Pt seen and examined, denies chest pain or SOB. Denies bleeding from catheter site Objective - Vital Signs/Intake and Output Vital Signs (last 24 hours): Temp Pulse Resp BP Pulse Ox 97.7 F 80 20 136/71 95 06/15/18 04:15 06/15/18 04:15 06/15/18 04:15 06/15/18 04:15 06/15/18 04:15 Intake and Output: 06/15/18 06/15/18 06:59 18:59 Intake Total 1120 Output Total 450 Balance 670 - Medications Medications: Current Medications Amlodipine Besylate (Norvasc) 10 mg PO DAILY [facility] Last Admin: 06/14/18 13:12 Dose: 10 mg Aspirin (Aspirin Chewable) 81 mg PO DAILY [facility] Last Admin: 06/14/18 13:11 Dose: 81 mg Carvedilol (Coreg) 6.25 mg PO BID [facility] Last Admin: 06/14/18 18:36 Dose: 6.25 mg Dextrose (Dextrose 50% Inj) 0 ml IV STAT PRN; Protocol PRN Reason: Hypoglycemia Protocol Dextrose (Glutose 15) 0 gm PO ONCE PRN; Protocol PRN Reason: Hypoglycemia Protocol Divalproex Sodium (Depakote Dr) 250 mg PO BID [facility] Last Admin: 06/14/18 18:36 Dose: 250 mg Ferrous Sulfate (Feosol) 325 mg PO BID [facility] Last Admin: 06/14/18 18:36 Dose: 325 mg Furosemide (Lasix) 40 mg PO DAILY [facility] Last Admin: 06/13/18 09:20 Dose: 40 mg Glucagon (Glucagen Diagnostic Kit) 0 mg IM STAT PRN; Protocol PRN Reason: Hypoglycemia Protocol Heparin Sodium (Porcine) (Heparin) 5,000 units SC Q12 [facility] Last Admin: 06/13/18 09:20 Dose: 5,000 units Hydralazine HCl (Apresoline) 50 mg PO BID [facility] Last Admin: 06/14/18 18:36 Dose: 50 mg Dextrose (Dextrose 5% In Water 1000 Ml) 1,000 mls @ 0 mls/hr IV .Q0M PRN; Protocol PRN Reason: Hypoglycemia Protocol Sodium Chloride (Sodium Chloride 0.9%) 1,000 mls @ 100 mls/hr IV .Q10H [facility] Last Admin: 06/15/18 00:07 Dose: 100 mls/hr Insulin Human Regular (Novolin R) 0 unit SC ACHS [facility]; Protocol Last Admin: 06/15/18 07:44 Dose: Not Given Losartan Potassium (Cozaar) 100 mg PO DAILY [facility] Last Admin: 06/13/18 09:20 Dose: 100 mg Risperidone (Risperdal Tab) 2 mg PO [facility] Last Admin: 06/14/18 21:06 Dose: 2 mg Rosuvastatin Calcium (Crestor) 5 mg PO [facility] Last Admin: 06/14/18 21:06 Dose: 5 mg Sertraline HCl (Zoloft) 100 mg PO [facility] Last Admin: 06/14/18 21:06 Dose: 100 mg - Labs Labs: 06/15/18 07:04 06/14/18 07:20 PT 13.1 SECONDS (9.7-12.2) H 06/09/18 17:52 INR 1.2 06/09/18 17:52 APTT 29 SECONDS (21-34) 06/09/18 17:52 - Constitutional Appears: No Acute Distress - Head Exam Head Exam: ATRAUMATIC, NORMOCEPHALIC - Eye Exam Eye Exam: EOMI - ENT Exam ENT Exam: Mucous Membranes Moist - Neck Exam Neck Exam: Full ROM - Respiratory Exam Respiratory Exam: Clear to Ausculation Bilateral, NORMAL BREATHING PATTERN. absent: Accessory Muscle Use - Cardiovascular Exam Cardiovascular Exam: RRR, +S1, +S2. absent: Diastolic murmur, Murmur - GI/Abdominal Exam GI & Abdominal Exam: Soft, Normal Bowel Sounds. absent: Tenderness Additional comments: catheter site is bandaged, which is clean dry and intact - Extremities Exam Extremities Exam: Full ROM. absent: Calf Tenderness, Pedal Edema - Neurological Exam Neurological Exam: Alert, Awake, Oriented x3 - Psychiatric Exam Psychiatric exam: Normal Affect, Normal Mood - Skin Skin Exam: Dry, Normal Color, Warm Assessment and Plan - Assessment and Plan (Free Text) Assessment: (1) CHF (congestive heart failure) Status: Acute (2) Chronic anemia Status: Acute (3) Pleural effusion Status: Acute (4) HTN (hypertension) Status: Chronic (5) TRISTON (acute kidney injury) Status: Acute Plan: CHF exacerbation Chronic anemia Pleural effusion HTN TRISTON Trop 3/1 negative x3 HA1C 6.4 BNP 06/09 5240, 06/10 5940, 06/11 3700 EKG 06/[address] or T wave abnormalities ECHO 48%, mild/mod AR Cardiac cath 06/14/18: lesions found in LAD, RCA, Circ and OM. Pt scheduled at [facility] for intervention, Tuesday06/16/18. lasix and cozaar were held for procedure Medications amlodipine ASA coreg hydralazine crestor Pt seen, examined, assessment and plan discussed with Dr Evelio Potts PGY1
[2018-06-15 08:18] LABS: ALB/GLOB RATIO 1.2 (1.0-2.1); ALBUMIN 3.8 g/dL (3.5-5.0); CALCIUM 8.2 mg/dl (8.6-10.4)
--- NOTE | 2018-06-15 09:51 | CP.PCM.PN ---
Subjective - Date & Time of Evaluation Date of Evaluation: 06/15/18 Time of Evaluation: 09:49 - Subjective Subjective: awaiting PCI feels same creat stable at 2.6 IV fluids pre PCI started by cardio HG worse- will need ESAs Objective - Vital Signs/Intake and Output Vital Signs (last 24 hours): Temp Pulse Resp BP Pulse Ox 97.7 F 80 20 136/71 95 06/15/18 04:15 06/15/18 04:15 06/15/18 04:15 06/15/18 04:15 06/15/18 04:15 Intake and Output: 06/15/18 06/15/18 06:59 18:59 Intake Total 2020 Output Total 450 Balance 1570 - Medications Medications: Current Medications Amlodipine Besylate (Norvasc) 10 mg PO DAILY [facility] Last Admin: 06/14/18 13:12 Dose: 10 mg Aspirin (Aspirin Chewable) 81 mg PO DAILY [facility] Last Admin: 06/14/18 13:11 Dose: 81 mg Carvedilol (Coreg) 6.25 mg PO BID [facility] Last Admin: 06/14/18 18:36 Dose: 6.25 mg Dextrose (Dextrose 50% Inj) 0 ml IV STAT PRN; Protocol PRN Reason: Hypoglycemia Protocol Dextrose (Glutose 15) 0 gm PO ONCE PRN; Protocol PRN Reason: Hypoglycemia Protocol Divalproex Sodium (Depakote Dr) 250 mg PO BID [facility] Last Admin: 06/14/18 18:36 Dose: 250 mg Ferrous Sulfate (Feosol) 325 mg PO BID [facility] Last Admin: 06/14/18 18:36 Dose: 325 mg Furosemide (Lasix) 40 mg PO DAILY [facility] Last Admin: 06/13/18 09:20 Dose: 40 mg Glucagon (Glucagen Diagnostic Kit) 0 mg IM STAT PRN; Protocol PRN Reason: Hypoglycemia Protocol Heparin Sodium (Porcine) (Heparin) 5,000 units SC Q12 [facility] Last Admin: 06/13/18 09:20 Dose: 5,000 units Hydralazine HCl (Apresoline) 50 mg PO BID [facility] Last Admin: 06/14/18 18:36 Dose: 50 mg Dextrose (Dextrose 5% In Water 1000 Ml) 1,000 mls @ 0 mls/hr IV .Q0M PRN; Protocol PRN Reason: Hypoglycemia Protocol Sodium Chloride (Sodium Chloride 0.9%) 1,000 mls @ 100 mls/hr IV .Q10H [facility] Last Admin: 06/15/18 00:07 Dose: 100 mls/hr Insulin Human Regular (Novolin R) 0 unit SC ACHS [facility]; Protocol Last Admin: 06/15/18 07:44 Dose: Not Given Losartan Potassium (Cozaar) 100 mg PO DAILY [facility] Last Admin: 06/13/18 09:20 Dose: 100 mg Risperidone (Risperdal Tab) 2 mg PO [facility] Last Admin: 06/14/18 21:06 Dose: 2 mg Rosuvastatin Calcium (Crestor) 5 mg PO HS [facility] Last Admin: 06/14/18 21:06 Dose: 5 mg Sertraline HCl (Zoloft) 100 mg PO [facility] Last Admin: 06/14/18 21:06 Dose: 100 mg - Labs Labs: 06/15/18 07:04 06/15/18 07:04 PT 13.1 SECONDS (9.7-12.2) H 06/09/18 17:52 INR 1.2 06/09/18 17:52 APTT 29 SECONDS (21-34) 06/09/18 17:52 - Constitutional Appears: No Acute Distress, Chronically Ill - Head Exam Head Exam: ATRAUMATIC, NORMAL INSPECTION - Eye Exam Eye Exam: EOMI, Normal appearance - Neck Exam Neck Exam: Normal Inspection. absent: Tenderness - Respiratory Exam Respiratory Exam: Clear to Ausculation Bilateral, NORMAL BREATHING PATTERN - Cardiovascular Exam Cardiovascular Exam: REGULAR RHYTHM, +S1 - GI/Abdominal Exam GI & Abdominal Exam: Soft. absent: Tenderness - Extremities Exam Extremities Exam: Normal Inspection. absent: Tenderness - Neurological Exam Neurological Exam: Awake, CN II-XII Intact - Skin Skin Exam: Dry, Warm Assessment and Plan (1) Fluid overload Status: Acute (2) CKD stage 4 due to type 2 diabetes mellitus Status: Acute (3) Proteinuria Status: Acute (4) Chronic anemia Status: Acute (5) Schizophrenia Status: Chronic - Assessment and Plan (Free Text) Plan: start EPO check fe stores await PCI
[2018-06-15] MEDS ORDERED: Epoetin Alfa 10,000 unit/ml Dialysis SC SCH (10:00)
[2018-06-15] MEDS: Divalproex 250 mg DR Tab PO SCH ×2 (10:12→18:47)
[2018-06-15] MEDS ORDERED: EPOETIN ALFA 10,000 UNIT/ML ML SC SCH (10:30)
[2018-06-16 04:44] LABS: BASO % 0.6 % (0.0-2.0); EOS # 0.2 K/uL (0.0-0.7); EOS % 5.1 % (0.0-4.0); HEMOGLOBIN 8.1 g/dL (11.0-16.0); LYMPH # 1.2 K/uL (1.0-4.3); LYMPH % 27.2 % (20.0-40.0); MEAN CELL VOLUME 88.7 fL (81.0-99.0); MEAN CORPUSCULAR HEMOGLOBIN 29.8 pg (27.0-31.0); MEAN CORPUSCULAR HGB CONC 33.6 g/dL (33.0-37.0); MEAN PLATELET VOLUME 7.6 fL (7.2-11.7); MONO # 0.3 K/uL (0.0-0.8); MONO % 6.3 % (0.0-10.0); NEUT # 2.7 K/uL (1.8-7.0); NEUT % 60.8 % (50.0-75.0); RBC 2.72 Mil/uL (3.80-5.20); RED CELL DISTRIBUTION WIDTH 13.1 % (11.5-14.5); WHITE BLOOD COUNT 4.5 K/uL (4.8-10.8)
[2018-06-16] MEDS: Sodium Chloride 0.9% 1,000 ML IV SCH (05:34)
--- NOTE | 2018-06-16 09:30 | CP.PCM.PN ---
<Lobito Lopez - Last Filed: 06/16/18 14:03> Subjective - Date & Time of Evaluation Date of Evaluation: 06/16/18 Time of Evaluation: 09:30 - Subjective Subjective: PGY-1 Medicine Progress Note for Dr. Phelps Patient seen and examined at bedside this AM prior to transfer for PCI, in no acute distress. No chest pain/palpitations, sob, cough, abdominal pain, n/v/d/c. 12 pt ROS reviewed and otherwise negative. Objective - Vital Signs/Intake and Output Vital Signs (last 24 hours): Temp Pulse Resp BP Pulse Ox 98.2 F 91 H 20 135/73 97 06/15/18 23:25 06/16/18 00:00 06/15/18 23:25 06/15/18 23:25 06/15/18 23:25 - Medications Medications: Current Medications Amlodipine Besylate (Norvasc) 10 mg PO DAILY [facility] Last Admin: 06/15/18 10:12 Dose: 10 mg Aspirin (Aspirin Chewable) 81 mg PO DAILY [facility] Last Admin: 06/15/18 10:12 Dose: 81 mg Carvedilol (Coreg) 6.25 mg PO BID [facility] Last Admin: 06/15/18 18:47 Dose: 6.25 mg Dextrose (Dextrose 50% Inj) 0 ml IV STAT PRN; Protocol PRN Reason: Hypoglycemia Protocol Dextrose (Glutose 15) 0 gm PO ONCE PRN; Protocol PRN Reason: Hypoglycemia Protocol Divalproex Sodium (Depakote Dr) 250 mg PO BID [facility] Last Admin: 06/15/18 18:47 Dose: 250 mg Epoetin Donald (Procrit) 10,000 unit SC TTS [facility] Last Admin: 06/15/18 10:30 Dose: Not Given Ferrous Sulfate (Feosol) 325 mg PO BID [facility] Last Admin: 06/15/18 18:47 Dose: 325 mg Furosemide (Lasix) 40 mg PO DAILY [facility] Last Admin: 06/13/18 09:20 Dose: 40 mg Glucagon (Glucagen Diagnostic Kit) 0 mg IM STAT PRN; Protocol PRN Reason: Hypoglycemia Protocol Heparin Sodium (Porcine) (Heparin) 5,000 units SC Q12 [facility] Last Admin: 06/15/18 22:08 Dose: Not Given Hydralazine HCl (Apresoline) 50 mg PO BID [facility] Last Admin: 06/15/18 18:47 Dose: 50 mg Dextrose (Dextrose 5% In Water 1000 Ml) 1,000 mls @ 0 mls/hr IV .Q0M PRN; Protocol PRN Reason: Hypoglycemia Protocol Sodium Chloride (Sodium Chloride 0.9%) 1,000 mls @ 100 mls/hr IV .Q10H [facility] Last Admin: 06/16/18 05:34 Dose: 100 mls/hr Insulin Human Regular (Novolin R) 0 unit SC ACHS [facility]; Protocol Last Admin: 06/15/18 23:03 Dose: Not Given Losartan Potassium (Cozaar) 100 mg PO DAILY [facility] Last Admin: 06/13/18 09:20 Dose: 100 mg Risperidone (Risperdal Tab) 2 mg PO [facility] Last Admin: 06/15/18 23:02 Dose: 2 mg Rosuvastatin Calcium (Crestor) 5 mg PO [facility] Last Admin: 06/15/18 23:01 Dose: 5 mg Sertraline HCl (Zoloft) 100 mg PO [facility] Last Admin: 06/15/18 23:02 Dose: 100 mg - Labs Labs: 06/16/18 04:39 06/15/18 07:04 PT 13.1 SECONDS (9.7-12.2) H 06/09/18 17:52 INR 1.2 06/09/18 17:52 APTT 29 SECONDS (21-34) 06/09/18 17:52 - Constitutional Appears: Non-toxic, No Acute Distress - Head Exam Head Exam: ATRAUMATIC, NORMAL INSPECTION, NORMOCEPHALIC - Eye Exam Eye Exam: EOMI, Normal appearance, PERRL Pupil Exam: NORMAL ACCOMODATION - ENT Exam ENT Exam: Mucous Membranes Moist, Normal Exam - Neck Exam Neck Exam: Full ROM, Normal Inspection - Respiratory Exam Respiratory Exam: Clear to Ausculation Bilateral, NORMAL BREATHING PATTERN. absent: Accessory Muscle Use, Rales, Rhonchi, Wheezes, Respiratory Distress, Stridor - Cardiovascular Exam Cardiovascular Exam: REGULAR RHYTHM, +S1, +S2 - GI/Abdominal Exam GI & Abdominal Exam: Soft, Normal Bowel Sounds. absent: Distended, Firm, Guarding, Rigid, Tenderness, Rebound - Extremities Exam Extremities Exam: Full ROM, Normal Capillary Refill, Normal Inspection. absent: Calf Tenderness, Pedal Edema - Back Exam Back Exam: NORMAL INSPECTION - Neurological Exam Neurological Exam: Alert, Awake, Normal Gait, Oriented x3 - Psychiatric Exam Psychiatric exam: Normal Affect, Normal Mood - Skin Skin Exam: Dry, Intact, Normal Color, Warm Assessment and Plan - Assessment and Plan (Free Text) Assessment: 58 year old F with PMH HFpEF, IDDM2, HTN, HLD, schizophrenia, depression who presents to ED with a 1 week history of worsening back pain and chest pain. Plan: CHF exacerbation Hx of HFpEF and Renal insufficiency -pt in no acute distress, chest pain subsided -serial troponins wnl -BNP 5240 on admission -EKG (06/10): NSR 82 bpm -Cardiology (Dr. Fraser) on case -LAD has a mid high-grade 85-90% stenosis at the bifurcation of the diagonal -LVEF 40-45% -PCI of mid-LAD scheduled today (06/16) -CXR (06/10): elliptical shaped opacity in R medial lung base representing atelectasis and/or infiltrate. minimal linear atelectasis LLL field suspect small b/l effusions -Pt has had thoracentesis during last admission in late April -Echo (04/2018): LVH, 55-60% EF, Mild AR, Mild pulmonary hypertension, mild to moderate AR, Grade I abnormal relaxation pattern. -Lasix 40 IV daily: held -Coreg 6.25 mg PO BID -Losartan 100 mg PO daily: held -Norvasc 10 mg PO daily Hypertensive urgency, improved -pt asymptomatic, continue to monitor -Losartan 100 mg PO daily held -Norvasc 10 mg PO daily -Coreg 6.25 mg PO BID -Hydralazine 50 mg PO BID CKD stage 4 -Cr 2.6 (06/15), continue to monitor -total urine protein excretion elevated -Nephrology recs (Dr. Bey) appreciated -lasix held for PCI as pt is at risk for contrast nephropathy -IVF pre-PCI started by cardio -EPO Hx of IDDM2 -A1C 6.4 -ISS low -Accucheck ACHS -hypoglycemic protocol Hx of HLD -Crestor 5 mg PO QHS Hx of schizophrenia, depression -Risperdal 2 mg PO QHS -Sertraline 100 mg PO QHS -Depakote 250 mg PO BID Hx of iron deficiency anemia -Hgb ranges from 8-10 in the past, no signs of acute bleeding on admission -c/w ferrous sulfate 325 mg PO BID Ppx, Diet, Disposition -DVT ppx: scds, heparin -GI ppx: not indicated at this time -Diet: NPO Dispo: PCI scheduled today (06/16) at [place]. Lasix, Losartan held as patient is at risk for contrast nephropathy. F/U further cardio recs. Case discussed with Dr. Mattie Lopez DO, PGY-1 <Sae Phelps H - Last Filed: 06/16/18 15:11> Objective - Vital Signs/Intake and Output Vital Signs (last 24 hours): Temp Pulse Resp BP Pulse Ox 98.2 F 91 H 20 135/73 97 06/15/18 23:25 06/16/18 00:00 06/15/18 23:25 06/15/18 23:25 06/15/18 23:25 - Medications Medications: Current Medications Amlodipine Besylate (Norvasc) 10 mg PO DAILY [facility] Last Admin: 06/15/18 10:12 Dose: 10 mg Aspirin (Aspirin Chewable) 81 mg PO DAILY [facility] Last Admin: 06/15/18 10:12 Dose: 81 mg Carvedilol (Coreg) 6.25 mg PO BID [facility] Last Admin: 06/15/18 18:47 Dose: 6.25 mg Clopidogrel Bisulfate (Plavix) 75 mg PO DAILY [facility] Dextrose (Dextrose 50% Inj) 0 ml IV STAT PRN; Protocol PRN Reason: Hypoglycemia Protocol Dextrose (Glutose 15) 0 gm PO ONCE PRN; Protocol PRN Reason: Hypoglycemia Protocol Divalproex Sodium (Depakote Dr) 250 mg PO BID [facility] Last Admin: 06/15/18 18:47 Dose: 250 mg Epoetin Donald (Procrit) 10,000 unit SC TTS [facility] Last Admin: 06/15/18 10:30 Dose: Not Given Ferrous Sulfate (Feosol) 325 mg PO BID [facility] Last Admin: 06/15/18 18:47 Dose: 325 mg Furosemide (Lasix) 40 mg PO DAILY [facility] Last Admin: 06/13/18 09:20 Dose: 40 mg Glucagon (Glucagen Diagnostic Kit) 0 mg IM STAT PRN; Protocol PRN Reason: Hypoglycemia Protocol Heparin Sodium (Porcine) (Heparin) 5,000 units SC Q12 [facility] Last Admin: 06/15/18 22:08 Dose: Not Given Hydralazine HCl (Apresoline) 50 mg PO BID [facility] Last Admin: 06/15/18 18:47 Dose: 50 mg Dextrose (Dextrose 5% In Water 1000 Ml) 1,000 mls @ 0 mls/hr IV .Q0M PRN; Protocol PRN Reason: Hypoglycemia Protocol Sodium Chloride (Sodium Chloride 0.9%) 1,000 mls @ 100 mls/hr IV .Q10H [facility] Last Admin: 06/16/18 05:34 Dose: 100 mls/hr Insulin Human Regular (Novolin R) 0 unit SC ACHS [facility]; Protocol Last Admin: 06/15/18 23:03 Dose: Not Given Losartan Potassium (Cozaar) 100 mg PO DAILY [facility] Last Admin: 06/13/18 09:20 Dose: 100 mg Risperidone (Risperdal Tab) 2 mg PO [facility] Last Admin: 06/15/18 23:02 Dose: 2 mg Rosuvastatin Calcium (Crestor) 5 mg PO [facility] Last Admin: 06/15/18 23:01 Dose: 5 mg Sertraline HCl (Zoloft) 100 mg PO HS [facility] Last Admin: 06/15/18 23:02 Dose: 100 mg - Labs Labs: 06/16/18 04:39 06/15/18 07:04 PT 13.1 SECONDS (9.7-12.2) H 06/09/18 17:52 INR 1.2 06/09/18 17:52 APTT 29 SECONDS (21-34) 06/09/18 17:52 Attending/Attestation - Attestation I have personally seen and examined this patient.: Yes I have fully participated in the care of the patient.: Yes I have reviewed all pertinent clinical information, including history, physical exam and plan: Yes Notes (Text): 06/16/18 15:09 Medical attending: Reviewed the above note by the resident Patient this morning went [place] [facility] cardiac intervention Later today will be comming back to [facility] Holding the lasix and ARB, the creatine is stable at this time. Continue to monitor Sae Phelps 06/16/18 15:10
--- NOTE | 2018-06-16 12:32 | CP.PCM.PN ---
<Yuval Ptots - Last Filed: 06/16/18 12:29> Subjective - Date & Time of Evaluation Date of Evaluation: 06/16/18 Time of Evaluation: 07:00 - Subjective Subjective: Pt seen and examined this morning at bedside before procedure. Denies chest pain and SOB Objective - Vital Signs/Intake and Output Vital Signs (last 24 hours): Temp Pulse Resp BP Pulse Ox 98.2 F 91 H 20 135/73 97 06/15/18 23:25 06/16/18 00:00 06/15/18 23:25 06/15/18 23:25 06/15/18 23:25 - Medications Medications: Current Medications Amlodipine Besylate (Norvasc) 10 mg PO DAILY [facility] Last Admin: 06/15/18 10:12 Dose: 10 mg Aspirin (Aspirin Chewable) 81 mg PO DAILY [facility] Last Admin: 06/15/18 10:12 Dose: 81 mg Carvedilol (Coreg) 6.25 mg PO BID [facility] Last Admin: 06/15/18 18:47 Dose: 6.25 mg Clopidogrel Bisulfate (Plavix) 75 mg PO DAILY [facility] Dextrose (Dextrose 50% Inj) 0 ml IV STAT PRN; Protocol PRN Reason: Hypoglycemia Protocol Dextrose (Glutose 15) 0 gm PO ONCE PRN; Protocol PRN Reason: Hypoglycemia Protocol Divalproex Sodium (Depakote Dr) 250 mg PO BID [facility] Last Admin: 06/15/18 18:47 Dose: 250 mg Epoetin Donald (Procrit) 10,000 unit SC TTS [facility] Last Admin: 06/15/18 10:30 Dose: Not Given Ferrous Sulfate (Feosol) 325 mg PO BID [facility] Last Admin: 06/15/18 18:47 Dose: 325 mg Furosemide (Lasix) 40 mg PO DAILY [facility] Last Admin: 06/13/18 09:20 Dose: 40 mg Glucagon (Glucagen Diagnostic Kit) 0 mg IM STAT PRN; Protocol PRN Reason: Hypoglycemia Protocol Heparin Sodium (Porcine) (Heparin) 5,000 units SC Q12 [facility] Last Admin: 06/15/18 22:08 Dose: Not Given Hydralazine HCl (Apresoline) 50 mg PO BID [facility] Last Admin: 06/15/18 18:47 Dose: 50 mg Dextrose (Dextrose 5% In Water 1000 Ml) 1,000 mls @ 0 mls/hr IV .Q0M PRN; Protocol PRN Reason: Hypoglycemia Protocol Sodium Chloride (Sodium Chloride 0.9%) 1,000 mls @ 100 mls/hr IV .Q10H [facility] Last Admin: 06/16/18 05:34 Dose: 100 mls/hr Insulin Human Regular (Novolin R) 0 unit SC ACHS [facility]; Protocol Last Admin: 06/15/18 23:03 Dose: Not Given Losartan Potassium (Cozaar) 100 mg PO DAILY [facility] Last Admin: 06/13/18 09:20 Dose: 100 mg Risperidone (Risperdal Tab) 2 mg PO [facility] Last Admin: 06/15/18 23:02 Dose: 2 mg Rosuvastatin Calcium (Crestor) 5 mg PO [facility] Last Admin: 06/15/18 23:01 Dose: 5 mg Sertraline HCl (Zoloft) 100 mg PO [facility] Last Admin: 06/15/18 23:02 Dose: 100 mg - Labs Labs: 06/16/18 04:39 06/15/18 07:04 PT 13.1 SECONDS (9.7-12.2) H 06/09/18 17:52 INR 1.2 06/09/18 17:52 APTT 29 SECONDS (21-34) 06/09/18 17:52 - Constitutional Appears: No Acute Distress - Head Exam Head Exam: ATRAUMATIC, NORMOCEPHALIC - Eye Exam Eye Exam: EOMI - ENT Exam ENT Exam: Mucous Membranes Moist - Neck Exam Neck Exam: Full ROM - Respiratory Exam Respiratory Exam: Clear to Ausculation Bilateral, NORMAL BREATHING PATTERN. absent: Accessory Muscle Use - Cardiovascular Exam Cardiovascular Exam: RRR, +S1, +S2. absent: Diastolic murmur, Murmur - GI/Abdominal Exam GI & Abdominal Exam: Soft, Normal Bowel Sounds. absent: Tenderness - Extremities Exam Extremities Exam: Full ROM - Neurological Exam Neurological Exam: Alert, Awake, Oriented x3 - Psychiatric Exam Psychiatric exam: Normal Affect, Normal Mood - Skin Skin Exam: Dry, Intact, Warm Assessment and Plan - Assessment and Plan (Free Text) Assessment: (1) CHF (congestive heart failure) Status: Acute (2) Chronic anemia Status: Acute (3) Pleural effusion Status: Acute (4) HTN (hypertension) Status: Chronic (5) TRISTON (acute kidney injury) Status: Acute Plan: CHF exacerbation Chronic anemia Pleural effusion HTN TRISTON Trop 06/09 negative x3 HA1C 6.4 BNP 06/09 5240, 06/10 5940, 06/11 3700 EKG 06/[address] or T wave abnormalities ECHO 48%, mild/mod AR Cardiac cath 06/14/18: lesions found in LAD, RCA, Circ and OM. Pt scheduled at [facility] [place] for intervention, Tuesday06/16/18. lasix and cozaar were held for procedure Cardiac cath [facility] [place] 06/16/18: ÁLVARO mid LAD restart ASA and plavix daily tomorrow Medications amlodipine ASA coreg hydralazine crestor plavix Pt seen, examined, assessment and plan discussed with Dr Evelio Potts PGY1 <Julian Fraser - Last Filed: 06/16/18 20:32> Objective - Vital Signs/Intake and Output Vital Signs (last 24 hours): Temp Pulse Resp BP Pulse Ox 98.4 F 97 H 20 177/81 H 98 06/16/18 18:57 06/16/18 19:31 06/16/18 18:57 06/16/18 18:57 06/16/18 18:57 - Medications Medications: Current Medications Amlodipine Besylate (Norvasc) 10 mg PO DAILY [facility] Last Admin: 06/15/18 10:12 Dose: 10 mg Aspirin (Aspirin Chewable) 81 mg PO DAILY [facility] Last Admin: 06/15/18 10:12 Dose: 81 mg Carvedilol (Coreg) 6.25 mg PO BID [facility] Last Admin: 06/16/18 19:36 Dose: 6.25 mg Clopidogrel Bisulfate (Plavix) 75 mg PO DAILY [facility] Dextrose (Dextrose 50% Inj) 0 ml IV STAT PRN; Protocol PRN Reason: Hypoglycemia Protocol Dextrose (Glutose 15) 0 gm PO ONCE PRN; Protocol PRN Reason: Hypoglycemia Protocol Divalproex Sodium (Depakote Dr) 250 mg PO BID [facility] Last Admin: 06/16/18 19:36 Dose: 250 mg Epoetin Donald (Procrit) 10,000 unit SC TTS [facility] Last Admin: 06/15/18 10:30 Dose: Not Given Ferrous Sulfate (Feosol) 325 mg PO BID [facility] Last Admin: 06/16/18 19:37 Dose: 325 mg Furosemide (Lasix) 40 mg PO DAILY [facility] Last Admin: 06/13/18 09:20 Dose: 40 mg Glucagon (Glucagen Diagnostic Kit) 0 mg IM STAT PRN; Protocol PRN Reason: Hypoglycemia Protocol Heparin Sodium (Porcine) (Heparin) 5,000 units SC Q12 [facility] Last Admin: 06/15/18 22:08 Dose: Not Given Hydralazine HCl (Apresoline) 50 mg PO BID [facility] Last Admin: 06/16/18 19:36 Dose: 50 mg Dextrose (Dextrose 5% In Water 1000 Ml) 1,000 mls @ 0 mls/hr IV .Q0M PRN; Protocol PRN Reason: Hypoglycemia Protocol Sodium Chloride (Sodium Chloride 0.9%) 1,000 mls @ 100 mls/hr IV .Q10H [facility] Last Admin: 06/16/18 05:34 Dose: 100 mls/hr Insulin Human Regular (Novolin R) 0 unit SC ACHS [facility]; Protocol Last Admin: 06/16/18 16:30 Dose: Not Given Losartan Potassium (Cozaar) 100 mg PO DAILY [facility] Last Admin: 06/13/18 09:20 Dose: 100 mg Risperidone (Risperdal Tab) 2 mg PO HS [facility] Last Admin: 06/15/18 23:02 Dose: 2 mg Rosuvastatin Calcium (Crestor) 5 mg PO HS [facility] Last Admin: 06/15/18 23:01 Dose: 5 mg Sertraline HCl (Zoloft) 100 mg PO HS [facility] Last Admin: 06/15/18 23:02 Dose: 100 mg - Labs Labs: 06/16/18 04:39 06/15/18 07:04 PT 13.1 SECONDS (9.7-12.2) H 06/09/18 17:52 INR 1.2 06/09/18 17:52 APTT 29 SECONDS (21-34) 06/09/18 17:52 Assessment and Plan (1) CHF (congestive heart failure) Status: Acute (2) Chronic anemia Status: Acute (3) Pleural effusion Status: Acute (4) HTN (hypertension) Status: Chronic (5) TRISTON (acute kidney injury) Status: Acute Attending/Attestation - Attestation I have personally seen and examined this patient.: Yes I have fully participated in the care of the patient.: Yes I have reviewed all pertinent clinical information, including history, physical exam and plan: Yes Notes (Text): 06/16/18 20:Francisco Don is a pleasant 58-year-old female who presented with complains of atypical chest pain and shortness of breath was diagnosed with new onset CHF with a BNP of 5800 after being ruled out for ACS he continued having intermittent bouts of atypical chest pain. Etiology of her CHF exacerbation was clinically unclear as she has been compliant with her medication and there was no dietary noncompliance or salt overload. Based on the above data she underwent echo diagnostic cardiac catheterization showing high-grade mid LAD stenosis she was taken over to be [facility] this morning and underwent FFR guided PCI of the mid LAD with drug-eluting stent x2 she is to continue on dual antiplatelet therapy which she is currently on I would continue her on the aspirin and Plavix continue her on Coreg statins and blood pressure medications if she remains stable she can be discharged home tomorrow and follow-up in the outpatient in 1 week's time.
[2018-06-16] MEDS: (Novolin R) Insulin Human Regular 100 units/ml vial SC SCH ×2 (16:30→22:11)
[2018-06-16] MEDS: Divalproex 250 mg DR Tab PO SCH (19:36)
--- NOTE | 2018-06-17 05:36 | CP.PCM.PN ---
Subjective - Date & Time of Evaluation Date of Evaluation: 06/17/18 Time of Evaluation: 06:06 - Subjective Subjective: PGY-[address] Sae Phelps Patient seen and examined at bedside. Patient went for PCI at [facility] yesterday, as per nurse, patient developed shortness of breath and wheezing, was given lasix. Patient denies shortness of breath at this time, denies any pain, no fever, chills, chest pain, sob, n/v/d/c or urinary complaints. Objective - Vital Signs/Intake and Output Vital Signs (last 24 hours): Temp Pulse Resp BP Pulse Ox 98.6 F 78 20 127/70 99 06/16/18 23:25 06/17/18 01:00 06/16/18 23:25 06/16/18 23:25 06/16/18 23:25 - Medications Medications: Current Medications Amlodipine Besylate (Norvasc) 10 mg PO DAILY [facility] Last Admin: 06/15/18 10:12 Dose: 10 mg Aspirin (Aspirin Chewable) 81 mg PO DAILY [facility] Last Admin: 06/15/18 10:12 Dose: 81 mg Carvedilol (Coreg) 6.25 mg PO BID [facility] Last Admin: 06/16/18 19:36 Dose: 6.25 mg Clopidogrel Bisulfate (Plavix) 75 mg PO DAILY [facility] Dextrose (Dextrose 50% Inj) 0 ml IV STAT PRN; Protocol PRN Reason: Hypoglycemia Protocol Dextrose (Glutose 15) 0 gm PO ONCE PRN; Protocol PRN Reason: Hypoglycemia Protocol Divalproex Sodium (Depakote Dr) 250 mg PO BID [facility] Last Admin: 06/16/18 19:36 Dose: 250 mg Epoetin Donald (Procrit) 10,000 unit SC TTS [facility] Last Admin: 06/15/18 10:30 Dose: Not Given Ferrous Sulfate (Feosol) 325 mg PO BID [facility] Last Admin: 06/16/18 19:37 Dose: 325 mg Furosemide (Lasix) 40 mg PO DAILY [facility] Last Admin: 06/13/18 09:20 Dose: 40 mg Glucagon (Glucagen Diagnostic Kit) 0 mg IM STAT PRN; Protocol PRN Reason: Hypoglycemia Protocol Heparin Sodium (Porcine) (Heparin) 5,000 units SC Q12 [facility] Last Admin: 06/16/18 21:29 Dose: 5,000 units Hydralazine HCl (Apresoline) 50 mg PO BID [facility] Last Admin: 06/16/18 19:36 Dose: 50 mg Dextrose (Dextrose 5% In Water 1000 Ml) 1,000 mls @ 0 mls/hr IV .Q0M PRN; Protocol PRN Reason: Hypoglycemia Protocol Insulin Human Regular (Novolin R) 0 unit SC ACHS [facility]; Protocol Last Admin: 06/16/18 22:11 Dose: Not Given Losartan Potassium (Cozaar) 100 mg PO DAILY [facility] Last Admin: 06/13/18 09:20 Dose: 100 mg Risperidone (Risperdal Tab) 2 mg PO [facility] Last Admin: 06/16/18 21:28 Dose: 2 mg Rosuvastatin Calcium (Crestor) 5 mg PO [facility] Last Admin: 06/16/18 21:28 Dose: 5 mg Sertraline HCl (Zoloft) 100 mg PO [facility] Last Admin: 06/16/18 21:28 Dose: 100 mg - Labs Labs: 06/16/18 04:39 06/15/18 07:04 PT 13.1 SECONDS (9.7-12.2) H 06/09/18 17:52 INR 1.2 06/09/18 17:52 APTT 29 SECONDS (21-34) 06/09/18 17:52 - Constitutional Appears: Non-toxic, No Acute Distress - Head Exam Head Exam: ATRAUMATIC, NORMOCEPHALIC - Eye Exam Eye Exam: EOMI, Normal appearance - ENT Exam ENT Exam: Mucous Membranes Moist, Normal Exam - Neck Exam Neck Exam: Normal Inspection - Respiratory Exam Respiratory Exam: Clear to Ausculation Bilateral, NORMAL BREATHING PATTERN. absent: Rales, Rhonchi, Wheezes - Cardiovascular Exam Cardiovascular Exam: REGULAR RHYTHM, +S1, +S2 - GI/Abdominal Exam GI & Abdominal Exam: Soft, Normal Bowel Sounds - Extremities Exam Extremities Exam: Full ROM, Normal Inspection. absent: Pedal Edema, Tenderness - Back Exam Back Exam: NORMAL INSPECTION - Neurological Exam Neurological Exam: Alert, Awake, Oriented x3 - Psychiatric Exam Psychiatric exam: Normal Affect, Normal Mood - Skin Skin Exam: Dry, Intact, Normal Color, Warm Assessment and Plan - Assessment and Plan (Free Text) Plan: CHF exacerbation Hx of HFpEF and Renal insufficiency -pt in no acute distress, chest pain subsided -serial troponins wnl -BNP 5240 on admission -EKG (06/10): NSR 82 bpm -Cardiology (Dr. Fraser) on case -LAD has a mid high-grade 85-90% stenosis at the bifurcation of the diagonal -LVEF 40-45% -PCI of mid-LAD - follow official report -CXR (06/10): elliptical shaped opacity in R medial lung base representing atelectasis and/or infiltrate. minimal linear atelectasis LLL field suspect small b/l effusions -Pt has had thoracentesis during last admission in late April -Echo (04/2018): LVH, 55-60% EF, Mild AR, Mild pulmonary hypertension, mild to moderate AR, Grade I abnormal relaxation pattern. -Lasix 40 IV daily: held -Coreg 6.25 mg PO BID -Losartan 100 mg PO daily: held -Norvasc 10 mg PO daily Hypertensive urgency, improved -pt asymptomatic, continue to monitor -Losartan 100 mg PO daily held -Norvasc 10 mg PO daily -Coreg 6.25 mg PO BID -Hydralazine 50 mg PO BID CKD stage 4 -Cr 2.6 (06/15), continue to monitor -total urine protein excretion elevated -Nephrology recs (Dr. Bey) appreciated -lasix held for PCI as pt is at risk for contrast nephropathy -IVF pre-PCI started by cardio -EPO Hx of IDDM2 -A1C 6.4 -ISS low -Accucheck ACHS -hypoglycemic protocol Hx of HLD -Crestor 5 mg PO QHS Hx of schizophrenia, depression -Risperdal 2 mg PO QHS -Sertraline 100 mg PO QHS -Depakote 250 mg PO BID Hx of iron deficiency anemia -Hgb ranges from 8-10 in the past, no signs of acute bleeding on admission -c/w ferrous sulfate 325 mg PO BID Ppx, Diet, Disposition -DVT ppx: scds, heparin -GI ppx: not indicated at this time -Diet: HHD Dispo: PCI scheduled today (06/16) at [place]. Lasix, Losartan held as patient is at risk for contrast nephropathy. F/U further cardio recs.
[2018-06-17 07:34] LABS: BASO % 0.5 % (0.0-2.0); EOS # 0.2 K/uL (0.0-0.7); EOS % 4.3 % (0.0-4.0); HEMOGLOBIN 8.1 g/dL (11.0-16.0); LYMPH # 0.9 K/uL (1.0-4.3); LYMPH % 15.8 % (20.0-40.0); MEAN CORPUSCULAR HGB CONC 33.7 g/dL (33.0-37.0); MONO # 0.4 K/uL (0.0-0.8); MONO % 7.2 % (0.0-10.0); NEUT # 3.9 K/uL (1.8-7.0); NEUT % 72.2 % (50.0-75.0); RBC 2.7 Mil/uL (3.80-5.20); RED CELL DISTRIBUTION WIDTH 13.4 % (11.5-14.5); WHITE BLOOD COUNT 5.5 K/uL (4.8-10.8)
[2018-06-17 08:05] LABS: CALCIUM 8.6 mg/dl (8.6-10.4)
--- NOTE | 2018-06-17 08:22 | CP.PCM.DIS ---
<Ho Wright - Last Filed: 06/17/18 08:22> Provider - Provider Date of Admission: 06/13/18 13:43 Attending physician: Sae Phelps DO Consults: 06/10/18 06:00 Cardiology Consult Routine Comment: Consulting Provider: Julian Fraser Consulting Physician: Julian Fraser Reason for Consult: Hx of HFpEF, HTN, presented with CP, pleural effusion. Known to you. Nephrology Consult Routine Comment: Consulting Provider: Evan Bey Consulting Physician: Evan Bey Reason for Consult: Hx of CKD, presented with pleural effusion. Known to you. Hospital Course - Lab Results Lab Results: Micro Results 06/10/18 07:06 Urine,Clean Catch Urine Culture - Final Coagulase Neg Staphylococcus Most Recent Lab Values WBC 5.5 K/uL (4.8-10.8) 06/17/18 07:24 RBC 2.70 Mil/uL (3.80-5.20) L 06/17/18 07:24 Hgb 8.1 g/dL (11.0-16.0) L 06/17/18 07:24 Hct 24.0 % (34.0-47.0) L 06/17/18 07:24 MCV 89.0 fL (81.0-99.0) 06/17/18 07:24 MCH 30.0 pg (27.0-31.0) 06/17/18 07:24 MCHC 33.7 g/dL (33.0-37.0) 06/17/18 07:24 RDW 13.4 % (11.5-14.5) 06/17/18 07:24 Plt Count 156 K/uL (130-400) 06/17/18 07:24 MPV 8.0 fL (7.2-11.7) 06/17/18 07:24 Neut % (Auto) 72.2 % (50.0-75.0) 06/17/18 07:24 Lymph % (Auto) 15.8 % (20.0-40.0) L 06/17/18 07:24 [place] % (Auto) 7.2 % (0.0-10.0) 06/17/18 07:24 Eos % (Auto) 4.3 % (0.0-4.0) H 06/17/18 07:24 Baso % (Auto) 0.5 % (0.0-2.0) 06/17/18 07:24 Neut # (Auto) 3.9 K/uL (1.8-7.0) 06/17/18 07:24 Lymph # (Auto) 0.9 K/uL (1.0-4.3) L 06/17/18 07:24 [place] # (Auto) 0.4 K/uL (0.0-0.8) 06/17/18 07:24 Eos # (Auto) 0.2 K/uL (0.0-0.7) 06/17/18 07:24 Baso # (Auto) 0.0 K/uL (0.0-0.2) 06/17/18 07:24 PT 13.1 SECONDS (9.7-12.2) H 06/09/18 17:52 INR 1.2 06/09/18 17:52 APTT 29 SECONDS (21-34) 06/09/18 17:52 Puncture Site Arteral 06/14/18 10:44 pCO2 51 mm/Hg (35-45) H 06/14/18 10:44 pO2 53 mm/Hg (30-55) 06/14/18 10:51 HCO3 27.0 mmol/L (21-28) 06/14/18 10:44 ABG pH 7.36 (7.35-7.45) 06/14/18 10:44 ABG Total CO2 30.4 mmol/L (22-28) H 06/14/18 10:44 ABG O2 Saturation 96.2 % (95-98) 06/14/18 10:44 ABG Base Excess 2.7 mmol/L (-2.0-3.0) 06/14/18 10:44 ABG Hemoglobin 9.9 g/dL (11.7-17.4) L 06/14/18 10:44 ABG Carboxyhemoglobin 1.9 % (0.5-1.5) H 06/14/18 10:44 POC ABG HHb (Measured) 3.7 % (0.0-5.0) 06/14/18 10:44 ABG Methemoglobin 0.8 % (0.0-3.0) 06/14/18 10:44 Fredi Test Na 06/14/18 10:44 VBG pH 7.35 (7.32-7.43) 06/14/18 10:51 VBG pCO2 49 mmHg (40-60) 06/14/18 10:51 VBG HCO3 25.2 mmol/L 06/14/18 10:51 VBG Total CO2 28.6 mmol/L (22-28) H 06/14/18 10:51 VBG O2 Sat (Calc) 90.3 % (40-65) H 06/14/18 10:51 VBG Base Excess 0.8 mmol/L (0.0-2.0) 06/14/18 10:51 VBG Potassium 5.0 mmol/L (3.6-5.2) 06/14/18 10:51 Hgb O2 Saturation 93.7 % (95.0-98.0) L 06/14/18 10:44 Sodium 137.0 mmol/l (132-148) 06/14/18 10:51 Chloride 105.0 mmol/L (98-107) 06/14/18 10:51 Glucose 133 mg/dl (65-105) H 06/14/18 10:51 Lactate 1.0 mmol/L (0.7-2.1) 06/14/18 10:51 Sodium 132 mmol/L (132-148) 06/17/18 07:24 Potassium 5.1 mmol/L (3.6-5.2) 06/17/18 07:24 Chloride 101 mmol/L (98-107) 06/17/18 07:24 Carbon Dioxide 23 mmol/L (22-30) 06/17/18 07:24 Anion Gap 13 (10-20) 06/17/18 07:24 BUN 36 mg/dL (7-17) H 06/17/18 07:24 Creatinine 2.7 mg/dL (0.7-1.2) H 06/17/18 07:24 Est GFR ( Amer) 22 06/17/18 07:24 Est GFR (Non-Af Amer) 18 06/17/18 07:24 POC Glucose (mg/dL) 184 mg/dL (65-110) H 06/16/18 19:45 Random Glucose 182 mg/dL (65-105) H D 06/17/18 07:24 Hemoglobin A1c 6.4 % (4.2-6.5) 06/12/18 09:55 Calcium 8.6 mg/dl (8.6-10.4) 06/17/18 07:24 Phosphorus 4.7 mg/dL (2.5-4.5) H 06/16/18 04:39 Magnesium 2.2 mg/dL (1.6-2.3) 06/16/18 04:39 % Saturation 18 (20-55) L 06/16/18 04:39 Ferritin 147.0 ng/mL 06/16/18 04:39 Total Bilirubin 0.6 mg/dL (0.2-1.3) 06/15/18 07:04 AST 19 U/L (14-36) 06/15/18 07:04 ALT 13 U/L (9-52) 06/15/18 07:04 Alkaline Phosphatase 71 U/L (38-126) 06/15/18 07:04 Total Creatine Kinase < 20 U/L (30-135) L 06/10/18 07:27 CK-MB (Mass) 0.55 ng/mL (0.0-3.38) 06/10/18 07:27 Troponin I < 0.0120 ng/mL (0.00-0.120) 06/10/18 07:27 NT-Pro-B Natriuret Pep 3700 pg/mL (0-900) H 06/11/18 09:17 Total Protein 7.1 g/dL (6.3-8.3) 06/15/18 07:04 Albumin 3.8 g/dL (3.5-5.0) 06/15/18 07:04 Globulin 3.3 gm/dL (2.2-3.9) 06/15/18 07:04 Albumin/Globulin Ratio 1.2 (1.0-2.1) 06/15/18 07:04 PTH Intact Whole Molec 62 pg/mL (14-64) 06/11/18 09:17 Venous Blood Potassium 5.0 mmol/L (3.6-5.2) 06/14/18 10:51 Urine Color Straw (YELLOW) 06/09/18 18:34 Urine Clarity Clear (Clear) 06/09/18 18:34 Urine pH 6.0 (5.0-8.0) 06/09/18 18:34 Ur Specific [place] 1.006 (1.003-1.030) 06/09/18 18:34 Urine Protein 2+ mg/dL (NEGATIVE) H 06/09/18 18:34 Urine Glucose (UA) Normal mg/dL (Normal) 06/09/18 18:34 Urine Ketones Negative mg/dL (NEGATIVE) 06/09/18 18:34 Urine Blood 1+ (NEGATIVE) H 06/09/18 18:34 Urine Nitrate Negative (NEGATIVE) 06/09/18 18:34 Urine Bilirubin Negative (NEGATIVE) 06/09/18 18:34 Urine Urobilinogen Normal mg/dL (0.2-1.0) 06/09/18 18:34 Ur Leukocyte Esterase 1+ Juan Jose/uL (Negative) H 06/09/18 18:34 Urine WBC (Auto) 10 /hpf (0-5) H 06/09/18 18:34 Urine RBC (Auto) 6 /hpf (0-3) H 06/09/18 18:34 Ur Squamous Epith Cells 2 /hpf (0-5) 06/09/18 18:34 Urine Bacteria Occ (<OCC) H 06/09/18 18:34 Urine Collection Time 24 HRS 06/11/18 13:06 Urine Total Volume 3575 mL 06/11/18 13:06 Ur Protein 24 Hr Calc 3396.3 mg/24hr (42-225) H 06/11/18 13:06 Discharge Exam - Head Exam Head Exam: ATRAUMATIC, NORMAL INSPECTION, NORMOCEPHALIC Discharge Plan - Discharge Medications Prescriptions: amLODIPine [Norvasc] 10 mg PO DAILY #30 tab amLODIPine [Norvasc] 10 mg PO DAILY #30 tab Aspirin [Aspirin EC] 81 mg PO DAILY 30 Days tablet. Aspirin [Aspirin Chewable] 81 mg PO DAILY #30 chew Carvedilol [Coreg] 6.25 mg PO BID #60 tab Clopidogrel [Plavix] 75 mg PO DAILY #30 tab Divalproex [Depakote DR] 500 mg PO DAILY #30 tcp Ferrous Sulfate [Feosol] 325 mg PO BID #60 tab Furosemide [Lasix] 40 mg PO DAILY #30 tablet Furosemide [Lasix] 40 mg PO DAILY #30 tab hydrALAZINE [Apresoline] 50 mg PO BID #60 tab Losartan [Cozaar] 100 mg PO DAILY #30 tab Losartan Potassium [Cozaar] 100 mg PO DAILY #30 tablet metFORMIN [glucOPHAGE] 500 mg PO BID #60 tab Simvastatin 20 mg PO DAILY #30 tablet Simvastatin 10 mg PO HS #30 tablet - Follow Up Plan Condition: STABLE Disposition: HOME/ ROUTINE Instructions: Renal Failure Diet (DC) Additional Instructions: Patient should not take Lasix and Losartan for at least 1 day. <Sae Phelps - Last Filed: 06/17/18 12:09> Provider - Provider Date of Admission: 06/13/18 13:43 Attending physician: Sae Phelps DO Consults: 06/10/18 06:00 Cardiology Consult Routine Comment: Consulting Provider: Julian Fraser Consulting Physician: Julian Fraser Reason for Consult: Hx of HFpEF, HTN, presented with CP, pleural effusion. Known to you. Nephrology Consult Routine Comment: Consulting Provider: Evan Bey Consulting Physician: Evan Bey Reason for Consult: Hx of CKD, presented with pleural effusion. Known to you. Time Spent in preparation of Discharge (in minutes): 29 Hospital Course - Lab Results Lab Results: Micro Results 06/10/18 07:06 Urine,Clean Catch Urine Culture - Final Coagulase Neg Staphylococcus Most Recent Lab Values WBC 5.5 K/uL (4.8-10.8) 06/17/18 07:24 RBC 2.70 Mil/uL (3.80-5.20) L 06/17/18 07:24 Hgb 8.1 g/dL (11.0-16.0) L 06/17/18 07:24 Hct 24.0 % (34.0-47.0) L 06/17/18 07:24 MCV 89.0 fL (81.0-99.0) 06/17/18 07:24 MCH 30.0 pg (27.0-31.0) 06/17/18 07:24 MCHC 33.7 g/dL (33.0-37.0) 06/17/18 07:24 RDW 13.4 % (11.5-14.5) 06/17/18 07:24 Plt Count 156 K/uL (130-400) 06/17/18 07:24 MPV 8.0 fL (7.2-11.7) 06/17/18 07:24 Neut % (Auto) 72.2 % (50.0-75.0) 06/17/18 07:24 Lymph % (Auto) 15.8 % (20.0-40.0) L 06/17/18 07:24 [place] % (Auto) 7.2 % (0.0-10.0) 06/17/18 07:24 Eos % (Auto) 4.3 % (0.0-4.0) H 06/17/18 07:24 Baso % (Auto) 0.5 % (0.0-2.0) 06/17/18 07:24 Neut # (Auto) 3.9 K/uL (1.8-7.0) 06/17/18 07:24 Lymph # (Auto) 0.9 K/uL (1.0-4.3) L 06/17/18 07:24 [place] # (Auto) 0.4 K/uL (0.0-0.8) 06/17/18 07:24 Eos # (Auto) 0.2 K/uL (0.0-0.7) 06/17/18 07:24 Baso # (Auto) 0.0 K/uL (0.0-0.2) 06/17/18 07:24 PT 13.1 SECONDS (9.7-12.2) H 06/09/18 17:52 INR 1.2 06/09/18 17:52 APTT 29 SECONDS (21-34) 06/09/18 17:52 Puncture Site Arteral 06/14/18 10:44 pCO2 51 mm/Hg (35-45) H 06/14/18 10:44 pO2 53 mm/Hg (30-55) 06/14/18 10:51 HCO3 27.0 mmol/L (21-28) 06/14/18 10:44 ABG pH 7.36 (7.35-7.45) 06/14/18 10:44 ABG Total CO2 30.4 mmol/L (22-28) H 06/14/18 10:44 ABG O2 Saturation 96.2 % (95-98) 06/14/18 10:44 ABG Base Excess 2.7 mmol/L (-2.0-3.0) 06/14/18 10:44 ABG Hemoglobin 9.9 g/dL (11.7-17.4) L 06/14/18 10:44 ABG Carboxyhemoglobin 1.9 % (0.5-1.5) H 06/14/18 10:44 POC ABG HHb (Measured) 3.7 % (0.0-5.0) 06/14/18 10:44 ABG Methemoglobin 0.8 % (0.0-3.0) 06/14/18 10:44 Fredi Test Na 06/14/18 10:44 VBG pH 7.35 (7.32-7.43) 06/14/18 10:51 VBG pCO2 49 mmHg (40-60) 06/14/18 10:51 VBG HCO3 25.2 mmol/L 06/14/18 10:51 VBG Total CO2 28.6 mmol/L (22-28) H 06/14/18 10:51 VBG O2 Sat (Calc) 90.3 % (40-65) H 06/14/18 10:51 VBG Base Excess 0.8 mmol/L (0.0-2.0) 06/14/18 10:51 VBG Potassium 5.0 mmol/L (3.6-5.2) 06/14/18 10:51 Hgb O2 Saturation 93.7 % (95.0-98.0) L 06/14/18 10:44 Sodium 137.0 mmol/l (132-148) 06/14/18 10:51 Chloride 105.0 mmol/L (98-107) 06/14/18 10:51 Glucose 133 mg/dl (65-105) H 06/14/18 10:51 Lactate 1.0 mmol/L (0.7-2.1) 06/14/18 10:51 Sodium 132 mmol/L (132-148) 06/17/18 07:24 Potassium 5.1 mmol/L (3.6-5.2) 06/17/18 07:24 Chloride 101 mmol/L (98-107) 06/17/18 07:24 Carbon Dioxide 23 mmol/L (22-30) 06/17/18 07:24 Anion Gap 13 (10-20) 06/17/18 07:24 BUN 36 mg/dL (7-17) H 06/17/18 07:24 Creatinine 2.7 mg/dL (0.7-1.2) H 06/17/18 07:24 Est GFR ( Amer) 22 06/17/18 07:24 Est GFR (Non-Af Amer) 18 06/17/18 07:24 POC Glucose (mg/dL) 184 mg/dL (65-110) H 06/16/18 19:45 Random Glucose 182 mg/dL (65-105) H D 06/17/18 07:24 Hemoglobin A1c 6.4 % (4.2-6.5) 06/12/18 09:55 Calcium 8.6 mg/dl (8.6-10.4) 06/17/18 07:24 Phosphorus 4.7 mg/dL (2.5-4.5) H 06/16/18 04:39 Magnesium 2.2 mg/dL (1.6-2.3) 06/16/18 04:39 % Saturation 18 (20-55) L 06/16/18 04:39 Ferritin 147.0 ng/mL 06/16/18 04:39 Total Bilirubin 0.6 mg/dL (0.2-1.3) 06/15/18 07:04 AST 19 U/L (14-36) 06/15/18 07:04 ALT 13 U/L (9-52) 06/15/18 07:04 Alkaline Phosphatase 71 U/L (38-126) 06/15/18 07:04 Total Creatine Kinase < 20 U/L (30-135) L 06/10/18 07:27 CK-MB (Mass) 0.55 ng/mL (0.0-3.38) 06/10/18 07:27 Troponin I < 0.0120 ng/mL (0.00-0.120) 06/10/18 07:27 NT-Pro-B Natriuret Pep 3700 pg/mL (0-900) H 06/11/18 09:17 Total Protein 7.1 g/dL (6.3-8.3) 06/15/18 07:04 Albumin 3.8 g/dL (3.5-5.0) 06/15/18 07:04 Globulin 3.3 gm/dL (2.2-3.9) 06/15/18 07:04 Albumin/Globulin Ratio 1.2 (1.0-2.1) 06/15/18 07:04 PTH Intact Whole Molec 62 pg/mL (14-64) 06/11/18 09:17 Venous Blood Potassium 5.0 mmol/L (3.6-5.2) 06/14/18 10:51 Urine Color Straw (YELLOW) 06/09/18 18:34 Urine Clarity Clear (Clear) 06/09/18 18:34 Urine pH 6.0 (5.0-8.0) 06/09/18 18:34 Ur Specific [place] 1.006 (1.003-1.030) 06/09/18 18:34 Urine Protein 2+ mg/dL (NEGATIVE) H 06/09/18 18:34 Urine Glucose (UA) Normal mg/dL (Normal) 06/09/18 18:34 Urine Ketones Negative mg/dL (NEGATIVE) 06/09/18 18:34 Urine Blood 1+ (NEGATIVE) H 06/09/18 18:34 Urine Nitrate Negative (NEGATIVE) 06/09/18 18:34 Urine Bilirubin Negative (NEGATIVE) 06/09/18 18:34 Urine Urobilinogen Normal mg/dL (0.2-1.0) 06/09/18 18:34 Ur Leukocyte Esterase 1+ [place]/uL (Negative) H 06/09/18 18:34 Urine WBC (Auto) 10 /hpf (0-5) H 06/09/18 18:34 Urine RBC (Auto) 6 /hpf (0-3) H 06/09/18 18:34 Ur Squamous Epith Cells 2 /hpf (0-5) 06/09/18 18:34 Urine Bacteria Occ (<OCC) H 06/09/18 18:34 Urine Collection Time 24 HRS 06/11/18 13:06 Urine Total Volume 3575 mL 06/11/18 13:06 Ur Protein 24 Hr Calc 3396.3 mg/24hr (42-225) H 06/11/18 13:06 - Hospital Course Hospital Course: This is a 58 year old female who came on 06/09 with the chief complaint of chest pain and back pain. She has a history of CHF with severe mitral regurgitation, CKD, IDDM2, HTN, HLD, schizophrenia, depression. When she initially presented to the ER she had very elevated BP readings. She had a baseline creatine of around 2.5 to 2.7 and her medications had to be held to help bring down the creatine slowly. Because of her chest symptoms cardiology did a diagnostic catherization on 06/14 which showed there was a mid LAD stenosis of 85 to 90% and EF of 40 to 45% Because of her CKD, some of her medications such as lasix, ARBs had to be on hold. On 06/16 she was transported to [facility] and had further cardiac intervention including 2 drug eluting stents the mid LAD. She will need to continue with the Plavix, ASA, Statin, Coreg. She has been able to walk on her own and has been ambulating in the hallway without developing shortness of breath or chest pain. Discharge Exam - Eye Exam Eye Exam: EOMI, Normal appearance - Respiratory Exam Respiratory Exam: Clear to PA & Lateral, NORMAL BREATHING PATTERN, UNREMARKABLE - Cardiovascular Exam Cardiovascular Exam: REGULAR RHYTHM - GI/Abdominal Exam GI & Abdominal Exam: Normal Bowel Sounds, Unremarkable - Neurological Exam Neurological exam: Alert, Oriented x3 - Psychiatric Exam Psychiatric exam: Normal Affect, Normal Mood - Skin Skin Exam: Normal Color, Warm
[2018-06-17] MEDS: (Novolin R) Insulin Human Regular 100 units/ml vial SC SCH ×3 (08:30→12:50)
[2018-06-17] MEDS: Divalproex 250 mg DR Tab PO SCH ×2 (08:33→09:28)
[2018-06-17 08:49] VITALS: PULSE 92
[2018-06-17 08:58] VITALS: BP 142/70; TEMP 98.7; O2SAT 95
--- NOTE | 2018-06-17 09:37 | CP.PCM.PN ---
Subjective - Date & Time of Evaluation Date of Evaluation: 06/17/18 Time of Evaluation: 09:35 - Subjective Subjective: no complaints no chest pain no sob no nausea no vomiting no abominal pain mild arthralgias no urinary issues no headache no pruritis for transfer to [facility] for cath Objective - Vital Signs/Intake and Output Vital Signs (last 24 hours): Temp Pulse Resp BP Pulse Ox 98.7 F 92 H 20 142/70 95 06/17/18 07:00 06/17/18 07:30 06/17/18 07:00 06/17/18 07:00 06/17/18 07:00 - Medications Medications: Current Medications Amlodipine Besylate (Norvasc) 10 mg PO DAILY [facility] Last Admin: 06/17/18 09:28 Dose: 10 mg Aspirin (Aspirin Chewable) 81 mg PO DAILY [facility] Last Admin: 06/17/18 09:28 Dose: 81 mg Carvedilol (Coreg) 6.25 mg PO BID [facility] Last Admin: 06/17/18 09:28 Dose: 6.25 mg Clopidogrel Bisulfate (Plavix) 75 mg PO DAILY [facility] Dextrose (Dextrose 50% Inj) 0 ml IV STAT PRN; Protocol PRN Reason: Hypoglycemia Protocol Dextrose (Glutose 15) 0 gm PO ONCE PRN; Protocol PRN Reason: Hypoglycemia Protocol Divalproex Sodium (Depakote Dr) 250 mg PO BID [facility] Last Admin: 06/17/18 09:28 Dose: 250 mg Epoetin Donald (Procrit) 10,000 unit SC TTS [facility] Last Admin: 06/15/18 10:30 Dose: Not Given Ferrous Sulfate (Feosol) 325 mg PO BID [facility] Last Admin: 06/17/18 09:29 Dose: 325 mg Furosemide (Lasix) 40 mg PO DAILY [facility] Last Admin: 06/13/18 09:20 Dose: 40 mg Glucagon (Glucagen Diagnostic Kit) 0 mg IM STAT PRN; Protocol PRN Reason: Hypoglycemia Protocol Heparin Sodium (Porcine) (Heparin) 5,000 units SC Q12 [facility] Last Admin: 06/17/18 09:29 Dose: 5,000 units Hydralazine HCl (Apresoline) 50 mg PO BID [facility] Last Admin: 06/17/18 09:28 Dose: 50 mg Dextrose (Dextrose 5% In Water 1000 Ml) 1,000 mls @ 0 mls/hr IV .Q0M PRN; Protocol PRN Reason: Hypoglycemia Protocol Insulin Human Regular (Novolin R) 0 unit SC ACHS JOSE LUIS; Protocol Last Admin: 06/17/18 08:34 Dose: Not Given Losartan Potassium (Cozaar) 100 mg PO DAILY [facility] Last Admin: 06/13/18 09:20 Dose: 100 mg Risperidone (Risperdal Tab) 2 mg PO HS [facility] Last Admin: 06/16/18 21:28 Dose: 2 mg Rosuvastatin Calcium (Crestor) 5 mg PO HS [facility] Last Admin: 06/16/18 21:28 Dose: 5 mg Sertraline HCl (Zoloft) 100 mg PO HS [facility] Last Admin: 06/16/18 21:28 Dose: 100 mg - Labs Labs: 06/17/18 07:24 06/17/18 07:24 PT 13.1 SECONDS (9.7-12.2) H 06/09/18 17:52 INR 1.2 06/09/18 17:52 APTT 29 SECONDS (21-34) 06/09/18 17:52 - Constitutional Appears: Non-toxic, No Acute Distress - Head Exam Head Exam: ATRAUMATIC, NORMAL INSPECTION - Eye Exam Eye Exam: EOMI - ENT Exam ENT Exam: Mucous Membranes Moist - Neck Exam Neck Exam: Full ROM. absent: Lymphadenopathy - Respiratory Exam Respiratory Exam: Clear to Ausculation Bilateral. absent: Accessory Muscle Use - Cardiovascular Exam Cardiovascular Exam: REGULAR RHYTHM. absent: Rubs - GI/Abdominal Exam GI & Abdominal Exam: Soft. absent: Tenderness - Neurological Exam Neurological Exam: Alert, Awake, Oriented x3 Assessment and Plan - Assessment and Plan (Free Text) Assessment: stable ckd 4 s/p hydration PCI planned medicines reviewed f/u in office as outpatient
== END 2018-06-17 14:27 | disposition home or self-care (01) | DRG 175 ==
LOC: C.ER 15:54 → UNDOADMIN 19:33 → C.3T 19:33 → INTOOBSV 20:27 → UNDOADMOB 20:27 → C.9E 21:02 → C.3T 21:02 → C.9E 21:02 → C.3T 21:02 → C.9E 21:03 → C.6T 21:03 → C.9E 21:03 → C.6T 21:03 → INTOOBSV 06-13 13:43 → OBSVTOIN 06-13 13:43 → C.6T 06-16 07:48
PROVIDERS: ADMIT Hospitalist; ATTEND Hospitalist
PROC: 4A023N8 Measurement of Cardiac Sampling and Pressure, Bilateral, Percutaneous Approach (ICD-10-PCS; 2018-06-14)
PROC: B2161ZZ Fluoroscopy of Right and Left Heart using Low Osmolar Contrast (ICD-10-PCS; 2018-06-14)
PROC: B2111ZZ Fluoroscopy of Multiple Coronary Arteries using Low Osmolar Contrast (ICD-10-PCS; 2018-06-14)
PROC: 027035Z Dilation of Coronary Artery, One Artery with Two Drug-eluting Intraluminal Devices, Percutaneous Approach (ICD-10-PCS; principal; 2018-06-16)
DX: I13.0 Hypertensive heart and chronic kidney disease with heart failure and stage 1 through stage 4 chronic kidney disease, or unspecified chronic kidney disease (principal); I25.118 Atherosclerotic heart disease of native coronary artery with other forms of angina pectoris; I50.33 Acute on chronic diastolic (congestive) heart failure; I16.0 Hypertensive urgency; N17.9 Acute kidney failure, unspecified; E11.22 Type 2 diabetes mellitus with diabetic chronic kidney disease; N18.4 Chronic kidney disease, stage 4 (severe); I27.20 Pulmonary hypertension, unspecified; E87.5 Hyperkalemia; I34.0 Nonrheumatic mitral (valve) insufficiency; D64.9 Anemia, unspecified; F20.9 Schizophrenia, unspecified; E78.5 Hyperlipidemia, unspecified; E78.00 Pure hypercholesterolemia, unspecified; Z79.4 Long term (current) use of insulin; Z87.440 Personal history of urinary (tract) infections; Z98.51 Tubal ligation status; Z80.0 Family history of malignant neoplasm of digestive organs; Z80.3 Family history of malignant neoplasm of breast; Z83.3 Family history of diabetes mellitus

== ENCOUNTER 2018-07-28 09:39 | Emergency (ER) | payer MEDICAID ==
[2018-07-28 09:40] VITALS: BMI 29.2
[2018-07-28 11:15] LABS: BASO % 0.6 % (0.0-2.0); EOS % 0.3 % (0.0-4.0); HEMOGLOBIN 9.4 g/dL (11.0-16.0); LYMPH # 0.8 K/uL (1.0-4.3); LYMPH % 14.3 % (20.0-40.0); MEAN CELL VOLUME 89.1 fL (81.0-99.0); MEAN CORPUSCULAR HEMOGLOBIN 31.6 pg (27.0-31.0); MEAN CORPUSCULAR HGB CONC 35.5 g/dL (33.0-37.0); MEAN PLATELET VOLUME 7.6 fL (7.2-11.7); MONO # 0.1 K/uL (0.0-0.8); MONO % 2.7 % (0.0-10.0); NEUT # 4.4 K/uL (1.8-7.0); NEUT % 82.1 % (50.0-75.0); RBC 2.98 Mil/uL (3.80-5.20); RED CELL DISTRIBUTION WIDTH 13.2 % (11.5-14.5); WHITE BLOOD COUNT 5.3 K/uL (4.8-10.8)
[2018-07-28 11:23] LABS: HCG,QUALITATIVE URINE NEGATIVE (NEGATIVE)
[2018-07-28 11:28] LABS: ALB/GLOB RATIO 1.1 (1.0-2.1); ALBUMIN 4.6 g/dL (3.5-5.0); CALCIUM 9.8 mg/dl (8.6-10.4)
[2018-07-28 11:40] LABS: SQUAMOUS EPITHIAL 2 /hpf (0-5); URINE BACTERIA MANY (<OCC); URINE BILIRUBIN NEGATIVE (NEGATIVE); URINE BLOOD 2+ (NEGATIVE); URINE CLARITY Hazy (Clear); URINE COLOR Yellow (YELLOW); URINE GLUCOSE (UA) NORMAL (Normal); URINE LEUKOCYTE ESTERASE 3+ Leu/uL (Negative); URINE PROTEIN 2+ mg/dL (NEGATIVE); URINE UROBILINOGEN NORMAL mg/dL (0.2-1.0); WBC CLUMPS MANY /hpf
--- NOTE | 2018-07-28 11:49 | CT ---
Date of service: 07/28/2018 PROCEDURE: CT Abdomen and Pelvis without intravenous contrast HISTORY: Stomach pain and vomiting. COMPARISON: 04/13/2018. CT abdomen pelvis. CT abdomen and pelvis. TECHNIQUE: Unenhanced. Neither IV nor oral contrast administered Radiation dose: Total exam DLP = 527.02 mGy-cm. This CT exam was performed using one or more of the following dose reduction techniques: Automated exposure control, adjustment of the mA and/or kV according to patient size, and/or use of iterative reconstruction technique. FINDINGS: LOWER THORAX: Resolution of previously identified pleural effusions. Small residual dependent atelectasis basilar segment lower lobe. LIVER: Unremarkable. No gross lesion or ductal dilatation. GALLBLADDER AND BILE DUCTS: Unremarkable. PANCREAS: Unremarkable. No gross lesion or ductal dilatation. SPLEEN: Unremarkable. ADRENALS: Unremarkable. No mass. KIDNEYS AND URETERS: Unremarkable. No hydronephrosis. No solid mass. VASCULATURE: Atherosclerotic calcification and mural plaque present. Findings are seen throughout the aorta BOWEL: Diverticulosis without an acute inflammatory component or other associated pathologic process. APPENDIX: Unremarkable. Normal appendix. PERITONEUM: Unremarkable. No free fluid. No free air. LYMPH NODES: Unremarkable. No enlarged lymph nodes. BLADDER: Bladder wall thickening likely related to under filling. No focal urinary bladder wall abnormalities. REPRODUCTIVE: Unremarkable. BONES: No acute fracture. OTHER FINDINGS: None. IMPRESSION: No significant or acute findings to account for/ related to the clinical presentation. Additional benign and/or incidental findings described above.
--- NOTE | 2018-07-28 11:52 | C.PDOC ---
History Of Present Illness 58 y/o female with a PMHx of schizophrenia and diabetes presents to the ED complaining of left flank pain radiating around to anterior abdomen. Pain is described as sharp and constant. She denies any nausea, vomiting, dysuria, fever, chills, or diarrhea. Time Seen by Provider: 07/28/18 09:50 Chief Complaint (Nursing): Abdominal Pain History Per: Patient History/Exam Limitations: no limitations Onset/Duration Of Symptoms: Days Current Symptoms Are (Timing): Still Present Location Of Pain/Discomfort: Other (Left flank) Past Medical History Reviewed: Historical Data, Nursing Documentation, Vital Signs Vital Signs: Last Vital Signs Temp 98.5 F 07/28/18 09:42 Pulse 89 07/28/18 09:42 Resp 18 07/28/18 09:42 BP 124/77 07/28/18 09:42 Pulse Ox 99 07/28/18 09:42 - Medical History PMH: Arthritis, Depression, Diabetes, HTN, Hypercholesterolemia, Hyperlipidemia, Chronic Kidney Disease, Schizophrenia Denies: Diverticulitis Surgical History: Coronary Stent (x2), - [facility] Procedures DILATION OF 1 COR ART WITH 2 DRUG-ELUT, PERC APPROACH (06/13/18) FLUOROSCOPY OF MULT COR ART USING L OSM CONTRAST (06/13/18) FLUOROSCOPY OF RIGHT AND LEFT HEART USING L OSM CONTRAST (06/13/18) MEASURE CARDIAC SAMPL & PRESSURE, BILATERAL, PERC (06/13/18) OTHER SKIN & SUBQ I D (07/30/13) Family History: States: Unknown Family Hx - Social History Hx Tobacco Use: No Hx Alcohol Use: No Hx Substance Use: No - Immunization History Hx Tetanus Toxoid Vaccination: Yes Hx Influenza Vaccination: No Hx Pneumococcal Vaccination: No Review Of Systems Except As Marked, All Systems Reviewed And Found Negative. Constitutional: Negative for: Fever, Chills Cardiovascular: Negative for: Chest Pain Respiratory: Negative for: Shortness of Breath Gastrointestinal: Positive for: Abdominal Pain. Negative for: Nausea, Vomiting, Diarrhea Genitourinary: Negative for: Dysuria, Hematuria Musculoskeletal: Positive for: Other (Left flank pain) Neurological: Negative for: Weakness, Numbness, Dizziness Physical Exam - Physical Exam Appears: Non-toxic, No Acute Distress, Other (Obese female) Skin: Warm, Jaundice Head: Atraumatic, Normacephalic Eye(s): bilateral: PERRL, EOMI, Other (Conjunctiva appear mildly pale) Oral Mucosa: Moist Neck: Normal ROM Chest: Symmetrical Cardiovascular: Rhythm Regular, No Murmur Respiratory: Normal Breath Sounds, No Rales, No Rhonchi, No Wheezing Gastrointestinal/Abdominal: Soft, No Tenderness, No Distention Back: CVA Tenderness (Mild left CVAT), No Vertebral Tenderness Extremity: Normal ROM, No Calf Tenderness, Swelling (+1 pitting edema) Pulses: Left Radial: Normal, Right Radial: Normal Neurological/Psych: Oriented x3, Normal Speech ED Course And Treatment - Laboratory Results Result Diagrams: 07/28/18 11:12 07/28/18 11:12 Lab Results: Total Bilirubin 0.6 mg/dL (0.2-1.3) 07/28/18 11:12 AST 21 U/L (14-36) 07/28/18 11:12 ALT 29 U/L (9-52) 07/28/18 11:12 Alkaline Phosphatase 76 U/L (38-126) 07/28/18 11:12 Total Protein 8.7 g/dL (6.3-8.3) H 07/28/18 11:12 Albumin 4.6 g/dL (3.5-5.0) 07/28/18 11:12 Globulin 4.1 gm/dL (2.2-3.9) H 07/28/18 11:12 Albumin/Globulin Ratio 1.1 (1.0-2.1) 07/28/18 11:12 Lipase 110 U/L (23-300) 07/28/18 11:12 Urine Color Yellow (YELLOW) 07/28/18 11:12 Urine Clarity Hazy (Clear) 07/28/18 11:12 Urine pH 5.0 (5.0-8.0) 07/28/18 11:12 Ur Specific Hurst 1.013 (1.003-1.030) 07/28/18 11:12 Urine Protein 2+ mg/dL (NEGATIVE) H 07/28/18 11:12 Urine Glucose (UA) Normal mg/dL (Normal) 07/28/18 11:12 Urine Ketones Negative mg/dL (NEGATIVE) 07/28/18 11:12 Urine Blood 2+ (NEGATIVE) H 07/28/18 11:12 Urine Nitrate Positive (NEGATIVE) H 07/28/18 11:12 Urine Bilirubin Negative (NEGATIVE) 07/28/18 11:12 Urine Urobilinogen Normal mg/dL (0.2-1.0) 07/28/18 11:12 Ur Leukocyte Esterase 3+ Juan Jose/uL (Negative) H 07/28/18 11:12 Urine WBC (Auto) 605 /hpf (0-5) H 07/28/18 11:12 Urine RBC (Auto) 38 /hpf (0-3) H 07/28/18 11:12 Urine WBC Clumps (Auto) Many /hpf (NONE) H 07/28/18 11:12 Ur Squamous Epith Cells 2 /hpf (0-5) 07/28/18 11:12 Urine Bacteria Many (<OCC) H 07/28/18 11:12 Urine HCG, Qual Negative (NEGATIVE) 07/28/18 11:12 Urine HCG, Qual Negative (NEGATIVE) 07/28/18 11:12 O2 Sat by Pulse Oximetry: 99 (RA) Pulse Ox Interpretation: Normal - CT Scan/US CT Abdomen/Pelvis Other Rad Studies (CT/US): Read By Radiologist, Radiology Report Reviewed CT/US Interpretation: Accession No. : [id number]. Patient Name / ID : LAZARO ANDREA / [id number]. Exam Date : 07/28/2018 11:08:02 ( Approved ). Study Comment : Sex / Age : F / 58Y. Creator : Tahira Tao. Dictator : Tyler Sánchez MD. Senior Corporate Strategy Manager : Commissioning Specialist : Tyler Sánchez MD. Approver2 : Report Date : 07/28/2018 11:25:19. My Comment : . Date of service: 07/28/2018. PROCEDURE: CT Abdomen and Pelvis without intravenous contrast. HISTORY: Stomach pain and vomiting. COMPARISON: 04/13/2018. CT abdomen pelvis. CT abdomen and pelvis. TECHNIQUE: Unenhanced. Neither IV nor oral contrast administered. Radiation dose: Total exam DLP = 527.02 mGy-cm. This CT exam was performed using one or more of the following dose reduction techniques: Automated exposure control, adjustment of the mA and/or kV according to patient size, and/or use of iterative reconstruction technique. FINDINGS: LOWER THORAX: Resolution of previously identified pleural effusions. Small residual dependent atelectasis basilar segment lower lobe. LIVER: Unremarkable. No gross lesion or ductal dilatation. GALLBLADDER AND BILE DUCTS: Unremarkable. PANCREAS: Unremarkable. No gross lesion or ductal dilatation. SPLEEN: Unremarkable. ADRENALS: Unremarkable. No mass. KIDNEYS AND URETERS: Unremarkable. No h ydronephrosis. No solid mass. VASCULATURE: Atherosclerotic calcification and mural plaque present. Findings are seen throughout the aorta. BOWEL: Diverticulosis without an acute inflammatory component or other associated pathologic process. APPENDIX: Unremarkable. Normal appendix. PERITONEUM: Unremarkable. No free fluid. No free air. LYMPH NODES: Unremarkable. No enlarged lymph nodes. BLADDER: Bladder wall thickening likely related to under filling. No focal urinary bladder wall abnormalities. REPRODUCTIVE: Unremarkable. BONES: No acute fracture. OTHER FINDINGS: None. IMPRESSION: No significant or acute findings to account for/ related to the clinical presentation. Additional benign and/or incidental findings described above. Medical Decision Making Medical Decision Making: Initial Impression: flank pain, abdominal pain Differential diagnosis includes but is not limited to: pyelonephritis vs renal colic vs other abdominal pathology Initial Plan: - Blood work - Urinalysis - Urine HCG - CT Abdomen/Pelvis without contrast CT shows no acute pathology. Findings reviewed with patient. UA shows pyelonephritis. Patient remains afebrile. Given IV Rocephin and Cipro in the ED. Plan is to discharge patient home on antibiotics. Disposition Counseled Patient/Family Regarding: Studies Performed, Diagnosis, Need For Followup, Rx Given - Disposition Referrals: [facility] [Outside] Disposition: HOME/ ROUTINE Disposition Time: 15:30 Condition: IMPROVED Prescriptions: Ciprofloxacin HCl [Cipro] 500 mg PO BID #14 tab Ibuprofen [Motrin] 600 mg PO TID #15 tab Instructions: Kidney Infection (DC) Forms: Gen Discharge Inst Vincentian, [facility] (Vincentian) - POA Present On Arrival: None - Clinical Impression Clinical Impression: Pyelonephritis, acute - Scribe Statement The provider has reviewed the documentation as recorded by the Chloé Noriega Provider Attestation: All medical record entries made by the Chloé were at my direction and personally dictated by me. I have reviewed the chart and agree that the record accurately reflects my personal performance of the history, physical exam, medical decision making, and the department course for this patient. I have also personally directed, reviewed, and agree with the discharge instructions and disposition.
[2018-07-28 12:48] VITALS: RESP 16
[2018-07-28 13:02] LABS: VENOUS BLOOD GAS PCO2 45 mmHg (40-60); VENOUS BLOOD GAS PO2 31 mm/Hg (30-55); VENOUS BLOOD PH 7.38 (7.32-7.43)
[2018-07-28] MEDS ORDERED: Ciprofloxacin 400mg/200ml D5W 400 MG/200 ML BAG IVPB STA (13:46)
[2018-07-28] MEDS ORDERED: Ciprofloxacin 400mg/200ml D5W 400 MG/200 ML BAG IVPB ONE (13:56)
[2018-07-28 15:43] LABS: VENOUS BLOOD GAS BASE EXCESS -0.8 mmol/L (0.0-2.0); VENOUS BLOOD GAS PCO2 37 mmHg (40-60); VENOUS BLOOD GAS PO2 48 mm/Hg (30-55); VENOUS BLOOD PH 7.41 (7.32-7.43)
[2018-07-28 15:55] VITALS: BP 176/80; PULSE 87; TEMP 98.9; O2SAT 100
== END 2018-07-28 16:12 | disposition home or self-care (01) ==
LOC: C.ER 09:39
DX: N10 Acute pyelonephritis (principal); I12.9 Hypertensive chronic kidney disease with stage 1 through stage 4 chronic kidney disease, or unspecified chronic kidney disease; N18.9 Chronic kidney disease, unspecified; E11.22 Type 2 diabetes mellitus with diabetic chronic kidney disease; E78.00 Pure hypercholesterolemia, unspecified; Z95.5 Presence of coronary angioplasty implant and graft
CPT/HCPCS: 74176; 80053; 81001; 82803; 83690; 84703; 85025; 87040; 87086; 87181; 96365; 96367; 99284; J0696; J0744

== ENCOUNTER 2018-08-12 11:02 | Emergency (ER) | payer MEDICAID ==
[2018-08-12 11:03] VITALS: BMI 29.2
[2018-08-12] MEDS ORDERED: Sodium Chloride 0.9% 1,000 ML IV ONE (12:40)
--- NOTE | 2018-08-12 12:40 | C.PDOC ---
History Of Present Illness 58 y/o female presents to ED complaining of suprapubic discomfort for the past 2 weeks. Patient has been seen at multiple places including a hospital in [place] which she recently visited. Patient has also recently been on multip le antibiotics, most recently Keflex on 08/09/18, but she still continues to have symptoms. Otherwise she denies vaginal bleeding or discharge, nausea, vomiting, or diarrhea. She also complains of right sided back pain and right breast pain. Time Seen by Provider: 08/12/18 12:26 Chief Complaint (Nursing): Female Genitourinary History Per: Patient History/Exam Limitations: no limitations Onset/Duration Of Symptoms: Days Current Symptoms Are (Timing): Still Present Past Medical History Reviewed: Historical Data, Nursing Documentation, Vital Signs Vital Signs: Last Vital Signs Temp 99.6 F 08/12/18 11:28 Pulse 82 08/12/18 11:28 Resp 16 08/12/18 11:28 BP 155/79 H 08/12/18 11:28 Pulse Ox 99 08/12/18 11:28 Primary Care Provider: Isis Roberson - Medical History PMH: Arthritis, Depression, Diabetes, HTN, Hypercholesterolemia, Hyperlipidemia, Chronic Kidney Disease, Schizophrenia Denies: Diverticulitis Surgical History: Coronary Stent (x2), - [facility] Procedures DILATION OF 1 COR ART WITH 2 DRUG-ELUT, PERC APPROACH (06/13/18) FLUOROSCOPY OF MULT COR ART USING L OSM CONTRAST (06/13/18) FLUOROSCOPY OF RIGHT AND LEFT HEART USING L OSM CONTRAST (06/13/18) MEASURE CARDIAC SAMPL & PRESSURE, BILATERAL, PERC (06/13/18) OTHER SKIN & SUBQ I D (07/30/13) Family History: States: No Known Family Hx - Social History Hx Tobacco Use: No Hx Alcohol Use: No Hx Substance Use: No - Immunization History Hx Tetanus Toxoid Vaccination: Yes Hx Influenza Vaccination: No Hx Pneumococcal Vaccination: No Review Of Systems Constitutional: Negative for: Fever, Chills Gastrointestinal: Positive for: Abdominal Pain (suprapubic pain). Negative for: Nausea, Vomiting, Diarrhea Genitourinary: Negative for: Dysuria, Hematuria, Vaginal Discharge, Vaginal Bleeding Musculoskeletal: Positive for: Back Pain (right sided), Other (right breast pain) Physical Exam - Physical Exam Appears: Non-toxic, No Acute Distress, Other (bizarre affect) Skin: Warm, Dry Head: Atraumatic Eye(s): bilateral: Normal Inspection Oral Mucosa: Moist Neck: Supple Chest: Symmetrical, No Deformity, No Tenderness, Other (Breast: no masses or erythema) Cardiovascular: Rhythm Regular, No Murmur Respiratory: Normal Breath Sounds, No Rales, No Rhonchi, No Wheezing Gastrointestinal/Abdominal: Soft, Tenderness (mild suprapubic tenderness), Other (negative mcburney's or oviedo's) Back: No CVA Tenderness Extremity: Bilateral: Atraumatic, Normal ROM Neurological/Psych: Oriented x3, Normal Speech ED Course And Treatment - Laboratory Results Result Diagrams: 08/12/18 13:10 08/12/18 13:10 O2 Sat by Pulse Oximetry: 99 (RA) Pulse Ox Interpretation: Normal Progress Note: Bloodwork and urine ordered. Gave patient IV fluids and a low dose of morphine. Previous visit showed elevated BUN creatinine. Disposition Counseled Patient/Family Regarding: Diagnosis, Need For Followup, Rx Given - Disposition Referrals: [facility] [Outside] Disposition: HOME/ ROUTINE Disposition Time: 15:25 Condition: STABLE Additional Instructions: FOLLOW UP WITH THE MEDICAL CLINIC IN 1-2 DAYS DRINK PLENTY OF WATER USE MEDICATIONS DIRECTED RETURN TO EMERGENCY ROOM IF YOUR SYMPTOMS BECOME WORSE SEGUIR CON LA CLNICA MDICA EN 1-2 RUIZ BEBER ABUNDANTE AGUA UTILICE MEDICAMENTOS SUZANNA SE DIRIGE VUELVA A LA YEVGENIY DE EMERGENCIA SI ABBY SNTOMAS SE HACEN PEOR Prescriptions: Nitrofurantoin Macrocrystals [Macrobid] 1 cap PO BID #14 cap Phenazopyridine [Pyridium] 100 mg PO TID #9 tab Instructions: Urinary Tract Infection, Adult (DC) Forms: [employer] (Faroese) Print Language: JAPANESE - Clinical Impression Clinical Impression: UTI (urinary tract infection) - Scribe Statement The provider has reviewed the documentation as recorded by the Dariusibrachel Fish Provider Attestation: All medical record entries made by the Scribe were at my direction and personally dictated by me. I have reviewed the chart and agree that the record accurately reflects my personal performance of the history, physical exam, medical decision making, and the department course for this patient. I have also personally directed, reviewed, and agree with the discharge instructions and disposition.
[2018-08-12 13:22] LABS: BASO # 0.1 K/uL (0.0-0.2); EOS # 0.2 K/uL (0.0-0.7); HEMOGLOBIN 9.8 g/dL (11.0-16.0); LYMPH # 1.1 K/uL (1.0-4.3); LYMPH % 21.3 % (20.0-40.0); MEAN CELL VOLUME 89.1 fL (81.0-99.0); MEAN CORPUSCULAR HEMOGLOBIN 31.4 pg (27.0-31.0); MEAN CORPUSCULAR HGB CONC 35.2 g/dL (33.0-37.0); MEAN PLATELET VOLUME 7.4 fL (7.2-11.7); MONO # 0.4 K/uL (0.0-0.8); NEUT # 3.3 K/uL (1.8-7.0); NEUT % 65.7 % (50.0-75.0); NRBC % 0.1 % (0.0-2.0); RBC 3.12 Mil/uL (3.80-5.20); RED CELL DISTRIBUTION WIDTH 12.7 % (11.5-14.5); WHITE BLOOD COUNT 5.1 K/uL (4.8-10.8)
[2018-08-12 13:35] LABS: SQUAMOUS EPITHIAL < 1 /hpf (0-5); URINE BILIRUBIN NEGATIVE (NEGATIVE); URINE BLOOD 1+ (NEGATIVE); URINE CLARITY Clear (Clear); URINE COLOR Amber (YELLOW); URINE GLUCOSE (UA) NORMAL (Normal); URINE PROTEIN 2+ mg/dL (NEGATIVE)
[2018-08-12 13:36] LABS: URINE LEUKOCYTE ESTERASE 1+ Leu/uL (Negative)
[2018-08-12 13:46] LABS: ALBUMIN 4.4 g/dL (3.5-5.0); CALCIUM 9.4 mg/dl (8.6-10.4)
[2018-08-12] MEDS ORDERED: cefTRIAXone IV 1 gm in Dextros 50 ML IV ONE (14:23)
[2018-08-12 14:54] VITALS: BP 183/77; PULSE 71; RESP 19; TEMP 98
[2018-08-12 15:25] VITALS: O2SAT 99
== END 2018-08-12 15:41 | disposition home or self-care (01) ==
LOC: C.ER 11:02
DX: N39.0 Urinary tract infection, site not specified (principal)
CPT/HCPCS: 80053; 81001; 83690; 85025; 87086; 96361; 96374; 96375; 99285; J0696; J2270; J7030

== ENCOUNTER 2018-08-13 19:05 | Emergency (ER) | payer MEDICAID | END 2018-08-13 22:02 | disposition home or self-care (01) | LOC: C.ER 19:05 ==

== ENCOUNTER 2018-08-18 17:28 | Inpatient (IN) | payer MEDICAID, SELFPAY ==
[2018-08-18 17:28] VITALS: BMI 29.2
[2018-08-18 19:19] LABS: BASO % 0.8 % (0.0-2.0); EOS # 0.2 K/uL (0.0-0.7); HEMOGLOBIN 9.4 g/dL (11.0-16.0); LYMPH # 0.9 K/uL (1.0-4.3); MEAN CELL VOLUME 86.8 fL (81.0-99.0); MEAN CORPUSCULAR HEMOGLOBIN 30.9 pg (27.0-31.0); MEAN CORPUSCULAR HGB CONC 35.6 g/dL (33.0-37.0); MEAN PLATELET VOLUME 6.3 fL (7.2-11.7); MONO # 0.3 K/uL (0.0-0.8); NEUT # 2.8 K/uL (1.8-7.0); NEUT % 66.2 % (50.0-75.0); NRBC % 0.2 % (0.0-2.0); RBC 3.05 Mil/uL (3.80-5.20); RED CELL DISTRIBUTION WIDTH 12.6 % (11.5-14.5); WHITE BLOOD COUNT 4.2 K/uL (4.8-10.8)
[2018-08-18 19:26] LABS: INR 1.2; PARTIAL THROMBOPLASTIN TIME 28.3 SECONDS (21-34); PROTHROMBIN TIME 12.9 SECONDS (9.7-12.2)
--- NOTE | 2018-08-18 19:33 | C.PDOC ---
History Of Present Illness 58 year old female with PMHx of CAD with Stents presents to the ED c/o chest pain and back pain for the past few weeks. Patient also c/o dizziness. Patient has a history of schizophrenia. Patient noted to have recent stent. Patient d enies any other complaints. Time Seen by Provider: 08/18/18 18:41 Chief Complaint (Nursing): Back Pain History Per: Patient History/Exam Limitations: no limitations Onset/Duration Of Symptoms: Days Current Symptoms Are (Timing): Still Present Quality Of Discomfort: "Pain" Recent travel outside of the [place]: No Additional History Per: Patient Past Medical History Reviewed: Historical Data, Nursing Documentation, Vital Signs Vital Signs: Last Vital Signs Temp 99 F 08/18/18 17:44 Pulse 88 08/18/18 17:44 Resp 18 08/18/18 17:44 BP 115/69 08/18/18 17:44 Pulse Ox 100 08/18/18 17:44 Primary Care Provider: Isis Roberson - Medical History PMH: Arthritis, Depression, Diabetes, HTN, Hypercholesterolemia, Hyperlipidemia, Chronic Kidney Disease, Schizophrenia Denies: Diverticulitis Surgical History: Coronary Stent (x2), - [facility] Procedures DILATION OF 1 COR ART WITH 2 DRUG-ELUT, PERC APPROACH (06/13/18) FLUOROSCOPY OF MULT COR ART USING L OSM CONTRAST (06/13/18) FLUOROSCOPY OF RIGHT AND LEFT HEART USING L OSM CONTRAST (06/13/18) MEASURE CARDIAC SAMPL & PRESSURE, BILATERAL, PERC (06/13/18) OTHER SKIN & SUBQ I D (07/30/13) Family History: States: Unknown Family Hx - Social History Hx Tobacco Use: No Hx Alcohol Use: No Hx Substance Use: No - Immunization History Hx Tetanus Toxoid Vaccination: Yes Hx Influenza Vaccination: No Hx Pneumococcal Vaccination: No Review Of Systems Constitutional: Negative for: Fever, Chills Cardiovascular: Positive for: Chest Pain. Negative for: Palpitations Respiratory: Negative for: Cough, Shortness of Breath Gastrointestinal: Negative for: Nausea, Vomiting, Abdominal Pain Musculoskeletal: Positive for: Back Pain Skin: Negative for: Rash Neurological: Positive for: Dizziness. Negative for: Weakness, Numbness, Headache Physical Exam - Physical Exam Appears: Non-toxic, No Acute Distress Skin: Normal Color, Warm, Dry Head: Atraumatic, Normacephalic Eye(s): bilateral: Normal Inspection Neck: Normal ROM, Supple Chest: Symmetrical Cardiovascular: Rhythm Regular Respiratory: Normal Breath Sounds, No Rales, No Rhonchi, No Wheezing Gastrointestinal/Abdominal: Soft, No Tenderness, No Guarding, No Rebound Back: No Vertebral Tenderness Extremity: Normal ROM, No Tenderness, No Swelling Neurological/Psych: Oriented x3, Normal Speech, Normal Cognition Gait: Steady ED Course And Treatment - Laboratory Results Result Diagrams: 08/18/18 19:15 08/18/18 19:15 Lab Results: PT 12.9 SECONDS (9.7-12.2) H 08/18/18 19:15 INR 1.2 08/18/18 19:15 APTT 28.3 SECONDS (21-34) 08/18/18 19:15 ECG: Interpreted By Me, Viewed By Me ECG Rhythm: Sinus Rhythm Interpretation Of ECG: non specifc ST/T wave changes in lateral leads Rate From EC (BPM) O2 Sat by Pulse Oximetry: 100 (ON RA) Pulse Ox Interpretation: Normal Medical Decision Making Medical Decision Making: atypical cp/back pain x 2 weeks. Plan: * CXR * EKG * UA * Labs atypical symptosm but noted EKG changes lateral lead. h/o of cad. will obs. Disposition - Disposition Disposition: HOSPITALIZED Disposition Time: 21:00 Condition: STABLE - Clinical Impression Clinical Impression: Chest pain, Back pain - Scribe Statement The provider has reviewed the documentation as recorded by the Scribe Rey Wright All medical record entries made by the Scribe were at my direction and personally dictated by me. I have reviewed the chart and agree that the record accurately reflects my personal performance of the history, physical exam, medical decision making, and the department course for this patient. I have also personally directed, reviewed, and agree with the discharge instructions and disposition. Decision To Admit - Pt Status Changed To: Hospital Disposition Of: Observation - InPatient: Physician Admission Certification:: ekg changes - . Bed Request Type: Telemetry Admitting Physician: Quentin Tong Patient Diagnosis: Chest pain, Back pain
[2018-08-18 19:34] LABS: ALB/GLOB RATIO 1.1 (1.0-2.1); ALBUMIN 4.5 g/dL (3.5-5.0); ALT/SGPT 7 U/L (9-52); AST/SGOT 17 U/L (14-36); BLOOD UREA NITROGEN 31 mg/dL (7-17); CALCIUM 9.4 mg/dl (8.6-10.4); GFR NON-AFRICAN AMERICAN 12; LIPASE 151 U/L (23-300)
[2018-08-18 20:05] LABS: SQUAMOUS EPITHIAL 1 /hpf (0-5); URINE BACTERIA FEW (<OCC); URINE BILIRUBIN NEGATIVE (NEGATIVE); URINE BLOOD NEGATIVE (NEGATIVE); URINE CLARITY Clear (Clear); URINE GLUCOSE (UA) NORMAL (Normal); URINE LEUKOCYTE ESTERASE 2+ Leu/uL (Negative); URINE PROTEIN 2+ mg/dL (NEGATIVE)
[2018-08-18 20:15] LABS: URINE COLOR YELLOW (YELLOW)
--- NOTE | 2018-08-18 20:34 | CP.PCM.HP ---
<Dwayne Denney - Last Filed: 08/18/18 20:57> History of Present Illness - History of Present Illness History of Present Illness: PGY-1 History and Physical [address] Tong Patient is a 58yo F with PMH HFpEF, CAD, CKD, IDDM2, HTN, HLD, schizophrenia, depression presents to ED with a 3 weeks of chest and back pain, nausea, vomiting, and dizziness. Patient states back pain is across her entire back, non-radiating. Patient states she has vomited intermittently non-bloody, non-bilious vomit. Patient states she feels dizzy as well and has felt like she has had to faint, but has not lost consciousness or fallen. Patient states she thinks her symptoms were caused because she has a urinary tract infection, however she denies any burning urination, increased frequency, flank pain, or hematuria. PMD: clinic Pulm: Lisandro Cardio: Evelio Nephro: Sotero PMH: CAD s/p stents, HFpEF, IDDM2, HTN, HLD, CKD, schizophrenia, depression PSH: tubal ligation 25 years ago Meds: risperidone 2mg PO HS, Simvastatin 10mg Po HS, Zoloft 100 mg PO QHS, coreg 3.125mg PO QD, norvasc 5mg PO daily, Novolin 15 U ACB, Depakote 250 mg PO BID, metformin 500mg BID, feosol 325 BID, ASA 81 mg PO Daily, ferrous sulfate 325 mg PO BID, Lasix 40 mg PO daily. Allergies: NKDA FHx: liver CA (mother), back CA (father), breast CA (sister), DM (2 brothers) SHx: denies smoking, alcohol or illicit drug use, patient is unemployed and lives at home with daughter Present on Admission - Present on Admission Any Indicators Present on Admission: No Review of Systems - Constitutional Constitutional: absent: Chills, Fever - EENT Eyes: Blurred Vision. absent: Diplopia Ears: Dizziness Nose/Mouth/Throat: absent: Nasal Congestion, Nasal Discharge - Cardiovascular Cardiovascular: Chest Pain, Lightheadedness. absent: Chest Pain at Rest, Dyspnea, Palpitations - Respiratory Respiratory: absent: Cough, Wheezing - Gastrointestinal Gastrointestinal: Abdominal Pain, Nausea, Vomiting - Genitourinary Genitourinary: absent: Dysuria, Flank Pain, Hematuria, Urinary Frequency - Musculoskeletal Musculoskeletal: Back Pain. absent: Numbness, Tingling - Neurological Neurological: Dizziness. absent: Numbness, Focal Weakness, Sensory Deficit, Syncope, Weakness - Psychiatric Psychiatric: absent: Homicidal Ideation, Suicidal Ideation, Visual Hallucinations - Hematologic/Lymphatic Hematologic: absent: Easy Bleeding, Easy Bruising Past Patient History - Infectious Disease Hx of Infectious Diseases: None - Past Medical History & Family History Past Medical History?: Yes - Past Social History Smoking Status: Never Smoked - CARDIAC Hx Hypercholesterolemia: Yes Hx Hypertension: Yes - PULMONARY Hx Respiratory Disorders: No - NEUROLOGICAL Hx Neurological Disorder: Yes Other/Comment: schizophrenia - HEENT Hx HEENT Problems: No - RENAL Hx Chronic Kidney Disease: Yes - ENDOCRINE/METABOLIC Hx Diabetes Mellitus Type 2: Yes - HEMATOLOGICAL/ONCOLOGICAL Hx Blood Disorders: No - INTEGUMENTARY Hx Dermatological Problems: No - MUSCULOSKELETAL/RHEUMATOLOGICAL Hx Arthritis: Yes - GASTROINTESTINAL Hx Diverticulitis: No - GENITOURINARY/GYNECOLOGICAL Hx Genitourinary Disorders: Yes Hx Urinary Tract Infection: Yes - PSYCHIATRIC Hx Depression: Yes Hx Schizophrenia: Yes Hx Substance Use: No - SURGICAL HISTORY Hx Coronary Stent: Yes (x2) - ANESTHESIA Hx Anesthesia: Yes Hx Anesthesia Reactions: No Hx Malignant Hyperthermia: No Meds Allergies/Adverse Reactions: Allergies Allergy/AdvReac Type Severity Reaction Status Date / Time No Known Allergies Allergy Verified 08/18/18 17:44 Physical Exam - Constitutional Appears: Non-toxic, No Acute Distress - Head Exam Head Exam: ATRAUMATIC, NORMOCEPHALIC - Eye Exam Eye Exam: EOMI, Normal appearance - ENT Exam ENT Exam: Mucous Membranes Moist - Respiratory Exam Respiratory Exam: Clear to Auscultation Bilateral, NORMAL BREATHING PATTERN. absent: Rhonchi, Wheezes - Cardiovascular Exam Cardiovascular Exam: REGULAR RHYTHM, +S1, +S2 - GI/Abdominal Exam GI & Abdominal Exam: Normal Bowel Sounds, Soft. absent: Tenderness - Extremities Exam Extremities exam: Positive for: normal inspection. Negative for: pedal edema, tenderness - Back Exam Back exam: NORMAL INSPECTION - Neurological Exam Neurological exam: Alert, CN II-XII Intact, Oriented x3 - Psychiatric Exam Psychiatric exam: Normal Affect, Normal Mood - Skin Skin Exam: Dry, Intact Results - Vital Signs Recent Vital Signs: Last Vital Signs Temp 99 F 08/18/18 17:44 Pulse 88 08/18/18 17:44 Resp 18 08/18/18 17:44 BP 115/69 08/18/18 17:44 Pulse Ox 100 08/18/18 19:37 - Labs Result Diagrams: 08/18/18 19:15 08/18/18 19:15 Labs: Laboratory Results - last 24 hr 08/18/18 08/18/18 08/18/18 19:15 19:15 19:15 WBC 4.2 L RBC 3.05 L Hgb 9.4 L Hct 26.5 L MCV 86.8 D MCH 30.9 MCHC 35.6 RDW 12.6 Plt Count 162 MPV 6.3 L Neut % (Auto) 66.2 Lymph % (Auto) 22.0 [place] % (Auto) 7.0 Eos % (Auto) 4.0 Baso % (Auto) 0.8 Neut # (Auto) 2.8 Lymph # (Auto) 0.9 L [place] # (Auto) 0.3 Eos # (Auto) 0.2 Baso # (Auto) 0.0 PT 12.9 H INR 1.2 APTT 28.3 Sodium 132 Potassium 4.8 Chloride 94 L Carbon Dioxide 27 Anion Gap 17 BUN 31 H Creatinine 3.8 H Est GFR ( Amer) 15 Est GFR (Non-Af Amer) 12 Random Glucose 131 H Calcium 9.4 Total Bilirubin 0.7 AST 17 ALT 7 L D Alkaline Phosphatase 59 Troponin I < 0.0120 Total Protein 8.5 H Albumin 4.5 Globulin 4.0 H Albumin/Globulin Ratio 1.1 Lipase 151 Urine Color Urine Clarity Urine pH Ur Specific [place] Urine Protein Urine Glucose (UA) Urine Ketones Urine Blood Urine Nitrate Urine Bilirubin Urine Urobilinogen Ur Leukocyte Esterase Urine WBC (Auto) Urine RBC (Auto) Ur Squamous Epith Cells Urine Bacteria 08/18/18 19:37 WBC RBC Hgb Hct MCV MCH MCHC RDW Plt Count MPV Neut % (Auto) Lymph % (Auto) [place] % (Auto) Eos % (Auto) Baso % (Auto) Neut # (Auto) Lymph # (Auto) [place] # (Auto) Eos # (Auto) Baso # (Auto) PT INR APTT Sodium Potassium Chloride Carbon Dioxide Anion Gap BUN Creatinine Est GFR ( Amer) Est GFR (Non-Af Amer) Random Glucose Calcium Total Bilirubin AST ALT Alkaline Phosphatase Troponin I Total Protein Albumin Globulin Albumin/Globulin Ratio Lipase Urine Color Yellow Urine Clarity Clear Urine pH 6.0 Ur Specific [place] 1.010 Urine Protein 2+ H Urine Glucose (UA) Normal Urine Ketones Negative Urine Blood Negative Urine Nitrate Positive H Urine Bilirubin Negative Urine Urobilinogen 4.0 H Ur Leukocyte Esterase 2+ H Urine WBC (Auto) 44 H Urine RBC (Auto) 3 Ur Squamous Epith Cells 1 Urine Bacteria Few H Assessment & Plan - Assessment and Plan (Free Text) Assessment: Pt is a 58yo F with PMH HFpEF, IDDM2, HTN, HLD, schizophrenia, depression who presents to ED complaining of 3 weeks of chest pain, back pain, nausea, vomiting, and dizziness. EKG normal sinus and initial troponins WNL. Plan: Chest pain R/o ACS -CXR - f/u read -EKG NS, no ST or T wave changes -Initial ROMIs WNL, f/u Q6h ROMIs/EKGs -Lipid panel - f/u -TSH/T4 - f/u -Cardiology consuted, Dr. Rebolledo CAD s/p stents -Con't ASA, plavix HTN -Home Norvasc, Coreg CKD stage 4 -BUN/Cr is 3.8 -Nephro consulted, Dr. Borden -Home Lasix Held Hx of IDDM2 -Hgb A1C 6.4 06/2018 -Hold home metformin -ISS medium -Accucheck ACHS -Hypoglycemia protocol Hx of schizophrenia, depression -Risperdal 2 mg PO QHS, Sertraline 100 mg PO QHS, Depakote 250 mg PO BID Hx of iron deficiency anemia -Ferrous sulfate 325 mg PO BID PPx DVT: Heparin 5000 U SC Q12 Assessment and plan d/w Dr. Alycia Denney, PGY-1 <Quentin Tong - Last Filed: 08/19/18 06:28> Results - Vital Signs Recent Vital Signs: Last Vital Signs Temp 98.7 F 08/18/18 23:19 Pulse 81 08/18/18 23:19 Resp 20 08/18/18 23:19 BP 119/71 08/18/18 23:19 Pulse Ox 98 08/18/18 23:19 - Labs Result Diagrams: 08/19/18 02:19 08/19/18 02:19 Labs: Laboratory Results - last 24 hr 08/18/18 08/18/18 08/18/18 19:15 19:15 19:15 WBC 4.2 L RBC 3.05 L Hgb 9.4 L Hct 26.5 L MCV 86.8 D MCH 30.9 MCHC 35.6 RDW 12.6 Plt Count 162 MPV 6.3 L Neut % (Auto) 66.2 Lymph % (Auto) 22.0 [place] % (Auto) 7.0 Eos % (Auto) 4.0 Baso % (Auto) 0.8 Neut # (Auto) 2.8 Lymph # (Auto) 0.9 L [place] # (Auto) 0.3 Eos # (Auto) 0.2 Baso # (Auto) 0.0 PT 12.9 H INR 1.2 APTT 28.3 Sodium 132 Potassium 4.8 Chloride 94 L Carbon Dioxide 27 Anion Gap 17 BUN 31 H Creatinine 3.8 H Est GFR ( Amer) 15 Est GFR (Non-Af Amer) 12 POC Glucose (mg/dL) Random Glucose 131 H Calcium 9.4 Phosphorus Magnesium Total Bilirubin 0.7 AST 17 ALT 7 L D Alkaline Phosphatase 59 Total Creatine Kinase CK-MB (Mass) Troponin I < 0.0120 Total Protein 8.5 H Albumin 4.5 Globulin 4.0 H Albumin/Globulin Ratio 1.1 Triglycerides Cholesterol LDL Cholesterol Direct HDL Cholesterol Lipase 151 TSH 3rd Generation Urine Color Urine Clarity Urine pH Ur Specific [place] Urine Protein Urine Glucose (UA) Urine Ketones Urine Blood Urine Nitrate Urine Bilirubin Urine Urobilinogen Ur Leukocyte Esterase Urine WBC (Auto) Urine RBC (Auto) Ur Squamous Epith Cells Urine Bacteria 08/18/18 08/18/18 08/19/18 19:37 21:23 02:19 WBC 3.5 L RBC 2.72 L Hgb 8.4 L Hct 24.2 L MCV 88.8 D MCH 30.7 MCHC 34.6 RDW 12.7 Plt Count 155 MPV 6.6 L Neut % (Auto) 60.0 Lymph % (Auto) 26.8 [place] % (Auto) 8.5 Eos % (Auto) 4.1 H Baso % (Auto) 0.6 Neut # (Auto) 2.1 Lymph # (Auto) 0.9 L [place] # (Auto) 0.3 Eos # (Auto) 0.1 Baso # (Auto) 0.0 PT INR APTT Sodium Potassium Chloride Carbon Dioxide Anion Gap BUN Creatinine Est GFR ( Amer) Est GFR (Non-Af Amer) POC Glucose (mg/dL) 157 H Random Glucose Calcium Phosphorus Magnesium Total Bilirubin AST ALT Alkaline Phosphatase Total Creatine Kinase CK-MB (Mass) Troponin I Total Protein Albumin Globulin Albumin/Globulin Ratio Triglycerides Cholesterol LDL Cholesterol Direct HDL Cholesterol Lipase TSH 3rd Generation Urine Color Yellow Urine Clarity Clear Urine pH 6.0 Ur Specific [place] 1.010 Urine Protein 2+ H Urine Glucose (UA) Normal Urine Ketones Negative Urine Blood Negative Urine Nitrate Positive H Urine Bilirubin Negative Urine Urobilinogen 4.0 H Ur Leukocyte Esterase 2+ H Urine WBC (Auto) 44 H Urine RBC (Auto) 3 Ur Squamous Epith Cells 1 Urine Bacteria Few H 08/19/18 02:19 WBC RBC Hgb Hct MCV MCH MCHC RDW Plt Count MPV Neut % (Auto) Lymph % (Auto) [place] % (Auto) Eos % (Auto) Baso % (Auto) Neut # (Auto) Lymph # (Auto) [place] # (Auto) Eos # (Auto) Baso # (Auto) PT INR APTT Sodium 132 Potassium 4.4 Chloride 95 L Carbon Dioxide 24 Anion Gap 17 BUN 31 H Creatinine 3.5 H Est GFR ( Amer) 16 Est GFR (Non-Af Amer) 13 POC Glucose (mg/dL) Random Glucose 125 H Calcium 8.7 Phosphorus 4.0 Magnesium 2.2 Total Bilirubin 0.5 AST 16 ALT 9 D Alkaline Phosphatase 56 Total Creatine Kinase < 20 L CK-MB (Mass) 0.25 Troponin I < 0.0120 Total Protein 7.6 Albumin 4.1 Globulin 3.5 Albumin/Globulin Ratio 1.2 Triglycerides 268 H D Cholesterol 243 H LDL Cholesterol Direct 126 HDL Cholesterol 38 Lipase TSH 3rd Generation 166.00 H Urine Color Urine Clarity Urine pH Ur Specific [place] Urine Protein Urine Glucose (UA) Urine Ketones Urine Blood Urine Nitrate Urine Bilirubin Urine Urobilinogen Ur Leukocyte Esterase Urine WBC (Auto) Urine RBC (Auto) Ur Squamous Epith Cells Urine Bacteria Assessment & Plan - Date & Time Date: 08/19/18 (I have seen and examined the patient. I agree with the findings and plan of care as documented by Dr. Denney. Patient with chest pain. History of CAD. ROMIx3 with EKG. Consult to Cardio. CKD. Consult to nephro. Monitor for acute changes.) Time: 06:27 Attending/Attestation - Attestation I have personally seen and examined this patient.: Yes I have fully participated in the care of the patient.: Yes I have reviewed all pertinent clinical information: Yes
[2018-08-18 21:11] VITALS: RESP 20
[2018-08-18] MEDS: (Novolin R) Insulin Human Regular 100 units/ml vial SC SCH (22:21)
[2018-08-19 02:24] LABS: BASO % 0.6 % (0.0-2.0); EOS # 0.1 K/uL (0.0-0.7); EOS % 4.1 % (0.0-4.0); HEMOGLOBIN 8.4 g/dL (11.0-16.0); LYMPH # 0.9 K/uL (1.0-4.3); LYMPH % 26.8 % (20.0-40.0); MEAN CELL VOLUME 88.8 fL (81.0-99.0); MEAN CORPUSCULAR HEMOGLOBIN 30.7 pg (27.0-31.0); MEAN CORPUSCULAR HGB CONC 34.6 g/dL (33.0-37.0); MEAN PLATELET VOLUME 6.6 fL (7.2-11.7); MONO # 0.3 K/uL (0.0-0.8); MONO % 8.5 % (0.0-10.0); NEUT # 2.1 K/uL (1.8-7.0); RBC 2.72 Mil/uL (3.80-5.20); RED CELL DISTRIBUTION WIDTH 12.7 % (11.5-14.5); WHITE BLOOD COUNT 3.5 K/uL (4.8-10.8)
[2018-08-19 02:41] LABS: ALB/GLOB RATIO 1.2 (1.0-2.1); ALBUMIN 4.1 g/dL (3.5-5.0); ALT/SGPT 9 U/L (9-52); AST/SGOT 16 U/L (14-36); BLOOD UREA NITROGEN 31 mg/dL (7-17); CALCIUM 8.7 mg/dl (8.6-10.4); GFR NON-AFRICAN AMERICAN 13; HDL CHOLESTEROL 38 mg/dL (30-70)
[2018-08-19 02:50] LABS: LDL CHOLESTEROL 126 mg/dL (0-129)
[2018-08-19 02:51] LABS: CK-MB 0.25 ng/mL (0.0-3.38)
[2018-08-19] MEDS: (Novolin R) Insulin Human Regular 100 units/ml vial SC SCH ×4 (08:41→21:40)
[2018-08-19 10:02] LABS: CK-MB 0.27 ng/mL (0.0-3.38)
[2018-08-19] MEDS: Divalproex 500 mg DR Tab PO SCH ×2 (10:13→18:43)
--- NOTE | 2018-08-19 13:54 | CP.PCM.PN ---
<Sheri Rodgers - Last Filed: 08/19/18 15:09> Subjective - Date & Time of Evaluation Date of Evaluation: 08/19/18 Time of Evaluation: 13:54 - Subjective Subjective: Progress note for Dr. Sosa Patient was seen and examined at bedside in no acute distress. Patient reports that she has been feeling shaking, dizzy with changes in position, and decreased appetite for 3 weeks. She also still has the right sided chest/breast pain that radiates to her back but states its better than when she came to the hospital. She denies palpitations, dyspnea, cough, nausea, vomiting, fevers, headaches, vision changes, dysphagia, odynophagia, change in voice, skin changes/rashes, abdominal pain, diarrhea, constipation, dysuria, hematuria, leg pain, and leg swelling. Objective - Vital Signs/Intake and Output Vital Signs (last 24 hours): Temp Pulse Resp BP Pulse Ox 98.0 F 75 20 158/79 H 96 08/19/18 07:00 08/19/18 11:58 08/19/18 07:00 08/19/18 07:00 08/19/18 07:00 - Medications Medications: Current Medications Acetaminophen (Tylenol 325mg Tab) 650 mg PO Q6 PRN PRN Reason: Pain, Mild (1-3) Amlodipine Besylate (Norvasc) 10 mg PO DAILY [facility] Last Admin: 08/19/18 10:14 Dose: 10 mg Aspirin (Aspirin Chewable) 81 mg PO DAILY [facility] Last Admin: 08/19/18 10:13 Dose: 81 mg Carvedilol (Coreg) 3.125 mg PO BID [facility] Last Admin: 08/19/18 10:14 Dose: 3.125 mg Clopidogrel Bisulfate (Plavix) 75 mg PO DAILY [facility] Last Admin: 08/19/18 10:17 Dose: 75 mg Divalproex Sodium (Depakote Dr) 500 mg PO BID [facility] Last Admin: 08/19/18 10:13 Dose: 500 mg Ferrous Sulfate (Feosol) 325 mg PO BID [facility] Last Admin: 08/19/18 10:14 Dose: 325 mg Heparin Sodium (Porcine) (Heparin) 5,000 units SC Q12 [facility] Last Admin: 08/19/18 10:14 Dose: 5,000 units Insulin Human Regular (Novolin R) 0 unit SC ACHS [facility]; Protocol Last Admin: 08/19/18 13:17 Dose: 3 units Levothyroxine Sodium (Synthroid) 200 mcg IVP ONCE ONE Stop: 08/20/18 15:01 Levothyroxine Sodium (Synthroid) 100 mcg IVP DAILY [facility] Losartan Potassium (Cozaar) 100 mg PO DAILY [facility] Last Admin: 08/19/18 10:14 Dose: 100 mg Risperidone (Risperdal Tab) 2 mg PO HS [facility] Last Admin: 08/18/18 21:34 Dose: 2 mg Rosuvastatin Calcium (Crestor) 5 mg PO HS [facility] Last Admin: 08/18/18 21:12 Dose: 5 mg Sertraline HCl (Zoloft) 100 mg PO HS [facility] Last Admin: 08/18/18 21:18 Dose: 100 mg - Labs Labs: 08/19/18 02:19 08/19/18 02:19 PT 12.9 SECONDS (9.7-12.2) H 08/18/18 19:15 INR 1.2 08/18/18 19:15 APTT 28.3 SECONDS (21-34) 08/18/18 19:15 - Constitutional Appears: No Acute Distress - Head Exam Head Exam: ATRAUMATIC, NORMAL INSPECTION - Eye Exam Eye Exam: EOMI, Normal appearance - ENT Exam ENT Exam: Mucous Membranes Moist - Neck Exam Neck Exam: Full ROM, Normal Inspection. absent: Lymphadenopathy, Tenderness, Thyromegaly - Respiratory Exam Respiratory Exam: Clear to Ausculation Bilateral, NORMAL BREATHING PATTERN. absent: Rales, Rhonchi, Wheezes, Respiratory Distress - Cardiovascular Exam Cardiovascular Exam: REGULAR RHYTHM, +S1, +S2 - GI/Abdominal Exam GI & Abdominal Exam: Soft, Normal Bowel Sounds. absent: Distended, Firm, Tenderness - Extremities Exam Extremities Exam: Normal Inspection. absent: Calf Tenderness, Pedal Edema, Tenderness - Neurological Exam Neurological Exam: Alert, Awake, Oriented x3 - Psychiatric Exam Psychiatric exam: Normal Affect, Normal Mood - Skin Skin Exam: Dry, Intact, Normal Color, Warm. absent: Rash Assessment and Plan - Assessment and Plan (Free Text) Plan: Pt is a 58 year old Female with a past medical history of HFpEF, IDDM2, HTN, HLD, schizophrenia, depression who presents to ED complaining of 3 weeks of chest pain, back pain, nausea, vomiting, and dizziness. Hypothyroidism - At admission: TSH: 166; Free T4: 0.29, Free T3: 2.52 - TSH in 03/2018 17.8- patient has not been prescribed thyroid medication; prior to 03/2018, TSH levels were within normal range (0.85-2.8) - Endocrinology consulted, Dr. Gonzales; help appreciated - Per Dr Gonzales: Gave 1 dose of Levothyroxine 200mcg IV once today and will start Levothyroxine 100mcg IV daily on 08/19/18. - Repeat Thyroid studies: f/u in AM - Thyroid US: f/u Chest pain - CXR: f/u read - EKGx3: NSR, no ST or T wave changes - Trops x3 negative - Lipid panel: TG 268, Chol 243, LDL 126, HDL 38 - At admission: TSH: 166; Free T4: 0.29, Free T3: 2.52 - Echo (04/2018): LVH, 55-60% EF, Mild LVH, norm LV systolic function, mod to severe MR, Mild pulmonary hypertension, mild to moderate AR, Grade I abnormal relaxation pattern, small circumferential pericardial effusion, moderate left pleural effusion. - Cardiology consulted, Dr. Rebolledo * Per executive office manager, patient is stable and cleared for discharge per primary team. CAD s/p stents - Continue home medications: ASA 81mg PO daily, Plavix 75mg PO daily, Crestor 5mg PO HS - Two drug eluding stents placed by Dr. Fraser in 06/2018. HTN - Continue Home medications: Norvasc 10mg PO Daily, Coreg 3.125mg PO BID, Losartan 100mg PO daily CKD stage 4 - BUN/Cr is 3.8 - Textile Dyer consulted, Dr. Bey (patient's parking meter mechanic); help appreciated - Home Lasix Held Hx of IDDM2 - Hgb A1C 6.4 06/2018 - Accucheck ACHS; Hypoglycemia protocol - Hold home metformin - ISS medium Hx of schizophrenia, depression - Risperdal 2 mg PO QHS, Sertraline 100 mg PO QHS, Depakote 250 mg PO BID Hx of iron deficiency anemia - Ferrous sulfate 325 mg PO BID Prophylaxis - DVT: Heparin 5000 U SC Q12 - GI: not indicated at this time Case discussed with Dr. Ian Arboleda, PGY2 <Abril Sosa V - Last Filed: 08/19/18 17:51> Objective - Vital Signs/Intake and Output Vital Signs (last 24 hours): Temp Pulse Resp BP Pulse Ox 98.1 F 72 20 122/69 100 08/19/18 16:40 08/19/18 16:40 08/19/18 16:40 08/19/18 16:40 08/19/18 16:40 Intake and Output: 08/19/18 08/19/18 06:59 18:59 Intake Total 400 Balance 400 - Medications Medications: Current Medications Acetaminophen (Tylenol 325mg Tab) 650 mg PO Q6 PRN PRN Reason: Pain, Mild (1-3) Amlodipine Besylate (Norvasc) 10 mg PO DAILY [facility] Last Admin: 08/19/18 10:14 Dose: 10 mg Aspirin (Aspirin Chewable) 81 mg PO DAILY [facility] Last Admin: 08/19/18 10:13 Dose: 81 mg Carvedilol (Coreg) 3.125 mg PO BID [facility] Last Admin: 08/19/18 10:14 Dose: 3.125 mg Clopidogrel Bisulfate (Plavix) 75 mg PO DAILY [facility] Last Admin: 08/19/18 10:17 Dose: 75 mg Divalproex Sodium (Depakote Dr) 500 mg PO BID [facility] Last Admin: 08/19/18 10:13 Dose: 500 mg Ferrous Sulfate (Feosol) 325 mg PO BID [facility] Last Admin: 08/19/18 10:14 Dose: 325 mg Heparin Sodium (Porcine) (Heparin) 5,000 units SC Q12 [facility] Last Admin: 08/19/18 10:14 Dose: 5,000 units Insulin Human Regular (Novolin R) 0 unit SC [facility]; Protocol Levothyroxine Sodium (Synthroid) 100 mcg IVP DAILY [facility] Losartan Potassium (Cozaar) 100 mg PO DAILY [facility] Last Admin: 08/19/18 10:14 Dose: 100 mg Repaglinide (Prandin) 1 mg PO TIDAC [facility] Risperidone (Risperdal Tab) 2 mg PO HS [facility] Last Admin: 08/18/18 21:34 Dose: 2 mg Rosuvastatin Calcium (Crestor) 5 mg PO HS [facility] Last Admin: 08/18/18 21:12 Dose: 5 mg Sertraline HCl (Zoloft) 100 mg PO HS [facility] Last Admin: 08/18/18 21:18 Dose: 100 mg - Labs Labs: 08/19/18 02:19 08/19/18 02:19 PT 12.9 SECONDS (9.7-12.2) H 08/18/18 19:15 INR 1.2 08/18/18 19:15 APTT 28.3 SECONDS (21-34) 08/18/18 19:15 Attending/Attestation - Attestation I have personally seen and examined this patient.: Yes I have fully participated in the care of the patient.: Yes I have reviewed all pertinent clinical information, including history, physical exam and plan: Yes Notes (Text): Patient seen, examined case discussed with medical collector. Patient seen at bedside this afternoon. Patient reported some dizziness and lightheadedness. Patient reports that she has symptoms consistent with urinary tract infection. Per review of labs noted significant TSH above 166 patient has had a prior TSH of 12 however has not been treated for it. We will check additional thyroid studies consult endocrine. Patient received a dose of Synthroid 200 MCG IV x1. We will do a weaning dose antibiotic to cover for cystitis. Patient's parking meter mechanic Dr. Bey who is been followed patient for cancer prior consult tomorrow. Patient was seen by cardiology, Dr. Ruy ruiz from his standpoint for discharge. Assessment/Plan 1. Symptomatic Hypothyroidism Assessment/Plan * Endocrinology consulted, Dr. Gonzales; help appreciated * At admission: TSH: 166; Free T4: 0.29, Free T3: 2.52 * Patient has not had thyroid medication nor diagnosed with thyroid disease. * Per Dr Gonzales: Gave 1 dose of Levothyroxine 200mcg IV once today and will start Levothyroxine 100mcg IV daily on 08/19/18. * Repeat Thyroid studies: f/u in AM * Thyroid US: f/u 2. Chest pain (resolved) Assessment/Plan * Lipid panel: TG 268, Chol 243, LDL 126, HDL 38 * Cardiology consulted, Dr. Rebolledo process control manager * Per executive office manager, patient is stable and cleared for discharge per primary team. 3. History of CAD s/p stents (LAD) History of mild LV Dysfunction Assessment/Plan * Continue home medications: ASA 81mg PO daily, Plavix 75mg PO daily, Crestor 5mg PO HS * 06/14/18: Diagnostic Cath; Two drug eluding stents placed by Dr. Fraser in 06/16/2018. * She will need to be on dual antiplatelet therapy at least one year * Coreg 3.125mg PO BID * Aspirin 81mg PO daily * ARB held secondary to CKD * Lasix held secondary to CKD 4. History of Hypertension Assessment/Plan * Norvasc 10mg PO Daily * Coreg 3.125mg PO BID * Losartan 100mg PO daily 5. CKD stage 4 Assessment/Plan * Textile Dyer consulted, Dr. Bey (patient's parking meter mechanic); help appreciated * Renal Scan Nuclear Medicine (01/20/15): geographic areas of diminished perfusion/function involving the right kidney corresponding to the findings on recent CT angiogram. Diminished right renal function. (40%) * Bladder us (04/13/18): bilateral diffuse renal increased cortical echogenicity medical renal disease. No hydronephrosis or gross renal mass. Diffuse mild bladder wall thickening. No intraluminal masses. A nonspecific inflammatory or hyperplastic process is a consideration. Mild diffuse bladder infection. Calcfied uterine fibroids 6. Hx of IDDM2 Assessment/Plan * Hgb A1C 6.4 06/2018 * Accucheck ACHS; Hypoglycemia protocol * Hold home metformin * ISS medium * Prandin 1mg PO TIDACC 7. Hx of schizophrenia, depression Assessment/Plan * Risperdal 2 mg PO QHS, Sertraline 100 mg PO QHS, Depakote 250 mg PO BID 8. Hx of iron deficiency anemia Assessment/Plan * Ferrous sulfate 325 mg PO BID 9. Cystitis Assessment/Plan * CT abdomen/pelvis (w/o PO and IV contrast): moderate circumferential mural thickening of the urinary bladder wall * UA abnormal * Urine culture pending * Received Rocephin 1 gram (08/18/18) in ED * Will need renal dose antibiotic therapy 10. Prophylaxis Assessment/Plan * DVT Ppx: Heparin 5000 U SC Q12 * GI: not indicated at this time
--- NOTE | 2018-08-19 14:53 | RAD ---
Date of service: 08/18/2018 HISTORY: Chest pain COMPARISON: Comparison made with chest radiograph dated 06/10/2018 TECHNIQUE: 1 view obtained. FINDINGS: LUNGS: No active pulmonary disease. PLEURA: No significant pleural effusion identified, no pneumothorax apparent. CARDIOVASCULAR: No aortic atherosclerotic calcification present. Normal cardiac size. No pulmonary vascular congestion. OSSEOUS STRUCTURES: There appears to be mild levoscoliosis centered at the mid-lower lumbar region. VISUALIZED UPPER ABDOMEN: Normal. OTHER FINDINGS: None. IMPRESSION: No active disease.
[2018-08-19] MEDS ORDERED: Levothyroxine 200 mcg (0.2 mg) Inj IVP ONE (15:03)
--- NOTE | 2018-08-19 17:12 | US ---
Date of service: 08/19/2018 HISTORY: elevated TSH TECHNIQUE: Sonographic evaluation of the thyroid gland. COMPARISON: No prior study available for comparison FINDINGS: RIGHT LOBE: Measures 4.3 x 1.7 x 1.7 cm. Heterogeneous echotexture and increased flow.. Nodules: None LEFT LOBE: Measures 4.0 x 2.0 x 1.9 cm. Increased echotexture and mild increased flow.. Nodules: None ISTHMUS: Measures 0.5 cm. Slight increased echotexture and flow. Small hypoechoic cystic appearing structure within the isthmus measuring 3 mm x 2 mm x 3 mm. Follow-up thyroid ultrasound in 3 months recommended.. Nodules: None OTHER FINDINGS: None . IMPRESSION: Heterogeneous parenchymal echotexture with increased flow; rule out mild thyroiditis. There is also a tiny hypoechoic cystic appearing structure within the isthmus for which follow-up thyroid ultrasound recommended in 3 months assess stability.
[2018-08-20] MEDS: (Novolin R) Insulin Human Regular 100 units/ml vial SC SCH ×4 (07:54→21:19)
[2018-08-20 08:04] LABS: BASO % 0.8 % (0.0-2.0); EOS # 0.2 K/uL (0.0-0.7); EOS % 4.5 % (0.0-4.0); HEMOGLOBIN 8.9 g/dL (11.0-16.0); LYMPH # 0.9 K/uL (1.0-4.3); LYMPH % 26.2 % (20.0-40.0); MEAN CELL VOLUME 88.6 fL (81.0-99.0); MEAN CORPUSCULAR HEMOGLOBIN 31.7 pg (27.0-31.0); MEAN CORPUSCULAR HGB CONC 35.8 g/dL (33.0-37.0); MONO # 0.2 K/uL (0.0-0.8); MONO % 6.4 % (0.0-10.0); NEUT # 2.2 K/uL (1.8-7.0); NEUT % 62.1 % (50.0-75.0); NRBC % 0.1 % (0.0-2.0); RBC 2.81 Mil/uL (3.80-5.20); RED CELL DISTRIBUTION WIDTH 12.7 % (11.5-14.5); WHITE BLOOD COUNT 3.6 K/uL (4.8-10.8)
--- NOTE | 2018-08-20 08:22 | CP.PCM.CON ---
History of Present Illness - History of Present Illness History of Present Illness: Patient is a 58yo F with PMH HFpEF, CAD, CKD, IDDM2, HTN, HLD, schizophrenia, depression presents to ED with a 3 weeks of chest and back pain, nausea, vomiting, and dizziness. Patient states back pain is across her entire back, non-radiating. Patient states she has vomited intermittently non-bloody, non-bilious vomit. Patient states she feels dizzy as well and has felt like she has had to faint, but has not lost consciousness or fallen. Patient states she thinks her symptoms were caused because she has a urinary tract infection, however she denies any burning urination, increased frequency, flank pain, or hematuria. Currently pateint resting in bed, awakes easily. Offers no new complaints. States appetite good, no n/v at this point. Back pain controlled and wants to go home. Patient does not admit to known history of advanced ckd due to diabetic nephropathy. History of CKD 4 and TRISTON on multiple hospital admissions to [facility]. Elevated creatinine noted and consult requested. PMH: CAD s/p stents, HFpEF, IDDM2, HTN, HLD, CKD, schizophrenia, depression PSH: tubal ligation 25 years ago Meds: risperidone 2mg PO HS, Simvastatin 10mg Po HS, Zoloft 100 mg PO QHS, coreg 3.125mg PO QD, norvasc 5mg PO daily, Novolin 15 U ACB, Depakote 250 mg PO BID, metformin 500mg BID, feosol 325 BID, ASA 81 mg PO Daily, ferrous sulfate 325 mg PO BID, Lasix 40 mg PO daily. Allergies: NKDA FHx: liver CA (mother), back CA (father), breast CA (sister), DM (2 brothers) SHx: denies smoking, alcohol or illicit drug use, patient is unemployed and lives at home with daughter Review of Systems - Constitutional Constitutional: absent: Fatigue, Fever, Headache - EENT Eyes: absent: Blurred Vision, Change in Vision Ears: absent: Decreased Hearing, Ear Pain, Dizziness Nose/Mouth/Throat: absent: Nasal Congestion, Post Nasal Drip, Dry Mouth - Breasts Breasts: absent: Skin Changes, Swelling - Cardiovascular Cardiovascular: absent: Chest Pain, Palpitations, Pedal Edema - Respiratory Respiratory: absent: Cough, Dyspnea, Wheezing - Gastrointestinal Gastrointestinal: absent: Abdominal Pain, Constipation, Diarrhea - Genitourinary Genitourinary: absent: Hematuria, Pyuria, Urinary Urgency - Musculoskeletal Musculoskeletal: Back Pain. absent: Muscle Weakness, Neck Pain - Integumentary Integumentary: absent: Dry Skin, Pruritus, Rash - Neurological Neurological: absent: Dizziness, Numbness, Syncope - Psychiatric Psychiatric: absent: Change in Appetite, Memory Loss - Endocrine Endocrine: absent: Cold Intolorance, Heat Intolorance, Polyphagia - Hematologic/Lymphatic Hematologic: absent: Easy Bleeding, Easy Bruising Past Patient History - Infectious Disease Hx of Infectious Diseases: None - Past Medical History & Family History Past Medical History?: Yes - Past Social History Smoking Status: Never Smoked - CARDIAC Hx Hypercholesterolemia: Yes Hx Hypertension: Yes - PULMONARY Hx Respiratory Disorders: No - NEUROLOGICAL Hx Neurological Disorder: Yes Other/Comment: schizophrenia - HEENT Hx HEENT Problems: No - RENAL Hx Chronic Kidney Disease: Yes - ENDOCRINE/METABOLIC Hx Diabetes Mellitus Type 2: Yes - HEMATOLOGICAL/ONCOLOGICAL Hx Blood Disorders: No - INTEGUMENTARY Hx Dermatological Problems: No - MUSCULOSKELETAL/RHEUMATOLOGICAL Hx Arthritis: Yes - GASTROINTESTINAL Hx Diverticulitis: No - GENITOURINARY/GYNECOLOGICAL Hx Genitourinary Disorders: Yes Hx Urinary Tract Infection: Yes - PSYCHIATRIC Hx Depression: Yes Hx Schizophrenia: Yes Hx Substance Use: No - SURGICAL HISTORY Hx Coronary Stent: Yes (x2) - ANESTHESIA Hx Anesthesia: Yes Hx Anesthesia Reactions: No Hx Malignant Hyperthermia: No Meds Allergies/Adverse Reactions: Allergies Allergy/AdvReac Type Severity Reaction Status Date / Time No Known Allergies Allergy Verified 08/18/18 17:44 - Medications Medications: Current Medications Acetaminophen (Tylenol 325mg Tab) 650 mg PO Q6 PRN PRN Reason: Pain, Mild (1-3) Amlodipine Besylate (Norvasc) 10 mg PO DAILY [facility] Last Admin: 08/19/18 10:14 Dose: 10 mg Ascorbic Acid (Vitamin C 250 Mg Tab) 250 mg PO DAILY [facility] Last Admin: 08/19/18 18:43 Dose: 250 mg Aspirin (Aspirin Chewable) 81 mg PO DAILY [facility] Last Admin: 08/19/18 10:13 Dose: 81 mg Carvedilol (Coreg) 3.125 mg PO BID [facility] Last Admin: 08/19/18 18:43 Dose: 3.125 mg Clopidogrel Bisulfate (Plavix) 75 mg PO DAILY [facility] Last Admin: 08/19/18 10:17 Dose: 75 mg Divalproex Sodium (Depakote Dr) 500 mg PO BID [facility] Last Admin: 08/19/18 18:43 Dose: 500 mg Ferrous Sulfate (Feosol) 325 mg PO BID [facility] Last Admin: 08/19/18 18:44 Dose: 325 mg Heparin Sodium (Porcine) (Heparin) 5,000 units SC Q12 [facility] Last Admin: 08/19/18 22:36 Dose: 5,000 units Insulin Human Regular (Novolin R) 0 unit SC ACHS [facility]; Protocol Last Admin: 08/20/18 07:54 Dose: Not Given Levothyroxine Sodium (Synthroid) 100 mcg IVP DAILY [facility] Repaglinide (Prandin) 1 mg PO TIDAC [facility] Last Admin: 08/19/18 18:43 Dose: 1 mg Risperidone (Risperdal Tab) 2 mg PO [facility] Last Admin: 08/19/18 22:37 Dose: 2 mg Rosuvastatin Calcium (Crestor) 5 mg PO [facility] Last Admin: 08/19/18 22:36 Dose: 5 mg Sertraline HCl (Zoloft) 100 mg PO [facility] Last Admin: 08/19/18 22:36 Dose: 100 mg Physical Exam - Constitutional Appears: Well, Non-toxic - Head Exam Head Exam: ATRAUMATIC, NORMAL INSPECTION - Eye Exam Eye Exam: EOMI, Normal appearance - ENT Exam ENT Exam: Mucous Membranes Moist, Normal Oropharynx - Neck Exam Neck exam: Negative for: Lymphadenopathy, Thyromegaly - Respiratory Exam Respiratory Exam: Clear to Auscultation Bilateral, NORMAL BREATHING PATTERN. absent: Rales, Rhonchi - Cardiovascular Exam Cardiovascular Exam: +S1, +S2. absent: Systolic Murmur - GI/Abdominal Exam GI & Abdominal Exam: Normal Bowel Sounds, Soft - Extremities Exam Extremities exam: Negative for: joint swelling, pedal edema, tenderness - Neurological Exam Neurological exam: Alert, CN II-XII Intact - Psychiatric Exam Psychiatric exam: Normal Affect, Normal Mood - Skin Skin Exam: Dry, Warm Results - Vital Signs Recent Vital Signs: Last Vital Signs Temp 98.3 F 08/20/18 07:26 Pulse 77 08/20/18 07:26 Resp 20 08/20/18 07:26 BP 150/75 08/20/18 07:26 Pulse Ox 99 05/12/19 07:26 - Labs Result Diagrams: 08/20/18 07:54 08/19/18 02:19 Labs: Laboratory Results - last 24 hr 08/19/18 08/19/18 08/19/18 06:37 09:27 10:45 WBC RBC Hgb Hct MCV MCH MCHC RDW Plt Count MPV Neut % (Auto) Lymph % (Auto) Ponce % (Auto) Eos % (Auto) Baso % (Auto) Neut # (Auto) Lymph # (Auto) Ponce # (Auto) Eos # (Auto) Baso # (Auto) POC Glucose (mg/dL) 150 H Total Creatine Kinase < 20 L CK-MB (Mass) 0.27 Troponin I < 0.0120 Free T4 0.29 L Free T3 pg/mL 08/19/18 08/19/18 08/19/18 12:11 12:31 16:51 WBC RBC Hgb Hct MCV MCH MCHC RDW Plt Count MPV Neut % (Auto) Lymph % (Auto) Ponce % (Auto) Eos % (Auto) Baso % (Auto) Neut # (Auto) Lymph # (Auto) Ponce # (Auto) Eos # (Auto) Baso # (Auto) POC Glucose (mg/dL) 222 H 164 H Total Creatine Kinase CK-MB (Mass) Troponin I Free T4 Free T3 pg/mL 2.52 L 08/19/18 08/20/18 21:19 07:54 WBC 3.6 L RBC 2.81 L Hgb 8.9 L Hct 24.9 L MCV 88.6 MCH 31.7 H MCHC 35.8 RDW 12.7 Plt Count 176 MPV 7.0 L Neut % (Auto) 62.1 Lymph % (Auto) 26.2 Ponce % (Auto) 6.4 Eos % (Auto) 4.5 H Baso % (Auto) 0.8 Neut # (Auto) 2.2 Lymph # (Auto) 0.9 L Ponce # (Auto) 0.2 Eos # (Auto) 0.2 Baso # (Auto) 0.0 POC Glucose (mg/dL) 104 Total Creatine Kinase CK-MB (Mass) Troponin I Free T4 Free T3 pg/mL Assessment & Plan (1) Back pain Status: Acute (2) TRISTON (acute kidney injury) Status: Acute (3) Bipolar 1 disorder Status: Acute (4) CKD stage 4 due to type 2 diabetes mellitus Status: Acute (5) Chronic anemia Status: Acute (6) Proteinuria Status: Acute (7) HTN (hypertension) Status: Chronic - Assessment and Plan (Free Text) Assessment: TRISTON on CKD stage 4 Possibility of advancing renal disease Electrolytes acceptable Htn not at goal although acceptable for acute events Evaluate with urine for protein and creatinine, repeat serum chemistry CKD eval with pth, vit d, phos levels Maintain current meds Avoid nephrotoxins Would consider vascular eval for avf if patient agrees
[2018-08-20 08:31] LABS: ALB/GLOB RATIO 1.2 (1.0-2.1); ALBUMIN 4.1 g/dL (3.5-5.0); CALCIUM 9.1 mg/dl (8.6-10.4)
[2018-08-20] MEDS: Divalproex 500 mg DR Tab PO SCH ×2 (09:30→18:08)
--- NOTE | 2018-08-20 09:59 | CP.PCM.PN ---
<Sheri Rodgers - Last Filed: 08/20/18 11:41> Subjective - Date & Time of Evaluation Date of Evaluation: 08/20/18 Time of Evaluation: 09:56 - Subjective Subjective: Progress note for Dr. Sosa Patient was seen and examined at bedside in no acute distress. Patient reports still feeling dizzy and has the same back pain that she came in with (surrounding the shoulder blade), otherwise denies remaining review of systems. She denies chest pain, dyspnea, cough, palpitations, vision changes, n/v, dysphagia, abdominal pain, diarrhea/constipation, dysuria, leg pain and leg swelling. She tolerated her diet well. No acute events overnight. Objective - Vital Signs/Intake and Output Vital Signs (last 24 hours): Temp Pulse Resp BP Pulse Ox 98.3 F 77 20 150/75 99 08/20/18 07:26 08/20/18 07:26 08/20/18 07:26 08/20/18 07:26 08/20/18 07:26 - Medications Medications: Current Medications Acetaminophen (Tylenol 325mg Tab) 650 mg PO Q6 PRN PRN Reason: Pain, Mild (1-3) Amlodipine Besylate (Norvasc) 10 mg PO DAILY [facility] Last Admin: 08/20/18 09:30 Dose: 10 mg Ascorbic Acid (Vitamin C 250 Mg Tab) 250 mg PO DAILY [facility] Last Admin: 08/20/18 09:30 Dose: 250 mg Aspirin (Aspirin Chewable) 81 mg PO DAILY [facility] Last Admin: 08/20/18 09:30 Dose: 81 mg Carvedilol (Coreg) 3.125 mg PO BID [facility] Last Admin: 08/20/18 09:30 Dose: 3.125 mg Clopidogrel Bisulfate (Plavix) 75 mg PO DAILY [facility] Last Admin: 08/20/18 09:30 Dose: 75 mg Divalproex Sodium (Depakote Dr) 500 mg PO BID [facility] Last Admin: 08/20/18 09:30 Dose: 500 mg Ferrous Sulfate (Feosol) 325 mg PO BID [facility] Last Admin: 08/20/18 09:30 Dose: 325 mg Heparin Sodium (Porcine) (Heparin) 5,000 units SC Q12 [facility] Last Admin: 08/20/18 09:29 Dose: 5,000 units Insulin Human Regular (Novolin R) 0 unit SC ACHS [facility]; Protocol Last Admin: 08/20/18 07:54 Dose: Not Given Levothyroxine Sodium (Synthroid) 100 mcg IVP DAILY [facility] Repaglinide (Prandin) 1 mg PO TIDAC [facility] Last Admin: 08/20/18 08:30 Dose: 1 mg Risperidone (Risperdal Tab) 2 mg PO HS [facility] Last Admin: 08/19/18 22:37 Dose: 2 mg Rosuvastatin Calcium (Crestor) 5 mg PO [facility] Last Admin: 08/19/18 22:36 Dose: 5 mg Sertraline HCl (Zoloft) 100 mg PO [facility] Last Admin: 08/19/18 22:36 Dose: 100 mg - Labs Labs: 08/20/18 07:54 08/20/18 07:55 PT 12.9 SECONDS (9.7-12.2) H 08/18/18 19:15 INR 1.2 08/18/18 19:15 APTT 28.3 SECONDS (21-34) 08/18/18 19:15 - Constitutional Appears: Non-toxic, No Acute Distress - Head Exam Head Exam: ATRAUMATIC, NORMAL INSPECTION - Eye Exam Eye Exam: EOMI, Normal appearance - ENT Exam ENT Exam: Mucous Membranes Moist - Respiratory Exam Respiratory Exam: Clear to Ausculation Bilateral, NORMAL BREATHING PATTERN. absent: Rales, Rhonchi, Wheezes, Respiratory Distress - Cardiovascular Exam Cardiovascular Exam: REGULAR RHYTHM, +S1, +S2 - GI/Abdominal Exam GI & Abdominal Exam: Soft, Normal Bowel Sounds. absent: Distended, Firm, Guarding, Tenderness - Extremities Exam Extremities Exam: Normal Inspection. absent: Pedal Edema, Tenderness - Back Exam Additional comments: muscle spasm surrounding right scapula-tenderness w/palpation - Neurological Exam Neurological Exam: Alert, Awake, Oriented x3 Neuro motor strength exam: Left Lower Extremity: 0 - Psychiatric Exam Psychiatric exam: Normal Affect, Normal Mood - Skin Skin Exam: Dry, Normal Color, Warm Assessment and Plan - Assessment and Plan (Free Text) Plan: Pt is a 58 year old Female with a past medical history of HFpEF, IDDM2, HTN, HLD, schizophrenia, depression who presents to ED complaining of 3 weeks of chest pain, back pain, nausea, vomiting, and dizziness. Hypothyroidism - At admission: TSH: 166(H); Free T4: 0.29(L), Free T3: 2.52(L) - Repeat Thyroid studies post 1st dose of levothyroxine 200mcg IV on 08/19: TSH 129 (H), Free T4 0.64(L), T4 3.47(L), Free T3 2.90(wnl) - TSH in 03/2018 17.8- patient has not been prescribed thyroid medication; prior to 03/2018, TSH levels were within normal range (0.85-2.8) - Thyroid US: Heterogeneous parenchymal echotexture with increased flow; rule out mild thyroiditis. There is also a tiny hypoechoic cystic appearing structure within the isthmus (measuring 3 mm x 2 mm x 3 mm) for which follow-up thyroid ultrasound recommended in 3 months assess stability. - Endocrinology consulted, Dr. Gonzales; help appreciated * Per Dr Gonzales: Gave 1 dose of Levothyroxine 200mcg IV once today and will start Levothyroxine 100mcg IV daily on 08/19/18. - Continue Levothyroxine 100mcg IV daily per Dr. Gonzales's recommendation. Muscle Spasm - Patient came in w/right sided chest/breast pain and right back pain- the pain is reproducible when palpating the right scapula and surrounding areas. Muscle spasms noted. Patient is not in acute distress. - CXR: no active disease - EKGx3: NSR, no ST or T wave changes - Trops x3 negative - Lipid panel: TG 268, Chol 243, LDL 126, HDL 38 - At admission: TSH: 166; Free T4: 0.29, Free T3: 2.52 - Echo (04/2018): LVH, 55-60% EF, Mild LVH, norm LV systolic function, mod to severe MR, Mild pulmonary hypertension, mild to moderate AR, Grade I abnormal relaxation pattern, small circumferential pericardial effusion, moderate left pleural effusion. - Cardiology consulted, Dr. Rebolledo * Per clay dry press mixer operator, patient is stable and cleared for discharge per primary team. CAD s/p stents - Continue home medications: ASA 81mg PO daily, Plavix 75mg PO daily, Crestor 5mg PO HS - Two drug eluding stents placed by Dr. Fraser in 06/2018. HTN - Continue Home medications: Norvasc 10mg PO Daily, Coreg 3.125mg PO BID, Losartan 100mg PO daily TRISTON on CKD stage 4 - BUN/Cr is 3.8 at admission, repeat BUN/Cr 31/3.5 - Home Lasix Held and avoid nephrotoxins - Boiler Operators Supervisor consulted, Dr. Bey (patient's commodities clerk); help appreciated * possibly advancing renal disease * Evaluate urine protein, urine Cr, PTH, Vit D, Phos * Consider vascular eval for AVF Hx of IDDM2 - Hgb A1C 6.4 06/2018 - Accucheck ACHS; Hypoglycemia protocol - Hold home metformin - ISS medium Hx of schizophrenia, depression - Risperdal 2 mg PO QHS, Sertraline 100 mg PO QHS, Depakote 250 mg PO BID Hx of iron deficiency anemia - Ferrous sulfate 325 mg PO BID - Iron studies ordered: f/u Prophylaxis - DVT: Heparin 5000 U SC Q12 - GI: not indicated at this time Case discussed with Dr. Ian Arboleda, PGY2 <Abril Sosa V - Last Filed: 08/20/18 17:08> Objective - Vital Signs/Intake and Output Vital Signs (last 24 hours): Temp Pulse Resp BP Pulse Ox 98.3 F 72 20 150/75 99 08/20/18 07:26 08/20/18 15:18 08/20/18 07:26 08/20/18 07:26 08/20/18 07:26 - Medications Medications: Current Medications Acetaminophen (Tylenol 325mg Tab) 650 mg PO Q6 PRN PRN Reason: Pain, Mild (1-3) Last Admin: 08/20/18 12:38 Dose: 650 mg Amlodipine Besylate (Norvasc) 10 mg PO DAILY [facility] Last Admin: 08/20/18 09:30 Dose: 10 mg Ascorbic Acid (Vitamin C 250 Mg Tab) 250 mg PO DAILY [facility] Last Admin: 08/20/18 09:30 Dose: 250 mg Aspirin (Aspirin Chewable) 81 mg PO DAILY [facility] Last Admin: 08/20/18 09:30 Dose: 81 mg Carvedilol (Coreg) 3.125 mg PO BID [facility] Last Admin: 08/20/18 09:30 Dose: 3.125 mg Clopidogrel Bisulfate (Plavix) 75 mg PO DAILY [facility] Last Admin: 08/20/18 09:30 Dose: 75 mg Divalproex Sodium (Depakote Dr) 500 mg PO BID [facility] Last Admin: 05/12/19 09:30 Dose: 500 mg Ferrous Sulfate (Feosol) 325 mg PO BID [facility] Last Admin: 08/20/18 09:30 Dose: 325 mg Heparin Sodium (Porcine) (Heparin) 5,000 units SC Q12 [facility] Last Admin: 08/20/18 09:29 Dose: 5,000 units Insulin Human Regular (Novolin R) 0 unit SC ACHS [facility]; Protocol Last Admin: 08/20/18 12:17 Dose: Not Given Levothyroxine Sodium (Synthroid) 100 mcg IVP DAILY [facility] Last Admin: 08/20/18 10:03 Dose: 100 mcg Repaglinide (Prandin) 1 mg PO TIDAC [facility] Last Admin: 08/20/18 12:38 Dose: 1 mg Risperidone (Risperdal Tab) 2 mg PO HS [facility] Last Admin: 08/19/18 22:37 Dose: 2 mg Rosuvastatin Calcium (Crestor) 5 mg PO [facility] Last Admin: 08/19/18 22:36 Dose: 5 mg Sertraline HCl (Zoloft) 100 mg PO [facility] Last Admin: 08/19/18 22:36 Dose: 100 mg - Labs Labs: 08/20/18 07:54 08/20/18 07:55 PT 12.9 SECONDS (9.7-12.2) H 08/18/18 19:15 INR 1.2 08/18/18 19:15 APTT 28.3 SECONDS (21-34) 08/18/18 19:15 Attending/Attestation - Attestation I have personally seen and examined this patient.: Yes I have fully participated in the care of the patient.: Yes I have reviewed all pertinent clinical information, including history, physical exam and plan: Yes Notes (Text): Patient seen, examined case discussed with clinical specialist medical device. Patient seen at bedside this morning. Patient reports she feeling better. Thyroid studies improving. Endocrinology consult obtained. Patient will need to revisit discussion about vascular access for future dialysis; I do not believe patient understands that her kidney disease will likely require dialysis in the future. Per review of labs noted significant TSH above 166 yesterday; patient has had a TSH of 129. Patient to benefit from Synthroid 100mcg IV daily. urine culture 08/18/18 pending. Assessment/Plan 1. Symptomatic Hypothyroidism Assessment/Plan * Endocrinology consulted, Dr. Gonzales; help appreciated * At admission: TSH: 166; Free T4: 0.29, Free T3: 2.52 * Patient has not had thyroid medication nor diagnosed with thyroid disease. * Per Dr Gonzales: Gave 1 dose of Levothyroxine 200mcg IV once 08/19/18 and c/w start Levothyroxine 100mcg IV daily on 08/19/18. * Thyroid US official report available in EMR 2. Chest pain (resolved) Assessment/Plan * Lipid panel: TG 268, Chol 243, LDL 126, HDL 38 * Cardiology consulted, Dr. Rebolledo manager configuration * Per clay dry press mixer operator, patient is stable and cleared for discharge per primary team. 3. History of CAD s/p stents (LAD) History of mild LV Dysfunction Assessment/Plan * Continue home medications: ASA 81mg PO daily, Plavix 75mg PO daily, Crestor 5mg PO HS * 06/14/18: Diagnostic Cath; Two drug eluding stents placed by Dr. Fraser in 06/16/2018. * She will need to be on dual antiplatelet therapy at least one year * Coreg 3.125mg PO BID * Aspirin 81mg PO daily * ARB held secondary to CKD * Lasix held secondary to CKD 4. History of Hypertension Assessment/Plan * Norvasc 10mg PO Daily * Coreg 3.125mg PO BID * Losartan 100mg PO daily 5. CKD stage 4 Assessment/Plan * Boiler Operators Supervisor consulted, Dr. Bey (patient's commodities clerk); help appreciated * Renal Scan Nuclear Medicine (01/20/15): geographic areas of diminished perfusion/function involving the right kidney corresponding to the findings on recent CT angiogram. Diminished right renal function. (40%) * Bladder us (04/13/18): bilateral diffuse renal increased cortical echogenicity medical renal disease. No hydronephrosis or gross renal mass. Diffuse mild bladder wall thickening. No intraluminal masses. A nonspecific inflammatory or hyperplastic process is a consideration. Mild diffuse bladder infection. Calcfied uterine fibroids * patient will likely need dialysis in future; patient will need further education regarding dialysis 6. Hx of IDDM2 Assessment/Plan * Hgb A1C 6.4 06/2018 * Accucheck ACHS; Hypoglycemia protocol * Hold home metformin * ISS medium * Prandin 1mg PO TIDACC 7. Hx of schizophrenia, depression Assessment/Plan * Risperdal 2 mg PO QHS, Sertraline 100 mg PO QHS, Depakote 250 mg PO BID 8. Hx of iron deficiency anemia Assessment/Plan * Ferrous sulfate 325 mg PO BID * Ferritin stable; iron normal. 9. Cystitis Assessment/Plan * CT abdomen/pelvis (w/o PO and IV contrast): moderate circumferential mural thickening of the urinary bladder wall * UA abnormal * Urine culture pending * Received Rocephin 1 gram (08/18/18) in ED * Will need renal dose antibiotic therapy if urine culture positive 10. Prophylaxis Assessment/Plan * DVT Ppx: Heparin 5000 U SC Q12 * GI: not indicated at this time Changed to inpatient: patient benefits from IV synthroid therapy for severe hypothyroidism diagnosed this admission; endocrinology on board.
[2018-08-20] MEDS: Levothyroxine 100 mcg (0.1 mg) Inj IVP SCH (10:03)
[2018-08-20 11:23] LABS: IRON 85 ug/dL (37-170)
[2018-08-20 11:37] LABS: % IRON SATURATION 32 (20-55); TOTAL IRON BINDING CAPACITY 280 ug/dL (250-450)
[2018-08-20] MEDS ORDERED: Levothyroxine 100 mcg (0.1 mg) Inj IVP ONE ×2 (15:00)
--- NOTE | 2018-08-20 16:32 | PN ---
DATE: 08/20/2018 ENDO FOLLOWUP NOTE LOCATION: In room 664. SUBJECTIVE: This is a 58-year-old female presenting here with generalized body weakness and progressively worsening dizziness and lightheadedness, and has been evaluated to have marked hypothyroidism and is being followed closely now for metabolic management. LABORATORY DATA: Her latest chemistry showed a BUN of 31, sodium 133, potassium 4.7, chloride 95, CO2 of 25, glucose 122, and creatinine 3.5. Her glucose values are fluctuating, but improved and they have ranged from 104 to 164 and 173 mg/dL. Her repeat thyroid studies showed the T4 of thyroxine level at 3.47 with free T4 of 0.64 and TSH of 129. Her serum cortisol level is 11.3. 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 She also has uncontrolled type 2 diabetes currently with optimal metabolic profile on just low dose oral hypoglycemic drug therapy as given. She also has diabetic microvascular complications of retinopathy, polyneuropathy, and nephropathy with underlying chronic kidney disease. She also has diabetic microvascular complications of coronary artery disease with previous coronary stent placement and peripheral arterial disease and vasculopathy. PLAN OF MANAGEMENT: We will continue the levothyroxine given as 100 mcg IV push once daily as ordered to fully replenish the markedly low peripheral thyroid hormonal stores at this time. 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 We will continue the levothyroxine given as 100 mcg once daily as ordered and obtain serial thyroid studies accordingly. We will continue the Prandin given as 1 mg p.o. t.i.d. before meals to optimize some metabolic control of her diabetic condition otherwise. We will obtain serial chemistries accordingly. We will follow up with you. Kaley Gonzales MD
--- NOTE | 2018-08-20 19:05 | CON ---
DATE: 08/19/2018 ENDOCRINOLOGY CONSULTATION LOCATION: Room 664. HISTORY OF PRESENT ILLNESS: This is a 58-year-old female with a known history of type 2 diabetes and hypertension, presenting here with progressively worsening dizziness and lightheadedness and generalized body weakness and is now being referred for evaluation of abnormal thyroid function studies. PAST MEDICAL HISTORY: As mentioned above. History of type 2 diabetes, on metformin given as 500 mg b.i.d. and also concomitant use of NPH given as 15 units once daily in the morning; history of hypertension and dyslipidemia; history of diabetic retinopathy, polyneuropathy and nephropathy with progressive renal insufficiency and advanced azotemia as noted; history of generalized anxiety and depression, on psychotropic medications with underlying schizophrenia as noted; history of coronary artery disease with previous coronary artery stent placements. FAMILY HISTORY: Positive for diabetes and hypertension and several cancer diagnoses among family members. SOCIAL HISTORY: The patient has a supportive family. Lives with her daughter. No known substance use. REVIEW OF SYSTEMS: Admits to generalized body weakness with progressive bouts of dizziness and lightheadedness over the past three weeks prior to admission but worse on the day of admission. Also admits to bifrontal headaches with visual blurring as noted; moreover admits to increasing hypersomnolence and lethargy, worse in the last week or so prior to admission. No chest pains, but admits to progressive shortness of breath, especially on exertion. Her oral intake has been variable with nausea, dyspepsia and vague upper abdominal pains. Also admits to intermittent bouts of vomiting episodes, again worse in the last two weeks or so prior to admission. Also admits to habitual constipation and lower extremity paresthesias, especially nocturnally. PHYSICAL EXAMINATION: GENERAL: This is an overweight female, in no apparent distress. VITAL SIGNS: Blood pressure of 140/80, pulse of 70 beats per minute and regular, temperature of 98, respirations of 20. Height is 5 feet 1 inch, weight is 155 pounds. HEENT: Head, normocephalic. Eyes, anicteric with pale conjunctivae. Funduscopy not possible at this time. Ears, nose, and throat are otherwise normal. There is also evidence of facial and periorbital edema. NECK: Supple. Thyroid gland shows nodular thyromegaly which is firm and nontender with no overt thyroid bruits nor palpable thyroid nodules. No cervical adenopathy noted. HEART: Adynamic precordium. S1 and S2, slow and regular. LUNGS: Clear to auscultation. ABDOMEN: Soft and flat with positive bowel sounds. EXTREMITIES: No peripheral edema. Pulses are +2 bilaterally. LABORATORY DATA: Hemoglobin is 8.4, hematocrit of 24, WBC is 3.5, MCV is 88, platelets 155. Her chemistries show a BUN of 31, sodium 132, potassium 4.8, chloride 94, CO2 of 27, glucose of 131 and creatinine 3.8. Her glucose levels have raised from 150 to 157 mg/dL. Her TSH is 166 with a free T4 of 0.29 and a free T3 of 2.52. Her triglyceride levels are 268, cholesterol is 243, LDL is 126. 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 PLAN OF MANAGEMENT: We will highly recommend parenteral levothyroxine replacement therapy as giving her oral levothyroxine will not be effective as we expect tremendous edema of the gastric mucosa impeding effective absorption of her oral levothyroxine replacement therapy if given. So we will highly recommend parenteral levothyroxine given initially at 200 mcg dose today, followed tomorrow morning by levothyroxine given as 100 mcg intravenous push daily as ordered. We will obtain serial thyroid studies and obtain a comprehensive thyroid hormonal profile tomorrow morning as ordered. We will add thyroid antibodies with thyroid peroxidase antibody and thyroglobulin antibody which will confirm and/or indicate the presence of underlying thyroid autoimmunity. We will concur with thyroid ultrasound to fully delineate her thyroid lobe dimensions as noted. We will also obtain the hemoglobin A1C to confirm her prior glycemia control and repeat chemistries accordingly. We will add Prandin given as 1 mg p.o. three times daily before meals to start today as ordered. The metformin therapy is not indicated at this time, especially with impaired glomerular filtration rate and worsening chronic kidney disease. We will obtain serial chemistries and supplement accordingly as needed. After three days or so of parenteral intravenous levothyroxine, then we can switch over to oral levothyroxine given as 125 mcg p.o. once daily as indicated. We will follow. Kaley Gonzales MD Psychiatric # [id number]
[2018-08-21 06:33] LABS: BASO % 0.9 % (0.0-2.0); EOS # 0.2 K/uL (0.0-0.7); EOS % 4.8 % (0.0-4.0); HEMOGLOBIN 8.5 g/dL (11.0-16.0); LYMPH # 1.3 K/uL (1.0-4.3); LYMPH % 30.6 % (20.0-40.0); MEAN CELL VOLUME 88.9 fL (81.0-99.0); MEAN CORPUSCULAR HGB CONC 34.9 g/dL (33.0-37.0); MEAN PLATELET VOLUME 6.8 fL (7.2-11.7); MONO # 0.3 K/uL (0.0-0.8); MONO % 7.7 % (0.0-10.0); NEUT # 2.4 K/uL (1.8-7.0); NRBC % 0.1 % (0.0-2.0); RBC 2.75 Mil/uL (3.80-5.20); RED CELL DISTRIBUTION WIDTH 12.8 % (11.5-14.5); WHITE BLOOD COUNT 4.3 K/uL (4.8-10.8)
[2018-08-21 07:02] LABS: ALB/GLOB RATIO 1.2 (1.0-2.1); CALCIUM 8.6 mg/dl (8.6-10.4)
[2018-08-21] MEDS: (Novolin R) Insulin Human Regular 100 units/ml vial SC SCH ×2 (07:55→11:47)
[2018-08-21 08:14] VITALS: BP 138/68; TEMP 98.4; O2SAT 97
--- NOTE | 2018-08-21 08:27 | CP.PCM.PN ---
Objective - Vital Signs/Intake and Output Vital Signs (last 24 hours): Temp Pulse Resp BP Pulse Ox 98.4 F 77 20 138/68 97 08/21/18 08:13 08/21/18 08:13 08/21/18 08:13 08/21/18 08:13 08/21/18 08:13 - Medications Medications: Current Medications Acetaminophen (Tylenol 325mg Tab) 650 mg PO Q6 PRN PRN Reason: Pain, Mild (1-3) Last Admin: 08/20/18 12:38 Dose: 650 mg Amlodipine Besylate (Norvasc) 10 mg PO DAILY [facility] Last Admin: 08/20/18 09:30 Dose: 10 mg Ascorbic Acid (Vitamin C 250 Mg Tab) 250 mg PO DAILY [facility] Last Admin: 08/20/18 09:30 Dose: 250 mg Aspirin (Aspirin Chewable) 81 mg PO DAILY [facility] Last Admin: 08/20/18 09:30 Dose: 81 mg Carvedilol (Coreg) 3.125 mg PO BID [facility] Last Admin: 08/20/18 18:07 Dose: 3.125 mg Clopidogrel Bisulfate (Plavix) 75 mg PO DAILY [facility] Last Admin: 08/20/18 09:30 Dose: 75 mg Divalproex Sodium (Depakote Dr) 500 mg PO BID [facility] Last Admin: 08/20/18 18:08 Dose: 500 mg Ferrous Sulfate (Feosol) 325 mg PO BID [facility] Last Admin: 08/20/18 18:10 Dose: 325 mg Heparin Sodium (Porcine) (Heparin) 5,000 units SC Q12 [facility] Last Admin: 08/20/18 21:19 Dose: 5,000 units Insulin Human Regular (Novolin R) 0 unit SC ACHS [facility]; Protocol Last Admin: 08/21/18 07:55 Dose: Not Given Levothyroxine Sodium (Synthroid) 100 mcg IVP DAILY [facility] Last Admin: 08/20/18 10:03 Dose: 100 mcg Repaglinide (Prandin) 1 mg PO TIDAC [facility] Last Admin: 08/21/18 07:57 Dose: Not Given Risperidone (Risperdal Tab) 2 mg PO HS [facility] Last Admin: 08/20/18 21:19 Dose: 2 mg Rosuvastatin Calcium (Crestor) 5 mg PO HS [facility] Last Admin: 08/20/18 21:18 Dose: 5 mg Sertraline HCl (Zoloft) 100 mg PO HS [facility] Last Admin: 08/20/18 21:19 Dose: 100 mg - Labs Labs: 08/21/18 06:25 08/21/18 06:25 PT 12.9 SECONDS (9.7-12.2) H 08/18/18 19:15 INR 1.2 08/18/18 19:15 APTT 28.3 SECONDS (21-34) 08/18/18 19:15
[2018-08-21] MEDS: Divalproex 500 mg DR Tab PO SCH (09:53)
[2018-08-21] MEDS: Levothyroxine 100 mcg (0.1 mg) Inj IVP SCH (09:54)
--- NOTE | 2018-08-21 11:34 | CP.PCM.PN ---
Subjective - Date & Time of Evaluation Date of Evaluation: 08/21/18 Time of Evaluation: 11:31 - Subjective Subjective: Patient is a 58yo F with PMH HFpEF, CAD, CKD, IDDM2, HTN, HLD, schizophrenia, depression presents to ED with a 3 weeks of chest and back pain, nausea, vomiting, and dizziness. Patient states back pain is across her entire back, non-radiating. Patient states she has vomited intermittently non-bloody, non-bilious vomit. Patient states she feels dizzy as well and has felt like she has had to faint, but has not lost consciousness or fallen. Patient states she thinks her symptoms were caused because she has a urinary tract infection, however she denies any burning urination, increased frequency, flank pain, or hematuria. Currently pateint resting in bed, awakes easily. Offers no new complaints. States appetite good, no n/v at this point. Back pain controlled and wants to go home. Patient does not admit to known history of advanced ckd due to diabetic nephropathy. History of CKD 4 and TRISTON on multiple hospital admissions to [facility]. Elevated creatinine noted and consult requested. PMH: CAD s/p stents, HFpEF, IDDM2, HTN, HLD, CKD, schizophrenia, depression PSH: tubal ligation 25 years ago Meds: risperidone 2mg PO HS, Simvastatin 10mg Po HS, Zoloft 100 mg PO QHS, coreg 3.125mg PO QD, norvasc 5mg PO daily, Novolin 15 U ACB, Depakote 250 mg PO BID, metformin 500mg BID, feosol 325 BID, ASA 81 mg PO Daily, ferrous sulfate 325 mg PO BID, Lasix 40 mg PO daily. Allergies: NKDA FHx: liver CA (mother), back CA (father), breast CA (sister), DM (2 brothers) SHx: denies smoking, alcohol or illicit drug use, patient is unemployed and lives at home with daughter 08/21 Notes reviewed Rx for hypothyroidism noted Patient offers no complaints No pain No sob r cough Chronic pain controlled Does not speak much other than to say she wants to leave 10 point ros negative other than above stated in hpi Objective - Vital Signs/Intake and Output Vital Signs (last 24 hours): Temp Pulse Resp BP Pulse Ox 98.4 F 77 20 138/68 97 08/21/18 08:13 08/21/18 08:13 08/21/18 08:13 08/21/18 08:13 08/21/18 08:13 - Medications Medications: Current Medications Acetaminophen (Tylenol 325mg Tab) 650 mg PO Q6 PRN PRN Reason: Pain, Mild (1-3) Last Admin: 08/20/18 12:38 Dose: 650 mg Amlodipine Besylate (Norvasc) 10 mg PO DAILY [facility] Last Admin: 08/21/18 09:52 Dose: 10 mg Ascorbic Acid (Vitamin C 250 Mg Tab) 250 mg PO DAILY [facility] Last Admin: 08/21/18 09:53 Dose: 250 mg Aspirin (Aspirin Chewable) 81 mg PO DAILY [facility] Last Admin: 08/21/18 09:53 Dose: 81 mg Carvedilol (Coreg) 3.125 mg PO BID [facility] Last Admin: 08/21/18 09:53 Dose: 3.125 mg Clopidogrel Bisulfate (Plavix) 75 mg PO DAILY [facility] Last Admin: 08/21/18 09:53 Dose: 75 mg Divalproex Sodium (Depakote Dr) 500 mg PO BID [facility] Ferrous Sulfate (Feosol) 325 mg PO BID [facility] Last Admin: 08/21/18 09:53 Dose: 325 mg Heparin Sodium (Porcine) (Heparin) 5,000 units SC Q12 [facility] Last Admin: 08/21/18 09:53 Dose: 5,000 units Insulin Human Regular (Novolin R) 0 unit SC ACHS [facility]; Protocol Last Admin: 08/21/18 07:55 Dose: Not Given Levothyroxine Sodium (Synthroid) 100 mcg IVP DAILY [facility] Last Admin: 08/21/18 09:54 Dose: 100 mcg Repaglinide (Prandin) 1 mg PO TIDAC [facility] Last Admin: 08/21/18 07:57 Dose: Not Given Risperidone (Risperdal Tab) 2 mg PO HS [facility] Last Admin: 08/20/18 21:19 Dose: 2 mg Rosuvastatin Calcium (Crestor) 5 mg PO HS [facility] Last Admin: 08/20/18 21:18 Dose: 5 mg Sertraline HCl (Zoloft) 100 mg PO HS [facility] Last Admin: 08/20/18 21:19 Dose: 100 mg - Labs Labs: 08/21/18 06:25 08/21/18 06:25 PT 12.9 SECONDS (9.7-12.2) H 08/18/18 19:15 INR 1.2 08/18/18 19:15 APTT 28.3 SECONDS (21-34) 08/18/18 19:15 - Constitutional Appears: Well, Non-toxic - Head Exam Head Exam: ATRAUMATIC, NORMAL INSPECTION - Eye Exam Eye Exam: EOMI, Normal appearance - ENT Exam ENT Exam: Mucous Membranes Moist, Normal Oropharynx - Neck Exam Neck Exam: absent: Lymphadenopathy, Thyromegaly - Respiratory Exam Respiratory Exam: NORMAL BREATHING PATTERN. absent: Rales, Rhonchi, Wheezes - Cardiovascular Exam Cardiovascular Exam: +S1, +S2. absent: Rubs - GI/Abdominal Exam GI & Abdominal Exam: Soft, Normal Bowel Sounds - Extremities Exam Extremities Exam: absent: Joint Swelling, Pedal Edema - Neurological Exam Neurological Exam: Alert, Awake - Skin Skin Exam: Dry, Intact Assessment and Plan (1) Back pain Status: Acute (2) TRISTON (acute kidney injury) Status: Acute (3) Bipolar 1 disorder Status: Acute (4) CKD stage 4 due to type 2 diabetes mellitus Status: Acute (5) Chronic anemia Status: Acute (6) Proteinuria Status: Acute (7) HTN (hypertension) Status: Chronic - Assessment and Plan (Free Text) Assessment: Stage 4 ckd stable Electrolytes acceptable Bp controlled Continue current care Renal diet KAMRAN when patient allows Endocrine follow up
[2018-08-21 13:14] VITALS: PULSE 73
--- NOTE | 2018-08-21 13:15 | CARD ---
APPROVED REPORT Date of service: 08/19/2018 EKG Measurement Heart [id number] <Conclusion> Normal sinus rhythm Normal ECG
--- NOTE | 2018-08-21 13:15 | CARD ---
APPROVED REPORT Date of service: 08/19/2018 EKG Measurement Heart [id number] [place] [id number] <Conclusion> Normal sinus rhythm Normal ECG
--- NOTE | 2018-08-21 13:15 | CARD ---
APPROVED REPORT Date of service: 08/18/2018 EKG Measurement Heart [id number] [place] [id number] <Conclusion> Normal sinus rhythm Normal ECG
--- NOTE | 2018-08-21 13:49 | CP.PCM.DIS ---
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 Time Spent in preparation of Discharge (in minutes): 35 Diagnosis - Discharge Diagnosis (1) Hypothyroid Status: Acute (2) Acute kidney injury superimposed on CKD Status: Acute (3) Iron (Fe) deficiency anemia Status: Chronic (4) HTN (hypertension) Status: Chronic (5) Hyperlipidemia Status: Chronic (6) Schizophrenia Status: Chronic (7) Presence of stent in coronary artery in patient with coronary artery disease Status: Chronic Hospital Course - Lab Results Lab Results: Micro Results 08/19/18 02:35 Blood Blood Culture - Preliminary NO GROWTH AFTER 48 HOURS 08/19/18 02:35 Blood Blood Culture - Preliminary NO GROWTH AFTER 48 HOURS 08/18/18 22:56 Urine,Clean Catch Urine Culture - Final No Growth (<1,000 CFU/ML) Most Recent Lab Values WBC 4.3 K/uL (4.8-10.8) L 08/21/18 06:25 RBC 2.75 Mil/uL (3.80-5.20) L 08/21/18 06:25 Hgb 8.5 g/dL (11.0-16.0) L 08/21/18 06:25 Hct 24.4 % (34.0-47.0) L 08/21/18 06:25 MCV 88.9 fL (81.0-99.0) 08/21/18 06:25 MCH 31.0 pg (27.0-31.0) 08/21/18 06:25 MCHC 34.9 g/dL (33.0-37.0) 08/21/18 06:25 RDW 12.8 % (11.5-14.5) 08/21/18 06:25 Plt Count 182 K/uL (130-400) 08/21/18 06:25 MPV 6.8 fL (7.2-11.7) L 08/21/18 06:25 Neut % (Auto) 56.0 % (50.0-75.0) 08/21/18 06:25 Lymph % (Auto) 30.6 % (20.0-40.0) 08/21/18 06:25 [place] % (Auto) 7.7 % (0.0-10.0) 08/21/18 06:25 Eos % (Auto) 4.8 % (0.0-4.0) H 08/21/18 06:25 Baso % (Auto) 0.9 % (0.0-2.0) 08/21/18 06:25 Neut # (Auto) 2.4 K/uL (1.8-7.0) 08/21/18 06:25 Lymph # (Auto) 1.3 K/uL (1.0-4.3) 08/21/18 06:25 [place] # (Auto) 0.3 K/uL (0.0-0.8) 08/21/18 06:25 Eos # (Auto) 0.2 K/uL (0.0-0.7) 08/21/18 06:25 Baso # (Auto) 0.0 K/uL (0.0-0.2) 08/21/18 06:25 Retic Count 1.6 % (0.5-1.5) H D 08/20/18 10:53 PT 12.9 SECONDS (9.7-12.2) H 08/18/18 19:15 INR 1.2 08/18/18 19:15 APTT 28.3 SECONDS (21-34) 08/18/18 19:15 Sodium 132 mmol/L (132-148) 08/21/18 06:25 Potassium 5.1 mmol/L (3.6-5.2) 08/21/18 06:25 Chloride 97 mmol/L (98-107) L 08/21/18 06:25 Carbon Dioxide 25 mmol/L (22-30) 08/21/18 06:25 Anion Gap 15 (10-20) 08/21/18 06:25 BUN 35 mg/dL (7-17) H 08/21/18 06:25 Creatinine 3.6 mg/dL (0.7-1.2) H 08/21/18 06:25 Est GFR ( Amer) 16 08/21/18 06:25 Est GFR (Non-Af Amer) 13 08/21/18 06:25 POC Glucose (mg/dL) 70 mg/dL (65-110) 08/21/18 06:36 Random Glucose 61 mg/dL (65-105) L D 08/21/18 06:25 Calcium 8.6 mg/dl (8.6-10.4) 08/21/18 06:25 Phosphorus 4.7 mg/dL (2.5-4.5) H 08/21/18 06:25 Magnesium 2.4 mg/dL (1.6-2.3) H 08/21/18 06:25 Iron 85 ug/dL (37-170) 08/20/18 10:53 TIBC 280 ug/dL (250-450) 08/20/18 10:53 % Saturation 32 (20-55) 08/20/18 10:53 Ferritin 242.0 ng/mL 08/20/18 10:53 Total Bilirubin 0.4 mg/dL (0.2-1.3) 08/21/18 06:25 AST 23 U/L (14-36) 08/21/18 06:25 ALT 8 U/L (9-52) L 08/21/18 06:25 Alkaline Phosphatase 48 U/L (38-126) 08/21/18 06:25 Total Creatine Kinase < 20 U/L (30-135) L 08/19/18 09:27 CK-MB (Mass) 0.27 ng/mL (0.0-3.38) 08/19/18 09:27 Troponin I < 0.0120 ng/mL (0.00-0.120) 08/19/18 09:27 Total Protein 7.2 g/dL (6.3-8.3) 08/21/18 06:25 Albumin 4.0 g/dL (3.5-5.0) 08/21/18 06:25 Globulin 3.3 gm/dL (2.2-3.9) 08/21/18 06:25 Albumin/Globulin Ratio 1.2 (1.0-2.1) 08/21/18 06:25 Triglycerides 268 mg/dL (0-149) H D 08/19/18 02:19 Cholesterol 243 mg/dL (0-199) H 08/19/18 02:19 LDL Cholesterol Direct 126 mg/dL (0-129) 08/19/18 02:19 HDL Cholesterol 38 mg/dL (30-70) 08/19/18 02:19 Lipase 151 U/L (23-300) 08/18/18 19:15 Free T4 0.64 ng/dL (0.78-2.19) L 08/20/18 07:55 Thyroxine (T4) 3.47 ug/dL (5.5-11.0) L 08/20/18 07:55 Free T3 pg/mL 2.90 pg/mL (2.77-5.27) 08/20/18 07:55 TSH 3rd Generation 71.70 mIU/L (0.46-4.68) H 08/21/18 06:25 Cortisol AM Sample 11.3 ug/dL (4.46-22.7) 08/20/18 07:55 Urine Color Yellow (YELLOW) 08/18/18 19:37 Urine Clarity Clear (Clear) 08/18/18 19:37 Urine pH 6.0 (5.0-8.0) 08/18/18 19:37 Ur Specific [place] 1.010 (1.003-1.030) 08/18/18 19:37 Urine Protein 2+ mg/dL (NEGATIVE) H 08/18/18 19:37 Urine Glucose (UA) Normal mg/dL (Normal) 08/18/18 19:37 Urine Ketones Negative mg/dL (NEGATIVE) 08/18/18 19:37 Urine Blood Negative (NEGATIVE) 08/18/18 19:37 Urine Nitrate Positive (NEGATIVE) H 08/18/18 19:37 Urine Bilirubin Negative (NEGATIVE) 08/18/18 19:37 Urine Urobilinogen 4.0 mg/dL (0.2-1.0) H 08/18/18 19:37 Ur Leukocyte Esterase 2+ Juan Jose/uL (Negative) H 08/18/18 19:37 Urine WBC (Auto) 44 /hpf (0-5) H 08/18/18 19:37 Urine RBC (Auto) 3 /hpf (0-3) 08/18/18 19:37 Ur Squamous Epith Cells 1 /hpf (0-5) 08/18/18 19:37 Urine Bacteria Few (<OCC) H 08/18/18 19:37 U Random Total Protein 288.0 mg/dL (0.0-12.0) H 08/20/18 10:34 - Hospital Course Hospital Course: On admission: Patient is a 58 year old F with PMH HFpEF, CAD, CKD, IDDM2, HTN, HLD, schizophrenia, depression presents to ED with a 3 weeks of chest and back pain, nausea, vomiting, and dizziness. Patient states back pain is across her entire back, non-radiating. Patient states that she has vomited intermittently non- bloody, non-bilious vomit. Patient states she feels dizzy as well and has felt she has had to faint, but has not lost consciousness or fallen. Patient states she thinks her symptoms were caused because she has a urinary tract infection, however she denies any burning on urination, increased frequency, flank pain, or hematuria. Hospital course: Home meds were restarted on admission, including DAPT on adimssion due to hx of CAD with stent placement 06/2018. Patient was found to be hypothyroid with markedly elevated TSH, which has been improving with IV levothyroxine. Endocrine Dr. Gonzales was consulted. Previous TSH levels in 03/2018 were within normal range and patient has never been prescribed thyroid medication. Thyroid ultrasound showed possible mild thyroiditis and tiny hypoechoic cystic structure for which follow up thyroid ultrasound in [address] Gonzales recommended discharge home with 125 mcg of Levothyroxine PO once daily. Patients chest and back pain was due to muscle spasms in the area. Chest xray showed no active disease, and electrocardiogram and troponins were negative x3. Cardiology Dr. Rebolledo was consulted and patient is stable and cleared for discharge from cardiac standpoint. Pain reproducible on palpation, and resolved on its own. Patient had an elevated BUN/Cr on admission /3.8. Home Lasix, Metformin was held. Nephrology Dr. Bey was consulted. Patient has stable stage 4 CKD. Pt did not want evaluation for AVF for potential future hemodialysis at this time, even though she was informed that renal disease will worsen. Pt started on repaglinide as metformin contraindicated in kidney disease. On discharge interview, pt reports feeling better and would like to go home. Denies fever, chills, chest pain, sob, abdominal pain, n/v/d, headache, dizziness, lightheadedness, difficulty urinating, bowel complaints, melena, he matochezia. This is a summary of the hospital course, please see EMR for full details. Discharge Exam - Head Exam Head Exam: ATRAUMATIC, NORMAL INSPECTION - Eye Exam Eye Exam: EOMI, Normal appearance - ENT Exam ENT Exam: Mucous Membranes Moist - Neck Exam Additional comments: nontender thyroid gland - Respiratory Exam Respiratory Exam: NORMAL BREATHING PATTERN. absent: Rales, Rhonchi, Wheezes, Respiratory Distress, Stridor - Cardiovascular Exam Cardiovascular Exam: REGULAR RHYTHM, +S1, +S2. absent: Tachycardia, Diastolic murmur - GI/Abdominal Exam GI & Abdominal Exam: Normal Bowel Sounds, Soft. absent: Distended, Firm, Guarding, Rebound, Rigid, Tenderness - Extremities Exam Extremities exam: normal capillary refill, pedal pulses present Additional comments: No calf tenderness, no pedal edema - Back Exam Back exam: NORMAL INSPECTION. absent: CVA tenderness (L), CVA tenderness (R) - Psychiatric Exam Psychiatric exam: Normal Affect, Normal Mood - Skin Skin Exam: Dry, Normal Color, Warm Discharge Plan - Discharge Medications Prescriptions: amLODIPine [Norvasc] 10 mg PO DAILY #30 tab Aspirin [Aspirin Chewable] 81 mg PO DAILY #30 chew Carvedilol [Coreg] 3.125 mg PO BID #60 tab Clopidogrel [Plavix] 75 mg PO DAILY #30 tab Divalproex [Depakote DR] 500 mg PO BID #60 tcp Ferrous Sulfate [Feosol] 325 mg PO BID #60 tab Levothyroxine [Synthroid] 125 mcg PO DAILY #30 tab Repaglinide [Prandin] 1 mg PO TIDAC #90 tab risperiDONE [RisperDAL Tab] 2 mg PO HS #30 tab Sertraline [Zoloft] 100 mg PO HS #30 tab Simvastatin 20 mg PO DAILY #30 tablet - Follow Up Plan Condition: STABLE Disposition: HOME/ ROUTINE Instructions: Heart Healthy Diet, Diabetes Exchange Diet, Diabetes Diet , Chest Pain (DC), Acute Kidney Failure (DC), Back Pain (GEN) Additional Instructions: Pt is medically stable for discharge home. Prescriptions provided: Amlodipine 10 mg PO once daily at 8 am. #30 Risperidone 2 mg PO once nightly at 8 pm. #30 Simvastatin 20 mg PO once nightly at 8 pm. #30 Sertraline 100 mg PO once nightly at 8 pm. #30 Repaglinide 1 mg PO three times daily at 8 am, 2pm, 8 pm. #90 Ferrous sulfate 325 mg PO twice daily at 8 am and 8 pm. #60 Divalproex 500 mg PO twice daily at 8 am and 8 pm. #60 Clopidogrel 75 mg PO once daily at 8 am. #30 Carvedilol 3.125 mg PO twice daily at 8 am and 8 pm. #30 Aspirin 81 mg mg PO once daily at 8 am. #30 Please take one tab by mouth once daily 6 am, on an empty stomach, one hour before breakfast/food intake. #30 DO NOT take Metformin. DO NOT take Losartan/Cozaar. DO NOT take Insulin. Pt has an appointment with Dr. Gutierrez on 08/23. Pt should follow up with [facility] within 7-10 days of discharge. Please call to make an appointment. Please return to the nearest emergency department if symptoms worsen. Instructions explained to pt, who understands and agrees with discharge plan. Pt es mdicamente estable para el meño domiciliaria. Prescripciones proporcionadas: Amlodipina 10 mg PO lora vez al da a las 8 am. # 30 Risperidona 2 mg PO lora vez por la noche a las 8 pm. # 30 Simvastatina 20 mg PO lora vez por la noche a las 8 pm. # 30 Sertralina 100 mg PO lora vez por la noche a las 8 pm. # 30 Repaglinida 1 mg PO raphael veces al da a las 8 am, 2pm, 8 pm. # 90 Sulfato ferroso 325 mg PO dos veces al da a las 8 am y 8 pm. # 60 Divalproex 500 mg PO dos veces al da a las 8 am y 8 pm. # 60 Clopidogrel 75 mg PO lora vez al da a las 8 am. # 30 Carvedilol 3.125 mg PO dos veces al da a las 8 am y 8 pm. # 30 Aspirina 81 mg mg PO lora vez al da a las 8 am. # 30 Naco lora ficha por va oral lora vez al da, a las 6 am, con el estmago vaco, lora hora antes del desayuno / ingesta de alimentos. # 30 NO tome metformina. NO tome Losartan / Cozaar. NO tome insulina. Pt tiene lora xochitl con el Dr. Gutierrez el 08/23. Pt debe hacer un seguimiento con [facility] dentro de los 7 a 10 low posteriores al meño. Llame al para hacer lora xochitl. Si los sntomas empeoran, vuelva al servicio de urgencias ms cercano. Instrucciones explicadas a pt, que entiende y est de acuerdo con el plan de meño Referrals: 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 Hospital Course - Lab Results Lab Results: Micro Results 08/19/18 02:35 Blood Blood Culture - Preliminary NO GROWTH AFTER 3 DAYS 08/19/18 02:35 Blood Blood Culture - Preliminary NO GROWTH AFTER 3 DAYS 08/18/18 22:56 Urine,Clean Catch Urine Culture - Final No Growth (<1,000 CFU/ML) Most Recent Lab Values WBC 4.3 K/uL (4.8-10.8) L 08/21/18 06:25 RBC 2.75 Mil/uL (3.80-5.20) L 08/21/18 06:25 Hgb 8.5 g/dL (11.0-16.0) L 08/21/18 06:25 Hct 24.4 % (34.0-47.0) L 08/21/18 06:25 MCV 88.9 fL (81.0-99.0) 08/21/18 06:25 MCH 31.0 pg (27.0-31.0) 08/21/18 06:25 MCHC 34.9 g/dL (33.0-37.0) 08/21/18 06:25 RDW 12.8 % (11.5-14.5) 08/21/18 06:25 Plt Count 182 K/uL (130-400) 08/21/18 06:25 MPV 6.8 fL (7.2-11.7) L 08/21/18 06:25 Neut % (Auto) 56.0 % (50.0-75.0) 08/21/18 06:25 Lymph % (Auto) 30.6 % (20.0-40.0) 08/21/18 06:25 [place] % (Auto) 7.7 % (0.0-10.0) 08/21/18 06:25 Eos % (Auto) 4.8 % (0.0-4.0) H 08/21/18 06:25 Baso % (Auto) 0.9 % (0.0-2.0) 08/21/18 06:25 Neut # (Auto) 2.4 K/uL (1.8-7.0) 08/21/18 06:25 Lymph # (Auto) 1.3 K/uL (1.0-4.3) 08/21/18 06:25 [place] # (Auto) 0.3 K/uL (0.0-0.8) 08/21/18 06:25 Eos # (Auto) 0.2 K/uL (0.0-0.7) 08/21/18 06:25 Baso # (Auto) 0.0 K/uL (0.0-0.2) 08/21/18 06:25 Retic Count 1.6 % (0.5-1.5) H D 08/20/18 10:53 PT 12.9 SECONDS (9.7-12.2) H 08/18/18 19:15 INR 1.2 08/18/18 19:15 APTT 28.3 SECONDS (21-34) 08/18/18 19:15 Sodium 132 mmol/L (132-148) 08/21/18 06:25 Potassium 5.1 mmol/L (3.6-5.2) 08/21/18 06:25 Chloride 97 mmol/L (98-107) L 08/21/18 06:25 Carbon Dioxide 25 mmol/L (22-30) 08/21/18 06:25 Anion Gap 15 (10-20) 08/21/18 06:25 BUN 35 mg/dL (7-17) H 08/21/18 06:25 Creatinine 3.6 mg/dL (0.7-1.2) H 08/21/18 06:25 Est GFR ( Amer) 16 08/21/18 06:25 Est GFR (Non-Af Amer) 13 08/21/18 06:25 POC Glucose (mg/dL) 70 mg/dL (65-110) 08/21/18 06:36 Random Glucose 61 mg/dL (65-105) L D 08/21/18 06:25 Calcium 8.6 mg/dl (8.6-10.4) 08/21/18 06:25 Phosphorus 4.7 mg/dL (2.5-4.5) H 08/21/18 06:25 Magnesium 2.4 mg/dL (1.6-2.3) H 08/21/18 06:25 Iron 85 ug/dL (37-170) 08/20/18 10:53 TIBC 280 ug/dL (250-450) 08/20/18 10:53 % Saturation 32 (20-55) 08/20/18 10:53 Ferritin 242.0 ng/mL 08/20/18 10:53 Total Bilirubin 0.4 mg/dL (0.2-1.3) 08/21/18 06:25 AST 23 U/L (14-36) 08/21/18 06:25 ALT 8 U/L (9-52) L 08/21/18 06:25 Alkaline Phosphatase 48 U/L (38-126) 08/21/18 06:25 Total Creatine Kinase < 20 U/L (30-135) L 08/19/18 09:27 CK-MB (Mass) 0.27 ng/mL (0.0-3.38) 08/19/18 09:27 Troponin I < 0.0120 ng/mL (0.00-0.120) 08/19/18 09:27 Total Protein 7.2 g/dL (6.3-8.3) 08/21/18 06:25 Albumin 4.0 g/dL (3.5-5.0) 08/21/18 06:25 Globulin 3.3 gm/dL (2.2-3.9) 08/21/18 06:25 Albumin/Globulin Ratio 1.2 (1.0-2.1) 08/21/18 06:25 Triglycerides 268 mg/dL (0-149) H D 08/19/18 02:19 Cholesterol 243 mg/dL (0-199) H 08/19/18 02:19 LDL Cholesterol Direct 126 mg/dL (0-129) 08/19/18 02:19 HDL Cholesterol 38 mg/dL (30-70) 08/19/18 02:19 Lipase 151 U/L (23-300) 08/18/18 19:15 Free T4 0.64 ng/dL (0.78-2.19) L 08/20/18 07:55 Thyroxine (T4) 3.47 ug/dL (5.5-11.0) L 08/20/18 07:55 Free T3 pg/mL 2.90 pg/mL (2.77-5.27) 08/20/18 07:55 TSH 3rd Generation 71.70 mIU/L (0.46-4.68) H 08/21/18 06:25 Cortisol AM Sample 11.3 ug/dL (4.46-22.7) 08/20/18 07:55 Urine Color Yellow (YELLOW) 08/18/18 19:37 Urine Clarity Clear (Clear) 08/18/18 19:37 Urine pH 6.0 (5.0-8.0) 08/18/18 19:37 Ur Specific [place] 1.010 (1.003-1.030) 08/18/18 19:37 Urine Protein 2+ mg/dL (NEGATIVE) H 08/18/18 19:37 Urine Glucose (UA) Normal mg/dL (Normal) 08/18/18 19:37 Urine Ketones Negative mg/dL (NEGATIVE) 08/18/18 19:37 Urine Blood Negative (NEGATIVE) 08/18/18 19:37 Urine Nitrate Positive (NEGATIVE) H 08/18/18 19:37 Urine Bilirubin Negative (NEGATIVE) 08/18/18 19:37 Urine Urobilinogen 4.0 mg/dL (0.2-1.0) H 08/18/18 19:37 Ur Leukocyte Esterase 2+ Juan Jose/uL (Negative) H 08/18/18 19:37 Urine WBC (Auto) 44 /hpf (0-5) H 08/18/18 19:37 Urine RBC (Auto) 3 /hpf (0-3) 08/18/18 19:37 Ur Squamous Epith Cells 1 /hpf (0-5) 08/18/18 19:37 Urine Bacteria Few (<OCC) H 08/18/18 19:37 U Random Total Protein 288.0 mg/dL (0.0-12.0) H 08/20/18 10:34 Thyroperoxidase Ab <1 IU/mL (<9) 08/20/18 07:55 Thyroglobulin Antibody <1 IU/mL (< OR = 1) 08/20/18 07:55 Attending/Attestation - Attestation I have personally seen and examined this patient.: Yes I have fully participated in the care of the patient.: Yes I have reviewed all pertinent clinical information, including history, physical exam and plan: Yes Notes (Text): 08/22/18 17:25 Please note that this patient was discharged on 08/21/18. Discharge instructions were gone over in detail with resident Dr. Delgado. Yossi Moore D.O.
[2018-08-21] MEDS ORDERED: Divalproex 250 mg DR Tab PO SCH (18:00)
--- NOTE | 2018-08-21 21:25 | PN ---
DATE: 08/21/2018 ENDOCRINOLOGY FOLLOWUP NOTE LOCATION: Room 664. SUBJECTIVE: This is a 58-year-old female, presenting here with marked hypothyroidism related to a possible autoimmune thyroiditis and is now being followed closely for metabolic management. She received parenteral with IV levothyroxine replacement therapy as given and tolerated. LABORATORY DATA: Repeat chemistries today showed a BUN of 35, sodium 132, potassium 5.1, chloride 97, CO2 of 25, glucose 61, creatinine 3.6. Her repeat thyroid study showed a TSH of 71.70 as noted with a free T4 of 0.64 and serum cortisol level of 11.3. ASSESSMENT: This is a 58-year-old female with near myxedema presenting here with marked hypothyroidism noted both historically,clinically, and biochemically; most likely related to underlying autoimmune thyroiditis. PLAN OF MANAGEMENT: I have discussed with the hospitalist today, we will switch over now to oral levothyroxine replacement therapy as given as she had a remarkable thereof to parenteral levothyroxine therapy as given. We will add levothyroxine given as 125 mcg p.o. once daily in the morning as ordered. We will obtain serial chemistries and supplement accordingly as needed. We will follow. Kaley Gonzales MD
[2018-08-22] MEDS ORDERED: Levothyroxine 125 MCG TAB PO SCH (06:30)
--- NOTE | 2018-08-22 10:50 | PCM.HF ---
Heart Failure Core Measure - Heart Failure Ejection Fraction: 40 % or Greater ERENDIRA Inhibitor Prescribed: No Contraindication/Reason for not providing: CKD Beta-Jarrett Prescribed: Carvedilol Angiotensin II Receptor Jarrett Prescribed: No Contraindication/Reason for not providing: CKD AnticoagulationTherapy for Atrial Fibrillation/Atrialflutter: Yes Contraindication/Reason for not providing: DAPT for CAD with stent Aldosterone Antagonist Prescribed: No Contraindication/Reason for not providing: not indicated Hydralazine Nitrate Prescribed: No Contraindication/Reason for not providing: not clinically indicated Implantable Cardioverter Defibrillator Therapy: No Contraindication/Reason for not providing: not indicated - Follow up Will be discharged to: Home Follow Up Date (must be within 7 days from discharge): 08/28/18 (pt to call [facility] to make appt)
== END 2018-08-21 15:53 | disposition home or self-care (01) | DRG 424 ==
LOC: C.ER 17:28 → C.9E 19:50 → C.6T 20:00 → OBSVTOIN 08-20 17:08
PROVIDERS: ADMIT Family Medicine; ATTEND Family Medicine
DX: E06.3 Autoimmune thyroiditis (principal); I13.0 Hypertensive heart and chronic kidney disease with heart failure and stage 1 through stage 4 chronic kidney disease, or unspecified chronic kidney disease; N17.9 Acute kidney failure, unspecified; E04.0 Nontoxic diffuse goiter; E11.21 Type 2 diabetes mellitus with diabetic nephropathy; N18.4 Chronic kidney disease, stage 4 (severe); E11.42 Type 2 diabetes mellitus with diabetic polyneuropathy; E11.51 Type 2 diabetes mellitus with diabetic peripheral angiopathy without gangrene; E11.22 Type 2 diabetes mellitus with diabetic chronic kidney disease; D63.1 Anemia in chronic kidney disease; E11.319 Type 2 diabetes mellitus with unspecified diabetic retinopathy without macular edema; E11.65 Type 2 diabetes mellitus with hyperglycemia; E78.00 Pure hypercholesterolemia, unspecified; F31.9 Bipolar disorder, unspecified; F41.1 Generalized anxiety disorder; I25.10 Atherosclerotic heart disease of native coronary artery without angina pectoris; Z95.5 Presence of coronary angioplasty implant and graft

== ENCOUNTER 2018-08-28 09:51 | Emergency (ER) | payer MEDICAID ==
[2018-08-28 09:51] VITALS: BMI 29.2
[2018-08-28 09:58] VITALS: O2SAT 100
[2018-08-28] MEDS ORDERED: Lidocaine 5% Patch TD STA (10:09)
[2018-08-28] MEDS ORDERED: Lidocaine 5% Patch TD ONE (10:16)
--- NOTE | 2018-08-28 11:14 | C.PDOC ---
History Of Present Illness 58 year old female with a history of diabetes and schizophrenia presents to the emergency department with complaints of right-sided scapular pain radiating to the right breast for the last three weeks. Patient states that she was seen for the same complaint in the clinic and given pain medications, but returned today due to the pain being worse. Patient states the pain is worse upon movement and palpation, and qualifies it as 10/10 and constant. Time Seen by Provider: 08/28/18 10:01 Chief Complaint (Nursing): Back Pain History Per: Patient History/Exam Limitations: no limitations Onset/Duration Of Symptoms: Other (3 weeks) Current Symptoms Are (Timing): Still Present Quality Of Discomfort: "Pain" Pain Scale Rating Of: 10 Associated Symptoms: None Exacerbating Factor(s): Movement, Other (palpation) Past Medical History Reviewed: Historical Data, Nursing Documentation, Vital Signs Vital Signs: Last Vital Signs Temp 98.6 F 08/28/18 09:56 Pulse 86 08/28/18 09:56 Resp 17 08/28/18 09:56 BP 169/83 H 08/28/18 09:56 Pulse Ox 100 08/28/18 09:56 Primary Care Provider: Isis Roberson M - Medical History PMH: Arthritis, Depression, Diabetes, HTN, Hypercholesterolemia, Hyperlipidemia, Chronic Kidney Disease, Schizophrenia Denies: Diverticulitis Surgical History: Coronary Stent (x2), - [facility] Procedures DILATION OF 1 COR ART WITH 2 DRUG-ELUT, PERC APPROACH (06/13/18) FLUOROSCOPY OF MULT COR ART USING L OSM CONTRAST (06/13/18) FLUOROSCOPY OF RIGHT AND LEFT HEART USING L OSM CONTRAST (06/13/18) MEASURE CARDIAC SAMPL & PRESSURE, BILATERAL, PERC (06/13/18) OTHER SKIN & SUBQ I D (07/30/13) Family History: States: No Known Family Hx - Social History Hx Tobacco Use: No Hx Alcohol Use: No Hx Substance Use: No - Immunization History Hx Tetanus Toxoid Vaccination: Yes Hx Influenza Vaccination: No Hx Pneumococcal Vaccination: No Review Of Systems Except As Marked, All Systems Reviewed And Found Negative. Constitutional: Negative for: Fever, Chills Cardiovascular: Positive for: Chest Pain Respiratory: Negative for: Cough, Shortness of Breath Gastrointestinal: Negative for: Nausea, Vomiting, Diarrhea Musculoskeletal: Positive for: Back Pain (right side) Neurological: Negative for: Weakness, Numbness Physical Exam - Physical Exam Appears: Non-toxic, No Acute Distress Skin: Normal Color, Warm, Dry Head: Atraumatic, Normacephalic Eye(s): bilateral: Normal Inspection Nose: Normal Neck: Normal, Supple Chest: Symmetrical, No Tenderness Cardiovascular: Rhythm Regular, No Murmur Respiratory: Normal Breath Sounds, No Rales, No Rhonchi, No Wheezing Back: Muscle Spasm (to the right scapula), Paraspinal Tenderness (reproducible tenderness to the right scapula ) ED Course And Treatment O2 Sat by Pulse Oximetry: 100 (RA) Pulse Ox Interpretation: Normal Medical Decision Making Medical Decision Making: Plan: Lidoderm Patch Motrin 600mg PO Tylenol 975 mg PO Disposition Counseled Patient/Family Regarding: Diagnosis, Need For Followup, Rx Given - Disposition Referrals: [facility] [Outside] Disposition: HOME/ ROUTINE Disposition Time: 11:40 Condition: STABLE Prescriptions: Ibuprofen [Motrin] 600 mg PO TID #15 tab Instructions: Muscle and Bone Pain (DC) Forms: [facility] [facility] (Indian), Gen Discharge Inst Indian - POA Present On Arrival: None - Clinical Impression Clinical Impression: Muscle pain - Scribe Statement The provider has reviewed the documentation as recorded by the Scribe (Deandre Han) Provider Attestation: All medical record entries made by the Scribe were at my direction and personally dictated by me. I have reviewed the chart and agree that the record accurately reflects my personal performance of the history, physical exam, medical decision making, and the department course for this patient. I have also personally directed, reviewed, and agree with the discharge instructions and disposition.
[2018-08-28 11:40] VITALS: BP 184/84; PULSE 73; RESP 16; TEMP 98.7
== END 2018-08-28 11:49 | disposition home or self-care (01) ==
LOC: C.ER 09:51
DX: M79.10 Myalgia, unspecified site (principal)

== ENCOUNTER 2018-08-29 03:14 | Emergency (ER) | payer MEDICAID ==
[2018-08-29 03:15] VITALS: BMI 29.2
--- NOTE | 2018-08-29 03:46 | C.PDOC ---
History Of Present Illness Patient presents with right shoulder pain and right breast pain for the past month that worsened tonight. Patient was seen here yesterday and had negative work up. She states the lidocaine patches do not work. Pain is localized to the right axilla as well as the right breast, she reports pain with movement. Denies fever, chills, nausea, or vomiting. Time Seen by Provider: 08/29/18 03:46 Chief Complaint (Nursing): Upper Extremity Problem/Injury History Per: Patient History/Exam Limitations: no limitations Onset/Duration Of Symptoms: Days, Worse Since (Tonight) Current Symptoms Are (Timing): Still Present Severity: Moderate Pain Scale Rating Of: 4 Exacerbating Factor(s): Movement Recent travel outside of the [place]: No Past Medical History Reviewed: Historical Data, Nursing Documentation, Vital Signs Vital Signs: Last Vital Signs Temp 98.3 F 08/29/18 03:21 Pulse 92 H 08/29/18 03:21 Resp 20 08/29/18 03:21 BP 196/89 H 08/29/18 03:21 Pulse Ox 100 08/29/18 03:21 Primary Care Provider: Isis Roberson - Medical History PMH: Arthritis, Depression, Diabetes, HTN, Hypercholesterolemia, Hyperlipidemia, Chronic Kidney Disease, Schizophrenia Denies: Diverticulitis Surgical History: Coronary Stent (x2), - [facility] Procedures DILATION OF 1 COR ART WITH 2 DRUG-ELUT, PERC APPROACH (06/13/18) FLUOROSCOPY OF MULT COR ART USING L OSM CONTRAST (06/13/18) FLUOROSCOPY OF RIGHT AND LEFT HEART USING L OSM CONTRAST (06/13/18) MEASURE CARDIAC SAMPL & PRESSURE, BILATERAL, PERC (06/13/18) OTHER SKIN & SUBQ I D (07/30/13) Family History: States: No Known Family Hx - Social History Hx Tobacco Use: No Hx Alcohol Use: No Hx Substance Use: No - Immunization History Hx Tetanus Toxoid Vaccination: Yes Hx Influenza Vaccination: No Hx Pneumococcal Vaccination: No Review Of Systems Constitutional: Negative for: Fever, Chills Cardiovascular: Negative for: Chest Pain, Palpitations Respiratory: Negative for: Cough, Shortness of Breath Gastrointestinal: Negative for: Nausea, Vomiting Musculoskeletal: Positive for: Shoulder Pain (Right), Other (Right breast pain) Neurological: Negative for: Weakness, Numbness Physical Exam - Physical Exam Appears: Non-toxic, Other (Slightly anxious) Skin: Warm, Dry Head: Normacephalic Oral Mucosa: Moist Neck: Trachea Midline, Supple Lymphatic: No Adenopathy Chest: Symmetrical, No Tenderness, Other (Right breast within normal limits, no masses or deformity. Chaperoned by RN.) Cardiovascular: Rhythm Regular Respiratory: No Rales, No Rhonchi, No Wheezing Gastrointestinal/Abdominal: Soft, No Tenderness Neurological/Psych: Oriented x3 ED Course And Treatment - Laboratory Results Result Diagrams: 08/29/18 04:13 08/29/18 04:13 O2 Sat by Pulse Oximetry: 100 (Room air) Pulse Ox Interpretation: Normal Progress Note: Blood work and CT chest ordered. Toradol administered. Reevaluation Time: 06:51 Reassessment Condition: Improved Medical Decision Making Medical Decision Making: Upon provider reevaluation patient is feeling better, is medically stable, and requires no further treatment in the ED at this time. Patient will be discharged home with Rx for tramadol . Counseling was provided and all questions were answered regarding diagnosis and need for follow up with the referred clinic. There is agreement to discharge plan. Return if symptoms persist or worsen. Disposition Counseled Patient/Family Regarding: Studies Performed, Diagnosis, Need For Followup, Rx Given - Disposition Referrals: Isis Roberson MD [Family Provider] - Disposition: HOME/ ROUTINE Disposition Time: 03:46 Condition: FAIR Prescriptions: traMADol [Ultram] 50 mg PO QID PRN #20 tab PRN Reason: Pain, Severe (8-10) Instructions: Shoulder Pain (DC) Forms: [email or web address] ([place] Citizen) Print Language: [email or web address] - Clinical Impression Clinical Impression: Shoulder pain, right, Bursitis - Scribe Statement The provider has reviewed the documentation as recorded by the Scribrachel Delacruz All medical record entries made by the Scribe were at my direction and personally dictated by me. I have reviewed the chart and agree that the record accurately reflects my personal performance of the history, physical exam, medical decision making, and the department course for this patient. I have also personally directed, reviewed, and agree with the discharge instructions and disposition.
[2018-08-29 04:18] LABS: EOS # 0.2 K/uL (0.0-0.7); HEMOGLOBIN 8.5 g/dL (11.0-16.0); MEAN CORPUSCULAR HEMOGLOBIN 30.9 pg (27.0-31.0); MONO # 0.4 K/uL (0.0-0.8); WHITE BLOOD COUNT 4.9 K/uL (4.8-10.8)
[2018-08-29 04:29] LABS: VENOUS BLOOD GAS BASE EXCESS -3.8 mmol/L (0.0-2.0); VENOUS BLOOD GAS PCO2 39 mmHg (40-60); VENOUS BLOOD GAS PO2 34 mm/Hg (30-55); VENOUS BLOOD PH 7.35 (7.32-7.43)
[2018-08-29 04:31] LABS: BASO % 0.7 % (0.0-2.0); EOS % 3.9 % (0.0-4.0); LYMPH % 19.6 % (20.0-40.0); MEAN CELL VOLUME 90.1 fL (81.0-99.0); MEAN CORPUSCULAR HGB CONC 34.3 g/dL (33.0-37.0); MONO % 9.1 % (0.0-10.0); NEUT # 3.3 K/uL (1.8-7.0); NEUT % 66.7 % (50.0-75.0); RBC 2.76 Mil/uL (3.80-5.20); RED CELL DISTRIBUTION WIDTH 12.8 % (11.5-14.5)
[2018-08-29 04:34] LABS: ALB/GLOB RATIO 1.3 (1.0-2.1); CALCIUM 8.8 mg/dl (8.6-10.4)
[2018-08-29 05:42] VITALS: RESP 16
[2018-08-29 06:54] VITALS: O2SAT 100
[2018-08-29 07:00] VITALS: BP 157/85; PULSE 97; TEMP 98.3
--- NOTE | 2018-08-29 13:12 | CT ---
Date of service: 08/29/2018 CT chest without IV contrast Indication: r breast, shoulder., r cw pain Technique: Contiguous axial images were obtained through the chest without intravenous contrast enhancement. Sagittal and coronal reconstructions were generated and reviewed. This CT exam was performed using 1 or more of the following dose reduction techniques: Automated exposure control, adjustment of the MAA and/or kV according to patient size, and/or use of iterative reconstruction technique. Radiation dose (DLP): 513.59 MGy-cm. Comparison: Chest xray performed 08/18/18, noncontrast chest CT performed 04/18/18 Findings: Visualized portions of the inferior thyroid gland appear unremarkable. The unenhanced mediastinal and hilar vascular structures appear grossly unremarkable. Mild cardiomegaly. Trace pericardial effusion. Evidence of coronary artery stents; correlate with clinical history. Mild basilar atelectasis. No focal consolidation. No pleural effusion. No pneumothorax. Limited visualization of the noncontrast upper abdomen appears grossly unremarkable. Degenerative changes of the spine. Impression: Mild cardiomegaly. Trace pericardial effusions. Evidence of coronary artery stents; correlate with clinical history. Mild basilar atelectasis. Preliminary impression was provided by [employer].
== END 2018-08-29 07:01 | disposition home or self-care (01) ==
LOC: SUPCPDRO 03:14 → C.ER 03:14
DX: M25.511 Pain in right shoulder (principal); M75.51 Bursitis of right shoulder; I12.9 Hypertensive chronic kidney disease with stage 1 through stage 4 chronic kidney disease, or unspecified chronic kidney disease; E11.22 Type 2 diabetes mellitus with diabetic chronic kidney disease; N18.9 Chronic kidney disease, unspecified
CPT/HCPCS: 71250; 80053; 82803; 85025; 96374; 99284; J1885